=== PATIENT | male | born 1980 | race Caucasian/White ===

== ENCOUNTER 2018-03-07 21:07 | Inpatient (IN) ==
--- NOTE | 2018-03-07 23:13 | P.HPIM ---
History of Present Illness Service: [facility] Primary Care Physician: Reginald Mays History of Present Illness: 37 y/o male with a history of asthma, and seizures( as a child, not on medication) was a transfer from [facility] due to abdominal pain resulting in hydronephrosis of the left side. Patient states he has had abdominal pain on his left side that started this morning. He states the pain is an 8/10, constant, throbbing, with radiation to his back, with associated nausea and hematuria, worse with movement, better with pain medication. Denies any chest pain, sob, fever or chills. no history of kidney stones. Inpatient Certification Inpatient Certification: I certify that the inpatient services were ordered in accordance with Medicare regulations governing the order. This includes certification that hospital inpatient services are reasonable and necessary and in the case of services not specified as inpatient-only under 42 CFR 419.22(n), that they are appropriately provided as inpatient services in accordance to with the 2-midnight benchmark under 43 CFR 412.3(e) Estimated Total Length of Stay (Days): 2 Plans for Post Hospital Care: Home Review of Systems Review of Systems: all other systems reviewed are negative PMFSH History History Provided By: Patient Medical History Medical History Asthma (Acute) Seizures (Acute) Surgical History Surgical History Hx of tympanostomy tubes (Acute) Pneumothorax (Acute) Family History Family History Other Family history non-contributory Social History Social History Substance History: No History of Abuse Second Hand Smoke Exposure: No Smoking Status: Former smoker Tobacco Type: Cigarettes How Often Do You Have a Drink Containing Alcohol: Never Recent Travel in [place] within the Last 8 Weeks: No Recent Out of Country Travel within the Last 8 Weeks: No Medications and Allergies Allergies Allergy/AdvReac Type Severity Reaction Status Date / Time meperidine [From Demerol] Allergy Hives Verified 03/09/18 04:22 Active Medications: Active Medications Acetaminophen (Tylenol) 650 mg PO Q4H PRN PRN Reason: Temp > 100.4 Ondansetron HCl (Zofran Inj) 4 mg IV.PUSH Q6H PRN PRN Reason: NAUSEA OR VOMITING Sodium Chloride (Ns Flush) 2 ml IV.FLUSH BID CHLOE Sodium Chloride (Ns Flush) 2 ml IV.FLUSH PRN PRN PRN Reason: FLUSH AFTER USING IV ACCESS Physical Exam Narrative: GENERAL: Thin patient in no distress SKIN: Warm and dry. EYES: No scleral icterus. No injection or drainage. NECK: Supple, trachea midline. No JVD or lymphadenopathy. CARDIOVASCULAR: Regular rate and rhythm without murmurs, gallops, or rubs. RESPIRATORY: Breath sounds equal bilaterally. No accessory muscle use. GASTROINTESTINAL: Abdomen soft, non-tender, nondistended. MUSCULOSKELETAL: No cyanosis, or edema. BACK: Nontender without obvious deformity. No CVA tenderness. Results Labs CBC & Chem 7: 03/10/18 04:23 03/10/18 04:23 Caprini VTE Risk Assessment Caprini VTE Risk Assessment: No/Low Risk (score <= 1) Caprini Risk Assessment Model: Point Value = 1 Point Value = 2 Point Value = 3 Point Value = 5 Age 41-60 Minor surgery BMI > 25 kg/m2 Swollen legs Varicose veins or History of unexplained or recurrent spontaneous Oral contraceptives or hormone replacement Sepsis (< 1 month) Serious lung disease, including pneumonia (< 1 month) Abnormal pulmonary function Acute myocardial infarction Congestive heart failure (< 1 month) History of inflammatory bowel disease Medical patient at bed rest Age 61-74 Arthroscopic surgery Major open surgery (> 45 min) Laparoscopic surgery (> 45 min) Malignancy Confined to bed (> 72 hours) Immobilizing plaster cast Central venous access Age >= 75 History of VTE Family history of VTE Factor V Leiden Prothrombin [id number] Lupus anticoagulant Anticardiolipin antibodies Elevated serum homocysteine Heparin-induced thrombocytopenia Other congenital or acquired thrombophilia Stroke (< 1 month) Elective arthroplasty Hip, pelvis, or leg fracture Acute spinal cord injury (< 1 month) Prophylaxis Regimen: Total Risk Factor Score Risk Level Prophylaxis Regimen 0-1 Low Early ambulation 2 Moderate Order ONE of the following: *Sequential Compression Device (SCD) *Heparin 5000 units SQ BID 3-4 Higher Order ONE of the following medications: *Heparin 5000 units SQ TID *Enoxaparin/Lovenox 40 mg SQ daily (WT < 150 kg, CrCl > 30 mL/min) *Enoxaparin/Lovenox 30 mg SQ daily (WT < 150 kg, CrCl > 10-29 mL/min) *Enoxaparin/Lovenox 30 mg SQ BID (WT < 150 kg, CrCl > 30 mL/min) AND/OR *Sequential Compression Device (SCD) 5 or more Highest Order ONE of the following medications: *Heparin 5000 units SQ TID (Preferred with Epidurals) *Enoxaparin/Lovenox 40 mg SQ daily (WT < 150 kg, CrCl > 30 mL/min) *Enoxaparin/Lovenox 30 mg SQ daily (WT < 150 kg, CrCl > 10-29 mL/min) *Enoxaparin/Lovenox 30 mg SQ BID (WT < 150 kg, CrCl > 30 mL/min) AND *Sequential Compression Device (SCD) Assessment and Plan Plan 37 y/o male with a history of asthma, and seizures(not on any medication) was a transfer from [facility] due to abdominal pain resulting in hydronephrosis of the left side. 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 -Consult to Urology for evaluation -Pain management with IV morphine -NPO -IVF DVT prophylaxis: SCDs Attending Attestation I saw and evaluated patient.I have reviewed labs,rads and BLINTZE ROLLER's assessment/ plan I agree with assessment and plan as documented in BLINTZE ROLLER's note. See additional attending comments below: Patient presenting with abdominal pain, found to have lt horse shoe kidney stone with attendant hydronephrosis, and acute kidney injury due to obstructive uropathy. He has clinical features in keeping with sepsis as well. urology consulted, patient started on IV antibiotics,pain control, fluid resuscitation. monitor progress.
[2018-03-08] MEDS: Sod Chloride 0.9% Inj 1,000 ML IV.CONT SCH ×3 (01:01→20:54)
[2018-03-08] MEDS: Morphine Inj 4 MG/ML Vial IV.PUSH PRN ×3 (01:02→20:55)
[2018-03-08 07:14] LABS: Hematocrit 32.3 % (39.0-51.0); Hemoglobin 10.4 gm/dL (13.0-17.0); Mean Corpuscular HGB Conc 32.3 % (32.0-36.0); Mean Corpuscular Hemoglobin 29.2 pg (27.0-34.0); Mean Corpuscular Volume 90.5 fL (80.0-100.0); Mean Platelet Volume 10.4 fL (7.0-11.0); Platelet Count 209 th/mm3 (150-450); Red Blood Count 3.57 mil/mm3 (4.50-5.90); Red Cell Distribution Width 14.5 % (11.6-17.2); White Blood Count 28.7 th/mm3 (4.0-11.0)
[2018-03-08 07:31] LABS: Alanine Aminotransferase 13 U/L (12-78); Albumin 3.7 g/dL (3.4-5.0); Anion Gap 14 meq/L (5-15); Aspartate Aminotransferase 10 U/L (15-37); Blood Urea Nitrogen 10 mg/dL (7-18); Carbon Dioxide 21.4 meq/L (21.0-32.0); Chloride 109 meq/L (98-107); Glomerular Filtration Rate 35 mL/min (>89); Glucose,Random 220 mg/dL (74-106); Potassium 3.4 meq/L (3.5-5.1); Sodium 144 meq/L (136-145)
[2018-03-08 07:33] LABS: Alkaline Phosphatase 62 U/L (45-117); Total Protein 6.6 g/dL (6.4-8.2)
--- NOTE | 2018-03-08 09:36 | P.PNIM ---
Subjective Interval history: Follow-up visit hydronephrosis, hematuria, possible sepsis. Patient seen and examined today. Reported by nurse to be tachycardic, hypotensive. Patient states he is having pain 6/10 back side, denies any dysuria. States that it is also painful when he takes deep breath. States he does not feel any chest pain nor the palpitations. Denies SOB/ dyspnea. Denies headaches, dizziness. Reports chills overnight. Physical Exam Vital signs: Vital Signs 03/07/18 23:39 03/08/18 04:25 Temperature 98.1 F 98.0 F Pulse Rate 77 68 Respiratory Rate 20 20 Blood Pressure 157/77 H 149/84 H Pulse Oximetry 97 96 Intake & Output 03/07/18 03/08/18 03/08/18 18:59 06:59 18:59 Intake Total 0 / 0 Output Total 325 / 325 Balance -325 / -325 Weight 52.8 kg Intake: Oral 0 / 0 Output: Urine 325 / 325 Other: Date of Last Bowel Movement 03/07/18 # Bowel Movements 0 Weight On Admission 52.8 kg Narrative: GENERAL: Thin patient in no distress SKIN: Warm and dry. EYES: No scleral icterus. No injection or drainage. NECK: Supple, trachea midline. No JVD or lymphadenopathy. CARDIOVASCULAR: Tachycardia. RESPIRATORY: Breath sounds equal bilaterally. No accessory muscle use. GASTROINTESTINAL: Abdomen soft, non-tender, nondistended. MUSCULOSKELETAL: No cyanosis, or edema. BACK: Nontender without obvious deformity. No CVA tenderness. Results Labs CBC & Chem 7: 03/08/18 06:11 03/08/18 15:00 Assessment and Plan Plan 37 y/o male with a history of asthma, and seizures(not on any medication) was a transfer from [facility] due to abdominal pain resulting in hydronephrosis of the left side. 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 -Consult to Urology for evaluation -Pain management with IV morphine -NPO -IVF DVT prophylaxis: SCDs, if no procedures today, will start heparin ATTENDING ADDENDUM: I have seen and examined patient. I have reviewed H&P, reviewed labs, rads. I have discussed the plan of care with ENRIQUE Moore and her documentation above reflects my assessment and plan as discussed with her. Patient presented with abdominal pain, found to have a horse shoe kidney stone with attendant hydronephrosis. He has also been having chills. He was tachycardic and hypotensive and required fluid resuscitation this morning. He has significant leucocytosis in keeping with a sepsis. Also has PARISH which is likely due to obstructive uropathy. Started on IV antibiotics, fluid bolus, sent blood and urine cultures, lactic acid. Keep on IV fluids. plan to transfer to [facility] Code Status: Full Code Discussed Condition With: Patient, nursing, Dr. lFeming Discharge Planning: Plan to DC home when clinically improved. Pending urology consult Progress Note: Quality VTE Deep Vein Thrombosis/Pulmonary Embolism Present on Admission: No
[2018-03-08 09:42] LABS: Lymphocytes 3 % (9-44); Monocytes 6 % (0-8)
[2018-03-08 09:43] LABS: Platelet Estimate Normal (Normal); Platelet Morphology Normal (Normal)
[2018-03-08] MEDS: Sod Chloride 0.9% Inj 1,000 ML IV.SIG SCH ×5 (09:43→15:05)
[2018-03-08] MEDS ORDERED: Vancomycin Inj 1,000 MG in Sodium Chlor 0.9% Inj 250 ML IV.SIG ONE (11:30)
[2018-03-08] MEDS: Piperacil/Tazo 3.375 GM Premix 3.375 GM/50 ML PIGGYBACK IV.SIG SCH ×3 (11:35→21:00)
[2018-03-08 15:26] LABS: Activated Partial Thrombo Time 28.9 sec (23.4-31.7)
--- NOTE | 2018-03-08 15:26 | P.CONURO ---
History of Present Illness Service: [facility] Consult date: 03/08/18 Requesting Physician: Benedict Little Reason for Consult: Urosepsis, hydronephrosis of Left Horse shoe kidney Primary Care Provider: Reginald Mays Chief Complaint: Blood in urine History of Present Illness: Patient transferred from [facility], last night with complaint of gross hematuria. Also, some mild left flank and LLQ discomfort. Non-contrast CT scan there shows a severely hydronephrotic left side of a HORSESHOE KIDNEY discovered for the first time; previously unknown to the patient. Last night the CBC, BMP, GFR were all normal. But UA showed infection. Now pt. is septic, WBC 57997 with bands, GFR 35. Lactate 6.9. Patient agrees to having the left kidney drained; either by cystoscopic placement of urinary stent in the OR, or by Interventional Radiologist placing a percutaneous nephrostomy. Patient's mother is present in the room. She says that pt. had a UTI in September, was given antibiotics in [place]. Patient did not follow up with a doctor after returning to [facility]. No other Urological history. No dysuria, colic, stones. [facility] - History History Provided By: Patient, Family Member (Mother), Medical Record ([facility] ED records, CT scan.) - Medical History Medical History: Medical History (Last Reviewed 03/07/18 @ 23:40 by MIKAYLA Mitchell) Asthma Seizures - Surgical History Surgical History: Surgical History (Last Reviewed 03/07/18 @ 23:41 by MIKAYLA Mitchell) Hx of tympanostomy tubes Pneumothorax - Family History Family History: Family History (Last Reviewed 03/08/18 @ 00:42 by MIKAYLA Mitchell) Other Family history non-contributory - Social History I have reviewed the patient's Social History: Yes - Tobacco History Second Hand Smoke Exposure: No Tobacco Use In Past 30 Days: No Smoking Status: Former smoker Tobacco Type: Cigarettes - Alcohol History How Often Do You Have a Drink Containing Alcohol: Never - Substance Use History Substance History: No History of Abuse - Immunization History Hx Influenza Vaccine This Season: No Medications and Allergies Active Medications: Active Medications Acetaminophen (Tylenol) 650 mg PO Q4H PRN PRN Reason: Temp > 100.4 Sodium Chloride (Ns Inj) 1,000 mls @ 100 mls/hr IV.CONT .Q10H [facility] Last Admin: 03/08/18 11:35 Dose: 100 mls/hr Piperacillin/Tazobactam/Dextrose (Zosyn 3.375 Gm Premix) 3.375 gm in 50 mls @ 100 mls/hr IV.SIG Q6H [facility] Last Infusion: 03/08/18 12:22 Dose: Infused Morphine Sulfate (Morphine Inj) 2 mg IV.PUSH Q4H PRN PRN Reason: pain 1 to 10 Last Admin: 03/08/18 04:42 Dose: 2 mg Ondansetron HCl (Zofran Inj) 4 mg IV.PUSH Q6H PRN PRN Reason: NAUSEA OR VOMITING Last Admin: 03/08/18 01:03 Dose: 4 mg Sodium Chloride (Ns Flush) 2 ml IV.FLUSH BID [facility] Last Admin: 03/08/18 09:43 Dose: Not Given Sodium Chloride (Ns Flush) 2 ml IV.FLUSH PRN PRN PRN Reason: FLUSH AFTER USING IV ACCESS Allergies Allergy/AdvReac Type Severity Reaction Status Date / Time No Known Allergies Allergy Unverified 03/07/18 23:05 Physical Exam Vital Signs - 24 hr 03/07/18 23:39 03/08/18 04:25 03/08/18 09:15 Temperature 98.1 F 98.0 F 97.3 F L Pulse Rate 77 68 142 H Respiratory Rate 20 20 16 Blood Pressure 157/77 H 149/84 H 84/53 L Pulse Oximetry 97 96 96 03/08/18 11:25 03/08/18 12:00 03/08/18 12:12 Temperature 97.5 F L Pulse Rate 124 H 123 H Respiratory Rate 18 24 Blood Pressure 98/56 L 99/59 L Pulse Oximetry 99 03/08/18 12:13 03/08/18 12:15 03/08/18 12:30 Temperature 99.1 F Pulse Rate 141 H 123 H 128 H Respiratory Rate 24 25 H 21 Blood Pressure 98/63 L 105/68 99/67 L Pulse Oximetry 93 L 99 97 03/08/18 12:45 03/08/18 13:00 Temperature Pulse Rate 128 H 104 H Respiratory Rate 23 19 Blood Pressure 100/63 107/70 Pulse Oximetry 97 98 Physical Exam: GENERAL: This is a well-nourished, well-developed, thin patient, in no apparent distress, lying in bed quietly, a good historian. SKIN: No rashes, ecchymoses or lesions. Cool and dry. HEAD: Atraumatic. Normocephalic. No temporal or scalp tenderness. EYES: Pupils equal round and reactive. Extraocular motions intact. No scleral icterus. No injection or drainage. ENT: Nose without bleeding, purulent drainage or septal hematoma. Throat without erythema, tonsillar hypertrophy or exudate. Uvula midline. Airway patent. NECK: Trachea midline. No JVD or lymphadenopathy. Supple, nontender, no meningeal signs. CARDIOVASCULAR: Pulse Regular rate and rhythm . RESPIRATORY: Not examined GASTROINTESTINAL: Abdomen RT side:soft, non-tender, nondistended. No hepato- splenomegaly, or palpable masses. No guarding. LFT side: mild direct tenderness with guarding. No rebound. GENITOURINARY: EXT GENITALIA: WNL: Penis circumcised, testes WNL. FLANKS: Tender LFT to percussion. RECTUM/PROSTATE: Not examined. MUSCULOSKELETAL: Extremities without clubbing, cyanosis, or edema. No joint tenderness, effusion, or edema noted. No calf tenderness. NEUROLOGICAL: Awake and alert. Cranial nerves II through XII intact. Motor and sensory grossly within normal limits. Five out of 5 muscle strength in all muscle groups. Normal speech. Lab results reviewed: Yes Laboratory Results - last 24 hr 03/08/18 03/08/18 03/08/18 06:11 06:11 11:00 WBC 28.7 H RBC 3.57 L Hgb 10.4 L Hct 32.3 L MCV 90.5 MCH 29.2 MCHC 32.3 RDW 14.5 Plt Count 209 MPV 10.4 Prelim Diff (Auto) Manual diff required WBC Differential Manual diff final Seg Neuts % (Manual) 84 H Band Neuts % (Manual) 7 H Lymphocytes % (Manual) 3 L Monocytes % (Manual) 6 Abs Neuts (Manual) 26.1 H Differential Comment . Platelet Estimate Normal Platelet Morphology Normal Sodium 144 Potassium 3.4 L Chloride 109 H Carbon Dioxide 21.4 Anion Gap 14 BUN 10 Creatinine 2.14 H Estimated GFR 35 L Random Glucose 220 H Lactic Acid 6.9 H* Calcium 8.0 L Total Bilirubin 1.1 H AST 10 L ALT 13 Alkaline Phosphatase 62 Total Protein 6.6 Albumin 3.7 Result Diagrams: 03/08/18 06:11 03/08/18 15:00 Personally reviewed images: Yes Assessment and Plan - Assessment (1) Sepsis due to urinary tract infection Code(s): A41.9 - Sepsis, unspecified organism; N39.0 - Urinary tract infection, site not specified Status: Acute Onset Date: ~03/07/18 (2) Hydronephrosis of left kidney Code(s): N13.30 - Unspecified hydronephrosis Status: Chronic (3) Horseshoe kidney Code(s): Q63.1 - Lobulated, fused and horseshoe kidney Status: Chronic Onset Date: Unknown - Plan Interventional Radiology has agreed to place a Percutaneous Nephrostomy into the LEFT kidney today. Back up plan is to try to place a urinary stent cystoscopically in the OR. However, there is a great possibility that the presumed UPJ stenosis will prevent passage of guide wires and stent. Discussed Condition With: Patient, mother, nurse Mckenzie, Dr. Burak Turpin, Interventional Radiologist Dr. Coates.
[2018-03-08 15:56] LABS: Albumin 2.7 g/dL (3.4-5.0); Calcium 6.7 mg/dL (8.5-10.1); Carbon Dioxide 23.3 meq/L (21.0-32.0); Potassium 4.5 meq/L (3.5-5.1); Total Protein 4.9 g/dL (6.4-8.2)
[2018-03-08] MEDS ORDERED: fentaNYL Citrate Inj 250 MCG/5 ML Ampul ONE (15:56)
[2018-03-08] MEDS ORDERED: Lidocaine PF 1% Inj 30 ML Vial ONE (15:57)
--- NOTE | 2018-03-08 16:48 | P.RAD ---
Post Procedure Progress Note - Pre Procedure Diagnosis (1) Hydronephrosis of left kidney - Post Procedure Diagnosis (1) Hydronephrosis of left kidney - Procedure Information Procedure Date: 03/08/18 Supervising Radiologist: Sarabjit Coates MD Anesthesia: Conscious Sedation - Plan of Activity Patient to Unit: Nursing Unit Patient Condition: Good See PACS Report for procedural detail/treatment.
[2018-03-08] MEDS ORDERED: Iohexol 350 MG/ML 50 ML Vial (for Rad Diag) IVCONTRAST ONE (16:54)
[2018-03-08 17:49] LABS: Amorphous Sediment,Urine Rare /hpf; Bacteria,Urine Occasional /hpf; Bilirubin,Urine Negative (Negative); Clarity,Urine Cloudy (Clear); Color,Urine Amber (Yellw/Straw); Glucose,Urine (UA) 50 mg/dL (Negative); Leukocyte Esterase,Urine Negative (Negative); Nitrite,Urine Negative (Negative); Specific Gravity,Urine 1.019 (1.002-1.035); Squamous Epithelial Cell,Urine <1 /hpf (0-5)
[2018-03-08] MEDS: Acetaminophen 325 MG Tablet PO PRN (18:24)
--- NOTE | 2018-03-08 19:35 | ECG ---
Date Performed: 03/08/2018 Time Performed: 09:37:58 PTAGE: 37 years EKG: SINUS TACHYCARDIA ABNORMAL RHYTHM ECG NO PREVIOUS TRACING DOCTOR: Kartik Fang Interpretating Date/Time 03/08/2018 19:34:12
[2018-03-08 22:31] LABS: Hematocrit 17.6 % (39.0-51.0); Hemoglobin 5.8 gm/dL (13.0-17.0)
[2018-03-08 23:34] LABS: Hematocrit 17.3 % (39.0-51.0); Hemoglobin 5.8 gm/dL (13.0-17.0)
[2018-03-08] MEDS ORDERED: Sodium Chlor 0.9% Inj 250 ML IV.SIG SCH (23:45)
[2018-03-09] MEDS: Sod Chloride 0.9% Inj 1,000 ML IV.CONT SCH ×4 (02:41→23:30)
[2018-03-09 03:56] LABS: Baso % (Auto) 0.2 % (0.0-2.0); Eos % (Auto) 0.1 % (0.0-4.0); Hematocrit 24.4 % (39.0-51.0); Hemoglobin 8.4 gm/dL (13.0-17.0); Lymph # (Auto) 1.6 th/mm3 (1.0-4.8); Lymph % (Auto) 9.2 % (9.0-44.0); Mean Corpuscular HGB Conc 34.4 % (32.0-36.0); Mean Corpuscular Hemoglobin 29.8 pg (27.0-34.0); Mean Corpuscular Volume 86.9 fL (80.0-100.0); Mono # (Auto) 1.5 th/mm3 (0.0-0.9); Mono % (Auto) 8.4 % (0.0-8.0); Neut # (Auto) 14.5 th/mm3 (1.8-7.7); Neut % (Auto) 82.1 % (16.0-70.0); Platelet Count 112 th/mm3 (150-450); Red Blood Count 2.81 mil/mm3 (4.50-5.90); Red Cell Distribution Width 14.3 % (11.6-17.2); White Blood Count 17.7 th/mm3 (4.0-11.0)
[2018-03-09] MEDS: Piperacil/Tazo 3.375 GM Premix 3.375 GM/50 ML PIGGYBACK IV.SIG SCH ×4 (04:23→21:12)
[2018-03-09 04:31] LABS: Albumin 2.7 g/dL (3.4-5.0); Calcium 7.2 mg/dL (8.5-10.1); Carbon Dioxide 22.8 meq/L (21.0-32.0); Potassium 3.9 meq/L (3.5-5.1); Total Protein 5.2 g/dL (6.4-8.2)
--- NOTE | 2018-03-09 07:39 | P.PNURO ---
Subjective Patient symptoms today: Pt seen and examined. Urine from price is dark and appears to be old blood. Left PNCT blood tinged. PT s/p 2 Units PRBC's for Hgb 5.8. Now 8.4. Objective Vital Signs: Vital Signs 03/08/18 09:15 03/08/18 11:25 03/08/18 12:00 Temperature 97.3 F L 97.5 F L Pulse Rate 142 H 124 H 123 H Respiratory Rate 16 18 Blood Pressure 84/53 L 98/56 L Pulse Oximetry 96 99 03/08/18 12:12 03/08/18 12:13 03/08/18 12:15 Temperature 99.1 F Pulse Rate 141 H 123 H Respiratory Rate 24 24 25 H Blood Pressure 99/59 L 98/63 L 105/68 Pulse Oximetry 93 L 99 03/08/18 12:30 03/08/18 12:45 03/08/18 13:00 Temperature Pulse Rate 128 H 128 H 104 H Respiratory Rate 21 23 19 Blood Pressure 99/67 L 100/63 107/70 Pulse Oximetry 97 97 98 03/08/18 13:15 03/08/18 13:30 03/08/18 13:45 Temperature Pulse Rate 97 H 118 H 111 H Respiratory Rate 16 24 20 Blood Pressure 110/69 110/70 113/72 Pulse Oximetry 99 99 100 03/08/18 14:00 03/08/18 14:15 03/08/18 14:30 Temperature Pulse Rate 101 H 101 H 101 H Respiratory Rate 15 15 15 Blood Pressure 113/72 113/71 111/74 Pulse Oximetry 99 99 99 03/08/18 14:45 03/08/18 15:00 03/08/18 15:20 Temperature Pulse Rate 104 H 107 H 119 H Respiratory Rate 18 19 28 H Blood Pressure 115/76 122/75 116/73 Pulse Oximetry 99 100 100 03/08/18 15:30 03/08/18 16:58 03/08/18 17:00 Temperature Pulse Rate 113 H 106 H 104 H Respiratory Rate 21 17 15 Blood Pressure 115/72 Pulse Oximetry 98 100 03/08/18 17:14 03/08/18 17:30 03/08/18 17:32 Temperature Pulse Rate 111 H 106 H 106 H Respiratory Rate 19 Blood Pressure 114/69 Pulse Oximetry 99 03/08/18 18:00 03/08/18 18:02 03/08/18 18:53 Temperature Pulse Rate 94 H 106 H Respiratory Rate 16 18 Blood Pressure 115/69 Pulse Oximetry 99 03/08/18 21:41 03/08/18 22:00 03/09/18 01:02 Temperature 99.1 F Pulse Rate 107 H 115 H 109 H Respiratory Rate 18 Blood Pressure 129/60 Pulse Oximetry 99 03/09/18 01:13 03/09/18 01:18 03/09/18 01:56 Temperature 98.3 F 98.3 F Pulse Rate 97 H 107 H 86 Respiratory Rate 18 16 20 Blood Pressure 107/61 107/61 Pulse Oximetry 99 100 03/09/18 01:58 03/09/18 02:02 03/09/18 02:05 Temperature 98.3 F 98.6 F Pulse Rate 100 H 89 100 H Respiratory Rate 19 21 Blood Pressure 101/61 94/61 L Pulse Oximetry 100 100 03/09/18 02:38 03/09/18 04:39 03/09/18 04:40 Temperature 99.0 F Pulse Rate 96 H 98 H Respiratory Rate 16 23 Blood Pressure 104/63 Pulse Oximetry 100 03/09/18 06:18 Temperature Pulse Rate 107 H Respiratory Rate Blood Pressure Pulse Oximetry Intake & Output 03/08/18 03/09/18 03/09/18 18:59 06:59 18:59 Intake Total 7470 / 7470 1900 / 1900 Output Total 390 / 390 455 / 455 Balance 7080 / 7080 1445 / 1445 Weight 52.8 kg 53.9 kg Intake: IV 7350 / 7350 1100 / 1100 NS Inj 1,000 ML @ 100 mls/hr IV 1000 / 1000 1000 / 1000 .CONT .Q10H [facility] Rx#:[id number] Zosyn 3.375 GM Premix 3.375 gm 100 / 100 100 / 100 In 50 ml @ 100 mls/hr IV.SIG Q6H [facility] Rx#:[id number] NS Inj 1,000 ML @ 2000 mls/hr 6000 / 6000 IV.SIG Q30M [facility] Rx#:[id number] Vancomycin Inj 1,000 MG In NS 250 / 250 Inj 250 ML @ 250 mls/hr IV.SIG ONCE ONE Rx#:[id number] Oral 120 / 120 Intake (Blood Product) Amt 800 / 800 Rbc As-3 Leukoreduced Unit 400 / 400 [id number] Rbc As-3 Leukoreduced Unit 400 / 400 [id number] Output: Urine 350 / 350 Urine Amount (Catheter) 400 / 400 Indwelling Urethral Catheter 400 / 400 Urine Amount (Stoma) 55 / Nephrostomy Tube Left Other: Date of Last Bowel Movement 03/07/18 03/07/18 Result Diagrams: 03/09/18 03:44 03/09/18 03:44 Medications and IVs: Active Medications Generic Name Dose Route Start Last Admin Trade Name Freq PRN Reason Stop Dose Admin Acetaminophen 650 mg 03/07/18 23:05 03/08/18 18:24 Tylenol PO 650 mg Q4H PRN Administration Temp > 100.4 Sodium Chloride 1,000 mls @ 100 mls/hr 03/08/18 00:40 03/09/18 02:41 Ns Inj IV.CONT 100 mls/hr .Q10H [facility] Administration Piperacillin/Tazobactam/Dextrose 3.375 gm in 50 mls @ 100 mls/hr 03/08/18 10: 00 03/09/18 05:15 Zosyn 3.375 Gm Premix IV.SIG Infused Q6H [facility] Infusion Sodium Chloride 250 mls @ 15 mls/hr 03/08/18 23:45 03/09/18 01:09 Ns Inj IV.SIG 03/09/18 16:24 15 mls/hr ONCE [facility] Administration Morphine Sulfate 2 mg 03/08/18 00:38 03/08/18 20:55 Morphine Inj IV.PUSH 2 mg Q4H PRN Administration pain 1 to 10 Ondansetron HCl 4 mg 03/07/18 23:05 03/08/18 01:03 Zofran Inj IV.PUSH 4 mg Q6H PRN Administration NAUSEA OR VOMITING Sodium Chloride 2 ml 03/08/18 09:00 03/08/18 20:55 Ns Flush IV.FLUSH 2 ml BID [facility] Administration Sodium Chloride 2 ml 03/07/18 23:05 Ns Flush IV.FLUSH PRN PRN FLUSH AFTER USING IV ACCESS Objective Remarks: CV: sinus tach Abd:soft, mild distension; no rebound Price: old dark blood Ext: neg C/C/E Assessment and Plan - Assessment (1) Sepsis due to urinary tract infection Code(s): A41.9 - Sepsis, unspecified organism; N39.0 - Urinary tract infection, site not specified Status: Acute Onset Date: ~03/07/18 (2) Hydronephrosis of left kidney Code(s): N13.30 - Unspecified hydronephrosis Status: Chronic (3) Horseshoe kidney Code(s): Q63.1 - Lobulated, fused and horseshoe kidney Status: Chronic Onset Date: Unknown - Plan Interventional Radiology has agreed to place a Percutaneous Nephrostomy into the LEFT kidney today. Back up plan is to try to place a urinary stent cystoscopically in the OR. However, there is a great possibility that the presumed UPJ stenosis will prevent passage of guide wires and stent. 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
--- NOTE | 2018-03-09 09:46 | IR ---
EXAM DATE: 03/08/2018 5:13 PM EST AGE/SEX: 37 years / Male INDICATIONS: Patient presents with left side hydronephrosis in need of nephrostomy tube placement. CLINICAL DATA: This is the patient's initial encounter. Patient reports that signs and symptoms have been present for 1 day and indicates a pain score of 6/10. MEDICAL/SURGICAL HISTORY: . Asthma, Seizures, Hydronephrosis, Hematuria, . Tympanostomy tubes . COMPARISON: [facility] – [place], CT ABDOMEN & PELVIS W/O CONTRAST, 03/09/2018. . FLUORO TIME (min): 4.4 IMAGE SERIES: 3 RADIATION DOSE: 330.5 mGy CAK SEDATION TIME (min): 30 CONTRAST (cc): 40 Omnipaque (iohexol) 350 MEDICATION(S): 2 mg midazolam (Versed) IV 100 mcg fentanyl (Sublimaze) IV Prophylactic antibiotics were administered with appropriate pre-procedure timing. DEVICE(S): 10 Hungarian nephrostomy catheter Expel Drainage catheter with Twist-Loc Hub. . . PROCEDURE : 1. Ultrasound-guided puncture of the kidney. 2. Antegrade percutaneous pyelogram. 3. Percutaneous nephrostomy placement. 4. Conscious sedation with continuous EKG and oximetry monitoring. The risks, benefits and alternatives to the procedure were explained and verbal and written consent w as obtained. The site was prepped in sterile fashion. Full sterile technique was used, including ca p, mask, sterile gloves and gown and a large sterile sheet. Hand hygiene and 2% chlorhexidine and/or betadine/alcohol prep was utilized per protocol for cutaneous antisepsis. Sterile gel and sterile probe cover were utilized for ultrasound guidance. The skin and subcutaneous tissues were infiltrate d with local anesthetic solution. With ultrasound and fluoroscopic guidance the selected kidney was punctured and a percutaneous antegr jl pyelogram was performed demonstrating a dilated collecting system. Serial dilatation was perform ed and a prescribed nephrostomy tube was placed within the renal pelvis and sutured in place. Ultrasound of the left kidney demonstrates prominent echogenic material throughout the renal pelvis w hich may reflect hemorrhage or infection. 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 The collecting system is extremely abnormal with no normal calyces iden tified. Extensive clotted material was removed from the collecting system. Conscious sedation was performed with the prescribed dosages and duration as above in the presence of an independent trained radiology nurse to assist in the monitoring of the patient. EKG and oximetry remained stable throughout the procedure. The patient tolerated the procedure well and there were n o complications. The patient was sent to post anesthesia recovery in stable condition. CONCLUSION: 1. Uncomplicated nephrostomy tube placement as above. CT scan will be repeated to evaluate the kidne y following percutaneous drainage Electronically signed by: Sarabjit Coates MD Board Certified Radiologist 03/09/2018 9:44 AM EST
[2018-03-09] MEDS: Morphine Inj 4 MG/ML Vial IV.PUSH PRN ×2 (10:02→18:20)
--- NOTE | 2018-03-09 11:20 | CT ---
EXAM DATE: 03/09/2018 10:30 AM EST AGE/SEX: 37 years / Male INDICATIONS: Adnominal pain and distention post nephrostomy placement. CLINICAL DATA: This is the patient's initial encounter. Patient reports that signs and symptoms have been present for 1 day and indicates a pain score of 6/10. MEDICAL/SURGICAL HISTORY: Asthma. Seizures. Horseshoe kidney. Nephrostomy tube, left. RADIATION DOSE: 6.71 CTDI (mGy) COMPARISON: No prior exams available for comparison. TECHNIQUE: Multiple contiguous axial images were obtained through the abdomen. Images were obtained using multiple row detector helical technique. Using automated exposure control and adjustment of the mA and/or kV according to patient size, radiation dose was kept as low as reasonably achievable to o btain optimal diagnostic quality images. DICOM format image data is available electronically for rev iew and comparison. FINDINGS: A small left effusion is present with atelectasis at the left base. Small right-sided effusion is als o present. There is hypodensity within the liver compatible with cyst measuring 1.4 cm in segment 8 T he spleen is normal in size and free of focal defects. There is nephrostomy in place in a markedly en larged abnormal left kidney which has a horseshoe configuration and findings of parenchyma extending across the midline to a smaller right kidney. The tube is in the abnormal collection system and there is little recognizable kidney present. Perinephric stranding is present and there is a small amount of free fluid within the pelvis as well. Examination the pelvis demonstrates a decompressed urinary bladder with a Caldwell in place. No abnormal ly enlarged lymph nodes are identified. CONCLUSION: Small bilateral effusions and bibasilar atelectasis. Small amount of free fluid in the lower abdomen and in the pelvis. Left nephrostomy is present in a markedly abnormal enlarged left horseshoe kidney. The findings were discussed with Dr. Turpin at time of dictation. Electronically signed by: Sarabjit Coates MD Board Certified Radiologist 03/09/2018 11:19 AM EST
--- NOTE | 2018-03-09 14:12 | P.PNIM ---
Subjective Interval history: feels better today, pain has improved. No fevers or chills. Interval events: has hematuria and bloody drainage from nephrostomy, Hb dropped to 5's range overnight, was transfused with 2prbc, Hb 8.2 this morning. Physical Exam Vital signs: Vital Signs 03/08/18 14:15 03/08/18 14:30 03/08/18 14:45 Temperature Pulse Rate 101 H 101 H 104 H Respiratory Rate 15 15 18 Blood Pressure 113/71 111/74 115/76 Pulse Oximetry 99 99 99 03/08/18 15:00 03/08/18 15:20 03/08/18 15:30 Temperature Pulse Rate 107 H 119 H 113 H Respiratory Rate 19 28 H 21 Blood Pressure 122/75 116/73 115/72 Pulse Oximetry 100 100 98 03/08/18 16:58 03/08/18 17:00 03/08/18 17:14 Temperature Pulse Rate 106 H 104 H 111 H Respiratory Rate 17 15 19 Blood Pressure 114/69 Pulse Oximetry 100 99 03/08/18 17:30 03/08/18 17:32 03/08/18 18:00 Temperature Pulse Rate 106 H 106 H 94 H Respiratory Rate 16 Blood Pressure 115/69 Pulse Oximetry 99 03/08/18 18:02 03/08/18 18:53 03/08/18 21:41 Temperature Pulse Rate 106 H 107 H Respiratory Rate 18 Blood Pressure Pulse Oximetry 03/08/18 22:00 03/09/18 01:02 03/09/18 01:13 Temperature 99.1 F Pulse Rate 115 H 109 H 97 H Respiratory Rate 18 18 Blood Pressure 129/60 Pulse Oximetry 99 03/09/18 01:18 03/09/18 01:56 03/09/18 01:58 Temperature 98.3 F 98.3 F 98.3 F Pulse Rate 107 H 86 100 H Respiratory Rate 16 20 19 Blood Pressure 107/61 107/61 101/61 Pulse Oximetry 99 100 100 03/09/18 02:02 03/09/18 02:05 03/09/18 02:38 Temperature 98.6 F 99.0 F Pulse Rate 89 100 H 96 H Respiratory Rate 21 16 Blood Pressure 94/61 L 104/63 Pulse Oximetry 100 100 03/09/18 04:39 03/09/18 04:40 03/09/18 06:18 Temperature Pulse Rate 98 H 107 H Respiratory Rate 23 Blood Pressure Pulse Oximetry 03/09/18 09:15 03/09/18 10:05 Temperature Pulse Rate 121 H Respiratory Rate 15 Blood Pressure Pulse Oximetry Intake & Output 03/08/18 03/09/18 03/09/18 18:59 06:59 18:59 Intake Total 7470 / 7470 1900 / 1900 50 / 50 Output Total 390 / 390 455 / 455 Balance 7080 / 7080 1445 / 1445 50 / 50 Weight 52.8 kg 53.9 kg Intake: IV 7350 / 7350 1100 / 1100 50 / 50 NS Inj 1,000 ML @ 100 mls/hr IV 1000 / 1000 1000 / 1000 .CONT .Q10H CHLOE Rx#:[id number] Zosyn 3.375 GM Premix 3.375 gm 100 / 100 100 / 100 50 / 50 In 50 ml @ 100 mls/hr IV.SIG Q6H [facility]LOE Rx#:[id number] NS Inj 1,000 ML @ 2000 mls/hr 6000 / 6000 IV.SIG Q30M [facility]LOE Rx#:[id number] Vancomycin Inj 1,000 MG In NS 250 / 250 Inj 250 ML @ 250 mls/hr IV.SIG ONCE ONE Rx#:[id number] Oral 120 / 120 Intake (Blood Product) Amt 800 / 800 Rbc As-3 Leukoreduced Unit 400 / 400 [id number] Rbc As-3 Leukoreduced Unit 400 / 400 [id number] Output: Urine 350 / 350 Urine Amount (Catheter) 400 / 400 Indwelling Urethral Catheter 400 / 400 Urine Amount (Stoma) 40 / 40 55 / 55 Nephrostomy Tube Left 40 / 40 55 / 55 Other: Date of Last Bowel Movement 03/07/18 03/07/18 03/07/18 Narrative: GENERAL: Thin patient in no distress SKIN: Warm and dry. EYES: No scleral icterus. No injection or drainage. NECK: Supple, trachea midline. No JVD or lymphadenopathy. CARDIOVASCULAR: Tachycardia. RESPIRATORY: Breath sounds equal bilaterally. No accessory muscle use. GASTROINTESTINAL: Abdomen soft, non-tender, nondistended. Lt nephrostomy tube with blood drainage. GUN:price cath in situ, hematuria noted. MUSCULOSKELETAL: No cyanosis, or edema. BACK: Nontender without obvious deformity. No CVA tenderness. Urinary Catheter Management Indwelling Urethral Catheter: Cath placed during this visit: no Results Labs CBC & Chem 7: 03/09/18 03:44 03/09/18 03:44 Labs: Microbiology 03/08/18 11:00 Blood - Peripheral Aerobic Blood Culture - Preliminary No growth in 1 day 03/08/18 11:00 Blood - Peripheral Anaerobic Blood Culture - Preliminary No growth in 1 day 03/08/18 10:54 Blood - Peripheral Aerobic Blood Culture - Preliminary No growth in 1 day 03/08/18 10:54 Blood - Peripheral Anaerobic Blood Culture - Preliminary No growth in 1 day Imaging Imaging: Impressions Nephrostomy 03/08/18 00:00 CONCLUSION: 1. Uncomplicated nephrostomy tube placement as above. CT scan will be repeated to evaluate the kidney following percutaneous drainage Abdomen/Pelvis CT 03/09/18 00:00 CONCLUSION: Small bilateral effusions and bibasilar atelectasis. Small amount of free fluid in the lower abdomen and in the pelvis. Left nephrostomy is present in a markedly abnormal enlarged left horseshoe kidney. The findings were discussed with Dr. Turpin at time of dictation. Assessment and Plan (1) Sepsis due to urinary tract infection: Code(s): A41.9 - Sepsis, unspecified organism; N39.0 - Urinary tract infection, site not specified Status: Acute Onset Date: ~03/07/18 (2) Hydronephrosis of left kidney: Code(s): N13.30 - Unspecified hydronephrosis Status: Chronic Onset Date: Unknown (3) Horseshoe kidney: Code(s): Q63.1 - Lobulated, fused and horseshoe kidney Status: Chronic Onset Date: Unknown Plan 37 y/o male with a history of asthma, and seizures(not on any medication) was a transfer from [facility] due, CT abdo/pelvis revealed a horse shoe kidney stone and hydronephrosis. 1.Sepsis likely due to infected renal stone -Leucocytosis trending down,28-->17, lactate trending down 6.9-->3.3. -blood cultures negative. -BP responded appropriately to fluids, he remains tachycardic. -continue IV fluids. -Continue IV Zosyn, adjust dose to renal function. repeat lactic acid. 2.Acute kidney injury-due to obstructive uropathy- Cr 2.14-->1.51, trending down after nephrostomy. avoid nephrotoxins, maintain strict i/o. continue to hydrate 3.Lt Hydronephrosis with possible hemorrhage due to Horse shoe kidney- appreciate urology recs, patient s/p nephrostomy 4. Acute anemia due to blood loss-secondary to hematuria. Hb 8.4 this morning. Monitor H/h q6h, transfuse if Hb<7. DVT prophylaxis: SCDs, no heparin given hematuria. Progress Note: Quality VTE Deep Vein Thrombosis/Pulmonary Embolism Present on Admission: No
[2018-03-09] MEDS ORDERED: Polyethylene Glycol 3350 17 GM Packet PO PRN (14:24)
[2018-03-09 17:39] LABS: Hemoglobin 8.3 gm/dL (13.0-17.0)
[2018-03-09] MEDS: Senna/Docusate Sodium 8.6/50 MG Tablet PO SCH (21:12)
[2018-03-09 22:13] LABS: Hemoglobin 8.5 gm/dL (13.0-17.0)
[2018-03-10] MEDS: Piperacil/Tazo 3.375 GM Premix 3.375 GM/50 ML PIGGYBACK IV.SIG SCH ×4 (03:52→21:02)
[2018-03-10] MEDS: Sod Chloride 0.9% Inj 1,000 ML IV.CONT SCH ×3 (03:53→12:49)
[2018-03-10 05:03] LABS: Baso % (Auto) 0.1 % (0.0-2.0); Hematocrit 26.1 % (39.0-51.0); Hemoglobin 8.8 gm/dL (13.0-17.0); Lymph # (Auto) 1.1 th/mm3 (1.0-4.8); Mean Corpuscular HGB Conc 33.7 % (32.0-36.0); Mean Corpuscular Hemoglobin 29.8 pg (27.0-34.0); Mean Corpuscular Volume 88.3 fL (80.0-100.0); Mean Platelet Volume 9.9 fL (7.0-11.0); Mono # (Auto) 1.3 th/mm3 (0.0-0.9); Mono % (Auto) 7.4 % (0.0-8.0); Neut # (Auto) 15.7 th/mm3 (1.8-7.7); Neut % (Auto) 86.5 % (16.0-70.0); Platelet Count 125 th/mm3 (150-450); Red Blood Count 2.96 mil/mm3 (4.50-5.90); Red Cell Distribution Width 14.5 % (11.6-17.2); White Blood Count 18.2 th/mm3 (4.0-11.0)
[2018-03-10 05:34] LABS: Alanine Aminotransferase 12 U/L (12-78); Albumin 2.6 g/dL (3.4-5.0); Alkaline Phosphatase 45 U/L (45-117); Anion Gap 11 meq/L (5-15); Aspartate Aminotransferase 16 U/L (15-37); Blood Urea Nitrogen 13 mg/dL (7-18); Calcium 8.2 mg/dL (8.5-10.1); Carbon Dioxide 20.9 meq/L (21.0-32.0); Chloride 111 meq/L (98-107); Glomerular Filtration Rate 78 mL/min (>89); Glucose,Random 63 mg/dL (74-106); Potassium 3.9 meq/L (3.5-5.1); Sodium 143 meq/L (136-145); Total Protein 6.2 g/dL (6.4-8.2)
--- NOTE | 2018-03-10 08:34 | P.PNURO ---
Subjective Patient symptoms today: Pt seen and examined. Feeling better today c/w yesterday. Objective Vital Signs: Vital Signs 03/09/18 09:15 03/09/18 10:05 03/09/18 10:15 Temperature Pulse Rate 121 H 130 H Respiratory Rate 15 Blood Pressure Pulse Oximetry 03/09/18 12:03 03/09/18 14:10 03/09/18 16:35 Temperature Pulse Rate 120 H 126 H 115 H Respiratory Rate Blood Pressure Pulse Oximetry 03/09/18 16:42 03/09/18 18:50 03/09/18 20:00 Temperature 99.2 F Pulse Rate 117 H 124 H Respiratory Rate 22 20 Blood Pressure 131/90 Pulse Oximetry 95 03/09/18 20:25 03/09/18 21:00 03/09/18 21:25 Temperature Pulse Rate 120 H 117 H Respiratory Rate 22 24 Blood Pressure 146/89 H Pulse Oximetry 98 03/09/18 22:00 03/09/18 22:17 03/09/18 23:00 Temperature Pulse Rate 130 H 127 H 118 H Respiratory Rate 26 H 18 Blood Pressure 147/96 H 141/83 H Pulse Oximetry 98 98 03/10/18 00:00 03/10/18 00:35 03/10/18 01:00 Temperature 99.1 F Pulse Rate 120 H 114 H 111 H Respiratory Rate 22 27 H Blood Pressure 157/82 H 137/87 Pulse Oximetry 98 98 03/10/18 02:00 03/10/18 02:12 03/10/18 03:00 Temperature Pulse Rate 110 H 105 H 119 H Respiratory Rate 21 26 H Blood Pressure 147/88 H 155/93 H Pulse Oximetry 99 99 03/10/18 04:00 03/10/18 04:06 03/10/18 06:08 Temperature 100.2 F H Pulse Rate 110 H 110 H 124 H Respiratory Rate 19 Blood Pressure 136/85 Pulse Oximetry 98 Intake & Output 03/09/18 03/10/18 03/10/18 18:59 06:59 18:59 Intake Total 990 / 990 1100 / 1100 Output Total 1950 / 1950 1520 / 1520 Balance -960 / -960 -420 / -420 Weight 59.7 kg Intake: IV 350 / 350 1100 / 1100 NS Inj 1,000 ML @ 100 mls/hr IV 1000 / 1000 .CONT .Q10H [facility]LOE Rx#:[id number] Zosyn 3.375 GM Premix 3.375 gm 100 / 100 100 / 100 In 50 ml @ 100 mls/hr IV.SIG Q6H [facility]LOE Rx#:[id number] NS Inj 250 ML @ 15 mls/hr IV. 250 / 250 SIG ONCE CHLOE Rx#:[id number] Oral 640 / 640 Output: Urine 350 / 350 Urine Amount (Catheter) 1300 / 1300 1050 / 1050 Indwelling Urethral Catheter 1300 / 1300 1050 / 1050 Urine Amount (Stoma) 300 / 300 470 / 470 Nephrostomy Tube Left 300 / 300 470 / 470 Other: Date of Last Bowel Movement 03/07/18 03/10/18 Result Diagrams: 03/10/18 04:23 03/10/18 04:23 Imaging: Impressions Nephrostomy 03/08/18 00:00 CONCLUSION: 1. Uncomplicated nephrostomy tube placement as above. CT scan will be repeated to evaluate the kidney following percutaneous drainage Abdomen/Pelvis CT 03/09/18 00:00 CONCLUSION: Small bilateral effusions and bibasilar atelectasis. Small amount of free fluid in the lower abdomen and in the pelvis. Left nephrostomy is present in a markedly abnormal enlarged left horseshoe kidney. The findings were discussed with Dr. Turpin at time of dictation. Medications and IVs: Active Medications Generic Name Dose Route Start Last Admin Trade Name Freq PRN Reason Stop Dose Admin Acetaminophen 650 mg 03/07/18 23:05 03/08/18 18:24 Tylenol PO 650 mg Q4H PRN Administration Temp > 100.4 Al Hydroxide/Mg Hydroxide 30 ml 03/09/18 14:24 03/09/18 18:04 Milk Of Magnesia Liq PO 30 ml Q12H PRN Administration Moderate Constipation Sodium Chloride 1,000 mls @ 100 mls/hr 03/08/18 00:40 03/10/18 06:01 Ns Inj IV.CONT 150 mls/hr .Q10H CHLOE Administration Piperacillin/Tazobactam/Dextrose 3.375 gm in 50 mls @ 100 mls/hr 03/08/18 10: 00 03/10/18 04:33 Zosyn 3.375 Gm Premix IV.SIG Infused Q6H [facility]LOE Infusion Morphine Sulfate 2 mg 03/08/18 00:38 03/09/18 18:20 Morphine Inj IV.PUSH 2 mg Q4H PRN Administration pain 1 to 10 Ondansetron HCl 4 mg 03/07/18 23:05 03/08/18 01:03 Zofran Inj IV.PUSH 4 mg Q6H PRN Administration NAUSEA OR VOMITING Polyethylene Glycol 17 gm 03/09/18 14:24 03/09/18 21:14 Miralax PO 17 gm DAILY PRN Administration Moderate-severe constipation Senna/Docusate Sodium 1 tab 03/09/18 21:00 03/09/18 21:12 Allyssa-Colace PO 1 tab BID CHLOE Administration Sodium Chloride 2 ml 03/08/18 09:00 03/09/18 21:12 Ns Flush IV.FLUSH 2 ml BID CHLOE Administration Sodium Chloride 2 ml 03/07/18 23:05 Ns Flush IV.FLUSH PRN PRN FLUSH AFTER USING IV ACCESS Objective Remarks: CV: sinus tach Abd:soft, mild distension; no rebound Price: old dark blood Ext: neg C/C/E 03/10 CV: sinus tach Abd:soft,less tenderness and distension Price: blood tinged PCNT: bloody Assessment and Plan - Assessment (1) Sepsis due to urinary tract infection Code(s): A41.9 - Sepsis, unspecified organism; N39.0 - Urinary tract infection, site not specified Status: Acute Onset Date: ~03/07/18 (2) Hydronephrosis of left kidney Code(s): N13.30 - Unspecified hydronephrosis Status: Chronic (3) Horseshoe kidney Code(s): Q63.1 - Lobulated, fused and horseshoe kidney Status: Chronic Onset Date: Unknown - Plan Interventional Radiology has agreed to place a Percutaneous Nephrostomy into the LEFT kidney today. Back up plan is to try to place a urinary stent cystoscopically in the OR. However, there is a great possibility that the presumed UPJ stenosis will prevent passage of guide wires and stent. 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
--- NOTE | 2018-03-10 09:05 | P.PNIM ---
Subjective Interval history: overall feels better, having some dry heaves. some soreness at site of nephrostomy insertion. still having intermittent chills. Physical Exam Vital signs: Vital Signs 03/09/18 09:15 03/09/18 10:05 03/09/18 10:15 Temperature Pulse Rate 121 H 130 H Respiratory Rate 15 Blood Pressure Pulse Oximetry 03/09/18 12:03 03/09/18 14:10 03/09/18 16:35 Temperature Pulse Rate 120 H 126 H 115 H Respiratory Rate Blood Pressure Pulse Oximetry 03/09/18 16:42 03/09/18 18:50 03/09/18 20:00 Temperature 99.2 F Pulse Rate 117 H 124 H Respiratory Rate 22 20 Blood Pressure 131/90 Pulse Oximetry 95 03/09/18 20:25 03/09/18 21:00 03/09/18 21:25 Temperature Pulse Rate 120 H 117 H Respiratory Rate 22 24 Blood Pressure 146/89 H Pulse Oximetry 98 03/09/18 22:00 03/09/18 22:17 03/09/18 23:00 Temperature Pulse Rate 130 H 127 H 118 H Respiratory Rate 26 H 18 Blood Pressure 147/96 H 141/83 H Pulse Oximetry 98 98 03/10/18 00:00 03/10/18 00:35 03/10/18 01:00 Temperature 99.1 F Pulse Rate 120 H 114 H 111 H Respiratory Rate 22 27 H Blood Pressure 157/82 H 137/87 Pulse Oximetry 98 98 03/10/18 02:00 03/10/18 02:12 03/10/18 03:00 Temperature Pulse Rate 110 H 105 H 119 H Respiratory Rate 21 26 H Blood Pressure 147/88 H 155/93 H Pulse Oximetry 99 99 03/10/18 04:00 03/10/18 04:06 03/10/18 06:08 Temperature 100.2 F H Pulse Rate 110 H 110 H 124 H Respiratory Rate 19 Blood Pressure 136/85 Pulse Oximetry 98 Intake & Output 03/09/18 03/10/18 03/10/18 18:59 06:59 18:59 Intake Total 990 / 990 1100 / 1100 Output Total 1950 / 1950 1520 / 1520 Balance -960 / -960 -420 / -420 Weight 59.7 kg Intake: IV 350 / 350 1100 / 1100 NS Inj 1,000 ML @ 100 mls/hr IV 1000 / 1000 .CONT .Q10H HCLOE Rx#:[id number] Zosyn 3.375 GM Premix 3.375 gm 100 / 100 100 / 100 In 50 ml @ 100 mls/hr IV.SIG Q6H [facility]LOE Rx#:[id number] NS Inj 250 ML @ 15 mls/hr IV. 250 / 250 SIG ONCE CHLOE Rx#:[id number] Oral 640 / 640 Output: Urine 350 / 350 Urine Amount (Catheter) 1300 / 1300 1050 / 1050 Indwelling Urethral Catheter 1300 / 1300 1050 / 1050 Urine Amount (Stoma) 300 / 300 470 / 470 Nephrostomy Tube Left 300 / 300 470 / 470 Other: Date of Last Bowel Movement 03/07/18 03/10/18 Narrative: GENERAL: Thin patient in no distress SKIN: Warm and dry. EYES: No scleral icterus. No injection or drainage. NECK: Supple, trachea midline. No JVD or lymphadenopathy. CARDIOVASCULAR: Tachycardia. RESPIRATORY: Breath sounds equal bilaterally. No accessory muscle use. GASTROINTESTINAL: Abdomen soft, non-tender, nondistended. Lt nephrostomy tube with blood drainage. GUN:price cath in situ, hematuria noted. MUSCULOSKELETAL: No cyanosis, or edema. BACK: Nontender without obvious deformity. No CVA tenderness. Urinary Catheter Management Indwelling Urethral Catheter: Cath placed during this visit: no Results Labs CBC & Chem 7: 03/10/18 04:23 03/10/18 04:23 Labs: Microbiology 03/08/18 11:00 Blood - Peripheral Aerobic Blood Culture - Preliminary No growth in 1 day 03/08/18 11:00 Blood - Peripheral Anaerobic Blood Culture - Preliminary No growth in 1 day 03/08/18 10:54 Blood - Peripheral Aerobic Blood Culture - Preliminary No growth in 1 day 03/08/18 10:54 Blood - Peripheral Anaerobic Blood Culture - Preliminary No growth in 1 day Imaging Imaging: Impressions Nephrostomy 03/08/18 00:00 CONCLUSION: 1. Uncomplicated nephrostomy tube placement as above. CT scan will be repeated to evaluate the kidney following percutaneous drainage Abdomen/Pelvis CT 03/09/18 00:00 CONCLUSION: Small bilateral effusions and bibasilar atelectasis. Small amount of free fluid in the lower abdomen and in the pelvis. Left nephrostomy is present in a markedly abnormal enlarged left horseshoe kidney. The findings were discussed with Dr. Turpin at time of dictation. Assessment and Plan (1) Sepsis due to urinary tract infection: Code(s): A41.9 - Sepsis, unspecified organism; N39.0 - Urinary tract infection, site not specified Status: Acute Onset Date: ~03/07/18 (2) Hydronephrosis of left kidney: Code(s): N13.30 - Unspecified hydronephrosis Status: Chronic Onset Date: Unknown (3) Horseshoe kidney: Code(s): Q63.1 - Lobulated, fused and horseshoe kidney Status: Chronic Onset Date: Unknown Plan 37 y/o male with a history of asthma, and seizures(not on any medication) was a transfer from [facility] due, CT abdo/pelvis revealed a horse shoe kidney stone and hydronephrosis. 1.Sepsis likely due to infected renal stone had a low grade fever this am. -Leucocytosis trending down,28-->18,but no change today. lactate trending down 6.9-->0.5. -blood cultures negative to date -BP responded appropriately to fluids, he remains tachycardic. -continue IV fluids. -Continue IV Zosyn, added Vanc. 2.Acute kidney injury-due to obstructive uropathy- Cr 2.14 on admission now normalized after nephrostomy. avoid nephrotoxins, maintain strict i/o. continue to hydrate 3.Lt Hydronephrosis with possible hemorrhage due to Horse shoe kidney- appreciate urology recs, patient s/p nephrostomy. 4. Acute anemia due to blood loss-secondary to hematuria. s/p 2 prbc transfusion Hb has stabilized in the 8's range. Monitor H/h q6h, transfuse if Hb<7. 5. HTN- patient reports h/o hypertension, he has not been on any medication. keep on cardiac diet. BP in 130-150's range in last 24 hrs, monitor for now given sepsis. DVT prophylaxis: SCDs, no heparin given hematuria. Progress Note: Quality VTE Deep Vein Thrombosis/Pulmonary Embolism Present on Admission: No
[2018-03-10] MEDS: Senna/Docusate Sodium 8.6/50 MG Tablet PO SCH ×2 (09:21→20:57)
[2018-03-10] MEDS: Vancomycin Inj 1,000 MG in Sodium Chlor 0.9% Inj 250 ML IV.SIG SCH ×2 (09:51→20:57)
[2018-03-10 11:04] LABS: Hemoglobin 8.9 gm/dL (13.0-17.0)
[2018-03-10] MEDS: Morphine Inj 4 MG/ML Vial IV.PUSH PRN ×2 (12:46→18:46)
[2018-03-10] MEDS ORDERED: Morphine Inj 4 MG/ML Vial IV.PUSH ONE (13:30)
--- NOTE | 2018-03-10 16:21 | P.PNURO ---
Subjective Patient symptoms today: SP pains assoc. with increase in both pulse and BP. Int. Rad. flushed the nephrostomy tube. It has been draining small volumes of bloody urine. Objective Vital Signs: Vital Signs 03/09/18 16:35 03/09/18 16:42 03/09/18 18:50 Temperature Pulse Rate 115 H 117 H Respiratory Rate 22 Blood Pressure Pulse Oximetry 03/09/18 20:00 03/09/18 20:25 03/09/18 21:00 Temperature 99.2 F Pulse Rate 124 H 120 H Respiratory Rate 20 22 24 Blood Pressure 131/90 146/89 H Pulse Oximetry 95 98 03/09/18 21:25 03/09/18 22:00 03/09/18 22:17 Temperature Pulse Rate 117 H 130 H 127 H Respiratory Rate 26 H Blood Pressure 147/96 H Pulse Oximetry 98 03/09/18 23:00 03/10/18 00:00 03/10/18 00:35 Temperature 99.1 F Pulse Rate 118 H 120 H 114 H Respiratory Rate 18 22 Blood Pressure 141/83 H 157/82 H Pulse Oximetry 98 98 03/10/18 01:00 03/10/18 02:00 03/10/18 02:12 Temperature Pulse Rate 111 H 110 H 105 H Respiratory Rate 27 H 21 Blood Pressure 137/87 147/88 H Pulse Oximetry 98 99 03/10/18 03:00 03/10/18 04:00 03/10/18 04:06 Temperature 100.2 F H Pulse Rate 119 H 110 H 110 H Respiratory Rate 26 H 19 Blood Pressure 155/93 H 136/85 Pulse Oximetry 99 98 03/10/18 06:08 Temperature Pulse Rate 124 H Respiratory Rate Blood Pressure Pulse Oximetry Intake & Output 03/09/18 03/10/18 03/10/18 18:59 06:59 18:59 Intake Total 990 / 990 1100 / 1100 Output Total 1950 / 1950 1520 / 1520 Balance -960 / -960 -420 / -420 Weight 59.7 kg Intake: IV 350 / 350 1100 / 1100 NS Inj 1,000 ML @ 100 mls/hr IV 1000 / 1000 .CONT .Q10H [facility] Rx#:[id number] Zosyn 3.375 GM Premix 3.375 gm 100 / 100 100 / 100 In 50 ml @ 100 mls/hr IV.SIG Q6H [facility] Rx#:[id number] NS Inj 250 ML @ 15 mls/hr IV. 250 / 250 SIG ONCE [facility] Rx#:[id number] Oral 640 / 640 Output: Urine 350 / 350 Urine Amount (Catheter) 1300 / 1300 1050 / 1050 Indwelling Urethral Catheter 1300 / 1300 1050 / 1050 Urine Amount (Stoma) 300 / 300 470 / 470 Nephrostomy Tube Left 300 / 300 470 / 470 Other: Date of Last Bowel Movement 03/07/18 03/10/18 Result Diagrams: 03/10/18 10:50 03/10/18 04:23 Medications and IVs: Active Medications Generic Name Dose Route Start Last Admin Trade Name Freq PRN Reason Stop Dose Admin Acetaminophen 650 mg 03/07/18 23:05 03/08/18 18:24 Tylenol PO 650 mg Q4H PRN Administration Temp > 100.4 Al Hydroxide/Mg Hydroxide 30 ml 03/09/18 14:24 03/09/18 18:04 Milk Of Magnesia Liq PO 30 ml Q12H PRN Administration Moderate Constipation Belladonna Alkaloids/Opium 60 mg 03/10/18 15:43 B & O Supp RECTAL Q6HR PRN BLADDER SPASM Sodium Chloride 1,000 mls @ 100 mls/hr 03/08/18 00:40 03/10/18 12:49 Ns Inj IV.CONT Not Given .Q10H [facility] Piperacillin/Tazobactam/Dextrose 3.375 gm in 50 mls @ 100 mls/hr 03/08/18 10: 00 03/10/18 09:51 Zosyn 3.375 Gm Premix IV.SIG 100 mls/hr Q6H [facility] Administration Vancomycin HCl 1,000 mg/ 250 mls @ 250 mls/hr 03/10/18 09:00 03/10/18 09:51 Sodium Chloride IV.SIG 250 mls/hr Q12H [facility] Administration Morphine Sulfate 4 mg 03/10/18 15:48 Morphine Inj IV.PUSH Q4H PRN pain 1 to 10 Ondansetron HCl 4 mg 03/07/18 23:05 03/08/18 01:03 Zofran Inj IV.PUSH 4 mg Q6H PRN Administration NAUSEA OR VOMITING Polyethylene Glycol 17 gm 03/09/18 14:24 03/09/18 21:14 Miralax PO 17 gm DAILY PRN Administration Moderate-severe constipation Senna/Docusate Sodium 1 tab 03/09/18 21:00 03/10/18 09:21 Allyssa-Colace PO Not Given BID [facility] Sodium Chloride 2 ml 03/08/18 09:00 03/10/18 09:50 Ns Flush IV.FLUSH 2 ml BID [facility] Administration Sodium Chloride 2 ml 03/07/18 23:05 Ns Flush IV.FLUSH PRN PRN FLUSH AFTER USING IV ACCESS Objective Remarks: CV: sinus tach Abd:soft, mild distension; no rebound Price: old dark blood Ext: neg C/C/E 03/10 CV: sinus tach Abd:soft,less tenderness and distension Price: blood tinged PCNT: bloody 03/10 16:00: SP pains. Bladder not palpable. No SP tenderness. Abd: now non tender LLQ. Bloody urine via nephrostomy, no clots. Bloody urine via price catheter, no clots. 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 Back up plan is to try to place a urinary stent cystoscopically in the OR. However, there is a great possibility that the presumed UPJ stenosis will prevent passage of guide wires and stent. 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 Discussed with Dr. Little. Discussed Condition With: Patient, mother, nurse Naomi, Dr. Little, Dr. Burak Turpin
[2018-03-10 17:49] LABS: Hematocrit 22.3 % (39.0-51.0); Hemoglobin 7.6 gm/dL (13.0-17.0)
[2018-03-10] MEDS ORDERED: hydrALAZINE 50 MG Tablet PO SCH (20:00)
[2018-03-10] MEDS: hydrALAZINE 50 MG Tablet PO SCH (20:56)
[2018-03-11 00:27] LABS: Hematocrit 19.5 % (39.0-51.0); Hemoglobin 6.8 gm/dL (13.0-17.0)
[2018-03-11] MEDS ORDERED: Sodium Chlor 0.9% Inj 250 ML IV.SIG SCH (01:00)
[2018-03-11] MEDS: Sod Chloride 0.9% Inj 1,000 ML IV.CONT SCH ×2 (01:35→13:29)
[2018-03-11] MEDS: Morphine Inj 4 MG/ML Vial IV.PUSH PRN ×3 (01:35→20:33)
[2018-03-11] MEDS: Piperacil/Tazo 3.375 GM Premix 3.375 GM/50 ML PIGGYBACK IV.SIG SCH ×4 (04:11→23:09)
[2018-03-11 05:18] LABS: Baso % (Auto) 0.3 % (0.0-2.0); Eos % (Auto) 0.1 % (0.0-4.0); Hematocrit 28.2 % (39.0-51.0); Lymph # (Auto) 1.4 th/mm3 (1.0-4.8); Lymph % (Auto) 10.3 % (9.0-44.0); Mean Corpuscular HGB Conc 35.4 % (32.0-36.0); Mean Corpuscular Hemoglobin 29.9 pg (27.0-34.0); Mean Corpuscular Volume 84.4 fL (80.0-100.0); Mean Platelet Volume 9.3 fL (7.0-11.0); Mono # (Auto) 1.5 th/mm3 (0.0-0.9); Mono % (Auto) 11.7 % (0.0-8.0); Neut # (Auto) 10.2 th/mm3 (1.8-7.7); Neut % (Auto) 77.6 % (16.0-70.0); Platelet Count 131 th/mm3 (150-450); Red Blood Count 3.34 mil/mm3 (4.50-5.90); Red Cell Distribution Width 15.1 % (11.6-17.2); White Blood Count 13.1 th/mm3 (4.0-11.0)
[2018-03-11 05:32] LABS: Anion Gap 7 meq/L (5-15); Blood Urea Nitrogen 9 mg/dL (7-18); Calcium 7.8 mg/dL (8.5-10.1); Carbon Dioxide 23.9 meq/L (21.0-32.0); Chloride 110 meq/L (98-107); Glomerular Filtration Rate Greater Than 89 mL/min (>89); Glucose,Random 107 mg/dL (74-106); Potassium 3.9 meq/L (3.5-5.1); Sodium 141 meq/L (136-145)
--- NOTE | 2018-03-11 08:53 | P.PNIM ---
Subjective Interval history: not in pain today. had some loose bowel motion yesterday. Overnight events-H/h dropped and he required 2prbc units transfusion. Physical Exam Vital signs: Vital Signs 03/10/18 19:20 03/10/18 20:00 03/10/18 22:00 Temperature Pulse Rate 118 H 114 H Respiratory Rate 27 H Blood Pressure Pulse Oximetry 03/11/18 00:00 03/11/18 01:29 03/11/18 01:37 Temperature 98.8 F Pulse Rate 125 H 117 H Respiratory Rate 12 21 20 Blood Pressure 135/90 Pulse Oximetry 100 03/11/18 01:45 03/11/18 02:00 03/11/18 02:10 Temperature 99.5 F 98.3 F Pulse Rate 126 H 113 H 112 H Respiratory Rate 24 20 Blood Pressure 139/90 148/90 H Pulse Oximetry 100 100 03/11/18 02:24 03/11/18 02:36 03/11/18 04:00 Temperature 98.8 F 99.3 F Pulse Rate 115 H 114 H 115 H Respiratory Rate 23 20 12 Blood Pressure 144/97 H 140/94 H Pulse Oximetry 100 100 03/11/18 06:00 03/11/18 07:00 03/11/18 07:52 Temperature Pulse Rate 110 H 107 H Respiratory Rate 19 Blood Pressure 150/90 H 149/93 H Pulse Oximetry 99 03/11/18 08:00 03/11/18 08:22 Temperature 99.4 F Pulse Rate 110 H 125 H Respiratory Rate 21 24 Blood Pressure 149/93 H 147/93 H Pulse Oximetry 98 96 Intake & Output 03/10/18 03/11/18 03/11/18 18:59 06:59 18:59 Intake Total 1830 / 1830 1495 / 1495 Output Total 1650 / 1650 900 / 900 Balance 180 / 180 595 / 595 Weight 61.1 kg Intake: IV 1350 / 1350 350 / 350 NS Inj 1,000 ML @ 100 mls/hr IV 1000 / 1000 .CONT .Q10H [facility] Rx#:[id number] Zosyn 3.375 GM Premix 3.375 gm 100 / 100 100 / 100 In 50 ml @ 100 mls/hr IV.SIG Q6H [facility] Rx#:[id number] Vancomycin Inj 1,000 MG In NS 250 / 250 250 / 250 Inj 250 ML @ 250 mls/hr IV.SIG Q12H [facility] Rx#:[id number] Oral 480 / 480 265 / 265 Other 80 / 80 Rbc As-3 Leukoreduced Unit 30 / 30 [id number] Rbc As-3 Leukoreduced Unit 50 / 50 [id number] Intake (Blood Product) Amt 800 / 800 Rbc As-3 Leukoreduced Unit 400 / 400 [id number] Rbc As-3 Leukoreduced Unit 400 / 400 [id number] Output: Urine Amount (Catheter) 1300 / 1300 850 / 850 Indwelling Urethral Catheter 1300 / 1300 850 / 850 Urine Amount (Stoma) 350 / 350 50 / 50 Nephrostomy Tube Left 350 / 350 50 / 50 Other: Other Intake Source Rbc As-3 Leukoreduced Unit Saline Solution [id number] Rbc As-3 Leukoreduced Unit Saline Solution [id number] Date of Last Bowel Movement 03/10/18 03/10/18 # Bowel Movements 7 Narrative: GENERAL: Thin patient in no distress SKIN: Warm and dry. EYES: No scleral icterus. No injection or drainage. NECK: Supple, trachea midline. No JVD or lymphadenopathy. CARDIOVASCULAR: Tachycardia. RESPIRATORY: Breath sounds equal bilaterally. No accessory muscle use. GASTROINTESTINAL: Abdomen soft, non-tender, nondistended. Lt nephrostomy tube with no drainage. GUN:price cath in situ, urine clearing. MUSCULOSKELETAL: No cyanosis, or edema. BACK: Nontender without obvious deformity. No CVA tenderness. Urinary Catheter Management Indwelling Urethral Catheter: Cath placed during this visit: no Results Labs CBC & Chem 7: 03/11/18 04:53 03/11/18 04:53 Labs: Microbiology 03/08/18 11:00 Blood - Peripheral Aerobic Blood Culture - Preliminary No growth in 2 days 03/08/18 11:00 Blood - Peripheral Anaerobic Blood Culture - Preliminary No growth in 2 days 03/08/18 10:54 Blood - Peripheral Aerobic Blood Culture - Preliminary No growth in 2 days 03/08/18 10:54 Blood - Peripheral Anaerobic Blood Culture - Preliminary No growth in 2 days Assessment and Plan (1) Sepsis due to urinary tract infection: Code(s): A41.9 - Sepsis, unspecified organism; N39.0 - Urinary tract infection, site not specified Status: Acute Onset Date: ~03/07/18 (2) Hydronephrosis of left kidney: Code(s): N13.30 - Unspecified hydronephrosis Status: Chronic Onset Date: Unknown (3) Horseshoe kidney: Code(s): Q63.1 - Lobulated, fused and horseshoe kidney Status: Chronic Onset Date: Unknown (4) Painful bladder spasm: Code(s): R30.1 - Vesical tenesmus Status: Acute Onset Date: ~03/10/18 Plan 37 y/o male with a history of asthma, and seizures(not on any medication) was a transfer from [facility] due, CT abdo/pelvis revealed a horse shoe kidney stone and hydronephrosis. 1.Sepsis likely due to infected renal stone. -Leucocytosis trending down,28-->13 lactate normalized. -blood cultures negative to date -BP responded appropriately to fluids, he remains tachycardic. -continue IV fluids. -Continue IV Zosyn/Vanc. 2.Acute kidney injury-due to obstructive uropathy-resolved. Cr 2.14 on admission now normalized after nephrostomy. avoid nephrotoxins, maintain strict i/o. continue to hydrate 3.Lt Hydronephrosis with possible hemorrhage due to Horse shoe kidney- appreciate urology recs, patient s/p nephrostomy- tube not draining today,was flashed overnight. instructed nurse to contact IR for further instruction 4. Acute anemia due to blood loss-secondary to hematuria. s/p prbc transfusion,total 4 units this admission so far including last night 03/10. Hb 10 today Monitor H/h q6h, transfuse if Hb<7. 5. HTN- patient reports h/o hypertension, he has not been on any medication. keep on cardiac diet. started on low dose Hydralazine, will add Metoprolol as well. DVT prophylaxis: SCDs, no heparin given hematuria. Discharge Planning: Plan to DC home when clinically improved. Pending urology consult Progress Note: Quality VTE Deep Vein Thrombosis/Pulmonary Embolism Present on Admission: No
[2018-03-11] MEDS: Vancomycin Inj 1,000 MG in Sodium Chlor 0.9% Inj 250 ML IV.SIG SCH ×2 (09:22→20:26)
[2018-03-11] MEDS: hydrALAZINE 50 MG Tablet PO SCH ×3 (09:27→18:12)
[2018-03-11] MEDS: Senna/Docusate Sodium 8.6/50 MG Tablet PO SCH ×2 (09:28→23:09)
[2018-03-11] MEDS: Metoprolol Tartrate 25 MG Tablet PO SCH ×2 (09:31→20:24)
[2018-03-11] MEDS: Acetaminophen 325 MG Tablet PO PRN (12:26)
--- NOTE | 2018-03-11 12:54 | P.PNURO ---
Subjective Patient symptoms today: Bladder pains continue. Receiving Morphine. Had BM. More blood transfusions ordered for today. Dr. Arciniega, Int. Radiology, irrigated the nephrostomy tube this AM. Objective Vital Signs: Vital Signs 03/10/18 19:20 03/10/18 20:00 03/10/18 22:00 Temperature Pulse Rate 118 H 114 H Respiratory Rate 27 H Blood Pressure Pulse Oximetry 03/11/18 00:00 03/11/18 01:29 03/11/18 01:37 Temperature 98.8 F Pulse Rate 125 H 117 H Respiratory Rate 12 21 20 Blood Pressure 135/90 Pulse Oximetry 100 03/11/18 01:45 03/11/18 02:00 03/11/18 02:10 Temperature 99.5 F 98.3 F Pulse Rate 126 H 113 H 112 H Respiratory Rate 24 20 Blood Pressure 139/90 148/90 H Pulse Oximetry 100 100 03/11/18 02:24 03/11/18 02:36 03/11/18 04:00 Temperature 98.8 F 99.3 F Pulse Rate 115 H 114 H 115 H Respiratory Rate 23 20 12 Blood Pressure 144/97 H 140/94 H Pulse Oximetry 100 100 03/11/18 06:00 03/11/18 07:00 03/11/18 07:52 Temperature Pulse Rate 110 H 107 H Respiratory Rate 19 Blood Pressure 150/90 H 149/93 H Pulse Oximetry 99 03/11/18 08:00 03/11/18 08:22 03/11/18 09:00 Temperature 99.4 F Pulse Rate 112 H 125 H 115 H Respiratory Rate 21 24 20 Blood Pressure 149/93 H 147/93 H 155/93 H Pulse Oximetry 98 96 100 03/11/18 09:22 03/11/18 09:52 03/11/18 10:00 Temperature Pulse Rate 114 H Respiratory Rate 23 Blood Pressure 149/89 H 141/95 H 141/95 H Pulse Oximetry 100 03/11/18 10:33 03/11/18 11:00 03/11/18 11:07 Temperature Pulse Rate 114 H Respiratory Rate 17 24 Blood Pressure 169/110 H 159/95 H Pulse Oximetry 98 03/11/18 11:22 03/11/18 12:00 Temperature 98.8 F Pulse Rate 112 H 115 H Respiratory Rate 23 20 Blood Pressure 150/96 H 164/107 H Pulse Oximetry 98 99 Intake & Output 03/10/18 03/11/18 03/11/18 18:59 06:59 18:59 Intake Total 1830 / 1830 1495 / 1495 420 / 420 Output Total 1650 / 1650 900 / 900 Balance 180 / 180 595 / 595 420 / 420 Weight 61.1 kg Intake: IV 1350 / 1350 350 / 350 300 / 300 NS Inj 1,000 ML @ 100 mls/hr IV 1000 / 1000 .CONT .Q10H [facility] Rx#:[id number] Zosyn 3.375 GM Premix 3.375 gm 100 / 100 100 / 100 50 / 50 In 50 ml @ 100 mls/hr IV.SIG Q6H [facility] Rx#:[id number] Vancomycin Inj 1,000 MG In NS 250 / 250 250 / 250 250 / 250 Inj 250 ML @ 250 mls/hr IV.SIG Q12H [facility] Rx#:[id number] Oral 480 / 480 265 / 265 120 / 120 Other 80 / 80 Rbc As-3 Leukoreduced Unit 30 / 30 [id number] Rbc As-3 Leukoreduced Unit 50 / 50 [id number] Intake (Blood Product) Amt 800 / 800 Rbc As-3 Leukoreduced Unit 400 / 400 [id number] Rbc As-3 Leukoreduced Unit 400 / 400 [id number] Output: Urine Amount (Catheter) 1300 / 1300 850 / 850 Indwelling Urethral Catheter 1300 / 1300 850 / 850 Urine Amount (Stoma) 350 / 350 50 / 50 Nephrostomy Tube Left 350 / 350 50 / 50 Other: Other Intake Source Rbc As-3 Leukoreduced Unit Saline Solution [id number] Rbc As-3 Leukoreduced Unit Saline Solution [id number] Date of Last Bowel Movement 03/10/18 03/10/18 03/10/18 # Bowel Movements 7 Result Diagrams: 03/11/18 04:53 03/11/18 04:53 Medications and IVs: Active Medications Generic Name Dose Route Start Last Admin Trade Name Freq PRN Reason Stop Dose Admin Acetaminophen 650 mg 03/07/18 23:05 03/11/18 12:26 Tylenol PO 650 mg Q4H PRN Administration Temp > 100.4 Al Hydroxide/Mg Hydroxide 30 ml 03/09/18 14:24 03/09/18 18:04 Milk Of Magnesia Liq PO 30 ml Q12H PRN Administration Moderate Constipation Belladonna Alkaloids/Opium 60 mg 03/10/18 15:43 B & O Supp RECTAL Q6HR PRN BLADDER SPASM Hydralazine HCl 50 mg 03/11/18 12:20 03/11/18 12:26 Apresoline PO 50 mg TID [facility] Administration Sodium Chloride 1,000 mls @ 100 mls/hr 03/08/18 00:40 03/11/18 01:35 Ns Inj IV.CONT 150 mls/hr .Q10H [facility] Administration Piperacillin/Tazobactam/Dextrose 3.375 gm in 50 mls @ 100 mls/hr 03/08/18 10: 00 03/11/18 12:19 Zosyn 3.375 Gm Premix IV.SIG Infused Q6H [facility] Infusion Vancomycin HCl 1,000 mg/ 250 mls @ 250 mls/hr 03/10/18 09:00 03/11/18 10:32 Sodium Chloride IV.SIG Infused Q12H [facility] Infusion Sodium Chloride 250 mls @ 15 mls/hr 03/11/18 01:00 03/11/18 01:36 Ns Inj IV.SIG 03/11/18 17:39 15 mls/hr ONCE [facility] Administration Metoprolol Tartrate 12.5 mg 03/11/18 09:00 03/11/18 09:31 Lopressor PO 12.5 mg BID [facility] Administration Miscellaneous 1 each 03/11/18 10:00 Pill Splitter OTHER UNSCH [facility] Morphine Sulfate 4 mg 03/10/18 15:48 03/11/18 09:58 Morphine Inj IV.PUSH 4 mg Q4H PRN Administration pain 1 to 10 Ondansetron HCl 4 mg 03/07/18 23:05 03/08/18 01:03 Zofran Inj IV.PUSH 4 mg Q6H PRN Administration NAUSEA OR VOMITING Polyethylene Glycol 17 gm 03/09/18 14:24 03/09/18 21:14 Miralax PO 17 gm DAILY PRN Administration Moderate-severe constipation Senna/Docusate Sodium 1 tab 03/09/18 21:00 03/11/18 09:28 Allyssa-Colace PO Not Given BID [facility] Sodium Chloride 2 ml 03/08/18 09:00 03/11/18 09:28 Ns Flush IV.FLUSH 2 ml BID [facility] Administration Sodium Chloride 2 ml 03/07/18 23:05 Ns Flush IV.FLUSH PRN PRN FLUSH AFTER USING IV ACCESS Objective Remarks: CV: sinus tach Abd:soft, mild distension; no rebound Price: old dark blood Ext: neg C/C/E 03/10 CV: sinus tach Abd:soft,less tenderness and distension Price: blood tinged PCNT: bloody 03/10 16:00: SP pains. Bladder not palpable. No SP tenderness. Abd: now non tender LLQ. Bloody urine via nephrostomy, no clots. Bloody urine via price catheter, no clots. 03/11: Scant urine output via Nephrostomy tube. It may not be draining, will wait and see. Fairly good urine output via price catheter. Urine dark blood tinged, no clots. BP varies high to normal, Pulse varies, temp 99. 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 Back up plan is to try to place a urinary stent cystoscopically in the OR. However, there is a great possibility that the presumed UPJ stenosis will prevent passage of guide wires and stent. 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 Discussed with Dr. Little. 03/11: N tube may or may not be draining. Sepsis improving. Still having bladder spasms, receiving Morphine. PLAN: Continue same. Discussed Condition With: Patient, nurse Beverly.
[2018-03-12] MEDS: Sod Chloride 0.9% Inj 1,000 ML IV.CONT SCH (01:36)
[2018-03-12] MEDS: Piperacil/Tazo 3.375 GM Premix 3.375 GM/50 ML PIGGYBACK IV.SIG SCH ×3 (04:49→16:14)
[2018-03-12 05:28] LABS: Baso % (Auto) 0.2 % (0.0-2.0); Eos % (Auto) 0.2 % (0.0-4.0); Hematocrit 26.2 % (39.0-51.0); Lymph # (Auto) 0.8 th/mm3 (1.0-4.8); Lymph % (Auto) 6.8 % (9.0-44.0); Mean Corpuscular HGB Conc 34.6 % (32.0-36.0); Mean Corpuscular Hemoglobin 29.1 pg (27.0-34.0); Mean Corpuscular Volume 84.2 fL (80.0-100.0); Mean Platelet Volume 8.7 fL (7.0-11.0); Mono # (Auto) 1.4 th/mm3 (0.0-0.9); Mono % (Auto) 11.4 % (0.0-8.0); Neut # (Auto) 9.8 th/mm3 (1.8-7.7); Neut % (Auto) 81.4 % (16.0-70.0); Platelet Count 194 th/mm3 (150-450); Red Blood Count 3.11 mil/mm3 (4.50-5.90); Red Cell Distribution Width 15.9 % (11.6-17.2); White Blood Count 12.1 th/mm3 (4.0-11.0)
[2018-03-12 05:52] LABS: Calcium 7.9 mg/dL (8.5-10.1); Carbon Dioxide 22.9 meq/L (21.0-32.0); Potassium 3.2 meq/L (3.5-5.1)
[2018-03-12] MEDS: KCL 20 mEq/D5W/LR Inj 1,000 ML IV.SIG SCH ×2 (09:00→17:41)
[2018-03-12] MEDS: hydrALAZINE 50 MG Tablet PO SCH ×3 (09:07→17:41)
[2018-03-12] MEDS: Metoprolol Tartrate 25 MG Tablet PO SCH ×2 (09:07→21:46)
[2018-03-12] MEDS: Senna/Docusate Sodium 8.6/50 MG Tablet PO SCH ×2 (10:15→21:46)
--- NOTE | 2018-03-12 10:20 | P.PNIM ---
Subjective Interval history: feels weak. having difficulty swallowing solids, also had some vomiting yesterday. Not in pain presently. no other complaints. Physical Exam Vital signs: Vital Signs 03/11/18 10:33 03/11/18 11:00 03/11/18 11:07 Temperature Pulse Rate 114 H Respiratory Rate 17 24 Blood Pressure 169/110 H 159/95 H Pulse Oximetry 98 03/11/18 11:22 03/11/18 12:00 03/11/18 12:07 Temperature 98.8 F Pulse Rate 112 H 115 H 111 H Respiratory Rate 23 20 19 Blood Pressure 150/96 H 164/107 H Pulse Oximetry 98 99 99 03/11/18 13:00 03/11/18 14:00 03/11/18 15:00 Temperature Pulse Rate 128 H 129 H 127 H Respiratory Rate 22 20 23 Blood Pressure 147/95 H 133/90 128/78 Pulse Oximetry 100 97 97 03/11/18 15:31 03/11/18 16:00 03/11/18 16:31 Temperature 99.3 F Pulse Rate 124 H Respiratory Rate 19 Blood Pressure 118/78 123/76 122/79 Pulse Oximetry 97 03/11/18 17:00 03/11/18 17:31 03/11/18 18:00 Temperature Pulse Rate 117 H 118 H 120 H Respiratory Rate 21 19 20 Blood Pressure 123/72 121/73 119/72 Pulse Oximetry 98 98 98 03/11/18 19:00 03/11/18 19:31 03/11/18 20:00 Temperature 98.7 F Pulse Rate 126 H 134 H 139 H Respiratory Rate 18 17 18 Blood Pressure 113/57 L 107/55 L Pulse Oximetry 97 97 97 03/11/18 21:00 03/11/18 21:08 03/11/18 21:31 Temperature Pulse Rate 132 H 124 H Respiratory Rate 19 17 22 Blood Pressure 111/67 110/66 Pulse Oximetry 97 97 03/11/18 22:00 03/11/18 23:00 03/12/18 00:00 Temperature 98.8 F Pulse Rate 120 H 116 H 121 H Respiratory Rate 19 20 23 Blood Pressure 114/70 106/72 113/63 Pulse Oximetry 97 98 97 03/12/18 01:00 03/12/18 01:31 03/12/18 02:00 Temperature Pulse Rate 121 H 120 H Respiratory Rate 18 19 Blood Pressure 110/67 109/64 114/69 Pulse Oximetry 98 97 03/12/18 02:01 03/12/18 03:00 03/12/18 04:00 Temperature 98.9 F Pulse Rate 121 H 120 H 117 H Respiratory Rate 18 19 20 Blood Pressure 125/72 113/71 Pulse Oximetry 98 98 98 03/12/18 05:00 03/12/18 05:06 03/12/18 06:00 Temperature Pulse Rate 127 H 131 H 113 H Respiratory Rate 24 21 20 Blood Pressure 127/74 110/69 Pulse Oximetry 98 Intake & Output 03/11/18 03/12/18 03/12/18 18:59 06:59 18:59 Intake Total 1530 / 1530 1410 / 1410 Output Total 865 / 865 320 / 320 Balance 665 / 665 1090 / 1090 Weight 63.3 kg Intake: IV 1350 / 1350 1350 / 1350 NS Inj 1,000 ML @ 100 mls/hr IV 1000 / 1000 1000 / 1000 .CONT .Q10H [facility] Rx#:[id number] Zosyn 3.375 GM Premix 3.375 gm 100 / 100 100 / 100 In 50 ml @ 100 mls/hr IV.SIG Q6H [facility] Rx#:[id number] Vancomycin Inj 1,000 MG In NS 250 / 250 250 / 250 Inj 250 ML @ 250 mls/hr IV.SIG Q12H [facility] Rx#:[id number] Oral 180 / 180 60 / 60 Output: Stool 75 / 75 Emesis 50 / 50 Urine Amount (Catheter) 740 / 740 250 / 250 Indwelling Urethral Catheter 740 / 740 250 / 250 Urine Amount (Stoma) 0 / 0 70 / 70 Nephrostomy Tube Left 0 / 0 70 / 70 Other: Date of Last Bowel Movement 03/11/18 03/11/18 # Bowel Movements 1 2 Narrative: GENERAL: Thin patient in no distress SKIN: Warm and dry. EYES: No scleral icterus. No injection or drainage. NECK: Supple, trachea midline. No JVD or lymphadenopathy. CARDIOVASCULAR: Tachycardia. RESPIRATORY: Breath sounds equal bilaterally. No accessory muscle use. GASTROINTESTINAL: Abdomen soft, non-tender, nondistended. Lt nephrostomy tube with bloody drainage. GUN:price cath in situ, blood stained urine MUSCULOSKELETAL: No cyanosis, or edema. BACK: Nontender without obvious deformity. No CVA tenderness. Urinary Catheter Management Indwelling Urethral Catheter: Cath placed during this visit: yes Reason for continuing: Other continuation reason Insertion date: 03/09/18 Results Labs CBC & Chem 7: 03/12/18 17:08 03/12/18 17:03 Labs: Microbiology 03/08/18 11:00 Blood - Peripheral Aerobic Blood Culture - Preliminary No growth in 3 days 03/08/18 11:00 Blood - Peripheral Anaerobic Blood Culture - Preliminary No growth in 3 days 03/08/18 10:54 Blood - Peripheral Aerobic Blood Culture - Preliminary No growth in 3 days 03/08/18 10:54 Blood - Peripheral Anaerobic Blood Culture - Preliminary No growth in 3 days Assessment and Plan (1) Sepsis due to urinary tract infection: Code(s): A41.9 - Sepsis, unspecified organism; N39.0 - Urinary tract infection, site not specified Status: Acute Onset Date: ~03/07/18 (2) Hydronephrosis of left kidney: Code(s): N13.30 - Unspecified hydronephrosis Status: Chronic Onset Date: Unknown (3) 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 1.Sepsis likely due to infected renal stone. -Leucocytosis trending down,28-->12 lactate normalized. -blood cultures negative to date -BP responded appropriately to fluids, he remains tachycardic. -continue IV fluids. -Continue IV Zosyn, adjust dose to gfr hold Vanc for now in light of [place] 2.Acute kidney injury-due to obstructive uropathy- Cr 2.14 on admission normalized after nephrostomy. Now recurred, Cr 1.75 today( 2/3)-multifactorial likely, pre renal(patient had loose bowel motions) and vanc toxicity, check vanc level. keep on IV fluids.repeat labs pm. avoid nephrotoxins, dose meds to gfr. maintain strict i/o. continue to hydrate repeat labs this pm with worsening cr obtain renal u/s nephrology consult to assist with mx. 3.Lt Hydronephrosis with possible hemorrhage due to Horse shoe kidney- appreciate urology recs, patient s/p nephrostomy- tube not draining today,was flashed overnight. instructed nurse to contact IR for further instruction 4. Acute anemia due to blood loss-secondary to hematuria. s/p prbc transfusion,total 4 units this admission so far including last night 03/10. Hb 9 today Monitor H/h q6h, transfuse if Hb<7. 5. HTN- patient reports h/o hypertension, he has not been on any medication. keep on cardiac diet. started on low dose Hydralazine, Metoprolol as well. BP trends much improved. 6.Dysphagia-consulted speech 7. Protein calorie malnutrion, moderate, albumin 2.6-2.7 range. nutrition consult. Hypokalemia-replete. DVT prophylaxis: SCDs, no heparin given hematuria. Discharge Planning: Plan to DC home when clinically improved. Progress Note: Quality VTE Deep Vein Thrombosis/Pulmonary Embolism Present on Admission: No
--- NOTE | 2018-03-12 15:13 | P.DIET ---
Nutritional Evaluation Type of nutrition evaluation: initial (Patient transferred from [facility]) Nutrition consult regarding: Diet Evaluation Nutrition screening: [facility] Screening comments: 2/3 [facility] Malnutrition/diet evaluation Subjective Barriers to Nutrition: Swallowing problem Oral Diet Tolerance Assessment Indicates: Poor intake due to pain Objective - Diagnosis Abdominal pain, hydronephrosis - Objective % IBW: 81 (IBW:166lbs) Body Weight Used for Calculations: Actual (59.3kg) Energy Needs - Lower Range (kCal/kg): 30 Energy Needs - Upper Range (kCal/kg): 35 Lower Limit kCal/kg (kCals): 1,779 Upper Limit kCal/kg (kCals): 2,076 Lower Limit Protein Factor (Grams per Kg): 1.2 Upper Limit Protein Factor (Grams per Kg): 1.5 Lower Protein Needs (Protein): 71 Upper Protein Needs (Protein): 90 Dietitian Reviewed in Medical Record: Current diet, Curent medications, Intake & Output, Labs, Medical history Diet Order: Cardiac Objective Comments: PMH: asthma, seizures Labs include: Cr 1.75, Albumin 2.6, K+ 3.2 Assessment Assessment: Pt at nutritional risk r/t current clinical status. Pt admitted with abdominal pain, hydronephrosis of L kidney. Pt c/o problems swallowing, noted speech consult pending. Pt's nutritional needs as assessed above. Pt is underweight at 81% of his ideal body weight. Noted concern for low alb, however, albumin is no longer an indicator of nutritional status and is a negative-acute phase reactant relative to the presence of inflammation in the body. Pt's current PO intake is poor per nursing. Pt is receiving Mighty Shakes TID, each contains 300kcals and 9gms protein. Will await speech evaluation and monitor po intake. Will make additional recommendations relative to clinical course Recommendations: Cardiac diet with mighty shakes tid Swallow evaluation pending Will monitor clinical course. Dietitian to Monitor: Lab values, Supplement acceptance, Diet tolerance, Weight change, PO Intake, Swallow recommendations
--- NOTE | 2018-03-12 16:31 | P.PNURO ---
Subjective Patient symptoms today: 03/12: Difficulty swallowing. On soft diet with no teeth, but nurse reports not eating much food. Nephrostomy tube draining dark, burgundy bloody urine. Price catheter draining light pink tinged urine, but very little volume out. Nurse irrigated the price and the all of the irrigation fluid was returned. No clots. Minimal bladder discomfort. Not requesting B&O suppositories. Hgb: 9. Renal function was normal yesterday but has deteriorated overnight: 14, 1.5, 44. Suspect Vancomycin effect: Trough 29, Normal 5-10. Vancomycin on hold per Dr. Little. Hgb, BMP scheduled for this evening. Objective Vital Signs: Vital Signs 03/11/18 16:31 03/11/18 17:00 03/11/18 17:31 Temperature Pulse Rate 117 H 118 H Respiratory Rate 21 19 Blood Pressure 122/79 123/72 121/73 Pulse Oximetry 98 98 03/11/18 18:00 03/11/18 19:00 03/11/18 19:31 Temperature Pulse Rate 120 H 126 H 134 H Respiratory Rate 20 18 17 Blood Pressure 119/72 113/57 L Pulse Oximetry 98 97 97 03/11/18 20:00 03/11/18 21:00 03/11/18 21:08 Temperature 98.7 F Pulse Rate 139 H 132 H Respiratory Rate 18 19 17 Blood Pressure 107/55 L 111/67 Pulse Oximetry 97 97 03/11/18 21:31 03/11/18 22:00 03/11/18 23:00 Temperature Pulse Rate 124 H 120 H 116 H Respiratory Rate 22 19 20 Blood Pressure 110/66 114/70 106/72 Pulse Oximetry 97 97 98 03/12/18 00:00 03/12/18 01:00 03/12/18 01:31 Temperature 98.8 F Pulse Rate 121 H 121 H Respiratory Rate 23 18 Blood Pressure 113/63 110/67 109/64 Pulse Oximetry 97 98 03/12/18 02:00 03/12/18 02:01 03/12/18 03:00 Temperature Pulse Rate 120 H 121 H 120 H Respiratory Rate 19 18 19 Blood Pressure 114/69 125/72 Pulse Oximetry 97 98 98 03/12/18 04:00 03/12/18 05:00 03/12/18 05:06 Temperature 98.9 F Pulse Rate 117 H 127 H 131 H Respiratory Rate 20 24 21 Blood Pressure 113/71 127/74 Pulse Oximetry 98 03/12/18 06:00 03/12/18 06:31 03/12/18 07:00 Temperature Pulse Rate 113 H 110 H 107 H Respiratory Rate 20 19 18 Blood Pressure 110/69 113/73 Pulse Oximetry 98 98 98 03/12/18 07:01 03/12/18 07:31 03/12/18 08:00 Temperature 98.9 F Pulse Rate 107 H 108 H 103 H Respiratory Rate 17 21 20 Blood Pressure 107/74 121/70 Pulse Oximetry 98 98 99 03/12/18 08:01 03/12/18 08:31 03/12/18 09:00 Temperature Pulse Rate 107 H 125 H 121 H Respiratory Rate 18 21 22 Blood Pressure 140/78 134/83 Pulse Oximetry 98 99 99 03/12/18 09:01 03/12/18 09:31 03/12/18 10:00 Temperature Pulse Rate 118 H 119 H 110 H Respiratory Rate 20 23 20 Blood Pressure 117/80 131/84 Pulse Oximetry 99 99 99 03/12/18 10:01 03/12/18 10:31 03/12/18 11:00 Temperature Pulse Rate 118 H 101 H 106 H Respiratory Rate 24 25 H 24 Blood Pressure 118/77 114/77 Pulse Oximetry 98 99 03/12/18 11:21 03/12/18 11:31 03/12/18 12:00 Temperature 98.3 F Pulse Rate 122 H 117 H 120 H Respiratory Rate 26 H 22 22 Blood Pressure 117/77 113/72 Pulse Oximetry 98 98 98 03/12/18 12:01 03/12/18 12:31 Temperature Pulse Rate 119 H 114 H Respiratory Rate 20 22 Blood Pressure 119/73 113/65 Pulse Oximetry 98 97 Intake & Output 03/11/18 03/12/18 03/12/18 18:59 06:59 18:59 Intake Total 1530 / 1530 1410 / 1410 50 / 50 Output Total 865 / 865 320 / 320 Balance 665 / 665 1090 / 1090 50 / 50 Weight 63.3 kg Intake: IV 1350 / 1350 1350 / 1350 50 / 50 NS Inj 1,000 ML @ 100 mls/hr IV 1000 / 1000 1000 / 1000 .CONT .Q10H [facility] Rx#:[id number] Zosyn 3.375 GM Premix 3.375 gm 100 / 100 100 / 100 50 / 50 In 50 ml @ 100 mls/hr IV.SIG Q6H [facility] Rx#:[id number] Vancomycin Inj 1,000 MG In NS 250 / 250 250 / 250 Inj 250 ML @ 250 mls/hr IV.SIG Q12H [facility] Rx#:[id number] Oral 180 / 180 60 / 60 Output: Stool 75 / 75 Emesis 50 / 50 Urine Amount (Catheter) 740 / 740 250 / 250 Indwelling Urethral Catheter 740 / 740 250 / 250 Urine Amount (Stoma) 0 / 0 70 / 70 Nephrostomy Tube Left 0 / 0 70 / 70 Other: Date of Last Bowel Movement 03/11/18 03/11/18 03/11/18 # Bowel Movements 1 2 Result Diagrams: 03/12/18 05:15 03/12/18 05:15 Medications and IVs: Active Medications Generic Name Dose Route Start Last Admin Trade Name Freq PRN Reason Stop Dose Admin Acetaminophen 650 mg 03/07/18 23:05 03/11/18 12:26 Tylenol PO 650 mg Q4H PRN Administration Temp > 100.4 Al Hydroxide/Mg Hydroxide 30 ml 03/09/18 14:24 03/09/18 18:04 Milk Of Magnesia Liq PO 30 ml Q12H PRN Administration Moderate Constipation Belladonna Alkaloids/Opium 60 mg 03/10/18 15:43 B & O Supp RECTAL Q6HR PRN BLADDER SPASM Hydralazine HCl 50 mg 03/11/18 12:20 03/12/18 09:07 Apresoline PO 50 mg TID [facility] Administration Sodium Chloride 1,000 mls @ 100 mls/hr 03/08/18 00:40 03/12/18 01:36 Ns Inj IV.CONT 100 mls/hr .Q10H [facility] Administration Piperacillin/Tazobactam/Dextrose 3.375 gm in 50 mls @ 100 mls/hr 03/08/18 10: 00 03/12/18 09:06 Zosyn 3.375 Gm Premix IV.SIG Infused Q6H [facility] Infusion Vancomycin HCl 1,000 mg/ 250 mls @ 250 mls/hr 03/10/18 09:00 03/11/18 21:26 Sodium Chloride IV.SIG Infused Q12H [facility] Infusion Dextrose/Lactated Ringer's 1,000 mls @ 100 mls/hr 03/12/18 07:37 D5w/Lr Inj IV.CONT .Q10H [facility] Potassium Cl/Dextrose/Lact Ringer's 1,000 mls @ 150 mls/hr 03/12/18 09:00 04/25 09:00 D5w/Lr + Kcl 20 Meq Inj IV.SIG 150 mls/hr .Q6H40M [facility] Administration Metoprolol Tartrate 12.5 mg 03/11/18 09:00 03/12/18 09:07 Lopressor PO 12.5 mg BID [facility] Administration Miscellaneous 1 each 03/11/18 10:00 Pill Splitter [facility] Morphine Sulfate 4 mg 03/10/18 15:48 03/11/18 20:33 Morphine Inj IV.PUSH 4 mg Q4H PRN Administration pain 1 to 10 Ondansetron HCl 4 mg 03/07/18 23:05 03/11/18 13:35 Zofran Inj IV.PUSH 4 mg Q6H PRN Administration NAUSEA OR VOMITING Polyethylene Glycol 17 gm 03/09/18 14:24 03/09/18 21:14 Miralax PO 17 gm DAILY PRN Administration Moderate-severe constipation Senna/Docusate Sodium 1 tab 03/09/18 21:00 03/12/18 10:15 Allyssa-Colace PO Not Given BID [facility] Sodium Chloride 2 ml 03/08/18 09:00 03/12/18 09:09 Ns Flush IV.FLUSH 2 ml BID [facility] Administration Sodium Chloride 2 ml 03/07/18 23:05 Ns Flush IV.FLUSH PRN PRN FLUSH AFTER USING IV ACCESS Objective Remarks: CV: sinus tach Abd:soft, mild distension; no rebound Price: old dark blood Ext: neg C/C/E 03/10 CV: sinus tach Abd:soft,less tenderness and distension Pirce: blood tinged PCNT: bloody 03/10 16:00: SP pains. Bladder not palpable. No SP tenderness. Abd: now non tender LLQ. Bloody urine via nephrostomy, no clots. Bloody urine via price catheter, no clots. 03/11: Scant urine output via Nephrostomy tube. It may not be draining, will wait and see. Fairly good urine output via price catheter. Urine dark blood tinged, no clots. BP varies high to normal, Pulse varies, temp 99. 03/12: See "Subjective" for the Objective. Suspect Vancomycin toxicity causing deterioration in kidney function and decreased urine output. N tube draining dark burgundy urine. PLAN: Dr. Little following the labs. N tube irrigation by IR if needed. 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 Back up plan is to try to place a urinary stent cystoscopically in the OR. However, there is a great possibility that the presumed UPJ stenosis will prevent passage of guide wires and stent. 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 Discussed with Dr. Little. 03/11: N tube may or may not be draining. Sepsis improving. Still having bladder spasms, receiving Morphine. PLAN: Continue same. 03/12 See "Subjective", "Objective". Discussed Condition With: Patient, mother, nurse.
[2018-03-12 17:53] LABS: Hematocrit 22.5 % (39.0-51.0)
[2018-03-12 18:42] LABS: Carbon Dioxide 23.4 meq/L (21.0-32.0); Potassium 3.2 meq/L (3.5-5.1)
[2018-03-12] MEDS ORDERED: Morphine Inj 4 MG/ML Vial IV.PUSH PRN (19:20)
[2018-03-12] MEDS ORDERED: Piperacil/Tazo 2.25 GM Premix 2.25 GM/50 ML PIGGYBACK IV.SIG SCH (19:21)
[2018-03-12] MEDS ORDERED: hydrALAZINE 50 MG Tablet PO SCH (19:23)
[2018-03-13] MEDS: Piperacil/Tazo 2.25 GM Premix 2.25 GM/50 ML PIGGYBACK IV.SIG SCH ×4 (00:15→23:29)
[2018-03-13] MEDS: KCL 20 mEq/D5W/LR Inj 1,000 ML IV.SIG SCH ×3 (02:09→20:38)
[2018-03-13 06:56] LABS: Baso # (Auto) 0.1 th/mm3 (0.0-0.2); Baso % (Auto) 0.9 % (0.0-2.0); Eos # (Auto) 0.1 th/mm3 (0.0-0.4); Eos % (Auto) 1.4 % (0.0-4.0); Hematocrit 22.3 % (39.0-51.0); Hemoglobin 7.6 gm/dL (13.0-17.0); Lymph # (Auto) 0.8 th/mm3 (1.0-4.8); Lymph % (Auto) 9.2 % (9.0-44.0); Mean Corpuscular HGB Conc 34.3 % (32.0-36.0); Mean Corpuscular Hemoglobin 29.5 pg (27.0-34.0); Mean Platelet Volume 8.2 fL (7.0-11.0); Mono # (Auto) 1.2 th/mm3 (0.0-0.9); Mono % (Auto) 13.4 % (0.0-8.0); Neut # (Auto) 6.9 th/mm3 (1.8-7.7); Neut % (Auto) 75.1 % (16.0-70.0); Platelet Count 220 th/mm3 (150-450); Red Blood Count 2.59 mil/mm3 (4.50-5.90); Red Cell Distribution Width 15.7 % (11.6-17.2); White Blood Count 9.1 th/mm3 (4.0-11.0)
[2018-03-13 07:22] LABS: Alanine Aminotransferase 13 U/L (12-78); Alkaline Phosphatase 33 U/L (45-117); Anion Gap 9 meq/L (5-15); Aspartate Aminotransferase 14 U/L (15-37); Blood Urea Nitrogen 22 mg/dL (7-18); Calcium 8.1 mg/dL (8.5-10.1); Carbon Dioxide 22.9 meq/L (21.0-32.0); Chloride 112 meq/L (98-107); Glomerular Filtration Rate 16 mL/min (>89); Glucose,Random 115 mg/dL (74-106); Potassium 3.4 meq/L (3.5-5.1); Sodium 144 meq/L (136-145); Total Protein 5.5 g/dL (6.4-8.2)
--- NOTE | 2018-03-13 09:01 | US ---
EXAM DATE: 03/13/2018 8:49 AM EST AGE/SEX: 37 years / Male INDICATIONS: Worsening acute kidney injury. Horseshoe kidney with left nephrostomy placed 03/08/18. CLINICAL DATA: This is the patient's subsequent encounter. Patient reports that signs and symptoms h ave been present for 4 - 6 days and indicates a pain score of 3/10. MEDICAL/SURGICAL HISTORY: . Asthma. Seizure. Horseshoe kidney. . Tympanostomy tube. Pneumot horax. COMPARISON: [facility] [place], CT ABDOMEN & PELVIS W/O CONTRAST, 03/09/2018. . MEASUREMENTS: Horseshoe kidney. FINDINGS: Patient has a known horseshoe kidney. There is no hydronephrosis on the right. There is moderate dila tation of the collecting system on the left with very poor delineation of the renal cortex. There is a 4 cm complex fluid collection around the nephrostomy. There is moderate free fluid present in the p charisam. CONCLUSION: 1. Markedly abnormal left kidney with nephrostomy tube in place. 2. Repeat noncontrast CT scan may be of benefit. Electronically signed by: Finesse Arciniega MD Board Certified Radiologist 03/13/2018 9:00 AM EST
--- NOTE | 2018-03-13 09:11 | P.PNIM ---
Subjective Interval history: slept well. feeling tired,has been seated on chair. had some loose bowel motions overnight. Physical Exam Vital signs: Vital Signs 03/12/18 09:31 03/12/18 10:00 03/12/18 10:01 Temperature Pulse Rate 119 H 110 H 118 H Respiratory Rate 23 20 24 Blood Pressure 131/84 118/77 Pulse Oximetry 99 99 03/12/18 10:31 03/12/18 11:00 03/12/18 11:21 Temperature Pulse Rate 101 H 106 H 122 H Respiratory Rate 25 H 24 26 H Blood Pressure 114/77 117/77 Pulse Oximetry 98 99 98 03/12/18 11:31 03/12/18 12:00 03/12/18 12:01 Temperature 98.3 F Pulse Rate 117 H 120 H 119 H Respiratory Rate 22 22 20 Blood Pressure 113/72 119/73 Pulse Oximetry 98 98 98 03/12/18 12:31 03/12/18 13:00 03/12/18 13:01 Temperature Pulse Rate 114 H 117 H 117 H Respiratory Rate 22 21 22 Blood Pressure 113/65 120/68 Pulse Oximetry 97 97 97 03/12/18 13:31 03/12/18 14:00 03/12/18 14:01 Temperature Pulse Rate 120 H 124 H 123 H Respiratory Rate 21 23 19 Blood Pressure 114/65 118/69 Pulse Oximetry 97 98 98 03/12/18 14:41 03/12/18 15:00 03/12/18 16:00 Temperature 99.1 F Pulse Rate 119 H 118 H 119 H Respiratory Rate 19 24 20 Blood Pressure 112/71 114/68 123/76 Pulse Oximetry 98 97 98 03/12/18 17:00 03/12/18 18:00 03/12/18 19:00 Temperature Pulse Rate 119 H 119 H Respiratory Rate 20 19 Blood Pressure 112/64 123/76 114/65 Pulse Oximetry 98 97 03/12/18 20:00 03/12/18 21:00 03/12/18 22:00 Temperature 98 F Pulse Rate 120 H 112 H 127 H Respiratory Rate 22 20 18 Blood Pressure 118/66 116/66 109/59 L Pulse Oximetry 97 97 97 03/12/18 23:00 03/13/18 00:00 03/13/18 01:00 Temperature 98.1 F Pulse Rate 107 H 107 H 107 H Respiratory Rate 17 18 18 Blood Pressure 107/66 100/65 104/62 Pulse Oximetry 97 97 97 03/13/18 02:00 03/13/18 03:00 03/13/18 04:00 Temperature 98.2 F Pulse Rate 107 H 108 H 103 H Respiratory Rate 19 17 13 Blood Pressure 109/67 104/66 111/70 Pulse Oximetry 96 95 97 03/13/18 05:00 03/13/18 06:00 Temperature Pulse Rate 105 H 101 H Respiratory Rate 15 13 Blood Pressure 105/70 104/69 Pulse Oximetry 95 96 Intake & Output 03/12/18 03/13/18 03/13/18 18:59 06:59 18:59 Intake Total 1760 / 1760 1380 / 1380 Output Total 270 / 270 225 / 225 Balance 1490 / 1490 1155 / 1155 Weight 66.3 kg Intake: IV 1100 / 1100 1000 / 1000 D5W/LR + KCL 20 mEq Inj 1,000 1000 / 1000 1000 / 1000 ML @ 75 mls/hr IV.SIG .[id number] [facility] Rx#:[id number] Zosyn 3.375 GM Premix 3.375 gm 100 / 100 In 50 ml @ 100 mls/hr IV.SIG Q6H [facility] Rx#:[id number] Oral 660 / 660 380 / 380 Output: Urine Amount (Catheter) 70 / 70 125 / 125 Indwelling Urethral Catheter 70 / 70 125 / 125 Urine Amount (Stoma) 100 / 100 Nephrostomy Tube Left 100 / 100 Wound Drainage 200 / 200 Left Posterior Chest 200 / 200 Other: Date of Last Bowel Movement 03/11/18 03/11/18 # Bowel Movements 0 Narrative: GENERAL: Thin patient seated in chair, in no distress SKIN: Warm and dry. HEENT: pale,anicteric NECK: Supple, trachea midline. No JVD or lymphadenopathy. CARDIOVASCULAR: Tachycardia,S1S2 normal,no murmurs. RESPIRATORY: CTAB,no rales GASTROINTESTINAL: Abdomen soft, non-tender, nondistended. Lt nephrostomy tube with bloody drainage. GUN:price cath in situ, blood stained urine MUSCULOSKELETAL: No cyanosis,1+ pedal edema. BACK: Nontender without obvious deformity. No CVA tenderness. Urinary Catheter Management Indwelling Urethral Catheter: Cath placed during this visit: yes Reason for continuing: Other continuation reason Insertion date: 03/09/18 Results Labs CBC & Chem 7: 03/25/18 04:19 03/26/18 05:23 Labs: Microbiology 03/08/18 11:00 Blood - Peripheral Aerobic Blood Culture - Preliminary No growth in 4 days 03/08/18 11:00 Blood - Peripheral Anaerobic Blood Culture - Preliminary No growth in 4 days 03/08/18 10:54 Blood - Peripheral Aerobic Blood Culture - Preliminary No growth in 4 days 03/08/18 10:54 Blood - Peripheral Anaerobic Blood Culture - Preliminary No growth in 4 days Imaging Imaging: Impressions Abdomen/Bladder Ultrasound 03/13/18 00:00 CONCLUSION: 1. Markedly abnormal left kidney with nephrostomy tube in place. 2. Repeat noncontrast CT scan may be of benefit. 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 1.Sepsis likely due to infected lt kidney. -Leucocytosis trending down,28-->12 lactate normalized. -blood cultures negative to date -BP responded appropriately to fluids, he remains tachycardic. -continue IV fluids. -Continue IV Zosyn, adjust dose to gfr hold Vanc for now in light of [place] 2.Acute kidney injury-due to obstructive uropathy- Cr 2.14 on admission normalized after nephrostomy. Now recurred, since 2,Cr 1.75 -->4.1-multifactorial likely, pre renal(patient had loose bowel motions) and vanc toxicity. keep on IV fluids.repeat vanc level. avoid nephrotoxins, dose meds to gfr. maintain strict i/o. renal u/s on 03/13--marked abnormal lt kidney with complex fluid collection around nephrostomy tube,moderate free fluid in pelvis. non contrast ct abd/ pelvis has been ordered. nephrology consult to assist with mx. urology following. 3.Lt Hydronephrosis with possible hemorrhage due to Horse shoe kidney- appreciate urology recs, patient s/p nephrostomy- still with bloody drainage. IR and urology following. 4. Acute anemia due to blood loss-secondary to hematuria. s/p prbc transfusion,total 4 units this admission so far including last night 03/10. Hb still trending down, 7.6 this morning. Monitor H/h q6h, transfuse if Hb<7. 5. HTN- patient reports h/o hypertension, he has not been on any medication. keep on cardiac diet. BP trends much improved. 6.Dysphagia-consulted speech-recs noted. GI consult recommended. 7. Protein calorie malnutrion, moderate, albumin 2.6-2.7 range. nutrition consult. Hypokalemia-replete. DVT prophylaxis: SCDs, no heparin given hematuria. Discharge Planning: Plan to DC home when clinically improved. Progress Note: Quality VTE Deep Vein Thrombosis/Pulmonary Embolism Present on Admission: No
[2018-03-13] MEDS: Metoprolol Tartrate 25 MG Tablet PO SCH ×2 (09:54→20:40)
--- NOTE | 2018-03-13 10:32 | P.PNURO ---
Subjective Patient symptoms today: Pt seen and examined. Urine blood from left PCNT and in price catheter. Creatinine up to 4.7. CT showed fluid collection around kidney; probably blood. Some trouble with swallowing. GI w/u pending. Objective Vital Signs: Vital Signs 03/12/18 10:31 03/12/18 11:00 03/12/18 11:21 Temperature Pulse Rate 101 H 106 H 122 H Respiratory Rate 25 H 24 26 H Blood Pressure 114/77 117/77 Pulse Oximetry 98 99 98 03/12/18 11:31 03/12/18 12:00 03/12/18 12:01 Temperature 98.3 F Pulse Rate 117 H 120 H 119 H Respiratory Rate 22 22 20 Blood Pressure 113/72 119/73 Pulse Oximetry 98 98 98 03/12/18 12:31 03/12/18 13:00 03/12/18 13:01 Temperature Pulse Rate 114 H 117 H 117 H Respiratory Rate 22 21 22 Blood Pressure 113/65 120/68 Pulse Oximetry 97 97 97 03/12/18 13:31 03/12/18 14:00 03/12/18 14:01 Temperature Pulse Rate 120 H 124 H 123 H Respiratory Rate 21 23 19 Blood Pressure 114/65 118/69 Pulse Oximetry 97 98 98 03/12/18 14:41 03/12/18 15:00 03/12/18 16:00 Temperature 99.1 F Pulse Rate 119 H 118 H 119 H Respiratory Rate 19 24 20 Blood Pressure 112/71 114/68 123/76 Pulse Oximetry 98 97 98 03/12/18 17:00 03/12/18 18:00 03/12/18 19:00 Temperature Pulse Rate 119 H 119 H Respiratory Rate 20 19 Blood Pressure 112/64 123/76 114/65 Pulse Oximetry 98 97 03/12/18 20:00 03/12/18 21:00 03/12/18 22:00 Temperature 98 F Pulse Rate 120 H 112 H 127 H Respiratory Rate 22 20 18 Blood Pressure 118/66 116/66 109/59 L Pulse Oximetry 97 97 97 03/12/18 23:00 03/13/18 00:00 03/13/18 01:00 Temperature 98.1 F Pulse Rate 107 H 107 H 107 H Respiratory Rate 17 18 18 Blood Pressure 107/66 100/65 104/62 Pulse Oximetry 97 97 97 03/13/18 02:00 03/13/18 03:00 03/13/18 04:00 Temperature 98.2 F Pulse Rate 107 H 108 H 103 H Respiratory Rate 19 17 13 Blood Pressure 109/67 104/66 111/70 Pulse Oximetry 96 95 97 03/13/18 05:00 03/13/18 06:00 Temperature Pulse Rate 105 H 101 H Respiratory Rate 15 13 Blood Pressure 105/70 104/69 Pulse Oximetry 95 96 Intake & Output 03/12/18 03/13/18 03/13/18 18:59 06:59 18:59 Intake Total 1760 / 1760 1430 / 1430 Output Total 270 / 270 225 / 225 Balance 1490 / 1490 1205 / 1205 Weight 66.3 kg Intake: IV 1100 / 1100 1050 / 1050 D5W/LR + KCL 20 mEq Inj 1,000 1000 / 1000 1000 / 1000 ML @ 75 mls/hr IV.SIG .[id number] [facility] Rx#:[id number] Zosyn 2.25 GM Premix 2.25 gm In 50 / 50 50 ml @ 100 mls/hr IV.SIG Q8H [facility] Rx#:[id number] Zosyn 3.375 GM Premix 3.375 gm 100 / 100 In 50 ml @ 100 mls/hr IV.SIG Q6H [facility] Rx#:[id number] Oral 660 / 660 380 / 380 Output: Urine Amount (Catheter) 70 / 70 125 / 125 Indwelling Urethral Catheter 70 / 70 125 / 125 Urine Amount (Stoma) 100 / 100 Nephrostomy Tube Left 100 / 100 Wound Drainage 200 / 200 Left Posterior Chest 200 / 200 Other: Date of Last Bowel Movement 03/11/18 03/11/18 # Bowel Movements 0 Result Diagrams: 03/13/18 06:45 03/13/18 06:40 Imaging: Impressions Abdomen/Bladder Ultrasound 03/13/18 00:00 CONCLUSION: 1. Markedly abnormal left kidney with nephrostomy tube in place. 2. Repeat noncontrast CT scan may be of benefit. Medications and IVs: Active Medications Generic Name Dose Route Start Last Admin Trade Name Freq PRN Reason Stop Dose Admin Acetaminophen 650 mg 03/07/18 23:05 03/11/18 12:26 Tylenol PO 650 mg Q4H PRN Administration Temp > 100.4 Belladonna Alkaloids/Opium 60 mg 03/10/18 15:43 B & O Supp RECTAL Q6HR PRN BLADDER SPASM Hydralazine HCl 25 mg 03/12/18 19:23 Apresoline PO TID [facility] Sodium Chloride 1,000 mls @ 100 mls/hr 03/08/18 00:40 03/12/18 01:36 Ns Inj IV.CONT 100 mls/hr .Q10H [facility] Administration Vancomycin HCl 1,000 mg/ 250 mls @ 250 mls/hr 03/10/18 09:00 03/11/18 21:26 Sodium Chloride IV.SIG Infused Q12H [facility] Infusion Dextrose/Lactated Ringer's 1,000 mls @ 100 mls/hr 03/12/18 07:37 D5w/Lr Inj IV.CONT .Q10H [facility] Potassium Cl/Dextrose/Lact Ringer's 1,000 mls @ 75 mls/hr 03/12/18 09:00 05/26 02:10 D5w/Lr + Kcl 20 Meq Inj IV.SIG Not Given .[id number] [facility] Piperacillin/Tazobactam/Dextrose 2.25 gm in 50 mls @ 100 mls/hr 03/13/18 00: 00 03/13/18 09:55 Zosyn 2.25 Gm Premix IV.SIG 100 mls/hr Q8H [facility] Administration Metoprolol Tartrate 12.5 mg 03/11/18 09:00 03/13/18 09:54 Lopressor PO 12.5 mg BID [facility] Administration Miscellaneous 1 each 03/11/18 10:00 Pill Splitter OTHER UNSCH [facility] Morphine Sulfate 1 mg 03/13/18 08:58 Morphine Inj IV.PUSH Q4H PRN pain 1 to 10 Ondansetron HCl 4 mg 03/07/18 23:05 03/11/18 13:35 Zofran Inj IV.PUSH 4 mg Q6H PRN Administration NAUSEA OR VOMITING Polyethylene Glycol 17 gm 03/09/18 14:24 03/09/18 21:14 Miralax PO 17 gm DAILY PRN Administration Moderate-severe constipation Senna/Docusate Sodium 1 tab 03/09/18 21:00 03/12/18 21:46 Allyssa-Colace PO 1 tab BID [facility] Administration Sodium Chloride 2 ml 03/08/18 09:00 03/12/18 21:47 Ns Flush IV.FLUSH 2 ml BID [facility] Administration Sodium Chloride 2 ml 03/07/18 23:05 Ns Flush IV.FLUSH PRN PRN FLUSH AFTER USING IV ACCESS Objective Remarks: CV: sinus tach Abd:soft, mild distension; no rebound Price: old dark blood Ext: neg C/C/E 03/10 CV: sinus tach Abd:soft,less tenderness and distension Price: blood tinged PCNT: bloody 03/10 16:00: SP pains. Bladder not palpable. No SP tenderness. Abd: now non tender LLQ. Bloody urine via nephrostomy, no clots. Bloody urine via price catheter, no clots. 03/11: Scant urine output via Nephrostomy tube. It may not be draining, will wait and see. Fairly good urine output via price catheter. Urine dark blood tinged, no clots. BP varies high to normal, Pulse varies, temp 99. 03/12: See "Subjective" for the Objective. Suspect Vancomycin toxicity causing deterioration in kidney function and decreased urine output. N tube draining dark burgundy urine. PLAN: Dr. Little following the labs. N tube irrigation by IR if needed. 03/13 Abd:soft,nt,nd Left PNCT with blood Price: hematuria Assessment and Plan - Assessment (1) Sepsis due to urinary tract infection Code(s): A41.9 - Sepsis, unspecified organism; N39.0 - Urinary tract infection, site not specified Status: Acute Onset Date: ~03/07/18 (2) Hydronephrosis of left kidney Code(s): N13.30 - Unspecified hydronephrosis Status: Chronic (3) 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 Back up plan is to try to place a urinary stent cystoscopically in the OR. However, there is a great possibility that the presumed UPJ stenosis will prevent passage of guide wires and stent. 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 Discussed with Dr. Little. 03/11: N tube may or may not be draining. Sepsis improving. Still having bladder spasms, receiving Morphine. PLAN: Continue same. 03/12 See "Subjective", "Objective". 03/13 37 y.o male with sepsis and h/o horseshoe kidney s/p PCNT placement with hematuria Continue supportive measures for now Transfuse PRBC's today if repeat Hgb is below 8 Monitor u/o; avoid nephrotoxins Will follow.
--- NOTE | 2018-03-13 11:14 | P.CONNP ---
<Wandy Pathak - Last Filed: 03/13/18 10:58> History of Present Illness Service: Nephrology Consult date: 03/13/18 Requesting Physician: Benedict Little Reason for Consult: Acute kidney injury Primary Care Provider: Reginald Mays Chief Complaint: Blood in urine History of Present Illness: Patient is 37 y/o male with a history of asthma, pneumothorax X 2, and seizures (as a child, not on medication) was a transfer from [facility] due to abdominal pain resulting in hydronephrosis of the left side. Creatinine was initially elevated at 2.14 which improved after nephrostomy tube placement, and now has worsened again with creatinine of 4.1. Nephrology is consulted for worsening renal indices. Repeat Renal ultrasound with known horseshoe kidney. There is no hydronephrosis on the right. There is moderate dilatation of the collecting system on the left with very poor delineation of the renal cortex. There is a 4 cm complex fluid collection around the nephrostomy. There is moderate free fluid present in the pelvis. Has IVF infusing. No shortness of breath, nausea, vomiting, or fevers. Has had loose stools and dysphagia and GI has been consulted. Review of Systems All other systems reviewed negative except as stated in HPI PMFSH - History History Provided By: Patient - Medical History Medical History: Medical History (Last Reviewed 03/13/18 @ 07:55 by Maeve Garcia) Asthma Seizures - Surgical History Surgical History: Surgical History (Last Reviewed 03/13/18 @ 07:55 by Maeve Garcia) Hx of tympanostomy tubes Pneumothorax - Family History Family History: Family History (Last Reviewed 03/12/18 @ 14:11 by Letitia Mulligan) Other Family history non-contributory - Tobacco History Second Hand Smoke Exposure: No Tobacco Use In Past 30 Days: No Smoking Status: Former smoker Tobacco Type: Cigarettes - Alcohol History How Often Do You Have a Drink Containing Alcohol: Never - Substance Use History Substance History: No History of Abuse - Travel History Recent Travel in the [place] Within the Last 8 Weeks: No Recent Travel Out of the Country Within the Last 8 Weeks: No - Immunization History Tetanus Immunization: Unsure Hx Influenza Vaccine This Season: No Medications and Allergies Allergies Allergy/AdvReac Type Severity Reaction Status Date / Time meperidine [From Demerol] Allergy Hives Verified 03/09/18 04:22 Active Medications: Active Medications Acetaminophen (Tylenol) 650 mg PO Q4H PRN PRN Reason: Temp > 100.4 Last Admin: 03/11/18 12:26 Dose: 650 mg Belladonna Alkaloids/Opium (B & O Supp) 60 mg RECTAL Q6HR PRN PRN Reason: BLADDER SPASM Hydralazine HCl (Apresoline) 25 mg PO TID [facility] Sodium Chloride (Ns Inj) 1,000 mls @ 100 mls/hr IV.CONT .Q10H [facility] Last Admin: 03/12/18 01:36 Dose: 100 mls/hr Vancomycin HCl 1,000 mg/ (Sodium Chloride) 250 mls @ 250 mls/hr IV.SIG Q12H [facility] Last Infusion: 03/11/18 21:26 Dose: Infused Dextrose/Lactated Ringer's (D5w/Lr Inj) 1,000 mls @ 100 mls/hr IV.CONT .Q10H [facility] Potassium Cl/Dextrose/Lact Ringer's (D5w/Lr + Kcl 20 Meq Inj) 1,000 mls @ 75 mls/hr IV.SIG .[id number] [facility] Last Admin: 03/13/18 02:10 Dose: Not Given Piperacillin/Tazobactam/Dextrose (Zosyn 2.25 Gm Premix) 2.25 gm in 50 mls @ 100 mls/hr IV.SIG Q8H [facility] Last Admin: 03/13/18 09:55 Dose: 100 mls/hr Metoprolol Tartrate (Lopressor) 12.5 mg PO BID [facility] Last Admin: 03/13/18 09:54 Dose: 12.5 mg Miscellaneous (Pill Splitter) 1 each OTHER [facility] Morphine Sulfate (Morphine Inj) 1 mg IV.PUSH Q4H PRN PRN Reason: pain 1 to 10 Ondansetron HCl (Zofran Inj) 4 mg IV.PUSH Q6H PRN PRN Reason: NAUSEA OR VOMITING Last Admin: 03/11/18 13:35 Dose: 4 mg Polyethylene Glycol (Miralax) 17 gm PO DAILY PRN PRN Reason: Moderate-severe constipation Last Admin: 03/09/18 21:14 Dose: 17 gm Senna/Docusate Sodium (Allyssa-Colace) 1 tab PO BID [facility] Last Admin: 03/12/18 21:46 Dose: 1 tab Sodium Chloride (Ns Flush) 2 ml IV.FLUSH BID [facility] Last Admin: 03/12/18 21:47 Dose: 2 ml Sodium Chloride (Ns Flush) 2 ml IV.FLUSH PRN PRN PRN Reason: FLUSH AFTER USING IV ACCESS Exam Vital signs: Vital Signs 03/12/18 11:00 03/12/18 11:21 03/12/18 11:31 Temperature Pulse Rate 106 H 122 H 117 H Respiratory Rate 24 26 H 22 Blood Pressure 117/77 113/72 Pulse Oximetry 99 98 98 03/12/18 12:00 03/12/18 12:01 03/12/18 12:31 Temperature 98.3 F Pulse Rate 120 H 119 H 114 H Respiratory Rate 22 20 22 Blood Pressure 119/73 113/65 Pulse Oximetry 98 98 97 03/12/18 13:00 03/12/18 13:01 03/12/18 13:31 Temperature Pulse Rate 117 H 117 H 120 H Respiratory Rate 21 22 21 Blood Pressure 120/68 114/65 Pulse Oximetry 97 97 97 03/12/18 14:00 03/12/18 14:01 03/12/18 14:41 Temperature Pulse Rate 124 H 123 H 119 H Respiratory Rate 23 19 19 Blood Pressure 118/69 112/71 Pulse Oximetry 98 98 98 03/12/18 15:00 03/12/18 16:00 03/12/18 17:00 Temperature 99.1 F Pulse Rate 118 H 119 H 119 H Respiratory Rate 24 20 20 Blood Pressure 114/68 123/76 112/64 Pulse Oximetry 97 98 98 03/12/18 18:00 03/12/18 19:00 03/12/18 20:00 Temperature 98 F Pulse Rate 119 H 120 H Respiratory Rate 19 22 Blood Pressure 123/76 114/65 118/66 Pulse Oximetry 97 97 03/12/18 21:00 03/12/18 22:00 03/12/18 23:00 Temperature Pulse Rate 112 H 127 H 107 H Respiratory Rate 20 18 17 Blood Pressure 116/66 109/59 L 107/66 Pulse Oximetry 97 97 97 03/13/18 00:00 03/13/18 01:00 03/13/18 02:00 Temperature 98.1 F Pulse Rate 107 H 107 H 107 H Respiratory Rate 18 18 19 Blood Pressure 100/65 104/62 109/67 Pulse Oximetry 97 97 96 03/13/18 03:00 03/13/18 04:00 03/13/18 05:00 Temperature 98.2 F Pulse Rate 108 H 103 H 105 H Respiratory Rate 17 13 15 Blood Pressure 104/66 111/70 105/70 Pulse Oximetry 95 97 95 03/13/18 06:00 Temperature Pulse Rate 101 H Respiratory Rate 13 Blood Pressure 104/69 Pulse Oximetry 96 Intake & Output 03/12/18 03/13/18 03/13/18 18:59 06:59 18:59 Intake Total 1760 / 1760 1430 / 1430 Output Total 270 / 270 225 / 225 Balance 1490 / 1490 1205 / 1205 Weight 66.3 kg Intake: IV 1100 / 1100 1050 / 1050 D5W/LR + KCL 20 mEq Inj 1,000 1000 / 1000 1000 / 1000 ML @ 75 mls/hr IV.SIG .[id number] [facility] Rx#:[id number] Zosyn 2.25 GM Premix 2.25 gm In 50 / 50 50 ml @ 100 mls/hr IV.SIG Q8H [facility] Rx#:[id number] Zosyn 3.375 GM Premix 3.375 gm 100 / 100 In 50 ml @ 100 mls/hr IV.SIG Q6H [facility] Rx#:[id number] Oral 660 / 660 380 / 380 Output: Urine Amount (Catheter) 70 / 70 125 / 125 Indwelling Urethral Catheter 70 / 70 125 / 125 Urine Amount (Stoma) 100 / 100 Nephrostomy Tube Left 100 / 100 Wound Drainage 200 / 200 Left Posterior Chest 200 / 200 Other: Date of Last Bowel Movement 03/11/18 03/11/18 # Bowel Movements 0 Narrative: GENERAL: Alert and oriented. SKIN: Warm and dry. NECK: Supple, trachea midline. No JVD CARDIOVASCULAR: Regular rate and rhythm without murmurs, gallops, or rubs. RESPIRATORY: Breath sounds equal bilaterally. No accessory muscle use. GASTROINTESTINAL: Abdomen soft, non-tender, nondistended. +BS GI: Left nephrostomy tube and indwelling Caldwell catheter with bloody drainage. MUSCULOSKELETAL: No cyanosis, or edema. BACK: Nontender without obvious deformity. No CVA tenderness. Results - Lab Results 03/13/18 06:45 03/13/18 06:40 Most recent lab results Calcium 8.1 mg/dL (8.5-10.1) L 03/13/18 06:40 - Image Kidney/bladder ultrasound: report reviewed Assessment and Plan - Assessment (1) Acute kidney injury Code(s): N17.9 - Acute kidney failure, unspecified Status: Acute Plan: PARISH possible prerenal vs ATN from vancomycin toxicity and GI losses. Repeat Renal ultrasound with known horseshoe kidney. There is no hydronephrosis on the right. There is moderate dilatation of the collecting system on the left with very poor delineation of the renal cortex. There is a 4 cm complex fluid collection around the nephrostomy. There is moderate free fluid present in the pelvis. Urine EOS, sodium, and osmolarity ordered as well as repeat UA Recommend to continue IVF as patient PO intake is poor with dysphagia Avoid nephrotoxins including IV contrast and NSAIDS Creatinine has increased at 4.1 today, with some decreased urinary output Fluid and electrolytes stable will follow urinary output and BMP Serology ordered. Labs in AM (2) Hypertension Code(s): I10 - Essential (primary) hypertension Status: Acute Plan: Blood pressure well controlled. On hydralazine and metoprolol (3) Sepsis Code(s): A41.9 - Sepsis, unspecified organism Status: Acute Plan: On antibiotics, renal dose as indicated. (4) Hydronephrosis of left kidney Code(s): N13.30 - Unspecified hydronephrosis Status: Chronic Onset Date: Unknown Plan: S/p nephrostomy tube Urology managing. (5) Anemia Code(s): D64.9 - Anemia, unspecified Status: Acute Plan: HGB at 7.6, has received PRBC Transfuse for HGB less than 7.0 <Jorge Scott Q - Last Filed: 03/13/18 21:07> History of Present Illness Primary Care Provider: Reginald Mays [facility] - Medical History Medical History: Medical History (Last Reviewed 03/13/18 @ 07:55 by Maeve Garcia) Asthma Seizures - Surgical History Surgical History: Surgical History (Last Reviewed 03/13/18 @ 07:55 by Maeve Garcia) Hx of tympanostomy tubes Pneumothorax - Family History Family History: Family History (Last Reviewed 03/12/18 @ 14:11 by Letitia Mulligan) Other Family history non-contributory Medications and Allergies Active Medications: Active Medications Acetaminophen (Tylenol) 650 mg PO Q4H PRN PRN Reason: Temp > 100.4 Last Admin: 03/11/18 12:26 Dose: 650 mg Belladonna Alkaloids/Opium (B & O Supp) 60 mg RECTAL Q6HR PRN PRN Reason: BLADDER SPASM Hydralazine HCl (Apresoline) 25 mg PO TID [facility] Sodium Chloride (Ns Inj) 1,000 mls @ 100 mls/hr IV.CONT .Q10H [facility] Last Infusion: 03/13/18 15:27 Dose: Infused Vancomycin HCl 1,000 mg/ (Sodium Chloride) 250 mls @ 250 mls/hr IV.SIG Q12H [facility] Last Infusion: 03/11/18 21:26 Dose: Infused Dextrose/Lactated Ringer's (D5w/Lr Inj) 1,000 mls @ 100 mls/hr IV.CONT .Q10H [facility] Potassium Cl/Dextrose/Lact Ringer's (D5w/Lr + Kcl 20 Meq Inj) 1,000 mls @ 75 mls/hr IV.SIG .[id number] [facility] Last Admin: 03/13/18 20:38 Dose: 75 mls/hr Piperacillin/Tazobactam/Dextrose (Zosyn 2.25 Gm Premix) 2.25 gm in 50 mls @ 100 mls/hr IV.SIG Q8H [facility] Last Infusion: 03/13/18 18:05 Dose: Infused Metoprolol Tartrate (Lopressor) 12.5 mg PO BID [facility] Last Admin: 03/13/18 20:40 Dose: 12.5 mg Miscellaneous (Pill Splitter) 1 each OTHER [facility] Morphine Sulfate (Morphine Inj) 1 mg IV.PUSH Q4H PRN PRN Reason: pain 1 to 10 Last Admin: 03/13/18 20:37 Dose: 1 mg Ondansetron HCl (Zofran Inj) 4 mg IV.PUSH Q6H PRN PRN Reason: NAUSEA OR VOMITING Last Admin: 03/13/18 17:21 Dose: 4 mg Pantoprazole Sodium (Protonix) 40 mg PO DAILY [facility] Last Admin: 03/13/18 17:06 Dose: 40 mg Polyethylene Glycol (Miralax) 17 gm PO DAILY PRN PRN Reason: Moderate-severe constipation Last Admin: 03/09/18 21:14 Dose: 17 gm Senna/Docusate Sodium (Allyssa-Colace) 1 tab PO BID [facility] Last Admin: 03/13/18 13:29 Dose: Not Given Sodium Chloride (Ns Flush) 2 ml IV.FLUSH BID [facility] Last Admin: 03/13/18 13:28 Dose: 2 ml Sodium Chloride (Ns Flush) 2 ml IV.FLUSH PRN PRN PRN Reason: FLUSH AFTER USING IV ACCESS Exam Vital signs: Vital Signs 03/12/18 22:00 03/12/18 23:00 03/13/18 00:00 Temperature 98.1 F Pulse Rate 127 H 107 H 107 H Respiratory Rate 18 17 18 Blood Pressure 109/59 L 107/66 100/65 Pulse Oximetry 97 97 97 03/13/18 01:00 03/13/18 02:00 03/13/18 03:00 Temperature Pulse Rate 107 H 107 H 108 H Respiratory Rate 18 19 17 Blood Pressure 104/62 109/67 104/66 Pulse Oximetry 97 96 95 03/13/18 04:00 03/13/18 05:00 03/13/18 06:00 Temperature 98.2 F Pulse Rate 103 H 105 H 101 H Respiratory Rate 13 15 13 Blood Pressure 111/70 105/70 104/69 Pulse Oximetry 97 95 96 03/13/18 07:00 03/13/18 08:00 03/13/18 09:00 Temperature 99.4 F Pulse Rate 101 H 111 H 114 H Respiratory Rate 19 21 20 Blood Pressure 108/70 112/75 Pulse Oximetry 97 98 03/13/18 10:00 03/13/18 11:00 03/13/18 12:00 Temperature Pulse Rate 128 H 114 H 115 H Respiratory Rate 20 21 20 Blood Pressure 135/83 138/78 131/76 Pulse Oximetry 99 98 98 03/13/18 13:00 03/13/18 13:32 03/13/18 14:00 Temperature Pulse Rate 114 H 112 H 112 H Respiratory Rate 16 18 23 Blood Pressure 116/79 122/84 Pulse Oximetry 99 99 99 03/13/18 15:00 03/13/18 16:00 03/13/18 17:00 Temperature 98.9 F Pulse Rate 103 H 102 H 116 H Respiratory Rate 15 22 21 Blood Pressure 126/87 120/82 132/79 Pulse Oximetry 99 99 98 03/13/18 17:53 03/13/18 18:00 Temperature Pulse Rate 107 H 106 H Respiratory Rate 22 Blood Pressure 128/82 Pulse Oximetry 98 Intake & Output 03/13/18 03/13/18 03/14/18 06:59 18:59 06:59 Intake Total 1430 / 1430 2800 / 2800 100 / 100 Output Total 225 / 225 200 / 200 Balance 1205 / 1205 2600 / 2600 100 / 100 Weight 66.3 kg Intake: IV 1050 / 1050 2000 / 2000 100 / 100 NS Inj 1,000 ML @ 100 mls/hr IV 1000 / 1000 .CONT .Q10H [facility] Rx#:[id number] D5W/LR + KCL 20 mEq Inj 1,000 1000 / 1000 900 / 900 100 / 100 ML @ 75 mls/hr IV.SIG .[id number] [facility] Rx#:[id number] Zosyn 2.25 GM Premix 2.25 gm In 50 / 50 100 / 100 50 ml @ 100 mls/hr IV.SIG Q8H [facility] Rx#:[id number] Oral 380 / 380 800 / 800 Output: Urine Amount (Catheter) 125 / 125 75 / 75 Indwelling Urethral Catheter 125 / 125 75 / 75 Urine Amount (Stoma) 100 / 100 125 / 125 Nephrostomy Tube Left 100 / 100 125 / 125 Other: Date of Last Bowel Movement 03/11/18 03/13/18 # Bowel Movements 0 Results - Lab Results 03/13/18 16:35 03/13/18 06:40 Most recent lab results Calcium 8.1 mg/dL (8.5-10.1) L 03/13/18 06:40 Assessment and Plan - Assessment (1) Acute kidney injury Code(s): N17.9 - Acute kidney failure, unspecified Status: Acute Plan: Patient seen and examined, agree with above. Patient with post left Nephrostomy, and has hematuria. Creatinine is increasing. Repeat CT abd. noted. D/W the patient for possible Dialysis if continue to get worse. Continue IVF. (2) Hypertension Code(s): I10 - Essential (primary) hypertension Status: Acute (3) Sepsis Code(s): A41.9 - Sepsis, unspecified organism Status: Acute (4) Hydronephrosis of left kidney Code(s): N13.30 - Unspecified hydronephrosis Status: Chronic Onset Date: Unknown (5) Anemia Code(s): D64.9 - Anemia, unspecified Status: Acute
--- NOTE | 2018-03-13 13:20 | CT ---
EXAM DATE: 03/13/2018 1:04 PM EST AGE/SEX: 37 years / Male INDICATIONS: Abnormal left kidney, hydronephrosis. CLINICAL DATA: This is the patient's initial encounter. Patient reports that signs and symptoms have been present for 1 day and indicates a pain score of 6/10. MEDICAL/SURGICAL HISTORY: Asthma. Seizures. Horseshoe kidney, pneumothorax. . Left nephrostom y tube. RADIATION DOSE: 6.64 CTDI (mGy) [place] [facility] [place]AST[place] 03/09/2018. . TECHNIQUE: Multiple contiguous axial images were obtained through the abdomen. Images were obtained using multiple row detector helical technique. Using automated exposure control and adjustment of the mA and/or kV according to patient size, radiation dose was kept as low as reasonably achievable to o btain optimal diagnostic quality images. DICOM format image data is available electronically for rev iew and comparison. FINDINGS: Imaging through the lung bases demonstrates small bilateral pleural effusions. These have slightly in creased in size when compared to previous examination. Evaluation of the liver demonstrates a 1.6 cm simple cyst within the right lobe. This is stable ronda red to previous examination. The spleen spleen, pancreas and adrenal glands are intact. Evaluation of the kidneys demonstrates the patient to have a horseshoe kidney. There is a nephrostomy tube in place within the left moiety. There is high density material filling the collecting system o f the left kidney. This would suggest there is hemorrhage within the collecting system. There are inf lammatory changes surrounding the left kidney and a small amount of free fluid within the abdomen. Th juan alberto are similar in appearance to the patient's examination of 03/09/2018. The abdominal aorta is normal in caliber. There is no retroperitoneal adenopathy. The loops of small large bowel are unremarkable. There is a Caldwell catheter present within the bladder. The visualized bony structures are grossly intact. CONCLUSION: 1. The examination demonstrates a horseshoe kidney. There is a nephrostomy tube in place on the left moiety. There is high density material filling a significantly dilated collecting system probably re presenting hemorrhage within the collecting system. The overall size of the kidney and size of the co llecting system is similar to a previous of 03/09/2018. There are inflammatory-appearing changes and f ree fluid in the peritoneal cavity. This appears similar to the patient's previous examination as george tejeda Electronically signed by: Sergey Arciniega MD Board Certified Radiologist 03/13/2018 1:19 PM EST
[2018-03-13] MEDS: Morphine Inj 4 MG/ML Vial IV.PUSH PRN ×3 (13:27→23:30)
[2018-03-13] MEDS: Senna/Docusate Sodium 8.6/50 MG Tablet PO SCH (13:29)
[2018-03-13 14:23] LABS: Bacteria,Urine Rare /hpf; Bilirubin,Urine Negative (Negative); Glucose,Urine (UA) 50 mg/dL (Negative); Leukocyte Esterase,Urine Negative (Negative); Nitrite,Urine Negative (Negative); Specific Gravity,Urine 1.011 (1.002-1.035)
[2018-03-13 14:25] LABS: Clarity,Urine Marked (Clear); Color,Urine Red (Yellw/Straw)
--- NOTE | 2018-03-13 16:02 | P.CONGI ---
History of Present Illness Consult date: 03/13/18 Consult reason: Dysphagia Chief complaint: Horseshoe Kidney with Hemorrhage History of Present Illness: 37 year old male hospitalized for hematuria with subsequent finding of a horseshoe kidney complains of dysphagia for 5 days duration. He describes his difficulty swallowing as "food getting stuck near the bottom and having to retch until it can be swallow," with dryer foods. He denies any dysphagia previously and has no difficulty with saliva or fluids. He complains of acid reflux with burning in his throat for 5-6 months that he has not taken any medications for but has tried staying away from irritating foods such as citrus. He reports loose bowel movements since being hospitalized 7 days previous. He denies nausea/vomiting, constipation, blood per rectum, abdominal pain. Social history is positive for 20 pack year smoking history with quitting in 2014. <Kaelyn Mcconnell - Last Filed: 03/13/18 15:53> Review of Systems All other systems reviewed negative except as stated in HPI <Kaelyn Mcconnell - Last Filed: 03/13/18 15:53> PMFSH - History History Provided By: Patient - Medical History Medical History: Medical History (Last Reviewed 03/13/18 @ 07:55 by Maeve Garcia) Asthma Seizures - Surgical History Surgical History: Surgical History (Last Reviewed 03/13/18 @ 07:55 by Maeve Garcia) Hx of tympanostomy tubes Pneumothorax - Family History Family History: Family History (Last Reviewed 03/12/18 @ 14:11 by Letitia Mulligan) Other Family history non-contributory - Tobacco History Second Hand Smoke Exposure: No Tobacco Use In Past 30 Days: No Smoking Status: Former smoker Tobacco Type: Cigarettes - Alcohol History How Often Do You Have a Drink Containing Alcohol: Never - Substance Use History Substance History: No History of Abuse - Travel History Recent Travel in the [place] Within the Last 8 Weeks: No Recent Travel Out of the Country Within the Last 8 Weeks: No - Immunization History Tetanus Immunization: Unsure Hx Influenza Vaccine This Season: No <Kaelyn Mcconnell - Last Filed: 03/13/18 15:53> - Medical History Medical History: Medical History (Last Reviewed 03/13/18 @ 07:55 by Maeve Garcia) Asthma Seizures - Surgical History Surgical History: Surgical History (Last Reviewed 03/13/18 @ 07:55 by Maeve Garcia) Hx of tympanostomy tubes Pneumothorax - Family History Family History: Family History (Last Reviewed 03/12/18 @ 14:11 by Letitia Mulligan) Other Family history non-contributory <Carol Ann Khan - Last Filed: 03/13/18 17:16> - Medical History Medical History: Medical History (Last Reviewed 03/13/18 @ 07:55 by Maeve Garcia) Asthma Seizures - Surgical History Surgical History: Surgical History (Last Reviewed 03/13/18 @ 07:55 by Maeve Garcia) Hx of tympanostomy tubes Pneumothorax - Family History Family History: Family History (Last Reviewed 03/12/18 @ 14:11 by Letitia Mulligan) Other Family history non-contributory <Wilfred Ortiz - Last Filed: 03/14/18 11:09> Medications and Allergies Active Medications: Active Medications Acetaminophen (Tylenol) 650 mg PO Q4H PRN PRN Reason: Temp > 100.4 Last Admin: 03/11/18 12:26 Dose: 650 mg Belladonna Alkaloids/Opium (B & O Supp) 60 mg RECTAL Q6HR PRN PRN Reason: BLADDER SPASM Hydralazine HCl (Apresoline) 25 mg PO TID [facility] Sodium Chloride (Ns Inj) 1,000 mls @ 100 mls/hr IV.CONT .Q10H [facility] Last Infusion: 03/13/18 15:27 Dose: Infused Vancomycin HCl 1,000 mg/ (Sodium Chloride) 250 mls @ 250 mls/hr IV.SIG Q12H [facility] Last Infusion: 03/11/18 21:26 Dose: Infused Dextrose/Lactated Ringer's (D5w/Lr Inj) 1,000 mls @ 100 mls/hr IV.CONT .Q10H [facility] Potassium Cl/Dextrose/Lact Ringer's (D5w/Lr + Kcl 20 Meq Inj) 1,000 mls @ 75 mls/hr IV.SIG .[id number] [facility] Last Admin: 03/13/18 02:10 Dose: Not Given Piperacillin/Tazobactam/Dextrose (Zosyn 2.25 Gm Premix) 2.25 gm in 50 mls @ 100 mls/hr IV.SIG Q8H [facility] Last Admin: 03/13/18 09:55 Dose: 100 mls/hr Metoprolol Tartrate (Lopressor) 12.5 mg PO BID [facility] Last Admin: 03/13/18 09:54 Dose: 12.5 mg Miscellaneous (Pill Splitter) 1 each OTHER UNSCH [facility] Morphine Sulfate (Morphine Inj) 1 mg IV.PUSH Q4H PRN PRN Reason: pain 1 to 10 Last Admin: 03/13/18 13:27 Dose: 1 mg Ondansetron HCl (Zofran Inj) 4 mg IV.PUSH Q6H PRN PRN Reason: NAUSEA OR VOMITING Last Admin: 03/11/18 13:35 Dose: 4 mg Pantoprazole Sodium (Protonix) 40 mg PO DAILY [facility] Polyethylene Glycol (Miralax) 17 gm PO DAILY PRN PRN Reason: Moderate-severe constipation Last Admin: 03/09/18 21:14 Dose: 17 gm Senna/Docusate Sodium (Allyssa-Colace) 1 tab PO BID [facility] Last Admin: 03/13/18 13:29 Dose: Not Given Sodium Chloride (Ns Flush) 2 ml IV.FLUSH BID [facility] Last Admin: 03/13/18 13:28 Dose: 2 ml Sodium Chloride (Ns Flush) 2 ml IV.FLUSH PRN PRN PRN Reason: FLUSH AFTER USING IV ACCESS <Kaelyn Mcconnell - Last Filed: 03/13/18 15:53> Active Medications: Active Medications Acetaminophen (Tylenol) 650 mg PO Q4H PRN PRN Reason: Temp > 100.4 Last Admin: 03/11/18 12:26 Dose: 650 mg Belladonna Alkaloids/Opium (B & O Supp) 60 mg RECTAL Q6HR PRN PRN Reason: BLADDER SPASM Hydralazine HCl (Apresoline) 25 mg PO TID [facility] Sodium Chloride (Ns Inj) 1,000 mls @ 100 mls/hr IV.CONT .Q10H [facility] Last Infusion: 03/13/18 15:27 Dose: Infused Vancomycin HCl 1,000 mg/ (Sodium Chloride) 250 mls @ 250 mls/hr IV.SIG Q12H [facility] Last Infusion: 03/11/18 21:26 Dose: Infused Dextrose/Lactated Ringer's (D5w/Lr Inj) 1,000 mls @ 100 mls/hr IV.CONT .Q10H [facility] Potassium Cl/Dextrose/Lact Ringer's (D5w/Lr + Kcl 20 Meq Inj) 1,000 mls @ 75 mls/hr IV.SIG .[id number] [facility] Last Admin: 03/13/18 02:10 Dose: Not Given Piperacillin/Tazobactam/Dextrose (Zosyn 2.25 Gm Premix) 2.25 gm in 50 mls @ 100 mls/hr IV.SIG Q8H [facility] Last Admin: 03/13/18 17:04 Dose: 100 mls/hr Metoprolol Tartrate (Lopressor) 12.5 mg PO BID [facility] Last Admin: 03/13/18 09:54 Dose: 12.5 mg Miscellaneous (Pill Splitter) 1 each OTHER UNSCH [facility] Morphine Sulfate (Morphine Inj) 1 mg IV.PUSH Q4H PRN PRN Reason: pain 1 to 10 Last Admin: 03/13/18 13:27 Dose: 1 mg Ondansetron HCl (Zofran Inj) 4 mg IV.PUSH Q6H PRN PRN Reason: NAUSEA OR VOMITING Last Admin: 03/11/18 13:35 Dose: 4 mg Pantoprazole Sodium (Protonix) 40 mg PO DAILY [facility] Last Admin: 03/13/18 17:06 Dose: 40 mg Polyethylene Glycol (Miralax) 17 gm PO DAILY PRN PRN Reason: Moderate-severe constipation Last Admin: 03/09/18 21:14 Dose: 17 gm Senna/Docusate Sodium (Allyssa-Colace) 1 tab PO BID [facility] Last Admin: 03/13/18 13:29 Dose: Not Given Sodium Chloride (Ns Flush) 2 ml IV.FLUSH BID [facility] Last Admin: 03/13/18 13:28 Dose: 2 ml Sodium Chloride (Ns Flush) 2 ml IV.FLUSH PRN PRN PRN Reason: FLUSH AFTER USING IV ACCESS <Carol Ann Khan - Last Filed: 03/13/18 17:16> Active Medications: Active Medications Acetaminophen (Tylenol) 650 mg PO Q4H PRN PRN Reason: Temp > 100.4 Last Admin: 03/11/18 12:26 Dose: 650 mg Belladonna Alkaloids/Opium (B & O Supp) 60 mg RECTAL Q6HR PRN PRN Reason: BLADDER SPASM Hydralazine HCl (Apresoline) 25 mg PO TID [facility] Sodium Chloride (Ns Inj) 1,000 mls @ 100 mls/hr IV.CONT .Q10H [facility] Last Infusion: 03/13/18 15:27 Dose: Infused Vancomycin HCl 1,000 mg/ (Sodium Chloride) 250 mls @ 250 mls/hr IV.SIG Q12H [facility] Last Infusion: 03/11/18 21:26 Dose: Infused Dextrose/Lactated Ringer's (D5w/Lr Inj) 1,000 mls @ 100 mls/hr IV.CONT .Q10H [facility] Potassium Cl/Dextrose/Lact Ringer's (D5w/Lr + Kcl 20 Meq Inj) 1,000 mls @ 75 mls/hr IV.SIG .[id number] [facility] Last Admin: 03/13/18 20:38 Dose: 75 mls/hr Piperacillin/Tazobactam/Dextrose (Zosyn 2.25 Gm Premix) 2.25 gm in 50 mls @ 100 mls/hr IV.SIG Q8H [facility] Last Admin: 03/14/18 08:51 Dose: 100 mls/hr Metoprolol Tartrate (Lopressor) 12.5 mg PO BID [facility] Last Admin: 03/14/18 08:51 Dose: 12.5 mg Miscellaneous (Pill Splitter) [address] [facility] Morphine Sulfate (Morphine Inj) 1 mg IV.PUSH Q4H PRN PRN Reason: pain 1 to 10 Last Admin: 03/14/18 09:11 Dose: 1 mg Ondansetron HCl (Zofran Inj) 4 mg IV.PUSH Q6H PRN PRN Reason: NAUSEA OR VOMITING Last Admin: 03/13/18 23:30 Dose: 4 mg Pantoprazole Sodium (Protonix) 40 mg PO DAILY [facility] Last Admin: 03/14/18 08:51 Dose: 40 mg Polyethylene Glycol (Miralax) 17 gm PO DAILY PRN PRN Reason: Moderate-severe constipation Last Admin: 03/09/18 21:14 Dose: 17 gm Senna/Docusate Sodium (Allyssa-Colace) 1 tab PO BID [facility] Last Admin: 03/13/18 13:29 Dose: Not Given Sodium Chloride (Ns Flush) 2 ml IV.FLUSH BID [facility] Last Admin: 03/13/18 13:28 Dose: 2 ml Sodium Chloride (Ns Flush) 2 ml IV.FLUSH PRN PRN PRN Reason: FLUSH AFTER USING IV ACCESS <Wilfred Ortiz - Last Filed: 03/14/18 11:09> Allergies Allergy/AdvReac Type Severity Reaction Status Date / Time meperidine [From Demerol] Allergy Hives Verified 03/09/18 04:22 Exam Vital signs: Vital Signs 03/12/18 16:00 03/12/18 17:00 03/12/18 18:00 Temperature 99.1 F Pulse Rate 119 H 119 H Respiratory Rate 20 20 Blood Pressure 123/76 112/64 123/76 Pulse Oximetry 98 98 03/12/18 19:00 03/12/18 20:00 03/12/18 21:00 Temperature 98 F Pulse Rate 119 H 120 H 112 H Respiratory Rate 19 22 20 Blood Pressure 114/65 118/66 116/66 Pulse Oximetry 97 97 97 03/12/18 22:00 03/12/18 23:00 03/13/18 00:00 Temperature 98.1 F Pulse Rate 127 H 107 H 107 H Respiratory Rate 18 17 18 Blood Pressure 109/59 L 107/66 100/65 Pulse Oximetry 97 97 97 03/13/18 01:00 03/13/18 02:00 03/13/18 03:00 Temperature Pulse Rate 107 H 107 H 108 H Respiratory Rate 18 19 17 Blood Pressure 104/62 109/67 104/66 Pulse Oximetry 97 96 95 03/13/18 04:00 03/13/18 05:00 03/13/18 06:00 Temperature 98.2 F Pulse Rate 103 H 105 H 101 H Respiratory Rate 13 15 13 Blood Pressure 111/70 105/70 104/69 Pulse Oximetry 97 95 96 03/13/18 07:00 03/13/18 08:00 03/13/18 09:00 Temperature 99.4 F Pulse Rate 101 H 111 H 114 H Respiratory Rate 19 21 20 Blood Pressure 108/70 112/75 Pulse Oximetry 97 98 03/13/18 10:00 03/13/18 11:00 03/13/18 12:00 Temperature Pulse Rate 128 H 114 H 115 H Respiratory Rate 20 21 20 Blood Pressure 135/83 138/78 131/76 Pulse Oximetry 99 98 98 03/13/18 13:00 03/13/18 13:32 03/13/18 14:00 Temperature Pulse Rate 114 H 112 H 112 H Respiratory Rate 16 18 23 Blood Pressure 116/79 122/84 Pulse Oximetry 99 99 99 03/13/18 15:00 Temperature Pulse Rate 103 H Respiratory Rate 15 Blood Pressure 126/87 Pulse Oximetry 99 Intake & Output 03/12/18 03/13/18 03/13/18 18:59 06:59 18:59 Intake Total 1760 / 1760 1430 / 1430 1000 / 1000 Output Total 270 / 270 225 / 225 Balance 1490 / 1490 1205 / 1205 1000 / 1000 Weight 66.3 kg Intake: IV 1100 / 1100 1050 / 1050 1000 / 1000 NS Inj 1,000 ML @ 100 mls/hr IV 1000 / 1000 .CONT .Q10H [facility] Rx#:[id number] D5W/LR + KCL 20 mEq Inj 1,000 1000 / 1000 1000 / 1000 ML @ 75 mls/hr IV.SIG .[id number] [facility] Rx#:[id number] Zosyn 2.25 GM Premix 2.25 gm In 50 / 50 50 ml @ 100 mls/hr IV.SIG Q8H [facility] Rx#:[id number] Zosyn 3.375 GM Premix 3.375 gm 100 / 100 In 50 ml @ 100 mls/hr IV.SIG Q6H [facility] Rx#:[id number] Oral 660 / 660 380 / 380 Output: Urine Amount (Catheter) 70 / 70 125 / 125 Indwelling Urethral Catheter 70 / 70 125 / 125 Urine Amount (Stoma) 100 / 100 Nephrostomy Tube Left 100 / 100 Wound Drainage 200 / 200 Left Posterior Chest 200 / 200 Other: Date of Last Bowel Movement 03/11/18 03/11/18 03/13/18 # Bowel Movements 0 Narrative: Patient lying comfortably in bed. - Constitutional mild distress - Routine HEENT Exam Head: Present: normocephalic, atraumatic Eye: Absent: conjunctival icterus, scleral injection ENT: Present: mucous membranes moist. Absent: dentition normal - Routine Neck Exam Present: supple - Routine Respiratory Exam Absent: accessory muscle use, decreased breath sounds, rales, respiratory distress, rhonchi, stridor, wheezes - Routine Cardiovascular Exam Present: RRR, S1, S2. Absent: murmur, gallop, rubs - Routine Abdominal Exam Present: soft, normoactive bowel sounds. Absent: tenderness, distended, rebound , guarding, organomegaly - Routine Extremities Exam Absent: cyanosis, edema - Routine Skin Exam Absent: cyanosis, erythema - Routine Neurological Exam Present: alert, oriented X3 <Kaelyn Mcconnell - Last Filed: 03/13/18 15:53> Vital signs: Vital Signs 03/12/18 18:00 03/12/18 19:00 03/12/18 20:00 Temperature 98 F Pulse Rate 119 H 120 H Respiratory Rate 19 22 Blood Pressure 123/76 114/65 118/66 Pulse Oximetry 97 97 03/12/18 21:00 03/12/18 22:00 03/12/18 23:00 Temperature Pulse Rate 112 H 127 H 107 H Respiratory Rate 20 18 17 Blood Pressure 116/66 109/59 L 107/66 Pulse Oximetry 97 97 97 03/13/18 00:00 03/13/18 01:00 03/13/18 02:00 Temperature 98.1 F Pulse Rate 107 H 107 H 107 H Respiratory Rate 18 18 19 Blood Pressure 100/65 104/62 109/67 Pulse Oximetry 97 97 96 03/13/18 03:00 03/13/18 04:00 03/13/18 05:00 Temperature 98.2 F Pulse Rate 108 H 103 H 105 H Respiratory Rate 17 13 15 Blood Pressure 104/66 111/70 105/70 Pulse Oximetry 95 97 95 03/13/18 06:00 03/13/18 07:00 03/13/18 08:00 Temperature 99.4 F Pulse Rate 101 H 101 H 111 H Respiratory Rate 13 19 21 Blood Pressure 104/69 108/70 112/75 Pulse Oximetry 96 97 98 03/13/18 09:00 03/13/18 10:00 03/13/18 11:00 Temperature Pulse Rate 114 H 128 H 114 H Respiratory Rate 20 20 21 Blood Pressure 135/83 138/78 Pulse Oximetry 99 98 03/13/18 12:00 03/13/18 13:00 03/13/18 13:32 Temperature Pulse Rate 115 H 114 H 112 H Respiratory Rate 20 16 18 Blood Pressure 131/76 116/79 Pulse Oximetry 98 99 99 03/13/18 14:00 03/13/18 15:00 03/13/18 16:00 Temperature 98.9 F Pulse Rate 112 H 103 H 102 H Respiratory Rate 23 15 22 Blood Pressure 122/84 126/87 120/82 Pulse Oximetry 99 99 99 03/13/18 17:00 Temperature Pulse Rate 116 H Respiratory Rate 21 Blood Pressure 132/79 Pulse Oximetry 98 Intake & Output 03/12/18 03/13/18 03/13/18 18:59 06:59 18:59 Intake Total 1760 / 1760 1430 / 1430 1050 / 1050 Output Total 270 / 270 225 / 225 Balance 1490 / 1490 1205 / 1205 1050 / 1050 Weight 66.3 kg Intake: IV 1100 / 1100 1050 / 1050 1050 / 1050 NS Inj 1,000 ML @ 100 mls/hr IV 1000 / 1000 .CONT .Q10H [facility] Rx#:[id number] D5W/LR + KCL 20 mEq Inj 1,000 1000 / 1000 1000 / 1000 ML @ 75 mls/hr IV.SIG .[id number] [facility] Rx#:[id number] Zosyn 2.25 GM Premix 2.25 gm In 50 / 50 50 / 50 50 ml @ 100 mls/hr IV.SIG Q8H [facility] Rx#:[id number] Zosyn 3.375 GM Premix 3.375 gm 100 / 100 In 50 ml @ 100 mls/hr IV.SIG Q6H [facility] Rx#:[id number] Oral 660 / 660 380 / 380 Output: Urine Amount (Catheter) 70 / 70 125 / 125 Indwelling Urethral Catheter 70 / 70 125 / 125 Urine Amount (Stoma) 100 / 100 Nephrostomy Tube Left 100 / 100 Wound Drainage 200 / 200 Left Posterior Chest 200 / 200 Other: Date of Last Bowel Movement 03/11/18 03/11/18 03/13/18 # Bowel Movements 0 <Carol Ann Khan - Last Filed: 03/13/18 17:16> Vital signs: Vital Signs 03/13/18 12:00 03/13/18 13:00 03/13/18 13:32 Temperature Pulse Rate 115 H 114 H 112 H Respiratory Rate 20 16 18 Blood Pressure 131/76 116/79 Pulse Oximetry 98 99 99 03/13/18 14:00 03/13/18 15:00 03/13/18 16:00 Temperature 98.9 F Pulse Rate 112 H 103 H 102 H Respiratory Rate 23 15 22 Blood Pressure 122/84 126/87 120/82 Pulse Oximetry 99 99 99 03/13/18 17:00 03/13/18 17:53 03/13/18 18:00 Temperature Pulse Rate 116 H 107 H 106 H Respiratory Rate 21 22 Blood Pressure 132/79 128/82 Pulse Oximetry 98 98 03/13/18 19:00 03/13/18 20:00 03/13/18 21:00 Temperature 98.0 F Pulse Rate 99 H 102 H 103 H Respiratory Rate 25 H 19 18 Blood Pressure 139/80 126/69 123/78 Pulse Oximetry 97 98 97 03/13/18 22:00 03/13/18 23:00 03/13/18 23:57 Temperature Pulse Rate 93 H 92 H 92 H Respiratory Rate 16 18 Blood Pressure 112/79 109/78 Pulse Oximetry 98 98 03/14/18 00:00 03/14/18 01:00 03/14/18 02:00 Temperature 97.9 F Pulse Rate 100 H 102 H 100 H Respiratory Rate 23 18 18 Blood Pressure 127/81 116/72 110/73 Pulse Oximetry 97 97 96 03/14/18 03:00 03/14/18 04:00 03/14/18 05:00 Temperature 98.0 F Pulse Rate 101 H 100 H 102 H Respiratory Rate 16 18 20 Blood Pressure 122/69 114/76 127/72 Pulse Oximetry 92 L 97 96 03/14/18 05:49 03/14/18 06:00 03/14/18 07:00 Temperature Pulse Rate 102 H 101 H 93 H Respiratory Rate 19 16 Blood Pressure 119/79 129/78 Pulse Oximetry 97 98 03/14/18 08:00 03/14/18 09:00 03/14/18 10:00 Temperature 99.1 F Pulse Rate 99 H 107 H 103 H Respiratory Rate 19 24 16 Blood Pressure 138/82 Pulse Oximetry 99 99 98 03/14/18 10:02 Temperature Pulse Rate 106 H Respiratory Rate 16 Blood Pressure 147/100 H Pulse Oximetry 98 Intake & Output 03/13/18 03/14/18 03/14/18 18:59 06:59 18:59 Intake Total 2800 / 2800 400 / 400 Output Total 200 / 200 1100 / 1100 Balance 2600 / 2600 -700 / -700 Weight 69.6 kg Intake: IV 1999 / 1999 150 / 150 NS Inj 1,000 ML @ 100 mls/hr IV 1000 / 1000 .CONT .Q10H [facility] Rx#:[id number] D5W/LR + KCL 20 mEq Inj 1,000 900 / 900 100 / 100 ML @ 75 mls/hr IV.SIG .[id number] [facility] Rx#:[id number] Zosyn 2.25 GM Premix 2.25 gm In 100 / 100 50 / 50 50 ml @ 100 mls/hr IV.SIG Q8H [facility] Rx#:[id number] Oral 800 / 800 250 / 250 Output: Urine 800 / 800 Urine Amount (Catheter) 75 / 75 50 / 50 Indwelling Urethral Catheter 75 / 75 50 / 50 Urine Amount (Stoma) 125 / 125 250 / 250 Nephrostomy Tube Left 125 / 125 250 / 250 Other: # Voids 1 Date of Last Bowel Movement 03/13/18 03/13/18 03/14/18 <Wilfred Ortiz - Last Filed: 03/14/18 11:09> Results - Labs CBC & Chem 7: 03/13/18 06:45 03/13/18 06:40 Labs: Laboratory Results - last 24 hr 03/12/18 03/12/18 03/13/18 17:03 17:08 06:40 WBC RBC Hgb 8.0 L Hct 22.5 L MCV MCH MCHC RDW Plt Count MPV Neut % (Auto) Lymph % (Auto) Marshall % (Auto) Eos % (Auto) Baso % (Auto) Neut # (Auto) Lymph # (Auto) Marshall # (Auto) Eos # (Auto) Baso # (Auto) WBC Differential Differential Comment Sodium 143 144 Potassium 3.2 L 3.4 L Chloride 111 H 112 H Carbon Dioxide 23.4 22.9 Anion Gap 9 9 BUN 19 H 22 H Creatinine 2.90 H 4.17 H Estimated GFR 25 L 16 L Random Glucose 119 H 115 H Calcium 8.0 L 8.1 L Total Bilirubin 0.7 AST 14 L ALT 13 Alkaline Phosphatase 33 L Total Protein 5.5 L D Albumin 2.0 L Urine Color Urine Clarity Urine pH Ur Specific [place] Urine Protein Urine Glucose (UA) Urine Ketones Urine Occult Blood Urine Nitrate Urine Bilirubin Urine Urobilinogen Ur Leukocyte Esterase Urine RBC Urine WBC Urine Bacteria Micro UA Comment Ur Microscopic Review Urine Culture Comments Urine Eosinophils Urine Osmolality Ur Random Sodium Random Vancomycin 03/13/18 03/13/18 03/13/18 06:40 06:45 13:15 WBC 9.1 RBC 2.59 L Hgb 7.6 L Hct 22.3 L MCV 86.0 MCH 29.5 MCHC 34.3 RDW 15.7 Plt Count 220 MPV 8.2 Neut % (Auto) 75.1 H Lymph % (Auto) 9.2 Marshall % (Auto) 13.4 H Eos % (Auto) 1.4 Baso % (Auto) 0.9 Neut # (Auto) 6.9 Lymph # (Auto) 0.8 L Marshall # (Auto) 1.2 H Eos # (Auto) 0.1 Baso # (Auto) 0.1 WBC Differential . Differential Comment Auto diff final Sodium Potassium Chloride Carbon Dioxide Anion Gap BUN Creatinine Estimated GFR Random Glucose Calcium Total Bilirubin AST ALT Alkaline Phosphatase Total Protein Albumin Urine Color Urine Clarity Urine pH Ur Specific [place] Urine Protein Urine Glucose (UA) Urine Ketones Urine Occult Blood Urine Nitrate Urine Bilirubin Urine Urobilinogen Ur Leukocyte Esterase Urine RBC Urine WBC Urine Bacteria Micro UA Comment Ur Microscopic Review Urine Culture Comments Urine Eosinophils None seen Urine Osmolality Ur Random Sodium Random Vancomycin 24.0 03/13/18 03/13/18 03/13/18 13:15 13:15 13:15 WBC RBC Hgb Hct MCV MCH MCHC RDW Plt Count MPV Neut % (Auto) Lymph % (Auto) Marshall % (Auto) Eos % (Auto) Baso % (Auto) Neut # (Auto) Lymph # (Auto) Marshall # (Auto) Eos # (Auto) Baso # (Auto) WBC Differential Differential Comment Sodium Potassium Chloride Carbon Dioxide Anion Gap BUN Creatinine Estimated GFR Random Glucose Calcium Total Bilirubin AST ALT Alkaline Phosphatase Total Protein Albumin Urine Color Red Urine Clarity Marked H Urine pH 8.0 Ur Specific [place] 1.011 Urine Protein 100 H Urine Glucose (UA) 50 Urine Ketones Negative Urine Occult Blood Large H Urine Nitrate Negative Urine Bilirubin Negative Urine Urobilinogen Less than 2 Ur Leukocyte Esterase Negative Urine RBC Urine WBC 34 H Urine Bacteria Rare H Micro UA Comment Culture indicated Ur Microscopic Review Not Reportable Urine Culture Comments Culture indicated Urine Eosinophils Urine Osmolality 265 L Ur Random Sodium 101 Random Vancomycin - Imaging Impressions Abdomen/Bladder Ultrasound 03/13/18 00:00 CONCLUSION: 1. Markedly abnormal left kidney with nephrostomy tube in place. 2. Repeat noncontrast CT scan may be of benefit. Abdomen/Pelvis CT 03/13/18 00:00 CONCLUSION: 1. The examination demonstrates a horseshoe kidney. There is a nephrostomy tube in place on the left moiety. There is high density material filling a significantly dilated collecting system probably representing hemorrhage within the collecting system. The overall size of the kidney and size of the collecting system is similar to a previous of 03/09/2018. There are inflammatory- appearing changes and free fluid in the peritoneal cavity. This appears similar to the patient's previous examination as well. <Kaelyn Mcconnell - Last Filed: 03/13/18 15:53> - Labs CBC & Chem 7: 03/13/18 06:45 03/13/18 06:40 Labs: Laboratory Results - last 24 hr 03/12/18 03/12/18 03/13/18 17:03 17:08 06:40 WBC RBC Hgb 8.0 L Hct 22.5 L MCV MCH MCHC RDW Plt Count MPV Neut % (Auto) Lymph % (Auto) Marshall % (Auto) Eos % (Auto) Baso % (Auto) Neut # (Auto) Lymph # (Auto) Marshall # (Auto) Eos # (Auto) Baso # (Auto) WBC Differential Differential Comment Sodium 143 144 Potassium 3.2 L 3.4 L Chloride 111 H 112 H Carbon Dioxide 23.4 22.9 Anion Gap 9 9 BUN 19 H 22 H Creatinine 2.90 H 4.17 H Estimated GFR 25 L 16 L Random Glucose 119 H 115 H Calcium 8.0 L 8.1 L Total Bilirubin 0.7 AST 14 L ALT 13 Alkaline Phosphatase 33 L Total Protein 5.5 L D Albumin 2.0 L Urine Color Urine Clarity Urine pH Ur Specific [place] Urine Protein Urine Glucose (UA) Urine Ketones Urine Occult Blood Urine Nitrate Urine Bilirubin Urine Urobilinogen Ur Leukocyte Esterase Urine RBC Urine WBC Urine Bacteria Micro UA Comment Ur Microscopic Review Urine Culture Comments Urine Eosinophils Urine Osmolality Ur Random Sodium Random Vancomycin 03/13/18 03/13/18 03/13/18 06:40 06:45 13:15 WBC 9.1 RBC 2.59 L Hgb 7.6 L Hct 22.3 L MCV 86.0 MCH 29.5 MCHC 34.3 RDW 15.7 Plt Count 220 MPV 8.2 Neut % (Auto) 75.1 H Lymph % (Auto) 9.2 Marshall % (Auto) 13.4 H Eos % (Auto) 1.4 Baso % (Auto) 0.9 Neut # (Auto) 6.9 Lymph # (Auto) 0.8 L Marshall # (Auto) 1.2 H Eos # (Auto) 0.1 Baso # (Auto) 0.1 WBC Differential . Differential Comment Auto diff final Sodium Potassium Chloride Carbon Dioxide Anion Gap BUN Creatinine Estimated GFR Random Glucose Calcium Total Bilirubin AST ALT Alkaline Phosphatase Total Protein Albumin Urine Color Urine Clarity Urine pH Ur Specific [place] Urine Protein Urine Glucose (UA) Urine Ketones Urine Occult Blood Urine Nitrate Urine Bilirubin Urine Urobilinogen Ur Leukocyte Esterase Urine RBC Urine WBC Urine Bacteria Micro UA Comment Ur Microscopic Review Urine Culture Comments Urine Eosinophils None seen Urine Osmolality Ur Random Sodium Random Vancomycin 24.0 03/13/18 03/13/18 03/13/18 13:15 13:15 13:15 WBC RBC Hgb Hct MCV MCH MCHC RDW Plt Count MPV Neut % (Auto) Lymph % (Auto) Marshall % (Auto) Eos % (Auto) Baso % (Auto) Neut # (Auto) Lymph # (Auto) Marshall # (Auto) Eos # (Auto) Baso # (Auto) WBC Differential Differential Comment Sodium Potassium Chloride Carbon Dioxide Anion Gap BUN Creatinine Estimated GFR Random Glucose Calcium Total Bilirubin AST ALT Alkaline Phosphatase Total Protein Albumin Urine Color Red Urine Clarity Marked H Urine pH 8.0 Ur Specific [place] 1.011 Urine Protein 100 H Urine Glucose (UA) 50 Urine Ketones Negative Urine Occult Blood Large H Urine Nitrate Negative Urine Bilirubin Negative Urine Urobilinogen Less than 2 Ur Leukocyte Esterase Negative Urine RBC Urine WBC 34 H Urine Bacteria Rare H Micro UA Comment Culture indicated Ur Microscopic Review Not Reportable Urine Culture Comments Culture indicated Urine Eosinophils Urine Osmolality 265 L Ur Random Sodium 101 Random Vancomycin - Imaging Impressions Abdomen/Bladder Ultrasound 03/13/18 00:00 CONCLUSION: 1. Markedly abnormal left kidney with nephrostomy tube in place. 2. Repeat noncontrast CT scan may be of benefit. Abdomen/Pelvis CT 03/13/18 00:00 CONCLUSION: 1. The examination demonstrates a horseshoe kidney. There is a nephrostomy tube in place on the left moiety. There is high density material filling a significantly dilated collecting system probably representing hemorrhage within the collecting system. The overall size of the kidney and size of the collecting system is similar to a previous of 03/09/2018. There are inflammatory- appearing changes and free fluid in the peritoneal cavity. This appears similar to the patient's previous examination as well. <Carol Ann Khan - Last Filed: 03/13/18 17:16> - Labs CBC & Chem 7: 03/13/18 16:35 03/14/18 05:57 Labs: Laboratory Results - last 24 hr 03/13/18 03/13/18 03/13/18 06:40 13:15 13:15 Hgb Hct Sodium Potassium Chloride Carbon Dioxide Anion Gap BUN Creatinine Estimated GFR Random Glucose Calcium Phosphorus Magnesium Urine Color Urine Clarity Urine pH Ur Specific [place] Urine Protein Urine Glucose (UA) Urine Ketones Urine Occult Blood Urine Nitrate Urine Bilirubin Urine Urobilinogen Ur Leukocyte Esterase Urine RBC Urine WBC Urine Bacteria Micro UA Comment Ur Microscopic Review Urine Culture Comments Urine Eosinophils None seen Urine Osmolality 265 L Ur Random Sodium Random Vancomycin 24.0 03/13/18 03/13/18 03/13/18 13:15 13:15 16:35 Hgb 8.3 L Hct 23.9 L Sodium Potassium Chloride Carbon Dioxide Anion Gap BUN Creatinine Estimated GFR Random Glucose Calcium Phosphorus Magnesium Urine Color Red Urine Clarity Marked H Urine pH 8.0 Ur Specific [place] 1.011 Urine Protein 100 H Urine Glucose (UA) 50 Urine Ketones Negative Urine Occult Blood Large H Urine Nitrate Negative Urine Bilirubin Negative Urine Urobilinogen Less than 2 Ur Leukocyte Esterase Negative Urine RBC Urine WBC 34 H Urine Bacteria Rare H Micro UA Comment Culture indicated Ur Microscopic Review Not Reportable Urine Culture Comments Culture indicated Urine Eosinophils Urine Osmolality Ur Random Sodium 101 Random Vancomycin 03/14/18 05:57 Hgb Hct Sodium 144 Potassium 3.4 L Chloride 112 H Carbon Dioxide 23.2 Anion Gap 9 BUN 30 H Creatinine 5.71 H Estimated GFR 11 L Random Glucose 103 Calcium 8.1 L Phosphorus 2.7 Magnesium 1.9 Urine Color Urine Clarity Urine pH Ur Specific [place] Urine Protein Urine Glucose (UA) Urine Ketones Urine Occult Blood Urine Nitrate Urine Bilirubin Urine Urobilinogen Ur Leukocyte Esterase Urine RBC Urine WBC Urine Bacteria Micro UA Comment Ur Microscopic Review Urine Culture Comments Urine Eosinophils Urine Osmolality Ur Random Sodium Random Vancomycin - Imaging Impressions Abdomen/Pelvis CT 03/13/18 00:00 CONCLUSION: 1. The examination demonstrates a horseshoe kidney. There is a nephrostomy tube in place on the left moiety. There is high density material filling a significantly dilated collecting system probably representing hemorrhage within the collecting system. The overall size of the kidney and size of the collecting system is similar to a previous of 03/09/2018. There are inflammatory- appearing changes and free fluid in the peritoneal cavity. This appears similar to the patient's previous examination as well. <Wilfred Ortiz - Last Filed: 03/14/18 11:09> Assessment and Plan - Plan 37 year old male with 20 pack-year history of smoking and acid reflux complains of new onset dysphagia for 5 days duration. Due to history, esophageal dysphagia caused by esophagitis (eosinophilic vs hanna's vs other) or stricture likely. - Barium pill swallow study - PPIs and liquid sulfacrate ordered - consider EGD to follow Patient seen and discussed with Dr Ortiz, GI Kaelyn Mcconnell MS4 <Kaelyn Mcconnell - Last Filed: 03/13/18 15:53> - Plan Addendum to plan -Diet as tolerated -Barium swallow -Pantoprazole 40 mg p.o. daily -May consider EGD pending results of barium swallow -Supportive care -Further recommendations to follow This patient has been seen by myself and Dr. Ortiz and this note is written on his behalf - Attending Attestation Dr. Ortiz <Carol Ann Khan - Last Filed: 03/13/18 17:16> - Attending Attestation I have seen and examined the patient and reviewed the patients care with the HEALTH EDUCATION SPECIALIST and medical student. I agree with the above assessment and recommendations as documented above. <Wilfred Ortiz - Last Filed: 03/14/18 11:09>
[2018-03-13 17:31] LABS: Hematocrit 23.9 % (39.0-51.0); Hemoglobin 8.3 gm/dL (13.0-17.0)
[2018-03-14 06:46] LABS: Calcium 8.1 mg/dL (8.5-10.1); Carbon Dioxide 23.2 meq/L (21.0-32.0); Magnesium 1.9 mg/dL (1.5-2.5); Phosphorus 2.7 mg/dL (2.5-4.9); Potassium 3.4 meq/L (3.5-5.1)
[2018-03-14] MEDS: Metoprolol Tartrate 25 MG Tablet PO SCH ×2 (08:51→21:19)
[2018-03-14] MEDS: Piperacil/Tazo 2.25 GM Premix 2.25 GM/50 ML PIGGYBACK IV.SIG SCH ×3 (08:51→23:41)
--- NOTE | 2018-03-14 08:57 | P.PNURO ---
Subjective Patient symptoms today: Pt seen and examined. Feels ok. No complaints. Objective Vital Signs: Vital Signs 03/13/18 09:00 03/13/18 10:00 03/13/18 11:00 Temperature Pulse Rate 114 H 128 H 114 H Respiratory Rate 20 20 21 Blood Pressure 135/83 138/78 Pulse Oximetry 99 98 03/13/18 12:00 03/13/18 13:00 03/13/18 13:32 Temperature Pulse Rate 115 H 114 H 112 H Respiratory Rate 20 16 18 Blood Pressure 131/76 116/79 Pulse Oximetry 98 99 99 03/13/18 14:00 03/13/18 15:00 03/13/18 16:00 Temperature 98.9 F Pulse Rate 112 H 103 H 102 H Respiratory Rate 23 15 22 Blood Pressure 122/84 126/87 120/82 Pulse Oximetry 99 99 99 03/13/18 17:00 03/13/18 17:53 03/13/18 18:00 Temperature Pulse Rate 116 H 107 H 106 H Respiratory Rate 21 22 Blood Pressure 132/79 128/82 Pulse Oximetry 98 98 03/13/18 19:00 03/13/18 20:00 03/13/18 21:00 Temperature 98.0 F Pulse Rate 99 H 102 H 103 H Respiratory Rate 25 H 19 18 Blood Pressure 139/80 126/69 123/78 Pulse Oximetry 97 98 97 03/13/18 22:00 03/13/18 23:00 03/13/18 23:57 Temperature Pulse Rate 93 H 92 H 92 H Respiratory Rate 16 18 Blood Pressure 112/79 109/78 Pulse Oximetry 98 98 03/14/18 00:00 03/14/18 01:00 03/14/18 02:00 Temperature 97.9 F Pulse Rate 100 H 102 H 100 H Respiratory Rate 23 18 18 Blood Pressure 127/81 116/72 110/73 Pulse Oximetry 97 97 96 03/14/18 03:00 03/14/18 04:00 03/14/18 05:00 Temperature 98.0 F Pulse Rate 101 H 100 H 102 H Respiratory Rate 16 18 20 Blood Pressure 122/69 114/76 127/72 Pulse Oximetry 92 L 97 96 03/14/18 05:49 03/14/18 06:00 Temperature Pulse Rate 102 H 101 H Respiratory Rate 19 Blood Pressure 119/79 Pulse Oximetry 97 Intake & Output 03/13/18 03/14/18 03/14/18 18:59 06:59 18:59 Intake Total 2800 / 2800 400 / 400 Output Total 200 / 200 1100 / 1100 Balance 2600 / 2600 -700 / -700 Weight 69.6 kg Intake: IV 2000 / 2000 150 / 150 NS Inj 1,000 ML @ 100 mls/hr IV 1000 / 1000 .CONT .Q10H [facility] Rx#:[id number] D5W/LR + KCL 20 mEq Inj 1,000 900 / 900 100 / 100 ML @ 75 mls/hr IV.SIG .[id number] [facility] Rx#:[id number] Zosyn 2.25 GM Premix 2.25 gm In 100 / 100 50 / 50 50 ml @ 100 mls/hr IV.SIG Q8H [facility] Rx#:[id number] Oral 800 / 800 250 / 250 Output: Urine 800 / 800 Urine Amount (Catheter) 75 / 75 50 / 50 Indwelling Urethral Catheter 75 / 75 50 / 50 Urine Amount (Stoma) 125 / 125 250 / 250 Nephrostomy Tube Left 125 / 125 250 / 250 Other: # Voids 1 Date of Last Bowel Movement 03/13/18 03/13/18 Result Diagrams: 03/13/18 16:35 03/14/18 05:57 Imaging: Impressions Abdomen/Bladder Ultrasound 03/13/18 00:00 CONCLUSION: 1. Markedly abnormal left kidney with nephrostomy tube in place. 2. Repeat noncontrast CT scan may be of benefit. Abdomen/Pelvis CT 03/13/18 00:00 CONCLUSION: 1. The examination demonstrates a horseshoe kidney. There is a nephrostomy tube in place on the left moiety. There is high density material filling a significantly dilated collecting system probably representing hemorrhage within the collecting system. The overall size of the kidney and size of the collecting system is similar to a previous of 03/09/2018. There are inflammatory- appearing changes and free fluid in the peritoneal cavity. This appears similar to the patient's previous examination as well. Medications and IVs: Active Medications Generic Name Dose Route Start Last Admin Trade Name Freq PRN Reason Stop Dose Admin Acetaminophen 650 mg 03/07/18 23:05 03/11/18 12:26 Tylenol PO 650 mg Q4H PRN Administration Temp > 100.4 Belladonna Alkaloids/Opium 60 mg 03/10/18 15:43 B & O Supp RECTAL Q6HR PRN BLADDER SPASM Hydralazine HCl 25 mg 03/12/18 19:23 Apresoline PO TID [facility] Sodium Chloride 1,000 mls @ 100 mls/hr 03/08/18 00:40 03/13/18 15:27 Ns Inj IV.CONT Infused .Q10H [facility] Infusion Vancomycin HCl 1,000 mg/ 250 mls @ 250 mls/hr 03/10/18 09:00 03/11/18 21:26 Sodium Chloride IV.SIG Infused Q12H [facility] Infusion Dextrose/Lactated Ringer's 1,000 mls @ 100 mls/hr 03/12/18 07:37 D5w/Lr Inj IV.CONT .Q10H [facility] Potassium Cl/Dextrose/Lact Ringer's 1,000 mls @ 75 mls/hr 03/12/18 09:00 05/26 20:38 D5w/Lr + Kcl 20 Meq Inj IV.SIG 75 mls/hr .[id number] [facility] Administration Piperacillin/Tazobactam/Dextrose 2.25 gm in 50 mls @ 100 mls/hr 03/13/18 00: 00 03/14/18 08:51 Zosyn 2.25 Gm Premix IV.SIG 100 mls/hr Q8H [facility] Administration Metoprolol Tartrate 12.5 mg 03/11/18 09:00 03/14/18 08:51 Lopressor PO 12.5 mg BID [facility] Administration Miscellaneous 1 each 03/11/18 10:00 Pill Splitter OTHER UNSCH [facility] Morphine Sulfate 1 mg 03/13/18 08:58 03/13/18 23:30 Morphine Inj IV.PUSH 1 mg Q4H PRN Administration pain 1 to 10 Ondansetron HCl 4 mg 03/07/18 23:05 03/13/18 23:30 Zofran Inj IV.PUSH 4 mg Q6H PRN Administration NAUSEA OR VOMITING Pantoprazole Sodium 40 mg 03/13/18 15:45 03/14/18 08:51 Protonix PO 40 mg DAILY [facility] Administration Polyethylene Glycol 17 gm 03/09/18 14:24 03/09/18 21:14 Miralax PO 17 gm DAILY PRN Administration Moderate-severe constipation Senna/Docusate Sodium 1 tab 03/09/18 21:00 03/13/18 13:29 Allyssa-Colace PO Not Given BID [facility] Sodium Chloride 2 ml 03/08/18 09:00 03/13/18 13:28 Ns Flush IV.FLUSH 2 ml BID [facility] Administration Sodium Chloride 2 ml 03/07/18 23:05 Ns Flush IV.FLUSH PRN PRN FLUSH AFTER USING IV ACCESS Objective Remarks: CV: sinus tach Abd:soft, mild distension; no rebound Price: old dark blood Ext: neg C/C/E 03/10 CV: sinus tach Abd:soft,less tenderness and distension Price: blood tinged PCNT: bloody 03/10 16:00: SP pains. Bladder not palpable. No SP tenderness. Abd: now non tender LLQ. Bloody urine via nephrostomy, no clots. Bloody urine via price catheter, no clots. 03/11: Scant urine output via Nephrostomy tube. It may not be draining, will wait and see. Fairly good urine output via price catheter. Urine dark blood tinged, no clots. BP varies high to normal, Pulse varies, temp 99. 03/12: See "Subjective" for the Objective. Suspect Vancomycin toxicity causing deterioration in kidney function and decreased urine output. N tube draining dark burgundy urine. PLAN: Dr. Little following the labs. N tube irrigation by IR if needed. 03/13 Abd:soft,nt,nd Left PNCT with blood Price: hematuria 03/14 Abd:soft,nt,nd Left PCNT: bloody Price: blood tinged Assessment and Plan - Assessment (1) Sepsis due to urinary tract infection Code(s): A41.9 - Sepsis, unspecified organism; N39.0 - Urinary tract infection, site not specified Status: Acute Onset Date: ~03/07/18 (2) Hydronephrosis of left kidney Code(s): N13.30 - Unspecified hydronephrosis Status: Chronic (3) 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 Back up plan is to try to place a urinary stent cystoscopically in the OR. However, there is a great possibility that the presumed UPJ stenosis will prevent passage of guide wires and stent. 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 Discussed with Dr. Little. 03/11: N tube may or may not be draining. Sepsis improving. Still having bladder spasms, receiving Morphine. PLAN: Continue same. 03/12 See "Subjective", "Objective". 03/13 37 y.o male with sepsis and h/o horseshoe kidney s/p PCNT placement with hematuria Continue supportive measures for now Transfuse PRBC's today if repeat Hgb is below 8 Monitor u/o; avoid nephrotoxins Will follow. 03/14 37 y.o male with sepsis and horseshoe kidney s/p PCNT with hematuria and ARF Hgb stablized at 8.3 this AM. Creatinine rising to 5.7; u/o dropping Await Nephrology input Monitor u/o Continue conservative measures for now.
[2018-03-14] MEDS: Senna/Docusate Sodium 8.6/50 MG Tablet PO SCH ×2 (09:00→21:20)
[2018-03-14] MEDS: Morphine Inj 4 MG/ML Vial IV.PUSH PRN ×2 (09:11→21:21)
--- NOTE | 2018-03-14 11:19 | FL ---
EXAM DATE: 03/14/2018 10:48 AM EST AGE/SEX: 37 years / Male INDICATIONS: Evaluate for dysphagia. CLINICAL DATA: This is the patient's subsequent encounter. Patient reports that signs and symptoms h ave been present for 4 - 6 days and indicates a pain score of 0/10. MEDICAL/SURGICAL HISTORY: . Asthma. Seizure. Horseshoe kidney. . Pneumothorax. . Tympanostomy tube. COMPARISON: No prior exams available for comparison. FLUORO TIME: .9 IMAGE COUNT: 0 RADIATION DOSE: 153.5 DAP FINDINGS: A modified barium swallow was performed with speech pathology. Patient was given a variety of liquids to swallow. For a full detailed report, see report by the speech pathologist. CONCLUSION: Unremarkable modified swallow. See speech pathology report. Electronically signed by: Kain Dixon MD Board Certified Radiologist 03/14/2018 11:17 AM EST
--- NOTE | 2018-03-14 12:18 | P.PNGI ---
Subjective Interval history: Patient awake and alert Post barium swallow <Carol Ann Khan - Last Filed: 03/14/18 12:10> Physical Exam Vital signs: Vital Signs 03/13/18 13:00 03/13/18 13:32 03/13/18 14:00 Temperature Pulse Rate 114 H 112 H 112 H Respiratory Rate 16 18 23 Blood Pressure 116/79 122/84 Pulse Oximetry 99 99 99 03/13/18 15:00 03/13/18 16:00 03/13/18 17:00 Temperature 98.9 F Pulse Rate 103 H 102 H 116 H Respiratory Rate 15 22 21 Blood Pressure 126/87 120/82 132/79 Pulse Oximetry 99 99 98 03/13/18 17:53 03/13/18 18:00 03/13/18 19:00 Temperature Pulse Rate 107 H 106 H 99 H Respiratory Rate 22 25 H Blood Pressure 128/82 139/80 Pulse Oximetry 98 97 03/13/18 20:00 03/13/18 21:00 03/13/18 22:00 Temperature 98.0 F Pulse Rate 102 H 103 H 93 H Respiratory Rate 19 18 16 Blood Pressure 126/69 123/78 112/79 Pulse Oximetry 98 97 98 03/13/18 23:00 03/13/18 23:57 03/14/18 00:00 Temperature 97.9 F Pulse Rate 92 H 92 H 100 H Respiratory Rate 18 23 Blood Pressure 109/78 127/81 Pulse Oximetry 98 97 03/14/18 01:00 03/14/18 02:00 03/14/18 03:00 Temperature Pulse Rate 102 H 100 H 101 H Respiratory Rate 18 18 16 Blood Pressure 116/72 110/73 122/69 Pulse Oximetry 97 96 92 L 03/14/18 04:00 03/14/18 05:00 03/14/18 05:49 Temperature 98.0 F Pulse Rate 100 H 102 H 102 H Respiratory Rate 18 20 Blood Pressure 114/76 127/72 Pulse Oximetry 97 96 03/14/18 06:00 03/14/18 07:00 03/14/18 08:00 Temperature 99.1 F Pulse Rate 101 H 93 H 99 H Respiratory Rate 19 16 19 Blood Pressure 119/79 129/78 138/82 Pulse Oximetry 97 98 99 03/14/18 09:00 03/14/18 10:00 03/14/18 10:02 Temperature Pulse Rate 107 H 103 H 106 H Respiratory Rate 24 16 16 Blood Pressure 147/100 H Pulse Oximetry 99 98 98 Intake & Output 03/13/18 03/14/18 03/14/18 18:59 06:59 18:59 Intake Total 2800 / 2800 400 / 400 Output Total 200 / 200 1100 / 1100 Balance 2600 / 2600 -700 / -700 Weight 69.6 kg Intake: IV 2000 / 1999 150 / 150 NS Inj 1,000 ML @ 100 mls/hr IV 1000 / 1000 .CONT .Q10H [facility] Rx#:[id number] D5W/LR + KCL 20 mEq Inj 1,000 900 / 900 100 / 100 ML @ 75 mls/hr IV.SIG .[id number] [facility] Rx#:[id number] Zosyn 2.25 GM Premix 2.25 gm In 100 / 100 50 / 50 50 ml @ 100 mls/hr IV.SIG Q8H [facility] Rx#:[id number] Oral 800 / 800 250 / 250 Output: Urine 800 / 800 Urine Amount (Catheter) 75 / 75 50 / 50 Indwelling Urethral Catheter 75 / 75 50 / 50 Urine Amount (Stoma) 125 / 125 250 / 250 Nephrostomy Tube Left 125 / 125 250 / 250 Other: # Voids 1 Date of Last Bowel Movement 03/13/18 03/13/18 03/14/18 - Constitutional no acute distress, thin, chronically ill appearing, cooperative - Routine HEENT Exam Head: Present: normocephalic ENT: Present: mucous membranes moist - Routine Respiratory Exam Present: CTA bilaterally. Absent: accessory muscle use - Routine Abdominal Exam Present: soft, normoactive bowel sounds - Routine Exam Comments: Nephrostomy tube Caldwell catheter indwelling - Routine Skin Exam Present: dry, warm - Routine Neurological Exam Present: alert, oriented X3 - Routine Psychiatric Exam Present: normal affect, cooperative - Urinary Catheter Management Indwelling Urethral Catheter Cath placed during this visit: yes Reason for continuing: Other continuation reason Insertion date: 03/09/18 <Carol Ann Khan - Last Filed: 03/14/18 12:10> Vital signs: Vital Signs 03/14/18 09:00 03/14/18 10:00 03/14/18 10:02 Temperature Pulse Rate 107 H 102 H 106 H Respiratory Rate 24 16 16 Blood Pressure 147/100 H Pulse Oximetry 99 98 98 03/14/18 10:06 03/14/18 12:00 03/14/18 12:19 Temperature Pulse Rate 112 H 110 H Respiratory Rate 20 Blood Pressure 160/100 H Pulse Oximetry 03/14/18 12:21 03/14/18 13:00 03/14/18 13:18 Temperature 98.5 F Pulse Rate 100 H 94 H Respiratory Rate 16 16 Blood Pressure 131/90 Pulse Oximetry 99 98 98 03/14/18 14:00 03/14/18 14:18 03/14/18 15:00 Temperature Pulse Rate 94 H 97 H 101 H Respiratory Rate 17 18 21 Blood Pressure 151/91 H Pulse Oximetry 97 98 99 03/14/18 15:18 03/14/18 16:00 03/14/18 16:18 Temperature 99.0 F Pulse Rate 98 H 98 H 94 H Respiratory Rate 21 19 18 Blood Pressure 140/91 H 136/85 Pulse Oximetry 98 97 98 03/14/18 17:00 03/14/18 17:18 03/14/18 18:00 Temperature Pulse Rate 96 H 101 H 90 Respiratory Rate 18 16 17 Blood Pressure 123/81 Pulse Oximetry 98 98 98 03/14/18 18:18 03/14/18 19:00 03/14/18 19:18 Temperature Pulse Rate 91 H 88 91 H Respiratory Rate 17 22 20 Blood Pressure 136/75 125/82 Pulse Oximetry 98 98 97 03/14/18 20:00 03/14/18 20:18 03/14/18 21:00 Temperature 99.5 F Pulse Rate 88 88 91 H Respiratory Rate 20 20 20 Blood Pressure 140/84 Pulse Oximetry 97 95 95 03/14/18 21:18 03/14/18 22:00 03/14/18 22:18 Temperature Pulse Rate 91 H 88 94 H Respiratory Rate 14 18 18 Blood Pressure 118/75 142/74 H Pulse Oximetry 96 96 97 03/14/18 23:00 03/14/18 23:18 03/15/18 00:00 Temperature 99.4 F Pulse Rate 89 82 83 Respiratory Rate 17 18 14 Blood Pressure 118/77 Pulse Oximetry 97 96 96 03/15/18 00:18 03/15/18 01:00 03/15/18 01:18 Temperature Pulse Rate 82 83 84 Respiratory Rate 15 16 14 Blood Pressure 126/79 125/76 Pulse Oximetry 97 97 97 03/15/18 02:00 03/15/18 02:18 03/15/18 03:00 Temperature Pulse Rate 98 H 110 H 87 Respiratory Rate 19 39 H 13 Blood Pressure 157/88 H Pulse Oximetry 97 97 03/15/18 03:18 03/15/18 04:00 03/15/18 04:18 Temperature 98.9 F Pulse Rate 85 97 H 105 H Respiratory Rate 16 19 29 H Blood Pressure 132/86 140/61 Pulse Oximetry 97 98 03/15/18 05:00 03/15/18 05:18 03/15/18 06:00 Temperature Pulse Rate 89 84 84 Respiratory Rate 16 15 20 Blood Pressure 146/83 H Pulse Oximetry 97 97 97 03/15/18 06:18 Temperature Pulse Rate 82 Respiratory Rate 16 Blood Pressure 128/84 Pulse Oximetry 97 Intake & Output 03/14/18 03/15/18 03/15/18 18:59 06:59 18:59 Intake Total 700 / 700 1530 / 1530 Output Total 520 / 520 1120 / 1120 Balance 180 / 180 410 / 410 Weight 68.7 kg Intake: IV 100 / 100 1050 / 1050 D5W/LR + KCL 20 mEq Inj 1,000 1000 / 1000 ML @ 75 mls/hr IV.SIG .[id number] [facility] Rx#:[id number] Zosyn 2.25 GM Premix 2.25 gm In 100 / 100 50 / 50 50 ml @ 100 mls/hr IV.SIG Q8H [facility] Rx#:[id number] Oral 600 / 600 480 / 480 Output: Urine Amount (Catheter) 220 / 220 250 / 250 Indwelling Urethral Catheter 220 / 220 250 / 250 Urine Amount (Stoma) 300 / 300 870 / 870 Nephrostomy Tube Left 300 / 300 870 / 870 Other: Bladder Irrigation Fluid - Amount Instilled Indwelling Urethral Catheter 50 50 Date of Last Bowel Movement 03/14/18 03/15/18 # Bowel Movements 0 1 - Urinary Catheter Management Indwelling Urethral Catheter Cath placed during this visit: no <Wilfred Ortiz - Last Filed: 03/15/18 09:02> Results - Labs CBC & Chem 7: 03/13/18 16:35 03/14/18 05:57 Laboratory Results - last 24 hr 0203/13/18 03/13/18 06:40 13:15 13:15 Hgb Hct Sodium Potassium Chloride Carbon Dioxide Anion Gap BUN Creatinine Estimated GFR Random Glucose Calcium Phosphorus Magnesium Urine Color Urine Clarity Urine pH Ur Specific [place] Urine Protein Urine Glucose (UA) Urine Ketones Urine Occult Blood Urine Nitrate Urine Bilirubin Urine Urobilinogen Ur Leukocyte Esterase Urine RBC Urine WBC Urine Bacteria Micro UA Comment Ur Microscopic Review Urine Culture Comments Urine Eosinophils None seen Urine Osmolality 265 L Ur Random Sodium Random Vancomycin 24.0 03/13/18 03/13/18 03/13/18 13:15 13:15 16:35 Hgb 8.3 L Hct 23.9 L Sodium Potassium Chloride Carbon Dioxide Anion Gap BUN Creatinine Estimated GFR Random Glucose Calcium Phosphorus Magnesium Urine Color Red Urine Clarity Marked H Urine pH 8.0 Ur Specific [place] 1.011 Urine Protein 100 H Urine Glucose (UA) 50 Urine Ketones Negative Urine Occult Blood Large H Urine Nitrate Negative Urine Bilirubin Negative Urine Urobilinogen Less than 2 Ur Leukocyte Esterase Negative Urine RBC Urine WBC 34 H Urine Bacteria Rare H Micro UA Comment Culture indicated Ur Microscopic Review Not Reportable Urine Culture Comments Culture indicated Urine Eosinophils Urine Osmolality Ur Random Sodium 101 Random Vancomycin 03/14/18 05:57 Hgb Hct Sodium 144 Potassium 3.4 L Chloride 112 H Carbon Dioxide 23.2 Anion Gap 9 BUN 30 H Creatinine 5.71 H Estimated GFR 11 L Random Glucose 103 Calcium 8.1 L Phosphorus 2.7 Magnesium 1.9 Urine Color Urine Clarity Urine pH Ur Specific [place] Urine Protein Urine Glucose (UA) Urine Ketones Urine Occult Blood Urine Nitrate Urine Bilirubin Urine Urobilinogen Ur Leukocyte Esterase Urine RBC Urine WBC Urine Bacteria Micro UA Comment Ur Microscopic Review Urine Culture Comments Urine Eosinophils Urine Osmolality Ur Random Sodium Random Vancomycin Microbiology 03/13/18 13:15 Clean Catch Urine Urine Culture - Preliminary No growth in 24 hours 03/08/18 11:00 Blood - Peripheral Aerobic Blood Culture - Final No growth in 5 days 03/08/18 11:00 Blood - Peripheral Anaerobic Blood Culture - Final No growth in 5 days 03/08/18 10:54 Blood - Peripheral Aerobic Blood Culture - Final No growth in 5 days 03/08/18 10:54 Blood - Peripheral Anaerobic Blood Culture - Final No growth in 5 days - Imaging Impressions Abdomen/Pelvis CT 03/13/18 00:00 CONCLUSION: 1. The examination demonstrates a horseshoe kidney. There is a nephrostomy tube in place on the left moiety. There is high density material filling a significantly dilated collecting system probably representing hemorrhage within the collecting system. The overall size of the kidney and size of the collecting system is similar to a previous of 03/09/2018. There are inflammatory- appearing changes and free fluid in the peritoneal cavity. This appears similar to the patient's previous examination as well. Videofluoroscopic Swallow 03/14/18 15:40 CONCLUSION: Unremarkable modified swallow. See speech pathology report. <Carol Ann Khan - Last Filed: 03/14/18 12:10> - Labs CBC & Chem 7: 03/15/18 06:31 03/15/18 06:31 Laboratory Results - last 24 hr 03/15/18 03/15/18 06:31 06:31 WBC 11.4 H RBC 2.72 L Hgb 7.8 L Hct 23.1 L MCV 85.1 MCH 28.6 MCHC 33.7 RDW 15.4 Plt Count 330 D MPV 7.9 Neut % (Auto) 81.0 H Lymph % (Auto) 6.5 L [place] % (Auto) 10.0 H Eos % (Auto) 2.1 Baso % (Auto) 0.4 Neut # (Auto) 9.3 H Lymph # (Auto) 0.7 L [place] # (Auto) 1.1 H Eos # (Auto) 0.2 Baso # (Auto) 0.0 WBC Differential . Differential Comment Auto diff final Sodium 142 Potassium 3.5 Chloride 110 H Carbon Dioxide 22.1 Anion Gap 10 BUN 37 H Creatinine 7.28 H Estimated GFR 9 L Random Glucose 106 Calcium 8.1 L Phosphorus 3.4 Albumin 2.1 L Microbiology 03/13/18 13:15 Clean Catch Urine Urine Culture - Preliminary No growth in 24 hours - Imaging Impressions Videofluoroscopic Swallow 03/14/18 15:40 CONCLUSION: Unremarkable modified swallow. See speech pathology report. <Wilfred Ortiz - Last Filed: 03/15/18 09:02> Assessment and Plan (1) Dysphagia Status: Acute Code(s): R13.10 - Dysphagia, unspecified - Plan 37 year old male with 20 pack-year history of smoking and acid reflux complains of new onset dysphagia for 5 days duration. Due to history, esophageal dysphagia caused by esophagitis (eosinophilic vs hanna's vs other) or stricture likely. - Barium pill swallow study - PPIs and liquid sulfacrate ordered - consider EGD to follow 03/14/2018 Dysphasia- Awake and alert 03/14/2018 videofluoroscopic swallow--> Unremarkable modified swallow Patient endorses most difficulty with swallowing dry solid foods. Feels food stuck in throat then passes after clearing throat Plan Diet as tolerated Continue PPI Obtain consent for EGD- further evaluation of dysphagia Supportive care Further recommendations to follow This patient has been seen by myself and Dr. Ortiz and this note is written on his behalf - Attending Attestation Dr. Ortiz <Carol Ann Khan - Last Filed: 03/14/18 12:10> (1) Dysphagia Status: Acute Code(s): R13.10 - Dysphagia, unspecified - Attending Attestation I have seen and examined the patient and reviewed the patients care with the [facility]. I agree with the above assessment and recommendations as documented above. <Wilfred Ortiz - Last Filed: 03/15/18 09:02>
--- NOTE | 2018-03-14 15:07 | P.PNNP ---
Subjective Interval history: Seen in AM. No shortness of breath, nausea, or vomiting. Dysphagia, swallow eval today. Creatinine increasing at 5.7, potassium at 3.4, urinary output decreasing. <Wandy Pathak - Last Filed: 03/14/18 15:01> Physical Exam Vital signs: Vital Signs 03/13/18 16:00 03/13/18 17:00 03/13/18 17:53 Temperature 98.9 F Pulse Rate 102 H 116 H 107 H Respiratory Rate 22 21 Blood Pressure 120/82 132/79 Pulse Oximetry 99 98 03/13/18 18:00 03/13/18 19:00 03/13/18 20:00 Temperature 98.0 F Pulse Rate 106 H 99 H 102 H Respiratory Rate 22 25 H 19 Blood Pressure 128/82 139/80 126/69 Pulse Oximetry 98 97 98 03/13/18 21:00 03/13/18 22:00 03/13/18 23:00 Temperature Pulse Rate 103 H 93 H 92 H Respiratory Rate 18 16 18 Blood Pressure 123/78 112/79 109/78 Pulse Oximetry 97 98 98 03/13/18 23:57 03/14/18 00:00 03/14/18 01:00 Temperature 97.9 F Pulse Rate 92 H 100 H 102 H Respiratory Rate 23 18 Blood Pressure 127/81 116/72 Pulse Oximetry 97 97 03/14/18 02:00 03/14/18 03:00 03/14/18 04:00 Temperature 98.0 F Pulse Rate 100 H 101 H 100 H Respiratory Rate 18 16 18 Blood Pressure 110/73 122/69 114/76 Pulse Oximetry 96 92 L 97 03/14/18 05:00 03/14/18 05:49 03/14/18 06:00 Temperature Pulse Rate 102 H 102 H 101 H Respiratory Rate 20 19 Blood Pressure 127/72 119/79 Pulse Oximetry 96 97 03/14/18 07:00 03/14/18 08:00 03/14/18 09:00 Temperature 99.1 F Pulse Rate 93 H 99 H 107 H Respiratory Rate 16 19 24 Blood Pressure 129/78 138/82 Pulse Oximetry 98 99 99 03/14/18 10:00 03/14/18 10:02 03/14/18 10:06 Temperature Pulse Rate 103 H 106 H 112 H Respiratory Rate 16 16 20 Blood Pressure 147/100 H Pulse Oximetry 98 98 02/05/19 12:19 03/14/18 12:21 Temperature 98.5 F Pulse Rate Respiratory Rate Blood Pressure 160/100 H Pulse Oximetry 99 Intake & Output 03/13/18 03/14/18 03/14/18 18:59 06:59 18:59 Intake Total 2800 / 2800 400 / 400 Output Total 200 / 200 1100 / 1100 Balance 2600 / 2600 -700 / -700 Weight 69.6 kg Intake: IV 2000 / 2000 150 / 150 NS Inj 1,000 ML @ 100 mls/hr IV 1000 / 1000 .CONT .Q10H [facility] Rx#:[id number] D5W/LR + KCL 20 mEq Inj 1,000 900 / 900 100 / 100 ML @ 75 mls/hr IV.SIG .[id number] [facility] Rx#:[id number] Zosyn 2.25 GM Premix 2.25 gm In 100 / 100 50 / 50 50 ml @ 100 mls/hr IV.SIG Q8H [facility] Rx#:[id number] Oral 800 / 800 250 / 250 Output: Urine 800 / 800 Urine Amount (Catheter) 75 / 75 50 / 50 Indwelling Urethral Catheter 75 / 75 50 / 50 Urine Amount (Stoma) 125 / 125 250 / 250 Nephrostomy Tube Left 125 / 125 250 / 250 Other: # Voids 1 Date of Last Bowel Movement 03/13/18 03/13/18 03/14/18 Narrative: GENERAL: Alert and oriented. Thin SKIN: Warm and dry. NECK: Supple, trachea midline. No JVD CARDIOVASCULAR: Tachycardia. Regular rate and rhythm without murmurs, gallops, or rubs. RESPIRATORY: Breath sounds equal bilaterally. No accessory muscle use. GASTROINTESTINAL: Abdomen soft, non-tender, nondistended. +BS GI: Left nephrostomy tube and indwelling Caldwell catheter with bloody drainage. MUSCULOSKELETAL: No cyanosis, or edema. . - Urinary Catheter Management Indwelling Urethral Catheter Cath placed during this visit: yes Reason for continuing: Other continuation reason Insertion date: 03/09/18 <Wandy Pathak - Last Filed: 03/14/18 15:01> Vital signs: Vital Signs 03/13/18 22:00 03/13/18 23:00 03/13/18 23:57 Temperature Pulse Rate 93 H 92 H 92 H Respiratory Rate 16 18 Blood Pressure 112/79 109/78 Pulse Oximetry 98 98 03/14/18 00:00 03/14/18 01:00 03/14/18 02:00 Temperature 97.9 F Pulse Rate 100 H 102 H 100 H Respiratory Rate 23 18 18 Blood Pressure 127/81 116/72 110/73 Pulse Oximetry 97 97 96 03/14/18 03:00 03/14/18 04:00 03/14/18 05:00 Temperature 98.0 F Pulse Rate 101 H 100 H 102 H Respiratory Rate 16 18 20 Blood Pressure 122/69 114/76 127/72 Pulse Oximetry 92 L 97 96 03/14/18 05:49 03/14/18 06:00 03/14/18 07:00 Temperature Pulse Rate 102 H 101 H 93 H Respiratory Rate 19 16 Blood Pressure 119/79 129/78 Pulse Oximetry 97 98 03/14/18 08:00 03/14/18 09:00 03/14/18 10:00 Temperature 99.1 F Pulse Rate 98 H 107 H 102 H Respiratory Rate 19 24 16 Blood Pressure 138/82 Pulse Oximetry 99 99 98 03/14/18 10:02 03/14/18 10:06 03/14/18 12:00 Temperature Pulse Rate 106 H 112 H 110 H Respiratory Rate 16 20 Blood Pressure 147/100 H Pulse Oximetry 98 03/14/18 12:19 03/14/18 12:21 03/14/18 13:00 Temperature 98.5 F Pulse Rate 100 H Respiratory Rate 16 Blood Pressure 160/100 H Pulse Oximetry 99 98 03/14/18 13:18 03/14/18 14:00 03/14/18 14:18 Temperature Pulse Rate 94 H 94 H 97 H Respiratory Rate 16 17 18 Blood Pressure 131/90 151/91 H Pulse Oximetry 98 97 98 03/14/18 15:00 03/14/18 15:18 03/14/18 16:00 Temperature 99.0 F Pulse Rate 101 H 98 H 98 H Respiratory Rate 21 21 19 Blood Pressure 140/91 H Pulse Oximetry 99 98 97 03/14/18 16:18 03/14/18 17:00 03/14/18 17:18 Temperature Pulse Rate 94 H 96 H 101 H Respiratory Rate 18 18 16 Blood Pressure 136/85 123/81 Pulse Oximetry 98 98 98 03/14/18 18:00 03/14/18 18:18 02/05/19 19:00 Temperature Pulse Rate 90 91 H 88 Respiratory Rate 17 17 22 Blood Pressure 136/75 Pulse Oximetry 98 98 98 03/14/18 19:18 03/14/18 20:00 03/14/18 20:18 Temperature 99.5 F Pulse Rate 91 H 88 88 Respiratory Rate 20 20 20 Blood Pressure 125/82 140/84 Pulse Oximetry 97 97 95 Intake & Output 03/14/18 03/14/18 03/15/18 06:59 18:59 06:59 Intake Total 400 / 400 700 / 700 Output Total 1100 / 1100 520 / 520 Balance -700 / -700 180 / 180 Weight 69.6 kg Intake: IV 150 / 150 100 / 100 D5W/LR + KCL 20 mEq Inj 1,000 100 / 100 ML @ 75 mls/hr IV.SIG .[id number] [facility] Rx#:[id number] Zosyn 2.25 GM Premix 2.25 gm In 50 / 50 100 / 100 50 ml @ 100 mls/hr IV.SIG Q8H [facility] Rx#:[id number] Oral 250 / 250 600 / 600 Output: Urine 800 / 800 Urine Amount (Catheter) 50 / 50 220 / 220 Indwelling Urethral Catheter 50 / 50 220 / 220 Urine Amount (Stoma) 250 / 250 300 / 300 Nephrostomy Tube Left 250 / 250 300 / 300 Other: Bladder Irrigation Fluid - Amount Instilled Indwelling Urethral Catheter 50 # Voids 1 Date of Last Bowel Movement 03/13/18 03/14/18 # Bowel Movements 0 - Urinary Catheter Management Indwelling Urethral Catheter Cath placed during this visit: no <Jorge Luis Scott - Last Filed: 03/14/18 21:36> Assessment and Plan - Assessment (1) Acute kidney injury Code(s): N17.9 - Acute kidney failure, unspecified Status: Acute Plan: [place] possible prerenal vs ATN from vancomycin toxicity and GI losses. Urine EOS negative Repeat Renal ultrasound with known horseshoe kidney. There is no hydronephrosis on the right. There is moderate dilatation of the collecting system on the left with very poor delineation of the renal cortex. There is a 4 cm complex fluid collection around the nephrostomy. There is moderate free fluid present in the pelvis. Recommend to continue IVF as patient PO intake and worsening renal indices. Avoid nephrotoxins including IV contrast and NSAIDS Creatinine has increased at 5.7 today, with some decreased urinary output Fluid and electrolytes stable will follow urinary output and BMP D/W the patient for possible Dialysis if continue to get worse. Labs in AM (2) Hypertension Code(s): I10 - Essential (primary) hypertension Status: Acute Plan: Blood pressure well controlled. On hydralazine and metoprolol (3) Sepsis Code(s): A41.9 - Sepsis, unspecified organism Status: Acute Plan: On antibiotics, renal dose as indicated. (4) Hydronephrosis of left kidney Code(s): N13.30 - Unspecified hydronephrosis Status: Chronic Onset Date: Unknown Plan: S/p nephrostomy tube Urology managing. (5) Anemia Code(s): D64.9 - Anemia, unspecified Status: Acute Plan: HGB at 8.3 has received PRBC Transfuse for HGB less than 7.0 <Wandy Pathak - Last Filed: 03/14/18 15:01> - Assessment (1) Acute kidney injury Code(s): N17.9 - Acute kidney failure, unspecified Status: Acute Plan: Patient seen and examined, agree with above. Creatinine is increasing,urine out put is low. Possibly will need HD, D/W the patient. Continue IVF, urology follow up needed. (2) Hypertension Code(s): I10 - Essential (primary) hypertension Status: Acute (3) Sepsis Code(s): A41.9 - Sepsis, unspecified organism Status: Acute (4) Hydronephrosis of left kidney Code(s): N13.30 - Unspecified hydronephrosis Status: Chronic Onset Date: Unknown (5) Anemia Code(s): D64.9 - Anemia, unspecified Status: Acute <Jorge Luis Scott - Last Filed: 03/14/18 21:36>
--- NOTE | 2018-03-14 18:02 | P.PNIM ---
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 He was admitted and seen by urology who arranged for percutaneous nephrostomy tube placement by IR on 03/08/18. Subsequently patient had continued gross hematuria and required transfusion 2 units and again 2 units on 03/11. Patient has ongoing hematuria. Also patient has been having dysphagia and swollow eval, mbs has been unremarkable, gi was consulted and patient is scheduled for egd in am, also patients renal function has worsened from 2.14 -->0.9 -->5.71 today and nephrology is following. pt seen and examined doing fair, no nv, no abd pain, he is complaining of back pain at site of nephrostomy tube. dark blood in price Physical Exam Vital signs: Vital Signs 03/13/18 18:00 03/13/18 19:00 03/13/18 20:00 Temperature 98.0 F Pulse Rate 106 H 99 H 102 H Respiratory Rate 22 25 H 19 Blood Pressure 128/82 139/80 126/69 Pulse Oximetry 98 97 98 03/13/18 21:00 03/13/18 22:00 03/13/18 23:00 Temperature Pulse Rate 103 H 93 H 92 H Respiratory Rate 18 16 18 Blood Pressure 123/78 112/79 109/78 Pulse Oximetry 97 98 98 03/13/18 23:57 03/14/18 00:00 03/14/18 01:00 Temperature 97.9 F Pulse Rate 92 H 100 H 102 H Respiratory Rate 23 18 Blood Pressure 127/81 116/72 Pulse Oximetry 97 97 03/14/18 02:00 03/14/18 03:00 03/14/18 04:00 Temperature 98.0 F Pulse Rate 100 H 101 H 100 H Respiratory Rate 18 16 18 Blood Pressure 110/73 122/69 114/76 Pulse Oximetry 96 92 L 97 03/14/18 05:00 03/14/18 05:49 03/14/18 06:00 Temperature Pulse Rate 102 H 102 H 101 H Respiratory Rate 20 19 Blood Pressure 127/72 119/79 Pulse Oximetry 96 97 03/14/18 07:00 03/14/18 08:00 03/14/18 09:00 Temperature 99.1 F Pulse Rate 93 H 99 H 107 H Respiratory Rate 16 19 24 Blood Pressure 129/78 138/82 Pulse Oximetry 98 99 99 03/14/18 10:00 03/14/18 10:02 03/14/18 10:06 Temperature Pulse Rate 103 H 106 H 112 H Respiratory Rate 16 16 20 Blood Pressure 147/100 H Pulse Oximetry 98 98 03/14/18 12:19 03/14/18 12:21 03/14/18 13:00 Temperature 98.5 F Pulse Rate 100 H Respiratory Rate 16 Blood Pressure 160/100 H Pulse Oximetry 99 98 03/14/18 13:18 03/14/18 14:00 03/14/18 14:18 Temperature Pulse Rate 94 H 95 H 97 H Respiratory Rate 16 17 18 Blood Pressure 131/90 151/91 H Pulse Oximetry 98 97 98 03/14/18 15:00 03/14/18 15:18 03/14/18 16:00 Temperature 99.0 F Pulse Rate 101 H 98 H 98 H Respiratory Rate 21 21 19 Blood Pressure 140/91 H Pulse Oximetry 99 98 97 Intake & Output 03/13/18 03/14/18 03/14/18 18:59 06:59 18:59 Intake Total 2800 / 2800 400 / 400 100 / 100 Output Total 200 / 200 1100 / 1100 Balance 2600 / 2600 -700 / -700 100 / 100 Weight 69.6 kg Intake: IV 2000 / 2000 150 / 150 100 / 100 NS Inj 1,000 ML @ 100 mls/hr IV 1000 / 1000 .CONT .Q10H [facility] Rx#:[id number] D5W/LR + KCL 20 mEq Inj 1,000 900 / 900 100 / 100 ML @ 75 mls/hr IV.SIG .[id number] [facility] Rx#:[id number] Zosyn 2.25 GM Premix 2.25 gm In 100 / 100 50 / 50 100 / 100 50 ml @ 100 mls/hr IV.SIG Q8H [facility] Rx#:[id number] Oral 800 / 800 250 / 250 Output: Urine 800 / 800 Urine Amount (Catheter) 75 / 75 50 / 50 Indwelling Urethral Catheter 75 / 75 50 / 50 Urine Amount (Stoma) 125 / 125 250 / 250 Nephrostomy Tube Left 125 / 125 250 / 250 Other: # Voids 1 Date of Last Bowel Movement 03/13/18 03/13/18 03/14/18 Narrative: thin wdwn 37yo wm aaox3 nad heart s1s2 reg lungs clear no wrr abd soft nondt pos bs ext no edema no calf tenderenss price bag at bedside gross blood Urinary Catheter Management Indwelling Urethral Catheter: Cath placed during this visit: yes Reason for continuing: Other continuation reason Insertion date: 03/09/18 Results Labs CBC & Chem 7: 03/13/18 16:35 03/14/18 05:57 Labs: Microbiology 03/13/18 13:15 Clean Catch Urine Urine Culture - Preliminary No growth in 24 hours Imaging Imaging: Impressions Videofluoroscopic Swallow 03/14/18 15:40 CONCLUSION: Unremarkable modified swallow. See speech pathology report. Assessment and Plan (1) Dysphagia: Code(s): R13.10 - Dysphagia, unspecified Status: Acute Plan SEPSIS - due to pyelonephritis , bc neg x 2 from admit, urine cx prelim no growth PYELONEPHRITIS - vanco on hold due to renal failure, on zosyn SEVERE HYDRONEPHROSIS w UPJ obstruction HORSESHOE KIDNEY Left - s/p PNT placement - followed by urology, cont cbi, ACUTE RENAL FAILURE w hypokalemia - at first due to infection and prerenal due to hydro, now likely due to ATN 2nd to vanco toxicity. - cont as per nephrology , ANEMIA due to acute blood loss - post transfusions, transfuse as needed to keep hgb above 8, SEVERE PROT BRYSON MALNUTRITION - alb 2.0 - nutrition, estiven DYSPHAGIA- mbs nml, for EGD in am, cont protonix HTN - no hx of it but starting to increase monitor and start meds if needed. B/L PLEURAL EFFUSIONS - noted on cts abd pelvis - w bibasilar atelectasis - is, oob ASTHMA hx stable nebs prn SEIZURE do as child not on medications, stable dvt prophylaxis - no ac due to hematuria, scd and ambulation dispo - home when stable Progress Note: Quality VTE Deep Vein Thrombosis/Pulmonary Embolism Present on Admission: No _ (1) Dysphagia Qualifiers: Dysphagia type:
[2018-03-15] MEDS: KCL 20 mEq/D5W/LR Inj 1,000 ML IV.SIG SCH ×3 (05:36→07:49)
[2018-03-15 07:00] LABS: Baso % (Auto) 0.4 % (0.0-2.0); Eos # (Auto) 0.2 th/mm3 (0.0-0.4); Eos % (Auto) 2.1 % (0.0-4.0); Hematocrit 23.1 % (39.0-51.0); Hemoglobin 7.8 gm/dL (13.0-17.0); Lymph # (Auto) 0.7 th/mm3 (1.0-4.8); Lymph % (Auto) 6.5 % (9.0-44.0); Mean Corpuscular HGB Conc 33.7 % (32.0-36.0); Mean Corpuscular Hemoglobin 28.6 pg (27.0-34.0); Mean Corpuscular Volume 85.1 fL (80.0-100.0); Mean Platelet Volume 7.9 fL (7.0-11.0); Mono # (Auto) 1.1 th/mm3 (0.0-0.9); Neut # (Auto) 9.3 th/mm3 (1.8-7.7); Platelet Count 330 th/mm3 (150-450); Red Blood Count 2.72 mil/mm3 (4.50-5.90); Red Cell Distribution Width 15.4 % (11.6-17.2); White Blood Count 11.4 th/mm3 (4.0-11.0)
[2018-03-15 07:25] LABS: Albumin 2.1 g/dL (3.4-5.0); Calcium 8.1 mg/dL (8.5-10.1); Carbon Dioxide 22.1 meq/L (21.0-32.0); Phosphorus 3.4 mg/dL (2.5-4.9); Potassium 3.5 meq/L (3.5-5.1)
[2018-03-15] MEDS: Sod Chloride 0.9% Inj 1,000 ML IV.CONT SCH ×4 (07:46→07:49)
[2018-03-15] MEDS: Dextrose 5%/Lactated Ringer's 1,000 ML IV.CONT SCH ×3 (07:47→07:49)
[2018-03-15] MEDS: Senna/Docusate Sodium 8.6/50 MG Tablet PO SCH ×3 (07:48→20:14)
[2018-03-15] MEDS: Metoprolol Tartrate 25 MG Tablet PO SCH ×2 (08:50→20:12)
[2018-03-15] MEDS: Piperacil/Tazo 2.25 GM Premix 2.25 GM/50 ML PIGGYBACK IV.SIG SCH (08:50)
[2018-03-15] MEDS: Morphine Inj 4 MG/ML Vial IV.PUSH PRN (08:54)
--- NOTE | 2018-03-15 10:00 | P.PNGI ---
Subjective Interval history: Patient continues to complain of solid food dysphagia, however eating full meals. Denies nausea, vomiting, abdominal pain, constipation. Still reports loose stools. Modified barium swallow reveals no stricture or mass. <Kaelyn Mcconnell - Last Filed: 03/15/18 13:40> Physical Exam Vital signs: Vital Signs 03/14/18 10:00 03/14/18 10:02 03/14/18 10:06 Temperature Pulse Rate 102 H 106 H 112 H Respiratory Rate 16 16 20 Blood Pressure 147/100 H Pulse Oximetry 98 98 03/14/18 12:00 03/14/18 12:19 03/14/18 12:21 Temperature 98.5 F Pulse Rate 110 H Respiratory Rate Blood Pressure 160/100 H Pulse Oximetry 99 03/14/18 13:00 03/14/18 13:18 03/14/18 14:00 Temperature Pulse Rate 100 H 94 H 94 H Respiratory Rate 16 16 17 Blood Pressure 131/90 Pulse Oximetry 98 98 97 03/14/18 14:18 03/14/18 15:00 03/14/18 15:18 Temperature Pulse Rate 97 H 101 H 98 H Respiratory Rate 18 21 21 Blood Pressure 151/91 H 140/91 H Pulse Oximetry 98 99 98 03/14/18 16:00 03/14/18 16:18 03/14/18 17:00 Temperature 99.0 F Pulse Rate 98 H 94 H 96 H Respiratory Rate 19 18 18 Blood Pressure 136/85 Pulse Oximetry 97 98 98 03/14/18 17:18 03/14/18 18:00 03/14/18 18:18 Temperature Pulse Rate 101 H 90 91 H Respiratory Rate 16 17 17 Blood Pressure 123/81 136/75 Pulse Oximetry 98 98 98 03/14/18 19:00 03/14/18 19:18 03/14/18 20:00 Temperature 99.5 F Pulse Rate 88 91 H 88 Respiratory Rate 22 20 20 Blood Pressure 125/82 Pulse Oximetry 98 97 97 03/14/18 20:18 03/14/18 21:00 03/14/18 21:18 Temperature Pulse Rate 88 91 H 91 H Respiratory Rate 20 20 14 Blood Pressure 140/84 118/75 Pulse Oximetry 95 95 96 03/14/18 22:00 03/14/18 22:18 03/14/18 23:00 Temperature Pulse Rate 88 94 H 89 Respiratory Rate 18 18 17 Blood Pressure 142/74 H Pulse Oximetry 96 97 97 03/14/18 23:18 03/15/18 00:00 03/15/18 00:18 Temperature 99.4 F Pulse Rate 82 83 82 Respiratory Rate 18 14 15 Blood Pressure 118/77 126/79 Pulse Oximetry 96 96 97 03/15/18 01:00 03/15/18 01:18 03/15/18 02:00 Temperature Pulse Rate 83 84 98 H Respiratory Rate 16 14 19 Blood Pressure 125/76 Pulse Oximetry 97 97 97 03/15/18 02:18 03/15/18 03:00 03/15/18 03:18 Temperature Pulse Rate 110 H 87 85 Respiratory Rate 39 H 13 16 Blood Pressure 157/88 H 132/86 Pulse Oximetry 97 97 03/15/18 04:00 03/15/18 04:18 03/15/18 05:00 Temperature 98.9 F Pulse Rate 97 H 105 H 89 Respiratory Rate 19 29 H 16 Blood Pressure 140/61 Pulse Oximetry 98 97 03/15/18 05:18 03/15/18 06:00 03/15/18 06:18 Temperature Pulse Rate 84 84 82 Respiratory Rate 15 20 16 Blood Pressure 146/83 H 128/84 Pulse Oximetry 97 97 97 Intake & Output 03/14/18 03/15/18 03/15/18 18:59 06:59 18:59 Intake Total 700 / 700 1530 / 1530 Output Total 520 / 520 1120 / 1120 Balance 180 / 180 410 / 410 Weight 68.7 kg Intake: IV 100 / 100 1050 / 1050 D5W/LR + KCL 20 mEq Inj 1,000 1000 / 1000 ML @ 75 mls/hr IV.SIG .[id number] [facility] Rx#:[id number] Zosyn 2.25 GM Premix 2.25 gm In 100 / 100 50 / 50 50 ml @ 100 mls/hr IV.SIG Q8H [facility] Rx#:[id number] Oral 600 / 600 480 / 480 Output: Urine Amount (Catheter) 220 / 220 250 / 250 Indwelling Urethral Catheter 220 / 220 250 / 250 Urine Amount (Stoma) 300 / 300 870 / 870 Nephrostomy Tube Left 300 / 300 870 / 870 Other: Bladder Irrigation Fluid - Amount Instilled Indwelling Urethral Catheter 50 50 Date of Last Bowel Movement 03/14/18 03/15/18 # Bowel Movements 0 1 Narrative: . - Constitutional no acute distress - Routine Abdominal Exam Present: soft, normoactive bowel sounds. Absent: tenderness, distended, rebound , guarding, organomegaly - Urinary Catheter Management Indwelling Urethral Catheter Cath placed during this visit: yes Reason for continuing: Other continuation reason Insertion date: 03/09/18 <DominiqueKaelyn del cid - Last Filed: 03/15/18 13:40> Vital signs: Vital Signs 03/14/18 15:18 03/14/18 16:00 03/14/18 16:18 Temperature 99.0 F Pulse Rate 98 H 98 H 94 H Respiratory Rate 21 19 18 Blood Pressure 140/91 H 136/85 Pulse Oximetry 98 97 98 03/14/18 17:00 03/14/18 17:18 03/14/18 18:00 Temperature Pulse Rate 96 H 101 H 90 Respiratory Rate 18 16 17 Blood Pressure 123/81 Pulse Oximetry 98 98 98 03/14/18 18:18 03/14/18 19:00 03/14/18 19:18 Temperature Pulse Rate 91 H 88 91 H Respiratory Rate 17 22 20 Blood Pressure 136/75 125/82 Pulse Oximetry 98 98 97 03/14/18 20:00 03/14/18 20:18 03/14/18 21:00 Temperature 99.5 F Pulse Rate 88 88 91 H Respiratory Rate 20 20 20 Blood Pressure 140/84 Pulse Oximetry 97 95 95 03/14/18 21:18 03/14/18 22:00 03/14/18 22:18 Temperature Pulse Rate 91 H 88 94 H Respiratory Rate 14 18 18 Blood Pressure 118/75 142/74 H Pulse Oximetry 96 96 97 03/14/18 23:00 03/14/18 23:18 03/15/18 00:00 Temperature 99.4 F Pulse Rate 89 82 83 Respiratory Rate 17 18 14 Blood Pressure 118/77 Pulse Oximetry 97 96 96 03/15/18 00:18 03/15/18 01:00 03/15/18 01:18 Temperature Pulse Rate 82 83 84 Respiratory Rate 15 16 14 Blood Pressure 126/79 125/76 Pulse Oximetry 97 97 97 03/15/18 02:00 03/15/18 02:18 03/15/18 03:00 Temperature Pulse Rate 98 H 110 H 87 Respiratory Rate 19 39 H 13 Blood Pressure 157/88 H Pulse Oximetry 97 97 03/15/18 03:18 03/15/18 04:00 03/15/18 04:18 Temperature 98.9 F Pulse Rate 85 97 H 105 H Respiratory Rate 16 19 29 H Blood Pressure 132/86 140/61 Pulse Oximetry 97 98 03/15/18 05:00 03/15/18 05:18 03/15/18 06:00 Temperature Pulse Rate 89 84 84 Respiratory Rate 16 15 20 Blood Pressure 146/83 H Pulse Oximetry 97 97 97 03/15/18 06:18 03/15/18 07:00 03/15/18 07:18 Temperature Pulse Rate 82 82 78 Respiratory Rate 16 16 12 Blood Pressure 128/84 136/84 Pulse Oximetry 97 98 98 03/15/18 08:00 03/15/18 08:18 03/15/18 09:00 Temperature 98.8 F Pulse Rate 79 74 85 Respiratory Rate 18 19 18 Blood Pressure 113/81 Pulse Oximetry 98 98 98 03/15/18 09:18 03/15/18 10:00 03/15/18 10:59 Temperature Pulse Rate 89 95 H 93 H Respiratory Rate 21 Blood Pressure 145/84 H Pulse Oximetry 97 03/15/18 11:00 03/15/18 11:17 03/15/18 11:18 Temperature Pulse Rate 92 H 88 Respiratory Rate 21 15 Blood Pressure 153/96 H Pulse Oximetry 99 97 98 03/15/18 12:00 03/15/18 12:18 03/15/18 13:00 Temperature Pulse Rate 87 86 86 Respiratory Rate 17 17 17 Blood Pressure 143/86 H Pulse Oximetry 98 98 98 03/15/18 13:18 03/15/18 14:00 03/15/18 14:13 Temperature 98.7 F Pulse Rate 93 H 91 H 90 Respiratory Rate 21 22 17 Blood Pressure 152/96 H 152/96 H Pulse Oximetry 99 99 98 03/15/18 14:18 Temperature Pulse Rate 88 Respiratory Rate 16 Blood Pressure 158/96 H Pulse Oximetry 99 Intake & Output 03/14/18 03/15/18 03/15/18 18:59 06:59 18:59 Intake Total 700 / 700 1530 / 1530 50 / 50 Output Total 520 / 520 1120 / 1120 Balance 180 / 180 410 / 410 50 / 50 Weight 68.7 kg Intake: IV 100 / 100 1050 / 1050 50 / 50 D5W/LR + KCL 20 mEq Inj 1,000 1000 / 1000 ML @ 75 mls/hr IV.SIG .[id number] [facility] Rx#:[id number] Zosyn 2.25 GM Premix 2.25 gm In 100 / 100 50 / 50 50 / 50 50 ml @ 100 mls/hr IV.SIG Q8H [facility] Rx#:[id number] Oral 600 / 600 480 / 480 Intake (Blood Product) Amt 0 / 0 Rbc As-3 Leukoreduced Unit 0 / 0 [id number] Output: Urine Amount (Catheter) 220 / 220 250 / 250 Indwelling Urethral Catheter 220 / 220 250 / 250 Urine Amount (Stoma) 300 / 300 870 / 870 Nephrostomy Tube Left 300 / 300 870 / 870 Other: Bladder Irrigation Fluid - Amount Instilled Indwelling Urethral Catheter 50 50 Date of Last Bowel Movement 03/14/18 03/15/18 03/15/18 # Bowel Movements 0 1 - Urinary Catheter Management Indwelling Urethral Catheter Cath placed during this visit: no <Wilfred Ortiz - Last Filed: 03/15/18 15:03> Results - Labs CBC & Chem 7: 03/15/18 06:31 03/15/18 06:31 Laboratory Results - last 24 hr 03/15/18 03/15/18 06:31 06:31 WBC 11.4 H RBC 2.72 L Hgb 7.8 L Hct 23.1 L MCV 85.1 MCH 28.6 MCHC 33.7 RDW 15.4 Plt Count 330 D MPV 7.9 Neut % (Auto) 81.0 H Lymph % (Auto) 6.5 L Perry % (Auto) 10.0 H Eos % (Auto) 2.1 Baso % (Auto) 0.4 Neut # (Auto) 9.3 H Lymph # (Auto) 0.7 L Perry # (Auto) 1.1 H Eos # (Auto) 0.2 Baso # (Auto) 0.0 WBC Differential . Differential Comment Auto diff final Sodium 142 Potassium 3.5 Chloride 110 H Carbon Dioxide 22.1 Anion Gap 10 BUN 37 H Creatinine 7.28 H Estimated GFR 9 L Random Glucose 106 Calcium 8.1 L Phosphorus 3.4 Albumin 2.1 L Microbiology 03/13/18 13:15 Clean Catch Urine Urine Culture - Preliminary No growth in 24 hours - Imaging Impressions Videofluoroscopic Swallow 03/14/18 15:40 CONCLUSION: Unremarkable modified swallow. See speech pathology report. <Kaelyn Mcconnell - Last Filed: 03/15/18 13:40> - Labs CBC & Chem 7: 03/15/18 06:31 03/15/18 06:31 Laboratory Results - last 24 hr 03/14/18 03/15/18 03/15/18 05:57 06:31 06:31 WBC 11.4 H RBC 2.72 L Hgb 7.8 L Hct 23.1 L MCV 85.1 MCH 28.6 MCHC 33.7 RDW 15.4 Plt Count 330 D MPV 7.9 Neut % (Auto) 81.0 H Lymph % (Auto) 6.5 L Perry % (Auto) 10.0 H Eos % (Auto) 2.1 Baso % (Auto) 0.4 Neut # (Auto) 9.3 H Lymph # (Auto) 0.7 L Perry # (Auto) 1.1 H Eos # (Auto) 0.2 Baso # (Auto) 0.0 WBC Differential . Differential Comment Auto diff final Sodium 142 Potassium 3.5 Chloride 110 H Carbon Dioxide 22.1 Anion Gap 10 BUN 37 H Creatinine 7.28 H Estimated GFR 9 L Random Glucose 106 Calcium 8.1 L Phosphorus 3.4 Albumin 2.1 L MIKI Screen Neg Blood Type Antibody Screen MTS Gel Crossmatch 03/15/18 12:11 WBC RBC Hgb Hct MCV MCH MCHC RDW Plt Count MPV Neut % (Auto) Lymph % (Auto) Perry % (Auto) Eos % (Auto) Baso % (Auto) Neut # (Auto) Lymph # (Auto) Perry # (Auto) Eos # (Auto) Baso # (Auto) WBC Differential Differential Comment Sodium Potassium Chloride Carbon Dioxide Anion Gap BUN Creatinine Estimated GFR Random Glucose Calcium Phosphorus Albumin MIKI Screen Blood Type O Positive Antibody Screen Negative MTS Gel Crossmatch See Detail Microbiology 03/13/18 13:15 Clean Catch Urine Urine Culture - Final No growth in 48 hours - Imaging Impressions Barium Swallow X-Ray 03/15/18 00:00 CONCLUSION: 1. Limited examination with no stricture or ulceration. 2. Small reducible hiatal hernia. <Wilfred Ortiz - Last Filed: 03/15/18 15:03> Assessment and Plan - Plan 37 year old male with 20 pack-year history of smoking and acid reflux complains of new onset dysphagia for 5 days duration. Due to history, esophageal dysphagia caused by esophagitis (eosinophilic vs hanna's vs other) or stricture likely. - Barium pill swallow study - PPIs and liquid sulfacrate ordered - consider EGD to follow 03/14/2018 Dysphasia- Awake and alert 03/14/2018 videofluoroscopic swallow--> Unremarkable modified swallow Patient endorses most difficulty with swallowing dry solid foods. Feels food stuck in throat then passes after clearing throat - Dysphasia Awake and alert Barium swallow reveals no stricture or mass, will schedule EGD for tomorrow. Plan NPO after midnight Continue PPI Obtain consent for EGD- further evaluation of dysphagia Supportive care Further recommendations to follow Patient seen and discussed with NICHOLE Ruiz MS4 <Kaelyn Mcconnell - Last Filed: 03/15/18 13:40> (1) Dysphagia Status: Acute Code(s): R13.10 - Dysphagia, unspecified - Attending Attestation I have seen and examined the patient and reviewed the patients care with the TOP INSTALLER and medical student. I agree with the above assessment and recommendations as documented above. <Wilfred Ortiz - Last Filed: 03/15/18 15:03>
[2018-03-15] MEDS ORDERED: Custom Consult Pharmacy OTHER PRN (10:10)
--- NOTE | 2018-03-15 10:26 | P.PNURO ---
Subjective Patient symptoms today: Pt seen and examined. Feels about the same. Moving bowels. U/o is marginal. Creatinine rising to 7.2. Hgb down to 7.8. Objective Vital Signs: Vital Signs 03/14/18 12:00 03/14/18 12:19 03/14/18 12:21 Temperature 98.5 F Pulse Rate 110 H Respiratory Rate Blood Pressure 160/100 H Pulse Oximetry 99 03/14/18 13:00 03/14/18 13:18 03/14/18 14:00 Temperature Pulse Rate 100 H 94 H 94 H Respiratory Rate 16 16 17 Blood Pressure 131/90 Pulse Oximetry 98 98 97 03/14/18 14:18 03/14/18 15:00 03/14/18 15:18 Temperature Pulse Rate 97 H 101 H 98 H Respiratory Rate 18 21 21 Blood Pressure 151/91 H 140/91 H Pulse Oximetry 98 99 98 03/14/18 16:00 03/14/18 16:18 03/14/18 17:00 Temperature 99.0 F Pulse Rate 98 H 94 H 96 H Respiratory Rate 19 18 18 Blood Pressure 136/85 Pulse Oximetry 97 98 98 03/14/18 17:18 03/14/18 18:00 03/14/18 18:18 Temperature Pulse Rate 101 H 90 91 H Respiratory Rate 16 17 17 Blood Pressure 123/81 136/75 Pulse Oximetry 98 98 98 03/14/18 19:00 03/14/18 19:18 03/14/18 20:00 Temperature 99.5 F Pulse Rate 88 91 H 88 Respiratory Rate 22 20 20 Blood Pressure 125/82 Pulse Oximetry 98 97 97 03/14/18 20:18 03/14/18 21:00 03/14/18 21:18 Temperature Pulse Rate 88 91 H 91 H Respiratory Rate 20 20 14 Blood Pressure 140/84 118/75 Pulse Oximetry 95 95 96 03/14/18 22:00 03/14/18 22:18 03/14/18 23:00 Temperature Pulse Rate 88 94 H 89 Respiratory Rate 18 18 17 Blood Pressure 142/74 H Pulse Oximetry 96 97 97 03/14/18 23:18 03/15/18 00:00 03/15/18 00:18 Temperature 99.4 F Pulse Rate 82 83 82 Respiratory Rate 18 14 15 Blood Pressure 118/77 126/79 Pulse Oximetry 96 96 97 03/15/18 01:00 03/15/18 01:18 03/15/18 02:00 Temperature Pulse Rate 83 84 98 H Respiratory Rate 16 14 19 Blood Pressure 125/76 Pulse Oximetry 97 97 97 03/15/18 02:18 03/15/18 03:00 03/15/18 03:18 Temperature Pulse Rate 110 H 87 85 Respiratory Rate 39 H 13 16 Blood Pressure 157/88 H 132/86 Pulse Oximetry 97 97 03/15/18 04:00 03/15/18 04:18 03/15/18 05:00 Temperature 98.9 F Pulse Rate 97 H 105 H 89 Respiratory Rate 19 29 H 16 Blood Pressure 140/61 Pulse Oximetry 98 97 03/15/18 05:18 03/15/18 06:00 03/15/18 06:18 Temperature Pulse Rate 84 84 82 Respiratory Rate 15 20 16 Blood Pressure 146/83 H 128/84 Pulse Oximetry 97 97 97 03/15/18 07:00 03/15/18 07:18 03/15/18 08:00 Temperature 98.8 F Pulse Rate 82 78 79 Respiratory Rate 16 12 18 Blood Pressure 136/84 Pulse Oximetry 98 98 98 03/15/18 08:18 03/15/18 09:00 03/15/18 09:18 Temperature Pulse Rate 74 85 89 Respiratory Rate 19 18 21 Blood Pressure 113/81 145/84 H Pulse Oximetry 98 98 97 03/15/18 10:00 Temperature Pulse Rate 95 H Respiratory Rate Blood Pressure Pulse Oximetry Intake & Output 03/14/18 03/15/18 03/15/18 18:59 06:59 18:59 Intake Total 700 / 700 1530 / 1530 50 / 50 Output Total 520 / 520 1120 / 1120 Balance 180 / 180 410 / 410 50 / 50 Weight 68.7 kg Intake: IV 100 / 100 1050 / 1050 50 / 50 D5W/LR + KCL 20 mEq Inj 1,000 1000 / 1000 ML @ 75 mls/hr IV.SIG .[id number] [facility]E Rx#:[id number] Zosyn 2.25 GM Premix 2.25 gm In 100 / 100 50 / 50 50 / 50 50 ml @ 100 mls/hr IV.SIG Q8H [facility]E Rx#:[id number] Oral 600 / 600 480 / 480 Output: Urine Amount (Catheter) 220 / 220 250 / 250 Indwelling Urethral Catheter 220 / 220 250 / 250 Urine Amount (Stoma) 300 / 300 870 / 870 Nephrostomy Tube Left 300 / 300 870 / 870 Other: Bladder Irrigation Fluid - Amount Instilled Indwelling Urethral Catheter 50 50 Date of Last Bowel Movement 03/14/18 03/15/18 03/15/18 # Bowel Movements 0 1 Result Diagrams: 03/15/18 06:31 03/15/18 06:31 Imaging: Impressions Videofluoroscopic Swallow 03/14/18 15:40 CONCLUSION: Unremarkable modified swallow. See speech pathology report. Medications and IVs: Active Medications Generic Name Dose Route Start Last Admin Trade Name Freq PRN Reason Stop Dose Admin Acetaminophen 650 mg 03/07/18 23:05 03/11/18 12:26 Tylenol PO 650 mg Q4H PRN Administration Temp > 100.4 Belladonna Alkaloids/Opium 60 mg 03/10/18 15:43 B & O Supp RECTAL Q6HR PRN BLADDER SPASM Furosemide 40 mg 03/15/18 09:00 03/15/18 08:50 Lasix Inj IV.PUSH 40 mg BID@0900,1800 [facility]LOE Administration Hydralazine HCl 25 mg 03/12/18 19:23 Apresoline PO TID [facility]LOE Potassium Cl/Dextrose/Lact Ringer's 1,000 mls @ 75 mls/hr 03/12/18 09:00 07/26 07:49 D5w/Lr + Kcl 20 Meq Inj IV.SIG Not Given .[id number] [facility]E Piperacillin/Tazobactam/Dextrose 2.25 gm in 50 mls @ 100 mls/hr 03/13/18 00: 00 03/15/18 09:56 Zosyn 2.25 Gm Premix IV.SIG Infused Q8H [facility]LOE Infusion Metoprolol Tartrate 12.5 mg 03/11/18 09:00 03/15/18 08:50 Lopressor PO 12.5 mg BID CHLOE Administration Miscellaneous 1 each 03/11/18 10:00 03/15/18 08:51 Pill Splitter OTHER 1 each UNSCH [facility]LOE Administration Morphine Sulfate 1 mg 03/13/18 08:58 03/15/18 08:54 Morphine Inj IV.PUSH 1 mg Q4H PRN Administration pain 1 to 10 Ondansetron HCl 4 mg 03/07/18 23:05 03/13/18 23:30 Zofran Inj IV.PUSH 4 mg Q6H PRN Administration NAUSEA OR VOMITING Pantoprazole Sodium 40 mg 03/13/18 15:45 03/15/18 08:50 Protonix PO 40 mg DAILY CHLOE Administration Pharmacy Profile Note 1 each 03/15/18 10:10 Custom Consult Pharmacy OTHER UNSCH PRN PHARMACY DOCUMENTATION Polyethylene Glycol 17 gm 03/09/18 14:24 03/09/18 21:14 Miralax PO 17 gm DAILY PRN Administration Moderate-severe constipation Senna/Docusate Sodium 1 tab 03/09/18 21:00 03/15/18 08:54 Allyssa-Colace PO Not Given BID [facility]LOE Sodium Chloride 2 ml 03/08/18 09:00 03/15/18 08:51 Ns Flush IV.FLUSH 2 ml BID [facility]LOE Administration Sodium Chloride 2 ml 03/07/18 23:05 Ns Flush IV.FLUSH PRN PRN FLUSH AFTER USING IV ACCESS Objective Remarks: CV: sinus tach Abd:soft, mild distension; no rebound Price: old dark blood Ext: neg C/C/E 03/10 CV: sinus tach Abd:soft,less tenderness and distension Price: blood tinged PCNT: bloody 03/10 16:00: SP pains. Bladder not palpable. No SP tenderness. Abd: now non tender LLQ. Bloody urine via nephrostomy, no clots. Bloody urine via price catheter, no clots. 03/11: Scant urine output via Nephrostomy tube. It may not be draining, will wait and see. Fairly good urine output via price catheter. Urine dark blood tinged, no clots. BP varies high to normal, Pulse varies, temp 99. 03/12: See "Subjective" for the Objective. Suspect Vancomycin toxicity causing deterioration in kidney function and decreased urine output. N tube draining dark burgundy urine. PLAN: Dr. Little following the labs. N tube irrigation by IR if needed. 03/13 Abd:soft,nt,nd Left PNCT with blood Price: hematuria 03/14 Abd:soft,nt,nd Left PCNT: bloody Price: blood tinged 03/15 Abd:soft,nt,nd Left PCNT: bloody Price: blood tinged Assessment and Plan - Assessment (1) Sepsis due to urinary tract infection Code(s): A41.9 - Sepsis, unspecified organism; N39.0 - Urinary tract infection, site not specified Status: Acute Onset Date: ~03/07/18 (2) Hydronephrosis of left kidney Code(s): N13.30 - Unspecified hydronephrosis Status: Chronic (3) 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 Back up plan is to try to place a urinary stent cystoscopically in the OR. However, there is a great possibility that the presumed UPJ stenosis will prevent passage of guide wires and stent. 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 Discussed with Dr. Little. 03/11: N tube may or may not be draining. Sepsis improving. Still having bladder spasms, receiving Morphine. PLAN: Continue same. 03/12 See "Subjective", "Objective". 03/13 37 y.o male with sepsis and h/o horseshoe kidney s/p PCNT placement with hematuria Continue supportive measures for now Transfuse PRBC's today if repeat Hgb is below 8 Monitor u/o; avoid nephrotoxins Will follow. 03/14 37 y.o male with sepsis and horseshoe kidney s/p PCNT with hematuria and ARF Hgb stablized at 8.3 this AM. Creatinine rising to 5.7; u/o dropping Await Nephrology input Monitor u/o Continue conservative measures for now. 03/15 37 y.o male with sepsis and horseshoe kidney s/p PCNT with hematuria and worsening ARF. Creatinine up to 7.2 up from 5.7. Hgb down to 7.8. Will transfuse 1 unit PRBC's. Await Nephrology input Monitor u/o.
--- NOTE | 2018-03-15 11:08 | FL ---
EXAM DATE: 03/15/2018 11:01 AM EST AGE/SEX: 37 years / Male INDICATIONS: Dysphagia. CLINICAL DATA: This is the patient's initial encounter. Patient reports that signs and symptoms have been present for 4 - 6 days and indicates a pain score of 0/10. MEDICAL/SURGICAL HISTORY: . asthma, seizures, horseshoe kidney, pneumothorax . left nephrostom y COMPARISON: No prior exams available for comparison. FLUORO TIME: 1.1 IMAGE COUNT: 7 RADIATION DOSE: 672.6 DAP FINDINGS: A limited barium swallow was performed using thin barium. The patient was unable to stand or walk and had limited mobility. Deglutition is grossly normal resulting in unobstructed passage of barium into the proximal esophagus. There was normal esophageal mucosa and motility. There was no stricture or e vidence of ulceration. There is a small reducible hiatal hernia. The patient swallowed barium tablet without difficulty. This rapidly passed into the stomach. CONCLUSION: 1. Limited examination with no stricture or ulceration. 2. Small reducible hiatal hernia. Electronically signed by: Titi Coleman MD Board Certified Radiologist 03/15/2018 11:06 AM EST
--- NOTE | 2018-03-15 12:26 | P.PNNP ---
Subjective Interval history: Sitting up in bed. Generalized weakness. No shortness of breath, nausea, or vomiting. Barium swallow today. creatinine has increased at 7.2, urinary output however has improved with lasix. <Wandy Pathak - Last Filed: 03/15/18 12:18> Physical Exam Vital signs: Vital Signs 03/14/18 12:19 03/14/18 12:21 03/14/18 13:00 Temperature 98.5 F Pulse Rate 100 H Respiratory Rate 16 Blood Pressure 160/100 H Pulse Oximetry 99 98 03/14/18 13:18 03/14/18 14:00 03/14/18 14:18 Temperature Pulse Rate 94 H 94 H 97 H Respiratory Rate 16 17 18 Blood Pressure 131/90 151/91 H Pulse Oximetry 98 97 98 03/14/18 15:00 03/14/18 15:18 03/14/18 16:00 Temperature 99.0 F Pulse Rate 101 H 98 H 98 H Respiratory Rate 21 21 19 Blood Pressure 140/91 H Pulse Oximetry 99 98 97 03/14/18 16:18 03/14/18 17:00 03/14/18 17:18 Temperature Pulse Rate 94 H 96 H 101 H Respiratory Rate 18 18 16 Blood Pressure 136/85 123/81 Pulse Oximetry 98 98 98 03/14/18 18:00 03/14/18 18:18 03/14/18 19:00 Temperature Pulse Rate 90 91 H 88 Respiratory Rate 17 17 22 Blood Pressure 136/75 Pulse Oximetry 98 98 98 03/14/18 19:18 03/14/18 20:00 03/14/18 20:18 Temperature 99.5 F Pulse Rate 91 H 88 88 Respiratory Rate 20 20 20 Blood Pressure 125/82 140/84 Pulse Oximetry 97 97 95 03/14/18 21:00 03/14/18 21:18 03/14/18 22:00 Temperature Pulse Rate 91 H 91 H 88 Respiratory Rate 20 14 18 Blood Pressure 118/75 Pulse Oximetry 95 96 96 03/14/18 22:18 03/14/18 23:00 03/14/18 23:18 Temperature Pulse Rate 94 H 89 82 Respiratory Rate 18 17 18 Blood Pressure 142/74 H 118/77 Pulse Oximetry 97 97 96 03/15/18 00:00 03/15/18 00:18 03/15/18 01:00 Temperature 99.4 F Pulse Rate 83 82 83 Respiratory Rate 14 15 16 Blood Pressure 126/79 Pulse Oximetry 96 97 97 03/15/18 01:18 03/15/18 02:00 03/15/18 02:18 Temperature Pulse Rate 84 98 H 110 H Respiratory Rate 14 19 39 H Blood Pressure 125/76 157/88 H Pulse Oximetry 97 97 03/15/18 03:00 03/15/18 03:18 03/15/18 04:00 Temperature 98.9 F Pulse Rate 87 85 97 H Respiratory Rate 13 16 19 Blood Pressure 132/86 Pulse Oximetry 97 97 98 03/15/18 04:18 03/15/18 05:00 03/15/18 05:18 Temperature Pulse Rate 105 H 89 84 Respiratory Rate 29 H 16 15 Blood Pressure 140/61 146/83 H Pulse Oximetry 97 97 03/15/18 06:00 03/15/18 06:18 03/15/18 07:00 Temperature Pulse Rate 84 82 82 Respiratory Rate 20 16 16 Blood Pressure 128/84 Pulse Oximetry 97 97 98 03/15/18 07:18 03/15/18 08:00 03/15/18 08:18 Temperature 98.8 F Pulse Rate 78 79 74 Respiratory Rate 12 18 19 Blood Pressure 136/84 113/81 Pulse Oximetry 98 98 98 03/15/18 09:00 03/15/18 09:18 03/15/18 10:00 Temperature Pulse Rate 85 89 95 H Respiratory Rate 18 21 Blood Pressure 145/84 H Pulse Oximetry 98 97 03/15/18 11:17 Temperature Pulse Rate Respiratory Rate Blood Pressure Pulse Oximetry 97 Intake & Output 03/14/18 03/15/18 03/15/18 18:59 06:59 18:59 Intake Total 700 / 700 1530 / 1530 50 / 50 Output Total 520 / 520 1120 / 1120 Balance 180 / 180 410 / 410 50 / 50 Weight 68.7 kg Intake: IV 100 / 100 1050 / 1050 50 / 50 D5W/LR + KCL 20 mEq Inj 1,000 1000 / 1000 ML @ 75 mls/hr IV.SIG .[id number] [facility] Rx#:[id number] Zosyn 2.25 GM Premix 2.25 gm In 100 / 100 50 / 50 50 / 50 50 ml @ 100 mls/hr IV.SIG Q8H [facility] Rx#:[id number] Oral 600 / 600 480 / 480 Output: Urine Amount (Catheter) 220 / 220 250 / 250 Indwelling Urethral Catheter 220 / 220 250 / 250 Urine Amount (Stoma) 300 / 300 870 / 870 Nephrostomy Tube Left 300 / 300 870 / 870 Other: Bladder Irrigation Fluid - Amount Instilled Indwelling Urethral Catheter 50 50 Date of Last Bowel Movement 03/14/18 03/15/18 03/15/18 # Bowel Movements 0 1 Narrative: GENERAL: Alert and oriented. Thin SKIN: Warm and dry. NECK: Supple, trachea midline. No JVD CARDIOVASCULAR: Tachycardia. Regular rate and rhythm without murmurs, gallops, or rubs. RESPIRATORY: Breath sounds equal bilaterally. No accessory muscle use. GASTROINTESTINAL: Abdomen soft, non-tender, nondistended. +BS GI: Left nephrostomy tube and indwelling Caldwell catheter with bloody drainage. MUSCULOSKELETAL: No cyanosis, or edema. . . - Urinary Catheter Management Indwelling Urethral Catheter Cath placed during this visit: yes Reason for continuing: Other continuation reason Insertion date: 03/09/18 <Wandy Pathak - Last Filed: 03/15/18 12:18> Vital signs: Vital Signs 03/14/18 21:00 03/14/18 21:18 03/14/18 22:00 Temperature Pulse Rate 91 H 91 H 88 Respiratory Rate 20 14 18 Blood Pressure 118/75 Pulse Oximetry 95 96 96 03/14/18 22:18 03/14/18 23:00 03/14/18 23:18 Temperature Pulse Rate 94 H 89 82 Respiratory Rate 18 17 18 Blood Pressure 142/74 H 118/77 Pulse Oximetry 97 97 96 03/15/18 00:00 03/15/18 00:18 03/15/18 01:00 Temperature 99.4 F Pulse Rate 83 82 83 Respiratory Rate 14 15 16 Blood Pressure 126/79 Pulse Oximetry 96 97 97 03/15/18 01:18 03/15/18 02:00 03/15/18 02:18 Temperature Pulse Rate 84 98 H 110 H Respiratory Rate 14 19 39 H Blood Pressure 125/76 157/88 H Pulse Oximetry 97 97 03/15/18 03:00 03/15/18 03:18 03/15/18 04:00 Temperature 98.9 F Pulse Rate 87 85 97 H Respiratory Rate 13 16 19 Blood Pressure 132/86 Pulse Oximetry 97 97 98 03/15/18 04:18 03/15/18 05:00 03/15/18 05:18 Temperature Pulse Rate 105 H 89 84 Respiratory Rate 29 H 16 15 Blood Pressure 140/61 146/83 H Pulse Oximetry 97 97 03/15/18 06:00 03/15/18 06:18 03/15/18 07:00 Temperature Pulse Rate 84 82 82 Respiratory Rate 20 16 16 Blood Pressure 128/84 Pulse Oximetry 97 97 98 03/15/18 07:18 03/15/18 08:00 03/15/18 08:18 Temperature 98.8 F Pulse Rate 78 79 74 Respiratory Rate 12 18 19 Blood Pressure 136/84 113/81 Pulse Oximetry 98 98 98 03/15/18 09:00 03/15/18 09:18 03/15/18 10:00 Temperature Pulse Rate 85 89 95 H Respiratory Rate 18 21 Blood Pressure 145/84 H Pulse Oximetry 98 97 03/15/18 10:59 03/15/18 11:00 03/15/18 11:17 Temperature Pulse Rate 93 H 92 H Respiratory Rate 21 Blood Pressure Pulse Oximetry 99 97 03/15/18 11:18 03/15/18 12:00 03/15/18 12:18 Temperature Pulse Rate 88 87 86 Respiratory Rate 15 17 17 Blood Pressure 153/96 H 143/86 H Pulse Oximetry 98 98 98 03/15/18 13:00 03/15/18 13:18 03/15/18 14:00 Temperature Pulse Rate 86 93 H 91 H Respiratory Rate 17 21 22 Blood Pressure 152/96 H Pulse Oximetry 98 99 99 03/15/18 14:13 03/15/18 14:18 03/15/18 15:00 Temperature 98.7 F Pulse Rate 90 88 84 Respiratory Rate 17 16 19 Blood Pressure 152/96 H 158/96 H Pulse Oximetry 98 99 98 03/15/18 15:18 03/15/18 16:00 03/15/18 16:18 Temperature Pulse Rate 92 H 88 97 H Respiratory Rate 17 17 17 Blood Pressure 145/92 H 135/82 Pulse Oximetry 98 97 97 03/15/18 17:00 03/15/18 17:18 03/15/18 17:50 Temperature Pulse Rate 95 H 94 H 110 H Respiratory Rate 18 18 Blood Pressure 138/87 Pulse Oximetry 98 98 Intake & Output 03/15/18 03/15/18 03/16/18 06:59 18:59 06:59 Intake Total 1530 / 1530 940 / 940 Output Total 1120 / 1120 925 / 925 Balance 410 / 410 15 / 15 Weight 68.7 kg Intake: IV 1050 / 1050 50 / 50 D5W/LR + KCL 20 mEq Inj 1,000 1000 / 1000 ML @ 75 mls/hr IV.SIG .[id number] [facility] Rx#:[id number] Zosyn 2.25 GM Premix 2.25 gm In 50 / 50 50 / 50 50 ml @ 100 mls/hr IV.SIG Q8H [facility] Rx#:[id number] Oral 480 / 480 240 / 240 Other 250 / 250 Rbc As-3 Leukoreduced Unit 250 / 250 [id number] Intake (Blood Product) Amt 400 / 400 Rbc As-3 Leukoreduced Unit 400 / 400 [id number] Output: Urine Amount (Catheter) 250 / 250 200 / 200 Indwelling Urethral Catheter 250 / 250 200 / 200 Urine Amount (Stoma) 870 / 870 725 / 725 Nephrostomy Tube Left 870 / 870 725 / 725 Other: Bladder Irrigation Fluid - Amount Instilled Indwelling Urethral Catheter 50 Date of Last Bowel Movement 03/15/18 03/15/18 # Bowel Movements 1 0 - Urinary Catheter Management Indwelling Urethral Catheter Cath placed during this visit: no <Jorge Scott Q - Last Filed: 03/15/18 20:54> Assessment and Plan - Assessment (1) Acute kidney injury Code(s): N17.9 - Acute kidney failure, unspecified Status: Acute Plan: [place] possible prerenal vs ATN from vancomycin toxicity and GI losses. Urine EOS negative Repeat Renal ultrasound with known horseshoe kidney. There is no hydronephrosis on the right. There is moderate dilatation of the collecting system on the left with very poor delineation of the renal cortex. There is a 4 cm complex fluid collection around the nephrostomy. There is moderate free fluid present in the pelvis. Avoid nephrotoxins including IV contrast and NSAIDS Creatinine has increased at 7.2 today, urinary output however has improved. Continue lasix BID. Fluid and electrolytes remain stable and urinary output has improved. Will continue to monitor for now. D/W the patient for possible Dialysis Labs in AM (2) Hypertension Code(s): I10 - Essential (primary) hypertension Status: Acute Plan: Blood pressure well controlled. On hydralazine and metoprolol (3) Sepsis Code(s): A41.9 - Sepsis, unspecified organism Status: Acute Plan: On antibiotics, renal dose as indicated. (4) Hydronephrosis of left kidney Code(s): N13.30 - Unspecified hydronephrosis Status: Chronic Onset Date: Unknown Plan: S/p nephrostomy tube Urology managing. (5) Anemia Code(s): D64.9 - Anemia, unspecified Status: Acute Plan: HGB at 7.8, plan for transfusion today. Transfuse for HGB less than 7.0 <Wandy Pathak - Last Filed: 03/15/18 12:18> - Assessment (1) Acute kidney injury Code(s): N17.9 - Acute kidney failure, unspecified Status: Acute Plan: Patient seen and examined, agree with above. Urine out put is better, Creatinine continue to increase. No urgent need for Dialysis. If continue to get worse, may need Dialysis. (2) Hypertension Code(s): I10 - Essential (primary) hypertension Status: Acute (3) Sepsis Code(s): A41.9 - Sepsis, unspecified organism Status: Acute (4) Hydronephrosis of left kidney Code(s): N13.30 - Unspecified hydronephrosis Status: Chronic Onset Date: Unknown (5) Anemia Code(s): D64.9 - Anemia, unspecified Status: Acute <Jorge Luis Scott - Last Filed: 03/15/18 20:54>
--- NOTE | 2018-03-15 14:18 | P.DIET ---
Nutritional Evaluation Type of nutrition evaluation: initial (Patient transferred from [facility]) Nutrition consult regarding: Diet Evaluation Nutrition screening: [facility] Screening comments: 03/12 [facility] Malnutrition/diet evaluation 03/14 [facility] malnutrition Subjective Barriers to Nutrition: Swallowing problem Oral Diet Tolerance Assessment Indicates: Poor intake due to pain Subjective Comments: Refused breakfast today. Objective - Diagnosis Abdominal pain, hydronephrosis - Objective % IBW: 81 (IBW:166lbs) Body Weight Used for Calculations: Actual (59.3kg) Energy Needs - Lower Range (kCal/kg): 30 Energy Needs - Upper Range (kCal/kg): 35 Lower Limit kCal/kg (kCals): 1,779 Upper Limit kCal/kg (kCals): 2,076 Lower Limit Protein Factor (Grams per Kg): 1.2 Upper Limit Protein Factor (Grams per Kg): 1.5 Lower Protein Needs (Protein): 71 Upper Protein Needs (Protein): 90 Dietitian Reviewed in Medical Record: Current diet, Curent medications, Intake & Output, Labs, Medical history Diet Order: Cardiac, Mighty Shakes tid Objective Comments: PMH: asthma, seizures Assessment Assessment: Pt at nutritional risk r/t current clinical status. Pt admitted with abdominal pain, hydronephrosis of L kidney. Pt c/o problems swallowing, noted speech consult evaluation indicates pt can have a regular diet and MBS indicates swallow function is wnl. Pt's nutritional needs as assessed above. Pt is underweight at 81% of his ideal body weight. Noted concern for low alb, however , albumin is no longer an indicator of nutritional status and is a negative- acute phase reactant relative to the presence of inflammation in the body. Pt's current PO intake is poor per nursing. Pt is receiving Mighty Shakes TID, each contains 300kcals and 9gms protein. GI work-up in progress. RD following. Recommendations: Cardiac diet with mighty shakes tid RD will follow. Dietitian to Monitor: Lab values, Supplement acceptance, Diet tolerance, Weight change, PO Intake, Swallow recommendations, Medical course
[2018-03-15 17:01] LABS: INR 1.1 Ratio; Prothrombin Time 11.3 sec (9.8-11.6)
--- NOTE | 2018-03-15 17:05 | P.PNIM ---
Subjective Interval history: Patient reports that he has no pain. No shortness of breath. Doing okay at this time. Physical Exam Vital signs: Vital Signs 03/14/18 17:00 03/14/18 17:18 03/14/18 18:00 Temperature Pulse Rate 96 H 101 H 90 Respiratory Rate 18 16 17 Blood Pressure 123/81 Pulse Oximetry 98 98 98 03/14/18 18:18 03/14/18 19:00 03/14/18 19:18 Temperature Pulse Rate 91 H 88 91 H Respiratory Rate 17 22 20 Blood Pressure 136/75 125/82 Pulse Oximetry 98 98 97 03/14/18 20:00 03/14/18 20:18 03/14/18 21:00 Temperature 99.5 F Pulse Rate 88 88 91 H Respiratory Rate 20 20 20 Blood Pressure 140/84 Pulse Oximetry 97 95 95 03/14/18 21:18 03/14/18 22:00 03/14/18 22:18 Temperature Pulse Rate 91 H 88 94 H Respiratory Rate 14 18 18 Blood Pressure 118/75 142/74 H Pulse Oximetry 96 96 97 03/14/18 23:00 03/14/18 23:18 03/15/18 00:00 Temperature 99.4 F Pulse Rate 89 82 83 Respiratory Rate 17 18 14 Blood Pressure 118/77 Pulse Oximetry 97 96 96 03/15/18 00:18 03/15/18 01:00 03/15/18 01:18 Temperature Pulse Rate 82 83 84 Respiratory Rate 15 16 14 Blood Pressure 126/79 125/76 Pulse Oximetry 97 97 97 03/15/18 02:00 03/15/18 02:18 03/15/18 03:00 Temperature Pulse Rate 98 H 110 H 87 Respiratory Rate 19 39 H 13 Blood Pressure 157/88 H Pulse Oximetry 97 97 03/15/18 03:18 03/15/18 04:00 03/15/18 04:18 Temperature 98.9 F Pulse Rate 85 97 H 105 H Respiratory Rate 16 19 29 H Blood Pressure 132/86 140/61 Pulse Oximetry 97 98 03/15/18 05:00 03/15/18 05:18 03/15/18 06:00 Temperature Pulse Rate 89 84 84 Respiratory Rate 16 15 20 Blood Pressure 146/83 H Pulse Oximetry 97 97 97 03/15/18 06:18 03/15/18 07:00 03/15/18 07:18 Temperature Pulse Rate 82 82 78 Respiratory Rate 16 16 12 Blood Pressure 128/84 136/84 Pulse Oximetry 97 98 98 03/15/18 08:00 03/15/18 08:18 03/15/18 09:00 Temperature 98.8 F Pulse Rate 79 74 85 Respiratory Rate 18 19 18 Blood Pressure 113/81 Pulse Oximetry 98 98 98 03/15/18 09:18 03/15/18 10:00 03/15/18 10:59 Temperature Pulse Rate 89 95 H 93 H Respiratory Rate 21 Blood Pressure 145/84 H Pulse Oximetry 97 03/15/18 11:00 03/15/18 11:17 03/15/18 11:18 Temperature Pulse Rate 92 H 88 Respiratory Rate 21 15 Blood Pressure 153/96 H Pulse Oximetry 99 97 98 03/15/18 12:00 03/15/18 12:18 03/15/18 13:00 Temperature Pulse Rate 87 86 86 Respiratory Rate 17 17 17 Blood Pressure 143/86 H Pulse Oximetry 98 98 98 03/15/18 13:18 03/15/18 14:00 03/15/18 14:13 Temperature 98.7 F Pulse Rate 93 H 91 H 90 Respiratory Rate 21 22 17 Blood Pressure 152/96 H 152/96 H Pulse Oximetry 99 99 98 03/15/18 14:18 03/15/18 15:00 03/15/18 15:18 Temperature Pulse Rate 88 84 92 H Respiratory Rate 16 19 17 Blood Pressure 158/96 H 145/92 H Pulse Oximetry 99 98 98 03/15/18 16:00 Temperature Pulse Rate 83 Respiratory Rate Blood Pressure Pulse Oximetry Intake & Output 03/14/18 03/15/18 03/15/18 18:59 06:59 18:59 Intake Total 700 / 700 1530 / 1530 700 / 700 Output Total 520 / 520 1120 / 1120 Balance 180 / 180 410 / 410 700 / 700 Weight 68.7 kg Intake: IV 100 / 100 1050 / 1050 50 / 50 D5W/LR + KCL 20 mEq Inj 1,000 1000 / 1000 ML @ 75 mls/hr IV.SIG .[id number] [facility] Rx#:[id number] Zosyn 2.25 GM Premix 2.25 gm In 100 / 100 50 / 50 50 / 50 50 ml @ 100 mls/hr IV.SIG Q8H [facility] Rx#:[id number] Oral 600 / 600 480 / 480 Other 250 / 250 Rbc As-3 Leukoreduced Unit 250 / 250 [id number] Intake (Blood Product) Amt 400 / 400 Rbc As-3 Leukoreduced Unit 400 / 400 [id number] Output: Urine Amount (Catheter) 220 / 220 250 / 250 Indwelling Urethral Catheter 220 / 220 250 / 250 Urine Amount (Stoma) 300 / 300 870 / 870 Nephrostomy Tube Left 300 / 300 870 / 870 Other: Bladder Irrigation Fluid - Amount Instilled Indwelling Urethral Catheter 50 50 Date of Last Bowel Movement 03/14/18 03/15/18 03/15/18 # Bowel Movements 0 1 Narrative: Well-nourished well-developed white male laying in bed in the intensive care unit in no acute distress Cardiovascular regular rate and rhythm Lungs relatively clear to auscultation bilaterally Abdomen soft nontender nondistended positive bowel sounds nephrostomy tubes in place with hematuria Neurological exam alert and oriented x 3moves all 4 extremities Urinary Catheter Management Indwelling Urethral Catheter: Cath placed during this visit: yes Reason for continuing: Other continuation reason Insertion date: 03/09/18 Results Labs CBC & Chem 7: 03/15/18 06:31 03/15/18 06:31 Labs: Microbiology 03/13/18 13:15 Clean Catch Urine Urine Culture - Final No growth in 48 hours Imaging Imaging: Impressions Barium Swallow X-Ray 03/15/18 00:00 CONCLUSION: 1. Limited examination with no stricture or ulceration. 2. Small reducible hiatal hernia. 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 He was admitted and seen by urology who arranged for percutaneous nephrostomy tube by IR on 03/08. Subsequently, patient continued to have gross hematuria require transfusion 2 units on 03/08 first and then again 2 units on March 11. Patient also developed acute renal failure and symptoms of dysphagia Septic shock by [facility] definition white hypotension responsive to fluids with presenting lactic acid of 6.9 /severe sepsis due to pyelonephritison Zosyn day #8, Last vancomycin dose was 2/2 and stopped due to acute renal failure, blood cultures negative, urine culture negative; discontinue Zosyn and monitor patient clinically off antibiotics. Severe hydronephrosis with UPJ obstruction with left horseshoe kidney status post percutaneous nephrostomy tube placement by IR on 03/08. Continue management per urology. Acute renal failure likely due to acute tubular necrosis vancomycin and sepsis and previous obstruction with worsening creatinine to 7patient continues to have urine output. Nephrology monitoring, on IV Lasixmay need hemodialysis if creatinine worsens. IV fluids changed to D5 half-normal saline at 50 cc monitor I and O closely Anemia due to acute blood loss for mandatory is status post 4 units of total transfusionwill monitor hemoglobin Severe protein calorie malnutrition with albumin 2.0, generalized weakness continue mighty shakes supplements, dietitian consultation Dysphagianormals barium swallow, for EGD in the morning with GI. Continue Protonix Hypertension history Bilateral pleural effusion with bibasilar atelectasisencourage incentive spirometry usecurrently on Lasix, decrease IVF Asthma history no acute exacerbation nebs as needed DVT prophylaxisno anticoagulation due to hematuria, SCD Physical therapy evaluation Progress Note: Quality VTE Deep Vein Thrombosis/Pulmonary Embolism Present on Admission: No _ (1) Dysphagia Qualifiers: Dysphagia type:
[2018-03-15] MEDS: Dextrose 5%/NaCl 0.45% Inj 1,000 ML IV.CONT SCH (17:34)
[2018-03-16 06:49] LABS: Baso # (Auto) 0.1 th/mm3 (0.0-0.2); Baso % (Auto) 0.5 % (0.0-2.0); Eos # (Auto) 0.4 th/mm3 (0.0-0.4); Eos % (Auto) 2.8 % (0.0-4.0); Hematocrit 27.3 % (39.0-51.0); Hemoglobin 9.3 gm/dL (13.0-17.0); Lymph # (Auto) 0.9 th/mm3 (1.0-4.8); Lymph % (Auto) 7.5 % (9.0-44.0); Mean Corpuscular HGB Conc 33.9 % (32.0-36.0); Mean Corpuscular Hemoglobin 29.4 pg (27.0-34.0); Mean Corpuscular Volume 86.7 fL (80.0-100.0); Mean Platelet Volume 7.9 fL (7.0-11.0); Mono # (Auto) 1.4 th/mm3 (0.0-0.9); Mono % (Auto) 11.4 % (0.0-8.0); Neut # (Auto) 9.7 th/mm3 (1.8-7.7); Neut % (Auto) 77.8 % (16.0-70.0); Platelet Count 376 th/mm3 (150-450); Red Blood Count 3.15 mil/mm3 (4.50-5.90); Red Cell Distribution Width 15.5 % (11.6-17.2); White Blood Count 12.5 th/mm3 (4.0-11.0)
[2018-03-16 07:06] LABS: Potassium 3.4 meq/L (3.5-5.1)
[2018-03-16] MEDS ORDERED: Lidocaine PF 1% Inj 5 ML Syringe OTHER ONE (09:05)
--- NOTE | 2018-03-16 09:55 | P.PCN ---
Date of procedure: 03/16/18 Pre-op diagnosis: Dysphagia Post-op diagnosis: other (Esophageal stricture, chronic gastritis) Procedure: INDICATION: Dysphagia PROCEDURE PERFORMED: upper endoscopy with biopsy and esophageal dilation, Savary 18 mm The nature and risks of the procedure were explained to the patient. The risk of aspiration, perforation, bleeding, phlebitis and were explained to the patient. After informing the patient about procedure and possible complications consent was signed. history and physical were updated. ANESTHESIA: Adequate sedation was performed by anesthesia provider. PROCEDURE: Upper Endoscopy, the scope was placed in the mouth advanced under video guide to the second portion of the duodenum. The scope was then slowly withdrawn through the stomach and retro-flexion was performed to examine the cardia, the scope was then withdrawn through the esophagus with good views obtained throughout. The scope was then withdrawn out of the mouth without any immediate complications. FINDIINGS: Esophagus: Z line identified at 39 cm normal esophageal mucosa. There was a hint of tracheal isolation of the esophagus so biopsies were obtained from the esophagus. Due to his dysphagia and appearance of the esophagus savary dilation was done. A savary guidewire was advanced through the scope and positioned in the antrum scope was then exchanged out. A single pass with an 18 mm savary dilator was then made. Minimal resistance was felt. Stomach: Direct and retroflexed views were obtained throughout the stomach. There is normal gastric mucosa with some atrophy and scattered mild erythema. Biopsies obtained from the gastric antrum for histopathology. No ulcerations or erosions were seen. No new or old blood seen. Retroflex revealed a normal cardia no hiatal hernia. Duodenum: Bulb and second portion normal. IMPRESSION: Esophageal stricture status post dilation. Mild chronic gastritis biopsy COMPLICATIONS: None BLOOD LOSS: None RECOMMENDATIONS: 1- Supportive care 2- ok to transfer to recovery area then discharge per protocol 3-clear liquids for 24 hours and then advance diet as tolerated. 4-avoid anticoagulants for the next 72 hours per 5- EGD can be repeated if patient does not eat he will be a candidate for PEG tube placement 6-we will follow with you while patient is in the hospital to assess response to intervention. Anesthesia: MAC Surgeon: Wilfred Ortiz Pathology: other (Gastric antrum, esophagus- distal and proximal) Condition: stable Disposition: floor
--- NOTE | 2018-03-16 11:02 | P.PNURO ---
Subjective Patient symptoms today: Pt seen and examined. S/P EGD this AM. Creatinine up to 8.1. Hgb up to 9.3 s/p transfusion yesterday. Objective Vital Signs: Vital Signs 03/15/18 11:17 03/15/18 11:18 03/15/18 12:00 Temperature Pulse Rate 88 87 Respiratory Rate 15 17 Blood Pressure 153/96 H Pulse Oximetry 97 98 98 03/15/18 12:18 03/15/18 13:00 03/15/18 13:18 Temperature Pulse Rate 86 86 93 H Respiratory Rate 17 17 21 Blood Pressure 143/86 H 152/96 H Pulse Oximetry 98 98 99 03/15/18 14:00 03/15/18 14:13 03/15/18 14:18 Temperature 98.7 F Pulse Rate 91 H 90 88 Respiratory Rate 22 17 16 Blood Pressure 152/96 H 158/96 H Pulse Oximetry 99 98 99 03/15/18 15:00 03/15/18 15:18 03/15/18 16:00 Temperature Pulse Rate 84 92 H 88 Respiratory Rate 19 17 17 Blood Pressure 145/92 H Pulse Oximetry 98 98 97 03/15/18 16:18 03/15/18 17:00 03/15/18 17:18 Temperature Pulse Rate 97 H 95 H 94 H Respiratory Rate 17 18 18 Blood Pressure 135/82 138/87 Pulse Oximetry 97 98 98 03/15/18 17:50 03/15/18 18:00 03/15/18 18:18 Temperature Pulse Rate 110 H 89 88 Respiratory Rate 18 13 Blood Pressure 139/87 Pulse Oximetry 98 98 03/15/18 19:00 03/15/18 19:18 03/15/18 20:00 Temperature 99.0 F Pulse Rate 86 90 96 H Respiratory Rate 17 21 22 Blood Pressure 129/89 Pulse Oximetry 98 98 99 03/15/18 20:18 03/15/18 21:00 03/15/18 21:18 Temperature Pulse Rate 86 93 H 91 H Respiratory Rate 14 16 20 Blood Pressure 162/93 H 140/92 H Pulse Oximetry 98 97 97 03/15/18 22:00 03/15/18 22:18 03/15/18 23:00 Temperature Pulse Rate 91 H 93 H 86 Respiratory Rate 17 21 13 Blood Pressure 143/90 H Pulse Oximetry 97 96 97 03/15/18 23:18 03/16/18 00:00 03/16/18 00:18 Temperature 98.8 F Pulse Rate 88 90 86 Respiratory Rate 16 15 15 Blood Pressure 128/90 142/92 H Pulse Oximetry 97 97 93 L 03/16/18 01:00 03/16/18 01:18 03/16/18 02:00 Temperature Pulse Rate 83 83 85 Respiratory Rate 11 L 16 16 Blood Pressure 151/93 H Pulse Oximetry 97 97 97 03/16/18 02:18 03/16/18 03:00 03/16/18 03:18 Temperature Pulse Rate 84 85 85 Respiratory Rate 13 15 16 Blood Pressure 140/93 H 167/92 H Pulse Oximetry 97 96 97 03/16/18 04:00 03/16/18 04:18 03/16/18 05:00 Temperature Pulse Rate 87 88 88 Respiratory Rate 15 15 16 Blood Pressure 143/99 H Pulse Oximetry 97 98 98 03/16/18 05:18 03/16/18 06:00 03/16/18 06:18 Temperature Pulse Rate 85 91 H 86 Respiratory Rate 15 21 16 Blood Pressure 146/93 H 155/96 H Pulse Oximetry 98 98 97 03/16/18 08:33 03/16/18 09:55 03/16/18 10:00 Temperature 98.7 F 98.3 F Pulse Rate 92 H 100 H 96 H Respiratory Rate 18 16 15 Blood Pressure 167/99 H 119/80 136/83 Pulse Oximetry 95 97 97 Intake & Output 03/15/18 03/16/18 03/16/18 18:59 06:59 18:59 Intake Total 940 / 940 240 / 240 700 / 700 Output Total 925 / 925 1295 / 1295 Balance 15 -1055 / -1055 700 / 700 Weight 67.9 kg Intake: IV 50 / 50 Zosyn 2.25 GM Premix 2.25 gm In 50 / 50 50 ml @ 100 mls/hr IV.SIG Q8H [facility] Rx#:[id number] Oral 240 / 240 240 / 240 Anesthesia Amount 700 / 700 Other 250 / 250 Rbc As-3 Leukoreduced Unit 250 / 250 [id number] Intake (Blood Product) Amt 400 / 400 Rbc As-3 Leukoreduced Unit 400 / 400 [id number] Output: Urine Amount (Catheter) 200 / 200 325 / 325 Indwelling Urethral Catheter 200 / 200 325 / 325 Urine Amount (Stoma) 725 / 725 970 / 970 Nephrostomy Tube Left 725 / 725 970 / 970 Other: Bladder Irrigation Fluid - Amount Instilled Indwelling Urethral Catheter 20 Date of Last Bowel Movement 03/15/18 03/15/18 # Bowel Movements 0 Result Diagrams: 03/16/18 06:02 03/16/18 06:02 Imaging: Impressions Barium Swallow X-Ray 03/15/18 00:00 CONCLUSION: 1. Limited examination with no stricture or ulceration. 2. Small reducible hiatal hernia. Medications and IVs: Active Medications Generic Name Dose Route Start Last Admin Trade Name Freq PRN Reason Stop Dose Admin Acetaminophen 650 mg 03/07/18 23:05 03/11/18 12:26 Tylenol PO 650 mg Q4H PRN Administration Temp > 100.4 Belladonna Alkaloids/Opium 60 mg 03/10/18 15:43 B & O Supp RECTAL Q6HR PRN BLADDER SPASM Furosemide 40 mg 03/15/18 09:00 03/16/18 10:23 Lasix Inj IV.PUSH 40 mg BID@0900,1800 [facility] Administration Hydralazine HCl 25 mg 03/12/18 19:23 Apresoline PO TID [facility] Dextrose/Sodium Chloride 1,000 mls @ 50 mls/hr 03/15/18 17:06 03/15/18 17:34 D5w/1/2 Ns Inj IV.CONT 50 mls/hr .Q20H [facility] Administration Metoprolol Tartrate 12.5 mg 03/11/18 09:00 03/15/18 20:12 Lopressor PO 12.5 mg BID [facility] Administration Miscellaneous 1 each 03/11/18 10:00 03/15/18 08:51 Pill Splitter OTHER 1 each UNSCH [facility] Administration Miscellaneous Information 1 each 03/16/18 09:50 Misc Nursing Information OTHER 03/17/18 09:49 UNSCH PRN SEE LABEL COMMENTS Morphine Sulfate 1 mg 03/13/18 08:58 03/15/18 08:54 Morphine Inj IV.PUSH 1 mg Q4H PRN Administration pain 1 to 10 Ondansetron HCl 4 mg 03/07/18 23:05 03/13/18 23:30 Zofran Inj IV.PUSH 4 mg Q6H PRN Administration NAUSEA OR VOMITING Pantoprazole Sodium 40 mg 03/13/18 15:45 03/15/18 08:50 Protonix PO 40 mg DAILY [facility] Administration Polyethylene Glycol 17 gm 03/09/18 14:24 03/09/18 21:14 Miralax PO 17 gm DAILY PRN Administration Moderate-severe constipation Senna/Docusate Sodium 1 tab 03/09/18 21:00 03/15/18 20:14 Allyssa-Colace PO Not Given BID [facility] Sodium Chloride 2 ml 03/08/18 09:00 03/16/18 10:23 Ns Flush IV.FLUSH Not Given BID [facility] Sodium Chloride 2 ml 03/07/18 23:05 Ns Flush IV.FLUSH PRN PRN FLUSH AFTER USING IV ACCESS Objective Remarks: CV: sinus tach Abd:soft, mild distension; no rebound Price: old dark blood Ext: neg C/C/E 03/10 CV: sinus tach Abd:soft,less tenderness and distension Price: blood tinged PCNT: bloody 03/10 16:00: SP pains. Bladder not palpable. No SP tenderness. Abd: now non tender LLQ. Bloody urine via nephrostomy, no clots. Bloody urine via price catheter, no clots. 03/11: Scant urine output via Nephrostomy tube. It may not be draining, will wait and see. Fairly good urine output via price catheter. Urine dark blood tinged, no clots. BP varies high to normal, Pulse varies, temp 99. 03/12: See "Subjective" for the Objective. Suspect Vancomycin toxicity causing deterioration in kidney function and decreased urine output. N tube draining dark burgundy urine. PLAN: Dr. Little following the labs. N tube irrigation by IR if needed. 03/13 Abd:soft,nt,nd Left PNCT with blood Price: hematuria 03/14 Abd:soft,nt,nd Left PCNT: bloody Price: blood tinged 03/15 Abd:soft,nt,nd Left PCNT: bloody Price: blood tinged 03/16 Abd:soft,nt,nd Left PCNT: bloody Price: blood tinged Assessment and Plan - Assessment (1) Sepsis due to urinary tract infection Code(s): A41.9 - Sepsis, unspecified organism; N39.0 - Urinary tract infection, site not specified Status: Acute Onset Date: ~03/07/18 (2) Hydronephrosis of left kidney Code(s): N13.30 - Unspecified hydronephrosis Status: Chronic (3) 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 Back up plan is to try to place a urinary stent cystoscopically in the OR. However, there is a great possibility that the presumed UPJ stenosis will prevent passage of guide wires and stent. 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 Discussed with Dr. Little. 03/11: N tube may or may not be draining. Sepsis improving. Still having bladder spasms, receiving Morphine. PLAN: Continue same. 03/12 See "Subjective", "Objective". 03/13 37 y.o male with sepsis and h/o horseshoe kidney s/p PCNT placement with hematuria Continue supportive measures for now Transfuse PRBC's today if repeat Hgb is below 8 Monitor u/o; avoid nephrotoxins Will follow. 03/14 37 y.o male with sepsis and horseshoe kidney s/p PCNT with hematuria and ARF Hgb stablized at 8.3 this AM. Creatinine rising to 5.7; u/o dropping Await Nephrology input Monitor u/o Continue conservative measures for now. 03/15 37 y.o male with sepsis and horseshoe kidney s/p PCNT with hematuria and worsening ARF. Creatinine up to 7.2 up from 5.7. Hgb down to 7.8. Will transfuse 1 unit PRBC's. Await Nephrology input Monitor u/o. 03/16 37 y.o male with sepsis and horseshoe kidney s/p PCNT with hematuria and worsening ARF probably due to ATN Continue conservative management from standpoint. No evidence of active bleeding. Will follow.
[2018-03-16] MEDS: Metoprolol Tartrate 25 MG Tablet PO SCH ×2 (11:11→20:46)
[2018-03-16] MEDS: Senna/Docusate Sodium 8.6/50 MG Tablet PO SCH ×2 (11:11→20:47)
--- NOTE | 2018-03-16 12:45 | P.PNIM ---
Subjective Interval history: No overnight events, no fever or chills. No significant pain in the back, just generally weak. Making some urine, bloody. Physical Exam Vital signs: Vital Signs 03/15/18 13:00 03/15/18 13:18 03/15/18 14:00 Temperature Pulse Rate 86 93 H 91 H Respiratory Rate 17 21 22 Blood Pressure 152/96 H Pulse Oximetry 98 99 99 03/15/18 14:13 03/15/18 14:18 03/15/18 15:00 Temperature 98.7 F Pulse Rate 90 88 84 Respiratory Rate 17 16 19 Blood Pressure 152/96 H 158/96 H Pulse Oximetry 98 99 98 03/15/18 15:18 03/15/18 16:00 03/15/18 16:18 Temperature Pulse Rate 92 H 88 97 H Respiratory Rate 17 17 17 Blood Pressure 145/92 H 135/82 Pulse Oximetry 98 97 97 03/15/18 17:00 03/15/18 17:18 03/15/18 17:50 Temperature Pulse Rate 95 H 94 H 110 H Respiratory Rate 18 18 Blood Pressure 138/87 Pulse Oximetry 98 98 03/15/18 18:00 03/15/18 18:18 03/15/18 19:00 Temperature Pulse Rate 89 88 86 Respiratory Rate 18 13 17 Blood Pressure 139/87 Pulse Oximetry 98 98 98 03/15/18 19:18 03/15/18 20:00 03/15/18 20:18 Temperature 99.0 F Pulse Rate 90 96 H 86 Respiratory Rate 21 22 14 Blood Pressure 129/89 162/93 H Pulse Oximetry 98 99 98 03/15/18 21:00 03/15/18 21:18 03/15/18 22:00 Temperature Pulse Rate 93 H 91 H 91 H Respiratory Rate 16 20 17 Blood Pressure 140/92 H Pulse Oximetry 97 97 97 03/15/18 22:18 03/15/18 23:00 03/15/18 23:18 Temperature Pulse Rate 93 H 86 88 Respiratory Rate 21 13 16 Blood Pressure 143/90 H 128/90 Pulse Oximetry 96 97 97 03/16/18 00:00 03/16/18 00:18 03/16/18 01:00 Temperature 98.8 F Pulse Rate 90 86 83 Respiratory Rate 15 15 11 L Blood Pressure 142/92 H Pulse Oximetry 97 93 L 97 03/16/18 01:18 03/16/18 02:00 03/16/18 02:18 Temperature Pulse Rate 83 85 84 Respiratory Rate 16 16 13 Blood Pressure 151/93 H 140/93 H Pulse Oximetry 97 97 97 03/16/18 03:00 03/16/18 03:18 03/16/18 04:00 Temperature Pulse Rate 85 85 87 Respiratory Rate 15 16 15 Blood Pressure 167/92 H Pulse Oximetry 96 97 97 03/16/18 04:18 03/16/18 05:00 03/16/18 05:18 Temperature Pulse Rate 88 88 85 Respiratory Rate 15 16 15 Blood Pressure 143/99 H 146/93 H Pulse Oximetry 98 98 98 03/16/18 06:00 03/16/18 06:18 03/16/18 07:00 Temperature Pulse Rate 91 H 86 88 Respiratory Rate 21 16 12 Blood Pressure 155/96 H Pulse Oximetry 98 97 98 03/16/18 07:18 03/16/18 08:00 03/16/18 08:18 Temperature 99.1 F Pulse Rate 90 91 H 107 H Respiratory Rate 18 14 30 H Blood Pressure 156/97 H Pulse Oximetry 97 97 99 03/16/18 08:33 03/16/18 09:55 03/16/18 10:00 Temperature 98.7 F 98.3 F Pulse Rate 92 H 100 H 96 H Respiratory Rate 18 16 15 Blood Pressure 167/99 H 119/80 136/83 Pulse Oximetry 95 97 97 03/16/18 10:45 03/16/18 10:46 03/16/18 11:00 Temperature Pulse Rate 108 H 87 Respiratory Rate 23 Blood Pressure 171/104 H 165/103 H Pulse Oximetry 96 96 03/16/18 11:14 03/16/18 11:44 03/16/18 12:00 Temperature 99.2 F Pulse Rate 91 H 97 H 94 H Respiratory Rate 18 18 18 Blood Pressure 164/96 H 154/97 H Pulse Oximetry 96 96 97 03/16/18 12:14 Temperature Pulse Rate 95 H Respiratory Rate 24 Blood Pressure 151/91 H Pulse Oximetry 97 Intake & Output 03/15/18 03/16/18 03/16/18 18:59 06:59 18:59 Intake Total 940 / 940 240 / 240 700 / 700 Output Total 925 / 925 1295 / 1295 Balance -1055 / -1055 700 / 700 Weight 67.9 kg Intake: IV 50 / 50 Zosyn 2.25 GM Premix 2.25 gm In 50 / 50 50 ml @ 100 mls/hr IV.SIG Q8H [facility] Rx#:[id number] Oral 240 / 240 240 / 240 Anesthesia Amount 700 / 700 Other 250 / 250 Rbc As-3 Leukoreduced Unit 250 / 250 [id number] Intake (Blood Product) Amt 400 / 400 Rbc As-3 Leukoreduced Unit 400 / 400 [id number] Output: Urine Amount (Catheter) 200 / 200 325 / 325 Indwelling Urethral Catheter 200 / 200 325 / 325 Urine Amount (Stoma) 725 / 725 970 / 970 Nephrostomy Tube Left 725 / 725 970 / 970 Other: Bladder Irrigation Fluid - Amount Instilled Indwelling Urethral Catheter 20 Date of Last Bowel Movement 03/15/18 03/15/18 03/15/18 # Bowel Movements 0 Narrative: Not in distress, appears sick, very weak. Pale conjunctivae, anicteric, pupils equal round reactive Jugular pulsations visible, no JVD Regular rate and rhythm, no murmurs Clear breath sounds Abdomen soft nontender, nephrostomy tube draining sanguinous urine. No edema Alert awake and oriented x3, no cranial nerve deficits, no focal deficits. 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 He was admitted and seen by urology who arranged for percutaneous nephrostomy tube by IR on 03/08. Subsequently, patient continued to have gross hematuria require transfusion 2 units on 03/08 first and then again 2 units on March 11. Patient also developed acute renal failure and symptoms of dysphagia Septic shock due to pyelonephritisstatus post 8 days of Zosyn, last vancomycin dose was 2/2 and stopped due to acute renal failure, blood cultures negative, urine culture negative; discontinue Zosyn and monitor patient clinically off antibiotics. Afebrile, check CBC tomorrow. Severe hydronephrosis with UPJ obstruction with left horseshoe kidney- status post percutaneous nephrostomy tube placement by IR on 03/08. Continue management per urology. Acute renal failure likely due to acute tubular necrosis vancomycin and sepsis and previous obstruction with worsening creatinine with history of normal creatinine/kidney function.patient continues to have urine output. Nephrology monitoring, may need hemodialysis if creatinine worsens. Repeat renal ultrasound did not show any hydronephrosis on the right. Avoid NSAIDs, avoid contrast. Continue Lasix, recheck BMP tomorrow. IVF per nephrology. Anemia due to acute blood loss for mandatory is status post 4 units of total transfusioncontinue to monitor CBC and transfuse as needed. Severe protein calorie malnutrition with albumin 2.0, generalized weakness continue mighty shakes supplements, dietitian consultation Dysphagianormals barium swallow, status post EGD, gastroenterology on board, showed esophageal stricture status post dilation, follow-up biopsy, probably with chronic gastritis, continue Protonix. Hypertension-controlled, continue hydralazine, metoprolol Bilateral pleural effusion with bibasilar atelectasisencourage incentive spirometry usecurrently on Lasix Asthma history no acute exacerbation nebs as needed DVT prophylaxisno anticoagulation due to hematuria, SCD Physical therapy evaluation Keep in the ICU, transfer tomorrow if still stable. Progress Note: Quality VTE Deep Vein Thrombosis/Pulmonary Embolism Present on Admission: No _ (1) Dysphagia Qualifiers: Dysphagia type:
--- NOTE | 2018-03-16 12:51 | P.PNNP ---
Subjective Interval history: S/P EGD and esophageal dilatation. Reports some generalized discomfort. No shortness of breath, edema, nausea, or vomiting. Creatinine has increased at 8.1 , urinary output is adequate. <GloryrobbMemeWandy - Last Filed: 03/16/18 12:46> Physical Exam Vital signs: Vital Signs 03/15/18 13:00 03/15/18 13:18 03/15/18 14:00 Temperature Pulse Rate 86 93 H 91 H Respiratory Rate 17 21 22 Blood Pressure 152/96 H Pulse Oximetry 98 99 99 03/15/18 14:13 03/15/18 14:18 03/15/18 15:00 Temperature 98.7 F Pulse Rate 90 88 84 Respiratory Rate 17 16 19 Blood Pressure 152/96 H 158/96 H Pulse Oximetry 98 99 98 03/15/18 15:18 03/15/18 16:00 03/15/18 16:18 Temperature Pulse Rate 92 H 88 97 H Respiratory Rate 17 17 17 Blood Pressure 145/92 H 135/82 Pulse Oximetry 98 97 97 03/15/18 17:00 03/15/18 17:18 03/15/18 17:50 Temperature Pulse Rate 95 H 94 H 110 H Respiratory Rate 18 18 Blood Pressure 138/87 Pulse Oximetry 98 98 03/15/18 18:00 03/15/18 18:18 03/15/18 19:00 Temperature Pulse Rate 89 88 86 Respiratory Rate 18 13 17 Blood Pressure 139/87 Pulse Oximetry 98 98 98 03/15/18 19:18 03/15/18 20:00 03/15/18 20:18 Temperature 99.0 F Pulse Rate 90 96 H 86 Respiratory Rate 21 22 14 Blood Pressure 129/89 162/93 H Pulse Oximetry 98 99 98 03/15/18 21:00 03/15/18 21:18 03/15/18 22:00 Temperature Pulse Rate 93 H 91 H 91 H Respiratory Rate 16 20 17 Blood Pressure 140/92 H Pulse Oximetry 97 97 97 03/15/18 22:18 03/15/18 23:00 03/15/18 23:18 Temperature Pulse Rate 93 H 86 88 Respiratory Rate 21 13 16 Blood Pressure 143/90 H 128/90 Pulse Oximetry 96 97 97 03/16/18 00:00 03/16/18 00:18 03/16/18 01:00 Temperature 98.8 F Pulse Rate 90 86 83 Respiratory Rate 15 15 11 L Blood Pressure 142/92 H Pulse Oximetry 97 93 L 97 03/16/18 01:18 03/16/18 02:00 03/16/18 02:18 Temperature Pulse Rate 83 85 84 Respiratory Rate 16 16 13 Blood Pressure 151/93 H 140/93 H Pulse Oximetry 97 97 97 03/16/18 03:00 03/16/18 03:18 03/16/18 04:00 Temperature Pulse Rate 85 85 87 Respiratory Rate 15 16 15 Blood Pressure 167/92 H Pulse Oximetry 96 97 97 03/16/18 04:18 03/16/18 05:00 03/16/18 05:18 Temperature Pulse Rate 88 88 85 Respiratory Rate 15 16 15 Blood Pressure 143/99 H 146/93 H Pulse Oximetry 98 98 98 03/16/18 06:00 03/16/18 06:18 03/16/18 07:00 Temperature Pulse Rate 91 H 86 88 Respiratory Rate 21 16 12 Blood Pressure 155/96 H Pulse Oximetry 98 97 98 03/16/18 07:18 03/16/18 08:00 03/16/18 08:18 Temperature 99.1 F Pulse Rate 90 91 H 107 H Respiratory Rate 18 14 30 H Blood Pressure 156/97 H Pulse Oximetry 97 97 99 03/16/18 08:33 03/16/18 09:55 03/16/18 10:00 Temperature 98.7 F 98.3 F Pulse Rate 92 H 100 H 96 H Respiratory Rate 18 16 15 Blood Pressure 167/99 H 119/80 136/83 Pulse Oximetry 95 97 97 03/16/18 10:45 03/16/18 10:46 03/16/18 11:00 Temperature Pulse Rate 108 H 87 Respiratory Rate 23 Blood Pressure 171/104 H 165/103 H Pulse Oximetry 96 96 03/16/18 11:14 03/16/18 11:44 03/16/18 12:00 Temperature 99.2 F Pulse Rate 91 H 97 H 94 H Respiratory Rate 18 18 18 Blood Pressure 164/96 H 154/97 H Pulse Oximetry 96 96 97 03/16/18 12:14 Temperature Pulse Rate 95 H Respiratory Rate 24 Blood Pressure 151/91 H Pulse Oximetry 97 Intake & Output 03/15/18 03/16/18 03/16/18 18:59 06:59 18:59 Intake Total 940 / 940 240 / 240 700 / 700 Output Total 925 / 925 1295 / 1295 Balance 15 / 15 -1055 / -1055 700 / 700 Weight 67.9 kg Intake: IV 50 / 50 Zosyn 2.25 GM Premix 2.25 gm In 50 / 50 50 ml @ 100 mls/hr IV.SIG Q8H [facility] Rx#:[id number] Oral 240 / 240 240 / 240 Anesthesia Amount 700 / 700 Other 250 / 250 Rbc As-3 Leukoreduced Unit 250 / 250 [id number] Intake (Blood Product) Amt 400 / 400 Rbc As-3 Leukoreduced Unit 400 / 400 [id number] Output: Urine Amount (Catheter) 200 / 200 325 / 325 Indwelling Urethral Catheter 200 / 200 325 / 325 Urine Amount (Stoma) 725 / 725 970 / 970 Nephrostomy Tube Left 725 / 725 970 / 970 Other: Bladder Irrigation Fluid - Amount Instilled Indwelling Urethral Catheter 20 Date of Last Bowel Movement 03/15/18 03/15/18 03/15/18 # Bowel Movements 0 Narrative: GENERAL: Alert and oriented. Thin SKIN: Warm and dry. NECK: Supple, trachea midline. No JVD CARDIOVASCULAR: Tachycardia. Regular rate and rhythm without murmurs, gallops, or rubs. RESPIRATORY: Breath sounds equal bilaterally. No accessory muscle use. GASTROINTESTINAL: Abdomen soft, non-tender, nondistended. +BS GI: Left nephrostomy tube and indwelling Caldwell catheter with bloody drainage. MUSCULOSKELETAL: No cyanosis, or edema. . . - Urinary Catheter Management Indwelling Urethral Catheter Cath placed during this visit: yes Reason for continuing: Gross Hematuria Insertion date: 03/09/18 <Wandy Pathak - Last Filed: 03/16/18 12:46> Vital signs: Vital Signs 03/15/18 21:00 03/15/18 21:18 03/15/18 22:00 Temperature Pulse Rate 93 H 91 H 91 H Respiratory Rate 16 20 17 Blood Pressure 140/92 H Pulse Oximetry 97 97 97 03/15/18 22:18 03/15/18 23:00 03/15/18 23:18 Temperature Pulse Rate 93 H 86 88 Respiratory Rate 21 13 16 Blood Pressure 143/90 H 128/90 Pulse Oximetry 96 97 97 03/16/18 00:00 03/16/18 00:18 03/16/18 01:00 Temperature 98.8 F Pulse Rate 90 86 83 Respiratory Rate 15 15 11 L Blood Pressure 142/92 H Pulse Oximetry 97 93 L 97 03/16/18 01:18 03/16/18 02:00 03/16/18 02:18 Temperature Pulse Rate 83 85 84 Respiratory Rate 16 16 13 Blood Pressure 151/93 H 140/93 H Pulse Oximetry 97 97 97 03/16/18 03:00 03/16/18 03:18 03/16/18 04:00 Temperature Pulse Rate 85 85 87 Respiratory Rate 15 16 15 Blood Pressure 167/92 H Pulse Oximetry 96 97 97 03/16/18 04:18 03/16/18 05:00 03/16/18 05:18 Temperature Pulse Rate 88 88 85 Respiratory Rate 15 16 15 Blood Pressure 143/99 H 146/93 H Pulse Oximetry 98 98 98 03/16/18 06:00 03/16/18 06:18 03/16/18 07:00 Temperature Pulse Rate 91 H 86 88 Respiratory Rate 21 16 12 Blood Pressure 155/96 H Pulse Oximetry 98 97 98 03/16/18 07:18 03/16/18 08:00 03/16/18 08:18 Temperature 99.1 F Pulse Rate 90 91 H 107 H Respiratory Rate 18 14 30 H Blood Pressure 156/97 H Pulse Oximetry 97 97 99 03/16/18 08:33 03/16/18 09:55 03/16/18 10:00 Temperature 98.7 F 98.3 F Pulse Rate 92 H 100 H 96 H Respiratory Rate 18 16 15 Blood Pressure 167/99 H 119/80 136/83 Pulse Oximetry 95 97 97 03/16/18 10:45 03/16/18 10:46 03/16/18 11:00 Temperature Pulse Rate 108 H 87 Respiratory Rate 23 Blood Pressure 171/104 H 165/103 H Pulse Oximetry 96 96 03/16/18 11:14 03/16/18 11:44 03/16/18 12:00 Temperature 99.2 F Pulse Rate 91 H 97 H 94 H Respiratory Rate 18 18 18 Blood Pressure 164/96 H 154/97 H Pulse Oximetry 96 96 97 03/16/18 12:14 03/16/18 12:35 03/16/18 13:00 Temperature Pulse Rate 95 H 97 H 96 H Respiratory Rate 24 23 25 H Blood Pressure 151/91 H 157/92 H Pulse Oximetry 97 97 03/16/18 13:03 03/16/18 13:14 03/16/18 13:44 Temperature Pulse Rate 100 H 105 H 103 H Respiratory Rate 25 H 25 H 29 H Blood Pressure 162/101 H 162/105 H 191/94 H Pulse Oximetry 98 97 03/16/18 13:53 03/16/18 14:00 03/16/18 14:14 Temperature Pulse Rate 97 H 97 H 93 H Respiratory Rate 19 20 20 Blood Pressure 162/98 H 163/100 H Pulse Oximetry 97 97 97 03/16/18 14:44 03/16/18 15:00 03/16/18 15:14 Temperature Pulse Rate 90 90 87 Respiratory Rate 20 18 20 Blood Pressure 156/102 H 151/99 H Pulse Oximetry 97 97 97 03/16/18 15:44 03/16/18 16:00 03/16/18 16:14 Temperature 99.8 F H Pulse Rate 87 87 90 Respiratory Rate 19 22 22 Blood Pressure 154/102 H 155/101 H Pulse Oximetry 97 97 97 03/16/18 16:44 03/16/18 17:00 03/16/18 17:14 Temperature Pulse Rate 91 H 88 89 Respiratory Rate 21 20 23 Blood Pressure 162/99 H 154/101 H Pulse Oximetry 98 98 98 03/16/18 17:44 03/16/18 18:00 03/16/18 18:14 Temperature Pulse Rate 95 H 90 99 H Respiratory Rate 23 24 21 Blood Pressure 171/102 H 163/99 H Pulse Oximetry 98 97 98 03/16/18 19:00 03/16/18 19:14 Temperature Pulse Rate 98 H 98 H Respiratory Rate 21 25 H Blood Pressure 170/96 H Pulse Oximetry 98 98 Intake & Output 03/16/18 03/16/18 03/17/18 06:59 18:59 06:59 Intake Total 240 / 240 1940 / 1940 Output Total 1295 / 1295 1100 / 1100 Balance -1055 / -1055 840 / 840 Weight 67.9 kg Intake: IV 1000 / 1000 D5W/1/2 NS Inj 1,000 ML @ 50 1000 / 1000 mls/hr IV.CONT .Q20H [facility] Rx#: [id number] Oral 240 / 240 240 / 240 Anesthesia Amount 700 / 700 Output: Urine Amount (Catheter) 325 / 325 325 / 325 Indwelling Urethral Catheter 325 / 325 325 / 325 Urine Amount (Stoma) 970 / 970 775 / 775 Nephrostomy Tube Left 970 / 970 775 / 775 Other: Bladder Irrigation Fluid - Amount Instilled Indwelling Urethral Catheter 20 Date of Last Bowel Movement 03/15/18 03/16/18 # Bowel Movements 2 - Urinary Catheter Management Indwelling Urethral Catheter Cath placed during this visit: no <Jorge Luis Scott - Last Filed: 03/16/18 20:52> Assessment and Plan - Assessment (1) Acute kidney injury Code(s): N17.9 - Acute kidney failure, unspecified Status: Acute Plan: [place] possible ATN Urine EOS negative Repeat Renal ultrasound with known horseshoe kidney. There is no hydronephrosis on the right. There is moderate dilatation of the collecting system on the left with very poor delineation of the renal cortex. There is a 4 cm complex fluid collection around the nephrostomy. There is moderate free fluid present in the pelvis. Avoid nephrotoxins including IV contrast and NSAIDS Creatinine has increased at 8.1 today, urinary output adequate. Continue lasix BID. D/W the patient for possible Dialysis Will continue to monitor for now labs in AM Fluid and electrolytes remain stable and urinary output has improved. (2) Hypertension Code(s): I10 - Essential (primary) hypertension Status: Acute Plan: Blood pressure well controlled. On hydralazine and metoprolol (3) Sepsis Code(s): A41.9 - Sepsis, unspecified organism Status: Acute Plan: On antibiotics, renal dose as indicated. (4) Hydronephrosis of left kidney Code(s): N13.30 - Unspecified hydronephrosis Status: Chronic Onset Date: Unknown Plan: S/p nephrostomy tube Urology managing. (5) Anemia Code(s): D64.9 - Anemia, unspecified Status: Acute Plan: HGB at 9.3 Transfuse for HGB less than 7.0 <Wandy Pathak - Last Filed: 03/16/18 12:46> - Assessment (1) Acute kidney injury Code(s): N17.9 - Acute kidney failure, unspecified Status: Acute Plan: Patient seen and examined, agree with above. Creatinine continue to increase. Has no symptoms of uremia. No urgent need for Dialysis. D/W the patient and mother in detail. (2) Hypertension Code(s): I10 - Essential (primary) hypertension Status: Acute (3) Sepsis Code(s): A41.9 - Sepsis, unspecified organism Status: Acute (4) Hydronephrosis of left kidney Code(s): N13.30 - Unspecified hydronephrosis Status: Chronic Onset Date: Unknown (5) Anemia Code(s): D64.9 - Anemia, unspecified Status: Acute <Jorge Luis Scott - Last Filed: 03/16/18 20:52>
[2018-03-16] MEDS: Dextrose 5%/NaCl 0.45% Inj 1,000 ML IV.CONT SCH (13:37)
[2018-03-16] MEDS: Morphine Inj 4 MG/ML Vial IV.PUSH PRN ×2 (13:38→20:47)
[2018-03-17 05:59] LABS: Carbon Dioxide 21.8 meq/L (21.0-32.0); Potassium 3.1 meq/L (3.5-5.1)
[2018-03-17 06:12] LABS: Baso # (Auto) 0.1 th/mm3 (0.0-0.2); Baso % (Auto) 0.7 % (0.0-2.0); Eos # (Auto) 0.3 th/mm3 (0.0-0.4); Eos % (Auto) 2.5 % (0.0-4.0); Hematocrit 28.3 % (39.0-51.0); Hemoglobin 9.6 gm/dL (13.0-17.0); Lymph # (Auto) 1.3 th/mm3 (1.0-4.8); Lymph % (Auto) 10.3 % (9.0-44.0); Mean Corpuscular HGB Conc 34.1 % (32.0-36.0); Mean Corpuscular Hemoglobin 29.2 pg (27.0-34.0); Mean Corpuscular Volume 85.7 fL (80.0-100.0); Mean Platelet Volume 8.1 fL (7.0-11.0); Mono # (Auto) 1.5 th/mm3 (0.0-0.9); Mono % (Auto) 11.7 % (0.0-8.0); Neut # (Auto) 9.6 th/mm3 (1.8-7.7); Neut % (Auto) 74.8 % (16.0-70.0); Platelet Count 443 th/mm3 (150-450); Red Cell Distribution Width 15.3 % (11.6-17.2); White Blood Count 12.9 th/mm3 (4.0-11.0)
[2018-03-17] MEDS: Morphine Inj 4 MG/ML Vial IV.PUSH PRN ×2 (06:19→16:22)
[2018-03-17] MEDS: Metoprolol Tartrate 25 MG Tablet PO SCH ×2 (09:52→20:37)
[2018-03-17] MEDS: Senna/Docusate Sodium 8.6/50 MG Tablet PO SCH ×2 (09:53→20:37)
[2018-03-17] MEDS: Dextrose 5%/NaCl 0.45% Inj 1,000 ML IV.CONT SCH (09:53)
--- NOTE | 2018-03-17 10:31 | P.PNGI ---
Subjective Interval history: Patient lying comfortably in bed, tolerating full liquids well without nausea/ vomiting or dysphagia. Discussed procedure findings. No new complaints <Melinda Mcconnellah - Last Filed: 03/17/18 10:27> Physical Exam Vital signs: Vital Signs 03/16/18 10:45 03/16/18 10:46 03/16/18 11:00 Temperature Pulse Rate 108 H 87 Respiratory Rate 23 Blood Pressure 171/104 H 165/103 H Pulse Oximetry 96 96 03/16/18 11:14 03/16/18 11:44 03/16/18 12:00 Temperature 99.2 F Pulse Rate 91 H 97 H 94 H Respiratory Rate 18 18 18 Blood Pressure 164/96 H 154/97 H Pulse Oximetry 96 96 97 03/16/18 12:14 03/16/18 12:35 03/16/18 13:00 Temperature Pulse Rate 95 H 97 H 96 H Respiratory Rate 24 23 25 H Blood Pressure 151/91 H 157/92 H Pulse Oximetry 97 97 03/16/18 13:03 03/16/18 13:14 03/16/18 13:44 Temperature Pulse Rate 100 H 105 H 103 H Respiratory Rate 25 H 25 H 29 H Blood Pressure 162/101 H 162/105 H 191/94 H Pulse Oximetry 98 97 03/16/18 13:53 03/16/18 14:00 03/16/18 14:14 Temperature Pulse Rate 97 H 97 H 93 H Respiratory Rate 19 20 20 Blood Pressure 162/98 H 163/100 H Pulse Oximetry 97 97 97 03/16/18 14:44 03/16/18 15:00 03/16/18 15:14 Temperature Pulse Rate 90 90 87 Respiratory Rate 20 18 20 Blood Pressure 156/102 H 151/99 H Pulse Oximetry 97 97 97 03/16/18 15:44 03/16/18 16:00 03/16/18 16:14 Temperature 99.8 F H Pulse Rate 87 87 90 Respiratory Rate 19 22 22 Blood Pressure 154/102 H 155/101 H Pulse Oximetry 97 97 97 03/16/18 16:44 03/16/18 17:00 03/16/18 17:14 Temperature Pulse Rate 91 H 88 89 Respiratory Rate 21 20 23 Blood Pressure 162/99 H 154/101 H Pulse Oximetry 98 98 98 03/16/18 17:44 03/16/18 18:00 03/16/18 18:14 Temperature Pulse Rate 95 H 90 99 H Respiratory Rate 23 24 21 Blood Pressure 171/102 H 163/99 H Pulse Oximetry 98 97 98 03/16/18 19:00 03/16/18 19:14 03/16/18 20:00 Temperature 99.4 F Pulse Rate 105 H 98 H 94 H Respiratory Rate 21 25 H 20 Blood Pressure 170/96 H 170/96 H Pulse Oximetry 98 98 98 03/16/18 20:45 03/16/18 21:00 03/16/18 22:00 Temperature Pulse Rate 92 H 87 Respiratory Rate 20 20 20 Blood Pressure 158/99 H 157/92 H Pulse Oximetry 97 97 03/16/18 23:00 03/17/18 00:00 03/17/18 01:00 Temperature 99.2 F Pulse Rate 85 83 78 Respiratory Rate 20 18 18 Blood Pressure 149/94 H 149/89 H 150/86 H Pulse Oximetry 98 98 98 03/17/18 02:00 03/17/18 03:00 03/17/18 04:00 Temperature 99.5 F Pulse Rate 84 85 83 Respiratory Rate 18 20 18 Blood Pressure 141/83 H 157/88 H 139/86 Pulse Oximetry 97 97 97 03/17/18 05:00 03/17/18 06:00 03/17/18 06:20 Temperature Pulse Rate 82 96 H Respiratory Rate 18 18 20 Blood Pressure 148/86 H 150/89 H Pulse Oximetry 97 98 03/17/18 06:52 03/17/18 06:53 Temperature Pulse Rate 85 85 Respiratory Rate 18 Blood Pressure 149/88 H Pulse Oximetry 97 Intake & Output 03/16/18 03/17/18 03/17/18 18:59 06:59 18:59 Intake Total 1940 / 1940 650 / 650 1000 / 1000 Output Total 1100 / 1100 900 / 900 Balance 840 / 840 -250 / -250 1000 / 1000 Weight 66.8 kg Intake: IV 1000 / 1000 1000 / 1000 D5W/1/2 NS Inj 1,000 ML @ 50 1000 / 1000 1000 / 1000 mls/hr IV.CONT .Q20H [facility] Rx#: [id number] Oral 240 / 240 50 / 50 Anesthesia Amount 700 / 700 Other 600 / 600 Output: Urine Amount (Catheter) 325 / 325 250 / 250 Indwelling Urethral Catheter 325 / 325 250 / 250 Urine Amount (Stoma) 775 / 775 650 / 650 Nephrostomy Tube Left 775 / 775 650 / 650 Other: Date of Last Bowel Movement 03/16/18 # Bowel Movements 2 1 Narrative: . - Routine Abdominal Exam Present: soft, normoactive bowel sounds. Absent: tenderness, distended, rebound , organomegaly - Urinary Catheter Management Indwelling Urethral Catheter Cath placed during this visit: yes Reason for continuing: Gross Hematuria Insertion date: 03/09/18 <Kaelyn Mcconnell - Last Filed: 03/17/18 10:27> Vital signs: Vital Signs 03/16/18 14:14 03/16/18 14:44 03/16/18 15:00 Temperature Pulse Rate 93 H 90 90 Respiratory Rate 20 20 18 Blood Pressure 163/100 H 156/102 H Pulse Oximetry 97 97 97 03/16/18 15:14 03/16/18 15:44 03/16/18 16:00 Temperature 99.8 F H Pulse Rate 87 87 87 Respiratory Rate 20 19 22 Blood Pressure 151/99 H 154/102 H Pulse Oximetry 97 97 97 03/16/18 16:14 03/16/18 16:44 03/16/18 17:00 Temperature Pulse Rate 90 91 H 88 Respiratory Rate 22 21 20 Blood Pressure 155/101 H 162/99 H Pulse Oximetry 97 98 98 03/16/18 17:14 03/16/18 17:44 03/16/18 18:00 Temperature Pulse Rate 89 95 H 90 Respiratory Rate 23 23 24 Blood Pressure 154/101 H 171/102 H Pulse Oximetry 98 98 97 03/16/18 18:14 03/16/18 19:00 03/16/18 19:14 Temperature Pulse Rate 99 H 105 H 98 H Respiratory Rate 21 21 25 H Blood Pressure 163/99 H 170/96 H Pulse Oximetry 98 98 98 03/16/18 20:00 03/16/18 20:45 03/16/18 21:00 Temperature 99.4 F Pulse Rate 94 H 92 H Respiratory Rate 20 20 20 Blood Pressure 170/96 H 158/99 H Pulse Oximetry 98 97 03/16/18 22:00 03/16/18 23:00 03/17/18 00:00 Temperature 99.2 F Pulse Rate 87 85 83 Respiratory Rate 20 20 18 Blood Pressure 157/92 H 149/94 H 149/89 H Pulse Oximetry 97 98 98 03/17/18 01:00 03/17/18 02:00 03/17/18 03:00 Temperature 99.5 F Pulse Rate 78 84 85 Respiratory Rate 18 18 20 Blood Pressure 150/86 H 141/83 H 157/88 H Pulse Oximetry 98 97 97 03/17/18 04:00 03/17/18 05:00 03/17/18 06:00 Temperature Pulse Rate 83 82 96 H Respiratory Rate 18 18 18 Blood Pressure 139/86 148/86 H 150/89 H Pulse Oximetry 97 97 98 03/17/18 06:20 03/17/18 06:52 03/17/18 06:53 Temperature Pulse Rate 85 85 Respiratory Rate 20 18 Blood Pressure 149/88 H Pulse Oximetry 97 03/17/18 07:00 03/17/18 07:14 03/17/18 07:44 Temperature Pulse Rate 86 87 90 Respiratory Rate 16 16 18 Blood Pressure 149/86 H 145/99 H Pulse Oximetry 97 98 97 03/17/18 08:00 03/17/18 08:14 03/17/18 08:44 Temperature 99.5 F Pulse Rate 86 89 89 Respiratory Rate 15 15 16 Blood Pressure 164/93 H 142/91 H Pulse Oximetry 97 96 98 03/17/18 09:00 03/17/18 09:14 03/17/18 09:44 Temperature Pulse Rate 90 90 108 H Respiratory Rate 15 19 31 H Blood Pressure 149/95 H 164/103 H Pulse Oximetry 97 98 03/17/18 10:00 Temperature Pulse Rate 84 Respiratory Rate 23 Blood Pressure Pulse Oximetry 98 Intake & Output 03/16/18 03/17/18 03/17/18 18:59 06:59 18:59 Intake Total 1940 / 1940 650 / 650 1000 / 1000 Output Total 1100 / 1100 900 / 900 Balance 840 / 840 -250 / -250 1000 / 1000 Weight 66.8 kg Intake: IV 1000 / 1000 1000 / 1000 D5W/1/2 NS Inj 1,000 ML @ 50 1000 / 1000 1000 / 1000 mls/hr IV.CONT .Q20H [facility] Rx#: [id number] Oral 240 / 240 50 / 50 Anesthesia Amount 700 / 700 Other 600 / 600 Output: Urine Amount (Catheter) 325 / 325 250 / 250 Indwelling Urethral Catheter 325 / 325 250 / 250 Urine Amount (Stoma) 775 / 775 650 / 650 Nephrostomy Tube Left 775 / 775 650 / 650 Other: Date of Last Bowel Movement 03/16/18 03/17/18 # Bowel Movements 2 1 - Urinary Catheter Management Indwelling Urethral Catheter Cath placed during this visit: no <Wilfred Ortiz - Last Filed: 03/17/18 14:14> Results - Labs CBC & Chem 7: 03/17/18 04:49 03/17/18 04:49 Laboratory Results - last 24 hr 03/14/18 03/17/18 03/17/18 05:57 04:49 04:49 WBC 12.9 H RBC 3.30 L Hgb 9.6 L Hct 28.3 L MCV 85.7 MCH 29.2 MCHC 34.1 RDW 15.3 Plt Count 443 MPV 8.1 Neut % (Auto) 74.8 H Lymph % (Auto) 10.3 [place] % (Auto) 11.7 H Eos % (Auto) 2.5 Baso % (Auto) 0.7 Neut # (Auto) 9.6 H Lymph # (Auto) 1.3 [place] # (Auto) 1.5 H Eos # (Auto) 0.3 Baso # (Auto) 0.1 WBC Differential . Differential Comment Auto diff final Sodium 139 Potassium 3.1 L Chloride 107 Carbon Dioxide 21.8 Anion Gap 10 BUN 44 H Creatinine 8.76 H Estimated GFR 7 L Random Glucose 87 Calcium 8.0 L Anti-Proteinase 3 Less than 1.0 Anti-Myeloperoxidase Less than 1.0 <Kaelyn Mcconnell - Last Filed: 03/17/18 10:27> - Labs CBC & Chem 7: 03/17/18 04:49 03/17/18 04:49 Laboratory Results - last 24 hr 03/14/18 03/17/18 03/17/18 05:57 04:49 04:49 WBC 12.9 H RBC 3.30 L Hgb 9.6 L Hct 28.3 L MCV 85.7 MCH 29.2 MCHC 34.1 RDW 15.3 Plt Count 443 MPV 8.1 Neut % (Auto) 74.8 H Lymph % (Auto) 10.3 [place] % (Auto) 11.7 H Eos % (Auto) 2.5 Baso % (Auto) 0.7 Neut # (Auto) 9.6 H Lymph # (Auto) 1.3 [place] # (Auto) 1.5 H Eos # (Auto) 0.3 Baso # (Auto) 0.1 WBC Differential . Differential Comment Auto diff final Sodium 139 Potassium 3.1 L Chloride 107 Carbon Dioxide 21.8 Anion Gap 10 BUN 44 H Creatinine 8.76 H Estimated GFR 7 L Random Glucose 87 Calcium 8.0 L Stl C.difficile DNA Amp St C. diff Tox Epid 027 Anti-Proteinase 3 Less than 1.0 Anti-Myeloperoxidase Less than 1.0 03/17/18 11:13 WBC RBC Hgb Hct MCV MCH MCHC RDW Plt Count MPV Neut % (Auto) Lymph % (Auto) [place] % (Auto) Eos % (Auto) Baso % (Auto) Neut # (Auto) Lymph # (Auto) [place] # (Auto) Eos # (Auto) Baso # (Auto) WBC Differential Differential Comment Sodium Potassium Chloride Carbon Dioxide Anion Gap BUN Creatinine Estimated GFR Random Glucose Calcium Stl C.difficile DNA Amp Negative St C. diff Tox Epid 027 Negative Anti-Proteinase 3 Anti-Myeloperoxidase <Wilfred Ortiz - Last Filed: 03/17/18 14:14> Assessment and Plan - Plan 37 year old male with 20 pack-year history of smoking and acid reflux complains of new onset dysphagia for 5 days duration. Due to history, esophageal dysphagia caused by esophagitis (eosinophilic vs hanna's vs other) or stricture likely. 03/14/2018 Dysphasia- Awake and alert 03/14/2018 videofluoroscopic swallow--> Unremarkable modified swallow Patient endorses most difficulty with swallowing dry solid foods. Feels food stuck in throat then passes after clearing throat - Dysphasia Awake and alert Barium swallow reveals no stricture or mass, will schedule EGD for tomorrow. 03/17/18 Dysphasia EGD found mild gastritis. Dilation completed. Patient tolerating full liquids, will advance diet today. Plan - Advance diet to mechanical softs Patient seen and discussed with NICHOLE Ruiz MS4 <Kaelyn Mcconnell - Last Filed: 03/17/18 10:27> (1) Dysphagia Status: Acute Code(s): R13.10 - Dysphagia, unspecified - Plan Will advance diet as tolerated. - Attending Attestation I have seen and examined the patient and reviewed the relevant portions of the chart and discussed the patient's current complaints, results and findings with the ASSISTANT PROFESSOR OF CHEMISTRY and medical student. We have reviewed the therapeutic plan for the patient. I agree with the above assessment and recommendations as documented above. The patient's diet can be advanced as tolerated. If there is any further difficulty please reconsult us. We will sign off at this time. <Wilfred Ortiz - Last Filed: 03/17/18 14:14>
--- NOTE | 2018-03-17 10:41 | P.PNURO ---
Subjective Patient symptoms today: Pt seen and examined. Feels ok. Increased appetite. Creatinine at 8.7 and Hgb at 9.3. Objective Vital Signs: Vital Signs 03/16/18 10:45 03/16/18 10:46 03/16/18 11:00 Temperature Pulse Rate 108 H 87 Respiratory Rate 23 Blood Pressure 171/104 H 165/103 H Pulse Oximetry 96 96 03/16/18 11:14 03/16/18 11:44 03/16/18 12:00 Temperature 99.2 F Pulse Rate 91 H 97 H 94 H Respiratory Rate 18 18 18 Blood Pressure 164/96 H 154/97 H Pulse Oximetry 96 96 97 03/16/18 12:14 03/16/18 12:35 03/16/18 13:00 Temperature Pulse Rate 95 H 97 H 96 H Respiratory Rate 24 23 25 H Blood Pressure 151/91 H 157/92 H Pulse Oximetry 97 97 03/16/18 13:03 03/16/18 13:14 03/16/18 13:44 Temperature Pulse Rate 100 H 105 H 103 H Respiratory Rate 25 H 25 H 29 H Blood Pressure 162/101 H 162/105 H 191/94 H Pulse Oximetry 98 97 03/16/18 13:53 03/16/18 14:00 03/16/18 14:14 Temperature Pulse Rate 97 H 97 H 93 H Respiratory Rate 19 20 20 Blood Pressure 162/98 H 163/100 H Pulse Oximetry 97 97 97 03/16/18 14:44 03/16/18 15:00 03/16/18 15:14 Temperature Pulse Rate 90 90 87 Respiratory Rate 20 18 20 Blood Pressure 156/102 H 151/99 H Pulse Oximetry 97 97 97 03/16/18 15:44 03/16/18 16:00 03/16/18 16:14 Temperature 99.8 F H Pulse Rate 87 87 90 Respiratory Rate 19 22 22 Blood Pressure 154/102 H 155/101 H Pulse Oximetry 97 97 97 03/16/18 16:44 03/16/18 17:00 03/16/18 17:14 Temperature Pulse Rate 91 H 88 89 Respiratory Rate 21 20 23 Blood Pressure 162/99 H 154/101 H Pulse Oximetry 98 98 98 03/16/18 17:44 03/16/18 18:00 03/16/18 18:14 Temperature Pulse Rate 95 H 90 99 H Respiratory Rate 23 24 21 Blood Pressure 171/102 H 163/99 H Pulse Oximetry 98 97 98 03/16/18 19:00 03/16/18 19:14 03/16/18 20:00 Temperature 99.4 F Pulse Rate 105 H 98 H 94 H Respiratory Rate 21 25 H 20 Blood Pressure 170/96 H 170/96 H Pulse Oximetry 98 98 98 03/16/18 20:45 03/16/18 21:00 03/16/18 22:00 Temperature Pulse Rate 92 H 87 Respiratory Rate 20 20 20 Blood Pressure 158/99 H 157/92 H Pulse Oximetry 97 97 03/16/18 23:00 03/17/18 00:00 03/17/18 01:00 Temperature 99.2 F Pulse Rate 85 83 78 Respiratory Rate 20 18 18 Blood Pressure 149/94 H 149/89 H 150/86 H Pulse Oximetry 98 98 98 03/17/18 02:00 03/17/18 03:00 03/17/18 04:00 Temperature 99.5 F Pulse Rate 84 85 83 Respiratory Rate 18 20 18 Blood Pressure 141/83 H 157/88 H 139/86 Pulse Oximetry 97 97 97 03/17/18 05:00 03/17/18 06:00 03/17/18 06:20 Temperature Pulse Rate 82 96 H Respiratory Rate 18 18 20 Blood Pressure 148/86 H 150/89 H Pulse Oximetry 97 98 03/17/18 06:52 03/17/18 06:53 Temperature Pulse Rate 85 85 Respiratory Rate 18 Blood Pressure 149/88 H Pulse Oximetry 97 Intake & Output 03/16/18 03/17/18 03/17/18 18:59 06:59 18:59 Intake Total 1940 / 1940 650 / 650 1000 / 1000 Output Total 1100 / 1100 900 / 900 Balance 840 / 840 -250 / -250 1000 / 1000 Weight 66.8 kg Intake: IV 1000 / 1000 1000 / 1000 D5W/1/2 NS Inj 1,000 ML @ 50 1000 / 1000 1000 / 1000 mls/hr IV.CONT .Q20H [facility] Rx#: [id number] Oral 240 / 240 50 / 50 Anesthesia Amount 700 / 700 Other 600 / 600 Output: Urine Amount (Catheter) 325 / 325 250 / 250 Indwelling Urethral Catheter 325 / 325 250 / 250 Urine Amount (Stoma) 775 / 775 650 / 650 Nephrostomy Tube Left 775 / 775 650 / 650 Other: Date of Last Bowel Movement 03/16/18 # Bowel Movements 2 1 Result Diagrams: 03/17/18 04:49 03/17/18 04:49 Medications and IVs: Active Medications Generic Name Dose Route Start Last Admin Trade Name Freq PRN Reason Stop Dose Admin Acetaminophen 650 mg 03/07/18 23:05 03/11/18 12:26 Tylenol PO 650 mg Q4H PRN Administration Temp > 100.4 Belladonna Alkaloids/Opium 60 mg 03/10/18 15:43 B & O Supp RECTAL Q6HR PRN BLADDER SPASM Furosemide 40 mg 03/15/18 09:00 03/17/18 09:50 Lasix Inj IV.PUSH 40 mg BID@0900,1800 [facility]E Administration Hydralazine HCl 25 mg 03/12/18 19:23 Apresoline PO TID [facility]LOE Dextrose/Sodium Chloride 1,000 mls @ 50 mls/hr 03/15/18 17:06 03/17/18 09:53 D5w/1/2 Ns Inj IV.CONT 50 mls/hr .Q20H [facility] Administration Metoprolol Tartrate 12.5 mg 03/11/18 09:00 03/17/18 09:52 Lopressor PO 12.5 mg BID [facility]LOE Administration Miscellaneous 1 each 03/11/18 10:00 03/15/18 08:51 Pill Splitter OTHER 1 each UNSCH [facility]LOE Administration Morphine Sulfate 1 mg 03/13/18 08:58 03/17/18 06:19 Morphine Inj IV.PUSH 1 mg Q4H PRN Administration pain 1 to 10 Ondansetron HCl 4 mg 03/07/18 23:05 03/16/18 13:38 Zofran Inj IV.PUSH 4 mg Q6H PRN Administration NAUSEA OR VOMITING Pantoprazole Sodium 40 mg 03/13/18 15:45 03/17/18 09:52 Protonix PO 40 mg DAILY [facility]E Administration Polyethylene Glycol 17 gm 03/09/18 14:24 03/09/18 21:14 Miralax PO 17 gm DAILY PRN Administration Moderate-severe constipation Senna/Docusate Sodium 1 tab 03/09/18 21:00 03/17/18 09:53 Allyssa-Colace PO Not Given BID [facility] Sodium Chloride 2 ml 03/08/18 09:00 03/17/18 09:52 Ns Flush IV.FLUSH 2 ml BID [facility] Administration Sodium Chloride 2 ml 03/07/18 23:05 Ns Flush IV.FLUSH PRN PRN FLUSH AFTER USING IV ACCESS Objective Remarks: CV: sinus tach Abd:soft, mild distension; no rebound Price: old dark blood Ext: neg C/C/E 03/10 CV: sinus tach Abd:soft,less tenderness and distension Price: blood tinged PCNT: bloody 03/10 16:00: SP pains. Bladder not palpable. No SP tenderness. Abd: now non tender LLQ. Bloody urine via nephrostomy, no clots. Bloody urine via price catheter, no clots. 03/11: Scant urine output via Nephrostomy tube. It may not be draining, will wait and see. Fairly good urine output via price catheter. Urine dark blood tinged, no clots. BP varies high to normal, Pulse varies, temp 99. 03/12: See "Subjective" for the Objective. Suspect Vancomycin toxicity causing deterioration in kidney function and decreased urine output. N tube draining dark burgundy urine. PLAN: Dr. Little following the labs. N tube irrigation by IR if needed. 03/13 Abd:soft,nt,nd Left PNCT with blood Price: hematuria 03/14 Abd:soft,nt,nd Left PCNT: bloody Price: blood tinged 03/15 Abd:soft,nt,nd Left PCNT: bloody Price: blood tinged 03/16 Abd:soft,nt,nd Left PCNT: bloody Price: blood tinged 03/17 Abd:soft,nt,nd Left PCNT: bloody Price: blood tinged Assessment and Plan - Assessment (1) Sepsis due to urinary tract infection Code(s): A41.9 - Sepsis, unspecified organism; N39.0 - Urinary tract infection, site not specified Status: Acute Onset Date: ~03/07/18 (2) Hydronephrosis of left kidney Code(s): N13.30 - Unspecified hydronephrosis Status: Chronic (3) 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 Back up plan is to try to place a urinary stent cystoscopically in the OR. However, there is a great possibility that the presumed UPJ stenosis will prevent passage of guide wires and stent. 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 Discussed with Dr. Little. 03/11: N tube may or may not be draining. Sepsis improving. Still having bladder spasms, receiving Morphine. PLAN: Continue same. 03/12 See "Subjective", "Objective". 03/13 37 y.o male with sepsis and h/o horseshoe kidney s/p PCNT placement with hematuria Continue supportive measures for now Transfuse PRBC's today if repeat Hgb is below 8 Monitor u/o; avoid nephrotoxins Will follow. 03/14 37 y.o male with sepsis and horseshoe kidney s/p PCNT with hematuria and ARF Hgb stablized at 8.3 this AM. Creatinine rising to 5.7; u/o dropping Await Nephrology input Monitor u/o Continue conservative measures for now. 03/15 37 y.o male with sepsis and horseshoe kidney s/p PCNT with hematuria and worsening ARF. Creatinine up to 7.2 up from 5.7. Hgb down to 7.8. Will transfuse 1 unit PRBC's. Await Nephrology input Monitor u/o. 03/16 37 y.o male with sepsis and horseshoe kidney s/p PCNT with hematuria and worsening ARF probably due to ATN Continue conservative management from standpoint. No evidence of active bleeding. Will follow. 03/17 37 y.o male with sepsis s/p PCNT with hematuria and ARF Maintain price catheter- urine is clearing and less bloody Continue conservative measures.
[2018-03-17] MEDS ORDERED: Sod Chloride 0.9% Inj 1,000 ML IV.CONT PRN (11:03)
[2018-03-17] MEDS ORDERED: Acetaminophen 325 MG Tablet PO PRN (11:03)
[2018-03-17] MEDS ORDERED: Albumin Human 25% Inj 100 ML IV.SIG PRN (11:03)
[2018-03-17] MEDS ORDERED: Sod Chloride 0.9% Inj 1,000 ML OTHER PRN ×2 (11:03)
[2018-03-17] MEDS ORDERED: Gelatin 12 MM/7 MM Topical Foam TOPICAL PRN (11:03)
[2018-03-17] MEDS ORDERED: Heparin 10,000 UNITS/10 ML Vial (for IV use) OTHER PRN ×2 (11:03)
--- NOTE | 2018-03-17 11:33 | P.PNNP ---
Subjective Interval history: Sitting up in bed. Generalized weakness and poor appetite. Creatinine continues to increase at 8.7 today, non oliguric. <Wandy Pathak - Last Filed: 03/17/18 11:29> Physical Exam Vital signs: Vital Signs 03/16/18 11:44 03/16/18 12:00 03/16/18 12:14 Temperature 99.2 F Pulse Rate 97 H 94 H 95 H Respiratory Rate 18 18 24 Blood Pressure 154/97 H 151/91 H Pulse Oximetry 96 97 97 03/16/18 12:35 03/16/18 13:00 03/16/18 13:03 Temperature Pulse Rate 97 H 96 H 100 H Respiratory Rate 23 25 H 25 H Blood Pressure 157/92 H 162/101 H Pulse Oximetry 97 03/16/18 13:14 03/16/18 13:44 03/16/18 13:53 Temperature Pulse Rate 105 H 103 H 97 H Respiratory Rate 25 H 29 H 19 Blood Pressure 162/105 H 191/94 H 162/98 H Pulse Oximetry 98 97 97 03/16/18 14:00 03/16/18 14:14 03/16/18 14:44 Temperature Pulse Rate 97 H 93 H 90 Respiratory Rate 20 20 20 Blood Pressure 163/100 H 156/102 H Pulse Oximetry 97 97 97 03/16/18 15:00 03/16/18 15:14 03/16/18 15:44 Temperature Pulse Rate 90 87 87 Respiratory Rate 18 20 19 Blood Pressure 151/99 H 154/102 H Pulse Oximetry 97 97 97 03/16/18 16:00 03/16/18 16:14 03/16/18 16:44 Temperature 99.8 F H Pulse Rate 87 90 91 H Respiratory Rate 22 22 21 Blood Pressure 155/101 H 162/99 H Pulse Oximetry 97 97 98 03/16/18 17:00 03/16/18 17:14 03/16/18 17:44 Temperature Pulse Rate 88 89 95 H Respiratory Rate 20 23 23 Blood Pressure 154/101 H 171/102 H Pulse Oximetry 98 98 98 03/16/18 18:00 03/16/18 18:14 03/16/18 19:00 Temperature Pulse Rate 90 99 H 105 H Respiratory Rate 24 21 21 Blood Pressure 163/99 H Pulse Oximetry 97 98 98 03/16/18 19:14 03/16/18 20:00 03/16/18 20:45 Temperature 99.4 F Pulse Rate 98 H 94 H Respiratory Rate 25 H 20 20 Blood Pressure 170/96 H 170/96 H Pulse Oximetry 98 98 03/16/18 21:00 03/16/18 22:00 03/16/18 23:00 Temperature 99.2 F Pulse Rate 92 H 87 85 Respiratory Rate 20 20 20 Blood Pressure 158/99 H 157/92 H 149/94 H Pulse Oximetry 97 97 98 03/17/18 00:00 03/17/18 01:00 03/17/18 02:00 Temperature Pulse Rate 83 78 84 Respiratory Rate 18 18 18 Blood Pressure 149/89 H 150/86 H 141/83 H Pulse Oximetry 98 98 97 03/17/18 03:00 03/17/18 04:00 03/17/18 05:00 Temperature 99.5 F Pulse Rate 85 83 82 Respiratory Rate 20 18 18 Blood Pressure 157/88 H 139/86 148/86 H Pulse Oximetry 97 97 97 03/17/18 06:00 03/17/18 06:20 03/17/18 06:52 Temperature Pulse Rate 96 H 85 Respiratory Rate 18 20 18 Blood Pressure 150/89 H 149/88 H Pulse Oximetry 98 97 03/17/18 06:53 03/17/18 07:00 03/17/18 07:14 Temperature Pulse Rate 85 86 87 Respiratory Rate 16 16 Blood Pressure 149/86 H Pulse Oximetry 97 98 03/17/18 07:44 03/17/18 08:00 03/17/18 08:14 Temperature 99.5 F Pulse Rate 90 86 89 Respiratory Rate 18 15 15 Blood Pressure 145/99 H 164/93 H Pulse Oximetry 97 97 96 03/17/18 08:44 03/17/18 09:00 03/17/18 09:14 Temperature Pulse Rate 89 90 90 Respiratory Rate 16 15 19 Blood Pressure 142/91 H 149/95 H Pulse Oximetry 98 97 98 03/17/18 09:44 03/17/18 10:00 Temperature Pulse Rate 108 H 84 Respiratory Rate 31 H 23 Blood Pressure 164/103 H Pulse Oximetry 98 Intake & Output 03/16/18 03/17/18 03/17/18 18:59 06:59 18:59 Intake Total 1940 / 1940 650 / 650 1000 / 1000 Output Total 1100 / 1100 900 / 900 Balance 840 / 840 -250 / -250 1000 / 1000 Weight 66.8 kg Intake: IV 1000 / 1000 1000 / 1000 D5W/1/2 NS Inj 1,000 ML @ 50 1000 / 1000 1000 / 1000 mls/hr IV.CONT .Q20H [facility] Rx#: [id number] Oral 240 / 240 50 / 50 Anesthesia Amount 700 / 700 Other 600 / 600 Output: Urine Amount (Catheter) 325 / 325 250 / 250 Indwelling Urethral Catheter 325 / 325 250 / 250 Urine Amount (Stoma) 775 / 775 650 / 650 Nephrostomy Tube Left 775 / 775 650 / 650 Other: Date of Last Bowel Movement 03/16/18 # Bowel Movements 2 1 Narrative: . GENERAL: Alert and oriented. Thin SKIN: Warm and dry. NECK: Supple, trachea midline. No JVD CARDIOVASCULAR: Tachycardia. Regular rate and rhythm without murmurs, gallops, or rubs. RESPIRATORY: Breath sounds equal bilaterally. No accessory muscle use. GASTROINTESTINAL: Abdomen soft, non-tender, nondistended. +BS GI: Left nephrostomy tube and indwelling Caldwell catheter with bloody drainage. MUSCULOSKELETAL: No cyanosis, or edema. . - Urinary Catheter Management Indwelling Urethral Catheter Cath placed during this visit: yes Reason for continuing: Gross Hematuria Insertion date: 03/09/18 <Wandy Pathak - Last Filed: 03/17/18 11:29> Vital signs: Vital Signs 03/19/18 17:18 03/19/18 17:33 03/19/18 17:48 Temperature Pulse Rate 102 H 102 H 100 H Respiratory Rate 20 30 H 23 Blood Pressure 138/82 142/82 H 142/83 H Pulse Oximetry 98 97 97 03/19/18 18:00 03/19/18 18:03 03/19/18 18:18 Temperature Pulse Rate 97 H 98 H 104 H Respiratory Rate 20 24 21 Blood Pressure 138/82 134/79 Pulse Oximetry 97 97 98 03/19/18 18:33 03/19/18 18:48 03/19/18 19:00 Temperature 98.4 F Pulse Rate 108 H 114 H 108 H Respiratory Rate 19 17 21 Blood Pressure 136/78 132/79 Pulse Oximetry 97 97 98 03/19/18 19:03 03/19/18 19:18 03/19/18 19:33 Temperature Pulse Rate 106 H 102 H 96 H Respiratory Rate 17 19 30 H Blood Pressure 137/89 130/85 127/80 Pulse Oximetry 98 98 97 03/19/18 19:48 03/19/18 20:00 03/19/18 20:03 Temperature Pulse Rate 95 H 92 H 94 H Respiratory Rate 30 H 29 H 20 Blood Pressure 132/79 136/79 Pulse Oximetry 98 98 98 03/19/18 20:18 03/19/18 20:33 03/19/18 20:48 Temperature Pulse Rate 93 H 92 H 96 H Respiratory Rate 27 H 20 17 Blood Pressure 135/79 130/83 134/85 Pulse Oximetry 98 97 97 03/19/18 21:00 03/19/18 21:03 03/19/18 21:18 Temperature Pulse Rate 98 H 100 H 96 H Respiratory Rate 18 20 16 Blood Pressure 140/87 130/83 Pulse Oximetry 97 98 97 03/19/18 21:33 03/19/18 21:48 03/19/18 22:00 Temperature Pulse Rate 104 H 93 H 91 H Respiratory Rate 26 H 17 16 Blood Pressure 128/82 131/80 Pulse Oximetry 97 97 98 03/19/18 22:03 03/19/18 22:18 03/19/18 22:33 Temperature Pulse Rate 89 91 H 89 Respiratory Rate 19 16 18 Blood Pressure 131/82 130/82 133/80 Pulse Oximetry 97 96 97 03/19/18 22:48 03/19/18 23:00 03/19/18 23:03 Temperature Pulse Rate 91 H 89 91 H Respiratory Rate 18 19 18 Blood Pressure 131/82 121/79 Pulse Oximetry 97 97 97 03/19/18 23:18 03/19/18 23:33 03/19/18 23:48 Temperature Pulse Rate 89 87 87 Respiratory Rate 18 13 20 Blood Pressure 113/74 122/81 128/82 Pulse Oximetry 97 97 97 03/20/18 00:00 03/20/18 00:03 03/20/18 00:18 Temperature Pulse Rate 90 87 92 H Respiratory Rate 17 15 15 Blood Pressure 136/85 132/86 Pulse Oximetry 99 98 98 03/20/18 00:33 03/20/18 01:00 03/20/18 01:03 Temperature Pulse Rate 89 90 89 Respiratory Rate 18 19 15 Blood Pressure 136/86 130/84 Pulse Oximetry 97 96 98 03/20/18 01:18 03/20/18 01:33 03/20/18 01:48 Temperature Pulse Rate 88 92 H 88 Respiratory Rate 15 17 15 Blood Pressure 133/82 128/87 130/87 Pulse Oximetry 97 97 96 03/20/18 02:00 03/20/18 02:03 03/20/18 02:18 Temperature Pulse Rate 88 89 90 Respiratory Rate 16 18 21 Blood Pressure 142/86 H 139/86 Pulse Oximetry 97 97 95 03/20/18 02:33 03/20/18 02:48 03/20/18 03:00 Temperature Pulse Rate 88 87 90 Respiratory Rate 19 20 16 Blood Pressure 132/82 134/81 Pulse Oximetry 97 96 96 03/20/18 03:03 03/20/18 03:18 03/20/18 03:33 Temperature Pulse Rate 88 87 90 Respiratory Rate 16 16 15 Blood Pressure 140/82 140/83 145/80 H Pulse Oximetry 96 96 97 03/20/18 03:48 03/20/18 04:00 03/20/18 04:03 Temperature 98.9 F Pulse Rate 90 90 95 H Respiratory Rate 16 18 17 Blood Pressure 140/84 146/82 H 146/82 H Pulse Oximetry 97 97 98 03/20/18 04:18 03/20/18 04:33 03/20/18 04:48 Temperature Pulse Rate 89 92 H 95 H Respiratory Rate 15 15 19 Blood Pressure 144/82 H 137/82 141/84 H Pulse Oximetry 97 97 97 03/20/18 05:00 03/20/18 05:03 03/20/18 05:18 Temperature Pulse Rate 91 H 91 H 87 Respiratory Rate 17 17 14 Blood Pressure 143/85 H 138/85 Pulse Oximetry 97 97 96 03/20/18 05:33 03/20/18 05:48 03/20/18 06:00 Temperature Pulse Rate 87 86 95 H Respiratory Rate 15 16 17 Blood Pressure 155/83 H 151/87 H Pulse Oximetry 96 96 96 03/20/18 06:03 03/20/18 06:18 03/20/18 08:00 Temperature Pulse Rate 98 H 92 H Respiratory Rate 24 15 Blood Pressure 128/85 139/86 Pulse Oximetry 96 97 97 03/20/18 08:18 03/20/18 08:33 03/20/18 08:48 Temperature 98.6 F Pulse Rate 92 H 92 H 101 H Respiratory Rate 16 17 25 H Blood Pressure 138/86 139/84 135/90 Pulse Oximetry 97 96 96 03/20/18 09:00 03/20/18 09:03 03/20/18 09:33 Temperature Pulse Rate 90 95 H 104 H Respiratory Rate 17 19 27 H Blood Pressure 131/86 144/98 H Pulse Oximetry 97 97 03/20/18 09:48 03/20/18 10:00 03/20/18 10:03 Temperature Pulse Rate 105 H 105 H 98 H Respiratory Rate 30 H 22 15 Blood Pressure 139/87 130/93 H Pulse Oximetry 03/20/18 10:18 03/20/18 10:33 03/20/18 10:48 Temperature Pulse Rate 103 H 108 H 99 H Respiratory Rate 25 H 21 19 Blood Pressure 123/80 127/81 123/80 Pulse Oximetry 98 98 97 03/20/18 11:00 03/20/18 11:03 03/20/18 11:18 Temperature Pulse Rate 100 H 102 H 97 H Respiratory Rate 19 16 20 Blood Pressure 125/82 124/81 Pulse Oximetry 98 99 98 03/20/18 11:33 03/20/18 11:48 03/20/18 12:00 Temperature 98.8 F Pulse Rate 96 H 97 H 97 H Respiratory Rate 17 21 18 Blood Pressure 129/83 125/80 Pulse Oximetry 98 96 98 03/20/18 12:03 03/20/18 12:18 03/20/18 12:24 Temperature 98.8 F Pulse Rate 93 H 96 H 90 Respiratory Rate 17 19 21 Blood Pressure 122/79 118/80 118/80 Pulse Oximetry 98 97 98 03/20/18 12:33 03/20/18 12:48 03/20/18 13:00 Temperature Pulse Rate 86 89 86 Respiratory Rate 20 19 21 Blood Pressure 122/86 125/81 Pulse Oximetry 99 98 97 03/20/18 13:03 03/20/18 13:18 03/20/18 13:33 Temperature Pulse Rate 87 85 90 Respiratory Rate 19 19 20 Blood Pressure 124/82 125/82 140/91 H Pulse Oximetry 99 98 98 03/20/18 14:00 03/20/18 14:03 03/20/18 15:18 Temperature 99.3 F Pulse Rate 97 H 89 86 Respiratory Rate 18 20 14 Blood Pressure 150/91 H 135/89 Pulse Oximetry Intake & Output 03/19/18 03/20/18 03/20/18 18:59 06:59 18:59 Intake Total 1750 / 1750 240 / 240 400 / 400 Output Total 400 / 400 900 / 900 Balance 1350 / 1350 -660 / -660 400 / 400 Weight 67.6 kg Intake: IV 1000 / 1000 D5W/1/2 NS Inj 1,000 ML @ 50 1000 / 1000 mls/hr IV.CONT .Q20H [facility] Rx#: [id number] Oral 750 / 750 240 / 240 Intake (Blood Product) Amt 400 / 400 Rbc As-3 Leukoreduced Unit 0 / 0 [id number] Rbc As-3 Leukoreduced Unit 400 / 400 [id number] Output: Urine Amount (Catheter) 150 / 150 150 / 150 Indwelling Urethral Catheter 150 / 150 150 / 150 Urine Amount (Stoma) 750 / 750 Nephrostomy Tube Left 750 / 750 Wound Drainage 250 / 250 Left Posterior Chest 250 / 250 Other: Date of Last Bowel Movement 03/19/18 03/19/18 03/19/18 - Urinary Catheter Management Indwelling Urethral Catheter Cath placed during this visit: no <Jorge Luis Scott - Last Filed: 03/20/18 17:19> Assessment and Plan - Assessment (1) Acute kidney injury Code(s): N17.9 - Acute kidney failure, unspecified Status: Acute Plan: [place] possible ATN Urine EOS negative Repeat Renal ultrasound with known horseshoe kidney. There is no hydronephrosis on the right. There is moderate dilatation of the collecting system on the left with very poor delineation of the renal cortex. There is a 4 cm complex fluid collection around the nephrostomy. There is moderate free fluid present in the pelvis. Avoid nephrotoxins including IV contrast and NSAIDS Creatinine has increased at 8.7 from 8.1 today, urinary output adequate. Continue lasix BID. Fluid and electrolytes remain stable however creatinine continues to worsen Potassium level at 3.1, k bath will be adjusted with dialysis. Will place vas cath and proceed with hemodialysis today. Orders placed. (2) Hypertension Code(s): I10 - Essential (primary) hypertension Status: Acute Plan: On hydralazine and metoprolol. Will monitor. (3) Sepsis Code(s): A41.9 - Sepsis, unspecified organism Status: Acute Plan: On antibiotics, renal dose as indicated. (4) Hydronephrosis of left kidney Code(s): N13.30 - Unspecified hydronephrosis Status: Chronic Onset Date: Unknown Plan: S/p nephrostomy tube Urology managing. (5) Anemia Code(s): D64.9 - Anemia, unspecified Status: Acute Plan: HGB at 9.6 Transfuse for HGB less than 7.0 Epogen with dialysis <Wandy Pathak - Last Filed: 03/17/18 11:29> - Assessment (1) Acute kidney injury Code(s): N17.9 - Acute kidney failure, unspecified Status: Acute Plan: Patient seen and examined, agree with above. Creatinine continue to increase. Has been non oliguric. Will start HD, explained to the patient and the mother. Watch for renal recovery. (2) Hypertension Code(s): I10 - Essential (primary) hypertension Status: Acute (3) Sepsis Code(s): A41.9 - Sepsis, unspecified organism Status: Acute (4) Hydronephrosis of left kidney Code(s): N13.30 - Unspecified hydronephrosis Status: Chronic Onset Date: Unknown (5) Anemia Code(s): D64.9 - Anemia, unspecified Status: Acute <Jorge Luis Scott - Last Filed: 03/20/18 17:19>
[2018-03-17] MEDS ORDERED: *Heparin 10,000 UNITS/10 ML Vial Periprocedural ONLY ONE (14:00)
--- NOTE | 2018-03-17 14:41 | P.RAD ---
Post Procedure Progress Note - Pre Procedure Diagnosis (1) Sepsis due to urinary tract infection (2) Hydronephrosis of left kidney (3) Acute kidney injury - Post Procedure Diagnosis (1) Sepsis due to urinary tract infection (2) Hydronephrosis of left kidney (3) Acute kidney injury - Procedure Information Supervising Radiologist: Sergey Arciniega MD Estimated blood loss (mL): 2 - Plan of Activity Patient to Unit: Nursing Unit Patient Condition: Fair Additional Comments: Right IJ Vascath placed without difficulty. OK for use. Full report to follow See PACS Report for procedural detail/treatment.
[2018-03-17 14:50] LABS: Hepatitits B Surface Antigen Nonreactive (Nonreactive)
[2018-03-17 15:24] LABS: Hepatitis A IgM Antibody Nonreactive (Nonreactive)
--- NOTE | 2018-03-17 15:41 | IR ---
EXAM DATE: 03/17/2018 3:31 PM EST AGE/SEX: 37 years / Male INDICATIONS: Patient presents with hydronephrosis and acute kidney injury in need of dialysis cathet er placement for hemodialysis. CLINICAL DATA: This is the patient's initial encounter. Patient reports that signs and symptoms have been present for 1 week and indicates a pain score of 0/10. MEDICAL/SURGICAL HISTORY: . Asthma, Seizures. . History of tympanostomy tubes. COMPARISON: No prior exams available for comparison. FLUORO TIME (min): 0.46 IMAGE SERIES: 2 RADIATION DOSE: 2 mGy CAK ACCESS SITE: Right internal jugular vein DEVICE(S): 14 Romanian double lumen 15 cm Schon catheter PROCEDURE : 1. Ultrasound guided venipuncture. 2. Fluoroscopic guidance. 3. Central line placement. The risks, benefits and alternatives to the procedure were explained and verbal and written consent w as obtained. The site was prepped in sterile fashion. Full sterile technique was used, including ca p, mask, sterile gloves and gown and a large sterile sheet. Hand hygiene and 2% chlorhexidine prep w as utilized per protocol for cutaneous antisepsis with appropriate dry time for site. Sterile gel an d sterile probe cover were utilized for ultrasound guidance. The skin and subcutaneous tissues were infiltrated with local anesthetic solution. A suitable site a susi the right internal jugular vein was selected with ultrasound and fluoroscopic guidance. A small incision was made. The vein was accessed under direct ultrasound visualization using the micropunct ure technique. The micropuncture set was exchanged for a 0.035 wire. The tract was dilated. The ca theter was advanced into position under direct fluoroscopic visualization, and was advanced with the tip at the junction of the superior vena cava and right atrium. The catheter was fixed in place with suture and a sterile dressing was applied. The patient tolerated the procedure well and there were no complications. CONCLUSION: 1. Uncomplicated right IJ Vas-Cath placement as above. Electronically signed by: Sergey Arciniega MD Board Certified Radiologist 03/17/2018 3:40 PM EST
--- NOTE | 2018-03-17 15:44 | P.CONID ---
History of Present Illness Service: Infectious disease Consult date: 03/17/18 Requesting Physician: Salbador Haney Reason for Consult: Evaluate patient for infection Primary Care Provider: Reginald Mays Chief Complaint: Blood in urine History of Present Illness: Patient seen and examined. Records reviewed. Patient is a 37-year-old male, initially presented at [facility] for evaluation of abdominal pain on the left side. He also had some nausea, as well as some hematuria. Evaluation revealed hydronephrosis on the left side. Patient was transferred to [facility] for further management. Patient had an elevated WBC and creatinine. 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 Patient underwent placement of a nephrostomy tube on the left side. Patient has had problem with significant hematuria, and has required PRBC transfusion. He had one low-grade temperature since admission. He was put on antibiotics for UTI, and was on Zosyn from March 08 - March 15. Patient's creatinine continued to increase although he has good urine output from the nephrostomy, and lower output in his Caldwell catheter. His creatinine has gone up to 8. Vas-Cath was placed today and hemodialysis is planned. Patient currently is complaining of pain in the right neck where he has the Vas-Cath. He has mild pain over the left nephrostomy. He continues to have significant hematuria. He has been afebrile. He has had a few loose stools today. His last urinalysis was from March 13 with some mild pyuria and the culture is negative. Patient has been off antibiotics since March 15. Infectious disease consultation has been requested to evaluate the patient for possible persistent infection. Review of Systems Constitutional: Denies chills, Denies fever(s) Eyes: Denies discharge, Denies dry eyes Ears, Nose, Mouth, and Throat: Denies difficulty swallowing, Denies ear pain, Denies nasal congestion, Denies nasal discharge, Denies sore throat Cardiovascular: Reports foot swelling, Denies chest pain, Denies shortness of breath Gastrointestinal: Reports abdominal pain, Reports loose stools, Denies nausea, Denies vomiting Genitourinary: Reports blood in urine Musculoskeletal: Denies joint pain Skin/Breast: Denies rash, Denies sores, Denies wounds PMFSH - History History Provided By: Patient - Medical History Medical History: Medical History (Last Reviewed 03/17/18 @ 15:39 by Naomie Rucker MD) Asthma Seizures - Surgical History Surgical History: Surgical History (Last Reviewed 03/17/18 @ 15:39 by Naomie Rucker MD) Hx of tympanostomy tubes Pneumothorax - Family History Family History: Family History (Last Reviewed 03/17/18 @ 15:39 by Naomie Rucker MD) Other Family history non-contributory - Tobacco History Second Hand Smoke Exposure: No Tobacco Use In Past 30 Days: No Smoking Status: Former smoker Tobacco Type: Cigarettes - Alcohol History How Often Do You Have a Drink Containing Alcohol: Never - Substance Use History Substance History: No History of Abuse - Travel History Recent Travel in the [place] Within the Last 8 Weeks: No Recent Travel Out of the Country Within the Last 8 Weeks: No - Immunization History Tetanus Immunization: Unsure Hx Influenza Vaccine This Season: No Medications and Allergies Active Medications: Active Medications Acetaminophen (Tylenol) 650 mg PO Q4H PRN PRN Reason: Temp > 100.4 Last Admin: 03/11/18 12:26 Dose: 650 mg Acetaminophen (Tylenol) 650 mg PO UNSCH PRN PRN Reason: SEE LABEL COMMENTS Belladonna Alkaloids/Opium (B & O Supp) 60 mg RECTAL Q6HR PRN PRN Reason: BLADDER SPASM Clonidine HCl (Catapres) 0.1 mg PO UNSCH PRN PRN Reason: SEE LABEL COMMENTS Diphenhydramine HCl (Benadryl) 25 mg PO UNSCH PRN PRN Reason: SEE LABEL COMMENTS Epoetin Brandt (Epogen Inj) 6,000 unit IV.PUSH UNSCH PRN PRN Reason: SEE LABEL COMMENTS Furosemide (Lasix Inj) 40 mg IV.PUSH BID@0900,1800 CHLOE Last Admin: 03/17/18 09:50 Dose: 40 mg Gelatin (Gelfoam 12 Mm/7 Mm Topical) 1 foam TOPICAL PRN PRN PRN Reason: help stop bleeding from site Gentamicin Sulfate (Gentamicin Inj) 20 mg OTHER WITH DIALYSIS PRN PRN Reason: Dwell Gentamycin Lock Heparin Sodium (Porcine) (Heparin Inj) 8,000 units OTHER WITH DIALYSIS PRN PRN Reason: for machine prime Heparin Sodium (Porcine) (Heparin Inj) 1,000 units OTHER WITH DIALYSIS PRN PRN Reason: Dwell Heparin to Fill Catheter Hydralazine HCl (Apresoline) 25 mg PO TID [facility] Dextrose/Sodium Chloride (D5w/1/2 Ns Inj) 1,000 mls @ 50 mls/hr IV.CONT .Q20H [facility] Last Admin: 03/17/18 09:53 Dose: 50 mls/hr Albumin Human (Flexbumin 25% Inj) 100 mls @ 60 mls/hr IV.SIG WITH DIALYSIS PRN PRN Reason: hypotension / volume replace Sodium Chloride (Ns Inj) 1,000 mls @ 0 mls/hr OTHER .Q0M PRN PRN Reason: for prime and rinse back Sodium Chloride (Ns Inj) 1,000 mls @ 200 mls/hr OTHER .Q5H PRN PRN Reason: for dialyzer flush PRN Sodium Chloride (Ns Inj) 1,000 mls @ 0 mls/hr IV.CONT .Q0M PRN PRN Reason: hypotension / volume replace Mannitol (Mannitol Inj) 12.5 gm IV.PUSH UNSCH PRN PRN Reason: hypotension / volume replace Metoprolol Tartrate (Lopressor) 12.5 mg PO BID [facility] Last Admin: 03/17/18 09:52 Dose: 12.5 mg Miscellaneous (Pill Splitter) 1 each OTHER UNSCH [facility] Last Admin: 03/15/18 08:51 Dose: 1 each Morphine Sulfate (Morphine Inj) 1 mg IV.PUSH Q4H PRN PRN Reason: pain 1 to 10 Last Admin: 03/17/18 06:19 Dose: 1 mg Nitroglycerin (Nitrostat Sl) 0.4 mg SL Q5M PRN PRN Reason: CHEST PAIN Ondansetron HCl (Zofran Inj) 4 mg IV.PUSH Q6H PRN PRN Reason: NAUSEA OR VOMITING Last Admin: 03/16/18 13:38 Dose: 4 mg Ondansetron HCl (Zofran Inj) 4 mg IV.PUSH UNSCH PRN PRN Reason: NAUSEA OR VOMITING Pantoprazole Sodium (Protonix) 40 mg PO DAILY [facility] Last Admin: 03/17/18 09:52 Dose: 40 mg Polyethylene Glycol (Miralax) 17 gm PO DAILY PRN PRN Reason: Moderate-severe constipation Last Admin: 03/09/18 21:14 Dose: 17 gm Senna/Docusate Sodium (Allyssa-Colace) 1 tab PO BID [facility] Last Admin: 03/17/18 09:53 Dose: Not Given Sodium Chloride (Ns Flush) 2 ml IV.FLUSH BID [facility] Last Admin: 03/17/18 09:52 Dose: 2 ml Sodium Chloride (Ns Flush) 2 ml IV.FLUSH PRN PRN PRN Reason: FLUSH AFTER USING IV ACCESS Sodium Chloride (Ns Flush) 5 ml IV.FLUSH PRN PRN PRN Reason: flush each lumen during HD Allergies Allergy/AdvReac Type Severity Reaction Status Date / Time meperidine [From Demerol] Allergy Hives Verified 03/09/18 04:22 Home Medications Medication Instructions Recorded Confirmed Type No Known Home Medications 03/15/18 03/15/18 History Exam Vital signs: Vital Signs 03/16/18 15:44 03/16/18 16:00 03/16/18 16:14 Temperature 99.8 F H Pulse Rate 87 87 90 Respiratory Rate 19 22 22 Blood Pressure 154/102 H 155/101 H Pulse Oximetry 97 97 97 03/16/18 16:44 03/16/18 17:00 03/16/18 17:14 Temperature Pulse Rate 91 H 88 89 Respiratory Rate 21 20 23 Blood Pressure 162/99 H 154/101 H Pulse Oximetry 98 98 98 03/16/18 17:44 03/16/18 18:00 03/16/18 18:14 Temperature Pulse Rate 95 H 90 99 H Respiratory Rate 23 24 21 Blood Pressure 171/102 H 163/99 H Pulse Oximetry 98 97 98 03/16/18 19:00 03/16/18 19:14 03/16/18 20:00 Temperature 99.4 F Pulse Rate 105 H 98 H 94 H Respiratory Rate 21 25 H 20 Blood Pressure 170/96 H 170/96 H Pulse Oximetry 98 98 98 03/16/18 20:45 03/16/18 21:00 03/16/18 22:00 Temperature Pulse Rate 92 H 87 Respiratory Rate 20 20 20 Blood Pressure 158/99 H 157/92 H Pulse Oximetry 97 97 03/16/18 23:00 03/17/18 00:00 03/17/18 01:00 Temperature 99.2 F Pulse Rate 85 83 78 Respiratory Rate 20 18 18 Blood Pressure 149/94 H 149/89 H 150/86 H Pulse Oximetry 98 98 98 03/17/18 02:00 03/17/18 03:00 03/17/18 04:00 Temperature 99.5 F Pulse Rate 84 85 83 Respiratory Rate 18 20 18 Blood Pressure 141/83 H 157/88 H 139/86 Pulse Oximetry 97 97 97 03/17/18 05:00 03/17/18 06:00 03/17/18 06:20 Temperature Pulse Rate 82 96 H Respiratory Rate 18 18 20 Blood Pressure 148/86 H 150/89 H Pulse Oximetry 97 98 03/17/18 06:52 03/17/18 06:53 03/17/18 07:00 Temperature Pulse Rate 85 85 86 Respiratory Rate 18 16 Blood Pressure 149/88 H Pulse Oximetry 97 97 03/17/18 07:14 03/17/18 07:44 03/17/18 08:00 Temperature 99.5 F Pulse Rate 87 90 86 Respiratory Rate 16 18 15 Blood Pressure 149/86 H 145/99 H Pulse Oximetry 98 97 97 03/17/18 08:14 03/17/18 08:44 03/17/18 09:00 Temperature Pulse Rate 89 89 90 Respiratory Rate 15 16 15 Blood Pressure 164/93 H 142/91 H Pulse Oximetry 96 98 97 03/17/18 09:14 03/17/18 09:44 03/17/18 10:00 Temperature Pulse Rate 90 108 H 84 Respiratory Rate 19 31 H 23 Blood Pressure 149/95 H 164/103 H Pulse Oximetry 98 98 Intake & Output 03/16/18 03/17/18 03/17/18 18:59 06:59 18:59 Intake Total 1940 / 1940 650 / 650 1000 / 1000 Output Total 1100 / 1100 900 / 900 475 / 475 Balance 840 / 840 -250 / -250 525 / 525 Weight 66.8 kg Intake: IV 1000 / 1000 1000 / 1000 D5W/1/2 NS Inj 1,000 ML @ 50 1000 / 1000 1000 / 1000 mls/hr IV.CONT .Q20H [facility] Rx#: [id number] Oral 240 / 240 50 / 50 Anesthesia Amount 700 / 700 Other 600 / 600 Output: Urine Amount (Catheter) 325 / 325 250 / 250 Indwelling Urethral Catheter 325 / 325 250 / 250 Urine Amount (Stoma) 775 / 775 650 / 650 475 / 475 Nephrostomy Tube Left 775 / 775 650 / 650 475 / 475 Other: Date of Last Bowel Movement 03/16/18 03/17/18 # Bowel Movements 2 1 Narrative: Physical examination GENERAL: Patient is a well-nourished, well-developed male, awake and alert, not in respiratory distress. SKIN: Cool and dry. No generalized rash, no ecchymoses and no evidence of embolic lesions. HEAD: Atraumatic. Normocephalic. No temporal wasting, or tenderness. EYES: [place] conjunctiva. No petechia or hemorrhage. Pupils equal, round and reactive to light. Extraocular movements full and intact. No scleral icterus. No injection or drainage. EARS, NOSE AND THROAT: Nose without bleeding or purulent nasal discharge. No sinus tenderness. Mucous membranes pink and moist. No oral lesions noted. No exudate. No oral thrush. NECK: Trachea midline. Supple and not tender, no meningeal signs CARDIOVASCULAR: Regular rate and rhythm. No murmurs, rubs or gallops heard RESPIRATORY: Clear to auscultation. Breath sounds equal bilaterally. No rales , wheezing or rhonchi ABDOMEN: Soft, non-tender, nondistended. Bowel sounds present and normoactive. No guarding. No rebound. No organomegaly. L nephrostomy tube with bloody urine : Caldwell with bloody urine EXTREMITIES: No clubbing, cyanosis. has bilateral pedal edema. No calf tenderness. NEUROLOGICAL: Awake and alert. Cranial nerves grossly intact. Motor grossly within normal limits. PSYCHIATRIC: Normal affect, calm and cooperative. LINE: No evidence of infection Results - Labs CBC & Chem 7: 03/17/18 04:49 03/17/18 04:49 Labs: Laboratory Results - last 24 hr 03/14/18 03/17/18 03/17/18 05:57 04:49 04:49 WBC 12.9 H RBC 3.30 L Hgb 9.6 L Hct 28.3 L MCV 85.7 MCH 29.2 MCHC 34.1 RDW 15.3 Plt Count 443 MPV 8.1 Neut % (Auto) 74.8 H Lymph % (Auto) 10.3 [place] % (Auto) 11.7 H Eos % (Auto) 2.5 Baso % (Auto) 0.7 Neut # (Auto) 9.6 H Lymph # (Auto) 1.3 [place] # (Auto) 1.5 H Eos # (Auto) 0.3 Baso # (Auto) 0.1 WBC Differential . Differential Comment Auto diff final Sodium 139 Potassium 3.1 L Chloride 107 Carbon Dioxide 21.8 Anion Gap 10 BUN 44 H Creatinine 8.76 H Estimated GFR 7 L Random Glucose 87 Calcium 8.0 L Stl C.difficile DNA Amp St C. diff Tox Epid 027 Anti-Proteinase 3 Less than 1.0 Anti-Myeloperoxidase Less than 1.0 Hepatitis A IgM Ab Hep Bs Antigen Hep B Core IgM Ab Hep C IgG Ab 03/17/18 03/17/18 11:13 13:35 WBC RBC Hgb Hct MCV MCH MCHC RDW Plt Count MPV Neut % (Auto) Lymph % (Auto) [place] % (Auto) Eos % (Auto) Baso % (Auto) Neut # (Auto) Lymph # (Auto) [place] # (Auto) Eos # (Auto) Baso # (Auto) WBC Differential Differential Comment Sodium Potassium Chloride Carbon Dioxide Anion Gap BUN Creatinine Estimated GFR Random Glucose Calcium Stl C.difficile DNA Amp Negative St C. diff Tox Epid 027 Negative Anti-Proteinase 3 Anti-Myeloperoxidase Hepatitis A IgM Ab Nonreactive Hep Bs Antigen Nonreactive Hep B Core IgM Ab Nonreactive Hep C IgG Ab Nonreactive - Imaging Nephrostomy 03/08/18 00:00 CONCLUSION: 1. Uncomplicated nephrostomy tube placement as above. CT scan will be repeated to evaluate the kidney following percutaneous drainage Abdomen/Bladder Ultrasound 03/13/18 00:00 CONCLUSION: 1. Markedly abnormal left kidney with nephrostomy tube in place. 2. Repeat noncontrast CT scan may be of benefit. Abdomen/Pelvis CT 03/13/18 00:00 CONCLUSION: 1. The examination demonstrates a horseshoe kidney. There is a nephrostomy tube in place on the left moiety. There is high density material filling a significantly dilated collecting system probably representing hemorrhage within the collecting system. The overall size of the kidney and size of the collecting system is similar to a previous of 03/09/2018. There are inflammatory- appearing changes and free fluid in the peritoneal cavity. This appears similar to the patient's previous examination as well. Videofluoroscopic Swallow 03/14/18 15:40 CONCLUSION: Unremarkable modified swallow. See speech pathology report. Barium Swallow X-Ray 03/15/18 00:00 CONCLUSION: 1. Limited examination with no stricture or ulceration. 2. Small reducible hiatal hernia. Assessment and Plan - Plan Impression Hematuria - has obstruction L kidney, with horse shoe kidnea - has nephrostomy on the left side Progressive renal failure, still nonoliguric Status post treatment for UTI Recommendation Will observe for any new evidence of infection, new S./Sxs of infection He has received about 8 days of Abx for presumed UTI when he was admitted Will not start any new Abx at this time He will be started on HD today Thank you for this consultation I will be available prn Pls call if with any new ID issue or question
[2018-03-17] MEDS: Belladonna Alkaloid/Opium 60 MG Supp RECTAL PRN (16:38)
[2018-03-17] MEDS ORDERED: Naloxone Inj 0.4 MG/ML Vial IV.PUSH PRN (16:50)
--- NOTE | 2018-03-17 17:08 | P.PNIM ---
Subjective Interval history: Patient says he is feeling all right, with the exception of left flank pain. Would like pain medication increased. He denies any shortness of breath or chest pain. Physical Exam Vital signs: Vital Signs 03/16/18 17:00 03/16/18 17:14 03/16/18 17:44 Temperature Pulse Rate 88 89 95 H Respiratory Rate 20 23 23 Blood Pressure 154/101 H 171/102 H Pulse Oximetry 98 98 98 03/16/18 18:00 03/16/18 18:14 03/16/18 19:00 Temperature Pulse Rate 90 99 H 105 H Respiratory Rate 24 21 21 Blood Pressure 163/99 H Pulse Oximetry 97 98 98 03/16/18 19:14 03/16/18 20:00 03/16/18 20:45 Temperature 99.4 F Pulse Rate 98 H 94 H Respiratory Rate 25 H 20 20 Blood Pressure 170/96 H 170/96 H Pulse Oximetry 98 98 03/16/18 21:00 03/16/18 22:00 03/16/18 23:00 Temperature 99.2 F Pulse Rate 92 H 87 85 Respiratory Rate 20 20 20 Blood Pressure 158/99 H 157/92 H 149/94 H Pulse Oximetry 97 97 98 03/17/18 00:00 03/17/18 01:00 03/17/18 02:00 Temperature Pulse Rate 83 78 84 Respiratory Rate 18 18 18 Blood Pressure 149/89 H 150/86 H 141/83 H Pulse Oximetry 98 98 97 03/17/18 03:00 03/17/18 04:00 03/17/18 05:00 Temperature 99.5 F Pulse Rate 85 83 82 Respiratory Rate 20 18 18 Blood Pressure 157/88 H 139/86 148/86 H Pulse Oximetry 97 97 97 03/17/18 06:00 03/17/18 06:20 03/17/18 06:52 Temperature Pulse Rate 96 H 85 Respiratory Rate 18 20 18 Blood Pressure 150/89 H 149/88 H Pulse Oximetry 98 97 03/17/18 06:53 03/17/18 07:00 03/17/18 07:14 Temperature Pulse Rate 85 86 87 Respiratory Rate 16 16 Blood Pressure 149/86 H Pulse Oximetry 97 98 03/17/18 07:44 03/17/18 08:00 03/17/18 08:14 Temperature 99.5 F Pulse Rate 90 86 89 Respiratory Rate 18 15 15 Blood Pressure 145/99 H 164/93 H Pulse Oximetry 97 97 96 03/17/18 08:44 03/17/18 09:00 03/17/18 09:14 Temperature Pulse Rate 89 90 90 Respiratory Rate 16 15 19 Blood Pressure 142/91 H 149/95 H Pulse Oximetry 98 97 98 03/17/18 09:44 03/17/18 10:00 Temperature Pulse Rate 108 H 84 Respiratory Rate 31 H 23 Blood Pressure 164/103 H Pulse Oximetry 98 Intake & Output 03/16/18 03/17/18 03/17/18 18:59 06:59 18:59 Intake Total 1940 / 1940 650 / 650 1000 / 1000 Output Total 1100 / 1100 900 / 900 475 / 475 Balance 840 / 840 -250 / -250 525 / 525 Weight 66.8 kg Intake: IV 1000 / 1000 1000 / 1000 D5W/1/2 NS Inj 1,000 ML @ 50 1000 / 1000 1000 / 1000 mls/hr IV.CONT .Q20H [facility] Rx#: [id number] Oral 240 / 240 50 / 50 Anesthesia Amount 700 / 700 Other 600 / 600 Output: Urine Amount (Catheter) 325 / 325 250 / 250 Indwelling Urethral Catheter 325 / 325 250 / 250 Urine Amount (Stoma) 775 / 775 650 / 650 475 / 475 Nephrostomy Tube Left 775 / 775 650 / 650 475 / 475 Other: Date of Last Bowel Movement 03/16/18 03/17/18 # Bowel Movements 2 1 Narrative: GENERAL: Patient sitting up in bed. Appears uncomfortable. SKIN: Warm and dry. HEAD: Normocephalic. EYES: No scleral icterus. No injection or drainage. NECK: Supple, trachea midline. No JVD.. CARDIOVASCULAR: Regular rate and rhythm without murmurs, gallops, or rubs. RESPIRATORY: Breath sounds equal bilaterally. No accessory muscle use. GASTROINTESTINAL: Abdomen soft, non-tender, nondistended. Left flank with percutaneous nephrostomy tube in place. Slight surrounding ecchymosis nontender. Urine with hematuria, no clots. MUSCULOSKELETAL: No cyanosis, or edema. BACK: Nontender without obvious deformity. No CVA tenderness. - Urinary Catheter Management Indwelling Urethral Catheter Cath placed during this visit: yes Reason for continuing: Gross Hematuria Insertion date: 03/09/18 Results - Labs CBC & Chem 7: 03/17/18 04:49 03/17/18 04:49 Laboratory Results - last 24 hr 03/14/18 03/17/18 03/17/18 05:57 04:49 04:49 WBC 12.9 H RBC 3.30 L Hgb 9.6 L Hct 28.3 L MCV 85.7 MCH 29.2 MCHC 34.1 RDW 15.3 Plt Count 443 MPV 8.1 Neut % (Auto) 74.8 H Lymph % (Auto) 10.3 [place] % (Auto) 11.7 H Eos % (Auto) 2.5 Baso % (Auto) 0.7 Neut # (Auto) 9.6 H Lymph # (Auto) 1.3 [place] # (Auto) 1.5 H Eos # (Auto) 0.3 Baso # (Auto) 0.1 WBC Differential . Differential Comment Auto diff final Sodium 139 Potassium 3.1 L Chloride 107 Carbon Dioxide 21.8 Anion Gap 10 BUN 44 H Creatinine 8.76 H Estimated GFR 7 L Random Glucose 87 Calcium 8.0 L Stl C.difficile DNA Amp St C. diff Tox Epid 027 Anti-Proteinase 3 Less than 1.0 Anti-Myeloperoxidase Less than 1.0 Hepatitis A IgM Ab Hep Bs Antigen Hep B Core IgM Ab Hep C IgG Ab 03/17/18 03/17/18 11:13 13:35 WBC RBC Hgb Hct MCV MCH MCHC RDW Plt Count MPV Neut % (Auto) Lymph % (Auto) [place] % (Auto) Eos % (Auto) Baso % (Auto) Neut # (Auto) Lymph # (Auto) [place] # (Auto) Eos # (Auto) Baso # (Auto) WBC Differential Differential Comment Sodium Potassium Chloride Carbon Dioxide Anion Gap BUN Creatinine Estimated GFR Random Glucose Calcium Stl C.difficile DNA Amp Negative St C. diff Tox Epid 027 Negative Anti-Proteinase 3 Anti-Myeloperoxidase Hepatitis A IgM Ab Nonreactive Hep Bs Antigen Nonreactive Hep B Core IgM Ab Nonreactive Hep C IgG Ab Nonreactive - Imaging Impressions Catheter Placement 03/17/18 00:00 CONCLUSION: 1. Uncomplicated right IJ Vas-Cath placement as above. Assessment and Plan - Assessment (1) Dysphagia Code(s): R13.10 - Dysphagia, unspecified Status: Acute - Plan 37-year-old male presents with complaint of abdominal pain hematuria found to be septic due to pyelonephritis with 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 He was admitted and seen by urology who arranged for percutaneous nephrostomy tube by IR on 03/08. Subsequently, patient continued to have gross hematuria require transfusion 2 units on 03/08 first and then again 2 units on March 11. Patient also developed acute renal failure and symptoms of dysphagia //Septic shock due to pyelonephritisstatus post 8 days of Zosyn, last vancomycin dose was 2/2 and stopped due to acute renal failure, blood cultures negative, urine culture negative; discontinue Zosyn and monitor patient clinically off antibiotics. Afebrile, check CBC tomorrow. = Appreciate infectious disease consultation. No signs of infection currently. Continue to monitor. //Severe hydronephrosis with UPJ obstruction with left horseshoe kidney- status post percutaneous nephrostomy tube placement by IR on 03/08. Continue management per urology. = Patient reporting pain at the left nephrostomy tube. No signs of infection. Will adjust pain regimen to be by mouth. Careful with pain meds due to renal failure. //Acute renal failure likely due to acute tubular necrosis vancomycin and sepsis and previous obstruction with worsening creatinine with history of normal creatinine/kidney function.patient continues to have urine output. Nephrology monitoring, may need hemodialysis if creatinine worsens. Repeat renal ultrasound did not show any hydronephrosis on the right. Avoid NSAIDs, avoid contrast. Continue Lasix, recheck BMP tomorrow. IVF per nephrology. = Vas-Cath placed, and patient starting on transitional dialysis. //Anemia due to acute blood loss for mandatory is status post 4 units of total transfusioncontinue to monitor CBC and transfuse as needed. = Hemoglobin stable at 9.6 from 9.3 yesterday. Continue to monitor //Severe protein calorie malnutrition with albumin 2.0, generalized weakness continue mighty shakes supplements, dietitian consultation = Have advance diet. Will add Nepro. //Dysphagianormals barium swallow, status post EGD, gastroenterology on board, showed esophageal stricture status post dilation, follow-up biopsy, probably with chronic gastritis, continue Protonix. = GI has signed off. Switch diet to soft renal today. Will need to follow with GI as outpatient //Hypertension-controlled, continue hydralazine, metoprolol //Bilateral pleural effusion with bibasilar atelectasisencourage incentive spirometry usecurrently on Lasix //Asthma history no acute exacerbation nebs as needed //DVT prophylaxisno anticoagulation due to hematuria, SCD Discussed Condition With: Patient, nurse Discharge Planning: PT recommends rehab. Transfer to floor
[2018-03-17] MEDS ORDERED: HYDROmorphone PF Inj 1 MG/ML Ampul IV.PUSH ONE ×3 (18:15→19:30)
[2018-03-17] MEDS ORDERED: hydrALAZINE HCl Inj 20 MG/ML Vial IV.PUSH PRN (18:44)
[2018-03-17] MEDS ORDERED: Diatrizoate Meglum/Diatrizoate Sod Liq 9 ML UDC PO ONE (20:30)
[2018-03-17] MEDS: Piperacil/Tazo 3.375 GM Premix 3.375 GM/50 ML PIGGYBACK IV.SIG SCH (20:36)
--- NOTE | 2018-03-17 23:35 | CT ---
EXAM DATE: 03/17/2018 11:22 PM EST AGE/SEX: 37 years / Male INDICATIONS: Abdominal pain and hematuria. CLINICAL DATA: This is the patient's subsequent encounter. Patient reports that signs and symptoms h ave been present for 4 - 6 days and indicates a pain score of 6/10. MEDICAL/SURGICAL HISTORY: Asthma. Seizures. . Nephrostomy tube RADIATION DOSE: 6.64 CTDI (mGy) COMPARISON: [facility] [place] & [place]ELVIS W/O CONTRAST, 03/13/2018. . TECHNIQUE: Multiple contiguous axial images were obtained through the abdomen. Images were obtained using multiple row detector helical technique. Using automated exposure control and adjustment of the mA and/or kV according to patient size, radiation dose was kept as low as reasonably achievable to o btain optimal diagnostic quality images. DICOM format image data is available electronically for rev iew and comparison. FINDINGS: LOWER LUNGS: Small bilateral pleural effusions with associated airspace consolidation at the lung ba ses. LIVER: Stable 1.6 cm cyst in segment 4 of the liver. Liver otherwise appears unremarkable. SPLEEN: Homogeneous density without enlargement. PANCREAS: Grossly unremarkable. KIDNEYS: Horseshoe kidney is again noted. There is a left-sided percutaneous nephrostomy catheter in the left moiety. Redemonstration of large prominent high density material in the collecting system o bscuring the left moiety consistent with a large hematoma. There has been interval reduction in overa ll density of this collection consistent with evolving blood products. Overall size of the hematoma a ppears stable in comparison to previous exam. ADRENAL GLANDS: Unremarkable. AORTA: Janey-aneurysmal. BOWEL/MESENTERY: Contrast is noted throughout the colon. There are no dilated loops of bowel. No pne umatosis or free air. Slightly increased trace amount of ascites. ABDOMINAL WALL: Intact. BLADDER: There is a Caldwell catheter in the bladder. Bladder is mildly distended despite the Caldwell cat heter. Dense material surrounds the Caldwell balloon consistent with blood products. REPRODUCTIVE: Grossly unremarkable. BONY STRUCTURES: Osseous structures are stable in comparison to prior CT exams. CONCLUSION: 1. Horseshoe kidney with stable percutaneous nephrostomy catheter in the left moiety. Stable large a mount of evolving hemorrhage involving the left moiety which obscures the renal anatomy. 2. Subtle increased trace ascites and reactive inflammatory change. 3. Caldwell catheter in the bladder with mild distention of the bladder despite Caldwell presence. Small a mount of blood products noted in the bladder. 4. Small bilateral pleural effusions with associated bibasilar airspace consolidation. 5. Additional stable ancillary findings, as above. Electronically signed by: Mac Uribe MD Board Certified Radiologist 03/17/2018 11:34 PM EST
[2018-03-18] MEDS: Piperacil/Tazo 3.375 GM Premix 3.375 GM/50 ML PIGGYBACK IV.SIG SCH ×3 (02:56→14:43)
[2018-03-18] MEDS: Acetaminophen 325 MG Tablet PO PRN ×3 (03:09→20:28)
[2018-03-18] MEDS: Dextrose 5%/NaCl 0.45% Inj 1,000 ML IV.CONT SCH ×2 (08:13→14:44)
[2018-03-18] MEDS: Metoprolol Tartrate 25 MG Tablet PO SCH ×2 (09:52→20:29)
[2018-03-18] MEDS: Senna/Docusate Sodium 8.6/50 MG Tablet PO SCH ×2 (09:52→20:29)
--- NOTE | 2018-03-18 12:07 | P.PNIM ---
Subjective Interval history: Shunt was advanced to solid foods and is tolerating his food so far. He still complains of episodic pain without full relief from morphine. His pain is from a hemorrhage causing localized inflammation in his left ureter. He has ongoing dialysis due to renal impairment. Physical Exam Vital signs: Vital Signs 03/17/18 12:22 03/17/18 13:00 03/17/18 13:22 Temperature Pulse Rate 83 83 80 Respiratory Rate 15 19 24 Blood Pressure 136/91 H Pulse Oximetry 97 98 98 03/17/18 14:00 03/17/18 14:22 03/17/18 15:00 Temperature Pulse Rate 78 84 80 Respiratory Rate 14 20 21 Blood Pressure 164/100 H 162/101 H Pulse Oximetry 98 99 98 03/17/18 15:22 03/17/18 16:00 03/17/18 16:22 Temperature Pulse Rate 81 79 85 Respiratory Rate 22 25 H 18 Blood Pressure 186/100 H Pulse Oximetry 99 99 99 03/17/18 16:23 03/17/18 16:45 03/17/18 17:00 Temperature Pulse Rate 86 69 65 Respiratory Rate 20 29 H 24 Blood Pressure 171/95 H Pulse Oximetry 98 99 99 03/17/18 17:30 03/17/18 17:45 03/17/18 18:00 Temperature 98.8 F Pulse Rate 72 71 117 H Respiratory Rate 31 H 36 H 47 H Blood Pressure 183/98 H 174/96 H 162/86 H Pulse Oximetry 98 99 97 03/17/18 18:15 03/17/18 18:30 03/17/18 18:36 Temperature Pulse Rate 75 71 73 Respiratory Rate 29 H 25 H 27 H Blood Pressure 178/104 H 213/115 H 199/105 H Pulse Oximetry 100 99 99 03/17/18 18:39 03/17/18 19:00 03/17/18 19:33 Temperature 98.1 F Pulse Rate 70 67 64 Respiratory Rate 25 H 23 18 Blood Pressure 184/89 H 219/100 H Pulse Oximetry 98 100 100 03/17/18 19:34 03/17/18 19:36 03/17/18 19:46 Temperature Pulse Rate 60 69 69 Respiratory Rate 19 17 21 Blood Pressure 214/101 H 198/99 H 202/100 H Pulse Oximetry 100 98 100 03/17/18 20:00 03/17/18 20:01 03/17/18 20:16 Temperature Pulse Rate 60 64 75 Respiratory Rate 19 20 17 Blood Pressure 194/110 H 187/91 H Pulse Oximetry 99 100 99 03/17/18 20:31 03/17/18 20:46 03/17/18 21:00 Temperature Pulse Rate 73 89 96 H Respiratory Rate 16 25 H 15 Blood Pressure 178/88 H 172/89 H Pulse Oximetry 98 100 98 03/17/18 21:01 03/17/18 21:16 03/17/18 21:31 Temperature Pulse Rate 98 H 92 H 106 H Respiratory Rate 17 18 17 Blood Pressure 173/92 H 170/96 H 156/87 H Pulse Oximetry 98 99 98 03/17/18 21:46 03/17/18 22:00 03/17/18 22:01 Temperature Pulse Rate 106 H 108 H 111 H Respiratory Rate 16 12 20 Blood Pressure 165/96 H 182/101 H Pulse Oximetry 97 98 98 03/17/18 22:16 03/17/18 22:31 03/17/18 22:46 Temperature Pulse Rate 100 H 111 H 111 H Respiratory Rate 16 16 12 Blood Pressure 171/94 H 153/86 H 154/92 H Pulse Oximetry 98 97 98 03/17/18 23:00 03/17/18 23:01 03/17/18 23:16 Temperature Pulse Rate 116 H 111 H 97 H Respiratory Rate 19 10 L 13 Blood Pressure 159/96 H 160/100 H Pulse Oximetry 98 97 98 03/17/18 23:31 03/17/18 23:46 03/18/18 00:00 Temperature Pulse Rate 95 H 105 H 89 Respiratory Rate 13 15 17 Blood Pressure 159/97 H 162/86 H Pulse Oximetry 97 97 97 03/18/18 00:01 03/18/18 00:16 03/18/18 00:31 Temperature Pulse Rate 90 88 98 H Respiratory Rate 16 14 19 Blood Pressure 165/94 H 152/84 H 148/86 H Pulse Oximetry 97 98 98 03/18/18 01:00 03/18/18 01:08 03/18/18 02:00 Temperature Pulse Rate 111 H 121 H 107 H Respiratory Rate 14 25 H 17 Blood Pressure 135/91 H Pulse Oximetry 97 97 03/18/18 03:00 03/18/18 03:47 03/18/18 04:00 Temperature 98.5 F Pulse Rate 103 H 99 H 99 H Respiratory Rate 19 18 21 Blood Pressure 133/81 121/76 Pulse Oximetry 97 97 97 03/18/18 05:00 03/18/18 06:00 03/18/18 07:00 Temperature Pulse Rate 97 H 95 H 94 H Respiratory Rate 20 19 22 Blood Pressure 119/72 114/72 114/70 Pulse Oximetry 97 98 97 03/18/18 07:38 03/18/18 07:57 03/18/18 08:00 Temperature Pulse Rate 79 90 Respiratory Rate 22 16 Blood Pressure 119/71 126/77 Pulse Oximetry 97 97 97 03/18/18 08:03 03/18/18 08:18 03/18/18 08:33 Temperature 98.8 F Pulse Rate 80 81 80 Respiratory Rate 16 12 17 Blood Pressure 125/75 142/85 H 133/83 Pulse Oximetry 98 99 99 03/18/18 08:48 03/18/18 09:00 03/18/18 09:03 Temperature Pulse Rate 80 116 H 83 Respiratory Rate 17 30 H 24 Blood Pressure 141/86 H 141/89 H Pulse Oximetry 98 99 97 03/18/18 09:18 03/18/18 09:33 03/18/18 09:48 Temperature Pulse Rate 75 81 92 H Respiratory Rate 22 25 H 23 Blood Pressure 132/76 133/75 138/83 Pulse Oximetry 97 97 97 03/18/18 10:00 03/18/18 10:03 03/18/18 10:18 Temperature Pulse Rate 117 H 102 H 104 H Respiratory Rate 36 H 28 H 24 Blood Pressure 141/77 H 133/61 Pulse Oximetry 99 98 98 03/18/18 10:33 Temperature Pulse Rate 97 H Respiratory Rate 26 H Blood Pressure 119/72 Pulse Oximetry 98 Intake & Output 03/17/18 03/18/18 03/18/18 18:59 06:59 18:59 Intake Total 1000 / 1000 340 / 340 Output Total 1275 / 1275 210 / 210 Balance -275 / -275 130 / 130 Weight 66 kg Intake: IV 1000 / 1000 100 / 100 D5W/1/2 NS Inj 1,000 ML @ 50 1000 / 1000 mls/hr IV.CONT .Q20H [facility] Rx#: [id number] Zosyn 3.375 GM Premix 3.375 gm 100 / 100 In 50 ml @ 100 mls/hr IV.SIG Q6H [facility] Rx#:[id number] Oral 240 / 240 Output: Urine Amount (Catheter) 225 / 225 200 / 200 Indwelling Urethral Catheter 225 / 225 200 / 200 Urine Amount (Stoma) 1050 / 1050 Nephrostomy Tube Left 1050 / 1050 Other: Date of Last Bowel Movement 03/17/18 03/18/18 03/18/18 # Bowel Movements 1 Narrative: GENERAL: Patient sitting up in bed. Appears uncomfortable. SKIN: Warm and dry. HEAD: Normocephalic. EYES: No scleral icterus. No injection or drainage. NECK: Supple, trachea midline. No JVD.. CARDIOVASCULAR: Regular rate and rhythm without murmurs, gallops, or rubs. RESPIRATORY: Breath sounds equal bilaterally. No accessory muscle use. GASTROINTESTINAL: Abdomen soft, non-tender, nondistended. Left flank with percutaneous nephrostomy tube in place. Slight surrounding ecchymosis nontender. Urine with hematuria, no clots. MUSCULOSKELETAL: No cyanosis, or edema. BACK: Nontender without obvious deformity. No CVA tenderness. Urinary Catheter Management Indwelling Urethral Catheter: Cath placed during this visit: yes Reason for continuing: Gross Hematuria Insertion date: 03/09/18 Results Labs CBC & Chem 7: 03/17/18 04:49 03/17/18 04:49 Labs: Microbiology 03/17/18 19:31 Blood - Peripheral Aerobic Blood Culture - Preliminary No growth in 1 day 03/17/18 19:31 Blood - Peripheral Anaerobic Blood Culture - Preliminary No growth in 1 day 03/17/18 19:24 Blood - Peripheral Aerobic Blood Culture - Preliminary No growth in 1 day 03/17/18 19:24 Blood - Peripheral Anaerobic Blood Culture - Preliminary No growth in 1 day Imaging Imaging: Impressions Abdomen/Pelvis CT 03/17/18 00:00 CONCLUSION: 1. Horseshoe kidney with stable percutaneous nephrostomy catheter in the left moiety. Stable large amount of evolving hemorrhage involving the left moiety which obscures the renal anatomy. 2. Subtle increased trace ascites and reactive inflammatory change. 3. Caldwell catheter in the bladder with mild distention of the bladder despite Caldwell presence. Small amount of blood products noted in the bladder. 4. Small bilateral pleural effusions with associated bibasilar airspace consolidation. 5. Additional stable ancillary findings, as above. Catheter Placement 03/17/18 00:00 CONCLUSION: 1. Uncomplicated right IJ Vas-Cath placement as above. 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 He was admitted and seen by urology who arranged for percutaneous nephrostomy tube by IR on 03/08. Subsequently, patient continued to have gross hematuria require transfusion 2 units on 03/08 first and then again 2 units on March 11. Patient also developed acute renal failure and symptoms of dysphagia Septic shock due to pyelonephritis status post 8 days of Zosyn, now discontinued last vancomycin dose was 03/11 and stopped due to acute renal failure blood cultures negative urine culture negative, currently off of antibiotics. Remains afebrile. Appreciate infectious disease consult Severe hydronephrosis with UPJ obstruction with left horseshoe kidney status post percutaneous nephrostomy tube placement by IR on 03/08. Subsequent pain in left flank, CT shows localized hemorrhage and inflammation Continue management per urology Acute renal failure likely due to acute tubular necrosis Etiology is possibly due to vancomycin, sepsis and previous obstruction Creatinine worsened following localized hemorrhage, patient placed on dialysis Avoid nephrotoxic agents such as NSAIDs and contrast Patient still has urine output, consider holding Lasix since we have dialysis to remove extra fluid BMP today shows creatinine slightly worse Continue IV fluids as recommended by nephrology Appreciate nephrology consult and management Anemia due to acute blood loss status post 4 units of total transfusion Hemoglobin is stable in the 9.6 range continue to monitor CBC and transfuse as needed. Severe protein calorie malnutrition with albumin 2.0 continue mighty shakes supplements, dietitian consultation Tolerating solid food Dysphagia normals barium swallow EGD showed showed esophageal stricture status post dilation EGD biopsy pending Tolerating solid food Gastroenterology has signed off Hypertension controlled, much of it may be due to pain continue hydralazine, metoprolol Bilateral pleural effusion with bibasilar atelectasis encourage incentive spirometry use Extra fluid removed with dialysis Placing Lasix on hold due to worsening of renal impairment h/o Asthma no acute exacerbation nebs as needed DVT prophylaxis SCDs, chemoprophylaxis contraindicated due to acute hemorrhage Progress Note: Quality VTE Deep Vein Thrombosis/Pulmonary Embolism Present on Admission: No _ (1) Dysphagia Qualifiers: Dysphagia type:
--- NOTE | 2018-03-18 15:15 | P.PNNP ---
Subjective Interval history: Patient is started on dialysis Physical Exam Vital signs: Vital Signs 03/17/18 15:22 03/17/18 16:00 03/17/18 16:22 Temperature Pulse Rate 81 79 85 Respiratory Rate 22 25 H 18 Blood Pressure 186/100 H Pulse Oximetry 99 99 99 03/17/18 16:23 03/17/18 16:45 03/17/18 17:00 Temperature Pulse Rate 86 69 65 Respiratory Rate 20 29 H 24 Blood Pressure 171/95 H Pulse Oximetry 98 99 99 03/17/18 17:30 03/17/18 17:45 03/17/18 18:00 Temperature 98.8 F Pulse Rate 72 71 117 H Respiratory Rate 31 H 36 H 47 H Blood Pressure 183/98 H 174/96 H 162/86 H Pulse Oximetry 98 99 97 03/17/18 18:15 03/17/18 18:30 03/17/18 18:36 Temperature Pulse Rate 75 71 73 Respiratory Rate 29 H 25 H 27 H Blood Pressure 178/104 H 213/115 H 199/105 H Pulse Oximetry 100 99 99 03/17/18 18:39 03/17/18 19:00 03/17/18 19:33 Temperature 98.1 F Pulse Rate 70 67 64 Respiratory Rate 25 H 23 18 Blood Pressure 184/89 H 219/100 H Pulse Oximetry 98 100 100 03/17/18 19:34 03/17/18 19:36 03/17/18 19:46 Temperature Pulse Rate 60 69 69 Respiratory Rate 19 17 21 Blood Pressure 214/101 H 198/99 H 202/100 H Pulse Oximetry 100 98 100 03/17/18 20:00 03/17/18 20:01 03/17/18 20:16 Temperature Pulse Rate 60 64 75 Respiratory Rate 19 20 17 Blood Pressure 194/110 H 187/91 H Pulse Oximetry 99 100 99 03/17/18 20:31 03/17/18 20:46 03/17/18 21:00 Temperature Pulse Rate 73 89 96 H Respiratory Rate 16 25 H 15 Blood Pressure 178/88 H 172/89 H Pulse Oximetry 98 100 98 03/17/18 21:01 03/17/18 21:16 03/17/18 21:31 Temperature Pulse Rate 98 H 92 H 106 H Respiratory Rate 17 18 17 Blood Pressure 173/92 H 170/96 H 156/87 H Pulse Oximetry 98 99 98 03/17/18 21:46 03/17/18 22:00 03/17/18 22:01 Temperature Pulse Rate 106 H 108 H 111 H Respiratory Rate 16 12 20 Blood Pressure 165/96 H 182/101 H Pulse Oximetry 97 98 98 03/17/18 22:16 03/17/18 22:31 03/17/18 22:46 Temperature Pulse Rate 100 H 111 H 111 H Respiratory Rate 16 16 12 Blood Pressure 171/94 H 153/86 H 154/92 H Pulse Oximetry 98 97 98 03/17/18 23:00 03/17/18 23:01 03/17/18 23:16 Temperature Pulse Rate 116 H 111 H 97 H Respiratory Rate 19 10 L 13 Blood Pressure 159/96 H 160/100 H Pulse Oximetry 98 97 98 03/17/18 23:31 03/17/18 23:46 03/18/18 00:00 Temperature Pulse Rate 95 H 105 H 89 Respiratory Rate 13 15 17 Blood Pressure 159/97 H 162/86 H Pulse Oximetry 97 97 97 03/18/18 00:01 03/18/18 00:16 03/18/18 00:31 Temperature Pulse Rate 90 88 98 H Respiratory Rate 16 14 19 Blood Pressure 165/94 H 152/84 H 148/86 H Pulse Oximetry 97 98 98 03/18/18 01:00 03/18/18 01:08 03/18/18 02:00 Temperature Pulse Rate 111 H 121 H 107 H Respiratory Rate 14 25 H 17 Blood Pressure 135/91 H Pulse Oximetry 97 97 03/18/18 03:00 03/18/18 03:47 03/18/18 04:00 Temperature 98.5 F Pulse Rate 103 H 99 H 99 H Respiratory Rate 19 18 21 Blood Pressure 133/81 121/76 Pulse Oximetry 97 97 97 03/18/18 05:00 03/18/18 06:00 03/18/18 07:00 Temperature Pulse Rate 97 H 95 H 94 H Respiratory Rate 20 19 22 Blood Pressure 119/72 114/72 114/70 Pulse Oximetry 97 98 97 03/18/18 07:38 03/18/18 07:57 03/18/18 08:00 Temperature Pulse Rate 79 90 Respiratory Rate 22 16 Blood Pressure 119/71 126/77 Pulse Oximetry 97 97 97 03/18/18 08:03 03/18/18 08:18 03/18/18 08:33 Temperature 98.8 F Pulse Rate 80 81 80 Respiratory Rate 16 12 17 Blood Pressure 125/75 142/85 H 133/83 Pulse Oximetry 98 99 99 03/18/18 08:48 03/18/18 09:00 03/18/18 09:03 Temperature Pulse Rate 80 116 H 83 Respiratory Rate 17 30 H 24 Blood Pressure 141/86 H 141/89 H Pulse Oximetry 98 99 97 03/18/18 09:18 03/18/18 09:33 03/18/18 09:48 Temperature Pulse Rate 75 81 92 H Respiratory Rate 22 25 H 23 Blood Pressure 132/76 133/75 138/83 Pulse Oximetry 97 97 97 03/18/18 10:00 03/18/18 10:03 03/18/18 10:18 Temperature Pulse Rate 117 H 102 H 104 H Respiratory Rate 36 H 28 H 24 Blood Pressure 141/77 H 133/61 Pulse Oximetry 99 98 98 03/18/18 10:33 03/18/18 10:48 03/18/18 11:00 Temperature Pulse Rate 97 H 105 H 114 H Respiratory Rate 26 H 27 H 29 H Blood Pressure 119/72 113/63 Pulse Oximetry 98 97 97 03/18/18 11:03 03/18/18 11:18 03/18/18 11:33 Temperature Pulse Rate 109 H 106 H 114 H Respiratory Rate 23 25 H 28 H Blood Pressure 103/58 L 112/61 112/61 Pulse Oximetry 97 97 98 03/18/18 11:48 03/18/18 12:00 03/18/18 12:03 Temperature 98.1 F Pulse Rate 115 H 112 H 113 H Respiratory Rate 20 21 20 Blood Pressure 106/60 110/60 Pulse Oximetry 97 97 97 03/18/18 12:18 03/18/18 12:33 03/18/18 12:48 Temperature Pulse Rate 109 H 107 H 109 H Respiratory Rate 30 H 27 H 27 H Blood Pressure 104/59 L 111/62 108/61 Pulse Oximetry 97 97 97 03/18/18 13:00 03/18/18 13:03 03/18/18 13:18 Temperature Pulse Rate 110 H 107 H 103 H Respiratory Rate 27 H 28 H 26 H Blood Pressure 109/56 L 117/65 Pulse Oximetry 97 96 96 03/18/18 13:33 03/18/18 13:48 02/09/19 14:00 Temperature Pulse Rate 112 H 108 H 107 H Respiratory Rate 19 21 18 Blood Pressure 116/65 116/69 Pulse Oximetry 96 96 97 03/18/18 14:03 03/18/18 14:18 03/18/18 14:33 Temperature Pulse Rate 113 H 116 H 97 H Respiratory Rate 20 31 H 24 Blood Pressure 122/75 127/60 122/70 Pulse Oximetry 97 97 97 03/18/18 14:48 03/18/18 15:00 03/18/18 15:03 Temperature Pulse Rate 99 H 105 H 103 H Respiratory Rate 23 22 19 Blood Pressure 114/62 127/74 Pulse Oximetry 97 97 97 Intake & Output 03/17/18 03/18/18 03/18/18 18:59 06:59 18:59 Intake Total 1000 / 1000 340 / 340 1000 / 1000 Output Total 1275 / 1275 210 / 210 1000 / 1000 Balance -275 / -275 130 / 130 0 / 0 Weight 66 kg Intake: IV 1000 / 1000 100 / 100 1000 / 1000 D5W/1/2 NS Inj 1,000 ML @ 50 1000 / 1000 1000 / 1000 mls/hr IV.CONT .Q20H [facility] Rx#: [id number] Zosyn 3.375 GM Premix 3.375 gm 100 / 100 In 50 ml @ 100 mls/hr IV.SIG Q6H [facility] Rx#:[id number] Oral 240 / 240 Output: Hemodialysis Amount 1000 / 1000 Urine Amount (Catheter) 225 / 225 200 / 200 Indwelling Urethral Catheter 225 / 225 200 / 200 Urine Amount (Stoma) 1050 / 1050 Nephrostomy Tube Left 1050 / 1050 Other: Date of Last Bowel Movement 03/17/18 03/18/18 03/18/18 # Bowel Movements 1 Narrative: Physical examination GENERAL: Patient is a well-nourished, well-developed male, awake and alert, not in respiratory distress. SKIN: Cool and dry. No generalized rash, no ecchymoses and no evidence of embolic lesions. HEAD: Atraumatic. Normocephalic. No temporal wasting, or tenderness. EYES: [place] conjunctiva. No petechia or hemorrhage. Pupils equal, round and reactive to light. Extraocular movements full and intact. No scleral icterus. No injection or drainage. EARS, NOSE AND THROAT: Nose without bleeding or purulent nasal discharge. No sinus tenderness. Mucous membranes pink and moist. No oral lesions noted. No exudate. No oral thrush. NECK: Trachea midline. Supple and not tender, no meningeal signs CARDIOVASCULAR: Regular rate and rhythm. No murmurs, rubs or gallops heard RESPIRATORY: Clear to auscultation. Breath sounds equal bilaterally. No rales , wheezing or rhonchi ABDOMEN: Soft, non-tender, nondistended. Bowel sounds present and normoactive. No guarding. No rebound. No organomegaly. L nephrostomy tube with bloody urine : Caldwell with bloody urine EXTREMITIES: No clubbing, cyanosis. has bilateral pedal edema. No calf tenderness. NEUROLOGICAL: Awake and alert. Cranial nerves grossly intact. Motor grossly within normal limits. PSYCHIATRIC: Normal affect, calm and cooperative. LINE: No evidence of infection - Urinary Catheter Management Indwelling Urethral Catheter Cath placed during this visit: yes Reason for continuing: Gross Hematuria Insertion date: 03/09/18 Assessment and Plan - Assessment (1) Acute kidney injury Code(s): N17.9 - Acute kidney failure, unspecified Status: Acute Plan: [place] possible ATN Urine EOS negative Repeat Renal ultrasound with known horseshoe kidney. There is no hydronephrosis on the right. There is moderate dilatation of the collecting system on the left with very poor delineation of the renal cortex. There is a 4 cm complex fluid collection around the nephrostomy. There is moderate free fluid present in the pelvis. Patient has been started on dialysis liters 1 L removed Continue to monitor progress follow BMP He has hematuria Follows with Dr. Scott Avoid nephrotoxins including IV contrast and NSAIDS (2) Hypertension Code(s): I10 - Essential (primary) hypertension Status: Acute Plan: On hydralazine and metoprolol. Will monitor. (3) Sepsis Code(s): A41.9 - Sepsis, unspecified organism Status: Acute Plan: On antibiotics, renal dose as indicated. (4) Hydronephrosis of left kidney Code(s): N13.30 - Unspecified hydronephrosis Status: Chronic Onset Date: Unknown Plan: S/p nephrostomy tube Urology managing. (5) Anemia Code(s): D64.9 - Anemia, unspecified Status: Acute Plan: HGB at 9.6 Transfuse for HGB less than 7.0 Epogen with dialysis
[2018-03-19] MEDS: Metoprolol Tartrate 25 MG Tablet PO SCH ×2 (08:19→20:58)
[2018-03-19] MEDS: Senna/Docusate Sodium 8.6/50 MG Tablet PO SCH ×2 (08:20→20:58)
[2018-03-19 09:42] LABS: Hematocrit 21.1 % (39.0-51.0); Hemoglobin 7.2 gm/dL (13.0-17.0); Mean Corpuscular HGB Conc 34.2 % (32.0-36.0); Mean Corpuscular Hemoglobin 29.1 pg (27.0-34.0); Mean Corpuscular Volume 85.3 fL (80.0-100.0); Mean Platelet Volume 8.8 fL (7.0-11.0); Platelet Count 411 th/mm3 (150-450); Red Blood Count 2.47 mil/mm3 (4.50-5.90); Red Cell Distribution Width 16.1 % (11.6-17.2)
[2018-03-19 09:43] LABS: Calcium 7.9 mg/dL (8.5-10.1); Carbon Dioxide 30.7 meq/L (21.0-32.0); Potassium 3.1 meq/L (3.5-5.1)
--- NOTE | 2018-03-19 13:07 | P.PNIM ---
Physical Exam Vital signs: Vital Signs 03/18/18 13:18 03/18/18 13:33 03/18/18 13:48 Temperature Pulse Rate 103 H 112 H 108 H Respiratory Rate 26 H 19 21 Blood Pressure 117/65 116/65 116/69 Pulse Oximetry 96 96 96 03/18/18 14:00 03/18/18 14:03 03/18/18 14:18 Temperature Pulse Rate 107 H 113 H 116 H Respiratory Rate 18 20 31 H Blood Pressure 122/75 127/60 Pulse Oximetry 97 97 97 03/18/18 14:33 03/18/18 14:48 03/18/18 15:00 Temperature Pulse Rate 97 H 99 H 105 H Respiratory Rate 24 23 22 Blood Pressure 122/70 114/62 Pulse Oximetry 97 97 97 03/18/18 15:03 03/18/18 15:18 03/18/18 15:33 Temperature Pulse Rate 103 H 106 H 107 H Respiratory Rate 19 22 18 Blood Pressure 127/74 128/77 127/72 Pulse Oximetry 97 97 97 03/18/18 15:48 03/18/18 16:00 03/18/18 16:03 Temperature 98.5 F Pulse Rate 110 H 101 H 103 H Respiratory Rate 19 26 H 25 H Blood Pressure 126/75 128/75 Pulse Oximetry 96 96 96 03/18/18 16:18 03/18/18 16:33 03/18/18 16:48 Temperature Pulse Rate 122 H 109 H 114 H Respiratory Rate 43 H 23 20 Blood Pressure 134/77 133/78 133/80 Pulse Oximetry 97 96 96 03/18/18 17:00 03/18/18 17:03 03/18/18 17:18 Temperature Pulse Rate 119 H 115 H 115 H Respiratory Rate 20 18 24 Blood Pressure 136/80 137/83 Pulse Oximetry 97 96 96 03/18/18 17:33 03/18/18 17:48 03/18/18 18:00 Temperature Pulse Rate 111 H 105 H 102 H Respiratory Rate 20 27 H 31 H Blood Pressure 136/81 133/82 Pulse Oximetry 96 96 95 03/18/18 18:03 03/18/18 18:18 03/18/18 18:33 Temperature Pulse Rate 104 H 110 H 110 H Respiratory Rate 25 H 23 23 Blood Pressure 136/82 135/79 135/82 Pulse Oximetry 95 96 95 03/18/18 18:48 03/18/18 19:00 03/18/18 19:03 Temperature Pulse Rate 111 H 112 H 111 H Respiratory Rate 23 22 31 H Blood Pressure 131/81 129/80 Pulse Oximetry 95 95 96 03/18/18 19:18 03/18/18 19:33 03/18/18 19:48 Temperature 99.2 F Pulse Rate 118 H 111 H 111 H Respiratory Rate 22 18 15 Blood Pressure 137/85 132/82 133/88 Pulse Oximetry 96 96 96 03/18/18 20:00 03/18/18 20:03 03/18/18 20:18 Temperature Pulse Rate 111 H 112 H 114 H Respiratory Rate 21 18 27 H Blood Pressure 136/85 134/83 Pulse Oximetry 96 96 96 03/18/18 20:33 03/18/18 21:01 03/18/18 21:03 Temperature Pulse Rate 112 H 125 H 118 H Respiratory Rate 38 H 30 H 19 Blood Pressure 153/78 H 123/84 130/86 Pulse Oximetry 97 97 03/18/18 21:18 03/18/18 21:33 03/18/18 21:48 Temperature Pulse Rate 106 H 104 H 102 H Respiratory Rate 19 17 16 Blood Pressure 127/82 127/78 125/82 Pulse Oximetry 95 97 97 03/18/18 22:00 03/18/18 22:03 03/18/18 22:18 Temperature Pulse Rate 102 H 102 H 100 H Respiratory Rate 18 18 16 Blood Pressure 130/79 118/76 Pulse Oximetry 96 96 95 03/18/18 22:33 03/18/18 22:48 03/18/18 23:00 Temperature Pulse Rate 99 H 95 H 92 H Respiratory Rate 17 16 19 Blood Pressure 123/75 118/74 Pulse Oximetry 95 94 L 95 03/18/18 23:03 03/18/18 23:18 03/18/18 23:33 Temperature Pulse Rate 91 H 91 H 91 H Respiratory Rate 22 18 21 Blood Pressure 126/78 119/74 129/71 Pulse Oximetry 94 L 97 97 03/18/18 23:48 03/19/18 00:00 03/19/18 00:03 Temperature 98.9 F Pulse Rate 98 H 108 H 100 H Respiratory Rate 23 23 19 Blood Pressure 133/77 132/80 Pulse Oximetry 97 97 97 03/19/18 00:18 03/19/18 00:33 02/10/19 00:48 Temperature Pulse Rate 98 H 94 H 101 H Respiratory Rate 18 18 21 Blood Pressure 131/82 131/77 144/78 H Pulse Oximetry 97 97 97 03/19/18 01:00 03/19/18 01:03 03/19/18 01:18 Temperature Pulse Rate 98 H 93 H 94 H Respiratory Rate 18 18 19 Blood Pressure 131/77 135/80 Pulse Oximetry 97 97 97 03/19/18 01:33 03/19/18 01:48 03/19/18 02:00 Temperature Pulse Rate 97 H 100 H 99 H Respiratory Rate 17 18 19 Blood Pressure 140/82 134/83 Pulse Oximetry 97 97 97 03/19/18 02:03 03/19/18 02:18 03/19/18 02:33 Temperature Pulse Rate 107 H 108 H 105 H Respiratory Rate 20 18 15 Blood Pressure 137/80 133/80 149/85 H Pulse Oximetry 98 96 97 03/19/18 02:48 03/19/18 03:00 03/19/18 03:03 Temperature 98.8 F Pulse Rate 119 H 102 H 98 H Respiratory Rate 40 H 20 19 Blood Pressure 140/97 H 144/93 H Pulse Oximetry 97 97 96 03/19/18 03:18 03/19/18 03:33 03/19/18 03:48 Temperature Pulse Rate 133 H 114 H 107 H Respiratory Rate 32 H 21 17 Blood Pressure 148/94 H 141/91 H 158/95 H Pulse Oximetry 96 97 98 03/19/18 04:00 03/19/18 04:03 03/19/18 04:27 Temperature Pulse Rate 108 H 115 H 100 H Respiratory Rate 16 26 H 25 H Blood Pressure 152/98 H 141/80 H Pulse Oximetry 98 99 97 03/19/18 04:33 03/19/18 04:48 03/19/18 05:00 Temperature Pulse Rate 92 H 100 H 106 H Respiratory Rate 25 H 27 H 22 Blood Pressure 142/83 H 146/84 H Pulse Oximetry 97 97 97 03/19/18 05:03 03/19/18 05:18 03/19/18 05:33 Temperature Pulse Rate 104 H 101 H 106 H Respiratory Rate 19 21 18 Blood Pressure 147/87 H 150/90 H 150/90 H Pulse Oximetry 97 97 97 03/19/18 05:48 03/19/18 06:00 03/19/18 06:03 Temperature Pulse Rate 103 H 103 H 101 H Respiratory Rate 20 19 22 Blood Pressure 148/92 H 151/93 H Pulse Oximetry 97 97 97 03/19/18 06:18 03/19/18 06:33 03/19/18 06:48 Temperature Pulse Rate 101 H 97 H 101 H Respiratory Rate 21 25 H 27 H Blood Pressure 148/91 H 148/84 H 152/92 H Pulse Oximetry 97 96 96 03/19/18 07:00 03/19/18 07:03 03/19/18 07:18 Temperature Pulse Rate 106 H 105 H 104 H Respiratory Rate 19 18 19 Blood Pressure 154/92 H 157/95 H Pulse Oximetry 96 97 96 03/19/18 07:33 03/19/18 07:40 03/19/18 07:48 Temperature Pulse Rate 104 H 108 H Respiratory Rate 17 19 Blood Pressure 146/92 H 147/90 H Pulse Oximetry 97 96 97 03/19/18 08:00 03/19/18 08:03 03/19/18 08:18 Temperature 99.7 F H Pulse Rate 119 H 110 H 113 H Respiratory Rate 18 15 30 H Blood Pressure 162/96 H 148/92 H Pulse Oximetry 97 98 97 03/19/18 08:33 03/19/18 08:48 03/19/18 09:00 Temperature Pulse Rate 104 H 116 H 115 H Respiratory Rate 17 29 H 20 Blood Pressure 151/95 H 164/98 H Pulse Oximetry 97 98 97 03/19/18 09:03 03/19/18 09:18 03/19/18 09:33 Temperature Pulse Rate 118 H 135 H 119 H Respiratory Rate 19 28 H 13 Blood Pressure 148/87 H 135/84 142/88 H Pulse Oximetry 97 97 98 03/19/18 09:48 03/19/18 10:00 03/19/18 10:03 Temperature Pulse Rate 103 H 101 H 99 H Respiratory Rate 23 22 25 H Blood Pressure 139/83 144/87 H Pulse Oximetry 98 98 98 03/19/18 10:18 03/19/18 10:33 03/19/18 10:48 Temperature Pulse Rate 102 H 106 H 104 H Respiratory Rate 20 19 20 Blood Pressure 132/82 137/84 140/86 Pulse Oximetry 98 98 98 03/19/18 11:00 03/19/18 11:03 03/19/18 11:18 Temperature Pulse Rate 109 H 104 H 109 H Respiratory Rate 20 20 21 Blood Pressure 137/86 137/89 Pulse Oximetry 98 98 98 03/19/18 11:33 Temperature Pulse Rate 99 H Respiratory Rate 20 Blood Pressure 138/87 Pulse Oximetry 98 Intake & Output 03/18/18 03/19/18 03/19/18 18:59 06:59 18:59 Intake Total 1600 / 1600 240 / 240 Output Total 1085 / 1085 50 / 50 Balance 515 / 515 190 / 190 Weight 67 kg Intake: IV 1000 / 1000 D5W/1/2 NS Inj 1,000 ML @ 50 1000 / 1000 mls/hr IV.CONT .Q20H [facility] Rx#: [id number] Oral 600 / 600 240 / 240 Output: Urine 50 / 50 Hemodialysis Amount 1000 / 1000 Urine Amount (Catheter) 60 / 60 Indwelling Urethral Catheter 60 / 60 Wound Drainage 25 / Left Posterior Chest 25 / Other: Bladder Irrigation Fluid - Amount Instilled Indwelling Urethral Catheter 40 Date of Last Bowel Movement 03/18/18 03/19/18 03/19/18 Narrative: GENERAL: Patient sitting up in bed. Appears uncomfortable. CARDIOVASCULAR: Regular rate and rhythm without murmurs, gallops, or rubs. RESPIRATORY: Breath sounds equal bilaterally. No accessory muscle use. GASTROINTESTINAL: Abdomen soft, non-tender, nondistended. Left flank with percutaneous nephrostomy tube in place. Slight surrounding ecchymosis nontender. Urine with hematuria, no clots. MUSCULOSKELETAL: No cyanosis, or edema. BACK: Nontender without obvious deformity. No CVA tenderness. Urinary Catheter Management Indwelling Urethral Catheter: Cath placed during this visit: yes Reason for continuing: Gross Hematuria Insertion date: 03/09/18 Results Labs CBC & Chem 7: 03/19/18 08:44 03/19/18 08:44 Labs: Microbiology 03/17/18 19:31 Blood - Peripheral Aerobic Blood Culture - Preliminary No growth in 2 days 03/17/18 19:31 Blood - Peripheral Anaerobic Blood Culture - Preliminary No growth in 2 days 03/17/18 19:24 Blood - Peripheral Aerobic Blood Culture - Preliminary No growth in 2 days 03/17/18 19:24 Blood - Peripheral Anaerobic Blood Culture - Preliminary No growth in 2 days Assessment and Plan (1) Dysphagia: Code(s): R13.10 - Dysphagia, unspecified Status: Acute Plan 37-year-old male presents with complaint of abdominal pain hematuria found to be septic due to pyelonephritis with 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 He was admitted and seen by urology who arranged for percutaneous nephrostomy tube by IR on 03/08. Subsequently, patient continued to have gross hematuria require transfusion 2 units on 03/08 first and then again 2 units on March 11. Patient also developed acute renal failure and symptoms of dysphagia Septic shock due to pyelonephritis status post 8 days of Zosyn, now discontinued last vancomycin dose was 03/11 and stopped due to acute renal failure blood cultures negative urine culture negative, currently off of antibiotics. Remains afebrile. Appreciate infectious disease consult Severe hydronephrosis with UPJ obstruction with left horseshoe kidney status post percutaneous nephrostomy tube placement by IR on 03/08. Subsequent pain in left flank, CT shows localized hemorrhage and inflammation Continue management per urology Acute renal failure likely due to acute tubular necrosis Etiology is possibly due to vancomycin, sepsis and previous obstruction Creatinine worsened following localized hemorrhage, patient placed on dialysis Avoid nephrotoxic agents such as NSAIDs and contrast Patient still has urine output, consider holding Lasix since we have dialysis to remove extra fluid BMP today shows creatinine slightly worse Continue IV fluids as recommended by nephrology Appreciate nephrology consult and management Anemia due to acute blood loss status post 4 units of total transfusion Hemoglobin is stable in the 9.6 range continue to monitor CBC and transfuse as needed. Severe protein calorie malnutrition with albumin 2.0 continue mighty shakes supplements, dietitian consultation Tolerating solid food Dysphagia normals barium swallow EGD showed showed esophageal stricture status post dilation EGD biopsy pending Tolerating solid food Gastroenterology has signed off Hypertension controlled, much of it may be due to pain continue hydralazine, metoprolol Bilateral pleural effusion with bibasilar atelectasis encourage incentive spirometry use Extra fluid removed with dialysis Placing Lasix on hold due to worsening of renal impairment h/o Asthma no acute exacerbation nebs as needed DVT prophylaxis SCDs, chemoprophylaxis contraindicated due to acute hemorrhage Progress Note: Quality VTE Deep Vein Thrombosis/Pulmonary Embolism Present on Admission: No _ (1) Dysphagia Qualifiers: Dysphagia type:
[2018-03-19] MEDS: Dextrose 5%/NaCl 0.45% Inj 1,000 ML IV.CONT SCH (14:00)
[2018-03-19] MEDS: Acetaminophen 325 MG Tablet PO PRN (17:41)
--- NOTE | 2018-03-19 19:26 | P.PNNP ---
Subjective Interval history: Patient feels tired Physical Exam Vital signs: Vital Signs 03/18/18 19:33 03/18/18 19:48 03/18/18 20:00 Temperature Pulse Rate 111 H 111 H 111 H Respiratory Rate 18 15 21 Blood Pressure 132/82 133/88 Pulse Oximetry 96 96 96 03/18/18 20:03 03/18/18 20:18 03/18/18 20:33 Temperature Pulse Rate 112 H 114 H 112 H Respiratory Rate 18 27 H 38 H Blood Pressure 136/85 134/83 153/78 H Pulse Oximetry 96 96 97 03/18/18 21:01 03/18/18 21:03 03/18/18 21:18 Temperature Pulse Rate 125 H 118 H 106 H Respiratory Rate 30 H 19 19 Blood Pressure 123/84 130/86 127/82 Pulse Oximetry 97 95 03/18/18 21:33 03/18/18 21:48 03/18/18 22:00 Temperature Pulse Rate 104 H 102 H 102 H Respiratory Rate 17 16 18 Blood Pressure 127/78 125/82 Pulse Oximetry 97 97 96 03/18/18 22:03 03/18/18 22:18 03/18/18 22:33 Temperature Pulse Rate 102 H 100 H 99 H Respiratory Rate 18 16 17 Blood Pressure 130/79 118/76 123/75 Pulse Oximetry 96 95 95 03/18/18 22:48 03/18/18 23:00 03/18/18 23:03 Temperature Pulse Rate 95 H 92 H 91 H Respiratory Rate 16 19 22 Blood Pressure 118/74 126/78 Pulse Oximetry 94 L 95 94 L 03/18/18 23:18 03/18/18 23:33 03/18/18 23:48 Temperature 98.9 F Pulse Rate 91 H 91 H 98 H Respiratory Rate 18 21 23 Blood Pressure 119/74 129/71 133/77 Pulse Oximetry 97 97 97 03/19/18 00:00 03/19/18 00:03 03/19/18 00:18 Temperature Pulse Rate 108 H 100 H 98 H Respiratory Rate 23 19 18 Blood Pressure 132/80 131/82 Pulse Oximetry 97 97 97 03/19/18 00:33 03/19/18 00:48 03/19/18 01:00 Temperature Pulse Rate 94 H 101 H 98 H Respiratory Rate 18 21 18 Blood Pressure 131/77 144/78 H Pulse Oximetry 97 97 97 03/19/18 01:03 03/19/18 01:18 03/19/18 01:33 Temperature Pulse Rate 93 H 94 H 97 H Respiratory Rate 18 19 17 Blood Pressure 131/77 135/80 140/82 Pulse Oximetry 97 97 97 03/19/18 01:48 03/19/18 02:00 03/19/18 02:03 Temperature Pulse Rate 100 H 99 H 107 H Respiratory Rate 18 19 20 Blood Pressure 134/83 137/80 Pulse Oximetry 97 97 98 03/19/18 02:18 03/19/18 02:33 03/19/18 02:48 Temperature Pulse Rate 108 H 105 H 119 H Respiratory Rate 18 15 40 H Blood Pressure 133/80 149/85 H 140/97 H Pulse Oximetry 96 97 97 03/19/18 03:00 03/19/18 03:03 03/19/18 03:18 Temperature 98.8 F Pulse Rate 102 H 98 H 133 H Respiratory Rate 20 19 32 H Blood Pressure 144/93 H 148/94 H Pulse Oximetry 97 96 96 03/19/18 03:33 03/19/18 03:48 03/19/18 04:00 Temperature Pulse Rate 114 H 107 H 108 H Respiratory Rate 21 17 16 Blood Pressure 141/91 H 158/95 H Pulse Oximetry 97 98 98 03/19/18 04:03 03/19/18 04:27 03/19/18 04:33 Temperature Pulse Rate 115 H 100 H 92 H Respiratory Rate 26 H 25 H 25 H Blood Pressure 152/98 H 141/80 H 142/83 H Pulse Oximetry 99 97 97 03/19/18 04:48 03/19/18 05:00 03/19/18 05:03 Temperature Pulse Rate 100 H 106 H 104 H Respiratory Rate 27 H 22 19 Blood Pressure 146/84 H 147/87 H Pulse Oximetry 97 97 97 03/19/18 05:18 03/19/18 05:33 03/19/18 05:48 Temperature Pulse Rate 101 H 106 H 103 H Respiratory Rate 21 18 20 Blood Pressure 150/90 H 150/90 H 148/92 H Pulse Oximetry 97 97 97 03/19/18 06:00 03/19/18 06:03 03/19/18 06:18 Temperature Pulse Rate 103 H 101 H 101 H Respiratory Rate 19 22 21 Blood Pressure 151/93 H 148/91 H Pulse Oximetry 97 97 97 03/19/18 06:33 03/19/18 06:48 03/19/18 07:00 Temperature Pulse Rate 97 H 101 H 106 H Respiratory Rate 25 H 27 H 19 Blood Pressure 148/84 H 152/92 H Pulse Oximetry 96 96 96 03/19/18 07:03 03/19/18 07:18 03/19/18 07:33 Temperature Pulse Rate 105 H 104 H 104 H Respiratory Rate 18 19 17 Blood Pressure 154/92 H 157/95 H 146/92 H Pulse Oximetry 97 96 97 03/19/18 07:40 03/19/18 07:48 03/19/18 08:00 Temperature 99.7 F H Pulse Rate 108 H 119 H Respiratory Rate 19 18 Blood Pressure 147/90 H Pulse Oximetry 96 97 97 03/19/18 08:03 03/19/18 08:18 03/19/18 08:33 Temperature Pulse Rate 110 H 113 H 104 H Respiratory Rate 15 30 H 17 Blood Pressure 162/96 H 148/92 H 151/95 H Pulse Oximetry 98 97 97 03/19/18 08:48 03/19/18 09:00 03/19/18 09:03 Temperature Pulse Rate 116 H 114 H 118 H Respiratory Rate 29 H 20 19 Blood Pressure 164/98 H 148/87 H Pulse Oximetry 98 97 97 03/19/18 09:18 03/19/18 09:33 03/19/18 09:48 Temperature Pulse Rate 135 H 119 H 103 H Respiratory Rate 28 H 13 23 Blood Pressure 135/84 142/88 H 139/83 Pulse Oximetry 97 98 98 03/19/18 10:00 03/19/18 10:03 03/19/18 10:18 Temperature Pulse Rate 101 H 99 H 102 H Respiratory Rate 22 25 H 20 Blood Pressure 144/87 H 132/82 Pulse Oximetry 98 98 98 03/19/18 10:33 03/19/18 10:48 03/19/18 11:00 Temperature Pulse Rate 106 H 104 H 109 H Respiratory Rate 19 20 20 Blood Pressure 137/84 140/86 Pulse Oximetry 98 98 98 03/19/18 11:03 03/19/18 11:18 03/19/18 11:33 Temperature Pulse Rate 104 H 109 H 99 H Respiratory Rate 20 21 20 Blood Pressure 137/86 137/89 138/87 Pulse Oximetry 98 98 98 03/19/18 13:03 03/19/18 13:18 03/19/18 13:33 Temperature 99.0 F Pulse Rate 95 H 112 H Respiratory Rate 28 H 28 H Blood Pressure 133/85 137/87 126/86 Pulse Oximetry 97 98 03/19/18 13:48 03/19/18 14:00 03/19/18 14:03 Temperature Pulse Rate 117 H 103 H 109 H Respiratory Rate 25 H 17 23 Blood Pressure 141/86 H 134/88 Pulse Oximetry 98 98 98 03/19/18 14:18 03/19/18 14:33 03/19/18 14:48 Temperature Pulse Rate 131 H 112 H 98 H Respiratory Rate 36 H 24 21 Blood Pressure 150/96 H 139/87 144/85 H Pulse Oximetry 97 97 97 03/19/18 15:00 03/19/18 15:03 03/19/18 15:18 Temperature Pulse Rate 101 H 99 H 100 H Respiratory Rate 20 19 24 Blood Pressure 154/85 H 141/83 H Pulse Oximetry 98 98 98 03/19/18 15:33 03/19/18 15:48 03/19/18 16:00 Temperature 98.9 F Pulse Rate 100 H 101 H 97 H Respiratory Rate 24 19 21 Blood Pressure 150/82 H 140/83 Pulse Oximetry 98 98 97 03/19/18 16:03 03/19/18 16:18 03/19/18 16:33 Temperature Pulse Rate 102 H 96 H 101 H Respiratory Rate 19 15 19 Blood Pressure 140/81 139/86 151/85 H Pulse Oximetry 97 98 97 03/19/18 16:48 03/19/18 17:00 03/19/18 17:03 Temperature Pulse Rate 97 H 98 H 101 H Respiratory Rate 16 16 17 Blood Pressure 153/81 H 151/86 H Pulse Oximetry 98 98 98 03/19/18 17:18 03/19/18 17:33 03/19/18 17:48 Temperature Pulse Rate 102 H 102 H 100 H Respiratory Rate 20 30 H 23 Blood Pressure 138/82 142/82 H 142/83 H Pulse Oximetry 98 97 97 03/19/18 18:00 03/19/18 18:03 03/19/18 18:18 Temperature Pulse Rate 97 H 98 H 104 H Respiratory Rate 20 24 21 Blood Pressure 138/82 134/79 Pulse Oximetry 97 97 98 03/19/18 18:33 Temperature Pulse Rate 108 H Respiratory Rate 19 Blood Pressure 136/78 Pulse Oximetry 97 Intake & Output 03/19/18 03/19/18 03/20/18 06:59 18:59 06:59 Intake Total 240 / 240 1750 / 1750 Output Total 50 / 50 400 / 400 Balance 190 / 190 1350 / 1350 Weight 67 kg Intake: IV 1000 / 1000 D5W/1/2 NS Inj 1,000 ML @ 50 1000 / 1000 mls/hr IV.CONT .Q20H [facility] Rx#: [id number] Oral 240 / 240 750 / 750 Output: Urine 50 / 50 Urine Amount (Catheter) 150 / 150 Indwelling Urethral Catheter 150 / 150 Wound Drainage 250 / 250 Left Posterior Chest 250 / 250 Other: Date of Last Bowel Movement 03/19/18 03/19/18 Narrative: Physical examination GENERAL: Patient is a well-nourished, well-developed male, awake and alert, not in respiratory distress. SKIN: Cool and dry. No generalized rash, no ecchymoses and no evidence of embolic lesions. HEAD: Atraumatic. Normocephalic. No temporal wasting, or tenderness. EYES: [place] conjunctiva. No petechia or hemorrhage. Pupils equal, round and reactive to light. Extraocular movements full and intact. No scleral icterus. No injection or drainage. EARS, NOSE AND THROAT: Nose without bleeding or purulent nasal discharge. No sinus tenderness. Mucous membranes pink and moist. No oral lesions noted. No exudate. No oral thrush. NECK: Trachea midline. Supple and not tender, no meningeal signs CARDIOVASCULAR: Regular rate and rhythm. No murmurs, rubs or gallops heard RESPIRATORY: Clear to auscultation. Breath sounds equal bilaterally. No rales , wheezing or rhonchi ABDOMEN: Soft, non-tender, nondistended. Bowel sounds present and normoactive. No guarding. No rebound. No organomegaly. L nephrostomy tube with bloody urine : [place] with bloody urine EXTREMITIES: No clubbing, cyanosis. has bilateral pedal edema. No calf tenderness. NEUROLOGICAL: Awake and alert. Cranial nerves grossly intact. Motor grossly within normal limits. PSYCHIATRIC: Normal affect, calm and cooperative. LINE: No evidence of infection - Urinary Catheter Management Indwelling Urethral Catheter Cath placed during this visit: yes Reason for continuing: Gross Hematuria Insertion date: 03/09/18 Assessment and Plan - Assessment (1) Acute kidney injury Code(s): N17.9 - Acute kidney failure, unspecified Status: Acute Plan: [place] possible ATN Urine EOS negative Repeat Renal ultrasound with known horseshoe kidney. There is no hydronephrosis on the right. There is moderate dilatation of the collecting system on the left with very poor delineation of the renal cortex. There is a 4 cm complex fluid collection around the nephrostomy. There is moderate free fluid present in the pelvis. Patient has been on dialysis liters 1 L removed Tuesday Continue to monitor progress follow BMP He has hematuria Follows with Dr. Scott Avoid nephrotoxins including IV contrast and NSAIDS (2) Hypertension Code(s): I10 - Essential (primary) hypertension Status: Acute Plan: On hydralazine and metoprolol. Will monitor. (3) Sepsis Code(s): A41.9 - Sepsis, unspecified organism Status: Acute Plan: On antibiotics, renal dose as indicated. (4) Hydronephrosis of left kidney Code(s): N13.30 - Unspecified hydronephrosis Status: Chronic Onset Date: Unknown Plan: S/p nephrostomy tube Urology managing. (5) Anemia Code(s): D64.9 - Anemia, unspecified Status: Acute Plan: HGB at 9.6 Transfuse for HGB less than 7.0 Epogen with dialysis
[2018-03-19] MEDS ORDERED: Potassium Bicarbonate 25 MEQ Effervescent Tablet PO ONE (20:00)
[2018-03-20 07:22] LABS: Baso # (Auto) 0.1 th/mm3 (0.0-0.2); Baso % (Auto) 0.6 % (0.0-2.0); Eos # (Auto) 0.2 th/mm3 (0.0-0.4); Eos % (Auto) 1.5 % (0.0-4.0); Lymph # (Auto) 1.4 th/mm3 (1.0-4.8); Lymph % (Auto) 9.4 % (9.0-44.0); Mean Corpuscular HGB Conc 34.1 % (32.0-36.0); Mean Corpuscular Hemoglobin 29.7 pg (27.0-34.0); Mean Corpuscular Volume 87.1 fL (80.0-100.0); Mean Platelet Volume 8.5 fL (7.0-11.0); Mono # (Auto) 1.2 th/mm3 (0.0-0.9); Mono % (Auto) 8.4 % (0.0-8.0); Neut # (Auto) 11.8 th/mm3 (1.8-7.7); Neut % (Auto) 80.1 % (16.0-70.0); Platelet Count 441 th/mm3 (150-450); Red Blood Count 2.18 mil/mm3 (4.50-5.90); Red Cell Distribution Width 15.8 % (11.6-17.2); White Blood Count 14.7 th/mm3 (4.0-11.0)
[2018-03-20 07:25] LABS: Hemoglobin 6.5 gm/dL (13.0-17.0)
[2018-03-20 07:34] LABS: Calcium 7.7 mg/dL (8.5-10.1); Carbon Dioxide 30.1 meq/L (21.0-32.0); Potassium 3.3 meq/L (3.5-5.1)
[2018-03-20] MEDS ORDERED: Acetaminophen 325 MG Tablet PO PRN (07:59)
[2018-03-20] MEDS ORDERED: Potassium Bicarbonate 25 MEQ Effervescent Tablet PO ONE (07:59)
[2018-03-20] MEDS ORDERED: Sodium Chlor 0.9% Inj 250 ML IV.SIG SCH (08:00)
[2018-03-20 08:33] LABS: Eosinophils 1 % (0-4); Lymphocytes 5 % (9-44); Monocytes 3 % (0-8); Platelet Estimate Normal (Normal); Platelet Morphology Normal (Normal)
[2018-03-20] MEDS: Metoprolol Tartrate 25 MG Tablet PO SCH ×2 (09:00→21:42)
[2018-03-20] MEDS: Senna/Docusate Sodium 8.6/50 MG Tablet PO SCH (09:01)
--- NOTE | 2018-03-20 09:04 | P.PNURO ---
Subjective Patient symptoms today: Pt seen and examined. Hgb continues to drop. Pt continues to receive Heparin during dialysis. Need to hold this to stop the bleeding. Objective Vital Signs: Vital Signs 03/19/18 09:03 03/19/18 09:18 03/19/18 09:33 Temperature Pulse Rate 118 H 135 H 119 H Respiratory Rate 19 28 H 13 Blood Pressure 148/87 H 135/84 142/88 H Pulse Oximetry 97 97 98 03/19/18 09:48 03/19/18 10:00 03/19/18 10:03 Temperature Pulse Rate 103 H 101 H 99 H Respiratory Rate 23 22 25 H Blood Pressure 139/83 144/87 H Pulse Oximetry 98 98 98 03/19/18 10:18 03/19/18 10:33 03/19/18 10:48 Temperature Pulse Rate 102 H 106 H 104 H Respiratory Rate 20 19 20 Blood Pressure 132/82 137/84 140/86 Pulse Oximetry 98 98 98 03/19/18 11:00 03/19/18 11:03 03/19/18 11:18 Temperature Pulse Rate 109 H 104 H 109 H Respiratory Rate 20 20 21 Blood Pressure 137/86 137/89 Pulse Oximetry 98 98 98 03/19/18 11:33 03/19/18 13:03 03/19/18 13:18 Temperature 99.0 F Pulse Rate 99 H 95 H Respiratory Rate 20 28 H Blood Pressure 138/87 133/85 137/87 Pulse Oximetry 98 97 03/19/18 13:33 03/19/18 13:48 03/19/18 14:00 Temperature Pulse Rate 112 H 117 H 103 H Respiratory Rate 28 H 25 H 17 Blood Pressure 126/86 141/86 H Pulse Oximetry 98 98 98 03/19/18 14:03 03/19/18 14:18 03/19/18 14:33 Temperature Pulse Rate 109 H 131 H 112 H Respiratory Rate 23 36 H 24 Blood Pressure 134/88 150/96 H 139/87 Pulse Oximetry 98 97 97 03/19/18 14:48 03/19/18 15:00 03/19/18 15:03 Temperature Pulse Rate 98 H 101 H 99 H Respiratory Rate 21 20 19 Blood Pressure 144/85 H 154/85 H Pulse Oximetry 97 98 98 03/19/18 15:18 03/19/18 15:33 03/19/18 15:48 Temperature Pulse Rate 100 H 100 H 101 H Respiratory Rate 24 24 19 Blood Pressure 141/83 H 150/82 H 140/83 Pulse Oximetry 98 98 98 03/19/18 16:00 03/19/18 16:03 03/19/18 16:18 Temperature 98.9 F Pulse Rate 97 H 102 H 96 H Respiratory Rate 21 19 15 Blood Pressure 140/81 139/86 Pulse Oximetry 97 97 98 03/19/18 16:33 03/19/18 16:48 03/19/18 17:00 Temperature Pulse Rate 101 H 97 H 98 H Respiratory Rate 19 16 16 Blood Pressure 151/85 H 153/81 H Pulse Oximetry 97 98 98 03/19/18 17:03 03/19/18 17:18 03/19/18 17:33 Temperature Pulse Rate 101 H 102 H 102 H Respiratory Rate 17 20 30 H Blood Pressure 151/86 H 138/82 142/82 H Pulse Oximetry 98 98 97 03/19/18 17:48 03/19/18 18:00 03/19/18 18:03 Temperature Pulse Rate 100 H 97 H 98 H Respiratory Rate 23 20 24 Blood Pressure 142/83 H 138/82 Pulse Oximetry 97 97 97 03/19/18 18:18 03/19/18 18:33 03/19/18 18:48 Temperature Pulse Rate 104 H 108 H 114 H Respiratory Rate 21 19 17 Blood Pressure 134/79 136/78 132/79 Pulse Oximetry 98 97 97 03/19/18 19:00 03/19/18 19:03 03/19/18 19:18 Temperature 98.4 F Pulse Rate 108 H 106 H 102 H Respiratory Rate 21 17 19 Blood Pressure 137/89 130/85 Pulse Oximetry 98 98 98 03/19/18 19:33 03/19/18 19:48 03/19/18 20:00 Temperature Pulse Rate 96 H 95 H 92 H Respiratory Rate 30 H 30 H 29 H Blood Pressure 127/80 132/79 Pulse Oximetry 97 98 98 03/19/18 20:03 03/19/18 20:18 03/19/18 20:33 Temperature Pulse Rate 94 H 93 H 92 H Respiratory Rate 20 27 H 20 Blood Pressure 136/79 135/79 130/83 Pulse Oximetry 98 98 97 03/19/18 20:48 03/19/18 21:00 02/10/19 21:03 Temperature Pulse Rate 96 H 98 H 100 H Respiratory Rate 17 18 20 Blood Pressure 134/85 140/87 Pulse Oximetry 97 97 98 03/19/18 21:18 03/19/18 21:33 03/19/18 21:48 Temperature Pulse Rate 96 H 104 H 93 H Respiratory Rate 16 26 H 17 Blood Pressure 130/83 128/82 131/80 Pulse Oximetry 97 97 97 03/19/18 22:00 03/19/18 22:03 03/19/18 22:18 Temperature Pulse Rate 91 H 89 91 H Respiratory Rate 16 19 16 Blood Pressure 131/82 130/82 Pulse Oximetry 98 97 96 03/19/18 22:33 03/19/18 22:48 03/19/18 23:00 Temperature Pulse Rate 89 91 H 89 Respiratory Rate 18 18 19 Blood Pressure 133/80 131/82 Pulse Oximetry 97 97 97 03/19/18 23:03 03/19/18 23:18 03/19/18 23:33 Temperature Pulse Rate 91 H 89 87 Respiratory Rate 18 18 13 Blood Pressure 121/79 113/74 122/81 Pulse Oximetry 97 97 97 03/19/18 23:48 03/20/18 00:00 03/20/18 00:03 Temperature Pulse Rate 87 90 87 Respiratory Rate 20 17 15 Blood Pressure 128/82 136/85 Pulse Oximetry 97 99 98 03/20/18 00:18 03/20/18 00:33 03/20/18 01:00 Temperature Pulse Rate 92 H 89 90 Respiratory Rate 15 18 19 Blood Pressure 132/86 136/86 Pulse Oximetry 98 97 96 03/20/18 01:03 03/20/18 01:18 03/20/18 01:33 Temperature Pulse Rate 89 88 92 H Respiratory Rate 15 15 17 Blood Pressure 130/84 133/82 128/87 Pulse Oximetry 98 97 97 03/20/18 01:48 03/20/18 02:00 03/20/18 02:03 Temperature Pulse Rate 88 88 89 Respiratory Rate 15 16 18 Blood Pressure 130/87 142/86 H Pulse Oximetry 96 97 97 03/20/18 02:18 03/20/18 02:33 03/20/18 02:48 Temperature Pulse Rate 90 88 87 Respiratory Rate 21 19 20 Blood Pressure 139/86 132/82 134/81 Pulse Oximetry 95 97 96 03/20/18 03:00 03/20/18 03:03 03/20/18 03:18 Temperature Pulse Rate 90 88 87 Respiratory Rate 16 16 16 Blood Pressure 140/82 140/83 Pulse Oximetry 96 96 96 03/20/18 03:33 03/20/18 03:48 03/20/18 04:00 Temperature 98.9 F Pulse Rate 90 90 90 Respiratory Rate 15 16 18 Blood Pressure 145/80 H 140/84 146/82 H Pulse Oximetry 97 97 97 03/20/18 04:03 03/20/18 04:18 03/20/18 04:33 Temperature Pulse Rate 95 H 89 92 H Respiratory Rate 17 15 15 Blood Pressure 146/82 H 144/82 H 137/82 Pulse Oximetry 98 97 97 03/20/18 04:48 03/20/18 05:00 03/20/18 05:03 Temperature Pulse Rate 95 H 91 H 91 H Respiratory Rate 19 17 17 Blood Pressure 141/84 H 143/85 H Pulse Oximetry 97 97 97 03/20/18 05:18 03/20/18 05:33 03/20/18 05:48 Temperature Pulse Rate 87 87 86 Respiratory Rate 14 15 16 Blood Pressure 138/85 155/83 H 151/87 H Pulse Oximetry 96 96 96 03/20/18 06:00 03/20/18 06:03 03/20/18 06:18 Temperature Pulse Rate 95 H 98 H 92 H Respiratory Rate 17 24 15 Blood Pressure 128/85 139/86 Pulse Oximetry 96 96 97 Intake & Output 03/19/18 03/20/18 03/20/18 18:59 06:59 18:59 Intake Total 1750 / 1750 240 / 240 Output Total 400 / 400 900 / 900 Balance 1350 / 1350 -660 / -660 Weight 67.6 kg Intake: IV 1000 / 1000 D5W/1/2 NS Inj 1,000 ML @ 50 1000 / 1000 mls/hr IV.CONT .Q20H [facility] Rx#: [id number] Oral 750 / 750 240 / 240 Output: Urine Amount (Catheter) 150 / 150 150 / 150 Indwelling Urethral Catheter 150 / 150 150 / 150 Urine Amount (Stoma) 750 / 750 Nephrostomy Tube Left 750 / 750 Wound Drainage 250 / 250 Left Posterior Chest 250 / 250 Other: Date of Last Bowel Movement 03/19/18 03/19/18 Result Diagrams: 03/20/18 07:01 03/20/18 07:01 Medications and IVs: Active Medications Generic Name Dose Route Start Last Admin Trade Name Freq PRN Reason Stop Dose Admin Acetaminophen 650 mg 03/20/18 07:59 Tylenol PO Q4H PRN SEE LABEL COMMENTS Acetaminophen 650 mg 03/07/18 23:05 03/19/18 17:41 Tylenol PO 650 mg Q4H PRN Administration Temp > 100.4 Acetaminophen 650 mg 03/17/18 11:03 Tylenol PO UNSCH PRN SEE LABEL COMMENTS Belladonna Alkaloids/Opium 60 mg 03/10/18 15:43 03/17/18 16:38 B & O Supp RECTAL 60 mg Q6HR PRN Administration BLADDER SPASM Diphenhydramine HCl 25 mg 03/20/18 07:59 Benadryl PO Q4H PRN SEE LABEL COMMENTS Diphenhydramine HCl 25 mg 03/17/18 11:03 Benadryl PO UNSCH PRN SEE LABEL COMMENTS Epoetin Brandt 6,000 unit 03/17/18 11:03 03/18/18 12:18 Epogen Inj IV.PUSH 6,000 unit UNSCH PRN Administration SEE LABEL COMMENTS Furosemide 40 mg 03/15/18 09:00 03/18/18 09:53 Lasix Inj IV.PUSH Not Given BID@0900,1800 [facility] Gelatin 1 foam 03/17/18 11:03 Gelfoam 12 Mm/7 Mm Topical TOPICAL PRN PRN help stop bleeding from site Gentamicin Sulfate 20 mg 03/17/18 11:03 03/18/18 12:18 Gentamicin Inj OTHER 20 mg WITH DIALYSIS PRN Administration Dwell Gentamycin Lock Heparin Sodium (Porcine) 8,000 units 03/17/18 11:03 Heparin Inj OTHER WITH DIALYSIS PRN for machine prime Heparin Sodium (Porcine) 1,000 units 03/17/18 11:03 03/18/18 12:18 Heparin Inj OTHER 1,000 units WITH DIALYSIS PRN Administration Dwell Heparin to Fill Catheter Hydralazine HCl 25 mg 03/12/18 19:23 Apresoline PO TID [facility] Hydralazine HCl 10 mg 03/17/18 18:44 03/17/18 19:59 Apresoline Inj IV.PUSH 10 mg Q30M PRN Administration SBP>180, DBP>110 Hydromorphone HCl 0.5 mg 03/18/18 10:15 Dilaudid Pf Inj IV.PUSH Q4H PRN BREAKTHROUGH PAIN Sodium Chloride 250 mls @ 15 mls/hr 03/20/18 08:00 Ns Inj IV.SIG 03/21/18 00:39 ONCE CHLOE Dextrose/Sodium Chloride 1,000 mls @ 50 mls/hr 03/15/18 17:06 03/19/18 14:00 D5w/1/2 Ns Inj IV.CONT 50 mls/hr .Q20H [facility]E Administration Albumin Human 100 mls @ 60 mls/hr 03/17/18 11:03 Flexbumin 25% Inj IV.SIG WITH DIALYSIS PRN hypotension / volume replace Sodium Chloride 1,000 mls @ 0 mls/hr 03/17/18 11:03 Ns Inj OTHER .Q0M PRN for prime and rinse back As Directed Sodium Chloride 1,000 mls @ 200 mls/hr 03/17/18 11:03 Ns Inj OTHER .Q5H PRN for dialyzer flush PRN Sodium Chloride 1,000 mls @ 0 mls/hr 03/17/18 11:03 Ns Inj IV.CONT .Q0M PRN hypotension / volume replace As Directed Mannitol 12.5 gm 03/17/18 11:03 Mannitol Inj IV.PUSH UNSCH PRN hypotension / volume replace Metoprolol Tartrate 12.5 mg 03/11/18 09:00 03/20/18 09:00 Lopressor PO 12.5 mg BID CHLOE Administration Miscellaneous 1 each 03/11/18 10:00 03/15/18 08:51 Pill Splitter OTHER 1 each UNSCH CHLOE Administration Naloxone HCl 0.4 mg 03/17/18 16:50 Narcan Inj IV.PUSH UNSCH PRN SEE LABEL COMMENTS Nitroglycerin 0.4 mg 03/17/18 11:03 Nitrostat Sl SL Q5M PRN CHEST PAIN Ondansetron HCl 4 mg 03/07/18 23:05 03/19/18 08:19 Zofran Inj IV.PUSH 4 mg Q6H PRN Administration NAUSEA OR VOMITING Ondansetron HCl 4 mg 03/17/18 11:03 Zofran Inj IV.PUSH UNSCH PRN NAUSEA OR VOMITING Oxybutynin Chloride 5 mg 03/17/18 21:00 03/20/18 09:01 Ditropan PO 5 mg BID CHLOE Administration Oxycodone HCl 5 mg 03/18/18 10:16 03/19/18 02:48 Roxicodone PO 5 mg Q4H PRN Administration Acute Pain 1-10 Pantoprazole Sodium 40 mg 03/13/18 15:45 03/20/18 09:00 Protonix PO 40 mg DAILY CHLOE Administration Polyethylene Glycol 17 gm 03/09/18 14:24 03/09/18 21:14 Miralax PO 17 gm DAILY PRN Administration Moderate-severe constipation Senna/Docusate Sodium 1 tab 03/09/18 21:00 03/20/18 09:01 Allyssa-Colace PO Not Given BID CHLOE Sodium Chloride 2 ml 03/08/18 09:00 03/20/18 09:01 Ns Flush IV.FLUSH 2 ml BID CHLOE Administration Sodium Chloride 2 ml 03/07/18 23:05 Ns Flush IV.FLUSH PRN PRN FLUSH AFTER USING IV ACCESS Sodium Chloride 5 ml 03/17/18 11:03 Ns Flush IV.FLUSH PRN PRN flush each lumen during HD Objective Remarks: CV: sinus tach Abd:soft, mild distension; no rebound Price: old dark blood Ext: neg C/C/E 03/10 CV: sinus tach Abd:soft,less tenderness and distension Price: blood tinged PCNT: bloody 03/10 16:00: SP pains. Bladder not palpable. No SP tenderness. Abd: now non tender LLQ. Bloody urine via nephrostomy, no clots. Bloody urine via price catheter, no clots. 03/11: Scant urine output via Nephrostomy tube. It may not be draining, will wait and see. Fairly good urine output via price catheter. Urine dark blood tinged, no clots. BP varies high to normal, Pulse varies, temp 99. 03/12: See "Subjective" for the Objective. Suspect Vancomycin toxicity causing deterioration in kidney function and decreased urine output. N tube draining dark burgundy urine. PLAN: Dr. Little following the labs. N tube irrigation by IR if needed. 03/13 Abd:soft,nt,nd Left PNCT with blood Price: hematuria 03/14 Abd:soft,nt,nd Left PCNT: bloody Price: blood tinged 03/15 Abd:soft,nt,nd Left PCNT: bloody Price: blood tinged 03/16 Abd:soft,nt,nd Left PCNT: bloody Price: blood tinged 03/17 Abd:soft,nt,nd Left PCNT: bloody Price: blood tinged 03/20 Abd:soft,nt,nd Left PCNT: bloody Price: blood tinged Assessment and Plan - Assessment (1) Sepsis due to urinary tract infection Code(s): A41.9 - Sepsis, unspecified organism; N39.0 - Urinary tract infection, site not specified Status: Acute Onset Date: ~03/07/18 (2) Hydronephrosis of left kidney Code(s): N13.30 - Unspecified hydronephrosis Status: Chronic (3) 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 Back up plan is to try to place a urinary stent cystoscopically in the OR. However, there is a great possibility that the presumed UPJ stenosis will prevent passage of guide wires and stent. 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 Discussed with Dr. Little. 03/11: N tube may or may not be draining. Sepsis improving. Still having bladder spasms, receiving Morphine. PLAN: Continue same. 03/12 See "Subjective", "Objective". 03/13 37 y.o male with sepsis and h/o horseshoe kidney s/p PCNT placement with hematuria Continue supportive measures for now Transfuse PRBC's today if repeat Hgb is below 8 Monitor u/o; avoid nephrotoxins Will follow. 03/14 37 y.o male with sepsis and horseshoe kidney s/p PCNT with hematuria and ARF Hgb stablized at 8.3 this AM. Creatinine rising to 5.7; u/o dropping Await Nephrology input Monitor u/o Continue conservative measures for now. 03/15 37 y.o male with sepsis and horseshoe kidney s/p PCNT with hematuria and worsening ARF. Creatinine up to 7.2 up from 5.7. Hgb down to 7.8. Will transfuse 1 unit PRBC's. Await Nephrology input Monitor u/o. 03/16 37 y.o male with sepsis and horseshoe kidney s/p PCNT with hematuria and worsening ARF probably due to ATN Continue conservative management from standpoint. No evidence of active bleeding. Will follow. 03/17 37 y.o male with sepsis s/p PCNT with hematuria and ARF Maintain price catheter- urine is clearing and less bloody Continue conservative measures. 03/20 37 y.o male with sepsis s/p PCNT with hematuria and ARF Transfuse [address] scan today Hold Heparin with dialysis.
--- NOTE | 2018-03-20 10:42 | P.PNID ---
Subjective Remarks: Patient is a 37-year-old male, initially presented at [facility] for evaluation of abdominal pain on the left side. He also had some nausea, as well as some hematuria. Evaluation revealed hydronephrosis on the left side. Patient was transferred to [facility] for further management. Patient had an elevated WBC and creatinine. 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 Patient underwent placement of a nephrostomy tube on the left side. Patient has had problem with significant hematuria, and has required PRBC transfusion. He had one low-grade temperature since admission. He was put on antibiotics for UTI, and was on Zosyn from March 08 - March 15. Patient's creatinine continued to increase although he has good urine output from the nephrostomy, and lower output in his Caldwell catheter. His creatinine has gone up to 8. Vas-Cath was placed today and hemodialysis is planned. Patient currently is complaining of pain in the right neck where he has the Vas-Cath. He has mild pain over the left nephrostomy. He continues to have significant hematuria. He has been afebrile. He has had a few loose stools today. His last urinalysis was from March 13 with some mild pyuria and the culture is negative. Patient has been off antibiotics since March 15. Infectious disease consultation has been requested to evaluate the patient for possible persistent infection. Notes reviewed Episode of rigors, tachycardia and fevers last Tuesday PM 03/[address] A/P noted - bladder with some distension and has clots Repeat BC ok UC negative Got Zosyn x 1 days, D/C Remains afebrile NO further rigors No flank pain, no suprapubic pain Hgb down to 6.5 - to get PRBC transfusion Antibiotics: NOne Past Medical History: Asthma Seizures Hx of tympanostomy tubes Pneumothorax Allergies/Adverse Reactions: Allergies meperidine [From Demerol] Allergy (Verified 03/09/18 04:22) Hives Objective Vital Signs 03/19/18 10:48 03/19/18 11:00 03/19/18 11:03 Temperature Pulse Rate 104 H 109 H 104 H Respiratory Rate 20 20 20 Blood Pressure 140/86 137/86 Pulse Oximetry 98 98 98 03/19/18 11:18 03/19/18 11:33 03/19/18 13:03 Temperature 99.0 F Pulse Rate 109 H 99 H Respiratory Rate 21 20 Blood Pressure 137/89 138/87 133/85 Pulse Oximetry 98 98 03/19/18 13:18 03/19/18 13:33 03/19/18 13:48 Temperature Pulse Rate 95 H 112 H 117 H Respiratory Rate 28 H 28 H 25 H Blood Pressure 137/87 126/86 141/86 H Pulse Oximetry 97 98 98 03/19/18 14:00 03/19/18 14:03 03/19/18 14:18 Temperature Pulse Rate 103 H 109 H 131 H Respiratory Rate 17 23 36 H Blood Pressure 134/88 150/96 H Pulse Oximetry 98 98 97 03/19/18 14:33 03/19/18 14:48 03/19/18 15:00 Temperature Pulse Rate 112 H 98 H 101 H Respiratory Rate 24 21 20 Blood Pressure 139/87 144/85 H Pulse Oximetry 97 97 98 03/19/18 15:03 03/19/18 15:18 03/19/18 15:33 Temperature Pulse Rate 99 H 100 H 100 H Respiratory Rate 19 24 24 Blood Pressure 154/85 H 141/83 H 150/82 H Pulse Oximetry 98 98 98 03/19/18 15:48 03/19/18 16:00 03/19/18 16:03 Temperature 98.9 F Pulse Rate 101 H 97 H 102 H Respiratory Rate 19 21 19 Blood Pressure 140/83 140/81 Pulse Oximetry 98 97 97 03/19/18 16:18 03/19/18 16:33 03/19/18 16:48 Temperature Pulse Rate 96 H 101 H 97 H Respiratory Rate 15 19 16 Blood Pressure 139/86 151/85 H 153/81 H Pulse Oximetry 98 97 98 03/19/18 17:00 03/19/18 17:03 03/19/18 17:18 Temperature Pulse Rate 98 H 101 H 102 H Respiratory Rate 16 17 20 Blood Pressure 151/86 H 138/82 Pulse Oximetry 98 98 98 03/19/18 17:33 03/19/18 17:48 03/19/18 18:00 Temperature Pulse Rate 102 H 100 H 97 H Respiratory Rate 30 H 23 20 Blood Pressure 142/82 H 142/83 H Pulse Oximetry 97 97 97 03/19/18 18:03 03/19/18 18:18 03/19/18 18:33 Temperature Pulse Rate 98 H 104 H 108 H Respiratory Rate 24 21 19 Blood Pressure 138/82 134/79 136/78 Pulse Oximetry 97 98 97 03/19/18 18:48 03/19/18 19:00 03/19/18 19:03 Temperature 98.4 F Pulse Rate 114 H 108 H 106 H Respiratory Rate 17 21 17 Blood Pressure 132/79 137/89 Pulse Oximetry 97 98 98 03/19/18 19:18 03/19/18 19:33 03/19/18 19:48 Temperature Pulse Rate 102 H 96 H 95 H Respiratory Rate 19 30 H 30 H Blood Pressure 130/85 127/80 132/79 Pulse Oximetry 98 97 98 03/19/18 20:00 03/19/18 20:03 03/19/18 20:18 Temperature Pulse Rate 92 H 94 H 93 H Respiratory Rate 29 H 20 27 H Blood Pressure 136/79 135/79 Pulse Oximetry 98 98 98 03/19/18 20:33 03/19/18 20:48 03/19/18 21:00 Temperature Pulse Rate 92 H 96 H 98 H Respiratory Rate 20 17 18 Blood Pressure 130/83 134/85 Pulse Oximetry 97 97 97 03/19/18 21:03 03/19/18 21:18 03/19/18 21:33 Temperature Pulse Rate 100 H 96 H 104 H Respiratory Rate 20 16 26 H Blood Pressure 140/87 130/83 128/82 Pulse Oximetry 98 97 97 03/19/18 21:48 03/19/18 22:00 03/19/18 22:03 Temperature Pulse Rate 93 H 91 H 89 Respiratory Rate 17 16 19 Blood Pressure 131/80 131/82 Pulse Oximetry 97 98 97 03/19/18 22:18 03/19/18 22:33 03/19/18 22:48 Temperature Pulse Rate 91 H 89 91 H Respiratory Rate 16 18 18 Blood Pressure 130/82 133/80 131/82 Pulse Oximetry 96 97 97 03/19/18 23:00 03/19/18 23:03 03/19/18 23:18 Temperature Pulse Rate 89 91 H 89 Respiratory Rate 19 18 18 Blood Pressure 121/79 113/74 Pulse Oximetry 97 97 97 03/19/18 23:33 03/19/18 23:48 03/20/18 00:00 Temperature Pulse Rate 87 87 90 Respiratory Rate 13 20 17 Blood Pressure 122/81 128/82 Pulse Oximetry 97 97 99 02/11/19 00:03 03/20/18 00:18 03/20/18 00:33 Temperature Pulse Rate 87 92 H 89 Respiratory Rate 15 15 18 Blood Pressure 136/85 132/86 136/86 Pulse Oximetry 98 98 97 03/20/18 01:00 03/20/18 01:03 03/20/18 01:18 Temperature Pulse Rate 90 89 88 Respiratory Rate 19 15 15 Blood Pressure 130/84 133/82 Pulse Oximetry 96 98 97 03/20/18 01:33 03/20/18 01:48 03/20/18 02:00 Temperature Pulse Rate 92 H 88 88 Respiratory Rate 17 15 16 Blood Pressure 128/87 130/87 142/86 H Pulse Oximetry 97 96 97 03/20/18 02:03 03/20/18 02:18 03/20/18 02:33 Temperature Pulse Rate 89 90 88 Respiratory Rate 18 21 19 Blood Pressure 139/86 132/82 Pulse Oximetry 97 95 97 03/20/18 02:48 03/20/18 03:00 03/20/18 03:03 Temperature Pulse Rate 87 90 88 Respiratory Rate 20 16 16 Blood Pressure 134/81 140/82 Pulse Oximetry 96 96 96 03/20/18 03:18 03/20/18 03:33 03/20/18 03:48 Temperature Pulse Rate 87 90 90 Respiratory Rate 16 15 16 Blood Pressure 140/83 145/80 H 140/84 Pulse Oximetry 96 97 97 03/20/18 04:00 03/20/18 04:03 03/20/18 04:18 Temperature 98.9 F Pulse Rate 90 95 H 89 Respiratory Rate 18 17 15 Blood Pressure 146/82 H 146/82 H 144/82 H Pulse Oximetry 97 98 97 03/20/18 04:33 03/20/18 04:48 03/20/18 05:00 Temperature Pulse Rate 92 H 95 H 91 H Respiratory Rate 15 19 17 Blood Pressure 137/82 141/84 H Pulse Oximetry 97 97 97 03/20/18 05:03 03/20/18 05:18 03/20/18 05:33 Temperature Pulse Rate 91 H 87 87 Respiratory Rate 17 14 15 Blood Pressure 143/85 H 138/85 155/83 H Pulse Oximetry 97 96 96 03/20/18 05:48 03/20/18 06:00 03/20/18 06:03 Temperature Pulse Rate 86 95 H 98 H Respiratory Rate 16 17 24 Blood Pressure 151/87 H 128/85 Pulse Oximetry 96 96 96 03/20/18 06:18 Temperature Pulse Rate 92 H Respiratory Rate 15 Blood Pressure 139/86 Pulse Oximetry 97 Intake & Output 03/19/18 03/20/18 03/20/18 18:59 06:59 18:59 Intake Total 1750 / 1750 240 / 240 Output Total 400 / 400 900 / 900 Balance 1350 / 1350 -660 / -660 Weight 67.6 kg Intake: IV 1000 / 1000 D5W/1/2 NS Inj 1,000 ML @ 50 1000 / 1000 mls/hr IV.CONT .Q20H [facility] Rx#: [id number] Oral 750 / 750 240 / 240 Output: Urine Amount (Catheter) 150 / 150 150 / 150 Indwelling Urethral Catheter 150 / 150 150 / 150 Urine Amount (Stoma) 750 / 750 Nephrostomy Tube Left 750 / 750 Wound Drainage 250 / 250 Left Posterior Chest 250 / 250 Other: Date of Last Bowel Movement 03/19/18 03/19/18 03/18/18 02:00 Catheterized Urine Urine Culture - Final No growth in 48 hours 03/17/18 19:31 Blood - Peripheral Aerobic Blood Culture - Preliminary No growth in 2 days 03/17/18 19:31 Blood - Peripheral Anaerobic Blood Culture - Preliminary No growth in 2 days 03/17/18 19:24 Blood - Peripheral Aerobic Blood Culture - Preliminary No growth in 2 days 03/17/18 19:24 Blood - Peripheral Anaerobic Blood Culture - Preliminary No growth in 2 days Lab - Hematology Results 03/19/18 03/20/18 08:44 07:01 WBC 18.0 H 14.7 H RBC 2.47 L 2.18 L Hgb 7.2 L 6.5 L* Hct 21.1 L 19.0 L* MCV 85.3 87.1 MCH 29.1 29.7 MCHC 34.2 34.1 RDW 16.1 15.8 Plt Count 411 441 MPV 8.8 8.5 Prelim Diff (Auto) Slide review pending Neut % (Auto) 80.1 H Lymph % (Auto) 9.4 [place] % (Auto) 8.4 H Eos % (Auto) 1.5 Baso % (Auto) 0.6 Neut # (Auto) 11.8 H Lymph # (Auto) 1.4 [place] # (Auto) 1.2 H Eos # (Auto) 0.2 Baso # (Auto) 0.1 WBC Differential Manual diff final Seg Neuts % (Manual) 91 H Lymphocytes % (Manual) 5 L Monocytes % (Manual) 3 Eosinophils % (Manual) 1 Abs Neuts (Manual) 13.4 H Differential Comment . Platelet Estimate Normal Platelet Morphology Normal Lab - Chemistry Results 03/19/18 03/20/18 08:44 07:01 Sodium 137 138 Potassium 3.1 L 3.3 L Chloride 100 101 Carbon Dioxide 30.7 30.1 Anion Gap 6 7 BUN 25 H 30 H Creatinine 5.66 H 6.62 H Estimated GFR 11 L 9 L Random Glucose 95 95 Calcium 7.9 L 7.7 L Imaging: ITS Impressions Nephrostomy 03/08/18 00:00 CONCLUSION: 1. Uncomplicated nephrostomy tube placement as above. CT scan will be repeated to evaluate the kidney following percutaneous drainage Abdomen/Bladder Ultrasound 03/13/18 00:00 CONCLUSION: 1. Markedly abnormal left kidney with nephrostomy tube in place. 2. Repeat noncontrast CT scan may be of benefit. Videofluoroscopic Swallow 03/14/18 15:40 CONCLUSION: Unremarkable modified swallow. See speech pathology report. Barium Swallow X-Ray 03/15/18 00:00 CONCLUSION: 1. Limited examination with no stricture or ulceration. 2. Small reducible hiatal hernia. Abdomen/Pelvis CT 03/17/18 00:00 CONCLUSION: 1. Horseshoe kidney with stable percutaneous nephrostomy catheter in the left moiety. Stable large amount of evolving hemorrhage involving the left moiety which obscures the renal anatomy. 2. Subtle increased trace ascites and reactive inflammatory change. 3. Caldwell catheter in the bladder with mild distention of the bladder despite Caldwell presence. Small amount of blood products noted in the bladder. 4. Small bilateral pleural effusions with associated bibasilar airspace consolidation. 5. Additional stable ancillary findings, as above. Catheter Placement 03/17/18 00:00 CONCLUSION: 1. Uncomplicated right IJ Vas-Cath placement as above. Physical Exam: GENERAL: awake and alert, not in respiratory distress. SKIN: Cool and dry. Pale. No generalized rash EYES: [place] conjunctiva. No petechia or hemorrhage. Pupils equal, round and reactive to light. Extraocular movements full and intact. No scleral icterus. No injection or drainage. EARS, NOSE AND THROAT: Nose without bleeding or purulent nasal discharge. No sinus tenderness. Mucous membranes pink and moist. No oral lesions noted. No exudate. No oral thrush. NECK: Trachea midline. Supple and not tender, no meningeal signs CARDIOVASCULAR: Regular rate and rhythm. No murmurs, rubs or gallops heard RESPIRATORY: Clear to auscultation. Breath sounds equal bilaterally. No rales , wheezing or rhonchi ABDOMEN: Soft, non-tender, nondistended. Bowel sounds present and normoactive. No guarding. No rebound. No organomegaly. L nephrostomy tube with bloody urine : Caldwell with bloody urine, looks less bloody EXTREMITIES: No clubbing, cyanosis. has bilateral pedal edema. No calf tenderness. NEUROLOGICAL: Non-focal. PSYCHIATRIC: Normal affect, calm and cooperative. LINE: No evidence of infection Assessment and Plan - Plan Impression Hematuria - has obstruction L kidney, with horse shoe kidnea - has nephrostomy on the left side Progressive renal failure, still nonoliguric - has been started on HD Status post treatment for UTI Episode of rigors, fever and tachy 2/8 possibly due to clots causing blockage - better Recommendation Will observe for any new evidence of infection, new S./Sxs of infection He has received about 8 days of Abx for presumed UTI when he was admitted Will not start any new Abx at this time Follow temps Monitor progress Explained plan to patient and mother D/W LISETTE
--- NOTE | 2018-03-20 15:35 | P.PNNP ---
Subjective Interval history: Seen in AM. No shortness of breath, nausea, vomiting or diarrhea. Creatinine elevated 6.62, non oliguric. <Wandy Pathak - Last Filed: 03/20/18 15:37> Physical Exam Vital signs: Vital Signs 03/19/18 15:48 03/19/18 16:00 03/19/18 16:03 Temperature 98.9 F Pulse Rate 101 H 97 H 102 H Respiratory Rate 19 21 19 Blood Pressure 140/83 140/81 Pulse Oximetry 98 97 97 03/19/18 16:18 03/19/18 16:33 03/19/18 16:48 Temperature Pulse Rate 96 H 101 H 97 H Respiratory Rate 15 19 16 Blood Pressure 139/86 151/85 H 153/81 H Pulse Oximetry 98 97 98 03/19/18 17:00 03/19/18 17:03 03/19/18 17:18 Temperature Pulse Rate 98 H 101 H 102 H Respiratory Rate 16 17 20 Blood Pressure 151/86 H 138/82 Pulse Oximetry 98 98 98 03/19/18 17:33 03/19/18 17:48 03/19/18 18:00 Temperature Pulse Rate 102 H 100 H 97 H Respiratory Rate 30 H 23 20 Blood Pressure 142/82 H 142/83 H Pulse Oximetry 97 97 97 03/19/18 18:03 03/19/18 18:18 03/19/18 18:33 Temperature Pulse Rate 98 H 104 H 108 H Respiratory Rate 24 21 19 Blood Pressure 138/82 134/79 136/78 Pulse Oximetry 97 98 97 03/19/18 18:48 03/19/18 19:00 03/19/18 19:03 Temperature 98.4 F Pulse Rate 114 H 108 H 106 H Respiratory Rate 17 21 17 Blood Pressure 132/79 137/89 Pulse Oximetry 97 98 98 03/19/18 19:18 03/19/18 19:33 03/19/18 19:48 Temperature Pulse Rate 102 H 96 H 95 H Respiratory Rate 19 30 H 30 H Blood Pressure 130/85 127/80 132/79 Pulse Oximetry 98 97 98 03/19/18 20:00 03/19/18 20:03 03/19/18 20:18 Temperature Pulse Rate 92 H 94 H 93 H Respiratory Rate 29 H 20 27 H Blood Pressure 136/79 135/79 Pulse Oximetry 98 98 98 03/19/18 20:33 02/10/19 20:48 03/19/18 21:00 Temperature Pulse Rate 92 H 96 H 98 H Respiratory Rate 20 17 18 Blood Pressure 130/83 134/85 Pulse Oximetry 97 97 97 03/19/18 21:03 03/19/18 21:18 03/19/18 21:33 Temperature Pulse Rate 100 H 96 H 104 H Respiratory Rate 20 16 26 H Blood Pressure 140/87 130/83 128/82 Pulse Oximetry 98 97 97 03/19/18 21:48 03/19/18 22:00 03/19/18 22:03 Temperature Pulse Rate 93 H 91 H 89 Respiratory Rate 17 16 19 Blood Pressure 131/80 131/82 Pulse Oximetry 97 98 97 03/19/18 22:18 03/19/18 22:33 03/19/18 22:48 Temperature Pulse Rate 91 H 89 91 H Respiratory Rate 16 18 18 Blood Pressure 130/82 133/80 131/82 Pulse Oximetry 96 97 97 03/19/18 23:00 03/19/18 23:03 03/19/18 23:18 Temperature Pulse Rate 89 91 H 89 Respiratory Rate 19 18 18 Blood Pressure 121/79 113/74 Pulse Oximetry 97 97 97 03/19/18 23:33 03/19/18 23:48 03/20/18 00:00 Temperature Pulse Rate 87 87 90 Respiratory Rate 13 20 17 Blood Pressure 122/81 128/82 Pulse Oximetry 97 97 99 03/20/18 00:03 03/20/18 00:18 03/20/18 00:33 Temperature Pulse Rate 87 92 H 89 Respiratory Rate 15 15 18 Blood Pressure 136/85 132/86 136/86 Pulse Oximetry 98 98 97 03/20/18 01:00 03/20/18 01:03 03/20/18 01:18 Temperature Pulse Rate 90 89 88 Respiratory Rate 19 15 15 Blood Pressure 130/84 133/82 Pulse Oximetry 96 98 97 03/20/18 01:33 03/20/18 01:48 03/20/18 02:00 Temperature Pulse Rate 92 H 88 88 Respiratory Rate 17 15 16 Blood Pressure 128/87 130/87 142/86 H Pulse Oximetry 97 96 97 03/20/18 02:03 03/20/18 02:18 03/20/18 02:33 Temperature Pulse Rate 89 90 88 Respiratory Rate 18 21 19 Blood Pressure 139/86 132/82 Pulse Oximetry 97 95 97 03/20/18 02:48 03/20/18 03:00 03/20/18 03:03 Temperature Pulse Rate 87 90 88 Respiratory Rate 20 16 16 Blood Pressure 134/81 140/82 Pulse Oximetry 96 96 96 03/20/18 03:18 03/20/18 03:33 03/20/18 03:48 Temperature Pulse Rate 87 90 90 Respiratory Rate 16 15 16 Blood Pressure 140/83 145/80 H 140/84 Pulse Oximetry 96 97 97 03/20/18 04:00 03/20/18 04:03 03/20/18 04:18 Temperature 98.9 F Pulse Rate 90 95 H 89 Respiratory Rate 18 17 15 Blood Pressure 146/82 H 146/82 H 144/82 H Pulse Oximetry 97 98 97 03/20/18 04:33 03/20/18 04:48 03/20/18 05:00 Temperature Pulse Rate 92 H 95 H 91 H Respiratory Rate 15 19 17 Blood Pressure 137/82 141/84 H Pulse Oximetry 97 97 97 03/20/18 05:03 03/20/18 05:18 03/20/18 05:33 Temperature Pulse Rate 91 H 87 87 Respiratory Rate 17 14 15 Blood Pressure 143/85 H 138/85 155/83 H Pulse Oximetry 97 96 96 03/20/18 05:48 03/20/18 06:00 03/20/18 06:03 Temperature Pulse Rate 86 95 H 98 H Respiratory Rate 16 17 24 Blood Pressure 151/87 H 128/85 Pulse Oximetry 96 96 96 03/20/18 06:18 03/20/18 08:00 03/20/18 08:18 Temperature 98.6 F Pulse Rate 92 H 92 H Respiratory Rate 15 16 Blood Pressure 139/86 138/86 Pulse Oximetry 97 97 97 03/20/18 08:33 03/20/18 08:48 03/20/18 09:00 Temperature Pulse Rate 92 H 101 H 90 Respiratory Rate 17 25 H 17 Blood Pressure 139/84 135/90 Pulse Oximetry 96 96 97 03/20/18 09:03 03/20/18 09:33 03/20/18 09:48 Temperature Pulse Rate 95 H 104 H 105 H Respiratory Rate 19 27 H 30 H Blood Pressure 131/86 144/98 H 139/87 Pulse Oximetry 97 03/20/18 10:00 02/11/19 10:03 03/20/18 10:18 Temperature Pulse Rate 105 H 98 H 103 H Respiratory Rate 22 15 25 H Blood Pressure 130/93 H 123/80 Pulse Oximetry 98 03/20/18 10:33 03/20/18 10:48 03/20/18 11:00 Temperature Pulse Rate 108 H 99 H 100 H Respiratory Rate 21 19 19 Blood Pressure 127/81 123/80 Pulse Oximetry 98 97 98 03/20/18 11:03 03/20/18 11:18 03/20/18 11:33 Temperature Pulse Rate 102 H 97 H 96 H Respiratory Rate 16 20 17 Blood Pressure 125/82 124/81 129/83 Pulse Oximetry 99 98 98 03/20/18 11:48 03/20/18 12:00 03/20/18 12:03 Temperature 98.8 F Pulse Rate 97 H 97 H 93 H Respiratory Rate 21 18 17 Blood Pressure 125/80 122/79 Pulse Oximetry 96 98 98 03/20/18 12:18 03/20/18 12:24 03/20/18 12:33 Temperature 98.8 F Pulse Rate 96 H 90 86 Respiratory Rate 19 21 20 Blood Pressure 118/80 118/80 122/86 Pulse Oximetry 97 98 99 03/20/18 12:48 03/20/18 13:00 03/20/18 13:03 Temperature Pulse Rate 89 86 87 Respiratory Rate 19 21 19 Blood Pressure 125/81 124/82 Pulse Oximetry 98 97 99 03/20/18 13:18 03/20/18 13:33 03/20/18 14:00 Temperature Pulse Rate 85 90 97 H Respiratory Rate 19 20 18 Blood Pressure 125/82 140/91 H Pulse Oximetry 98 98 03/20/18 14:03 03/20/18 15:18 Temperature 99.3 F Pulse Rate 89 86 Respiratory Rate 20 14 Blood Pressure 150/91 H 135/89 Pulse Oximetry Intake & Output 03/19/18 03/20/18 03/20/18 18:59 06:59 18:59 Intake Total 1750 / 1750 240 / 240 400 / 400 Output Total 400 / 400 900 / 900 Balance 1350 / 1350 -660 / -660 400 / 400 Weight 67.6 kg Intake: IV 1000 / 1000 D5W/1/2 NS Inj 1,000 ML @ 50 1000 / 1000 mls/hr IV.CONT .Q20H [facility] Rx#: [id number] Oral 750 / 750 240 / 240 Intake (Blood Product) Amt 400 / 400 Rbc As-3 Leukoreduced Unit 0 / 0 [id number] Rbc As-3 Leukoreduced Unit 400 / 400 [id number] Output: Urine Amount (Catheter) 150 / 150 150 / 150 Indwelling Urethral Catheter 150 / 150 150 / 150 Urine Amount (Stoma) 750 / 750 Nephrostomy Tube Left 750 / 750 Wound Drainage 250 / 250 Left Posterior Chest 250 / 250 Other: Date of Last Bowel Movement 03/19/18 03/19/18 03/19/18 Narrative: GENERAL: Alert and oriented. Thin SKIN: Warm and dry. NECK: Supple, trachea midline. No JVD CARDIOVASCULAR: Tachycardia. Regular rate and rhythm without murmurs, gallops, or rubs. RESPIRATORY: Breath sounds equal bilaterally. No accessory muscle use. GASTROINTESTINAL: Abdomen soft, non-tender, nondistended. +BS GI: Left nephrostomy tube and indwelling Caldwell catheter with bloody drainage. MUSCULOSKELETAL: No cyanosis, or edema. . - Urinary Catheter Management Indwelling Urethral Catheter Cath placed during this visit: yes Reason for continuing: Gross Hematuria Insertion date: 03/09/18 <Wandy Pathak - Last Filed: 03/20/18 15:37> Vital signs: Vital Signs 03/19/18 17:48 03/19/18 18:00 03/19/18 18:03 Temperature Pulse Rate 100 H 97 H 98 H Respiratory Rate 23 20 24 Blood Pressure 142/83 H 138/82 Pulse Oximetry 97 97 97 03/19/18 18:18 03/19/18 18:33 03/19/18 18:48 Temperature Pulse Rate 104 H 108 H 114 H Respiratory Rate 21 19 17 Blood Pressure 134/79 136/78 132/79 Pulse Oximetry 98 97 97 03/19/18 19:00 03/19/18 19:03 03/19/18 19:18 Temperature 98.4 F Pulse Rate 108 H 106 H 102 H Respiratory Rate 21 17 19 Blood Pressure 137/89 130/85 Pulse Oximetry 98 98 98 03/19/18 19:33 03/19/18 19:48 03/19/18 20:00 Temperature Pulse Rate 96 H 95 H 92 H Respiratory Rate 30 H 30 H 29 H Blood Pressure 127/80 132/79 Pulse Oximetry 97 98 98 03/19/18 20:03 03/19/18 20:18 03/19/18 20:33 Temperature Pulse Rate 94 H 93 H 92 H Respiratory Rate 20 27 H 20 Blood Pressure 136/79 135/79 130/83 Pulse Oximetry 98 98 97 03/19/18 20:48 03/19/18 21:00 03/19/18 21:03 Temperature Pulse Rate 96 H 98 H 100 H Respiratory Rate 17 18 20 Blood Pressure 134/85 140/87 Pulse Oximetry 97 97 98 03/19/18 21:18 03/19/18 21:33 03/19/18 21:48 Temperature Pulse Rate 96 H 104 H 93 H Respiratory Rate 16 26 H 17 Blood Pressure 130/83 128/82 131/80 Pulse Oximetry 97 97 97 03/19/18 22:00 03/19/18 22:03 03/19/18 22:18 Temperature Pulse Rate 91 H 89 91 H Respiratory Rate 16 19 16 Blood Pressure 131/82 130/82 Pulse Oximetry 98 97 96 03/19/18 22:33 03/19/18 22:48 03/19/18 23:00 Temperature Pulse Rate 89 91 H 89 Respiratory Rate 18 18 19 Blood Pressure 133/80 131/82 Pulse Oximetry 97 97 97 03/19/18 23:03 03/19/18 23:18 03/19/18 23:33 Temperature Pulse Rate 91 H 89 87 Respiratory Rate 18 18 13 Blood Pressure 121/79 113/74 122/81 Pulse Oximetry 97 97 97 03/19/18 23:48 03/20/18 00:00 03/20/18 00:03 Temperature Pulse Rate 87 90 87 Respiratory Rate 20 17 15 Blood Pressure 128/82 136/85 Pulse Oximetry 97 99 98 03/20/18 00:18 03/20/18 00:33 03/20/18 01:00 Temperature Pulse Rate 92 H 89 90 Respiratory Rate 15 18 19 Blood Pressure 132/86 136/86 Pulse Oximetry 98 97 96 03/20/18 01:03 03/20/18 01:18 03/20/18 01:33 Temperature Pulse Rate 89 88 92 H Respiratory Rate 15 15 17 Blood Pressure 130/84 133/82 128/87 Pulse Oximetry 98 97 97 03/20/18 01:48 03/20/18 02:00 03/20/18 02:03 Temperature Pulse Rate 88 88 89 Respiratory Rate 15 16 18 Blood Pressure 130/87 142/86 H Pulse Oximetry 96 97 97 03/20/18 02:18 03/20/18 02:33 03/20/18 02:48 Temperature Pulse Rate 90 88 87 Respiratory Rate 21 19 20 Blood Pressure 139/86 132/82 134/81 Pulse Oximetry 95 97 96 03/20/18 03:00 03/20/18 03:03 03/20/18 03:18 Temperature Pulse Rate 90 88 87 Respiratory Rate 16 16 16 Blood Pressure 140/82 140/83 Pulse Oximetry 96 96 96 03/20/18 03:33 03/20/18 03:48 03/20/18 04:00 Temperature 98.9 F Pulse Rate 90 90 90 Respiratory Rate 15 16 18 Blood Pressure 145/80 H 140/84 146/82 H Pulse Oximetry 97 97 97 03/20/18 04:03 03/20/18 04:18 03/20/18 04:33 Temperature Pulse Rate 95 H 89 92 H Respiratory Rate 17 15 15 Blood Pressure 146/82 H 144/82 H 137/82 Pulse Oximetry 98 97 97 03/20/18 04:48 03/20/18 05:00 03/20/18 05:03 Temperature Pulse Rate 95 H 91 H 91 H Respiratory Rate 19 17 17 Blood Pressure 141/84 H 143/85 H Pulse Oximetry 97 97 97 03/20/18 05:18 03/20/18 05:33 03/20/18 05:48 Temperature Pulse Rate 87 87 86 Respiratory Rate 14 15 16 Blood Pressure 138/85 155/83 H 151/87 H Pulse Oximetry 96 96 96 03/20/18 06:00 03/20/18 06:03 03/20/18 06:18 Temperature Pulse Rate 95 H 98 H 92 H Respiratory Rate 17 24 15 Blood Pressure 128/85 139/86 Pulse Oximetry 96 96 97 03/20/18 08:00 03/20/18 08:18 03/20/18 08:33 Temperature 98.6 F Pulse Rate 92 H 92 H Respiratory Rate 16 17 Blood Pressure 138/86 139/84 Pulse Oximetry 97 97 96 03/20/18 08:48 03/20/18 09:00 03/20/18 09:03 Temperature Pulse Rate 101 H 90 95 H Respiratory Rate 25 H 17 19 Blood Pressure 135/90 131/86 Pulse Oximetry 96 97 97 03/20/18 09:33 03/20/18 09:48 03/20/18 10:00 Temperature Pulse Rate 104 H 105 H 105 H Respiratory Rate 27 H 30 H 22 Blood Pressure 144/98 H 139/87 Pulse Oximetry 03/20/18 10:03 03/20/18 10:18 03/20/18 10:33 Temperature Pulse Rate 98 H 103 H 108 H Respiratory Rate 15 25 H 21 Blood Pressure 130/93 H 123/80 127/81 Pulse Oximetry 98 98 03/20/18 10:48 03/20/18 11:00 03/20/18 11:03 Temperature Pulse Rate 99 H 100 H 102 H Respiratory Rate 19 19 16 Blood Pressure 123/80 125/82 Pulse Oximetry 97 98 99 03/20/18 11:18 03/20/18 11:33 03/20/18 11:48 Temperature Pulse Rate 97 H 96 H 97 H Respiratory Rate 20 17 21 Blood Pressure 124/81 129/83 125/80 Pulse Oximetry 98 98 96 03/20/18 12:00 03/20/18 12:03 03/20/18 12:18 Temperature 98.8 F Pulse Rate 97 H 93 H 96 H Respiratory Rate 18 17 19 Blood Pressure 122/79 118/80 Pulse Oximetry 98 98 97 03/20/18 12:24 03/20/18 12:33 03/20/18 12:48 Temperature 98.8 F Pulse Rate 90 86 89 Respiratory Rate 21 20 19 Blood Pressure 118/80 122/86 125/81 Pulse Oximetry 98 99 98 03/20/18 13:00 03/20/18 13:03 03/20/18 13:18 Temperature Pulse Rate 86 87 85 Respiratory Rate 21 19 19 Blood Pressure 124/82 125/82 Pulse Oximetry 97 99 98 03/20/18 13:33 03/20/18 14:00 03/20/18 14:03 Temperature Pulse Rate 90 97 H 89 Respiratory Rate 20 18 20 Blood Pressure 140/91 H 150/91 H Pulse Oximetry 98 03/20/18 15:18 Temperature 99.3 F Pulse Rate 86 Respiratory Rate 14 Blood Pressure 135/89 Pulse Oximetry Intake & Output 03/19/18 03/20/18 03/20/18 18:59 06:59 18:59 Intake Total 1750 / 1750 240 / 240 400 / 400 Output Total 400 / 400 900 / 900 Balance 1350 / 1350 -660 / -660 400 / 400 Weight 67.6 kg Intake: IV 1000 / 1000 D5W/1/2 NS Inj 1,000 ML @ 50 1000 / 1000 mls/hr IV.CONT .Q20H [facility] Rx#: [id number] Oral 750 / 750 240 / 240 Intake (Blood Product) Amt 400 / 400 Rbc As-3 Leukoreduced Unit 0 / 0 [id number] Rbc As-3 Leukoreduced Unit 400 / 400 [id number] Output: Urine Amount (Catheter) 150 / 150 150 / 150 Indwelling Urethral Catheter 150 / 150 150 / 150 Urine Amount (Stoma) 750 / 750 Nephrostomy Tube Left 750 / 750 Wound Drainage 250 / 250 Left Posterior Chest 250 / 250 Other: Date of Last Bowel Movement 03/19/18 03/19/18 03/19/18 - Urinary Catheter Management Indwelling Urethral Catheter Cath placed during this visit: no <Jorge Luis Scott - Last Filed: 03/20/18 17:41> Assessment and Plan - Assessment (1) Acute kidney injury Code(s): N17.9 - Acute kidney failure, unspecified Status: Acute Plan: [place] possible ATN Urine EOS negative Repeat Renal ultrasound with known horseshoe kidney. There is no hydronephrosis on the right. There is moderate dilatation of the collecting system on the left with very poor delineation of the renal cortex. There is a 4 cm complex fluid collection around the nephrostomy. There is moderate free fluid present in the pelvis. Continue to monitor progress follow BMP He has hematuria, nephrostomy tube and indwelling. Avoid nephrotoxins including IV contrast and NSAIDS Hypokalemia, replacement given Started HD on 03/17, vas cath 03/17 Hemodialysis planned for tomorrow. (2) Hypertension Code(s): I10 - Essential (primary) hypertension Status: Acute Plan: Well controlled. Will monitor. (3) Sepsis Code(s): A41.9 - Sepsis, unspecified organism Status: Acute Plan: On antibiotics, renal dose as indicated. (4) Hydronephrosis of left kidney Code(s): N13.30 - Unspecified hydronephrosis Status: Chronic Onset Date: Unknown Plan: S/p nephrostomy tube Urology managing. (5) Anemia Code(s): D64.9 - Anemia, unspecified Status: Acute Plan: HGB at 6.5, Transfused PRBC Transfuse for HGB less than 7.0 Epogen with dialysis <Wandy Pathak - Last Filed: 03/20/18 15:37> - Assessment (1) Acute kidney injury Code(s): N17.9 - Acute kidney failure, unspecified Status: Acute Plan: Patient seen and examined, agree with above. Still has elevated Creatinine. Hgb. is low, getting transfusion. Urology to repeat CT and possible stent placement. HD will be in AM. (2) Hypertension Code(s): I10 - Essential (primary) hypertension Status: Acute (3) Sepsis Code(s): A41.9 - Sepsis, unspecified organism Status: Acute (4) Hydronephrosis of left kidney Code(s): N13.30 - Unspecified hydronephrosis Status: Chronic Onset Date: Unknown (5) Anemia Code(s): D64.9 - Anemia, unspecified Status: Acute <Jorge Luis Scott - Last Filed: 03/20/18 17:41>
--- NOTE | 2018-03-20 16:08 | CT ---
EXAM DATE: 03/20/2018 3:45 PM EST AGE/SEX: 37 years / Male INDICATIONS: Abdominal pain. CLINICAL DATA: This is the patient's initial encounter. Patient reports that signs and symptoms have been present for 4 - 6 days and indicates a pain score of 5/10. MEDICAL/SURGICAL HISTORY: Anemia. Sepsis. Hypertension. Asthma. Seizures. Horseshoe kidney. Hydronephrosis. None. RADIATION DOSE: 14.63 CTDI (mGy) COMPARISON: [facility] [place], CT ABDOMEN & PELVIS W/O CONTRAST, 03/17/2018. . TECHNIQUE: Multiple contiguous axial images were obtained through the abdomen. Images were obtained using multiple row detector helical technique. Using automated exposure control and adjustment of the mA and/or kV according to patient size, radiation dose was kept as low as reasonably achievable to o btain optimal diagnostic quality images. DICOM format image data is available electronically for rev iew and comparison. FINDINGS: Lower Lungs: Moderate size bilateral pleural effusions are slightly larger than on prior CT and there is persistent compressive atelectasis of the lower lungs. Liver: The appearance of the liver stable. Cyst in the anterior segment of the right lateral unchange d. The gallbladder is contracted without calcified stones. No definite biliary ductal dilatation. Spleen: Homogeneous density without enlargement. Pancreas: Unremarkable without mass or calcification. Kidneys: Stable appearance to the hemorrhagic enlargement of the left moiety of horseshoe kidney wit h percutaneous nephrostomy in place. The hemorrhagic enlargement is stable in size measuring 15.8 x 1 0.2 cm. There is obscuration of the anatomy of the left moiety of the horseshoe kidney. No hydronephr osis in the right moiety. Adrenal Glands: Unremarkable. Aorta: The aorta and proximal iliac vessels are grossly unremarkable without aneurysmal dilation. Bowel/Mesentery: No dilated loops of small or large bowel. Oral contrast from previous exam is prese nt in the colon down to the rectum. Persistent free fluid in the dependent pelvis similar in size and quantity. Abdominal Wall: Intact. Retroperitoneum: No evidence of adenopathy in the retrocrural, para-aortic, or deep pelvic regions. Bladder: Caldwell catheter in a mildly distended urinary bladder. Reproductive Organs: No abnormal masses or calcifications seen. Inguinal: The inguinal region is unremarkable without evidence of adenopathy. Bony Structures: Diffuse osteopenia. No acute findings.. CONCLUSION: 1. Stable appearance to the enlarged left moiety of horseshoe kidney with the evolving hemorrhage an d nephrostomy catheter in place. No significant interval change when compared to 03/17/2018. 2. Moderate free fluid in the dependent pelvis and moderate-sized bilateral pleural effusions, neela boss. Electronically signed by: Papi Hernandez MD Board Certified Radiologist 03/20/2018 4:07 PM EST
--- NOTE | 2018-03-20 21:18 | P.PNIM ---
Subjective Interval history: patient reports flank pain has somewhat improved. Denies any chest pain or shortness of breath. Physical Exam Vital signs: Vital Signs 03/19/18 21:18 03/19/18 21:33 03/19/18 21:48 Temperature Pulse Rate 96 H 104 H 93 H Respiratory Rate 16 26 H 17 Blood Pressure 130/83 128/82 131/80 Pulse Oximetry 97 97 97 03/19/18 22:00 03/19/18 22:03 03/19/18 22:18 Temperature Pulse Rate 91 H 89 91 H Respiratory Rate 16 19 16 Blood Pressure 131/82 130/82 Pulse Oximetry 98 97 96 03/19/18 22:33 03/19/18 22:48 03/19/18 23:00 Temperature Pulse Rate 89 91 H 89 Respiratory Rate 18 18 19 Blood Pressure 133/80 131/82 Pulse Oximetry 97 97 97 03/19/18 23:03 03/19/18 23:18 03/19/18 23:33 Temperature Pulse Rate 91 H 89 87 Respiratory Rate 18 18 13 Blood Pressure 121/79 113/74 122/81 Pulse Oximetry 97 97 97 03/19/18 23:48 03/20/18 00:00 03/20/18 00:03 Temperature Pulse Rate 87 90 87 Respiratory Rate 20 17 15 Blood Pressure 128/82 136/85 Pulse Oximetry 97 99 98 03/20/18 00:18 03/20/18 00:33 03/20/18 01:00 Temperature Pulse Rate 92 H 89 90 Respiratory Rate 15 18 19 Blood Pressure 132/86 136/86 Pulse Oximetry 98 97 96 03/20/18 01:03 03/20/18 01:18 03/20/18 01:33 Temperature Pulse Rate 89 88 92 H Respiratory Rate 15 15 17 Blood Pressure 130/84 133/82 128/87 Pulse Oximetry 98 97 97 03/20/18 01:48 03/20/18 02:00 03/20/18 02:03 Temperature Pulse Rate 88 88 89 Respiratory Rate 15 16 18 Blood Pressure 130/87 142/86 H Pulse Oximetry 96 97 97 03/20/18 02:18 03/20/18 02:33 03/20/18 02:48 Temperature Pulse Rate 90 88 87 Respiratory Rate 21 19 20 Blood Pressure 139/86 132/82 134/81 Pulse Oximetry 95 97 96 03/20/18 03:00 03/20/18 03:03 03/20/18 03:18 Temperature Pulse Rate 90 88 87 Respiratory Rate 16 16 16 Blood Pressure 140/82 140/83 Pulse Oximetry 96 96 96 03/20/18 03:33 03/20/18 03:48 03/20/18 04:00 Temperature 98.9 F Pulse Rate 90 90 90 Respiratory Rate 15 16 18 Blood Pressure 145/80 H 140/84 146/82 H Pulse Oximetry 97 97 97 03/20/18 04:03 03/20/18 04:18 03/20/18 04:33 Temperature Pulse Rate 95 H 89 92 H Respiratory Rate 17 15 15 Blood Pressure 146/82 H 144/82 H 137/82 Pulse Oximetry 98 97 97 03/20/18 04:48 03/20/18 05:00 03/20/18 05:03 Temperature Pulse Rate 95 H 91 H 91 H Respiratory Rate 19 17 17 Blood Pressure 141/84 H 143/85 H Pulse Oximetry 97 97 97 03/20/18 05:18 03/20/18 05:33 03/20/18 05:48 Temperature Pulse Rate 87 87 86 Respiratory Rate 14 15 16 Blood Pressure 138/85 155/83 H 151/87 H Pulse Oximetry 96 96 96 03/20/18 06:00 03/20/18 06:03 03/20/18 06:18 Temperature Pulse Rate 95 H 98 H 92 H Respiratory Rate 17 24 15 Blood Pressure 128/85 139/86 Pulse Oximetry 96 96 97 03/20/18 08:00 03/20/18 08:18 03/20/18 08:33 Temperature 98.6 F Pulse Rate 92 H 92 H Respiratory Rate 16 17 Blood Pressure 138/86 139/84 Pulse Oximetry 97 97 96 03/20/18 08:48 03/20/18 09:00 03/20/18 09:03 Temperature Pulse Rate 101 H 90 95 H Respiratory Rate 25 H 17 19 Blood Pressure 135/90 131/86 Pulse Oximetry 96 97 97 03/20/18 09:33 03/20/18 09:48 03/20/18 10:00 Temperature Pulse Rate 104 H 105 H 105 H Respiratory Rate 27 H 30 H 22 Blood Pressure 144/98 H 139/87 Pulse Oximetry 03/20/18 10:03 03/20/18 10:18 03/20/18 10:33 Temperature Pulse Rate 98 H 103 H 108 H Respiratory Rate 15 25 H 21 Blood Pressure 130/93 H 123/80 127/81 Pulse Oximetry 98 98 03/20/18 10:48 03/20/18 11:00 03/20/18 11:03 Temperature Pulse Rate 99 H 100 H 102 H Respiratory Rate 19 19 16 Blood Pressure 123/80 125/82 Pulse Oximetry 97 98 99 03/20/18 11:18 03/20/18 11:33 03/20/18 11:48 Temperature Pulse Rate 97 H 96 H 97 H Respiratory Rate 20 17 21 Blood Pressure 124/81 129/83 125/80 Pulse Oximetry 98 98 96 03/20/18 12:00 03/20/18 12:03 03/20/18 12:18 Temperature 98.8 F Pulse Rate 97 H 93 H 96 H Respiratory Rate 18 17 19 Blood Pressure 122/79 118/80 Pulse Oximetry 98 98 97 03/20/18 12:24 03/20/18 12:33 03/20/18 12:48 Temperature 98.8 F Pulse Rate 90 86 89 Respiratory Rate 21 20 19 Blood Pressure 118/80 122/86 125/81 Pulse Oximetry 98 99 98 03/20/18 13:00 03/20/18 13:03 03/20/18 13:18 Temperature Pulse Rate 86 87 85 Respiratory Rate 21 19 19 Blood Pressure 124/82 125/82 Pulse Oximetry 97 99 98 03/20/18 13:33 03/20/18 14:00 03/20/18 14:03 Temperature Pulse Rate 90 97 H 89 Respiratory Rate 20 18 20 Blood Pressure 140/91 H 150/91 H Pulse Oximetry 98 03/20/18 14:18 03/20/18 14:33 03/20/18 14:48 Temperature Pulse Rate 100 H 88 89 Respiratory Rate 25 H 24 21 Blood Pressure 142/89 H 141/89 H 137/90 Pulse Oximetry 99 100 03/20/18 15:00 03/20/18 15:03 03/20/18 15:18 Temperature 99.3 F Pulse Rate 89 88 87 Respiratory Rate 18 18 20 Blood Pressure 133/88 135/89 Pulse Oximetry 99 98 99 03/20/18 15:33 03/20/18 15:48 03/20/18 16:00 Temperature 99.3 F Pulse Rate 90 83 84 Respiratory Rate 22 19 22 Blood Pressure 139/94 H 149/95 H Pulse Oximetry 99 98 97 03/20/18 16:03 03/20/18 16:18 03/20/18 16:33 Temperature Pulse Rate 86 82 85 Respiratory Rate 19 18 21 Blood Pressure 137/88 140/90 132/92 H Pulse Oximetry 97 98 97 03/20/18 16:48 03/20/18 17:00 03/20/18 17:03 Temperature Pulse Rate 81 83 76 Respiratory Rate 18 19 19 Blood Pressure 136/96 H 141/91 H Pulse Oximetry 98 98 98 03/20/18 17:18 03/20/18 17:33 03/20/18 17:48 Temperature Pulse Rate 82 82 84 Respiratory Rate 20 19 18 Blood Pressure 150/95 H 141/91 H 146/95 H Pulse Oximetry 99 97 97 03/20/18 18:00 Temperature Pulse Rate 84 Respiratory Rate 15 Blood Pressure Pulse Oximetry 97 Intake & Output 03/20/18 03/20/18 03/21/18 06:59 18:59 06:59 Intake Total 240 / 240 1300 / 1300 Output Total 900 / 900 1100 / 1100 Balance -660 / -660 200 / 200 Weight 67.6 kg Intake: Oral 240 / 240 500 / 500 Intake (Blood Product) Amt 800 / 800 Rbc As-3 Leukoreduced Unit 400 / 400 [id number] Rbc As-3 Leukoreduced Unit 400 / 400 [id number] Output: Urine Amount (Catheter) 150 / 150 200 / 200 Indwelling Urethral Catheter 150 / 150 200 / 200 Urine Amount (Stoma) 750 / 750 Nephrostomy Tube Left 750 / 750 Wound Drainage 900 / 900 Left Posterior Chest 900 / 900 Other: Date of Last Bowel Movement 03/19/18 03/19/18 Narrative: GENERAL: Patient sitting up in bed. Appears uncomfortable.alert and oriented 3. CARDIOVASCULAR: Regular rate and rhythm without murmurs, gallops, or rubs. RESPIRATORY: Breath sounds equal bilaterally. No accessory muscle use. GASTROINTESTINAL: Abdomen soft, non-tender, nondistended. Left flank with percutaneous nephrostomy tube in place. Urine with hematuria, no clots. MUSCULOSKELETAL: No cyanosis, or edema. BACK: Nontender without obvious deformity. No CVA tenderness. Urinary Catheter Management Indwelling Urethral Catheter: Cath placed during this visit: yes Reason for continuing: Gross Hematuria Insertion date: 03/09/18 Results Labs CBC & Chem 7: 03/20/18 07:01 03/20/18 07:01 Labs: Microbiology 03/17/18 19:31 Blood - Peripheral Aerobic Blood Culture - Preliminary No growth in 3 days 03/17/18 19:31 Blood - Peripheral Anaerobic Blood Culture - Preliminary No growth in 3 days 03/17/18 19:24 Blood - Peripheral Aerobic Blood Culture - Preliminary No growth in 3 days 03/17/18 19:24 Blood - Peripheral Anaerobic Blood Culture - Preliminary No growth in 3 days 03/18/18 02:00 Catheterized Urine Urine Culture - Final No growth in 48 hours Imaging Imaging: Impressions Abdomen/Pelvis CT 03/20/18 00:00 CONCLUSION: 1. Stable appearance to the enlarged left moiety of horseshoe kidney with the evolving hemorrhage and nephrostomy catheter in place. No significant interval change when compared to 03/17/2018. 2. Moderate free fluid in the dependent pelvis and moderate-sized bilateral pleural effusions, stable. 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 He was admitted and seen by urology who arranged for percutaneous nephrostomy tube by IR on 03/08. Subsequently, patient continued to have gross hematuria require transfusion 2 units on 03/08 first and then again 2 units on March 11. Patient also developed acute renal failure and symptoms of dysphagia Septic shock due to pyelonephritis status post 8 days of Zosyn, now discontinued last vancomycin dose was / and stopped due to acute renal failure blood cultures negative urine culture negative, currently off of antibiotics. Remains afebrile. Appreciate infectious disease consult = Monitor for signs of infection. Off antibiotics. Severe hydronephrosis with UPJ obstruction with left horseshoe kidney status post percutaneous nephrostomy tube placement by IR on 03/08. Subsequent pain in left flank, CT shows localized hemorrhage and inflammation Continue management per urology = Repeat CT today with no change. So with hemorrhage. Urology may plan for cystoscopy. Appreciate assistance. Acute renal failure likely due to acute tubular necrosis Etiology is possibly due to vancomycin, sepsis and previous obstruction Creatinine worsened following localized hemorrhage, patient placed on dialysis Avoid nephrotoxic agents such as NSAIDs and contrast Patient still has urine output, consider holding Lasix since we have dialysis to remove extra fluid BMP today shows creatinine slightly worse Continue IV fluids as recommended by nephrology Appreciate nephrology consult and management Anemia due to acute blood loss status post 4 units of total transfusion Hemoglobin is stable in the 9.6 range continue to monitor CBC and transfuse as needed. = 03/20. Hemoglobin 6.5 from 7.2 yesterday. Transfuse 2 units and monitor. Severe protein calorie malnutrition with albumin 2.0 continue mighty shakes supplements, dietitian consultation Tolerating solid food. Nephro supplement. Dysphagia normals barium swallow EGD showed showed esophageal stricture status post dilation EGD biopsy pending Tolerating solid food Gastroenterology has signed off Hypertension controlled, much of it may be due to pain continue hydralazine, metoprolol Bilateral pleural effusion with bibasilar atelectasis encourage incentive spirometry use Extra fluid removed with dialysis -Likely secondary to fluid overload. Lasix on hold due to worsening of renal impairment h/o Asthma no acute exacerbation nebs as needed DVT prophylaxis SCDs, chemoprophylaxis contraindicated due to acute hemorrhage Discharge Planning: PT recommends rehab. Transfer to floor Progress Note: Quality VTE Deep Vein Thrombosis/Pulmonary Embolism Present on Admission: No _ (1) Hypertension Qualifiers: Hypertension type: (2) Sepsis Qualifiers: Sepsis type: (3) Anemia Qualifiers: Anemia type: Iron deficiency anemia type: Vitamin B12 deficiency anemia type: Folate deficiency anemia type: Bone marrow failure anemia type: Hemolytic anemia type: Other causes of anemia: Chronic kidney disease stage :
[2018-03-20] MEDS: Dextrose 5%/NaCl 0.45% Inj 1,000 ML IV.CONT SCH (21:40)
[2018-03-21 05:55] LABS: Baso # (Auto) 0.1 th/mm3 (0.0-0.2); Baso % (Auto) 0.7 % (0.0-2.0); Eos # (Auto) 0.2 th/mm3 (0.0-0.4); Eos % (Auto) 1.8 % (0.0-4.0); Hematocrit 26.5 % (39.0-51.0); Hemoglobin 9.1 gm/dL (13.0-17.0); Lymph # (Auto) 1.7 th/mm3 (1.0-4.8); Lymph % (Auto) 12.8 % (9.0-44.0); Mean Corpuscular HGB Conc 34.2 % (32.0-36.0); Mean Corpuscular Hemoglobin 29.6 pg (27.0-34.0); Mean Corpuscular Volume 86.4 fL (80.0-100.0); Mean Platelet Volume 8.3 fL (7.0-11.0); Mono # (Auto) 1.2 th/mm3 (0.0-0.9); Mono % (Auto) 8.9 % (0.0-8.0); Neut # (Auto) 9.8 th/mm3 (1.8-7.7); Neut % (Auto) 75.8 % (16.0-70.0); Platelet Count 459 th/mm3 (150-450); Red Blood Count 3.07 mil/mm3 (4.50-5.90); Red Cell Distribution Width 15.7 % (11.6-17.2); White Blood Count 12.9 th/mm3 (4.0-11.0)
[2018-03-21 06:03] LABS: INR 1.1 Ratio; Prothrombin Time 11.1 sec (9.8-11.6)
[2018-03-21 06:22] LABS: Albumin 2.4 g/dL (3.4-5.0); Carbon Dioxide 29.8 meq/L (21.0-32.0); Magnesium 1.9 mg/dL (1.5-2.5); Phosphorus 4.1 mg/dL (2.5-4.9); Potassium 3.9 meq/L (3.5-5.1)
[2018-03-21] MEDS: Senna/Docusate Sodium 8.6/50 MG Tablet PO SCH ×3 (07:42→21:08)
[2018-03-21] MEDS: Metoprolol Tartrate 25 MG Tablet PO SCH ×2 (09:00→21:07)
[2018-03-21] MEDS ORDERED: Neostigmine Inj 5 MG/5 ML Syringe IV.PUSH ONE (09:08)
[2018-03-21] MEDS ORDERED: Lidocaine PF 1% Inj 5 ML Syringe OTHER ONE (09:08)
[2018-03-21] MEDS ORDERED: Glycopyrrolate Inj 1 MG/5 ML Syringe IV.PUSH ONE (09:08)
[2018-03-21] MEDS ORDERED: Iohexol Inj 350 MG/ML 100 ML Bottle (for RAD Diag) IVCONTRAST ONE (09:55)
--- NOTE | 2018-03-21 10:11 | P.OP ---
- Preoperative Diagnosis (1) Gross hematuria (2) Horseshoe kidney (3) Acute kidney injury - Postoperative Diagnosis (1) Horseshoe kidney (2) Acute kidney injury (3) Gross hematuria Date of procedure: 03/21/18 Procedure: Cystoscopy with clot retention with bilateral retrograde studies, right ureteral dilatation, bilateral double-J stent insertion. Anesthesia: other (general LMA) Surgeon: Burak Turpin DO Estimated blood loss (mL): 5 Pathology: none sent Operation and Findings: 37-year-old male presented with a history of a horseshoe kidney and acute renal failure who underwent percutaneous nephrostomy tube. Patient has had ongoing gross hematuria and worsening renal function. CT scan showed a large hemorrhage within the horseshoe kidney after percutaneous tube placement. Decision made to bring the patient to the operating room to undergo cystoscopy with clot evacuation with bilateral retrograde pyelograms and possible bilateral double-J stent insertion. This was to provide better drainage for the kidney due to the clot sitting in the collecting system. Risk and benefits were discussed preoperatively with the patient and his mother at the bedside and they were willing to proceed. Patient brought the operating room identified by myself as Khoa Quinonez. He was placed in the dorsolithotomy position, prepped draped you sterile fashion, received preprocedure antibiotics and general LMA anesthesia was administered. 22 [place] cystoscope was inserted in the bladder and there was some clot noted. This was evacuated. A 5 [place] opening catheter was inserted into the distal left ureteral orifice and retrograde pyelogram was performed. Radiographic findings: Left retrograde pyelogram demonstrated normal contour of the left ureter with obscured left renal collecting system. A 0.35 sensor wire was then passed into the left collecting system portion of the horseshoe kidney and a 6 [place] 24 cm left double-J stent was passed over the wire and into the kidney. Blood was noted to drain from the end of the stent after placement. Then a 5 [place] ureteral catheter was inserted into the right ureteral orifice with some difficulty and retrograde pyelogram was performed. Radiographic findings: Right retrograde pyelogram demonstrated a nondilated collecting system with normal ureter noted. Attempt was then made to pass a 6 [place] 22 cm stent over the wire but this would not pass up into the ureter easily. Microvasive ureteral dilator was then used to dilate the lower ureter. Then a 4.8 22 cm stent was passed over the wire without difficulty with a good curl in the kidney and the bladder. The stent was placed in good position at this time. A 22 [place] three-way [place] catheter was inserted into the bladder and continuous bladder irrigation was started. The patient was awoken and extubated transferred recovery in stable condition. He tolerated the procedure well.
[2018-03-21] MEDS ORDERED: *HYDROmorphone PF Inj 1 MG/ML Ampul PERIprocedural Use ONLY ONE (10:25)
[2018-03-21] MEDS ORDERED: Morphine Inj 4 MG/ML Vial ONE (10:29)
[2018-03-21] MEDS ORDERED: fentaNYL Citrate Inj 100 MCG/2 ML Ampul ONE (10:29)
[2018-03-21] MEDS: Belladonna Alkaloid/Opium 60 MG Supp RECTAL PRN (10:40)
[2018-03-21] MEDS: HYDROmorphone PF Inj 0.5 MG/0.5 ML Syringe IV.PUSH PRN (11:20)
--- NOTE | 2018-03-21 13:38 | P.PNID ---
Subjective Remarks: Patient is a 37-year-old male, initially presented at [facility] for evaluation of abdominal pain on the left side. He also had some nausea, as well as some hematuria. Evaluation revealed hydronephrosis on the left side. Patient was transferred to [facility] for further management. Patient had an elevated WBC and creatinine. 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 Patient underwent placement of a nephrostomy tube on the left side. Patient has had problem with significant hematuria, and has required PRBC transfusion. He had one low-grade temperature since admission. He was put on antibiotics for UTI, and was on Zosyn from March 08 - March 15. Patient's creatinine continued to increase although he has good urine output from the nephrostomy, and lower output in his Caldwell catheter. His creatinine has gone up to 8. Vas-Cath was placed today and hemodialysis is planned. Patient currently is complaining of pain in the right neck where he has the Vas-Cath. He has mild pain over the left nephrostomy. He continues to have significant hematuria. He has been afebrile. He has had a few loose stools today. His last urinalysis was from March 13 with some mild pyuria and the culture is negative. Patient has been off antibiotics since March 15. Infectious disease consultation has been requested to evaluate the patient for possible persistent infection. Notes reviewed No fever Had urologic procedure this morning Still a little groggy Has some mild pain Getting HD Repeat BC ok UC negative Antibiotics: NOne Past Medical History: Asthma Seizures Hx of tympanostomy tubes Pneumothorax Allergies/Adverse Reactions: Allergies meperidine [From Demerol] Allergy (Verified 03/09/18 04:22) Hives Objective Vital Signs 03/20/18 14:00 03/20/18 14:03 03/20/18 14:18 Temperature Pulse Rate 97 H 89 100 H Respiratory Rate 18 20 25 H Blood Pressure 150/91 H 142/89 H Pulse Oximetry 03/20/18 14:33 03/20/18 14:48 03/20/18 15:00 Temperature Pulse Rate 88 89 89 Respiratory Rate 24 21 18 Blood Pressure 141/89 H 137/90 Pulse Oximetry 99 100 99 03/20/18 15:03 03/20/18 15:18 03/20/18 15:33 Temperature 99.3 F Pulse Rate 88 87 90 Respiratory Rate 18 20 22 Blood Pressure 133/88 135/89 139/94 H Pulse Oximetry 98 99 99 03/20/18 15:48 03/20/18 16:00 03/20/18 16:03 Temperature 99.3 F Pulse Rate 83 84 86 Respiratory Rate 19 22 19 Blood Pressure 149/95 H 137/88 Pulse Oximetry 98 97 97 03/20/18 16:18 03/20/18 16:33 03/20/18 16:48 Temperature Pulse Rate 82 85 81 Respiratory Rate 18 21 18 Blood Pressure 140/90 132/92 H 136/96 H Pulse Oximetry 98 97 98 03/20/18 17:00 03/20/18 17:03 03/20/18 17:18 Temperature Pulse Rate 83 76 82 Respiratory Rate 19 19 20 Blood Pressure 141/91 H 150/95 H Pulse Oximetry 98 98 99 03/20/18 17:33 03/20/18 17:48 03/20/18 18:00 Temperature Pulse Rate 82 84 84 Respiratory Rate 19 18 15 Blood Pressure 141/91 H 146/95 H Pulse Oximetry 97 97 97 03/20/18 18:03 03/20/18 18:18 03/20/18 18:33 Temperature Pulse Rate 83 82 90 Respiratory Rate 15 19 16 Blood Pressure 143/94 H 158/96 H 150/95 H Pulse Oximetry 96 97 98 03/20/18 18:48 03/20/18 19:00 03/20/18 19:03 Temperature Pulse Rate 86 88 94 H Respiratory Rate 22 21 20 Blood Pressure 152/98 H 142/87 H Pulse Oximetry 97 96 95 03/20/18 19:18 03/20/18 19:33 03/20/18 19:48 Temperature Pulse Rate 104 H 82 87 Respiratory Rate 25 H 18 18 Blood Pressure 148/88 H 147/90 H 140/90 Pulse Oximetry 95 97 96 03/20/18 20:00 03/20/18 20:03 03/20/18 20:18 Temperature 99.6 F Pulse Rate 91 H 85 86 Respiratory Rate 21 22 19 Blood Pressure 150/95 H 158/93 H Pulse Oximetry 97 98 97 03/20/18 20:33 03/20/18 20:48 03/20/18 21:00 Temperature Pulse Rate 90 90 94 H Respiratory Rate 20 19 20 Blood Pressure 151/85 H 149/90 H Pulse Oximetry 96 97 96 0211/19 21:03 03/20/18 21:18 03/20/18 21:33 Temperature Pulse Rate 87 84 85 Respiratory Rate 20 15 19 Blood Pressure 143/94 H 155/97 H 149/96 H Pulse Oximetry 97 97 97 03/20/18 21:48 03/20/18 22:00 03/20/18 22:03 Temperature Pulse Rate 98 H 83 84 Respiratory Rate 21 21 22 Blood Pressure 164/106 H 163/103 H Pulse Oximetry 99 97 97 03/20/18 22:18 03/20/18 22:33 03/20/18 22:48 Temperature Pulse Rate 93 H 93 H 88 Respiratory Rate 19 22 17 Blood Pressure 149/96 H 144/94 H 147/100 H Pulse Oximetry 97 96 96 03/20/18 23:48 03/21/18 00:00 03/21/18 00:03 Temperature 99.4 F Pulse Rate 79 78 77 Respiratory Rate 20 15 13 Blood Pressure 131/92 H 141/82 H Pulse Oximetry 96 96 96 03/21/18 00:18 03/21/18 00:33 03/21/18 00:48 Temperature Pulse Rate 74 82 80 Respiratory Rate 20 19 18 Blood Pressure 142/94 H 138/91 H 137/90 Pulse Oximetry 96 96 96 03/21/18 01:00 03/21/18 01:03 03/21/18 01:18 Temperature Pulse Rate 73 76 80 Respiratory Rate 19 20 21 Blood Pressure 128/85 134/91 H Pulse Oximetry 97 96 96 03/21/18 01:33 03/21/18 01:48 03/21/18 02:00 Temperature Pulse Rate 76 73 72 Respiratory Rate 22 14 16 Blood Pressure 142/92 H 130/90 Pulse Oximetry 96 97 96 03/21/18 02:03 03/21/18 02:18 03/21/18 02:33 Temperature Pulse Rate 72 74 71 Respiratory Rate 14 17 17 Blood Pressure 127/87 131/87 126/87 Pulse Oximetry 95 95 96 03/21/18 02:48 03/21/18 03:00 03/21/18 03:03 Temperature Pulse Rate 73 73 74 Respiratory Rate 20 16 15 Blood Pressure 131/92 H 145/92 H Pulse Oximetry 96 96 96 03/21/18 03:18 03/21/18 03:33 03/21/18 03:48 Temperature Pulse Rate 81 77 75 Respiratory Rate 23 18 21 Blood Pressure 138/87 144/88 H 132/86 Pulse Oximetry 95 97 96 03/21/18 04:00 03/21/18 04:03 03/21/18 04:18 Temperature 99.3 F Pulse Rate 69 69 67 Respiratory Rate 15 14 16 Blood Pressure 128/89 131/89 Pulse Oximetry 96 96 96 03/21/18 04:33 03/21/18 04:48 03/21/18 05:00 Temperature Pulse Rate 70 68 71 Respiratory Rate 19 22 15 Blood Pressure 128/90 128/92 H Pulse Oximetry 97 97 97 03/21/18 05:03 03/21/18 05:18 03/21/18 05:48 Temperature Pulse Rate 68 75 84 Respiratory Rate 17 16 23 Blood Pressure 149/88 H 132/85 123/94 H Pulse Oximetry 95 98 03/21/18 06:00 03/21/18 06:03 03/21/18 06:18 Temperature Pulse Rate 71 73 72 Respiratory Rate 20 20 17 Blood Pressure 152/86 H 135/91 H Pulse Oximetry 03/21/18 06:33 03/21/18 06:48 03/21/18 07:00 Temperature Pulse Rate 78 76 73 Respiratory Rate 21 20 16 Blood Pressure 147/92 H 136/82 Pulse Oximetry 03/21/18 07:03 03/21/18 07:18 03/21/18 08:00 Temperature 98.6 F Pulse Rate 73 72 76 Respiratory Rate 21 18 19 Blood Pressure 140/87 133/84 137/88 Pulse Oximetry 03/21/18 10:45 03/21/18 11:21 03/21/18 12:00 Temperature 98.1 F Pulse Rate 103 H 86 90 Respiratory Rate 17 21 13 Blood Pressure 154/93 H 170/93 H 153/84 H Pulse Oximetry 100 100 99 Intake & Output 03/20/18 03/21/18 03/21/18 18:59 06:59 18:59 Intake Total 2300 / 2300 320 / 320 250 / 250 Output Total 1100 / 1100 1400 / 1400 Balance 1200 / 1200 -1080 / -1080 249 / 249 Weight 66.7 kg Intake: IV 1000 / 1000 D5W/1/2 NS Inj 1,000 ML @ 50 1000 / 1000 mls/hr IV.CONT .Q20H [facility] Rx#: [id number] Oral 500 / 500 320 / 320 Anesthesia Amount 250 / 250 Intake (Blood Product) Amt 800 / 800 Rbc As-3 Leukoreduced Unit 400 / 400 [id number] Rbc As-3 Leukoreduced Unit 400 / 400 [id number] Output: Estimated Blood Loss Urine Amount (Catheter) 200 / 200 300 / 300 Indwelling Urethral Catheter 200 / 200 300 / 300 Urine Amount (Stoma) 1100 / 1100 Nephrostomy Tube Left 1100 / 1100 Wound Drainage 900 / 900 Left Posterior Chest 900 / 900 Other: Bladder Irrigation Fluid - Amount Instilled 3-way Urethral 900 Bladder Irrigation Fluid - Amount Drained 3-way Urethral 1,100 Date of Last Bowel Movement 03/19/18 03/21/18 03/21/18 # Bowel Movements 1 03/17/18 19:31 Blood - Peripheral Aerobic Blood Culture - Preliminary No growth in 4 days 03/17/18 19:31 Blood - Peripheral Anaerobic Blood Culture - Preliminary No growth in 4 days 03/17/18 19:24 Blood - Peripheral Aerobic Blood Culture - Preliminary No growth in 4 days 03/17/18 19:24 Blood - Peripheral Anaerobic Blood Culture - Preliminary No growth in 4 days 03/18/18 02:00 Catheterized Urine Urine Culture - Final No growth in 48 hours Lab - Hematology Results 03/20/18 03/21/18 07:01 05:30 WBC 14.7 H 12.9 H RBC 2.18 L 3.07 L Hgb 6.5 L* 9.1 L D Hct 19.0 L* 26.5 L MCV 87.1 86.4 MCH 29.7 29.6 MCHC 34.1 34.2 RDW 15.8 15.7 Plt Count 441 459 H MPV 8.5 8.3 Prelim Diff (Auto) Slide review pending Neut % (Auto) 80.1 H 75.8 H Lymph % (Auto) 9.4 12.8 [place]les % (Auto) 8.4 H 8.9 H Eos % (Auto) 1.5 1.8 Baso % (Auto) 0.6 0.7 Neut # (Auto) 11.8 H 9.8 H Lymph # (Auto) 1.4 1.7 [place]les # (Auto) 1.2 H 1.2 H Eos # (Auto) 0.2 0.2 Baso # (Auto) 0.1 0.1 WBC Differential Manual diff final . Seg Neuts % (Manual) 91 H Lymphocytes % (Manual) 5 L Monocytes % (Manual) 3 Eosinophils % (Manual) 1 Abs Neuts (Manual) 13.4 H Differential Comment . Auto diff final Platelet Estimate Normal Platelet Morphology Normal Lab - Chemistry Results 03/20/18 03/21/18 07:01 05:30 Sodium 138 140 Potassium 3.3 L 3.9 Chloride 101 103 Carbon Dioxide 30.1 29.8 Anion Gap 7 7 BUN 30 H 39 H Creatinine 6.62 H 7.34 H Estimated GFR 9 L 8 L Random Glucose 95 92 Calcium 7.7 L 8.0 L Phosphorus 4.1 Magnesium 1.9 Albumin 2.4 L Imaging: ITS Impressions Nephrostomy 03/08/18 00:00 CONCLUSION: 1. Uncomplicated nephrostomy tube placement as above. CT scan will be repeated to evaluate the kidney following percutaneous drainage Abdomen/Bladder Ultrasound 03/13/18 00:00 CONCLUSION: 1. Markedly abnormal left kidney with nephrostomy tube in place. 2. Repeat noncontrast CT scan may be of benefit. Videofluoroscopic Swallow 03/14/18 15:40 CONCLUSION: Unremarkable modified swallow. See speech pathology report. Barium Swallow X-Ray 03/15/18 00:00 CONCLUSION: 1. Limited examination with no stricture or ulceration. 2. Small reducible hiatal hernia. Catheter Placement 03/17/18 00:00 CONCLUSION: 1. Uncomplicated right IJ Vas-Cath placement as above. Abdomen/Pelvis CT 03/20/18 00:00 CONCLUSION: 1. Stable appearance to the enlarged left moiety of horseshoe kidney with the evolving hemorrhage and nephrostomy catheter in place. No significant interval change when compared to 03/17/2018. 2. Moderate free fluid in the dependent pelvis and moderate-sized bilateral pleural effusions, stable. Physical Exam: GENERAL: awake and alert, not in respiratory distress. SKIN: Cool and dry. Pale. No generalized rash EYES: [place] conjunctiva. No petechia or hemorrhage. Pupils equal, round and reactive to light. Extraocular movements full and intact. No scleral icterus. No injection or drainage. EARS, NOSE AND THROAT: Nose without bleeding or purulent nasal discharge. No sinus tenderness. Mucous membranes pink and moist. No oral lesions noted. No exudate. No oral thrush. NECK: Trachea midline. Supple and not tender, no meningeal signs CARDIOVASCULAR: Regular rate and rhythm. No murmurs, rubs or gallops heard RESPIRATORY: Clear to auscultation. Breath sounds equal bilaterally. No rales , wheezing or rhonchi ABDOMEN: Soft, non-tender, nondistended. Bowel sounds present and normoactive. No guarding. No rebound. No organomegaly. L nephrostomy tube with bloody urine : Caldwell with bloody urine, looks less bloody EXTREMITIES: No clubbing, cyanosis. has bilateral pedal edema. No calf tenderness. NEUROLOGICAL: Non-focal. PSYCHIATRIC: Normal affect, calm and cooperative. LINE: No evidence of infection Assessment and Plan - Plan Impression Hematuria - has obstruction L kidney, with horse shoe kidnea - has nephrostomy on the left side - s/p cysto, has bilateral stents Hematuria Progressive renal failure, still nonoliguric - has been started on HD Status post treatment for UTI Episode of rigors, fever and tachy 2/8 possibly due to clots causing blockage - better Recommendation Send new urine and C/S post procedure Not on any Abx currently Follow new urine studies Follow temps Monitor progress
[2018-03-21 14:40] LABS: Bacteria,Urine Many /hpf
[2018-03-21 14:52] LABS: Clarity,Urine Cloudy (Clear); Glucose,Urine (UA) 100 mg/dL (Negative); Leukocyte Esterase,Urine Large (Negative); Nitrite,Urine Negative (Negative)
[2018-03-21 14:54] LABS: Bilirubin,Urine Negative (Negative); Ictotest,Urine Negative (Negative)
[2018-03-21 14:55] LABS: Color,Urine Red (Yellw/Straw); Specific Gravity,Urine 1.015 (1.002-1.035)
--- NOTE | 2018-03-21 15:08 | P.PNNP ---
Subjective Interval history: Seen in AM. Plan for hemodialysis today after cystoscopy. No shortness of breath, nausea, or vomiting. <Wandy Pathak - Last Filed: 03/21/18 15:00> Physical Exam Vital signs: Vital Signs 03/20/18 15:03 03/20/18 15:18 03/20/18 15:33 Temperature 99.3 F Pulse Rate 88 87 90 Respiratory Rate 18 20 22 Blood Pressure 133/88 135/89 139/94 H Pulse Oximetry 98 99 99 03/20/18 15:48 03/20/18 16:00 03/20/18 16:03 Temperature 99.3 F Pulse Rate 83 84 86 Respiratory Rate 19 22 19 Blood Pressure 149/95 H 137/88 Pulse Oximetry 98 97 97 03/20/18 16:18 03/20/18 16:33 03/20/18 16:48 Temperature Pulse Rate 82 85 81 Respiratory Rate 18 21 18 Blood Pressure 140/90 132/92 H 136/96 H Pulse Oximetry 98 97 98 03/20/18 17:00 03/20/18 17:03 03/20/18 17:18 Temperature Pulse Rate 83 76 82 Respiratory Rate 19 19 20 Blood Pressure 141/91 H 150/95 H Pulse Oximetry 98 98 99 03/20/18 17:33 03/20/18 17:48 03/20/18 18:00 Temperature Pulse Rate 82 84 84 Respiratory Rate 19 18 15 Blood Pressure 141/91 H 146/95 H Pulse Oximetry 97 97 97 03/20/18 18:03 03/20/18 18:18 03/20/18 18:33 Temperature Pulse Rate 83 82 90 Respiratory Rate 15 19 16 Blood Pressure 143/94 H 158/96 H 150/95 H Pulse Oximetry 96 97 98 03/20/18 18:48 03/20/18 19:00 03/20/18 19:03 Temperature Pulse Rate 86 88 94 H Respiratory Rate 22 21 20 Blood Pressure 152/98 H 142/87 H Pulse Oximetry 97 96 95 03/20/18 19:18 03/20/18 19:33 03/20/18 19:48 Temperature Pulse Rate 104 H 82 87 Respiratory Rate 25 H 18 18 Blood Pressure 148/88 H 147/90 H 140/90 Pulse Oximetry 95 97 96 03/20/18 20:00 03/20/18 20:03 03/20/18 20:18 Temperature 99.6 F Pulse Rate 91 H 85 86 Respiratory Rate 21 22 19 Blood Pressure 150/95 H 158/93 H Pulse Oximetry 97 98 97 03/20/18 20:33 03/20/18 20:48 03/20/18 21:00 Temperature Pulse Rate 90 90 94 H Respiratory Rate 20 19 20 Blood Pressure 151/85 H 149/90 H Pulse Oximetry 96 97 96 03/20/18 21:03 03/20/18 21:18 03/20/18 21:33 Temperature Pulse Rate 87 84 85 Respiratory Rate 20 15 19 Blood Pressure 143/94 H 155/97 H 149/96 H Pulse Oximetry 97 97 97 03/20/18 21:48 03/20/18 22:00 03/20/18 22:03 Temperature Pulse Rate 98 H 83 84 Respiratory Rate 21 21 22 Blood Pressure 164/106 H 163/103 H Pulse Oximetry 99 97 97 03/20/18 22:18 03/20/18 22:33 03/20/18 22:48 Temperature Pulse Rate 93 H 93 H 88 Respiratory Rate 19 22 17 Blood Pressure 149/96 H 144/94 H 147/100 H Pulse Oximetry 97 96 96 03/20/18 23:48 03/21/18 00:00 03/21/18 00:03 Temperature 99.4 F Pulse Rate 79 78 77 Respiratory Rate 20 15 13 Blood Pressure 131/92 H 141/82 H Pulse Oximetry 96 96 96 03/21/18 00:18 03/21/18 00:33 03/21/18 00:48 Temperature Pulse Rate 74 82 80 Respiratory Rate 20 19 18 Blood Pressure 142/94 H 138/91 H 137/90 Pulse Oximetry 96 96 96 03/21/18 01:00 03/21/18 01:03 03/21/18 01:18 Temperature Pulse Rate 73 76 80 Respiratory Rate 19 20 21 Blood Pressure 128/85 134/91 H Pulse Oximetry 97 96 96 03/21/18 01:33 03/21/18 01:48 03/21/18 02:00 Temperature Pulse Rate 76 73 72 Respiratory Rate 22 14 16 Blood Pressure 142/92 H 130/90 Pulse Oximetry 96 97 96 03/21/18 02:03 03/21/18 02:18 03/21/18 02:33 Temperature Pulse Rate 72 74 71 Respiratory Rate 14 17 17 Blood Pressure 127/87 131/87 126/87 Pulse Oximetry 95 95 96 03/21/18 02:48 03/21/18 03:00 03/21/18 03:03 Temperature Pulse Rate 73 73 74 Respiratory Rate 20 16 15 Blood Pressure 131/92 H 145/92 H Pulse Oximetry 96 96 96 03/21/18 03:18 03/21/18 03:33 03/21/18 03:48 Temperature Pulse Rate 81 77 75 Respiratory Rate 23 18 21 Blood Pressure 138/87 144/88 H 132/86 Pulse Oximetry 95 97 96 03/21/18 04:00 03/21/18 04:03 03/21/18 04:18 Temperature 99.3 F Pulse Rate 69 69 67 Respiratory Rate 15 14 16 Blood Pressure 128/89 131/89 Pulse Oximetry 96 96 96 03/21/18 04:33 03/21/18 04:48 03/21/18 05:00 Temperature Pulse Rate 70 68 71 Respiratory Rate 19 22 15 Blood Pressure 128/90 128/92 H Pulse Oximetry 97 97 97 03/21/18 05:03 03/21/18 05:18 03/21/18 05:48 Temperature Pulse Rate 68 75 84 Respiratory Rate 17 16 23 Blood Pressure 149/88 H 132/85 123/94 H Pulse Oximetry 95 98 03/21/18 06:00 03/21/18 06:03 03/21/18 06:18 Temperature Pulse Rate 71 73 72 Respiratory Rate 20 20 17 Blood Pressure 152/86 H 135/91 H Pulse Oximetry 03/21/18 06:33 03/21/18 06:48 03/21/18 07:00 Temperature Pulse Rate 78 76 73 Respiratory Rate 21 20 16 Blood Pressure 147/92 H 136/82 Pulse Oximetry 03/21/18 07:03 03/21/18 07:18 03/21/18 08:00 Temperature 98.6 F Pulse Rate 73 72 76 Respiratory Rate 21 18 19 Blood Pressure 140/87 133/84 137/88 Pulse Oximetry 03/21/18 10:45 03/21/18 11:21 03/21/18 12:00 Temperature 98.1 F Pulse Rate 103 H 86 90 Respiratory Rate 17 21 13 Blood Pressure 154/93 H 170/93 H 153/84 H Pulse Oximetry 100 100 99 03/21/18 13:00 03/21/18 13:30 03/21/18 13:45 Temperature Pulse Rate 79 84 83 Respiratory Rate 14 22 15 Blood Pressure 148/90 H 139/91 H 139/91 H Pulse Oximetry 99 100 98 03/21/18 14:00 03/21/18 14:15 03/21/18 14:30 Temperature Pulse Rate 70 79 66 Respiratory Rate 15 22 17 Blood Pressure 138/92 H 167/101 H 147/88 H Pulse Oximetry 99 100 100 03/21/18 14:45 Temperature Pulse Rate 69 Respiratory Rate 16 Blood Pressure 150/86 H Pulse Oximetry 100 Intake & Output 03/20/18 03/21/18 03/21/18 18:59 06:59 18:59 Intake Total 2300 / 2300 320 / 320 250 / 250 Output Total 1100 / 1100 1400 / 1400 / Balance 1200 / 1200 -1080 / -1080 249 / 249 Weight 66.7 kg Intake: IV 1000 / 1000 D5W/1/2 NS Inj 1,000 ML @ 50 1000 / 1000 mls/hr IV.CONT .Q20H [facility] Rx#: [id number] Oral 500 / 500 320 / 320 Anesthesia Amount 250 / 250 Intake (Blood Product) Amt 800 / 800 Rbc As-3 Leukoreduced Unit 400 / 400 [id number] Rbc As-3 Leukoreduced Unit 400 / 400 [id number] Output: Estimated Blood Loss 1 / 1 Urine Amount (Catheter) 200 / 200 300 / 300 Indwelling Urethral Catheter 200 / 200 300 / 300 Urine Amount (Stoma) 1100 / 1100 Nephrostomy Tube Left 1100 / 1100 Wound Drainage 900 / 900 Left Posterior Chest 900 / 900 Other: Bladder Irrigation Fluid - Amount Instilled 3-way Urethral 900 Bladder Irrigation Fluid - Amount Drained 3-way Urethral 1,100 Date of Last Bowel Movement 03/19/18 03/21/18 03/21/18 # Bowel Movements 1 Narrative: GENERAL: Alert and oriented. Thin SKIN: Warm and dry. NECK: Supple, trachea midline. No JVD CARDIOVASCULAR: Tachycardia. Regular rate and rhythm without murmurs, gallops, or rubs. right IJ vas cath. RESPIRATORY: Breath sounds equal bilaterally. No accessory muscle use. GASTROINTESTINAL: Abdomen soft, non-tender, nondistended. +BS GI: Left nephrostomy tube and indwelling Price catheter with bloody drainage. MUSCULOSKELETAL: No cyanosis, or edema. . - Urinary Catheter Management Indwelling Urethral Catheter Cath placed during this visit: yes Reason for continuing: Gross Hematuria Insertion date: 03/21/18 Insertion time: 10:03 3-way Urethral Cath placed during this visit: yes Reason for continuing: Gross Hematuria Insertion date: 03/21/18 <Wandy Pathak - Last Filed: 03/21/18 15:00> Vital signs: Vital Signs 03/20/18 18:18 03/20/18 18:33 03/20/18 18:48 Temperature Pulse Rate 82 90 86 Respiratory Rate 19 16 22 Blood Pressure 158/96 H 150/95 H 152/98 H Pulse Oximetry 97 98 97 03/20/18 19:00 03/20/18 19:03 03/20/18 19:18 Temperature Pulse Rate 88 94 H 104 H Respiratory Rate 21 20 25 H Blood Pressure 142/87 H 148/88 H Pulse Oximetry 96 95 95 03/20/18 19:33 03/20/18 19:48 03/20/18 20:00 Temperature Pulse Rate 82 87 91 H Respiratory Rate 18 18 21 Blood Pressure 147/90 H 140/90 Pulse Oximetry 97 96 97 03/20/18 20:03 03/20/18 20:18 03/20/18 20:33 Temperature 99.6 F Pulse Rate 85 86 90 Respiratory Rate 22 19 20 Blood Pressure 150/95 H 158/93 H 151/85 H Pulse Oximetry 98 97 96 03/20/18 20:48 03/20/18 21:00 03/20/18 21:03 Temperature Pulse Rate 90 94 H 87 Respiratory Rate 19 20 20 Blood Pressure 149/90 H 143/94 H Pulse Oximetry 97 96 97 03/20/18 21:18 03/20/18 21:33 03/20/18 21:48 Temperature Pulse Rate 84 85 98 H Respiratory Rate 15 19 21 Blood Pressure 155/97 H 149/96 H 164/106 H Pulse Oximetry 97 97 99 03/20/18 22:00 03/20/18 22:03 03/20/18 22:18 Temperature Pulse Rate 83 84 93 H Respiratory Rate 21 22 19 Blood Pressure 163/103 H 149/96 H Pulse Oximetry 97 97 97 03/20/18 22:33 03/20/18 22:48 03/20/18 23:48 Temperature Pulse Rate 93 H 88 79 Respiratory Rate 22 17 20 Blood Pressure 144/94 H 147/100 H 131/92 H Pulse Oximetry 96 96 96 03/21/18 00:00 03/21/18 00:03 03/21/18 00:18 Temperature 99.4 F Pulse Rate 78 77 74 Respiratory Rate 15 13 20 Blood Pressure 141/82 H 142/94 H Pulse Oximetry 96 96 96 03/21/18 00:33 03/21/18 00:48 03/21/18 01:00 Temperature Pulse Rate 82 80 73 Respiratory Rate 19 18 19 Blood Pressure 138/91 H 137/90 Pulse Oximetry 96 96 97 03/21/18 01:03 03/21/18 01:18 03/21/18 01:33 Temperature Pulse Rate 76 80 76 Respiratory Rate 20 21 22 Blood Pressure 128/85 134/91 H 142/92 H Pulse Oximetry 96 96 96 03/21/18 01:48 03/21/18 02:00 03/21/18 02:03 Temperature Pulse Rate 73 72 72 Respiratory Rate 14 16 14 Blood Pressure 130/90 127/87 Pulse Oximetry 97 96 95 03/21/18 02:18 03/21/18 02:33 03/21/18 02:48 Temperature Pulse Rate 74 71 73 Respiratory Rate 17 17 20 Blood Pressure 131/87 126/87 131/92 H Pulse Oximetry 95 96 96 03/21/18 03:00 03/21/18 03:03 03/21/18 03:18 Temperature Pulse Rate 73 74 81 Respiratory Rate 16 15 23 Blood Pressure 145/92 H 138/87 Pulse Oximetry 96 96 95 03/21/18 03:33 03/21/18 03:48 03/21/18 04:00 Temperature 99.3 F Pulse Rate 77 75 69 Respiratory Rate 18 21 15 Blood Pressure 144/88 H 132/86 Pulse Oximetry 97 96 96 03/21/18 04:03 03/21/18 04:18 03/21/18 04:33 Temperature Pulse Rate 69 67 70 Respiratory Rate 14 16 19 Blood Pressure 128/89 131/89 128/90 Pulse Oximetry 96 96 97 03/21/18 04:48 03/21/18 05:00 03/21/18 05:03 Temperature Pulse Rate 68 71 68 Respiratory Rate 22 15 17 Blood Pressure 128/92 H 149/88 H Pulse Oximetry 97 97 95 03/21/18 05:18 03/21/18 05:48 03/21/18 06:00 Temperature Pulse Rate 75 84 71 Respiratory Rate 16 23 20 Blood Pressure 132/85 123/94 H Pulse Oximetry 98 03/21/18 06:03 03/21/18 06:18 03/21/18 06:33 Temperature Pulse Rate 73 72 78 Respiratory Rate 20 17 21 Blood Pressure 152/86 H 135/91 H 147/92 H Pulse Oximetry 03/21/18 06:48 03/21/18 07:00 03/21/18 07:03 Temperature Pulse Rate 76 73 73 Respiratory Rate 20 16 21 Blood Pressure 136/82 140/87 Pulse Oximetry 03/21/18 07:18 03/21/18 08:00 03/21/18 10:45 Temperature 98.6 F Pulse Rate 72 76 103 H Respiratory Rate 18 19 17 Blood Pressure 133/84 137/88 154/93 H Pulse Oximetry 100 03/21/18 11:21 03/21/18 12:00 03/21/18 13:00 Temperature 98.1 F Pulse Rate 86 90 79 Respiratory Rate 21 13 14 Blood Pressure 170/93 H 153/84 H 148/90 H Pulse Oximetry 100 99 99 03/21/18 13:30 03/21/18 13:45 03/21/18 14:00 Temperature Pulse Rate 84 83 70 Respiratory Rate 22 15 15 Blood Pressure 139/91 H 139/91 H 138/92 H Pulse Oximetry 100 98 99 03/21/18 14:15 03/21/18 14:30 03/21/18 14:45 Temperature Pulse Rate 79 66 69 Respiratory Rate 22 17 16 Blood Pressure 167/101 H 147/88 H 150/86 H Pulse Oximetry 100 100 100 03/21/18 15:00 03/21/18 15:15 03/21/18 15:30 Temperature Pulse Rate 68 67 67 Respiratory Rate 17 14 16 Blood Pressure 150/92 H 141/89 H 154/88 H Pulse Oximetry 100 100 100 03/21/18 15:45 03/21/18 16:00 03/21/18 16:30 Temperature 98.6 F Pulse Rate 70 66 75 Respiratory Rate 15 17 20 Blood Pressure 152/93 H 146/92 H 161/99 H Pulse Oximetry 100 100 100 03/21/18 17:00 03/21/18 18:00 Temperature Pulse Rate 72 79 Respiratory Rate 19 17 Blood Pressure 155/96 H 167/96 H Pulse Oximetry 100 100 Intake & Output 03/20/18 03/21/18 03/21/18 18:59 06:59 18:59 Intake Total 2300 / 2300 320 / 320 250 / 250 Output Total 1100 / 1100 1400 / 1400 2000 Balance 1200 / 1200 -1080 / -1080 -1751 / -1751 Weight 66.7 kg Intake: IV 1000 / 1000 D5W/1/2 NS Inj 1,000 ML @ 50 1000 / 1000 mls/hr IV.CONT .Q20H [facility] Rx#: [id number] Oral 500 / 500 320 / 320 Anesthesia Amount 250 / 250 Intake (Blood Product) Amt 800 / 800 Rbc As-3 Leukoreduced Unit 400 / 400 [id number] Rbc As-3 Leukoreduced Unit 400 / 400 [id number] Output: Hemodialysis Amount 1999 / 1999 Estimated Blood Loss Urine Amount (Catheter) 200 / 200 300 / 300 Indwelling Urethral Catheter 200 / 200 300 / 300 Urine Amount (Stoma) 1100 / 1100 Nephrostomy Tube Left 1100 / 1100 Wound Drainage 900 / 900 Left Posterior Chest 900 / 900 Other: Bladder Irrigation Fluid - Amount Instilled 3-way Urethral 900 Bladder Irrigation Fluid - Amount Drained 3-way Urethral 1,100 Date of Last Bowel Movement 03/19/18 03/21/18 03/21/18 # Bowel Movements 1 - Urinary Catheter Management Indwelling Urethral Catheter Cath placed during this visit: no 3-way Urethral Cath placed during this visit: no <Jorge Luis Scott - Last Filed: 03/21/18 18:17> Assessment and Plan - Assessment (1) Acute kidney injury Code(s): N17.9 - Acute kidney failure, unspecified Status: Acute Plan: [place] possible ATN Urine EOS negative Repeat Renal ultrasound with known horseshoe kidney. There is no hydronephrosis on the right. There is moderate dilatation of the collecting system on the left with very poor delineation of the renal cortex. There is a 4 cm complex fluid collection around the nephrostomy. There is moderate free fluid present in the pelvis. Continue to monitor progress follow BMP Avoid nephrotoxins including IV contrast and NSAIDS Started HD on 03/17, vas cath 03/17 S/p cysto with stent placement Three way price placed with continuos irrigation. HD planned for today will remove fluid as tolerated. will continue to follow lab, urinary output, and watch for renal recovery. Creatinine at 7.3, non oliguric. Labs in AM (2) Hypertension Code(s): I10 - Essential (primary) hypertension Status: Acute Plan: Well controlled. Will monitor. (3) Sepsis Code(s): A41.9 - Sepsis, unspecified organism Status: Acute Plan: On antibiotics, renal dose as indicated. ID consulted. UA ordered. (4) Hydronephrosis of left kidney Code(s): N13.30 - Unspecified hydronephrosis Status: Chronic Onset Date: Unknown Plan: Cysto today with stent placement. (5) Anemia Code(s): D64.9 - Anemia, unspecified Status: Acute Plan: HGB improved at 9.5, Transfused PRBC yesterday. Transfuse for HGB less than 7.0 Epogen with dialysis <Wandy Pathak - Last Filed: 03/21/18 15:00> - Assessment (1) Acute kidney injury Code(s): N17.9 - Acute kidney failure, unspecified Status: Acute Plan: Patient seen and examined, agree with above. Seen during HD, has still elevated BUN and Creatinine. Has stent done, and now with bladder irrigation. HD now, watch for renal recovery. (2) Hypertension Code(s): I10 - Essential (primary) hypertension Status: Acute (3) Sepsis Code(s): A41.9 - Sepsis, unspecified organism Status: Acute (4) Hydronephrosis of left kidney Code(s): N13.30 - Unspecified hydronephrosis Status: Chronic Onset Date: Unknown (5) Anemia Code(s): D64.9 - Anemia, unspecified Status: Acute <Jorge Luis Scott - Last Filed: 03/21/18 18:17>
--- NOTE | 2018-03-21 15:46 | P.PNIM ---
Subjective Interval history: Patient reports that left flank pain is controlled. Denies any chest pain or shortness of breath. Denies nausea or vomiting. Physical Exam Vital signs: Vital Signs 03/20/18 15:48 03/20/18 16:00 03/20/18 16:03 Temperature 99.3 F Pulse Rate 83 84 86 Respiratory Rate 19 22 19 Blood Pressure 149/95 H 137/88 Pulse Oximetry 98 97 97 03/20/18 16:18 03/20/18 16:33 03/20/18 16:48 Temperature Pulse Rate 82 85 81 Respiratory Rate 18 21 18 Blood Pressure 140/90 132/92 H 136/96 H Pulse Oximetry 98 97 98 03/20/18 17:00 03/20/18 17:03 03/20/18 17:18 Temperature Pulse Rate 83 76 82 Respiratory Rate 19 19 20 Blood Pressure 141/91 H 150/95 H Pulse Oximetry 98 98 99 03/20/18 17:33 03/20/18 17:48 03/20/18 18:00 Temperature Pulse Rate 82 84 84 Respiratory Rate 19 18 15 Blood Pressure 141/91 H 146/95 H Pulse Oximetry 97 97 97 03/20/18 18:03 03/20/18 18:18 03/20/18 18:33 Temperature Pulse Rate 83 82 90 Respiratory Rate 15 19 16 Blood Pressure 143/94 H 158/96 H 150/95 H Pulse Oximetry 96 97 98 03/20/18 18:48 03/20/18 19:00 03/20/18 19:03 Temperature Pulse Rate 86 88 94 H Respiratory Rate 22 21 20 Blood Pressure 152/98 H 142/87 H Pulse Oximetry 97 96 95 03/20/18 19:18 03/20/18 19:33 03/20/18 19:48 Temperature Pulse Rate 104 H 82 87 Respiratory Rate 25 H 18 18 Blood Pressure 148/88 H 147/90 H 140/90 Pulse Oximetry 95 97 96 03/20/18 20:00 03/20/18 20:03 03/20/18 20:18 Temperature 99.6 F Pulse Rate 91 H 85 86 Respiratory Rate 21 22 19 Blood Pressure 150/95 H 158/93 H Pulse Oximetry 97 98 97 03/20/18 20:33 03/20/18 20:48 03/20/18 21:00 Temperature Pulse Rate 90 90 94 H Respiratory Rate 20 19 20 Blood Pressure 151/85 H 149/90 H Pulse Oximetry 96 97 96 03/20/18 21:03 03/20/18 21:18 03/20/18 21:33 Temperature Pulse Rate 87 84 85 Respiratory Rate 20 15 19 Blood Pressure 143/94 H 155/97 H 149/96 H Pulse Oximetry 97 97 97 03/20/18 21:48 03/20/18 22:00 03/20/18 22:03 Temperature Pulse Rate 98 H 83 84 Respiratory Rate 21 21 22 Blood Pressure 164/106 H 163/103 H Pulse Oximetry 99 97 97 03/20/18 22:18 03/20/18 22:33 03/20/18 22:48 Temperature Pulse Rate 93 H 93 H 88 Respiratory Rate 19 22 17 Blood Pressure 149/96 H 144/94 H 147/100 H Pulse Oximetry 97 96 96 03/20/18 23:48 03/21/18 00:00 03/21/18 00:03 Temperature 99.4 F Pulse Rate 79 78 77 Respiratory Rate 20 15 13 Blood Pressure 131/92 H 141/82 H Pulse Oximetry 96 96 96 03/21/18 00:18 03/21/18 00:33 03/21/18 00:48 Temperature Pulse Rate 74 82 80 Respiratory Rate 20 19 18 Blood Pressure 142/94 H 138/91 H 137/90 Pulse Oximetry 96 96 96 03/21/18 01:00 03/21/18 01:03 03/21/18 01:18 Temperature Pulse Rate 73 76 80 Respiratory Rate 19 20 21 Blood Pressure 128/85 134/91 H Pulse Oximetry 97 96 96 03/21/18 01:33 03/21/18 01:48 03/21/18 02:00 Temperature Pulse Rate 76 73 72 Respiratory Rate 22 14 16 Blood Pressure 142/92 H 130/90 Pulse Oximetry 96 97 96 03/21/18 02:03 03/21/18 02:18 03/21/18 02:33 Temperature Pulse Rate 72 74 71 Respiratory Rate 14 17 17 Blood Pressure 127/87 131/87 126/87 Pulse Oximetry 95 95 96 03/21/18 02:48 03/21/18 03:00 03/21/18 03:03 Temperature Pulse Rate 73 73 74 Respiratory Rate 20 16 15 Blood Pressure 131/92 H 145/92 H Pulse Oximetry 96 96 96 03/21/18 03:18 03/21/18 03:33 03/21/18 03:48 Temperature Pulse Rate 81 77 75 Respiratory Rate 23 18 21 Blood Pressure 138/87 144/88 H 132/86 Pulse Oximetry 95 97 96 03/21/18 04:00 03/21/18 04:03 03/21/18 04:18 Temperature 99.3 F Pulse Rate 69 69 67 Respiratory Rate 15 14 16 Blood Pressure 128/89 131/89 Pulse Oximetry 96 96 96 03/21/18 04:33 03/21/18 04:48 03/21/18 05:00 Temperature Pulse Rate 70 68 71 Respiratory Rate 19 22 15 Blood Pressure 128/90 128/92 H Pulse Oximetry 97 97 97 03/21/18 05:03 03/21/18 05:18 03/21/18 05:48 Temperature Pulse Rate 68 75 84 Respiratory Rate 17 16 23 Blood Pressure 149/88 H 132/85 123/94 H Pulse Oximetry 95 98 03/21/18 06:00 03/21/18 06:03 03/21/18 06:18 Temperature Pulse Rate 71 73 72 Respiratory Rate 20 20 17 Blood Pressure 152/86 H 135/91 H Pulse Oximetry 03/21/18 06:33 03/21/18 06:48 03/21/18 07:00 Temperature Pulse Rate 78 76 73 Respiratory Rate 21 20 16 Blood Pressure 147/92 H 136/82 Pulse Oximetry 03/21/18 07:03 03/21/18 07:18 03/21/18 08:00 Temperature 98.6 F Pulse Rate 73 72 76 Respiratory Rate 21 18 19 Blood Pressure 140/87 133/84 137/88 Pulse Oximetry 03/21/18 10:45 03/21/18 11:21 03/21/18 12:00 Temperature 98.1 F Pulse Rate 103 H 86 90 Respiratory Rate 17 21 13 Blood Pressure 154/93 H 170/93 H 153/84 H Pulse Oximetry 100 100 99 03/21/18 13:00 03/21/18 13:30 03/21/18 13:45 Temperature Pulse Rate 79 84 83 Respiratory Rate 14 22 15 Blood Pressure 148/90 H 139/91 H 139/91 H Pulse Oximetry 99 100 98 03/21/18 14:00 03/21/18 14:15 03/21/18 14:30 Temperature Pulse Rate 70 79 66 Respiratory Rate 15 22 17 Blood Pressure 138/92 H 167/101 H 147/88 H Pulse Oximetry 99 100 100 03/21/18 14:45 Temperature Pulse Rate 69 Respiratory Rate 16 Blood Pressure 150/86 H Pulse Oximetry 100 Intake & Output 03/20/18 03/21/18 03/21/18 18:59 06:59 18:59 Intake Total 2300 / 2300 320 / 320 250 / 250 Output Total 1100 / 1100 1400 / 1400 1 / 1 Balance 1200 / 1200 -1080 / -1080 249 / 249 Weight 66.7 kg Intake: IV 1000 / 1000 D5W/1/2 NS Inj 1,000 ML @ 50 1000 / 1000 mls/hr IV.CONT .Q20H [facility] Rx#: [id number] Oral 500 / 500 320 / 320 Anesthesia Amount 250 / 250 Intake (Blood Product) Amt 800 / 800 Rbc As-3 Leukoreduced Unit 400 / 400 [id number] Rbc As-3 Leukoreduced Unit 400 / 400 [id number] Output: Estimated Blood Loss 1 / Urine Amount (Catheter) 200 / 200 300 / 300 Indwelling Urethral Catheter 200 / 200 300 / 300 Urine Amount (Stoma) 1100 / 1100 Nephrostomy Tube Left 1100 / 1100 Wound Drainage 900 / 900 Left Posterior Chest 900 / 900 Other: Bladder Irrigation Fluid - Amount Instilled 3-way Urethral 900 Bladder Irrigation Fluid - Amount Drained 3-way Urethral 1,100 Date of Last Bowel Movement 03/19/18 03/21/18 03/21/18 # Bowel Movements 1 Narrative: GENERAL: Patient sitting up in bed. Appears uncomfortable. Alert. CARDIOVASCULAR: Regular rate and rhythm without murmurs, gallops, or rubs. RESPIRATORY: Breath sounds equal bilaterally. No accessory muscle use. GASTROINTESTINAL: Abdomen soft, non-tender, nondistended. Left flank with percutaneous nephrostomy tube in place as before. Urine with hematuria, no clots. MUSCULOSKELETAL: No cyanosis, or edema. BACK: Nontender without obvious deformity. No CVA tenderness. Urinary Catheter Management Indwelling Urethral Catheter: Cath placed during this visit: yes Reason for continuing: Gross Hematuria Insertion date: 03/21/18 Insertion time: 10:03 3-way Urethral: Cath placed during this visit: yes Reason for continuing: Gross Hematuria Insertion date: 03/21/18 Results Labs CBC & Chem 7: 03/21/18 05:30 03/21/18 05:30 Labs: Microbiology 03/17/18 19:31 Blood - Peripheral Aerobic Blood Culture - Preliminary No growth in 4 days 03/17/18 19:31 Blood - Peripheral Anaerobic Blood Culture - Preliminary No growth in 4 days 03/17/18 19:24 Blood - Peripheral Aerobic Blood Culture - Preliminary No growth in 4 days 03/17/18 19:24 Blood - Peripheral Anaerobic Blood Culture - Preliminary No growth in 4 days Imaging Imaging: Impressions Abdomen/Pelvis CT 03/20/18 00:00 CONCLUSION: 1. Stable appearance to the enlarged left moiety of horseshoe kidney with the evolving hemorrhage and nephrostomy catheter in place. No significant interval change when compared to 03/17/2018. 2. Moderate free fluid in the dependent pelvis and moderate-sized bilateral pleural effusions, stable. 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 He was admitted and seen by urology who arranged for percutaneous nephrostomy tube by IR on 03/08. Subsequently, patient continued to have gross hematuria require transfusion 2 units on 03/08 first and then again 2 units on March 11. Patient also developed acute renal failure and symptoms of dysphagia Septic shock due to pyelonephritis status post 8 days of Zosyn, now discontinued last vancomycin dose was 03/11 and stopped due to acute renal failure blood cultures negative urine culture negative, currently off of antibiotics. Remains afebrile. Appreciate infectious disease consult = 03/21 continue to monitor for signs of infection. White count downtrending today in the 12's. Off antibiotics. Severe hydronephrosis with UPJ obstruction with left horseshoe kidney status post percutaneous nephrostomy tube placement by IR on 03/08. Subsequent pain in left flank, CT shows localized hemorrhage and inflammation Continue management per urology = 03/[address] today with no change. So with hemorrhage. Urology may plan for cystoscopy. Appreciate assistance. = 03/21. Status post cystoscopy with stenting by urology today. On continuous bladder irrigation. Appreciate assistance. Monitor for improvement in urine output. Acute renal failure likely due to acute tubular necrosis Etiology is possibly due to vancomycin, sepsis and previous obstruction Creatinine worsened following localized hemorrhage, patient placed on dialysis Avoid nephrotoxic agents such as NSAIDs and contrast Patient still has urine output, consider holding Lasix since we have dialysis to remove extra fluid BMP today shows creatinine slightly worse Continue IV fluids as recommended by nephrology Appreciate nephrology consult and management = Continues on dialysis. Hopefully kidney function improves stent placement. Anemia due to acute blood loss status post 4 units of total transfusion Hemoglobin is stable in the 9.6 range continue to monitor CBC and transfuse as needed. = 03/20. Hemoglobin 6.5 from 7.2 yesterday. Transfuse 2 units and monitor. Severe protein calorie malnutrition with albumin 2.0 continue mighty shakes supplements, dietitian consultation Tolerating solid food. Nephro supplement. Dysphagia normals barium swallow EGD showed showed esophageal stricture status post dilation EGD biopsy pending Tolerating solid food Gastroenterology has signed off Hypertension controlled, much of it may be due to pain continue hydralazine, metoprolol Bilateral pleural effusion with bibasilar atelectasis encourage incentive spirometry use Extra fluid removed with dialysis -Likely secondary to fluid overload. Lasix on hold due to worsening of renal impairment h/o Asthma no acute exacerbation nebs as needed DVT prophylaxis SCDs, chemoprophylaxis contraindicated due to acute hemorrhage Discharge Planning: PT recommends rehab. Transfer to floor Progress Note: Quality VTE Deep Vein Thrombosis/Pulmonary Embolism Present on Admission: No _ (1) Hypertension Qualifiers: Hypertension type: (2) Sepsis Qualifiers: Sepsis type: (3) Anemia Qualifiers: Anemia type: Iron deficiency anemia type: Vitamin B12 deficiency anemia type: Folate deficiency anemia type: Bone marrow failure anemia type: Hemolytic anemia type: Other causes of anemia: Chronic kidney disease stage :
[2018-03-21] MEDS: Dextrose 5%/NaCl 0.45% Inj 1,000 ML IV.CONT SCH (18:35)
[2018-03-22] MEDS: HYDROmorphone PF Inj 0.5 MG/0.5 ML Syringe IV.PUSH PRN (07:57)
[2018-03-22] MEDS: Metoprolol Tartrate 25 MG Tablet PO SCH ×2 (08:00→20:45)
[2018-03-22] MEDS: Senna/Docusate Sodium 8.6/50 MG Tablet PO SCH ×2 (08:01→20:44)
--- NOTE | 2018-03-22 08:39 | P.PNURO ---
Subjective Patient symptoms today: Pt seen and examined. S/P cysto with b/l JJ stent insertion; clot evacuation yesterday. Objective Vital Signs: Vital Signs 03/21/18 10:45 03/21/18 11:21 03/21/18 12:00 Temperature 98.1 F Pulse Rate 103 H 86 90 Respiratory Rate 17 21 13 Blood Pressure 154/93 H 170/93 H 153/84 H Pulse Oximetry 100 100 99 03/21/18 13:00 03/21/18 13:30 03/21/18 13:45 Temperature Pulse Rate 79 84 83 Respiratory Rate 14 22 15 Blood Pressure 148/90 H 139/91 H 139/91 H Pulse Oximetry 99 100 98 03/21/18 14:00 03/21/18 14:15 03/21/18 14:30 Temperature Pulse Rate 70 79 66 Respiratory Rate 15 22 17 Blood Pressure 138/92 H 167/101 H 147/88 H Pulse Oximetry 99 100 100 03/21/18 14:45 03/21/18 15:00 03/21/18 15:15 Temperature Pulse Rate 69 68 67 Respiratory Rate 16 17 14 Blood Pressure 150/86 H 150/92 H 141/89 H Pulse Oximetry 100 100 100 03/21/18 15:30 03/21/18 15:45 03/21/18 16:00 Temperature 98.6 F Pulse Rate 67 70 66 Respiratory Rate 16 15 17 Blood Pressure 154/88 H 152/93 H 146/92 H Pulse Oximetry 100 100 100 03/21/18 16:30 03/21/18 17:00 03/21/18 18:00 Temperature Pulse Rate 75 72 79 Respiratory Rate 20 19 17 Blood Pressure 161/99 H 155/96 H 167/96 H Pulse Oximetry 100 100 100 03/21/18 19:00 03/21/18 19:02 03/21/18 20:00 Temperature 98.5 F Pulse Rate 93 H 87 91 H Respiratory Rate 21 24 23 Blood Pressure 146/91 H Pulse Oximetry 96 97 98 03/21/18 20:04 03/21/18 21:00 03/21/18 21:02 Temperature Pulse Rate 92 H 71 75 Respiratory Rate 39 H 20 19 Blood Pressure 149/96 H 149/91 H Pulse Oximetry 97 96 96 03/21/18 22:00 03/21/18 22:02 03/21/18 23:00 Temperature Pulse Rate 78 75 75 Respiratory Rate 18 21 19 Blood Pressure 139/92 H Pulse Oximetry 96 96 96 03/21/18 23:02 03/22/18 00:00 03/22/18 00:02 Temperature 99.0 F Pulse Rate 77 74 82 Respiratory Rate 18 21 19 Blood Pressure 153/93 H 154/90 H Pulse Oximetry 96 95 95 03/22/18 01:00 03/22/18 01:02 03/22/18 02:00 Temperature Pulse Rate 82 78 73 Respiratory Rate 17 18 18 Blood Pressure 145/90 H Pulse Oximetry 95 96 96 03/22/18 02:02 03/22/18 03:00 03/22/18 03:02 Temperature Pulse Rate 75 73 73 Respiratory Rate 19 19 16 Blood Pressure 139/90 144/84 H Pulse Oximetry 96 97 97 03/22/18 04:00 03/22/18 04:02 03/22/18 05:00 Temperature 99.1 F Pulse Rate 79 88 92 H Respiratory Rate 26 H 37 H 21 Blood Pressure 157/92 H Pulse Oximetry 97 93 L 94 L 03/22/18 05:02 03/22/18 06:00 03/22/18 06:02 Temperature Pulse Rate 76 93 H 73 Respiratory Rate 17 24 20 Blood Pressure 155/93 H 164/88 H Pulse Oximetry 97 94 L 94 L Intake & Output 03/21/18 03/22/18 03/22/18 18:59 06:59 18:59 Intake Total 1310 / 1310 240 / 240 Output Total 2476 / 2476 1475 / 1475 Balance -1166 / -1166 -1235 / -1235 Weight 61.3 kg Intake: IV 1000 / 1000 D5W/1/2 NS Inj 1,000 ML @ 50 1000 / 1000 mls/hr IV.CONT .Q20H [facility] Rx#: [id number] Oral 60 / 60 240 / 240 Anesthesia Amount 250 / 250 Output: Hemodialysis Amount 1999 / 1999 Estimated Blood Loss Urine Amount (Catheter) 1200 / 1200 3-way Urethral 1200 / 1200 Urine Amount (Stoma) 275 / 275 Nephrostomy Tube Left 275 / 275 Wound Drainage 475 / 475 Left Posterior Chest 475 / 475 Other: Bladder Irrigation Fluid - Amount Instilled 3-way Urethral 2,700 5,700 Bladder Irrigation Fluid - Amount Drained 3-way Urethral 3,125 6,900 Date of Last Bowel Movement 03/21/18 03/21/18 # Bowel Movements 1 Result Diagrams: 03/21/18 05:30 03/21/18 05:30 Medications and IVs: Active Medications Generic Name Dose Route Start Last Admin Trade Name Freq PRN Reason Stop Dose Admin Acetaminophen 650 mg 03/20/18 07:59 Tylenol PO Q4H PRN SEE LABEL COMMENTS Acetaminophen 650 mg 03/07/18 23:05 03/19/18 17:41 Tylenol PO 650 mg Q4H PRN Administration Temp > 100.4 Acetaminophen 650 mg 03/17/18 11:03 Tylenol PO UNSCH PRN SEE LABEL COMMENTS Belladonna Alkaloids/Opium 60 mg 03/10/18 15:43 03/21/18 10:40 B & O Supp RECTAL 60 mg Q6HR PRN Administration BLADDER SPASM Diphenhydramine HCl 25 mg 03/20/18 07:59 Benadryl PO Q4H PRN SEE LABEL COMMENTS Diphenhydramine HCl 25 mg 03/17/18 11:03 Benadryl PO UNSCH PRN SEE LABEL COMMENTS Epoetin Brandt 6,000 unit 03/17/18 11:03 03/18/18 12:18 Epogen Inj IV.PUSH 6,000 unit UNSCH PRN Administration SEE LABEL COMMENTS Furosemide 40 mg 03/15/18 09:00 03/18/18 09:53 Lasix Inj IV.PUSH Not Given BID@0900,1800 [facility] Gelatin 1 foam 03/17/18 11:03 Gelfoam 12 Mm/7 Mm Topical TOPICAL PRN PRN help stop bleeding from site Gentamicin Sulfate 20 mg 03/17/18 11:03 03/18/18 12:18 Gentamicin Inj OTHER 20 mg WITH DIALYSIS PRN Administration Dwell Gentamycin Lock Hydralazine HCl 25 mg 03/12/18 19:23 Apresoline PO TID [facility] Hydralazine HCl 10 mg 03/17/18 18:44 03/17/18 19:59 Apresoline Inj IV.PUSH 10 mg Q30M PRN Administration SBP>180, DBP>110 Hydromorphone HCl 0.5 mg 03/18/18 10:15 03/22/18 07:57 Dilaudid Pf Inj IV.PUSH 0.5 mg Q4H PRN Administration BREAKTHROUGH PAIN Dextrose/Sodium Chloride 1,000 mls @ 50 mls/hr 03/15/18 17:06 03/21/18 18:35 D5w/1/2 Ns Inj IV.CONT 50 mls/hr .Q20H [facility] Administration Albumin Human 100 mls @ 60 mls/hr 03/17/18 11:03 Flexbumin 25% Inj IV.SIG WITH DIALYSIS PRN hypotension / volume replace Sodium Chloride 1,000 mls @ 0 mls/hr 03/17/18 11:03 Ns Inj OTHER .Q0M PRN for prime and rinse back As Directed Sodium Chloride 1,000 mls @ 200 mls/hr 03/17/18 11:03 Ns Inj OTHER .Q5H PRN for dialyzer flush PRN Sodium Chloride 1,000 mls @ 0 mls/hr 03/17/18 11:03 Ns Inj IV.CONT .Q0M PRN hypotension / volume replace As Directed Mannitol 12.5 gm 03/17/18 11:03 Mannitol Inj IV.PUSH UNSCH PRN hypotension / volume replace Metoprolol Tartrate 12.5 mg 03/11/18 09:00 03/22/18 08:00 Lopressor PO 12.5 mg BID [facility] Administration Miscellaneous 1 each 03/11/18 10:00 03/15/18 08:51 Pill Splitter OTHER 1 each UNSCH [facility] Administration Miscellaneous Information 1 each 03/21/18 10:41 Mis Nursing Information OTHER 03/22/18 10:41 UNSCH PRN SEE LABEL COMMENTS Naloxone HCl 0.4 mg 03/17/18 16:50 Narcan Inj IV.PUSH UNSCH PRN SEE LABEL COMMENTS Nitroglycerin 0.4 mg 03/17/18 11:03 Nitrostat Sl SL Q5M PRN CHEST PAIN Ondansetron HCl 4 mg 03/07/18 23:05 03/19/18 08:19 Zofran Inj IV.PUSH 4 mg Q6H PRN Administration NAUSEA OR VOMITING Ondansetron HCl 4 mg 03/17/18 11:03 Zofran Inj IV.PUSH UNSCH PRN NAUSEA OR VOMITING Oxybutynin Chloride 5 mg 03/17/18 21:00 03/22/18 08:01 Ditropan PO 5 mg BID [facility] Administration Oxycodone HCl 5 mg 03/18/18 10:16 03/21/18 21:20 Roxicodone PO 5 mg Q4H PRN Administration Acute Pain 1-10 Pantoprazole Sodium 40 mg 03/13/18 15:45 03/22/18 08:01 Protonix PO 40 mg DAILY [facility] Administration Polyethylene Glycol 17 gm 03/09/18 14:24 03/09/18 21:14 Miralax PO 17 gm DAILY PRN Administration Moderate-severe constipation Senna/Docusate Sodium 1 tab 03/09/18 21:00 03/22/18 08:01 Allyssa-Colace PO 1 tab BID [facility] Administration Sodium Chloride 2 ml 03/08/18 09:00 03/22/18 08:01 Ns Flush IV.FLUSH Not Given BID [facility] Sodium Chloride 2 ml 03/07/18 23:05 03/20/18 21:44 Ns Flush IV.FLUSH 2 ml PRN PRN Administration FLUSH AFTER USING IV ACCESS Sodium Chloride 5 ml 03/17/18 11:03 Ns Flush IV.FLUSH PRN PRN flush each lumen during HD Objective Remarks: CV: sinus tach Abd:soft, mild distension; no rebound Price: old dark blood Ext: neg C/C/E 03/10 CV: sinus tach Abd:soft,less tenderness and distension Price: blood tinged PCNT: bloody 03/10 16:00: SP pains. Bladder not palpable. No SP tenderness. Abd: now non tender LLQ. Bloody urine via nephrostomy, no clots. Bloody urine via price catheter, no clots. 03/11: Scant urine output via Nephrostomy tube. It may not be draining, will wait and see. Fairly good urine output via price catheter. Urine dark blood tinged, no clots. BP varies high to normal, Pulse varies, temp 99. 03/12: See "Subjective" for the Objective. Suspect Vancomycin toxicity causing deterioration in kidney function and decreased urine output. N tube draining dark burgundy urine. PLAN: Dr. Little following the labs. N tube irrigation by IR if needed. 03/13 Abd:soft,nt,nd Left PNCT with blood Price: hematuria 03/14 Abd:soft,nt,nd Left PCNT: bloody Price: blood tinged 03/15 Abd:soft,nt,nd Left PCNT: bloody Price: blood tinged 03/16 Abd:soft,nt,nd Left PCNT: bloody Price: blood tinged 03/17 Abd:soft,nt,nd Left PCNT: bloody Price: blood tinged 03/20 Abd:soft,nt,nd Left PCNT: bloody Price: blood tinged 03/22 Abd:soft,nt,nd Left PCNT: blood tinged Price: clear on slow CBI Assessment and Plan - Assessment (1) Sepsis due to urinary tract infection Code(s): A41.9 - Sepsis, unspecified organism; N39.0 - Urinary tract infection, site not specified Status: Acute Onset Date: ~03/07/18 (2) Hydronephrosis of left kidney Code(s): N13.30 - Unspecified hydronephrosis Status: Chronic (3) 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 Back up plan is to try to place a urinary stent cystoscopically in the OR. However, there is a great possibility that the presumed UPJ stenosis will prevent passage of guide wires and stent. 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 Discussed with Dr. Little. 03/11: N tube may or may not be draining. Sepsis improving. Still having bladder spasms, receiving Morphine. PLAN: Continue same. 03/12 See "Subjective", "Objective". 03/13 37 y.o male with sepsis and h/o horseshoe kidney s/p PCNT placement with hematuria Continue supportive measures for now Transfuse PRBC's today if repeat Hgb is below 8 Monitor u/o; avoid nephrotoxins Will follow. 03/14 37 y.o male with sepsis and horseshoe kidney s/p PCNT with hematuria and ARF Hgb stablized at 8.3 this AM. Creatinine rising to 5.7; u/o dropping Await Nephrology input Monitor u/o Continue conservative measures for now. 03/15 37 y.o male with sepsis and horseshoe kidney s/p PCNT with hematuria and worsening ARF. Creatinine up to 7.2 up from 5.7. Hgb down to 7.8. Will transfuse 1 unit PRBC's. Await Nephrology input Monitor u/o. 03/16 37 y.o male with sepsis and horseshoe kidney s/p PCNT with hematuria and worsening ARF probably due to ATN Continue conservative management from standpoint. No evidence of active bleeding. Will follow. 03/17 37 y.o male with sepsis s/p PCNT with hematuria and ARF Maintain price catheter- urine is clearing and less bloody Continue conservative measures. 03/20 37 y.o male with sepsis s/p PCNT with hematuria and ARF Transfuse [address] scan today Hold Heparin with dialysis. 03/22 37 y.o male s/p cysto with b/l JJ stent insertion with clot evacuation Maintain slow CBI Follow creatinine. Large amount of clot in left collecting system s/p PCNT Continue dialysis for now. Hold heparin with dialysis. Once urine clears will remove PCNT.
[2018-03-22 11:46] LABS: Baso # (Auto) 0.1 th/mm3 (0.0-0.2); Baso % (Auto) 0.6 % (0.0-2.0); Eos # (Auto) 0.2 th/mm3 (0.0-0.4); Eos % (Auto) 1.8 % (0.0-4.0); Hematocrit 27.2 % (39.0-51.0); Hemoglobin 9.2 gm/dL (13.0-17.0); Lymph # (Auto) 1.1 th/mm3 (1.0-4.8); Lymph % (Auto) 8.4 % (9.0-44.0); Mean Corpuscular HGB Conc 33.9 % (32.0-36.0); Mean Corpuscular Hemoglobin 29.6 pg (27.0-34.0); Mean Corpuscular Volume 87.3 fL (80.0-100.0); Mean Platelet Volume 8.1 fL (7.0-11.0); Neut # (Auto) 10.4 th/mm3 (1.8-7.7); Neut % (Auto) 81.2 % (16.0-70.0); Platelet Count 440 th/mm3 (150-450); Red Blood Count 3.12 mil/mm3 (4.50-5.90); Red Cell Distribution Width 15.7 % (11.6-17.2); White Blood Count 12.8 th/mm3 (4.0-11.0)
[2018-03-22 12:14] LABS: Calcium 7.9 mg/dL (8.5-10.1); Carbon Dioxide 31.9 meq/L (21.0-32.0); Potassium 3.7 meq/L (3.5-5.1)
[2018-03-22] MEDS: Dextrose 5%/NaCl 0.45% Inj 1,000 ML IV.CONT SCH ×2 (12:48→17:19)
--- NOTE | 2018-03-22 13:00 | P.PNID ---
Subjective Remarks: Patient is a 37-year-old male, initially presented at [facility] for evaluation of abdominal pain on the left side. He also had some nausea, as well as some hematuria. Evaluation revealed hydronephrosis on the left side. Patient was transferred to [facility] for further management. Patient had an elevated WBC and creatinine. 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 Patient underwent placement of a nephrostomy tube on the left side. Patient has had problem with significant hematuria, and has required PRBC transfusion. He had one low-grade temperature since admission. He was put on antibiotics for UTI, and was on Zosyn from March 08 - March 15. Patient's creatinine continued to increase although he has good urine output from the nephrostomy, and lower output in his Caldwell catheter. His creatinine has gone up to 8. Vas-Cath was placed today and hemodialysis is planned. Patient currently is complaining of pain in the right neck where he has the Vas-Cath. He has mild pain over the left nephrostomy. He continues to have significant hematuria. He has been afebrile. He has had a few loose stools today. His last urinalysis was from March 13 with some mild pyuria and the culture is negative. Patient has been off antibiotics since March 15. Infectious disease consultation has been requested to evaluate the patient for possible persistent infection. Notes reviewed D/W RN No fever D/W Dr Garcia this morning NO pain Getting CBI CReatinine lower Had red rash in trunk earlier - gone now UA from nephrostomy with many bacteria UC pending Antibiotics: NOne Past Medical History: Asthma Seizures Hx of tympanostomy tubes Pneumothorax Allergies/Adverse Reactions: Allergies meperidine [From Demerol] Allergy (Verified 03/09/18 04:22) Hives Objective Vital Signs 03/21/18 13:00 03/21/18 13:30 03/21/18 13:45 Temperature Pulse Rate 79 84 83 Respiratory Rate 14 22 15 Blood Pressure 148/90 H 139/91 H 139/91 H Pulse Oximetry 99 100 98 03/21/18 14:00 03/21/18 14:15 03/21/18 14:30 Temperature Pulse Rate 70 79 66 Respiratory Rate 15 22 17 Blood Pressure 138/92 H 167/101 H 147/88 H Pulse Oximetry 99 100 100 03/21/18 14:45 03/21/18 15:00 03/21/18 15:15 Temperature Pulse Rate 69 68 67 Respiratory Rate 16 17 14 Blood Pressure 150/86 H 150/92 H 141/89 H Pulse Oximetry 100 100 100 03/21/18 15:30 03/21/18 15:45 03/21/18 16:00 Temperature 98.6 F Pulse Rate 67 70 66 Respiratory Rate 16 15 17 Blood Pressure 154/88 H 152/93 H 146/92 H Pulse Oximetry 100 100 100 03/21/18 16:30 03/21/18 17:00 03/21/18 18:00 Temperature Pulse Rate 75 72 79 Respiratory Rate 20 19 17 Blood Pressure 161/99 H 155/96 H 167/96 H Pulse Oximetry 100 100 100 03/21/18 19:00 03/21/18 19:02 03/21/18 20:00 Temperature 98.5 F Pulse Rate 93 H 87 91 H Respiratory Rate 21 24 23 Blood Pressure 146/91 H Pulse Oximetry 96 97 98 03/21/18 20:04 03/21/18 21:00 03/21/18 21:02 Temperature Pulse Rate 92 H 71 75 Respiratory Rate 39 H 20 19 Blood Pressure 149/96 H 149/91 H Pulse Oximetry 97 96 96 03/21/18 22:00 03/21/18 22:02 03/21/18 23:00 Temperature Pulse Rate 78 75 75 Respiratory Rate 18 21 19 Blood Pressure 139/92 H Pulse Oximetry 96 96 96 03/21/18 23:02 03/22/18 00:00 03/22/18 00:02 Temperature 99.0 F Pulse Rate 77 74 82 Respiratory Rate 18 21 19 Blood Pressure 153/93 H 154/90 H Pulse Oximetry 96 95 95 03/22/18 01:00 03/22/18 01:02 03/22/18 02:00 Temperature Pulse Rate 82 78 73 Respiratory Rate 17 18 18 Blood Pressure 145/90 H Pulse Oximetry 95 96 96 03/22/18 02:02 03/22/18 03:00 03/22/18 03:02 Temperature Pulse Rate 75 73 73 Respiratory Rate 19 19 16 Blood Pressure 139/90 144/84 H Pulse Oximetry 96 97 97 03/22/18 04:00 03/22/18 04:02 03/22/18 05:00 Temperature 99.1 F Pulse Rate 79 88 92 H Respiratory Rate 26 H 37 H 21 Blood Pressure 157/92 H Pulse Oximetry 97 93 L 94 L 03/22/18 05:02 03/22/18 06:00 03/22/18 06:02 Temperature Pulse Rate 76 93 H 73 Respiratory Rate 17 24 20 Blood Pressure 155/93 H 164/88 H Pulse Oximetry 97 94 L 94 L 03/22/18 07:00 03/22/18 08:00 03/22/18 09:00 Temperature 98.9 F Pulse Rate 72 72 74 Respiratory Rate 18 20 16 Blood Pressure 167/100 H 163/107 H 163/101 H Pulse Oximetry 96 97 96 03/22/18 10:00 03/22/18 11:00 03/22/18 12:00 Temperature 98.3 F Pulse Rate 83 82 71 Respiratory Rate 18 17 15 Blood Pressure 148/105 H 162/100 H 144/98 H Pulse Oximetry 96 97 97 Intake & Output 03/21/18 03/22/18 03/22/18 18:59 06:59 18:59 Intake Total 1310 / 1310 240 / 240 1000 / 1000 Output Total 2476 / 2476 1475 / 1475 Balance -1166 / -1166 -1235 / -1235 1000 / 1000 Weight 61.3 kg Intake: IV 1000 / 1000 1000 / 1000 D5W/1/2 NS Inj 1,000 ML @ 50 1000 / 1000 1000 / 1000 mls/hr IV.CONT .Q20H [facility] Rx#: [id number] Oral 60 / 60 240 / 240 Anesthesia Amount 250 / 250 Output: Hemodialysis Amount 1999 / 1999 Estimated Blood Loss 1 / Urine Amount (Catheter) 1200 / 1200 3-way Urethral 1200 / 1200 Urine Amount (Stoma) 275 / 275 Nephrostomy Tube Left 275 / 275 Wound Drainage 475 / 475 Left Posterior Chest 475 / 475 Other: Bladder Irrigation Fluid - Amount Instilled 3-way Urethral 2,700 5,700 Bladder Irrigation Fluid - Amount Drained 3-way Urethral 3,125 6,900 Date of Last Bowel Movement 03/21/18 03/21/18 03/21/18 # Bowel Movements 1 03/17/18 19:31 Blood - Peripheral Aerobic Blood Culture - Final No growth in 5 days 03/17/18 19:31 Blood - Peripheral Anaerobic Blood Culture - Final No growth in 5 days 03/17/18 19:24 Blood - Peripheral Aerobic Blood Culture - Final No growth in 5 days 03/17/18 19:24 Blood - Peripheral Anaerobic Blood Culture - Final No growth in 5 days 03/21/18 14:05 Clean Catch Urine Urine Culture - Pending 03/18/18 02:00 Catheterized Urine Urine Culture - Final No growth in 48 hours Lab - Hematology Results 03/21/18 03/22/18 05:30 10:46 WBC 12.9 H 12.8 H RBC 3.07 L 3.12 L Hgb 9.1 L D 9.2 L Hct 26.5 L 27.2 L MCV 86.4 87.3 MCH 29.6 29.6 MCHC 34.2 33.9 RDW 15.7 15.7 Plt Count 459 H 440 MPV 8.3 8.1 Neut % (Auto) 75.8 H 81.2 H Lymph % (Auto) 12.8 8.4 L [place] % (Auto) 8.9 H 8.0 Eos % (Auto) 1.8 1.8 Baso % (Auto) 0.7 0.6 Neut # (Auto) 9.8 H 10.4 H Lymph # (Auto) 1.7 1.1 [place] # (Auto) 1.2 H 1.0 H Eos # (Auto) 0.2 0.2 Baso # (Auto) 0.1 0.1 WBC Differential . . Differential Comment Auto diff final Auto diff final Lab - Chemistry Results 03/21/18 03/22/18 05:30 10:46 Sodium 140 141 Potassium 3.9 3.7 Chloride 103 102 Carbon Dioxide 29.8 31.9 Anion Gap 7 7 BUN 39 H 19 H Creatinine 7.34 H 4.72 H Estimated GFR 8 L 14 L Random Glucose 92 96 Calcium 8.0 L 7.9 L Phosphorus 4.1 Magnesium 1.9 Albumin 2.4 L Imaging: ITS Impressions Nephrostomy 03/08/18 00:00 CONCLUSION: 1. Uncomplicated nephrostomy tube placement as above. CT scan will be repeated to evaluate the kidney following percutaneous drainage Abdomen/Bladder Ultrasound 03/13/18 00:00 CONCLUSION: 1. Markedly abnormal left kidney with nephrostomy tube in place. 2. Repeat noncontrast CT scan may be of benefit. Videofluoroscopic Swallow 03/14/18 15:40 CONCLUSION: Unremarkable modified swallow. See speech pathology report. Barium Swallow X-Ray 03/15/18 00:00 CONCLUSION: 1. Limited examination with no stricture or ulceration. 2. Small reducible hiatal hernia. Catheter Placement 03/17/18 00:00 CONCLUSION: 1. Uncomplicated right IJ Vas-Cath placement as above. Abdomen/Pelvis CT 03/20/18 00:00 CONCLUSION: 1. Stable appearance to the enlarged left moiety of horseshoe kidney with the evolving hemorrhage and nephrostomy catheter in place. No significant interval change when compared to 03/17/2018. 2. Moderate free fluid in the dependent pelvis and moderate-sized bilateral pleural effusions, stable. Physical Exam: GENERAL: awake and alert, not in respiratory distress. SKIN: Cool and dry. Pale. No generalized rash EYES: [place] conjunctiva. No petechia or hemorrhage. Pupils equal, round and reactive to light. Extraocular movements full and intact. No scleral icterus. No injection or drainage. EARS, NOSE AND THROAT: Nose without bleeding or purulent nasal discharge. No sinus tenderness. Mucous membranes pink and moist. No oral lesions noted. No exudate. No oral thrush. NECK: Trachea midline. Supple and not tender, no meningeal signs CARDIOVASCULAR: Regular rate and rhythm. No murmurs, rubs or gallops heard RESPIRATORY: Clear to auscultation. Breath sounds equal bilaterally. No rales , wheezing or rhonchi ABDOMEN: Soft, non-tender, nondistended. Bowel sounds present and normoactive. No guarding. No rebound. No organomegaly. L nephrostomy tube with bloody urine : Caldwell with blood tinged urine, lo0oks better EXTREMITIES: No clubbing, cyanosis. has bilateral pedal edema. No calf tenderness. NEUROLOGICAL: Non-focal. PSYCHIATRIC: Normal affect, calm and cooperative. LINE: No evidence of infection Assessment and Plan - Plan Impression Hematuria - has obstruction L kidney, with horse shoe kidnea - has nephrostomy on the left side - s/p cysto, has bilateral stents Hematuria Progressive renal failure, still nonoliguric - has been started on HD Status post treatment for UTI Episode of rigors, fever and tachy 03/17 possibly due to clots causing blockage - better Recommendation Follow new UC Not on any Abx currently MOnitor skin Follow temps Monitor progress D/W RN
--- NOTE | 2018-03-22 13:54 | P.DIET ---
Nutritional Evaluation Type of nutrition evaluation: follow-up (Patient transferred from [facility]) Nutrition consult regarding: Diet Evaluation Nutrition screening: [facility] Screening comments: 03/12 [facility] Malnutrition/diet evaluation 03/14 [facility] malnutrition Subjective Subjective Comments: Very poor po intake noted Objective - Diagnosis Abdominal pain, hydronephrosis - Objective % IBW: 81 (IBW:166lbs) Body Weight Used for Calculations: Actual (59.3kg) Energy Needs - Lower Range (kCal/kg): 30 Energy Needs - Upper Range (kCal/kg): 35 Lower Limit kCal/kg (kCals): 1,779 Upper Limit kCal/kg (kCals): 2,076 Lower Limit Protein Factor (Grams per Kg): 1.2 Upper Limit Protein Factor (Grams per Kg): 1.5 Lower Protein Needs (Protein): 71 Upper Protein Needs (Protein): 90 Dietitian Reviewed in Medical Record: Current diet, Curent medications, Intake & Output, Labs, Medical history Diet Order: Renal, 2 gm Na Oral Diet Intake Amount: Poor <50% Objective Comments: PMH: asthma, seizures 03/16 panendoscopy 03/21 cystoscopy, R ureteral dilation, B stents, clot evacuation Assessment Assessment: Pt remains at high nutrition risk 2' to poor po intake and low wt for ht with a BMI of 19.4. He has started hemodialysis on 03/18. Will send Nepro qd for added nutrition; each 8 oz serving provides 425 kcals and [address] will monitor acceptance. Labs, wts and clinical course reviewed: no wt loss noted when compared to admission wt. CBW = 61.3 kg Recommendations: Nepro qd Monitor acceptance Dietitian to Monitor: Lab values, Supplement acceptance, Intake & Output, Diet tolerance, Weight change, PO Intake, Medical course
--- NOTE | 2018-03-22 17:50 | P.PNNP ---
Subjective Interval history: Resting in bed. Reports generalized weakness and pain level of 2-3. Hemodialysis yesterday tolerated well. Creatinine at 4.7. <Wandy Pathak - Last Filed: 03/22/18 17:44> Physical Exam Vital signs: Vital Signs 03/21/18 18:00 03/21/18 19:00 03/21/18 19:02 Temperature Pulse Rate 79 93 H 87 Respiratory Rate 17 21 24 Blood Pressure 167/96 H 146/91 H Pulse Oximetry 100 96 97 03/21/18 20:00 03/21/18 20:04 03/21/18 21:00 Temperature 98.5 F Pulse Rate 91 H 92 H 71 Respiratory Rate 23 39 H 20 Blood Pressure 149/96 H Pulse Oximetry 98 97 96 03/21/18 21:02 03/21/18 22:00 03/21/18 22:02 Temperature Pulse Rate 75 78 75 Respiratory Rate 19 18 21 Blood Pressure 149/91 H 139/92 H Pulse Oximetry 96 96 96 03/21/18 23:00 03/21/18 23:02 03/22/18 00:00 Temperature 99.0 F Pulse Rate 75 77 74 Respiratory Rate 19 18 21 Blood Pressure 153/93 H Pulse Oximetry 96 96 95 03/22/18 00:02 03/22/18 01:00 03/22/18 01:02 Temperature Pulse Rate 82 82 78 Respiratory Rate 19 17 18 Blood Pressure 154/90 H 145/90 H Pulse Oximetry 95 95 96 03/22/18 02:00 03/22/18 02:02 03/22/18 03:00 Temperature Pulse Rate 73 75 73 Respiratory Rate 18 19 19 Blood Pressure 139/90 Pulse Oximetry 96 96 97 03/22/18 03:02 03/22/18 04:00 03/22/18 04:02 Temperature 99.1 F Pulse Rate 73 79 88 Respiratory Rate 16 26 H 37 H Blood Pressure 144/84 H 157/92 H Pulse Oximetry 97 97 93 L 03/22/18 05:00 03/22/18 05:02 03/22/18 06:00 Temperature Pulse Rate 92 H 76 93 H Respiratory Rate 21 17 24 Blood Pressure 155/93 H Pulse Oximetry 94 L 97 94 L 03/22/18 06:02 03/22/18 07:00 03/22/18 08:00 Temperature 98.9 F Pulse Rate 73 72 72 Respiratory Rate 20 18 20 Blood Pressure 164/88 H 167/100 H 163/107 H Pulse Oximetry 94 L 96 97 03/22/18 09:00 03/22/18 10:00 03/22/18 11:00 Temperature Pulse Rate 74 83 82 Respiratory Rate 16 18 17 Blood Pressure 163/101 H 148/105 H 162/100 H Pulse Oximetry 96 96 97 03/22/18 12:00 03/22/18 13:00 03/22/18 14:00 Temperature 98.3 F Pulse Rate 71 75 81 Respiratory Rate 15 18 17 Blood Pressure 144/98 H 168/96 H 148/99 H Pulse Oximetry 97 97 96 03/22/18 15:00 03/22/18 16:00 03/22/18 17:00 Temperature 98.6 F Pulse Rate 97 H 70 92 H Respiratory Rate 20 18 22 Blood Pressure 156/99 H 166/100 H 172/98 H Pulse Oximetry Intake & Output 03/21/18 03/22/18 03/22/18 18:59 06:59 18:59 Intake Total 1310 / 1310 240 / 240 1269 / 1269 Output Total 2476 / 2476 1475 / 1475 Balance -1166 / -1166 -1235 / -1235 1269 / 1269 Weight 61.3 kg Intake: IV 1000 / 1000 1269 / 1269 D5W/1/2 NS Inj 1,000 ML @ 50 1000 / 1000 1269 / 1269 mls/hr IV.CONT .Q20H [facility] Rx#: [id number] Oral 60 / 60 240 / 240 Anesthesia Amount 250 / 250 Output: Hemodialysis Amount 1999 Estimated Blood Loss Urine Amount (Catheter) 1200 / 1200 3-way Urethral 1200 / 1200 Urine Amount (Stoma) 275 / 275 Nephrostomy Tube Left 275 / 275 Wound Drainage 475 / 475 Left Posterior Chest 475 / 475 Other: Bladder Irrigation Fluid - Amount Instilled 3-way Urethral 2,700 5,700 Bladder Irrigation Fluid - Amount Drained 3-way Urethral 3,125 6,900 Date of Last Bowel Movement 03/21/18 03/21/18 03/21/18 # Bowel Movements 1 Narrative: GENERAL: Alert and oriented. Thin SKIN: Warm and dry. NECK: Supple, trachea midline. No JVD CARDIOVASCULAR: Tachycardia. Regular rate and rhythm without murmurs, gallops, or rubs. right IJ vas cath. RESPIRATORY: Breath sounds equal bilaterally. No accessory muscle use. GASTROINTESTINAL: Abdomen soft, non-tender, nondistended. +BS GI: Left nephrostomy tube and indwelling Price catheter MUSCULOSKELETAL: No cyanosis, or edema. . - Urinary Catheter Management Indwelling Urethral Catheter Cath placed during this visit: yes Reason for continuing: Gross Hematuria Insertion date: 03/21/18 Insertion time: 10:03 3-way Urethral Cath placed during this visit: yes Reason for continuing: Other continuation reason Insertion date: 03/21/18 <Wandy Pathak - Last Filed: 03/22/18 17:44> Vital signs: Vital Signs 03/21/18 22:00 03/21/18 22:02 03/21/18 23:00 Temperature Pulse Rate 78 75 75 Respiratory Rate 18 21 19 Blood Pressure 139/92 H Pulse Oximetry 96 96 96 03/21/18 23:02 03/22/18 00:00 03/22/18 00:02 Temperature 99.0 F Pulse Rate 77 74 82 Respiratory Rate 18 21 19 Blood Pressure 153/93 H 154/90 H Pulse Oximetry 96 95 95 03/22/18 01:00 03/22/18 01:02 03/22/18 02:00 Temperature Pulse Rate 82 78 73 Respiratory Rate 17 18 18 Blood Pressure 145/90 H Pulse Oximetry 95 96 96 03/22/18 02:02 03/22/18 03:00 03/22/18 03:02 Temperature Pulse Rate 75 73 73 Respiratory Rate 19 19 16 Blood Pressure 139/90 144/84 H Pulse Oximetry 96 97 97 03/22/18 04:00 03/22/18 04:02 03/22/18 05:00 Temperature 99.1 F Pulse Rate 79 88 92 H Respiratory Rate 26 H 37 H 21 Blood Pressure 157/92 H Pulse Oximetry 97 93 L 94 L 03/22/18 05:02 03/22/18 06:00 03/22/18 06:02 Temperature Pulse Rate 76 93 H 73 Respiratory Rate 17 24 20 Blood Pressure 155/93 H 164/88 H Pulse Oximetry 97 94 L 94 L 03/22/18 07:00 03/22/18 08:00 03/22/18 09:00 Temperature 98.9 F Pulse Rate 72 72 74 Respiratory Rate 18 20 16 Blood Pressure 167/100 H 163/107 H 163/101 H Pulse Oximetry 96 97 96 03/22/18 10:00 03/22/18 11:00 03/22/18 12:00 Temperature 98.3 F Pulse Rate 83 82 71 Respiratory Rate 18 17 15 Blood Pressure 148/105 H 162/100 H 144/98 H Pulse Oximetry 96 97 97 03/22/18 13:00 03/22/18 14:00 03/22/18 15:00 Temperature Pulse Rate 75 81 97 H Respiratory Rate 18 17 20 Blood Pressure 168/96 H 148/99 H 156/99 H Pulse Oximetry 97 96 03/22/18 16:00 03/22/18 17:00 03/22/18 18:00 Temperature 98.6 F Pulse Rate 70 92 H 78 Respiratory Rate 18 22 18 Blood Pressure 166/100 H 172/98 H 148/94 H Pulse Oximetry 97 Intake & Output 03/22/18 03/22/18 03/23/18 06:59 18:59 06:59 Intake Total 240 / 240 1389 / 1389 Output Total 1475 / 1475 875 / 875 Balance -1235 / -1235 514 / 514 Weight 61.3 kg Intake: IV 1269 / 1269 D5W/1/2 NS Inj 1,000 ML @ 50 1269 / 1269 mls/hr IV.CONT .Q20H [facility] Rx#: [id number] Oral 240 / 240 120 / 120 Output: Urine Amount (Catheter) 1200 / 1200 550 / 550 3-way Urethral 1200 / 1200 550 / 550 Urine Amount (Stoma) 275 / 275 Nephrostomy Tube Left 275 / 275 Wound Drainage 325 / 325 Left Posterior Chest 325 / 325 Other: Bladder Irrigation Fluid - Amount Instilled 3-way Urethral 5,700 6,000 Bladder Irrigation Fluid - Amount Drained 3-way Urethral 6,900 6,550 Date of Last Bowel Movement 03/21/18 03/21/18 # Bowel Movements 0 - Urinary Catheter Management Indwelling Urethral Catheter Cath placed during this visit: no 3-way Urethral Cath placed during this visit: no <Jorge Luis Scott - Last Filed: 03/22/18 21:21> Assessment and Plan - Assessment (1) Acute kidney injury Code(s): N17.9 - Acute kidney failure, unspecified Status: Acute Plan: [place] possible ATN from vancomycin toxicity. Repeat Renal ultrasound with known horseshoe kidney. There is no hydronephrosis on the right. There is moderate dilatation of the collecting system on the left with very poor delineation of the renal cortex. There is a 4 cm complex fluid collection around the nephrostomy. There is moderate free fluid present in the pelvis. Continue to monitor progress follow BMP Avoid nephrotoxins including IV contrast and NSAIDS Started HD on 03/17, vas cath 03/17 S/p cysto with stent placement Three way price placed with continuos irrigation. HD yesterday with removal of 2 liters of fluid will continue to follow lab, urinary output, and watch for renal recovery. Creatinine has improved today at 4.7 from 7.3, non oliguric Labs in AM HD planned for tomorrow. (2) Hypertension Code(s): I10 - Essential (primary) hypertension Status: Acute Plan: Well controlled. Will monitor. (3) Sepsis Code(s): A41.9 - Sepsis, unspecified organism Status: Acute Plan: On antibiotics, renal dose as indicated. ID consulted. (4) Hydronephrosis of left kidney Code(s): N13.30 - Unspecified hydronephrosis Status: Chronic Onset Date: Unknown Plan: Cysto today with stent placement. (5) Anemia Code(s): D64.9 - Anemia, unspecified Status: Acute Plan: HGB improved at 9.2, Transfused PRBC / Transfuse for HGB less than 7.0 Epogen with dialysis <Wandy Pathak - Last Filed: 03/22/18 17:44> - Assessment (1) Acute kidney injury Code(s): N17.9 - Acute kidney failure, unspecified Status: Acute Plan: Patient seen and examined, agree with above. Creatinine remain elevated. HD will be in AM. Continue CBI. (2) Hypertension Code(s): I10 - Essential (primary) hypertension Status: Acute (3) Sepsis Code(s): A41.9 - Sepsis, unspecified organism Status: Acute (4) Hydronephrosis of left kidney Code(s): N13.30 - Unspecified hydronephrosis Status: Chronic Onset Date: Unknown (5) Anemia Code(s): D64.9 - Anemia, unspecified Status: Acute <Jorge Luis Scott - Last Filed: 03/22/18 21:21>
--- NOTE | 2018-03-22 18:44 | P.PNIM ---
Subjective Interval history: Patient says he is feeling little better today. Reports left flank pain is controlled. Denies any chest pain or shortness of breath. Denies nausea or vomiting. Positive bowel movement. Physical Exam Vital signs: Vital Signs 03/21/18 19:00 03/21/18 19:02 03/21/18 20:00 Temperature 98.5 F Pulse Rate 93 H 87 91 H Respiratory Rate 21 24 23 Blood Pressure 146/91 H Pulse Oximetry 96 97 98 03/21/18 20:04 03/21/18 21:00 03/21/18 21:02 Temperature Pulse Rate 92 H 71 75 Respiratory Rate 39 H 20 19 Blood Pressure 149/96 H 149/91 H Pulse Oximetry 97 96 96 03/21/18 22:00 03/21/18 22:02 03/21/18 23:00 Temperature Pulse Rate 78 75 75 Respiratory Rate 18 21 19 Blood Pressure 139/92 H Pulse Oximetry 96 96 96 03/21/18 23:02 03/22/18 00:00 03/22/18 00:02 Temperature 99.0 F Pulse Rate 77 74 82 Respiratory Rate 18 21 19 Blood Pressure 153/93 H 154/90 H Pulse Oximetry 96 95 95 03/22/18 01:00 03/22/18 01:02 03/22/18 02:00 Temperature Pulse Rate 82 78 73 Respiratory Rate 17 18 18 Blood Pressure 145/90 H Pulse Oximetry 95 96 96 03/22/18 02:02 03/22/18 03:00 03/22/18 03:02 Temperature Pulse Rate 75 73 73 Respiratory Rate 19 19 16 Blood Pressure 139/90 144/84 H Pulse Oximetry 96 97 97 03/22/18 04:00 03/22/18 04:02 03/22/18 05:00 Temperature 99.1 F Pulse Rate 79 88 92 H Respiratory Rate 26 H 37 H 21 Blood Pressure 157/92 H Pulse Oximetry 97 93 L 94 L 03/22/18 05:02 03/22/18 06:00 03/22/18 06:02 Temperature Pulse Rate 76 93 H 73 Respiratory Rate 17 24 20 Blood Pressure 155/93 H 164/88 H Pulse Oximetry 97 94 L 94 L 03/22/18 07:00 03/22/18 08:00 03/22/18 09:00 Temperature 98.9 F Pulse Rate 72 72 74 Respiratory Rate 18 20 16 Blood Pressure 167/100 H 163/107 H 163/101 H Pulse Oximetry 96 97 96 03/22/18 10:00 03/22/18 11:00 03/22/18 12:00 Temperature 98.3 F Pulse Rate 83 82 71 Respiratory Rate 18 17 15 Blood Pressure 148/105 H 162/100 H 144/98 H Pulse Oximetry 96 97 97 03/22/18 13:00 03/22/18 14:00 03/22/18 15:00 Temperature Pulse Rate 75 81 97 H Respiratory Rate 18 17 20 Blood Pressure 168/96 H 148/99 H 156/99 H Pulse Oximetry 97 96 03/22/18 16:00 03/22/18 17:00 03/22/18 18:00 Temperature 98.6 F Pulse Rate 70 92 H 78 Respiratory Rate 18 22 18 Blood Pressure 166/100 H 172/98 H 148/94 H Pulse Oximetry 97 Intake & Output 03/21/18 03/22/18 03/22/18 18:59 06:59 18:59 Intake Total 1310 / 1310 240 / 240 1389 / 1389 Output Total 2901 / 2901 1475 / 1475 875 / 875 Balance -1591 / -1591 -1235 / -1235 514 / 514 Weight 61.3 kg Intake: IV 1000 / 1000 1269 / 1269 D5W/1/2 NS Inj 1,000 ML @ 50 1000 / 1000 1269 / 1269 mls/hr IV.CONT .Q20H [facility] Rx#: [id number] Oral 60 / 60 240 / 240 120 / 120 Anesthesia Amount 250 / 250 Output: Hemodialysis Amount 1999 Estimated Blood Loss 1 / Urine Amount (Catheter) 425 / 425 1200 / 1200 550 / 550 3-way Urethral 425 / 425 1200 / 1200 550 / 550 Urine Amount (Stoma) 275 / 275 Nephrostomy Tube Left 275 / 275 Wound Drainage 475 / 475 325 / 325 Left Posterior Chest 475 / 475 325 / 325 Other: Bladder Irrigation Fluid - Amount Instilled 3-way Urethral 2,700 5,700 6,000 Bladder Irrigation Fluid - Amount Drained 3-way Urethral 3,125 6,900 6,550 Date of Last Bowel Movement 03/21/18 03/21/18 03/21/18 # Bowel Movements 1 0 Narrative: GENERAL: Patient sitting up in bed. Appears comfortable today.. Alert. CARDIOVASCULAR: Regular rate and rhythm without murmurs, gallops, or rubs. RESPIRATORY: Breath sounds equal bilaterally. No accessory muscle use. GASTROINTESTINAL: Abdomen soft, non-tender, nondistended. Left flank with percutaneous nephrostomy tube in place as before. Urine with hematuria, no clots, no change from yesterday. [place] undergoing irrigation with light hematuria today. MUSCULOSKELETAL: No cyanosis, or edema. BACK: Nontender without obvious deformity. No CVA tenderness. Urinary Catheter Management Indwelling Urethral Catheter: Cath placed during this visit: yes Reason for continuing: Gross Hematuria Insertion date: 03/21/18 Insertion time: 10:03 3-way Urethral: Cath placed during this visit: yes Reason for continuing: Other continuation reason Insertion date: 03/21/18 Results Labs CBC & Chem 7: 03/22/18 10:46 03/22/18 10:46 Labs: Microbiology 03/21/18 14:05 Clean Catch Urine Urine Culture - Preliminary No growth in 24 hours 03/17/18 19:31 Blood - Peripheral Aerobic Blood Culture - Final No growth in 5 days 03/17/18 19:31 Blood - Peripheral Anaerobic Blood Culture - Final No growth in 5 days 03/17/18 19:24 Blood - Peripheral Aerobic Blood Culture - Final No growth in 5 days 03/17/18 19:24 Blood - Peripheral Anaerobic Blood Culture - Final No growth in 5 days Assessment and Plan (1) Acute kidney injury: Code(s): N17.9 - Acute kidney failure, unspecified Status: Acute (2) Hypertension: Code(s): I10 - Essential (primary) hypertension Status: Acute (3) Sepsis: Code(s): A41.9 - Sepsis, unspecified organism Status: Acute (4) Hydronephrosis of left kidney: Code(s): N13.30 - Unspecified hydronephrosis Status: Chronic Onset Date: Unknown (5) Anemia: Code(s): D64.9 - Anemia, unspecified Status: Acute Plan 37-year-old male presents with complaint of abdominal pain hematuria found to be septic due to pyelonephritis with 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 He was admitted and seen by urology who arranged for percutaneous nephrostomy tube by IR on 03/08. Subsequently, patient continued to have gross hematuria require transfusion 2 units on 03/08 first and then again 2 units on March 11. Patient also developed acute renal failure and symptoms of dysphagia Septic shock due to pyelonephritis status post 8 days of Zosyn, now discontinued last vancomycin dose was 03/11 and stopped due to acute renal failure blood cultures negative urine culture negative, currently off of antibiotics. Remains afebrile. Appreciate infectious disease consult = 03/22. Inflammatory signs and symptoms could be secondary to urinary bleeding. ID following. Continue to monitor off of antibiotics. Severe hydronephrosis with UPJ obstruction with left horseshoe kidney status post percutaneous nephrostomy tube placement by IR on 03/08. Subsequent pain in left flank, CT shows localized hemorrhage and inflammation Continue management per urology = 03/[address] today with no change. So with hemorrhage. Urology may plan for cystoscopy. Appreciate assistance. = 03/21. Status post cystoscopy with stenting by urology today. On continuous bladder irrigation. Appreciate assistance. Monitor for improvement in urine output. = 03/22. Creatinine down to 4.7 today, perhaps we will see some improvement after ureteral stenting. Continue to monitor. Acute renal failure likely due to acute tubular necrosis Etiology is possibly due to vancomycin, sepsis and previous obstruction Creatinine worsened following localized hemorrhage, patient placed on dialysis Avoid nephrotoxic agents such as NSAIDs and contrast Patient still has urine output, consider holding Lasix since we have dialysis to remove extra fluid BMP today shows creatinine slightly worse Continue IV fluids as recommended by nephrology Appreciate nephrology consult and management = Continues on dialysis. Hopefully kidney function improves stent placement. Anemia due to acute blood loss status post 4 units of total transfusion Hemoglobin is stable in the 9.6 range continue to monitor CBC and transfuse as needed. = 03/20. Hemoglobin 6.5 from 7.2 yesterday. Transfuse 2 units and monitor. = 03/22. Hemoglobin stable after transfusion at 9.2. Continue to monitor Severe protein calorie malnutrition with albumin 2.0 continue mighty shakes supplements, dietitian consultation Tolerating solid food. Nepro supplement. Dysphagia normals barium swallow EGD showed showed esophageal stricture status post dilation EGD biopsy pending Tolerating solid food Gastroenterology has signed off = we will need to follow-up with GI as outpatient. //Hypertension controlled, much of it may be due to pain continue hydralazine, metoprolol Bilateral pleural effusion with bibasilar atelectasis encourage incentive spirometry use Extra fluid removed with dialysis -Likely secondary to fluid overload. Lasix on hold due to worsening of renal impairment h/o Asthma no acute exacerbation nebs as needed DVT prophylaxis SCDs, chemoprophylaxis contraindicated due to acute hemorrhage, hematuria Discharge Planning: PT recommends rehab. Patient on continuous bladder irrigation. Intra-abdominal bleed. Continue close monitoring. Progress Note: Quality VTE Deep Vein Thrombosis/Pulmonary Embolism Present on Admission: No _ (1) Hypertension Qualifiers: Hypertension type: (2) Sepsis Qualifiers: Sepsis type: (3) Anemia Qualifiers: Anemia type: Iron deficiency anemia type: Vitamin B12 deficiency anemia type: Folate deficiency anemia type: Bone marrow failure anemia type: Hemolytic anemia type: Other causes of anemia: Chronic kidney disease stage :
[2018-03-23] MEDS: Acetaminophen 325 MG Tablet PO PRN ×2 (00:27→18:39)
[2018-03-23 05:36] LABS: Baso # (Auto) 0.1 th/mm3 (0.0-0.2); Baso % (Auto) 0.6 % (0.0-2.0); Eos # (Auto) 0.3 th/mm3 (0.0-0.4); Eos % (Auto) 2.2 % (0.0-4.0); Hematocrit 25.6 % (39.0-51.0); Hemoglobin 8.8 gm/dL (13.0-17.0); Lymph # (Auto) 1.4 th/mm3 (1.0-4.8); Lymph % (Auto) 11.4 % (9.0-44.0); Mean Corpuscular HGB Conc 34.3 % (32.0-36.0); Mean Corpuscular Hemoglobin 29.6 pg (27.0-34.0); Mean Corpuscular Volume 86.3 fL (80.0-100.0); Mean Platelet Volume 7.7 fL (7.0-11.0); Mono # (Auto) 1.2 th/mm3 (0.0-0.9); Mono % (Auto) 9.8 % (0.0-8.0); Neut # (Auto) 9.6 th/mm3 (1.8-7.7); Platelet Count 413 th/mm3 (150-450); Red Blood Count 2.97 mil/mm3 (4.50-5.90); Red Cell Distribution Width 15.2 % (11.6-17.2); White Blood Count 12.7 th/mm3 (4.0-11.0)
[2018-03-23 06:07] LABS: Albumin 2.3 g/dL (3.4-5.0); Calcium 7.9 mg/dL (8.5-10.1); Carbon Dioxide 30.6 meq/L (21.0-32.0); Potassium 3.5 meq/L (3.5-5.1)
[2018-03-23] MEDS: Dextrose 5%/NaCl 0.45% Inj 1,000 ML IV.CONT SCH ×2 (06:08→09:07)
[2018-03-23 06:12] LABS: Phosphorus 4.1 mg/dL (2.5-4.9); Total Protein 5.9 g/dL (6.4-8.2)
[2018-03-23] MEDS: Senna/Docusate Sodium 8.6/50 MG Tablet PO SCH ×2 (08:05→20:50)
[2018-03-23] MEDS: Metoprolol Tartrate 25 MG Tablet PO SCH ×2 (08:10→20:50)
--- NOTE | 2018-03-23 08:48 | P.PNURO ---
Subjective Patient symptoms today: Pt seen and examined. c/o left groin pain. Creatinine at 5.5 and Hgb at 8.8 today. Objective Vital Signs: Vital Signs 03/22/18 09:00 03/22/18 10:00 03/22/18 11:00 Temperature Pulse Rate 74 83 82 Respiratory Rate 16 18 17 Blood Pressure 163/101 H 148/105 H 162/100 H Pulse Oximetry 96 96 97 03/22/18 12:00 03/22/18 13:00 03/22/18 14:00 Temperature 98.3 F Pulse Rate 71 75 81 Respiratory Rate 15 18 17 Blood Pressure 144/98 H 168/96 H 148/99 H Pulse Oximetry 97 97 96 03/22/18 15:00 03/22/18 16:00 03/22/18 17:00 Temperature 98.6 F Pulse Rate 97 H 70 92 H Respiratory Rate 20 18 22 Blood Pressure 156/99 H 166/100 H 172/98 H Pulse Oximetry 03/22/18 18:00 03/22/18 19:00 03/22/18 19:02 Temperature Pulse Rate 78 74 74 Respiratory Rate 18 18 15 Blood Pressure 148/94 H 170/98 H Pulse Oximetry 97 97 98 03/22/18 20:00 03/22/18 20:02 03/22/18 21:22 Temperature 99.3 F Pulse Rate 70 67 84 Respiratory Rate 19 21 25 H Blood Pressure 156/99 H Pulse Oximetry 98 97 03/22/18 21:28 03/22/18 22:00 03/22/18 22:02 Temperature Pulse Rate 69 82 80 Respiratory Rate 25 H 21 21 Blood Pressure 183/102 H 152/97 H Pulse Oximetry 03/22/18 23:00 03/22/18 23:02 03/23/18 00:00 Temperature 100 F H Pulse Rate 68 67 82 Respiratory Rate 18 20 20 Blood Pressure 178/102 H Pulse Oximetry 03/23/18 00:02 03/23/18 01:00 03/23/18 01:02 Temperature Pulse Rate 82 77 80 Respiratory Rate 20 19 22 Blood Pressure 178/110 H 162/100 H Pulse Oximetry 03/23/18 02:00 03/23/18 02:11 03/23/18 03:00 Temperature Pulse Rate 84 79 80 Respiratory Rate 19 17 17 Blood Pressure 167/98 H Pulse Oximetry 03/23/18 03:02 03/23/18 04:00 03/23/18 04:02 Temperature 99 F Pulse Rate 81 75 74 Respiratory Rate 16 17 16 Blood Pressure 159/99 H 154/98 H Pulse Oximetry 03/23/18 05:00 03/23/18 05:02 03/23/18 06:00 Temperature Pulse Rate 79 75 73 Respiratory Rate 16 17 15 Blood Pressure 173/110 H Pulse Oximetry 03/23/18 06:02 Temperature Pulse Rate 71 Respiratory Rate 16 Blood Pressure 178/108 H Pulse Oximetry Intake & Output 03/22/18 03/23/18 03/23/18 18:59 06:59 18:59 Intake Total 1389 / 1389 599 / 599 Output Total 875 / 875 600 / 600 Balance 514 / 514 -1 / -1 Weight 65.9 kg Intake: IV 1269 / 1269 599 / 599 D5W/1/2 NS Inj 1,000 ML @ 50 1269 / 1269 599 / 599 mls/hr IV.CONT .Q20H [facility] Rx#: [id number] Oral 120 / 120 Output: Urine Amount (Catheter) 550 / 550 3-way Urethral 550 / 550 Urine Amount (Stoma) 600 / 600 Nephrostomy Tube Left 600 / 600 Wound Drainage 325 / 325 Left Posterior Chest 325 / 325 Other: Bladder Irrigation Fluid - Amount Instilled 3-way Urethral 6,000 3,300 Bladder Irrigation Fluid - Amount Drained 3-way Urethral 6,550 3,800 Date of Last Bowel Movement 03/21/18 03/22/18 # Bowel Movements 0 1 Result Diagrams: 03/23/18 05:11 03/23/18 05:11 Medications and IVs: Active Medications Generic Name Dose Route Start Last Admin Trade Name Freq PRN Reason Stop Dose Admin Acetaminophen 650 mg 03/20/18 07:59 Tylenol PO Q4H PRN SEE LABEL COMMENTS Acetaminophen 650 mg 03/07/18 23:05 03/23/18 00:27 Tylenol PO 650 mg Q4H PRN Administration Temp > 100.4 Acetaminophen 650 mg 03/17/18 11:03 Tylenol PO UNSCH PRN SEE LABEL COMMENTS Belladonna Alkaloids/Opium 60 mg 03/10/18 15:43 03/21/18 10:40 B & O Supp RECTAL 60 mg Q6HR PRN Administration BLADDER SPASM Diphenhydramine HCl 25 mg 03/20/18 07:59 Benadryl PO Q4H PRN SEE LABEL COMMENTS Diphenhydramine HCl 25 mg 03/17/18 11:03 03/22/18 12:53 Benadryl PO 25 mg UNSCH PRN Administration SEE LABEL COMMENTS Epoetin Brandt 6,000 unit 03/17/18 11:03 03/18/18 12:18 Epogen Inj IV.PUSH 6,000 unit UNSCH PRN Administration SEE LABEL COMMENTS Furosemide 40 mg 03/15/18 09:00 03/18/18 09:53 Lasix Inj IV.PUSH Not Given BID@0900,1800 [facility] Gelatin 1 foam 03/17/18 11:03 Gelfoam 12 Mm/7 Mm Topical TOPICAL PRN PRN help stop bleeding from site Gentamicin Sulfate 20 mg 03/17/18 11:03 03/18/18 12:18 Gentamicin Inj OTHER 20 mg WITH DIALYSIS PRN Administration Dwell Gentamycin Lock Hydralazine HCl 25 mg 03/12/18 19:23 Apresoline PO TID [facility]E Hydralazine HCl 10 mg 03/17/18 18:44 03/17/18 19:59 Apresoline Inj IV.PUSH 10 mg Q30M PRN Administration SBP>180, DBP>110 Hydromorphone HCl 0.5 mg 03/18/18 10:15 03/22/18 07:57 Dilaudid Pf Inj IV.PUSH 0.5 mg Q4H PRN Administration BREAKTHROUGH PAIN Dextrose/Sodium Chloride 1,000 mls @ 50 mls/hr 03/15/18 17:06 03/23/18 06:08 D5w/1/2 Ns Inj IV.CONT 50 mls/hr .Q20H [facility] Infusion Albumin Human 100 mls @ 60 mls/hr 03/17/18 11:03 Flexbumin 25% Inj IV.SIG WITH DIALYSIS PRN hypotension / volume replace Sodium Chloride 1,000 mls @ 0 mls/hr 03/17/18 11:03 Ns Inj OTHER .Q0M PRN for prime and rinse back As Directed Sodium Chloride 1,000 mls @ 200 mls/hr 03/17/18 11:03 Ns Inj OTHER .Q5H PRN for dialyzer flush PRN Sodium Chloride 1,000 mls @ 0 mls/hr 03/17/18 11:03 Ns Inj IV.CONT .Q0M PRN hypotension / volume replace As Directed Mannitol 12.5 gm 03/17/18 11:03 Mannitol Inj IV.PUSH UNSCH PRN hypotension / volume replace Metoprolol Tartrate 12.5 mg 03/11/18 09:00 03/23/18 08:10 Lopressor PO 12.5 mg BID [facility]LOE Administration Miscellaneous 1 each 03/11/18 10:00 03/22/18 08:00 Pill Splitter OTHER 1 each UNSCH [facility]E Administration Naloxone HCl 0.4 mg 03/17/18 16:50 Narcan Inj IV.PUSH UNSCH PRN SEE LABEL COMMENTS Nitroglycerin 0.4 mg 03/17/18 11:03 Nitrostat Sl SL Q5M PRN CHEST PAIN Ondansetron HCl 4 mg 03/07/18 23:05 03/19/18 08:19 Zofran Inj IV.PUSH 4 mg Q6H PRN Administration NAUSEA OR VOMITING Ondansetron HCl 4 mg 03/17/18 11:03 Zofran Inj IV.PUSH UNSCH PRN NAUSEA OR VOMITING Oxybutynin Chloride 5 mg 03/17/18 21:00 03/23/18 08:05 Ditropan PO 5 mg BID CHLOE Administration Oxycodone HCl 5 mg 03/18/18 10:16 03/21/18 21:20 Roxicodone PO 5 mg Q4H PRN Administration Acute Pain 1-10 Pantoprazole Sodium 40 mg 03/13/18 15:45 03/23/18 08:04 Protonix PO 40 mg DAILY [facility]E Administration Polyethylene Glycol 17 gm 03/09/18 14:24 03/09/18 21:14 Miralax PO 17 gm DAILY PRN Administration Moderate-severe constipation Senna/Docusate Sodium 1 tab 03/09/18 21:00 03/23/18 08:05 Allyssa-Colace PO 1 tab BID [facility]LOE Administration Sodium Chloride 2 ml 03/08/18 09:00 03/23/18 08:05 Ns Flush IV.FLUSH 2 ml BID [facility] Administration Sodium Chloride 2 ml 03/07/18 23:05 03/20/18 21:44 Ns Flush IV.FLUSH 2 ml PRN PRN Administration FLUSH AFTER USING IV ACCESS Sodium Chloride 5 ml 03/17/18 11:03 Ns Flush IV.FLUSH PRN PRN flush each lumen during HD Objective Remarks: CV: sinus tach Abd:soft, mild distension; no rebound Price: old dark blood Ext: neg C/C/E 03/10 CV: sinus tach Abd:soft,less tenderness and distension Price: blood tinged PCNT: bloody 03/10 16:00: SP pains. Bladder not palpable. No SP tenderness. Abd: now non tender LLQ. Bloody urine via nephrostomy, no clots. Bloody urine via price catheter, no clots. 03/11: Scant urine output via Nephrostomy tube. It may not be draining, will wait and see. Fairly good urine output via price catheter. Urine dark blood tinged, no clots. BP varies high to normal, Pulse varies, temp 99. 03/12: See "Subjective" for the Objective. Suspect Vancomycin toxicity causing deterioration in kidney function and decreased urine output. N tube draining dark burgundy urine. PLAN: Dr. Little following the labs. N tube irrigation by IR if needed. 03/13 Abd:soft,nt,nd Left PNCT with blood Price: hematuria 03/14 Abd:soft,nt,nd Left PCNT: bloody Price: blood tinged 03/15 Abd:soft,nt,nd Left PCNT: bloody Price: blood tinged 03/16 Abd:soft,nt,nd Left PCNT: bloody Price: blood tinged 03/17 Abd:soft,nt,nd Left PCNT: bloody Price: blood tinged 03/20 Abd:soft,nt,nd Left PCNT: bloody Price: blood tinged 03/22 Abd:soft,nt,nd Left PCNT: blood tinged Price: clear on slow CBI 03/23 Abd:soft,nt,nd Price: urine clearing on CBI Left PCNT: urine dark; bag leaking Assessment and Plan - Assessment (1) Sepsis due to urinary tract infection Code(s): A41.9 - Sepsis, unspecified organism; N39.0 - Urinary tract infection, site not specified Status: Acute Onset Date: ~03/07/18 (2) Hydronephrosis of left kidney Code(s): N13.30 - Unspecified hydronephrosis Status: Chronic (3) 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 Back up plan is to try to place a urinary stent cystoscopically in the OR. However, there is a great possibility that the presumed UPJ stenosis will prevent passage of guide wires and stent. 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 Discussed with Dr. Little. 03/11: N tube may or may not be draining. Sepsis improving. Still having bladder spasms, receiving Morphine. PLAN: Continue same. 03/12 See "Subjective", "Objective". 03/13 37 y.o male with sepsis and h/o horseshoe kidney s/p PCNT placement with hematuria Continue supportive measures for now Transfuse PRBC's today if repeat Hgb is below 8 Monitor u/o; avoid nephrotoxins Will follow. 03/14 37 y.o male with sepsis and horseshoe kidney s/p PCNT with hematuria and ARF Hgb stablized at 8.3 this AM. Creatinine rising to 5.7; u/o dropping Await Nephrology input Monitor u/o Continue conservative measures for now. 03/15 37 y.o male with sepsis and horseshoe kidney s/p PCNT with hematuria and worsening ARF. Creatinine up to 7.2 up from 5.7. Hgb down to 7.8. Will transfuse 1 unit PRBC's. Await Nephrology input Monitor u/o. 03/16 37 y.o male with sepsis and horseshoe kidney s/p PCNT with hematuria and worsening ARF probably due to ATN Continue conservative management from standpoint. No evidence of active bleeding. Will follow. 03/17 37 y.o male with sepsis s/p PCNT with hematuria and ARF Maintain price catheter- urine is clearing and less bloody Continue conservative measures. 03/20 37 y.o male with sepsis s/p PCNT with hematuria and ARF Transfuse [address] scan today Hold Heparin with dialysis. 03/22 37 y.o male s/p cysto with b/l JJ stent insertion with clot evacuation Maintain slow CBI Follow creatinine. Large amount of clot in left collecting system s/p PCNT Continue dialysis for now. Hold heparin with dialysis. Once urine clears will remove PCNT. 03/23 37 y.o male s/p cysto with b/l JJ stent insertion with clot evacuation Maintain slow CBI Continue conservative measures for now Follow labs. B&O suppository for bladder spasm.
[2018-03-23] MEDS: Belladonna Alkaloid/Opium 60 MG Supp RECTAL PRN (09:08)
[2018-03-23] MEDS: HYDROmorphone PF Inj 0.5 MG/0.5 ML Syringe IV.PUSH PRN (12:53)
--- NOTE | 2018-03-23 15:08 | P.PNNP ---
Subjective Interval history: Seen in AM. No shortness of breath, chest pain, nausea, or vomiting. Poor appetite and left groin pain, shaking. Hemodialysis today. Creatinine at 5.5. <Wandy Pathak - Last Filed: 03/23/18 15:09> Physical Exam Vital signs: Vital Signs 03/22/18 16:00 03/22/18 17:00 03/22/18 18:00 Temperature 98.6 F Pulse Rate 70 92 H 78 Respiratory Rate 18 22 18 Blood Pressure 166/100 H 172/98 H 148/94 H Pulse Oximetry 97 03/22/18 19:00 03/22/18 19:02 03/22/18 20:00 Temperature 99.3 F Pulse Rate 74 74 70 Respiratory Rate 18 15 19 Blood Pressure 170/98 H Pulse Oximetry 97 98 98 03/22/18 20:02 03/22/18 21:22 03/22/18 21:28 Temperature Pulse Rate 67 84 69 Respiratory Rate 21 25 H 25 H Blood Pressure 156/99 H 183/102 H Pulse Oximetry 97 03/22/18 22:00 03/22/18 22:02 03/22/18 23:00 Temperature Pulse Rate 82 80 68 Respiratory Rate 21 21 18 Blood Pressure 152/97 H Pulse Oximetry 03/22/18 23:02 03/23/18 00:00 03/23/18 00:02 Temperature 100 F H Pulse Rate 67 82 82 Respiratory Rate 20 20 20 Blood Pressure 178/102 H 178/110 H Pulse Oximetry 03/23/18 01:00 03/23/18 01:02 03/23/18 02:00 Temperature Pulse Rate 77 80 84 Respiratory Rate 19 22 19 Blood Pressure 162/100 H Pulse Oximetry 03/23/18 02:11 03/23/18 03:00 03/23/18 03:02 Temperature Pulse Rate 79 80 81 Respiratory Rate 17 17 16 Blood Pressure 167/98 H 159/99 H Pulse Oximetry 03/23/18 04:00 03/23/18 04:02 03/23/18 05:00 Temperature 99 F Pulse Rate 75 74 79 Respiratory Rate 17 16 16 Blood Pressure 154/98 H Pulse Oximetry 03/23/18 05:02 03/23/18 06:00 03/23/18 06:02 Temperature Pulse Rate 75 73 71 Respiratory Rate 17 15 16 Blood Pressure 173/110 H 178/108 H Pulse Oximetry 03/23/18 07:00 03/23/18 07:02 03/23/18 08:00 Temperature 98.6 F Pulse Rate 73 80 90 Respiratory Rate 16 16 36 H Blood Pressure 178/104 H Pulse Oximetry 03/23/18 08:02 03/23/18 09:00 03/23/18 09:02 Temperature Pulse Rate 69 98 H 84 Respiratory Rate 15 34 H 35 H Blood Pressure 183/109 H 188/103 H Pulse Oximetry 03/23/18 09:30 03/23/18 09:45 03/23/18 10:00 Temperature Pulse Rate 70 65 80 Respiratory Rate 16 12 30 H Blood Pressure 177/102 H 173/108 H 169/108 H Pulse Oximetry 03/23/18 10:15 03/23/18 10:30 03/23/18 10:45 Temperature Pulse Rate 58 L 69 55 L Respiratory Rate 14 13 14 Blood Pressure 178/108 H 170/100 H 182/100 H Pulse Oximetry 03/23/18 11:00 03/23/18 11:15 03/23/18 11:17 Temperature Pulse Rate 54 L 56 L 53 L Respiratory Rate 13 9 L 9 L Blood Pressure 177/103 H 197/107 H 182/103 H Pulse Oximetry 03/23/18 11:30 03/23/18 11:45 03/23/18 12:00 Temperature Pulse Rate 57 L 67 55 L Respiratory Rate 11 L 14 14 Blood Pressure 187/108 H 189/105 H 175/100 H Pulse Oximetry 03/23/18 12:15 03/23/18 12:30 03/23/18 12:45 Temperature 98.6 F Pulse Rate 54 L 57 L 72 Respiratory Rate 21 27 H 22 Blood Pressure 189/102 H 174/104 H 165/101 H Pulse Oximetry 03/23/18 13:00 03/23/18 13:08 Temperature Pulse Rate 75 70 Respiratory Rate 18 24 Blood Pressure 149/91 H 146/89 H Pulse Oximetry Intake & Output 03/22/18 03/23/18 03/23/18 18:59 06:59 18:59 Intake Total 1389 / 1389 599 / 599 132 / 132 Output Total 875 / 875 600 / 600 2500 / 2500 Balance 514 / 514 -1 / -1 -2368 / -2368 Weight 65.9 kg Intake: IV 1269 / 1269 599 / 599 132 / 132 D5W/1/2 NS Inj 1,000 ML @ 50 1269 / 1269 599 / 599 132 / 132 mls/hr IV.CONT .Q20H [facility] Rx#: [id number] Oral 120 / 120 Output: Hemodialysis Amount 2500 / 2500 Urine Amount (Catheter) 550 / 550 3-way Urethral 550 / 550 Urine Amount (Stoma) 600 / 600 Nephrostomy Tube Left 600 / 600 Wound Drainage 325 / 325 Left Posterior Chest 325 / 325 Other: Bladder Irrigation Fluid - Amount Instilled 3-way Urethral 6,000 3,300 Bladder Irrigation Fluid - Amount Drained 3-way Urethral 6,550 3,800 Date of Last Bowel Movement 03/21/18 03/22/18 03/22/18 # Bowel Movements 0 1 Narrative: GENERAL: Alert and oriented. Thin SKIN: Warm and dry. NECK: Supple, trachea midline. No JVD CARDIOVASCULAR: Tachycardia. Regular rate and rhythm without murmurs, gallops, or rubs. right IJ vas cath. RESPIRATORY: Breath sounds equal bilaterally. No accessory muscle use. GASTROINTESTINAL: Abdomen soft, non-tender, nondistended. +BS GI: Left nephrostomy tube and indwelling Price catheter/three way with irrigation MUSCULOSKELETAL: No cyanosis, or edema. . - Urinary Catheter Management Indwelling Urethral Catheter Cath placed during this visit: yes Reason for continuing: Gross Hematuria Insertion date: 03/21/18 Insertion time: 10:03 3-way Urethral Cath placed during this visit: yes Reason for continuing: Other continuation reason Insertion date: 03/21/18 <Wandy Pathak - Last Filed: 03/23/18 15:09> Vital signs: Vital Signs 03/24/18 22:00 03/24/18 23:00 03/25/18 00:00 Temperature Pulse Rate 78 88 73 Respiratory Rate 19 15 16 Blood Pressure 161/98 H 150/95 H 155/95 H Pulse Oximetry 98 96 97 03/25/18 01:00 03/25/18 02:00 03/25/18 02:48 Temperature Pulse Rate 98 H 76 78 Respiratory Rate 26 H 17 16 Blood Pressure 150/103 H 170/104 H 164/110 H Pulse Oximetry 98 98 98 03/25/18 03:00 03/25/18 04:00 03/25/18 05:00 Temperature Pulse Rate 76 83 79 Respiratory Rate 18 15 16 Blood Pressure 157/102 H 144/92 H 163/90 H Pulse Oximetry 97 97 96 03/25/18 06:00 03/25/18 07:00 03/25/18 08:00 Temperature 98.7 F Pulse Rate 81 74 80 Respiratory Rate 17 17 21 Blood Pressure 156/98 H 155/99 H 160/96 H Pulse Oximetry 96 97 97 03/25/18 09:00 03/25/18 10:00 03/25/18 11:00 Temperature Pulse Rate 98 H 83 89 Respiratory Rate 23 16 18 Blood Pressure 149/98 H 165/96 H 139/90 Pulse Oximetry 96 97 97 03/25/18 12:00 03/25/18 13:00 03/25/18 14:00 Temperature 98.3 F Pulse Rate 96 H 85 84 Respiratory Rate 15 17 21 Blood Pressure 129/85 130/89 150/95 H Pulse Oximetry 98 98 98 03/25/18 15:00 03/25/18 16:00 03/25/18 17:00 Temperature 98.5 F Pulse Rate 90 77 78 Respiratory Rate 18 24 20 Blood Pressure 154/98 H 169/99 H 153/99 H Pulse Oximetry 97 99 98 03/25/18 18:00 Temperature Pulse Rate 85 Respiratory Rate 17 Blood Pressure 151/94 H Pulse Oximetry 98 Intake & Output 03/25/18 03/25/18 03/26/18 06:59 18:59 06:59 Intake Total 1680 / 1680 450 / 450 Output Total 1100 / 1100 1025 / 1025 Balance 580 / 580 -575 / -575 Weight 63.1 kg Intake: IV 1000 / 1000 D5W/1/2 NS Inj 1,000 ML @ 50 1000 / 1000 mls/hr IV.CONT .Q20H [facility] Rx#: [id number] Oral 400 / 400 450 / 450 Bladder Irrigation Fluid - 280 / 280 Amount Retained 3-way Urethral 280 / 280 Output: Emesis 100 / 100 Urine Amount (Catheter) 200 / 200 3-way Urethral 200 / 200 Urine Amount (Stoma) 1000 / 1000 825 / 825 Nephrostomy Tube Left 1000 / 1000 825 / 825 Other: Bladder Irrigation Fluid - Amount Instilled 3-way Urethral 1,500 180 Bladder Irrigation Fluid - Amount Drained 3-way Urethral 1,280 Date of Last Bowel Movement 03/24/18 03/24/18 # Emes[place] 1 - Urinary Catheter Management Indwelling Urethral Catheter Cath placed during this visit: no 3-way Urethral Cath placed during this visit: no <Jorge Luis Scott - Last Filed: 03/25/18 21:02> Assessment and Plan - Assessment (1) Acute kidney injury Code(s): N17.9 - Acute kidney failure, unspecified Status: Acute Plan: PARISH possible ATN from vancomycin toxicity or post renal. Repeat Renal ultrasound with known horseshoe kidney. There is no hydronephrosis on the right. There is moderate dilatation of the collecting system on the left with very poor delineation of the renal cortex. There is a 4 cm complex fluid collection around the nephrostomy. There is moderate free fluid present in the pelvis. Continue to monitor progress follow BMP Avoid nephrotoxins including IV contrast and NSAIDS Started HD on 03/17, vas cath 03/17 S/p cysto with stent placement Three way price placed with continuos irrigation. Seen during HD, 3 K bath with plan to remove 2.5 liters of fluid Will continue to follow lab, urinary output, and watch for renal recovery. Creatinine continues to remain elevated at 5.5, non oliguric. Renal panel in AM (2) Hypertension Code(s): I10 - Essential (primary) hypertension Status: Acute Plan: Elevated, hydralazine resumed. (3) Hydronephrosis of left kidney Code(s): N13.30 - Unspecified hydronephrosis Status: Chronic Onset Date: Unknown Plan: Cysto with stent placement. (4) Anemia Code(s): D64.9 - Anemia, unspecified Status: Acute Plan: HGB at 8.8, Transfused PRBC 03/21 Transfuse for HGB less than 7.0 Epogen with dialysis <Wandy Pathak - Last Filed: 03/23/18 15:09> - Assessment (1) Acute kidney injury Code(s): N17.9 - Acute kidney failure, unspecified Status: Acute Plan: Patient seen and examined, agree with above. Continue HD as needed. Watch for renal recovery. On CBI, Urology following. (2) Hypertension Code(s): I10 - Essential (primary) hypertension Status: Acute (3) Hydronephrosis of left kidney Code(s): N13.30 - Unspecified hydronephrosis Status: Chronic Onset Date: Unknown (4) Anemia Code(s): D64.9 - Anemia, unspecified Status: Acute <Jorge Luis Scott - Last Filed: 03/25/18 21:02>
--- NOTE | 2018-03-23 18:15 | P.PNIM ---
Subjective Interval history: Patient says he is feeling right. Denies any chest pain shortness of breath. Reports abdominal pain is improving. Had some bladder spasms this morning which appears to be improving after belladonna suppository. Positive bowel movement last night Physical Exam Vital signs: Vital Signs 03/22/18 19:00 03/22/18 19:02 03/22/18 20:00 Temperature 99.3 F Pulse Rate 74 74 70 Respiratory Rate 18 15 19 Blood Pressure 170/98 H Pulse Oximetry 97 98 98 03/22/18 20:02 03/22/18 21:22 03/22/18 21:28 Temperature Pulse Rate 67 84 69 Respiratory Rate 21 25 H 25 H Blood Pressure 156/99 H 183/102 H Pulse Oximetry 97 03/22/18 22:00 03/22/18 22:02 03/22/18 23:00 Temperature Pulse Rate 82 80 68 Respiratory Rate 21 21 18 Blood Pressure 152/97 H Pulse Oximetry 03/22/18 23:02 03/23/18 00:00 03/23/18 00:02 Temperature 100 F H Pulse Rate 67 82 82 Respiratory Rate 20 20 20 Blood Pressure 178/102 H 178/110 H Pulse Oximetry 03/23/18 01:00 03/23/18 01:02 03/23/18 02:00 Temperature Pulse Rate 77 80 84 Respiratory Rate 19 22 19 Blood Pressure 162/100 H Pulse Oximetry 03/23/18 02:11 03/23/18 03:00 03/23/18 03:02 Temperature Pulse Rate 79 80 81 Respiratory Rate 17 17 16 Blood Pressure 167/98 H 159/99 H Pulse Oximetry 03/23/18 04:00 03/23/18 04:02 03/23/18 05:00 Temperature 99 F Pulse Rate 75 74 79 Respiratory Rate 17 16 16 Blood Pressure 154/98 H Pulse Oximetry 03/23/18 05:02 03/23/18 06:00 03/23/18 06:02 Temperature Pulse Rate 75 73 71 Respiratory Rate 17 15 16 Blood Pressure 173/110 H 178/108 H Pulse Oximetry 03/23/18 07:00 03/23/18 07:02 03/23/18 08:00 Temperature 98.6 F Pulse Rate 73 80 90 Respiratory Rate 16 16 36 H Blood Pressure 178/104 H Pulse Oximetry 03/23/18 08:02 03/23/18 09:00 02/14/19 09:02 Temperature Pulse Rate 69 98 H 84 Respiratory Rate 15 34 H 35 H Blood Pressure 183/109 H 188/103 H Pulse Oximetry 03/23/18 09:30 03/23/18 09:45 03/23/18 10:00 Temperature Pulse Rate 70 65 80 Respiratory Rate 16 12 30 H Blood Pressure 177/102 H 173/108 H 169/108 H Pulse Oximetry 03/23/18 10:15 03/23/18 10:30 03/23/18 10:45 Temperature Pulse Rate 58 L 69 55 L Respiratory Rate 14 13 14 Blood Pressure 178/108 H 170/100 H 182/100 H Pulse Oximetry 03/23/18 11:00 03/23/18 11:15 03/23/18 11:17 Temperature Pulse Rate 54 L 56 L 53 L Respiratory Rate 13 9 L 9 L Blood Pressure 177/103 H 197/107 H 182/103 H Pulse Oximetry 03/23/18 11:30 03/23/18 11:45 03/23/18 12:00 Temperature Pulse Rate 57 L 67 55 L Respiratory Rate 11 L 14 14 Blood Pressure 187/108 H 189/105 H 175/100 H Pulse Oximetry 03/23/18 12:15 03/23/18 12:30 03/23/18 12:45 Temperature 98.6 F Pulse Rate 54 L 57 L 72 Respiratory Rate 21 27 H 22 Blood Pressure 189/102 H 174/104 H 165/101 H Pulse Oximetry 03/23/18 13:00 03/23/18 13:08 03/23/18 14:00 Temperature Pulse Rate 75 70 104 H Respiratory Rate 18 24 22 Blood Pressure 149/91 H 146/89 H 141/90 H Pulse Oximetry 03/23/18 15:00 03/23/18 16:00 Temperature 98 F Pulse Rate 89 92 H Respiratory Rate 19 19 Blood Pressure 151/93 H Pulse Oximetry Intake & Output 03/22/18 03/23/18 03/23/18 18:59 06:59 18:59 Intake Total 1389 / 1389 599 / 599 132 / 132 Output Total 875 / 875 600 / 600 2500 / 2500 Balance 514 / 514 -1 / -1 -2368 / -2368 Weight 65.9 kg Intake: IV 1269 / 1269 599 / 599 132 / 132 D5W/1/2 NS Inj 1,000 ML @ 50 1269 / 1269 599 / 599 132 / 132 mls/hr IV.CONT .Q20H [facility] Rx#: [id number] Oral 120 / 120 Output: Hemodialysis Amount 2500 / 2500 Urine Amount (Catheter) 550 / 550 3-way Urethral 550 / 550 Urine Amount (Stoma) 600 / 600 Nephrostomy Tube Left 600 / 600 Wound Drainage 325 / 325 Left Posterior Chest 325 / 325 Other: Bladder Irrigation Fluid - Amount Instilled 3-way Urethral 6,000 3,300 Bladder Irrigation Fluid - Amount Drained 3-way Urethral 6,550 3,800 Date of Last Bowel Movement 03/21/18 03/22/18 03/22/18 # Bowel Movements 0 1 Narrative: GENERAL: Patient sitting up in bed. Appears comfortable today.. Alert. CARDIOVASCULAR: Regular rate and rhythm without murmurs, gallops, or rubs. RESPIRATORY: Breath sounds equal bilaterally. No accessory muscle use. GASTROINTESTINAL: Abdomen soft, non-tender, nondistended. Left flank with percutaneous nephrostomy tube in place as before. Urine with hematuria, no clots, much more translucent than yesterday. [place] undergoing irrigation with light hematuria today. MUSCULOSKELETAL: No cyanosis, or edema. BACK: Nontender without obvious deformity. No CVA tenderness. Urinary Catheter Management Indwelling Urethral Catheter: Cath placed during this visit: yes Reason for continuing: Gross Hematuria Insertion date: 03/21/18 Insertion time: 10:03 3-way Urethral: Cath placed during this visit: yes Reason for continuing: Other continuation reason Insertion date: 03/21/18 Results Labs CBC & Chem 7: 03/23/18 05:11 03/23/18 05:11 Labs: Microbiology 03/21/18 14:05 Clean Catch Urine Urine Culture - Final No growth in 48 hours Assessment and Plan (1) Acute kidney injury: Code(s): N17.9 - Acute kidney failure, unspecified Status: Acute (2) Hypertension: Code(s): I10 - Essential (primary) hypertension Status: Acute (3) Hydronephrosis of left kidney: Code(s): N13.30 - Unspecified hydronephrosis Status: Chronic Onset Date: Unknown (4) Anemia: Code(s): D64.9 - Anemia, unspecified Status: Acute Plan 37-year-old male presents with complaint of abdominal pain hematuria found to be septic due to pyelonephritis with 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 He was admitted and seen by urology who arranged for percutaneous nephrostomy tube by IR on 03/08. Subsequently, patient continued to have gross hematuria require transfusion 2 units on 03/08 first and then again 2 units on March 11. Patient also developed acute renal failure and symptoms of dysphagia Septic shock due to pyelonephritis status post 8 days of Zosyn, now discontinued last vancomycin dose was 03/11 and stopped due to acute renal failure blood cultures negative urine culture negative, currently off of antibiotics. Remains afebrile. Appreciate infectious disease consult = 03/22. Inflammatory signs and symptoms could be secondary to urinary bleeding. ID following. Continue to monitor off of antibiotics. Severe hydronephrosis with UPJ obstruction with left horseshoe kidney status post percutaneous nephrostomy tube placement by IR on 03/08. Subsequent pain in left flank, CT shows localized hemorrhage and inflammation Continue management per urology = 03/[address] today with no change. So with hemorrhage. Urology may plan for cystoscopy. Appreciate assistance. = 03/21. Status post cystoscopy with stenting by urology today. On continuous bladder irrigation. Appreciate assistance. Monitor for improvement in urine output. = 03/22. Creatinine down to 4.7 today, perhaps we will see some improvement after ureteral stenting. Continue to monitor. = 03/23. No appreciable improvement in renal function. Creatinine up to 5.5 today. Continue dialysis. Urology following. Appreciate assistance. Acute renal failure likely due to acute tubular necrosis Etiology is possibly due to vancomycin, sepsis and previous obstruction Creatinine worsened following localized hemorrhage, patient placed on dialysis Avoid nephrotoxic agents such as NSAIDs and contrast Patient still has urine output, consider holding Lasix since we have dialysis to remove extra fluid BMP today shows creatinine slightly worse Continue IV fluids as recommended by nephrology Appreciate nephrology consult and management = Continues on dialysis. Hopefully kidney function improves stent placement. = Continues on dialysis. Monitor for improvement. Anemia due to acute blood loss status post 4 units of total transfusion Hemoglobin is stable in the 9.6 range continue to monitor CBC and transfuse as needed. = 03/20. Hemoglobin 6.5 from 7.2 yesterday. Transfuse 2 units and monitor. = 03/22. Hemoglobin stable after transfusion at 9.2. Continue to monitor = 03/23. Hemoglobin 8.8. Hematuria improving. Continue to monitor. Severe protein calorie malnutrition with albumin 2.0 continue mighty shakes supplements, dietitian consultation Tolerating solid food. Nepro supplement. Dysphagia normals barium swallow EGD showed showed esophageal stricture status post dilation EGD biopsy pending Tolerating solid food Gastroenterology has signed off = we will need to follow-up with GI as outpatient. //Hypertension controlled, much of it may be due to pain continue hydralazine, metoprolol = Blood pressure acceptable. Continue to monitor. Bilateral pleural effusion with bibasilar atelectasis encourage incentive spirometry use Extra fluid removed with dialysis -Likely secondary to fluid overload. Lasix on hold due to worsening of renal impairment. = 03/23 we will repeat chest x-ray tomorrow morning. H/o Asthma no acute exacerbation nebs as needed DVT prophylaxis SCDs, chemoprophylaxis contraindicated due to acute hemorrhage, hematuria Discharge Planning: PT recommends rehab. Patient on continuous bladder irrigation. Intra-abdominal bleed. Dialysis. Continue close monitoring. Progress Note: Quality VTE Deep Vein Thrombosis/Pulmonary Embolism Present on Admission: No _ (1) Hypertension Qualifiers: Hypertension type: (2) Anemia Qualifiers: Anemia type: Iron deficiency anemia type: Vitamin B12 deficiency anemia type: Folate deficiency anemia type: Bone marrow failure anemia type: Hemolytic anemia type: Other causes of anemia: Chronic kidney disease stage :
--- NOTE | 2018-03-24 06:12 | XR ---
EXAM DATE: 03/24/2018 3:47 AM EST AGE/SEX: 37 years / Male INDICATIONS: Pleural effusion. CLINICAL DATA: This is the patient's initial encounter. Patient reports that signs and symptoms have been present for 1 day and indicates a pain score of 0/10. MEDICAL/SURGICAL HISTORY: . Asthma. Seizures. Horseshoe kidney, pneumothorax. . Left nephrosto my tube. COMPARISON: [facility], [facility]YS[facility] , 03/17/2018. . FINDINGS: Right neck dialysis catheter descends into the SVC. There is mild diffuse interstitial prominence wit hout evidence of focal alveolar consolidation. Likely tiny bilateral effusions. Cardiac contours are satisfactory for technique and projection. CONCLUSION: Small bilateral effusions. Diffuse interstitial prominence. Electronically signed by: Hema Gonzales MD Board Certified Radiologist 03/24/2018 6:10 AM EST
[2018-03-24 06:18] LABS: Baso # (Auto) 0.1 th/mm3 (0.0-0.2); Baso % (Auto) 0.9 % (0.0-2.0); Eos # (Auto) 0.2 th/mm3 (0.0-0.4); Eos % (Auto) 1.5 % (0.0-4.0); Hematocrit 29.1 % (39.0-51.0); Hemoglobin 9.7 gm/dL (13.0-17.0); Lymph # (Auto) 1.2 th/mm3 (1.0-4.8); Mean Corpuscular HGB Conc 33.1 % (32.0-36.0); Mean Corpuscular Hemoglobin 29.1 pg (27.0-34.0); Mean Corpuscular Volume 87.7 fL (80.0-100.0); Mean Platelet Volume 7.7 fL (7.0-11.0); Mono # (Auto) 1.3 th/mm3 (0.0-0.9); Mono % (Auto) 10.2 % (0.0-8.0); Neut % (Auto) 78.4 % (16.0-70.0); Platelet Count 417 th/mm3 (150-450); Red Blood Count 3.32 mil/mm3 (4.50-5.90); Red Cell Distribution Width 15.9 % (11.6-17.2); White Blood Count 12.8 th/mm3 (4.0-11.0)
[2018-03-24 06:56] LABS: Calcium 8.3 mg/dL (8.5-10.1); Carbon Dioxide 32.1 meq/L (21.0-32.0); Potassium 3.7 meq/L (3.5-5.1)
[2018-03-24] MEDS: Senna/Docusate Sodium 8.6/50 MG Tablet PO SCH ×2 (09:25→22:00)
[2018-03-24] MEDS: Metoprolol Tartrate 25 MG Tablet PO SCH ×2 (09:25→21:59)
[2018-03-24] MEDS: Dextrose 5%/NaCl 0.45% Inj 1,000 ML IV.CONT SCH ×2 (09:28→22:10)
--- NOTE | 2018-03-24 09:58 | P.PNURO ---
Subjective Patient symptoms today: Pt seen and examined. Creatinine improved after having dialysis yesterday. Hgb up to 9.7. HD removed 1.5 L yesterday. Objective Vital Signs: Vital Signs 03/23/18 10:00 03/23/18 10:15 03/23/18 10:30 Temperature Pulse Rate 80 58 L 69 Respiratory Rate 30 H 14 13 Blood Pressure 169/108 H 178/108 H 170/100 H Pulse Oximetry 03/23/18 10:45 03/23/18 11:00 03/23/18 11:15 Temperature Pulse Rate 55 L 54 L 56 L Respiratory Rate 14 13 9 L Blood Pressure 182/100 H 177/103 H 197/107 H Pulse Oximetry 03/23/18 11:17 03/23/18 11:30 03/23/18 11:45 Temperature Pulse Rate 53 L 57 L 67 Respiratory Rate 9 L 11 L 14 Blood Pressure 182/103 H 187/108 H 189/105 H Pulse Oximetry 03/23/18 12:00 03/23/18 12:15 03/23/18 12:30 Temperature 98.6 F Pulse Rate 55 L 54 L 57 L Respiratory Rate 14 21 27 H Blood Pressure 175/100 H 189/102 H 174/104 H Pulse Oximetry 03/23/18 12:45 03/23/18 13:00 03/23/18 13:08 Temperature Pulse Rate 72 75 70 Respiratory Rate 22 18 24 Blood Pressure 165/101 H 149/91 H 146/89 H Pulse Oximetry 03/23/18 14:00 03/23/18 15:00 03/23/18 16:00 Temperature 98 F Pulse Rate 104 H 89 92 H Respiratory Rate 22 19 19 Blood Pressure 141/90 H 151/93 H Pulse Oximetry 03/23/18 17:00 03/23/18 18:00 03/23/18 19:00 Temperature Pulse Rate 87 83 81 Respiratory Rate 16 18 18 Blood Pressure 151/96 H 159/98 H 170/102 H Pulse Oximetry 03/23/18 20:00 03/23/18 21:00 03/23/18 22:00 Temperature 99.3 F Pulse Rate 89 80 78 Respiratory Rate 16 18 16 Blood Pressure 148/98 H 154/95 H 170/102 H Pulse Oximetry 100 03/23/18 23:00 03/24/18 00:00 03/24/18 01:00 Temperature 99.2 F Pulse Rate 71 70 77 Respiratory Rate 16 16 19 Blood Pressure 182/95 H 149/102 H 153/102 H Pulse Oximetry 03/24/18 02:00 03/24/18 03:00 03/24/18 04:00 Temperature Pulse Rate 72 80 77 Respiratory Rate 21 16 20 Blood Pressure 171/99 H 153/103 H 162/104 H Pulse Oximetry 03/24/18 05:00 03/24/18 06:00 03/24/18 07:00 Temperature Pulse Rate 80 76 82 Respiratory Rate 19 19 20 Blood Pressure 172/100 H 165/95 H 169/102 H Pulse Oximetry Intake & Output 03/23/18 03/24/18 03/24/18 18:59 06:59 18:59 Intake Total 792 / 792 1000 / 1000 Output Total 3050 / 3050 350 / 350 Balance -2258 / -2258 650 / 650 Weight 64.1 kg Intake: IV 132 / 132 1000 / 1000 D5W/1/2 NS Inj 1,000 ML @ 50 132 / 132 1000 / 1000 mls/hr IV.CONT .Q20H [facility] Rx#: [id number] Oral 660 / 660 Output: Hemodialysis Amount 2500 / 2500 Urine Amount (Stoma) 350 / 350 Nephrostomy Tube Left 350 / 350 Wound Drainage 550 / 550 Left Posterior Chest 550 / 550 Other: Bladder Irrigation Fluid - Amount Instilled 3-way Urethral 2,600 2,500 Bladder Irrigation Fluid - Amount Drained 3-way Urethral 2,600 2,450 Date of Last Bowel Movement 03/22/18 03/22/18 Result Diagrams: 03/24/18 06:07 03/24/18 06:07 Imaging: Impressions Chest X-Ray 03/24/18 06:00 CONCLUSION: Small bilateral effusions. Diffuse interstitial prominence. Medications and IVs: Active Medications Generic Name Dose Route Start Last Admin Trade Name Freq PRN Reason Stop Dose Admin Acetaminophen 650 mg 03/20/18 07:59 Tylenol PO Q4H PRN SEE LABEL COMMENTS Acetaminophen 650 mg 03/07/18 23:05 03/23/18 18:39 Tylenol PO 650 mg Q4H PRN Administration Temp > 100.4 Acetaminophen 650 mg 03/17/18 11:03 Tylenol PO UNSCH PRN SEE LABEL COMMENTS Belladonna Alkaloids/Opium 60 mg 03/10/18 15:43 03/23/18 09:08 B & O Supp RECTAL 60 mg Q6HR PRN Administration BLADDER SPASM Diphenhydramine HCl 25 mg 03/20/18 07:59 Benadryl PO Q4H PRN SEE LABEL COMMENTS Diphenhydramine HCl 25 mg 03/17/18 11:03 03/22/18 12:53 Benadryl PO 25 mg UNSCH PRN Administration SEE LABEL COMMENTS Epoetin Brandt 6,000 unit 03/17/18 11:03 03/23/18 10:12 Epogen Inj IV.PUSH 6,000 unit UNSCH PRN Administration SEE LABEL COMMENTS Furosemide 40 mg 03/15/18 09:00 03/18/18 09:53 Lasix Inj IV.PUSH Not Given BID@0900,1800 [facility]E Gelatin 1 foam 03/17/18 11:03 Gelfoam 12 Mm/7 Mm Topical TOPICAL PRN PRN help stop bleeding from site Gentamicin Sulfate 20 mg 03/17/18 11:03 03/23/18 12:59 Gentamicin Inj OTHER 20 mg WITH DIALYSIS PRN Administration Dwell Gentamycin Lock Hydralazine HCl 25 mg 03/12/18 19:23 03/24/18 09:25 Apresoline PO 25 mg TID CHLOE Administration Hydralazine HCl 10 mg 03/17/18 18:44 03/17/18 19:59 Apresoline Inj IV.PUSH 10 mg Q30M PRN Administration SBP>180, DBP>110 Hydromorphone HCl 0.5 mg 03/18/18 10:15 03/23/18 12:53 Dilaudid Pf Inj IV.PUSH 0.5 mg Q4H PRN Administration BREAKTHROUGH PAIN Dextrose/Sodium Chloride 1,000 mls @ 50 mls/hr 03/15/18 17:06 03/24/18 09:28 D5w/1/2 Ns Inj IV.CONT 50 mls/hr .Q20H [facility] Administration Albumin Human 100 mls @ 60 mls/hr 03/17/18 11:03 Flexbumin 25% Inj IV.SIG WITH DIALYSIS PRN hypotension / volume replace Sodium Chloride 1,000 mls @ 0 mls/hr 03/17/18 11:03 Ns Inj OTHER .Q0M PRN for prime and rinse back As Directed Sodium Chloride 1,000 mls @ 200 mls/hr 03/17/18 11:03 Ns Inj OTHER .Q5H PRN for dialyzer flush PRN Sodium Chloride 1,000 mls @ 0 mls/hr 03/17/18 11:03 Ns Inj IV.CONT .Q0M PRN hypotension / volume replace As Directed Mannitol 12.5 gm 03/17/18 11:03 Mannitol Inj IV.PUSH UNSCH PRN hypotension / volume replace Metoprolol Tartrate 12.5 mg 03/11/18 09:00 03/24/18 09:25 Lopressor PO 12.5 mg BID CHLOE Administration Miscellaneous 1 each 03/11/18 10:00 03/22/18 08:00 Pill Splitter OTHER 1 each UNSCH CHLOE Administration Naloxone HCl 0.4 mg 03/17/18 16:50 Narcan Inj IV.PUSH UNSCH PRN SEE LABEL COMMENTS Nitroglycerin 0.4 mg 03/17/18 11:03 Nitrostat Sl SL Q5M PRN CHEST PAIN Ondansetron HCl 4 mg 03/07/18 23:05 03/23/18 10:12 Zofran Inj IV.PUSH 4 mg Q6H PRN Administration NAUSEA OR VOMITING Ondansetron HCl 4 mg 03/17/18 11:03 Zofran Inj IV.PUSH UNSCH PRN NAUSEA OR VOMITING Oxybutynin Chloride 5 mg 03/17/18 21:00 03/24/18 09:25 Ditropan PO 5 mg BID CHLOE Administration Oxycodone HCl 5 mg 03/18/18 10:16 03/23/18 10:22 Roxicodone PO 5 mg Q4H PRN Administration Acute Pain 1-10 Pantoprazole Sodium 40 mg 03/13/18 15:45 03/24/18 09:26 Protonix PO 40 mg DAILY CHLOE Administration Polyethylene Glycol 17 gm 03/09/18 14:24 03/09/18 21:14 Miralax PO 17 gm DAILY PRN Administration Moderate-severe constipation Senna/Docusate Sodium 1 tab 03/09/18 21:00 03/24/18 09:25 Allyssa-Colace PO 1 tab BID CHLOE Administration Sodium Chloride 2 ml 03/08/18 09:00 03/24/18 09:26 Ns Flush IV.FLUSH 2 ml BID CHLOE Administration Sodium Chloride 2 ml 03/07/18 23:05 03/20/18 21:44 Ns Flush IV.FLUSH 2 ml PRN PRN Administration FLUSH AFTER USING IV ACCESS Sodium Chloride 5 ml 03/17/18 11:03 Ns Flush IV.FLUSH PRN PRN flush each lumen during HD Objective Remarks: CV: sinus tach Abd:soft, mild distension; no rebound Price: old dark blood Ext: neg C/C/E 03/10 CV: sinus tach Abd:soft,less tenderness and distension Price: blood tinged PCNT: bloody 03/10 16:00: SP pains. Bladder not palpable. No SP tenderness. Abd: now non tender LLQ. Bloody urine via nephrostomy, no clots. Bloody urine via price catheter, no clots. 03/11: Scant urine output via Nephrostomy tube. It may not be draining, will wait and see. Fairly good urine output via price catheter. Urine dark blood tinged, no clots. BP varies high to normal, Pulse varies, temp 99. 03/12: See "Subjective" for the Objective. Suspect Vancomycin toxicity causing deterioration in kidney function and decreased urine output. N tube draining dark burgundy urine. PLAN: Dr. Little following the labs. N tube irrigation by IR if needed. 03/13 Abd:soft,nt,nd Left PNCT with blood Price: hematuria 03/14 Abd:soft,nt,nd Left PCNT: bloody Price: blood tinged 03/15 Abd:soft,nt,nd Left PCNT: bloody Price: blood tinged 03/16 Abd:soft,nt,nd Left PCNT: bloody Price: blood tinged 03/17 Abd:soft,nt,nd Left PCNT: bloody Price: blood tinged 03/20 Abd:soft,nt,nd Left PCNT: bloody Price: blood tinged 03/22 Abd:soft,nt,nd Left PCNT: blood tinged Price: clear on slow CBI 03/23 Abd:soft,nt,nd Price: urine clearing on CBI Left PCNT: urine dark; bag leaking 03/24 Abd:soft,nt,nd Price: urine clearing on CBI Left PCNT: urine dark; bag leaking Assessment and Plan - Assessment (1) Sepsis due to urinary tract infection Code(s): A41.9 - Sepsis, unspecified organism; N39.0 - Urinary tract infection, site not specified Status: Acute Onset Date: ~03/07/18 (2) Hydronephrosis of left kidney Code(s): N13.30 - Unspecified hydronephrosis Status: Chronic (3) 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 Back up plan is to try to place a urinary stent cystoscopically in the OR. However, there is a great possibility that the presumed UPJ stenosis will prevent passage of guide wires and stent. 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 Discussed with Dr. Little. 03/11: N tube may or may not be draining. Sepsis improving. Still having bladder spasms, receiving Morphine. PLAN: Continue same. 03/12 See "Subjective", "Objective". 03/13 37 y.o male with sepsis and h/o horseshoe kidney s/p PCNT placement with hematuria Continue supportive measures for now Transfuse PRBC's today if repeat Hgb is below 8 Monitor u/o; avoid nephrotoxins Will follow. 03/14 37 y.o male with sepsis and horseshoe kidney s/p PCNT with hematuria and ARF Hgb stablized at 8.3 this AM. Creatinine rising to 5.7; u/o dropping Await Nephrology input Monitor u/o Continue conservative measures for now. 03/15 37 y.o male with sepsis and horseshoe kidney s/p PCNT with hematuria and worsening ARF. Creatinine up to 7.2 up from 5.7. Hgb down to 7.8. Will transfuse 1 unit PRBC's. Await Nephrology input Monitor u/o. 03/16 37 y.o male with sepsis and horseshoe kidney s/p PCNT with hematuria and worsening ARF probably due to ATN Continue conservative management from standpoint. No evidence of active bleeding. Will follow. 03/17 37 y.o male with sepsis s/p PCNT with hematuria and ARF Maintain price catheter- urine is clearing and less bloody Continue conservative measures. 03/20 37 y.o male with sepsis s/p PCNT with hematuria and ARF Transfuse [address] scan today Hold Heparin with dialysis. 03/22 37 y.o male s/p cysto with b/l JJ stent insertion with clot evacuation Maintain slow CBI Follow creatinine. Large amount of clot in left collecting system s/p PCNT Continue dialysis for now. Hold heparin with dialysis. Once urine clears will remove PCNT. 03/23 37 y.o male s/p cysto with b/l JJ stent insertion with clot evacuation Maintain slow CBI Continue conservative measures for now Follow labs. B&O suppository for bladder spasm. 03/24 37 y.o male with ARF s/p left PCNT s/p cysto with b/l JJ stent insertion s/p HD yesterday with 1.5 L removed Continue price and PNCT drainage
[2018-03-24] MEDS: HYDROmorphone PF Inj 0.5 MG/0.5 ML Syringe IV.PUSH PRN ×2 (10:13→22:05)
--- NOTE | 2018-03-24 14:20 | P.PNNP ---
Subjective Interval history: Sitting up in bed. No shortness of breath, chest pain, nausea, or vomiting. Poor appetite. HD yesterday tolerated well. <Wandy Pathak - Last Filed: 03/24/18 14:10> Physical Exam Vital signs: Vital Signs 03/23/18 15:00 03/23/18 16:00 03/23/18 17:00 Temperature 98 F Pulse Rate 89 92 H 87 Respiratory Rate 19 19 16 Blood Pressure 151/93 H 151/96 H Pulse Oximetry 03/23/18 18:00 03/23/18 19:00 03/23/18 20:00 Temperature 99.3 F Pulse Rate 83 81 89 Respiratory Rate 18 18 16 Blood Pressure 159/98 H 170/102 H 148/98 H Pulse Oximetry 100 03/23/18 21:00 03/23/18 22:00 03/23/18 23:00 Temperature Pulse Rate 80 78 71 Respiratory Rate 18 16 16 Blood Pressure 154/95 H 170/102 H 182/95 H Pulse Oximetry 03/24/18 00:00 03/24/18 01:00 03/24/18 02:00 Temperature 99.2 F Pulse Rate 70 77 72 Respiratory Rate 16 19 21 Blood Pressure 149/102 H 153/102 H 171/99 H Pulse Oximetry 03/24/18 03:00 03/24/18 04:00 03/24/18 05:00 Temperature Pulse Rate 80 77 80 Respiratory Rate 16 20 19 Blood Pressure 153/103 H 162/104 H 172/100 H Pulse Oximetry 03/24/18 06:00 03/24/18 07:00 03/24/18 08:00 Temperature 98.3 F Pulse Rate 76 82 80 Respiratory Rate 19 20 19 Blood Pressure 165/95 H 169/102 H 160/103 H Pulse Oximetry 99 03/24/18 09:00 03/24/18 09:47 03/24/18 10:06 Temperature Pulse Rate 87 98 H 77 Respiratory Rate 25 H 23 Blood Pressure 149/101 H 157/103 H Pulse Oximetry 03/24/18 10:30 03/24/18 11:00 03/24/18 11:12 Temperature Pulse Rate 92 H 87 100 H Respiratory Rate 22 36 H 15 Blood Pressure 167/103 H 143/106 H Pulse Oximetry Intake & Output 03/23/18 03/24/18 03/24/18 18:59 06:59 18:59 Intake Total 792 / 792 1000 / 1000 Output Total 3050 / 3050 350 / 350 Balance -2258 / -2258 650 / 650 Weight 64.1 kg Intake: IV 132 / 132 1000 / 1000 D5W/1/2 NS Inj 1,000 ML @ 50 132 / 132 1000 / 1000 mls/hr IV.CONT .Q20H [facility] Rx#: [id number] Oral 660 / 660 Output: Hemodialysis Amount 2500 / 2500 Urine Amount (Stoma) 350 / 350 Nephrostomy Tube Left 350 / 350 Wound Drainage 550 / 550 Left Posterior Chest 550 / 550 Other: Bladder Irrigation Fluid - Amount Instilled 3-way Urethral 2,600 2,500 Bladder Irrigation Fluid - Amount Drained 3-way Urethral 2,600 2,450 Date of Last Bowel Movement 03/22/18 03/22/18 03/24/18 Narrative: GENERAL: Alert and oriented. Thin SKIN: Warm and dry. NECK: Supple, trachea midline. No JVD CARDIOVASCULAR: Tachycardia. Regular rate and rhythm without murmurs, gallops, or rubs. right IJ vas cath. RESPIRATORY: Breath sounds equal bilaterally. No accessory muscle use. GASTROINTESTINAL: Abdomen soft, non-tender, nondistended. +BS GI: Left nephrostomy tube and indwelling Price catheter/three way with irrigation MUSCULOSKELETAL: No cyanosis, or edema. . - Urinary Catheter Management Indwelling Urethral Catheter Cath placed during this visit: yes Reason for continuing: Gross Hematuria Insertion date: 03/21/18 Insertion time: 10:03 3-way Urethral Cath placed during this visit: yes Reason for continuing: Other continuation reason Insertion date: 03/21/18 <Wandy Pathak - Last Filed: 03/24/18 14:10> Vital signs: Vital Signs 03/24/18 00:00 03/24/18 01:00 03/24/18 02:00 Temperature 99.2 F Pulse Rate 70 77 72 Respiratory Rate 16 19 21 Blood Pressure 149/102 H 153/102 H 171/99 H Pulse Oximetry 03/24/18 03:00 03/24/18 04:00 03/24/18 05:00 Temperature Pulse Rate 80 77 80 Respiratory Rate 16 20 19 Blood Pressure 153/103 H 162/104 H 172/100 H Pulse Oximetry 03/24/18 06:00 03/24/18 07:00 03/24/18 08:00 Temperature 98.3 F Pulse Rate 76 82 80 Respiratory Rate 19 20 19 Blood Pressure 165/95 H 169/102 H 160/103 H Pulse Oximetry 99 03/24/18 09:00 03/24/18 09:47 03/24/18 10:06 Temperature Pulse Rate 87 98 H 77 Respiratory Rate 25 H 23 Blood Pressure 149/101 H 157/103 H Pulse Oximetry 03/24/18 10:30 03/24/18 11:00 03/24/18 11:12 Temperature Pulse Rate 92 H 87 100 H Respiratory Rate 22 36 H 15 Blood Pressure 167/103 H 143/106 H Pulse Oximetry 03/24/18 12:00 03/24/18 13:00 03/24/18 14:00 Temperature 98 F Pulse Rate 86 69 74 Respiratory Rate 30 H 25 H 27 H Blood Pressure 164/105 H 175/108 H 164/94 H Pulse Oximetry 98 97 03/24/18 15:00 03/24/18 16:00 03/24/18 17:00 Temperature 98.6 F Pulse Rate 95 H 76 75 Respiratory Rate 23 19 18 Blood Pressure 137/83 152/91 H 156/95 H Pulse Oximetry 98 97 98 03/24/18 18:00 Temperature Pulse Rate 91 H Respiratory Rate 19 Blood Pressure 158/102 H Pulse Oximetry 98 Intake & Output 03/24/18 03/24/18 03/25/18 06:59 18:59 06:59 Intake Total 1000 / 1000 1200 / 1200 Output Total 350 / 350 550 / 550 Balance 650 / 650 650 / 650 Weight 64.1 kg Intake: IV 1000 / 1000 D5W/1/2 NS Inj 1,000 ML @ 50 1000 / 1000 mls/hr IV.CONT .Q20H [facility] Rx#: [id number] Oral 1200 / 1200 Output: Urine Amount (Stoma) 350 / 350 Nephrostomy Tube Left 350 / 350 Wound Drainage 550 / 550 Left Posterior Chest 550 / 550 Other: Bladder Irrigation Fluid - Amount Instilled 3-way Urethral 2,500 1,700 Bladder Irrigation Fluid - Amount Drained 3-way Urethral 2,450 2,300 Date of Last Bowel Movement 03/22/18 03/24/18 - Urinary Catheter Management Indwelling Urethral Catheter Cath placed during this visit: no 3-way Urethral Cath placed during this visit: no <Jorge Luis Scott - Last Filed: 03/24/18 23:16> Assessment and Plan - Assessment (1) Acute kidney injury Code(s): N17.9 - Acute kidney failure, unspecified Status: Acute Plan: [place] possible ATN from vancomycin toxicity or post renal. Repeat Renal ultrasound with known horseshoe kidney. There is no hydronephrosis on the right. There is moderate dilatation of the collecting system on the left with very poor delineation of the renal cortex. There is a 4 cm complex fluid collection around the nephrostomy. There is moderate free fluid present in the pelvis. Continue to monitor progress follow BMP Avoid nephrotoxins including IV contrast and NSAIDS Started HD on 03/17, vas cath 03/17 S/p cysto with stent placement Three way price placed with continuos irrigation. HD yesterday with removal of 1.5 liters of fluid Will continue to follow lab, urinary output, and watch for renal recovery. Creatinine has improved at 3.9 from 5.5, decreased urinary output still HD planned for tomorrow will check labs prior to dialysis Labs in AM (2) Hypertension Code(s): I10 - Essential (primary) hypertension Status: Acute Plan: Elevated, hydralazine resumed. (3) Hydronephrosis of left kidney Code(s): N13.30 - Unspecified hydronephrosis Status: Chronic Onset Date: Unknown Plan: Cysto with stent placement. (4) Anemia Code(s): D64.9 - Anemia, unspecified Status: Acute Plan: HGB at 8.8, Transfused PRBC 03/21 Transfuse for HGB less than 7.0 Epogen with dialysis <Wandy Pathak - Last Filed: 03/24/18 14:10> - Assessment (1) Acute kidney injury Code(s): N17.9 - Acute kidney failure, unspecified Status: Acute Plan: Patient seen and examined, agree with above. HD was done yesterday. Creatinine is better, could be related to HD. Watch for renal recovery. Possible HD tomorrow. (2) Hypertension Code(s): I10 - Essential (primary) hypertension Status: Acute (3) Hydronephrosis of left kidney Code(s): N13.30 - Unspecified hydronephrosis Status: Chronic Onset Date: Unknown (4) Anemia Code(s): D64.9 - Anemia, unspecified Status: Acute <Jorge Luis Scott - Last Filed: 03/24/18 23:16>
--- NOTE | 2018-03-24 15:59 | P.PNID ---
Subjective Remarks: Patient is a 37-year-old male, initially presented at [facility] for evaluation of abdominal pain on the left side. He also had some nausea, as well as some hematuria. Evaluation revealed hydronephrosis on the left side. Patient was transferred to [facility] for further management. Patient had an elevated WBC and creatinine. 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 Patient underwent placement of a nephrostomy tube on the left side. Patient has had problem with significant hematuria, and has required PRBC transfusion. He had one low-grade temperature since admission. He was put on antibiotics for UTI, and was on Zosyn from March 08 - March 15. Patient's creatinine continued to increase although he has good urine output from the nephrostomy, and lower output in his Caldwell catheter. His creatinine has gone up to 8. Vas-Cath was placed today and hemodialysis is planned. Patient currently is complaining of pain in the right neck where he has the Vas-Cath. He has mild pain over the left nephrostomy. He continues to have significant hematuria. He has been afebrile. He has had a few loose stools today. His last urinalysis was from March 13 with some mild pyuria and the culture is negative. Patient has been off antibiotics since March 15. Infectious disease consultation has been requested to evaluate the patient for possible persistent infection. Notes reviewed No fever NO pain Getting CBI CReatinine lower Off Abx UA from nephrostomy with many bacteria UC negative Antibiotics: NOne Past Medical History: Asthma Seizures Hx of tympanostomy tubes Pneumothorax Allergies/Adverse Reactions: Allergies meperidine [From Demerol] Allergy (Verified 03/09/18 04:22) Hives Objective Vital Signs 03/23/18 16:00 03/23/18 17:00 03/23/18 18:00 Temperature 98 F Pulse Rate 92 H 87 83 Respiratory Rate 19 16 18 Blood Pressure 151/96 H 159/98 H Pulse Oximetry 03/23/18 19:00 03/23/18 20:00 03/23/18 21:00 Temperature 99.3 F Pulse Rate 81 89 80 Respiratory Rate 18 16 18 Blood Pressure 170/102 H 148/98 H 154/95 H Pulse Oximetry 100 03/23/18 22:00 03/23/18 23:00 03/24/18 00:00 Temperature 99.2 F Pulse Rate 78 71 70 Respiratory Rate 16 16 16 Blood Pressure 170/102 H 182/95 H 149/102 H Pulse Oximetry 03/24/18 01:00 03/24/18 02:00 03/24/18 03:00 Temperature Pulse Rate 77 72 80 Respiratory Rate 19 21 16 Blood Pressure 153/102 H 171/99 H 153/103 H Pulse Oximetry 03/24/18 04:00 03/24/18 05:00 03/24/18 06:00 Temperature Pulse Rate 77 80 76 Respiratory Rate 20 19 19 Blood Pressure 162/104 H 172/100 H 165/95 H Pulse Oximetry 03/24/18 07:00 03/24/18 08:00 03/24/18 09:00 Temperature 98.3 F Pulse Rate 82 80 87 Respiratory Rate 20 19 25 H Blood Pressure 169/102 H 160/103 H 149/101 H Pulse Oximetry 99 03/24/18 09:47 03/24/18 10:06 03/24/18 10:30 Temperature Pulse Rate 98 H 77 92 H Respiratory Rate 23 22 Blood Pressure 157/103 H 167/103 H Pulse Oximetry 03/24/18 11:00 03/24/18 11:12 Temperature Pulse Rate 87 100 H Respiratory Rate 36 H 15 Blood Pressure 143/106 H Pulse Oximetry Intake & Output 03/23/18 03/24/18 03/24/18 18:59 06:59 18:59 Intake Total 792 / 792 1000 / 1000 Output Total 3050 / 3050 350 / 350 Balance -2258 / -2258 650 / 650 Weight 64.1 kg Intake: IV 132 / 132 1000 / 1000 D5W/1/2 NS Inj 1,000 ML @ 50 132 / 132 1000 / 1000 mls/hr IV.CONT .Q20H [facility] Rx#: [id number] Oral 660 / 660 Output: Hemodialysis Amount 2500 / 2500 Urine Amount (Stoma) 350 / 350 Nephrostomy Tube Left 350 / 350 Wound Drainage 550 / 550 Left Posterior Chest 550 / 550 Other: Bladder Irrigation Fluid - Amount Instilled 3-way Urethral 2,600 2,500 Bladder Irrigation Fluid - Amount Drained 3-way Urethral 2,600 2,450 Date of Last Bowel Movement 03/22/18 03/22/18 03/24/18 03/21/18 14:05 Clean Catch Urine Urine Culture - Final No growth in 48 hours 03/17/18 19:31 Blood - Peripheral Aerobic Blood Culture - Final No growth in 5 days 03/17/18 19:31 Blood - Peripheral Anaerobic Blood Culture - Final No growth in 5 days 03/17/18 19:24 Blood - Peripheral Aerobic Blood Culture - Final No growth in 5 days 03/17/18 19:24 Blood - Peripheral Anaerobic Blood Culture - Final No growth in 5 days Lab - Hematology Results 03/23/18 03/24/18 05:11 06:07 WBC 12.7 H 12.8 H RBC 2.97 L 3.32 L Hgb 8.8 L 9.7 L Hct 25.6 L 29.1 L MCV 86.3 87.7 MCH 29.6 29.1 MCHC 34.3 33.1 RDW 15.2 15.9 Plt Count 413 417 MPV 7.7 7.7 Neut % (Auto) 76.0 H 78.4 H Lymph % (Auto) 11.4 9.0 Webster % (Auto) 9.8 H 10.2 H Eos % (Auto) 2.2 1.5 Baso % (Auto) 0.6 0.9 Neut # (Auto) 9.6 H 10.0 H Lymph # (Auto) 1.4 1.2 Webster # (Auto) 1.2 H 1.3 H Eos # (Auto) 0.3 0.2 Baso # (Auto) 0.1 0.1 WBC Differential . . Differential Comment Auto diff final Auto diff final Lab - Chemistry Results 03/23/18 03/24/18 05:11 06:07 Sodium 140 139 Potassium 3.5 3.7 Chloride 102 101 Carbon Dioxide 30.6 32.1 H Anion Gap 7 6 BUN 21 H 14 Creatinine 5.54 H 3.95 H Estimated GFR 12 L 17 L Random Glucose 93 95 Calcium 7.9 L 8.3 L Phosphorus 4.1 Total Bilirubin 0.4 Direct Bilirubin 0.1 Indirect Bilirubin 0.3 AST 14 L ALT 11 L Alkaline Phosphatase 54 Total Protein 5.9 L Albumin 2.3 L Imaging: ITS Impressions Nephrostomy 03/08/18 00:00 CONCLUSION: 1. Uncomplicated nephrostomy tube placement as above. CT scan will be repeated to evaluate the kidney following percutaneous drainage Abdomen/Bladder Ultrasound 03/13/18 00:00 CONCLUSION: 1. Markedly abnormal left kidney with nephrostomy tube in place. 2. Repeat noncontrast CT scan may be of benefit. Videofluoroscopic Swallow 03/14/18 15:40 CONCLUSION: Unremarkable modified swallow. See speech pathology report. Barium Swallow X-Ray 03/15/18 00:00 CONCLUSION: 1. Limited examination with no stricture or ulceration. 2. Small reducible hiatal hernia. Catheter Placement 03/17/18 00:00 CONCLUSION: 1. Uncomplicated right IJ Vas-Cath placement as above. Abdomen/Pelvis CT 03/20/18 00:00 CONCLUSION: 1. Stable appearance to the enlarged left moiety of horseshoe kidney with the evolving hemorrhage and nephrostomy catheter in place. No significant interval change when compared to 03/17/2018. 2. Moderate free fluid in the dependent pelvis and moderate-sized bilateral pleural effusions, stable. Chest X-Ray 03/24/18 06:00 CONCLUSION: Small bilateral effusions. Diffuse interstitial prominence. Physical Exam: GENERAL: awake and alert, not in respiratory distress. SKIN: Cool and dry. Pale. No generalized rash EYES: Blackgum conjunctiva. No petechia or hemorrhage. Pupils equal, round and reactive to light. Extraocular movements full and intact. No scleral icterus. No injection or drainage. EARS, NOSE AND THROAT: Nose without bleeding or purulent nasal discharge. No sinus tenderness. Mucous membranes pink and moist. No oral lesions noted. No exudate. No oral thrush. NECK: Trachea midline. Supple and not tender, no meningeal signs CARDIOVASCULAR: Regular rate and rhythm. No murmurs, rubs or gallops heard RESPIRATORY: Clear to auscultation. Breath sounds equal bilaterally. No rales , wheezing or rhonchi ABDOMEN: Soft, non-tender, nondistended. Bowel sounds present and normoactive. No guarding. No rebound. No organomegaly. L nephrostomy tube with bloody urine : Caldwell with blood tinged urine, lo0oks better EXTREMITIES: No clubbing, cyanosis. has bilateral pedal edema. No calf tenderness. NEUROLOGICAL: Non-focal. PSYCHIATRIC: Normal affect, calm and cooperative. LINE: No evidence of infection Assessment and Plan - Plan Impression Hematuria - has obstruction L kidney, with horse shoe kidnea - has nephrostomy on the left side - s/p cysto, has bilateral stents Hematuria Progressive renal failure, still nonoliguric - has been started on HD Status post treatment for UTI Episode of rigors, fever and tachy 03/17 possibly due to clots causing blockage - better Recommendation Not on any Abx currently Clinically doing well from ID standpoint I will sign off Please reconsult if with any new ID issue or question
[2018-03-24] MEDS: hydrALAZINE 50 MG Tablet PO SCH (17:32)
--- NOTE | 2018-03-24 17:44 | P.PNIM ---
Subjective Interval history: Patient reports no shortness of breath. Trying to eat more food. No pain at this time. Physical Exam Vital signs: Vital Signs 03/23/18 18:00 03/23/18 19:00 03/23/18 20:00 Temperature 99.3 F Pulse Rate 83 81 89 Respiratory Rate 18 18 16 Blood Pressure 159/98 H 170/102 H 148/98 H Pulse Oximetry 100 03/23/18 21:00 03/23/18 22:00 03/23/18 23:00 Temperature Pulse Rate 80 78 71 Respiratory Rate 18 16 16 Blood Pressure 154/95 H 170/102 H 182/95 H Pulse Oximetry 03/24/18 00:00 03/24/18 01:00 03/24/18 02:00 Temperature 99.2 F Pulse Rate 70 77 72 Respiratory Rate 16 19 21 Blood Pressure 149/102 H 153/102 H 171/99 H Pulse Oximetry 03/24/18 03:00 03/24/18 04:00 03/24/18 05:00 Temperature Pulse Rate 80 77 80 Respiratory Rate 16 20 19 Blood Pressure 153/103 H 162/104 H 172/100 H Pulse Oximetry 03/24/18 06:00 03/24/18 07:00 03/24/18 08:00 Temperature 98.3 F Pulse Rate 76 82 80 Respiratory Rate 19 20 19 Blood Pressure 165/95 H 169/102 H 160/103 H Pulse Oximetry 99 03/24/18 09:00 03/24/18 09:47 03/24/18 10:06 Temperature Pulse Rate 87 98 H 77 Respiratory Rate 25 H 23 Blood Pressure 149/101 H 157/103 H Pulse Oximetry 03/24/18 10:30 03/24/18 11:00 03/24/18 11:12 Temperature Pulse Rate 92 H 87 100 H Respiratory Rate 22 36 H 15 Blood Pressure 167/103 H 143/106 H Pulse Oximetry 03/24/18 12:00 03/24/18 13:00 03/24/18 14:00 Temperature 98 F Pulse Rate 86 69 74 Respiratory Rate 30 H 25 H 27 H Blood Pressure 164/105 H 175/108 H 164/94 H Pulse Oximetry 98 97 03/24/18 15:00 03/24/18 16:00 Temperature 98.6 F Pulse Rate 95 H 76 Respiratory Rate 23 19 Blood Pressure 137/83 152/91 H Pulse Oximetry 98 97 Intake & Output 03/23/18 03/24/18 03/24/18 18:59 06:59 18:59 Intake Total 792 / 792 1000 / 1000 Output Total 3050 / 3050 350 / 350 Balance -2258 / -2258 650 / 650 Weight 64.1 kg Intake: IV 132 / 132 1000 / 1000 D5W/1/2 NS Inj 1,000 ML @ 50 132 / 132 1000 / 1000 mls/hr IV.CONT .Q20H [facility] Rx#: [id number] Oral 660 / 660 Output: Hemodialysis Amount 2500 / 2500 Urine Amount (Stoma) 350 / 350 Nephrostomy Tube Left 350 / 350 Wound Drainage 550 / 550 Left Posterior Chest 550 / 550 Other: Bladder Irrigation Fluid - Amount Instilled 3-way Urethral 2,600 2,500 Bladder Irrigation Fluid - Amount Drained 3-way Urethral 2,600 2,450 Date of Last Bowel Movement 03/22/18 03/22/18 03/24/18 Narrative: GENERAL: Patient sitting up in bed. Appears comfortable today.. Alert and oriented x3. CARDIOVASCULAR: Regular rate and rhythm without murmurs, gallops, or rubs. RESPIRATORY: Breath sounds equal bilaterally. No accessory muscle use. GASTROINTESTINAL: Abdomen soft, non-tender, nondistended. Left flank with percutaneous nephrostomy tube in place as before. Urine with hematuria, no clots, Caldwell undergoing irrigation with light hematuria today. MUSCULOSKELETAL: No cyanosis, or edema. Urinary Catheter Management Indwelling Urethral Catheter: Cath placed during this visit: yes Reason for continuing: Gross Hematuria Insertion date: 03/21/18 Insertion time: 10:03 3-way Urethral: Cath placed during this visit: yes Reason for continuing: Other continuation reason Insertion date: 03/21/18 Results Labs CBC & Chem 7: 03/24/18 06:07 03/24/18 06:07 Imaging Imaging: Impressions Chest X-Ray 03/24/18 06:00 CONCLUSION: Small bilateral effusions. Diffuse interstitial prominence. Procedures Procedures: 03/08percutaneous nephrostomy in the left kidney 03/16 upper endoscopy 03/17 right IJ Vas-Cath 03/21 Cystoscopy with clot retention with bilateral retrograde studies, right ureteral dilatation, bilateral double-J stent insertio Assessment and Plan (1) Acute kidney injury: Code(s): N17.9 - Acute kidney failure, unspecified Status: Acute (2) Hypertension: Code(s): I10 - Essential (primary) hypertension Status: Acute (3) Hydronephrosis of left kidney: Code(s): N13.30 - Unspecified hydronephrosis Status: Chronic Onset Date: Unknown (4) Anemia: Code(s): D64.9 - Anemia, unspecified Status: Acute Plan 37-year-old male presents with complaint of abdominal pain hematuria found to be septic due to pyelonephritis with 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 He was admitted and seen by urology who arranged for percutaneous nephrostomy tube by IR on 03/08. Subsequently, patient continued to have gross hematuria require transfusion 2 units on 03/08 first and then again 2 units on March 11. Patient also developed acute renal failure and symptoms of dysphagia Septic shock with hypotension responsive to fluids with presenting lactic acid of 6.9 due to pyelonephritiscompleted Zosyn coourse, Last vancomycin dose was 03/11 and stopped due to acute renal failure, blood cultures negative, urine culture negative Severe hydronephrosis with UPJ obstruction with left horseshoe kidney status post percutaneous nephrostomy tube placement by IR on 03/08. Continue management per urology. Continuous irrigation. 03/21 status post cystoscope with stenting by urology on continuous bladder irrigation Acute renal failure likely due to acute tubular necrosis vancomycin and sepsis and previous obstruction with worsening creatinine to 7patient continues to have urine output. Hemodialysis yesterday Nephrology monitoring, on IV Lasixcreatinine has improved overnight. Continue IV fluids monitor I and O closely Continue monitor for improvement Anemia due to acute blood loss- status post total of 7 units of total transfusionwill monitor hemoglobin remained stable today Severe protein calorie malnutrition with albumin 2.0, generalized weakness continue mighty shakes supplements, dietitian consultation Dysphagianormals barium swallow, Continue Protonix EGD 03/16 showed esophageal stricture status post dilatation biopsy pending now tolerating solid food Hypertension history -controlled, continue hydralazine metoprolol Bilateral pleural effusion with bibasilar atelectasisencourage incentive spirometry usecurrently on Lasix, decrease IVF Fluid removed with dialysis Chest x-ray reviewed showed small pleural effusion with diffuse interstitial prominence Currently stable on room air Asthma history no acute exacerbation nebs as needed DVT prophylaxisno anticoagulation due to hematuria, SCD Physical therapy evaluation Progress Note: Quality VTE Deep Vein Thrombosis/Pulmonary Embolism Present on Admission: No _ (1) Hypertension Qualifiers: Hypertension type: (2) Anemia Qualifiers: Anemia type: Iron deficiency anemia type: Vitamin B12 deficiency anemia type: Folate deficiency anemia type: Bone marrow failure anemia type: Hemolytic anemia type: Other causes of anemia: Chronic kidney disease stage :
[2018-03-24] MEDS: Acetaminophen 325 MG Tablet PO PRN (19:01)
[2018-03-25 05:50] LABS: Baso # (Auto) 0.1 th/mm3 (0.0-0.2); Baso % (Auto) 0.6 % (0.0-2.0); Eos # (Auto) 0.2 th/mm3 (0.0-0.4); Eos % (Auto) 1.9 % (0.0-4.0); Hematocrit 29.1 % (39.0-51.0); Hemoglobin 9.6 gm/dL (13.0-17.0); Lymph # (Auto) 1.1 th/mm3 (1.0-4.8); Lymph % (Auto) 8.6 % (9.0-44.0); Mean Corpuscular HGB Conc 33.1 % (32.0-36.0); Mean Corpuscular Hemoglobin 28.8 pg (27.0-34.0); Mean Corpuscular Volume 87.1 fL (80.0-100.0); Mean Platelet Volume 8.5 fL (7.0-11.0); Mono # (Auto) 1.2 th/mm3 (0.0-0.9); Mono % (Auto) 9.8 % (0.0-8.0); Neut # (Auto) 9.7 th/mm3 (1.8-7.7); Neut % (Auto) 79.1 % (16.0-70.0); Platelet Count 370 th/mm3 (150-450); Red Blood Count 3.35 mil/mm3 (4.50-5.90); Red Cell Distribution Width 15.4 % (11.6-17.2); White Blood Count 12.2 th/mm3 (4.0-11.0)
[2018-03-25] MEDS: Dextrose 5%/NaCl 0.45% Inj 1,000 ML IV.CONT SCH ×2 (06:01→17:26)
[2018-03-25] MEDS: hydrALAZINE 50 MG Tablet PO SCH ×3 (08:33→17:30)
[2018-03-25] MEDS: Metoprolol Tartrate 25 MG Tablet PO SCH ×2 (08:34→22:18)
[2018-03-25] MEDS: Senna/Docusate Sodium 8.6/50 MG Tablet PO SCH ×2 (08:34→22:19)
[2018-03-25] MEDS: HYDROmorphone PF Inj 0.5 MG/0.5 ML Syringe IV.PUSH PRN ×2 (08:35→13:59)
--- NOTE | 2018-03-25 13:54 | P.PNIM ---
Subjective Interval history: Patient reports no vomiting. Trying to eat lunch. Still not much of an appetite. Physical Exam Vital signs: Vital Signs 03/24/18 14:00 03/24/18 15:00 03/24/18 16:00 Temperature 98.6 F Pulse Rate 74 95 H 76 Respiratory Rate 27 H 23 19 Blood Pressure 164/94 H 137/83 152/91 H Pulse Oximetry 97 98 97 03/24/18 17:00 03/24/18 18:00 03/24/18 19:00 Temperature 98.9 F Pulse Rate 75 91 H 78 Respiratory Rate 18 19 18 Blood Pressure 156/95 H 158/102 H 150/98 H Pulse Oximetry 98 98 96 03/24/18 20:00 03/24/18 21:00 03/24/18 22:00 Temperature Pulse Rate 88 96 H 78 Respiratory Rate 16 21 19 Blood Pressure 153/96 H 148/98 H 161/98 H Pulse Oximetry 98 98 98 03/24/18 23:00 03/25/18 00:00 03/25/18 01:00 Temperature Pulse Rate 88 73 98 H Respiratory Rate 15 16 26 H Blood Pressure 150/95 H 155/95 H 150/103 H Pulse Oximetry 96 97 98 03/25/18 02:00 03/25/18 02:48 03/25/18 03:00 Temperature Pulse Rate 76 78 76 Respiratory Rate 17 16 18 Blood Pressure 170/104 H 164/110 H 157/102 H Pulse Oximetry 98 98 97 03/25/18 04:00 03/25/18 05:00 03/25/18 06:00 Temperature Pulse Rate 83 79 81 Respiratory Rate 15 16 17 Blood Pressure 144/92 H 163/90 H 156/98 H Pulse Oximetry 97 96 96 03/25/18 07:00 03/25/18 08:00 03/25/18 09:00 Temperature 98.7 F Pulse Rate 74 80 98 H Respiratory Rate 17 21 23 Blood Pressure 155/99 H 160/96 H 149/98 H Pulse Oximetry 97 97 96 03/25/18 10:00 03/25/18 11:00 03/25/18 12:00 Temperature 98.3 F Pulse Rate 83 89 96 H Respiratory Rate 16 18 15 Blood Pressure 165/96 H 139/90 129/85 Pulse Oximetry 97 97 98 03/25/18 13:00 Temperature Pulse Rate 85 Respiratory Rate 17 Blood Pressure 130/89 Pulse Oximetry 98 Intake & Output 03/24/18 03/25/18 03/25/18 18:59 06:59 18:59 Intake Total 1200 / 1200 1680 / 1680 Output Total 550 / 550 1100 / 1100 Balance 650 / 650 580 / 580 Weight 63.1 kg Intake: IV 1000 / 1000 D5W/1/2 NS Inj 1,000 ML @ 50 1000 / 1000 mls/hr IV.CONT .Q20H [facility] Rx#: [id number] Oral 1200 / 1200 400 / 400 Bladder Irrigation Fluid - 280 / 280 Amount Retained 3-way Urethral 280 / 280 Output: Emesis 100 / 100 Urine Amount (Stoma) 1000 / 1000 Nephrostomy Tube Left 1000 / 1000 Wound Drainage 550 / 550 Left Posterior Chest 550 / 550 Other: Bladder Irrigation Fluid - Amount Instilled 3-way Urethral 1,700 1,500 Bladder Irrigation Fluid - Amount Drained 3-way Urethral 2,300 1,280 Date of Last Bowel Movement 03/24/18 03/24/18 03/24/18 # Emeses 1 Narrative: GENERAL: Patient sitting up in bed. Appears comfortable today.. Alert and oriented x3. CARDIOVASCULAR: Regular rate and rhythm without murmurs, gallops, or rubs. RESPIRATORY: Breath sounds equal bilaterally. No accessory muscle use. GASTROINTESTINAL: Abdomen soft, non-tender, nondistended. Left flank with percutaneous nephrostomy tube in place as before. Urine with hematuria, no clots, undergoing irrigation with light hematuria today. MUSCULOSKELETAL: No cyanosis, or edema. Neuro examalert and oriented x3 Urinary Catheter Management Indwelling Urethral Catheter: Cath placed during this visit: yes Reason for continuing: Gross Hematuria Insertion date: 03/21/18 Insertion time: 10:03 3-way Urethral: Cath placed during this visit: yes Reason for continuing: Hourly intake/output Insertion date: 03/21/18 Results Labs CBC & Chem 7: 03/25/18 04:19 03/24/18 06:07 Procedures Procedures: 03/08percutaneous nephrostomy in the left kidney 03/16 upper endoscopy 03/17 right IJ Vas-Cath 03/21 Cystoscopy with clot retention with bilateral retrograde studies, right ureteral dilatation, bilateral double-J stent insertio Assessment and Plan (1) Acute kidney injury: Code(s): N17.9 - Acute kidney failure, unspecified Status: Acute (2) Hypertension: Code(s): I10 - Essential (primary) hypertension Status: Acute (3) Hydronephrosis of left kidney: Code(s): N13.30 - Unspecified hydronephrosis Status: Chronic Onset Date: Unknown (4) Anemia: Code(s): D64.9 - Anemia, unspecified Status: Acute Plan 37-year-old male presents with complaint of abdominal pain hematuria found to be septic due to pyelonephritis with 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 He was admitted and seen by urology who arranged for percutaneous nephrostomy tube by IR on 03/08. Subsequently, patient continued to have gross hematuria require transfusion 2 units on 03/08 first and then again 2 units on March 11. 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 Continue management per urology. Continuous irrigation. 03/21 status post cystoscope with stenting by urology on continuous bladder irrigation Acute renal failure likely due to acute tubular necrosis vancomycin and sepsis and previous obstruction with worsening creatinine to 7patient continues to have urine output. Hemodialysis , await today's labs drawn at HD Nephrology monitoring, on IV Lasixcreatinine has improved 03/24. 5.54->3.95 monitor I and O closely Continue monitor for improvement Anemia due to acute blood loss- status post total of 7 units of total transfusionwill monitor hemoglobin remained stable today, 9.6 Severe protein calorie malnutrition with albumin 2.0, generalized weakness continue mighty shakes supplements, appreciate dietitian recommendations Dysphagianormals barium swallow, Continue Protonix EGD 03/16 showed esophageal stricture status post dilatation biopsy pending now tolerating solid food Hypertension history -controlled, continue hydralazine metoprolol Bilateral pleural effusion with bibasilar atelectasisencourage incentive spirometry usecurrently on Lasix, decrease IVF Fluid removed with dialysis Chest x-ray reviewed showed small pleural effusion with diffuse interstitial prominence Currently stable on room air Asthma history no acute exacerbation nebs as needed DVT prophylaxisno anticoagulation due to hematuria, SCD Physical therapy evaluation Progress Note: Quality VTE Deep Vein Thrombosis/Pulmonary Embolism Present on Admission: No _ (1) Hypertension Qualifiers: Hypertension type: (2) Anemia Qualifiers: Anemia type: Iron deficiency anemia type: Vitamin B12 deficiency anemia type: Folate deficiency anemia type: Bone marrow failure anemia type: Hemolytic anemia type: Other causes of anemia: Chronic kidney disease stage :
[2018-03-25 14:04] LABS: Carbon Dioxide 28.9 meq/L (21.0-32.0); Potassium 3.6 meq/L (3.5-5.1)
--- NOTE | 2018-03-25 21:08 | P.PNNP ---
Subjective Interval history: Patient seen in the afternoon, alert, mild abd. pain off and on. Physical Exam Vital signs: Vital Signs 03/24/18 22:00 03/24/18 23:00 03/25/18 00:00 Temperature Pulse Rate 78 88 73 Respiratory Rate 19 15 16 Blood Pressure 161/98 H 150/95 H 155/95 H Pulse Oximetry 98 96 97 03/25/18 01:00 03/25/18 02:00 03/25/18 02:48 Temperature Pulse Rate 98 H 76 78 Respiratory Rate 26 H 17 16 Blood Pressure 150/103 H 170/104 H 164/110 H Pulse Oximetry 98 98 98 03/25/18 03:00 03/25/18 04:00 03/25/18 05:00 Temperature Pulse Rate 76 83 79 Respiratory Rate 18 15 16 Blood Pressure 157/102 H 144/92 H 163/90 H Pulse Oximetry 97 97 96 03/25/18 06:00 03/25/18 07:00 03/25/18 08:00 Temperature 98.7 F Pulse Rate 81 74 80 Respiratory Rate 17 17 21 Blood Pressure 156/98 H 155/99 H 160/96 H Pulse Oximetry 96 97 97 03/25/18 09:00 03/25/18 10:00 03/25/18 11:00 Temperature Pulse Rate 98 H 83 89 Respiratory Rate 23 16 18 Blood Pressure 149/98 H 165/96 H 139/90 Pulse Oximetry 96 97 97 03/25/18 12:00 03/25/18 13:00 03/25/18 14:00 Temperature 98.3 F Pulse Rate 96 H 85 84 Respiratory Rate 15 17 21 Blood Pressure 129/85 130/89 150/95 H Pulse Oximetry 98 98 98 03/25/18 15:00 03/25/18 16:00 03/25/18 17:00 Temperature 98.5 F Pulse Rate 90 77 78 Respiratory Rate 18 24 20 Blood Pressure 154/98 H 169/99 H 153/99 H Pulse Oximetry 97 99 98 03/25/18 18:00 Temperature Pulse Rate 85 Respiratory Rate 17 Blood Pressure 151/94 H Pulse Oximetry 98 Intake & Output 03/25/18 03/25/18 03/26/18 06:59 18:59 06:59 Intake Total 1680 / 1680 450 / 450 Output Total 1100 / 1100 1025 / 1025 Balance 580 / 580 -575 / -575 Weight 63.1 kg Intake: IV 1000 / 1000 D5W/1/2 NS Inj 1,000 ML @ 50 1000 / 1000 mls/hr IV.CONT .Q20H [facility] Rx#: [id number] Oral 400 / 400 450 / 450 Bladder Irrigation Fluid - 280 / 280 Amount Retained 3-way Urethral 280 / 280 Output: Emesis 100 / 100 Urine Amount (Catheter) 200 / 200 3-way Urethral 200 / 200 Urine Amount (Stoma) 1000 / 1000 825 / 825 Nephrostomy Tube Left 1000 / 1000 825 / 825 Other: Bladder Irrigation Fluid - Amount Instilled 3-way Urethral 1,500 180 Bladder Irrigation Fluid - Amount Drained 3-way Urethral 1,280 Date of Last Bowel Movement 03/24/18 03/24/18 # Emeses 1 Narrative: GENERAL: Alert and oriented. Thin SKIN: Warm and dry. NECK: Supple, trachea midline. No JVD CARDIOVASCULAR: Tachycardia. Regular rate and rhythm without murmurs, gallops, or rubs. right IJ vas cath. RESPIRATORY: Breath sounds equal bilaterally. No accessory muscle use. GASTROINTESTINAL: Abdomen soft, non-tender, nondistended. +BS GI: Left nephrostomy tube and indwelling Caldwell catheter/three way with irrigation MUSCULOSKELETAL: No cyanosis, or edema. . - Urinary Catheter Management Indwelling Urethral Catheter Cath placed during this visit: yes Reason for continuing: Gross Hematuria Insertion date: 03/21/18 Insertion time: 10:03 3-way Urethral Cath placed during this visit: yes Reason for continuing: Hourly intake/output Insertion date: 03/21/18 Assessment and Plan - Assessment (1) Acute kidney injury Code(s): N17.9 - Acute kidney failure, unspecified Status: Acute Plan: Patient with Acute kidney injury, Creatinine is still elevated. HD today, Watch for renal recovery. On CBI, Urology following. (2) Hypertension Code(s): I10 - Essential (primary) hypertension Status: Acute Plan: Elevated, hydralazine resumed. (3) Hydronephrosis of left kidney Code(s): N13.30 - Unspecified hydronephrosis Status: Chronic Onset Date: Unknown Plan: Cysto with stent placement. (4) Anemia Code(s): D64.9 - Anemia, unspecified Status: Acute Plan: HGB at 8.8, Transfused PRBC / Transfuse for HGB less than 7.0 Epogen with dialysis
[2018-03-26 06:19] LABS: Calcium 8.2 mg/dL (8.5-10.1); Carbon Dioxide 29.3 meq/L (21.0-32.0); Potassium 3.4 meq/L (3.5-5.1)
[2018-03-26] MEDS: Senna/Docusate Sodium 8.6/50 MG Tablet PO SCH ×2 (09:11→21:21)
[2018-03-26] MEDS: hydrALAZINE 50 MG Tablet PO SCH ×3 (09:12→17:47)
[2018-03-26] MEDS: Metoprolol Tartrate 25 MG Tablet PO SCH ×2 (09:12→21:19)
[2018-03-26] MEDS: Dextrose 5%/NaCl 0.45% Inj 1,000 ML IV.CONT SCH ×2 (14:04→23:52)
--- NOTE | 2018-03-26 14:26 | P.PNIM ---
Subjective Interval history: Feeling nauseous, trying to eat. No significant current pain. Physical Exam Vital signs: Vital Signs 03/25/18 15:00 03/25/18 16:00 03/25/18 17:00 Temperature 98.5 F Pulse Rate 90 77 78 Respiratory Rate 18 24 20 Blood Pressure 154/98 H 169/99 H 153/99 H Pulse Oximetry 97 99 98 03/25/18 18:00 03/25/18 19:00 03/25/18 19:20 Temperature Pulse Rate 85 80 79 Respiratory Rate 17 19 18 Blood Pressure 151/94 H 150/101 H 158/98 H Pulse Oximetry 98 98 97 03/25/18 19:40 03/25/18 20:00 03/25/18 20:20 Temperature Pulse Rate 79 81 88 Respiratory Rate 19 17 18 Blood Pressure 167/103 H 174/108 H 165/102 H Pulse Oximetry 97 98 97 03/25/18 20:40 03/25/18 21:00 03/25/18 21:20 Temperature Pulse Rate 80 80 107 H Respiratory Rate 18 18 17 Blood Pressure 161/104 H 183/104 H 159/104 H Pulse Oximetry 98 98 98 03/25/18 21:40 03/25/18 22:00 03/25/18 22:08 Temperature Pulse Rate 83 118 H 107 H Respiratory Rate 18 21 19 Blood Pressure 173/103 H 156/100 H Pulse Oximetry 98 98 98 03/25/18 23:00 03/25/18 23:08 03/26/18 00:00 Temperature Pulse Rate 93 H 99 H 87 Respiratory Rate 27 H 23 24 Blood Pressure 144/91 H Pulse Oximetry 96 96 96 03/26/18 00:07 03/26/18 01:00 03/26/18 01:07 Temperature Pulse Rate 87 105 H 98 H Respiratory Rate 24 14 16 Blood Pressure 156/90 H 144/91 H Pulse Oximetry 96 97 96 03/26/18 02:00 03/26/18 02:07 03/26/18 03:00 Temperature 97.9 F Pulse Rate 116 H 87 115 H Respiratory Rate 30 H 23 30 H Blood Pressure 145/84 H Pulse Oximetry 96 96 95 03/26/18 03:07 03/26/18 04:00 03/26/18 04:08 Temperature 98.0 F Pulse Rate 93 H 83 85 Respiratory Rate 20 23 22 Blood Pressure 149/91 H 147/94 H Pulse Oximetry 96 96 96 03/26/18 05:00 03/26/18 05:08 03/26/18 06:00 Temperature Pulse Rate 83 83 88 Respiratory Rate 20 20 21 Blood Pressure 157/88 H Pulse Oximetry 96 97 97 03/26/18 06:07 03/26/18 07:00 03/26/18 07:07 Temperature Pulse Rate 84 75 84 Respiratory Rate 20 20 20 Blood Pressure 160/85 H 148/91 H Pulse Oximetry 97 96 97 03/26/18 08:00 03/26/18 08:07 03/26/18 09:00 Temperature 98.6 F Pulse Rate 78 77 80 Respiratory Rate 20 21 20 Blood Pressure 170/86 H Pulse Oximetry 97 97 97 03/26/18 09:07 03/26/18 10:00 03/26/18 10:07 Temperature Pulse Rate 78 83 81 Respiratory Rate 16 20 20 Blood Pressure 137/88 164/83 H Pulse Oximetry 97 97 97 03/26/18 11:00 03/26/18 11:08 03/26/18 12:00 Temperature Pulse Rate 87 90 99 H Respiratory Rate 18 18 17 Blood Pressure 133/87 Pulse Oximetry 97 97 97 03/26/18 12:08 03/26/18 13:00 03/26/18 13:14 Temperature Pulse Rate 91 H 104 H 95 H Respiratory Rate 19 19 15 Blood Pressure 131/85 143/81 H Pulse Oximetry 97 97 97 03/26/18 14:00 Temperature Pulse Rate 93 H Respiratory Rate 11 L Blood Pressure Pulse Oximetry 97 Intake & Output 03/25/18 03/26/18 03/26/18 18:59 06:59 18:59 Intake Total 450 / 450 1870 / 1870 Output Total 1025 / 1025 2600 / 2600 Balance -575 / -575 -730 / -730 Weight 63.1 kg Intake: IV 1000 / 1000 D5W/1/2 NS Inj 1,000 ML @ 50 1000 / 1000 mls/hr IV.CONT .Q20H [facility] Rx#: [id number] Oral 450 / 450 720 / 720 Bladder Irrigation Fluid - 150 / 150 Amount Retained 3-way Urethral 150 / 150 Output: Hemodialysis Amount 1999 / 1999 Urine Amount (Catheter) 200 / 200 200 / 200 3-way Urethral 200 / 200 200 / 200 Urine Amount (Stoma) 825 / 825 400 / 400 Nephrostomy Tube Left 825 / 825 400 / 400 Other: Bladder Irrigation Fluid - Amount Instilled 3-way Urethral 180 1,500 Bladder Irrigation Fluid - Amount Drained 3-way Urethral 1,350 Date of Last Bowel Movement 03/24/18 03/25/18 03/25/18 # Bowel Movements 1 # Emeses 2 Narrative: GENERAL: Patient sitting up in bed. Appears comfortable today.. Alert and oriented x3. CARDIOVASCULAR: Regular rate and rhythm RESPIRATORY: Breath sounds equal bilaterally. No accessory muscle use. GASTROINTESTINAL: Abdomen soft, non-tender, nondistended. Left flank with percutaneous nephrostomy tube in place as before. Urine with hematuria, no clots, undergoing irrigation with light hematuria today. MUSCULOSKELETAL: No cyanosis, or edema. Neuro examalert and oriented x3 Urinary Catheter Management Indwelling Urethral Catheter: Cath placed during this visit: yes Reason for continuing: Gross Hematuria Insertion date: 03/21/18 Insertion time: 10:03 3-way Urethral: Cath placed during this visit: yes Reason for continuing: Hourly intake/output Insertion date: 03/21/18 Results Labs CBC & Chem 7: 03/25/18 04:19 03/26/18 05:23 Procedures Procedures: 03/08percutaneous nephrostomy in the left kidney 03/16 upper endoscopy 03/17 right IJ Vas-Cath 03/21 Cystoscopy with clot retention with bilateral retrograde studies, right ureteral dilatation, bilateral double-J stent insertio Assessment and Plan (1) Acute kidney injury: Code(s): N17.9 - Acute kidney failure, unspecified Status: Acute (2) Hypertension: Code(s): I10 - Essential (primary) hypertension Status: Acute (3) Hydronephrosis of left kidney: Code(s): N13.30 - Unspecified hydronephrosis Status: Chronic Onset Date: Unknown (4) Anemia: Code(s): D64.9 - Anemia, unspecified Status: Acute Plan 37-year-old male presents with complaint of abdominal pain hematuria found to be septic due to pyelonephritis with 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 He was admitted and seen by urology who arranged for percutaneous nephrostomy tube by IR on 03/08. Subsequently, patient continued to have gross hematuria require transfusion 2 units on 03/08 first and then again 2 units on March 11. 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 Continue management per urology. Continuous irrigation. 03/21 status post cystoscope with stenting by urology on continuous bladder irrigation Acute renal failure likely due to acute tubular necrosis vancomycin and sepsis and previous obstruction with worsening creatinine to 7patient continues to have urine output. Hemodialysis yesterday, Nephrology monitoring, on IV Lasixcreatinine has improved 03/24. 4.85->3.52 monitor I and O closely Continue monitor for improvement Anemia due to acute blood loss- status post total of 7 units of total transfusionwill monitor hemoglobin remained stable 03/25, 9.6 Severe protein calorie malnutrition with albumin 2.0, generalized weakness continue mighty shakes supplements, appreciate dietitian recommendations Dysphagianormals barium swallow, Continue Protonix EGD 03/16 showed esophageal stricture status post dilatation biopsy pending now tolerating solid food Hypertension history -controlled, continue hydralazine metoprolol Bilateral pleural effusion with bibasilar atelectasisencourage incentive spirometry usecurrently on Lasix, decrease IVF Fluid removed with dialysis Chest x-ray reviewed showed small pleural effusion with diffuse interstitial prominence Currently stable on room air Asthma history no acute exacerbation nebs as needed DVT prophylaxisno anticoagulation due to hematuria, SCD Continue Physical therapy Progress Note: Quality VTE Deep Vein Thrombosis/Pulmonary Embolism Present on Admission: No _ (1) Hypertension Qualifiers: Hypertension type: (2) Anemia Qualifiers: Anemia type: Iron deficiency anemia type: Vitamin B12 deficiency anemia type: Folate deficiency anemia type: Bone marrow failure anemia type: Hemolytic anemia type: Other causes of anemia: Chronic kidney disease stage :
--- NOTE | 2018-03-26 19:01 | P.PNNP ---
Subjective Interval history: Patient seen in the afternoon, sitting in the chair, mild abd. pain,not in distress. Physical Exam Vital signs: Vital Signs 03/25/18 19:00 03/25/18 19:20 03/25/18 19:40 Temperature Pulse Rate 80 79 79 Respiratory Rate 19 18 19 Blood Pressure 150/101 H 158/98 H 167/103 H Pulse Oximetry 98 97 97 03/25/18 20:00 03/25/18 20:20 03/25/18 20:40 Temperature Pulse Rate 81 88 80 Respiratory Rate 17 18 18 Blood Pressure 174/108 H 165/102 H 161/104 H Pulse Oximetry 98 97 98 03/25/18 21:00 03/25/18 21:20 03/25/18 21:40 Temperature Pulse Rate 80 107 H 83 Respiratory Rate 18 17 18 Blood Pressure 183/104 H 159/104 H 173/103 H Pulse Oximetry 98 98 98 03/25/18 22:00 03/25/18 22:08 03/25/18 23:00 Temperature Pulse Rate 118 H 107 H 93 H Respiratory Rate 21 19 27 H Blood Pressure 156/100 H Pulse Oximetry 98 98 96 03/25/18 23:08 03/26/18 00:00 03/26/18 00:07 Temperature Pulse Rate 99 H 87 87 Respiratory Rate 23 24 24 Blood Pressure 144/91 H 156/90 H Pulse Oximetry 96 96 96 03/26/18 01:00 03/26/18 01:07 03/26/18 02:00 Temperature 97.9 F Pulse Rate 105 H 98 H 116 H Respiratory Rate 14 16 30 H Blood Pressure 144/91 H Pulse Oximetry 97 96 96 03/26/18 02:07 03/26/18 03:00 03/26/18 03:07 Temperature Pulse Rate 87 115 H 93 H Respiratory Rate 23 30 H 20 Blood Pressure 145/84 H 149/91 H Pulse Oximetry 96 95 96 03/26/18 04:00 03/26/18 04:08 03/26/18 05:00 Temperature 98.0 F Pulse Rate 83 85 83 Respiratory Rate 23 22 20 Blood Pressure 147/94 H Pulse Oximetry 96 96 96 03/26/18 05:08 03/26/18 06:00 03/26/18 06:07 Temperature Pulse Rate 83 88 84 Respiratory Rate 20 21 20 Blood Pressure 157/88 H 160/85 H Pulse Oximetry 97 97 97 03/26/18 07:00 03/26/18 07:07 03/26/18 08:00 Temperature 98.6 F Pulse Rate 75 84 78 Respiratory Rate 20 20 20 Blood Pressure 148/91 H Pulse Oximetry 96 97 97 03/26/18 08:07 03/26/18 09:00 03/26/18 09:07 Temperature Pulse Rate 77 80 78 Respiratory Rate 21 20 16 Blood Pressure 170/86 H 137/88 Pulse Oximetry 97 97 97 03/26/18 10:00 03/26/18 10:07 03/26/18 11:00 Temperature Pulse Rate 83 81 87 Respiratory Rate 20 20 18 Blood Pressure 164/83 H Pulse Oximetry 97 97 97 03/26/18 11:08 03/26/18 12:00 03/26/18 12:08 Temperature Pulse Rate 90 99 H 91 H Respiratory Rate 18 17 19 Blood Pressure 133/87 131/85 Pulse Oximetry 97 97 97 03/26/18 13:00 03/26/18 13:14 03/26/18 14:00 Temperature Pulse Rate 104 H 95 H 93 H Respiratory Rate 19 15 11 L Blood Pressure 143/81 H Pulse Oximetry 97 97 97 03/26/18 14:07 03/26/18 15:00 03/26/18 15:20 Temperature Pulse Rate 93 H 113 H 85 Respiratory Rate 12 23 20 Blood Pressure 140/82 156/88 H Pulse Oximetry 97 98 96 03/26/18 15:57 03/26/18 16:00 03/26/18 16:07 Temperature 98.1 F Pulse Rate 116 H 105 H Respiratory Rate 27 H 29 H Blood Pressure 144/87 H Pulse Oximetry 97 97 03/26/18 17:00 03/26/18 17:07 03/26/18 18:00 Temperature Pulse Rate 84 101 H 88 Respiratory Rate 18 21 21 Blood Pressure 138/86 Pulse Oximetry 97 97 97 Intake & Output 03/25/18 03/26/18 03/26/18 18:59 06:59 18:59 Intake Total 450 / 450 1870 / 1870 275 / 275 Output Total 1025 / 1025 2600 / 2600 2675 / 2675 Balance -575 / -575 -730 / -730 -2400 / -2400 Weight 63.1 kg Intake: IV 1000 / 1000 D5W/1/2 NS Inj 1,000 ML @ 50 1000 / 1000 mls/hr IV.CONT .Q20H [facility] Rx#: [id number] Oral 450 / 450 720 / 720 250 / 250 Bladder Irrigation Fluid - 150 / 150 25 / 25 Amount Retained 3-way Urethral 150 / 150 25 / 25 Output: Hemodialysis Amount 1999 / 1999 Urine Amount (Catheter) 200 / 200 200 / 200 2575 / 2575 3-way Urethral 200 / 200 200 / 200 2575 / 2575 Urine Amount (Stoma) 825 / 825 400 / 400 100 / 100 Nephrostomy Tube Left 825 / 825 400 / 400 100 / 100 Other: Bladder Irrigation Fluid - Amount Instilled 3-way Urethral 180 1,500 2,600 Bladder Irrigation Fluid - Amount Drained 3-way Urethral 1,350 2,575 Date of Last Bowel Movement 03/24/18 03/25/18 03/25/18 # Bowel Movements 1 # Emeses 2 Narrative: GENERAL: Alert and oriented. Thin SKIN: Warm and dry. NECK: Supple, trachea midline. No JVD CARDIOVASCULAR: Tachycardia. Regular rate and rhythm without murmurs, gallops, or rubs. right IJ vas cath. RESPIRATORY: Breath sounds equal bilaterally. No accessory muscle use. GASTROINTESTINAL: Abdomen soft, non-tender, nondistended. +BS GI: Left nephrostomy tube and indwelling Caldwell catheter/three way with irrigation MUSCULOSKELETAL: No cyanosis, or edema. . - Urinary Catheter Management Indwelling Urethral Catheter Cath placed during this visit: yes Reason for continuing: Other continuation reason Insertion date: 03/09/18 Insertion time: 10:03 3-way Urethral Cath placed during this visit: yes Reason for continuing: Hourly intake/output Insertion date: 03/21/18 Assessment and Plan - Assessment (1) Acute kidney injury Code(s): N17.9 - Acute kidney failure, unspecified Status: Acute Plan: Patient with Acute kidney injury, Post Left Nephrostomy and stent placement. On CBI, Urology following. HD done yesterday, Watch for renal recovery. Creatinine is better, could be due to HD. Continue HD as needed. (2) Hypertension Code(s): I10 - Essential (primary) hypertension Status: Acute Plan: Elevated, hydralazine resumed. (3) Hydronephrosis of left kidney Code(s): N13.30 - Unspecified hydronephrosis Status: Chronic Onset Date: Unknown Plan: Cysto with stent placement. (4) Anemia Code(s): D64.9 - Anemia, unspecified Status: Acute Plan: HGB at 8.8, Transfused PRBC /12 Transfuse for HGB less than 7.0 Epogen with dialysis
[2018-03-26] MEDS: HYDROmorphone PF Inj 0.5 MG/0.5 ML Syringe IV.PUSH PRN ×2 (19:12→23:51)
[2018-03-27 05:56] LABS: Calcium 8.1 mg/dL (8.5-10.1); Carbon Dioxide 29.1 meq/L (21.0-32.0); Potassium 3.3 meq/L (3.5-5.1)
[2018-03-27] MEDS: HYDROmorphone PF Inj 0.5 MG/0.5 ML Syringe IV.PUSH PRN ×4 (08:49→22:19)
[2018-03-27] MEDS: Metoprolol Tartrate 25 MG Tablet PO SCH ×2 (08:51→20:51)
[2018-03-27] MEDS: Senna/Docusate Sodium 8.6/50 MG Tablet PO SCH ×2 (08:51→20:51)
--- NOTE | 2018-03-27 08:57 | P.PNURO ---
Subjective Patient symptoms today: Pt seen and examined. Left PCNT fell out this AM. Objective Vital Signs: Vital Signs 03/26/18 09:00 03/26/18 09:07 03/26/18 10:00 Temperature Pulse Rate 80 78 83 Respiratory Rate 20 16 20 Blood Pressure 137/88 Pulse Oximetry 97 97 97 03/26/18 10:07 03/26/18 11:00 03/26/18 11:08 Temperature Pulse Rate 81 87 90 Respiratory Rate 20 18 18 Blood Pressure 164/83 H 133/87 Pulse Oximetry 97 97 97 03/26/18 12:00 03/26/18 12:08 03/26/18 13:00 Temperature Pulse Rate 99 H 91 H 104 H Respiratory Rate 17 19 19 Blood Pressure 131/85 Pulse Oximetry 97 97 97 03/26/18 13:14 03/26/18 14:00 03/26/18 14:07 Temperature Pulse Rate 95 H 93 H 93 H Respiratory Rate 15 11 L 12 Blood Pressure 143/81 H 140/82 Pulse Oximetry 97 97 97 03/26/18 15:00 03/26/18 15:20 03/26/18 15:57 Temperature 98.1 F Pulse Rate 113 H 85 Respiratory Rate 23 20 Blood Pressure 156/88 H Pulse Oximetry 98 96 03/26/18 16:00 03/26/18 16:07 03/26/18 17:00 Temperature Pulse Rate 116 H 105 H 84 Respiratory Rate 27 H 29 H 18 Blood Pressure 144/87 H Pulse Oximetry 97 97 97 03/26/18 17:07 03/26/18 18:00 03/26/18 18:08 Temperature Pulse Rate 101 H 88 101 H Respiratory Rate 21 21 14 Blood Pressure 138/86 139/93 H Pulse Oximetry 97 97 97 03/26/18 19:00 03/26/18 19:08 03/26/18 20:00 Temperature Pulse Rate 112 H 119 H 82 Respiratory Rate 17 27 H 22 Blood Pressure 152/85 H Pulse Oximetry 98 97 97 03/26/18 20:07 03/26/18 21:00 03/26/18 21:07 Temperature Pulse Rate 84 85 86 Respiratory Rate 16 19 20 Blood Pressure 145/81 H 167/86 H Pulse Oximetry 97 97 97 03/26/18 22:00 03/26/18 22:07 03/26/18 23:00 Temperature Pulse Rate 88 88 92 H Respiratory Rate 16 18 20 Blood Pressure 133/86 Pulse Oximetry 97 97 97 03/26/18 23:07 03/27/18 00:00 03/27/18 01:00 Temperature 98.2 F Pulse Rate 117 H 79 82 Respiratory Rate 16 13 18 Blood Pressure 145/85 H Pulse Oximetry 98 96 97 03/27/18 02:00 03/27/18 03:00 03/27/18 04:00 Temperature 98.4 F Pulse Rate 71 74 73 Respiratory Rate 16 15 16 Blood Pressure Pulse Oximetry 97 98 98 03/27/18 05:00 03/27/18 06:00 03/27/18 07:00 Temperature Pulse Rate 67 81 76 Respiratory Rate 21 17 18 Blood Pressure Pulse Oximetry 98 97 97 Intake & Output 03/26/18 03/27/18 03/27/18 18:59 06:59 18:59 Intake Total 275 / 275 745 / 745 Output Total 2675 / 2675 75 / 75 Balance -2400 / -2400 670 / 670 Weight 59.4 kg Intake: Oral 250 / 250 720 / 720 Bladder Irrigation Fluid - 25 / 25 25 / 25 Amount Retained 3-way Urethral 25 / 25 25 / 25 Output: Urine Amount (Catheter) 2575 / 2575 3-way Urethral 2575 / 2575 Urine Amount (Stoma) 100 / 100 75 / 75 Nephrostomy Tube Left 100 / 100 75 / 75 Other: Bladder Irrigation Fluid - Amount Instilled 3-way Urethral 2,600 2,000 Bladder Irrigation Fluid - Amount Drained 3-way Urethral 2,575 1,975 Date of Last Bowel Movement 03/25/18 03/27/18 # Bowel Movements 1 Result Diagrams: 03/25/18 04:19 03/27/18 05:11 Medications and IVs: Active Medications Generic Name Dose Route Start Last Admin Trade Name Freq PRN Reason Stop Dose Admin Acetaminophen 650 mg 03/20/18 07:59 Tylenol PO Q4H PRN SEE LABEL COMMENTS Acetaminophen 650 mg 03/07/18 23:05 03/24/18 19:01 Tylenol PO 650 mg Q4H PRN Administration Temp > 100.4 Acetaminophen 650 mg 03/17/18 11:03 Tylenol PO UNSCH PRN SEE LABEL COMMENTS Belladonna Alkaloids/Opium 60 mg 03/10/18 15:43 03/23/18 09:08 B & O Supp RECTAL 60 mg Q6HR PRN Administration BLADDER SPASM Diphenhydramine HCl 25 mg 03/20/18 07:59 Benadryl PO Q4H PRN SEE LABEL COMMENTS Diphenhydramine HCl 25 mg 03/17/18 11:03 03/22/18 12:53 Benadryl PO 25 mg UNSCH PRN Administration SEE LABEL COMMENTS Epoetin Brandt 6,000 unit 03/17/18 11:03 03/25/18 21:40 Epogen Inj IV.PUSH 6,000 unit UNSCH PRN Administration SEE LABEL COMMENTS Furosemide 40 mg 03/15/18 09:00 03/18/18 09:53 Lasix Inj IV.PUSH Not Given BID@0900,1800 [facility]LOE Gelatin 1 foam 03/17/18 11:03 Gelfoam 12 Mm/7 Mm Topical TOPICAL PRN PRN help stop bleeding from site Gentamicin Sulfate 20 mg 03/17/18 11:03 03/25/18 21:40 Gentamicin Inj OTHER 20 mg WITH DIALYSIS PRN Administration Dwell Gentamycin Lock Hydralazine HCl 50 mg 03/24/18 14:16 03/26/18 17:47 Apresoline PO 50 mg TID CHLOE Administration Hydralazine HCl 10 mg 03/17/18 18:44 03/17/18 19:59 Apresoline Inj IV.PUSH 10 mg Q30M PRN Administration SBP>180, DBP>110 Hydromorphone HCl 0.5 mg 03/18/18 10:15 03/26/18 23:51 Dilaudid Pf Inj IV.PUSH 0.5 mg Q4H PRN Administration BREAKTHROUGH PAIN Dextrose/Sodium Chloride 1,000 mls @ 50 mls/hr 03/15/18 17:06 03/26/18 23:52 D5w/1/2 Ns Inj IV.CONT 50 mls/hr .Q20H [facility]LOE Administration Albumin Human 100 mls @ 60 mls/hr 03/17/18 11:03 Flexbumin 25% Inj IV.SIG WITH DIALYSIS PRN hypotension / volume replace Sodium Chloride 1,000 mls @ 0 mls/hr 03/17/18 11:03 Ns Inj OTHER .Q0M PRN for prime and rinse back As Directed Sodium Chloride 1,000 mls @ 200 mls/hr 03/17/18 11:03 Ns Inj OTHER .Q5H PRN for dialyzer flush PRN Sodium Chloride 1,000 mls @ 0 mls/hr 03/17/18 11:03 Ns Inj IV.CONT .Q0M PRN hypotension / volume replace As Directed Mannitol 12.5 gm 03/17/18 11:03 Mannitol Inj IV.PUSH UNSCH PRN hypotension / volume replace Metoclopramide HCl 5 mg 03/26/18 22:00 03/27/18 05:32 Reglan Inj IV.PUSH 5 mg Q8HR CHLOE Administration Protocol Metoprolol Tartrate 12.5 mg 03/11/18 09:00 03/26/18 21:19 Lopressor PO 12.5 mg BID CHLOE Administration Miscellaneous 1 each 03/11/18 10:00 03/22/18 08:00 Pill Splitter OTHER 1 each UNSCH CHLOE Administration Naloxone HCl 0.4 mg 03/17/18 16:50 Narcan Inj IV.PUSH UNSCH PRN SEE LABEL COMMENTS Nitroglycerin 0.4 mg 03/17/18 11:03 Nitrostat Sl SL Q5M PRN CHEST PAIN Ondansetron HCl 4 mg 03/07/18 23:05 03/26/18 23:51 Zofran Inj IV.PUSH 4 mg Q6H PRN Administration NAUSEA OR VOMITING Oxybutynin Chloride 5 mg 03/17/18 21:00 03/26/18 21:19 Ditropan PO 5 mg BID CHLOE Administration Oxycodone HCl 5 mg 03/18/18 10:16 03/25/18 01:21 Roxicodone PO 5 mg Q4H PRN Administration Acute Pain 1-10 Pantoprazole Sodium 40 mg 03/13/18 15:45 03/26/18 09:11 Protonix PO 40 mg DAILY [facility] Administration Polyethylene Glycol 17 gm 03/09/18 14:24 03/09/18 21:14 Miralax PO 17 gm DAILY PRN Administration Moderate-severe constipation Prochlorperazine Edisylate 5 mg 03/26/18 17:27 03/26/18 17:47 Compazine Inj IV.PUSH 5 mg Q8H PRN Administration SEVERE NAUSEA Senna/Docusate Sodium 1 tab 03/09/18 21:00 03/26/18 21:21 Allyssa-Colace PO Not Given BID [facility] Sodium Chloride 2 ml 03/08/18 09:00 03/26/18 21:20 Ns Flush IV.FLUSH 2 ml BID [facility] Administration Sodium Chloride 2 ml 03/07/18 23:05 03/20/18 21:44 Ns Flush IV.FLUSH 2 ml PRN PRN Administration FLUSH AFTER USING IV ACCESS Sodium Chloride 5 ml 03/17/18 11:03 Ns Flush IV.FLUSH PRN PRN flush each lumen during HD Objective Remarks: CV: sinus tach Abd:soft, mild distension; no rebound Price: old dark blood Ext: neg C/C/E 03/10 CV: sinus tach Abd:soft,less tenderness and distension Price: blood tinged PCNT: bloody 03/10 16:00: SP pains. Bladder not palpable. No SP tenderness. Abd: now non tender LLQ. Bloody urine via nephrostomy, no clots. Bloody urine via price catheter, no clots. 03/11: Scant urine output via Nephrostomy tube. It may not be draining, will wait and see. Fairly good urine output via price catheter. Urine dark blood tinged, no clots. BP varies high to normal, Pulse varies, temp 99. 03/12: See "Subjective" for the Objective. Suspect Vancomycin toxicity causing deterioration in kidney function and decreased urine output. N tube draining dark burgundy urine. PLAN: Dr. Little following the labs. N tube irrigation by IR if needed. 03/13 Abd:soft,nt,nd Left PNCT with blood Price: hematuria 03/14 Abd:soft,nt,nd Left PCNT: bloody Price: blood tinged 03/15 Abd:soft,nt,nd Left PCNT: bloody Price: blood tinged 03/16 Abd:soft,nt,nd Left PCNT: bloody Price: blood tinged 03/17 Abd:soft,nt,nd Left PCNT: bloody Price: blood tinged 03/20 Abd:soft,nt,nd Left PCNT: bloody Price: blood tinged 03/22 Abd:soft,nt,nd Left PCNT: blood tinged Price: clear on slow CBI 03/23 Abd:soft,nt,nd Price: urine clearing on CBI Left PCNT: urine dark; bag leaking 03/24 Abd:soft,nt,nd Price: urine clearing on CBI Left PCNT: urine dark; bag leaking 03/27 Abd:soft,nt,nd Price: urine clearing on CBI Left PCNT: out; dressing applied Assessment and Plan - Assessment (1) Sepsis due to urinary tract infection Code(s): A41.9 - Sepsis, unspecified organism; N39.0 - Urinary tract infection, site not specified Status: Acute Onset Date: ~03/07/18 (2) Hydronephrosis of left kidney Code(s): N13.30 - Unspecified hydronephrosis Status: Chronic (3) 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 Back up plan is to try to place a urinary stent cystoscopically in the OR. However, there is a great possibility that the presumed UPJ stenosis will prevent passage of guide wires and stent. 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 Discussed with Dr. Little. 03/11: N tube may or may not be draining. Sepsis improving. Still having bladder spasms, receiving Morphine. PLAN: Continue same. 03/12 See "Subjective", "Objective". 03/13 37 y.o male with sepsis and h/o horseshoe kidney s/p PCNT placement with hematuria Continue supportive measures for now Transfuse PRBC's today if repeat Hgb is below 8 Monitor u/o; avoid nephrotoxins Will follow. 03/14 37 y.o male with sepsis and horseshoe kidney s/p PCNT with hematuria and ARF Hgb stablized at 8.3 this AM. Creatinine rising to 5.7; u/o dropping Await Nephrology input Monitor u/o Continue conservative measures for now. 03/15 37 y.o male with sepsis and horseshoe kidney s/p PCNT with hematuria and worsening ARF. Creatinine up to 7.2 up from 5.7. Hgb down to 7.8. Will transfuse 1 unit PRBC's. Await Nephrology input Monitor u/o. 03/16 37 y.o male with sepsis and horseshoe kidney s/p PCNT with hematuria and worsening ARF probably due to ATN Continue conservative management from standpoint. No evidence of active bleeding. Will follow. 03/17 37 y.o male with sepsis s/p PCNT with hematuria and ARF Maintain price catheter- urine is clearing and less bloody Continue conservative measures. 03/20 37 y.o male with sepsis s/p PCNT with hematuria and ARF Transfuse [address] scan today Hold Heparin with dialysis. 03/22 37 y.o male s/p cysto with b/l JJ stent insertion with clot evacuation Maintain slow CBI Follow creatinine. Large amount of clot in left collecting system s/p PCNT Continue dialysis for now. Hold heparin with dialysis. Once urine clears will remove PCNT. 03/23 37 y.o male s/p cysto with b/l JJ stent insertion with clot evacuation Maintain slow CBI Continue conservative measures for now Follow labs. B&O suppository for bladder spasm. 03/24 37 y.o male with ARF s/p left PCNT s/p cysto with b/l JJ stent insertion s/p HD yesterday with 1.5 L removed Continue price and PNCT drainage 03/27 37 y.o male with ARF s/p left PCNT s/p cysto with b/l JJ stent insertion. Left PCNT fell out Will leave left PCNT out for now as he has JJ stents in place Ween CBI to off. Will obtain CT scan to evaluate resolution of left renal hematoma.
--- NOTE | 2018-03-27 12:45 | CT ---
EXAM DATE: 03/27/2018 12:31 PM EST AGE/SEX: 37 years / Male INDICATIONS: Bleeding CLINICAL DATA: This is the patient's initial encounter. Patient reports that signs and symptoms have been present for 3 days and indicates a pain score of 5/10. MEDICAL/SURGICAL HISTORY: Seizures. Asthma. Non-responsive. RADIATION DOSE: 4.25 CTDI (mGy) [place] [facility] [place] 03/09/2018. . TECHNIQUE: Multiple contiguous axial images were obtained through the abdomen. Images were obtained using multiple row detector helical technique. Using automated exposure control and adjustment of the mA and/or kV according to patient size, radiation dose was kept as low as reasonably achievable to o btain optimal diagnostic quality images. DICOM format image data is available electronically for rev iew and comparison. FINDINGS: Small bilateral pleural effusions are evident; improvement in the interval Liver and spleen unremarkable. Double-J stents are seen in good position. There is no hydronephrosis on the right portion of the horseshoe kidney. Large hemorrhage persists on the left. Nephrostomy tube has been removed. Double-J stent is in good p osition without hydronephrosis. There is no free fluid in the abdomen. Double-J stents are in good position in the bladder which is decompressed by a Caldwell. Trace free fluid seen in the pelvis. CONCLUSION: 1. Again seen is a large hemorrhage on the left. Nephrostomy tube has been replaced by double-J sten ts. 2. Trace free fluid in the pelvis stable in the interval. 3. Pleural effusions have decreased in size. Electronically signed by: Finesse Arciniega MD Board Certified Radiologist 03/27/2018 12:44 PM EST
[2018-03-27] MEDS: hydrALAZINE 50 MG Tablet PO SCH ×3 (13:52→17:54)
[2018-03-27] MEDS: Dextrose 5%/NaCl 0.45% Inj 1,000 ML IV.CONT SCH (13:52)
--- NOTE | 2018-03-27 16:24 | P.PNNP ---
Subjective Interval history: Seen in AM. Left nephrostomy tube is out. Creatinine remains elevated at 4.4 today. CBI being weaned off. <Wandy Pathak - Last Filed: 03/27/18 16:19> Physical Exam Vital signs: Vital Signs 03/26/18 17:00 03/26/18 17:07 03/26/18 18:00 Temperature Pulse Rate 84 101 H 88 Respiratory Rate 18 21 21 Blood Pressure 138/86 Pulse Oximetry 97 97 97 03/26/18 18:08 03/26/18 19:00 03/26/18 19:08 Temperature Pulse Rate 101 H 112 H 119 H Respiratory Rate 14 17 27 H Blood Pressure 139/93 H 152/85 H Pulse Oximetry 97 98 97 03/26/18 20:00 03/26/18 20:07 03/26/18 21:00 Temperature Pulse Rate 82 84 85 Respiratory Rate 22 16 19 Blood Pressure 145/81 H Pulse Oximetry 97 97 97 03/26/18 21:07 03/26/18 22:00 03/26/18 22:07 Temperature Pulse Rate 86 88 88 Respiratory Rate 20 16 18 Blood Pressure 167/86 H 133/86 Pulse Oximetry 97 97 97 03/26/18 23:00 03/26/18 23:07 03/27/18 00:00 Temperature 98.2 F Pulse Rate 92 H 117 H 79 Respiratory Rate 20 16 13 Blood Pressure 145/85 H Pulse Oximetry 97 98 96 03/27/18 01:00 03/27/18 02:00 03/27/18 03:00 Temperature Pulse Rate 82 71 74 Respiratory Rate 18 16 15 Blood Pressure Pulse Oximetry 97 97 98 03/27/18 04:00 03/27/18 05:00 03/27/18 06:00 Temperature 98.4 F Pulse Rate 73 67 81 Respiratory Rate 16 21 17 Blood Pressure Pulse Oximetry 98 98 97 03/27/18 07:00 03/27/18 07:57 03/27/18 08:00 Temperature Pulse Rate 76 89 87 Respiratory Rate 18 17 20 Blood Pressure 145/91 H Pulse Oximetry 97 97 98 03/27/18 08:09 03/27/18 09:00 03/27/18 09:04 Temperature Pulse Rate 102 H 99 H Respiratory Rate 23 Blood Pressure Pulse Oximetry 99 97 03/27/18 10:00 03/27/18 11:00 03/27/18 12:00 Temperature Pulse Rate 104 H 85 89 Respiratory Rate 18 16 23 Blood Pressure 130/85 Pulse Oximetry 97 98 98 Intake & Output 03/26/18 03/27/18 03/27/18 18:59 06:59 18:59 Intake Total 275 / 275 745 / 745 Output Total 2675 / 2675 75 / 75 Balance -2400 / -2400 670 / 670 Weight 59.4 kg Intake: Oral 250 / 250 720 / 720 Bladder Irrigation Fluid - 25 / 25 25 / 25 Amount Retained 3-way Urethral 25 / 25 25 / 25 Output: Urine Amount (Catheter) 2575 / 2575 3-way Urethral 2575 / 2575 Urine Amount (Stoma) 100 / 100 75 / 75 Nephrostomy Tube Left 100 / 100 75 / 75 Other: Bladder Irrigation Fluid - Amount Instilled 3-way Urethral 2,600 2,000 Bladder Irrigation Fluid - Amount Drained 3-way Urethral 2,575 1,975 Date of Last Bowel Movement 03/25/18 03/27/18 03/26/18 # Bowel Movements 1 Narrative: GENERAL: Alert and oriented. Thin SKIN: Warm and dry. NECK: Supple, trachea midline. No JVD CARDIOVASCULAR: Tachycardia. Regular rate and rhythm without murmurs, gallops, or rubs. right IJ vas cath. RESPIRATORY: Breath sounds equal bilaterally. No accessory muscle use. GASTROINTESTINAL: Abdomen soft, non-tender, nondistended. +BS GI: Left nephrostomy tube and indwelling Caldwell catheter/three way with irrigation MUSCULOSKELETAL: No cyanosis, or edema. . - Urinary Catheter Management Indwelling Urethral Catheter Cath placed during this visit: yes Reason for continuing: Other continuation reason Insertion date: 03/09/18 Insertion time: 10:03 3-way Urethral Cath placed during this visit: yes Reason for continuing: Hourly intake/output Insertion date: 03/21/18 <Wandy Pathak - Last Filed: 03/27/18 16:19> Vital signs: Vital Signs 03/26/18 19:08 03/26/18 20:00 03/26/18 20:07 Temperature Pulse Rate 119 H 82 84 Respiratory Rate 27 H 22 16 Blood Pressure 152/85 H 145/81 H Pulse Oximetry 97 97 97 03/26/18 21:00 03/26/18 21:07 03/26/18 22:00 Temperature Pulse Rate 85 86 88 Respiratory Rate 19 20 16 Blood Pressure 167/86 H Pulse Oximetry 97 97 97 03/26/18 22:07 03/26/18 23:00 03/26/18 23:07 Temperature Pulse Rate 88 92 H 117 H Respiratory Rate 18 20 16 Blood Pressure 133/86 145/85 H Pulse Oximetry 97 97 98 03/27/18 00:00 03/27/18 01:00 03/27/18 02:00 Temperature 98.2 F Pulse Rate 79 82 71 Respiratory Rate 13 18 16 Blood Pressure Pulse Oximetry 96 97 97 03/27/18 03:00 03/27/18 04:00 03/27/18 05:00 Temperature 98.4 F Pulse Rate 74 73 67 Respiratory Rate 15 16 21 Blood Pressure Pulse Oximetry 98 98 98 03/27/18 06:00 03/27/18 07:00 03/27/18 07:57 Temperature Pulse Rate 81 76 89 Respiratory Rate 17 18 17 Blood Pressure 145/91 H Pulse Oximetry 97 97 97 03/27/18 08:00 03/27/18 08:09 03/27/18 09:00 Temperature Pulse Rate 87 102 H Respiratory Rate 20 23 Blood Pressure Pulse Oximetry 98 99 97 03/27/18 09:04 03/27/18 10:00 03/27/18 11:00 Temperature Pulse Rate 99 H 104 H 85 Respiratory Rate 18 16 Blood Pressure Pulse Oximetry 97 98 03/27/18 12:00 03/27/18 12:03 03/27/18 13:00 Temperature Pulse Rate 89 88 76 Respiratory Rate 23 26 H 17 Blood Pressure 130/85 130/85 Pulse Oximetry 98 98 97 03/27/18 14:00 03/27/18 15:00 03/27/18 16:00 Temperature Pulse Rate 101 H 82 105 H Respiratory Rate 22 16 19 Blood Pressure Pulse Oximetry 98 97 97 03/27/18 17:00 Temperature Pulse Rate 86 Respiratory Rate 17 Blood Pressure Pulse Oximetry 98 Intake & Output 03/27/18 03/27/18 03/28/18 06:59 18:59 06:59 Intake Total 745 / 745 660 / 660 Output Total 75 / 75 460 / 460 Balance 670 / 670 200 / 200 Weight 59.4 kg Intake: Oral 720 / 720 660 / 660 Bladder Irrigation Fluid - 25 / 25 Amount Retained 3-way Urethral 25 / 25 Output: Urine 460 / 460 Urine Amount (Stoma) 75 / 75 Nephrostomy Tube Left 75 / 75 Other: Bladder Irrigation Fluid - Amount Instilled 3-way Urethral 2,000 Bladder Irrigation Fluid - Amount Drained 3-way Urethral 1,975 Date of Last Bowel Movement 03/27/18 03/26/18 # Bowel Movements 1 - Urinary Catheter Management Indwelling Urethral Catheter Cath placed during this visit: no 3-way Urethral Cath placed during this visit: no <Jorge Luis Scott - Last Filed: 03/27/18 19:08> Assessment and Plan - Assessment (1) Acute kidney injury Code(s): N17.9 - Acute kidney failure, unspecified Status: Acute Plan: Patient with Acute kidney injury, Post Left Nephrostomy and stent placement. Started HD on 03/17, vas cath 03/17 S/p cysto with stent placement Continue to monitor progress follow BMP Avoid nephrotoxins including IV contrast and NSAIDS CBI will be weaned off, nephrostomy tube out Epogen with dialysis Hemodialysis as needed, plan for tomorrow, labs in AM Watch for renal recovery. (2) Hypertension Code(s): I10 - Essential (primary) hypertension Status: Acute Plan: continue to monitor. Better controlled. (3) Hydronephrosis of left kidney Code(s): N13.30 - Unspecified hydronephrosis Status: Chronic Onset Date: Unknown Plan: Cysto with stent placement. (4) Anemia Code(s): D64.9 - Anemia, unspecified Status: Acute Plan: HGB at stable Transfuse for HGB less than 7.0 Epogen with dialysis Labs in AM <Wandy Pathak - Last Filed: 03/27/18 16:19> - Assessment (1) Acute kidney injury Code(s): N17.9 - Acute kidney failure, unspecified Status: Acute Plan: Patient seen and examined, agree with above. Creatinine still increasing. Nephrostomy came out accidently. Urology following. HD will be in AM. (2) Hypertension Code(s): I10 - Essential (primary) hypertension Status: Acute (3) Hydronephrosis of left kidney Code(s): N13.30 - Unspecified hydronephrosis Status: Chronic Onset Date: Unknown (4) Anemia Code(s): D64.9 - Anemia, unspecified Status: Acute <Jorge Luis Scott - Last Filed: 03/27/18 19:08>
--- NOTE | 2018-03-27 16:28 | P.PNIM ---
Subjective Interval history: Follow up for left renal hemorrhage, acute renal failure. Patient is resting in bed, denies any acute concerns. No fever, chills. CBI is off but Price catheter has significant amount of bloodly fluid. Physical Exam Vital signs: Vital Signs 03/26/18 17:00 03/26/18 17:07 03/26/18 18:00 Temperature Pulse Rate 84 101 H 88 Respiratory Rate 18 21 21 Blood Pressure 138/86 Pulse Oximetry 97 97 97 03/26/18 18:08 03/26/18 19:00 03/26/18 19:08 Temperature Pulse Rate 101 H 112 H 119 H Respiratory Rate 14 17 27 H Blood Pressure 139/93 H 152/85 H Pulse Oximetry 97 98 97 03/26/18 20:00 03/26/18 20:07 03/26/18 21:00 Temperature Pulse Rate 82 84 85 Respiratory Rate 22 16 19 Blood Pressure 145/81 H Pulse Oximetry 97 97 97 03/26/18 21:07 03/26/18 22:00 03/26/18 22:07 Temperature Pulse Rate 86 88 88 Respiratory Rate 20 16 18 Blood Pressure 167/86 H 133/86 Pulse Oximetry 97 97 97 03/26/18 23:00 03/26/18 23:07 03/27/18 00:00 Temperature 98.2 F Pulse Rate 92 H 117 H 79 Respiratory Rate 20 16 13 Blood Pressure 145/85 H Pulse Oximetry 97 98 96 03/27/18 01:00 03/27/18 02:00 03/27/18 03:00 Temperature Pulse Rate 82 71 74 Respiratory Rate 18 16 15 Blood Pressure Pulse Oximetry 97 97 98 03/27/18 04:00 03/27/18 05:00 03/27/18 06:00 Temperature 98.4 F Pulse Rate 73 67 81 Respiratory Rate 16 21 17 Blood Pressure Pulse Oximetry 98 98 97 03/27/18 07:00 03/27/18 07:57 03/27/18 08:00 Temperature Pulse Rate 76 89 87 Respiratory Rate 18 17 20 Blood Pressure 145/91 H Pulse Oximetry 97 97 98 03/27/18 08:09 03/27/18 09:00 03/27/18 09:04 Temperature Pulse Rate 102 H 99 H Respiratory Rate 23 Blood Pressure Pulse Oximetry 99 97 03/27/18 10:00 03/27/18 11:00 03/27/18 12:00 Temperature Pulse Rate 104 H 85 89 Respiratory Rate 18 16 23 Blood Pressure 130/85 Pulse Oximetry 97 98 98 Intake & Output 03/26/18 03/27/18 03/27/18 18:59 06:59 18:59 Intake Total 275 / 275 745 / 745 Output Total 2675 / 2675 75 / 75 Balance -2400 / -2400 670 / 670 Weight 59.4 kg Intake: Oral 250 / 250 720 / 720 Bladder Irrigation Fluid - 25 / 25 25 / 25 Amount Retained 3-way Urethral 25 / 25 25 / 25 Output: Urine Amount (Catheter) 2575 / 2575 3-way Urethral 2575 / 2575 Urine Amount (Stoma) 100 / 100 75 / 75 Nephrostomy Tube Left 100 / 100 75 / 75 Other: Bladder Irrigation Fluid - Amount Instilled 3-way Urethral 2,600 2,000 Bladder Irrigation Fluid - Amount Drained 3-way Urethral 2,575 1,975 Date of Last Bowel Movement 03/25/18 03/27/18 03/26/18 # Bowel Movements 1 Narrative: GENERAL: Thin male resting in bed, NAD. SKIN: Warm and dry. HEENT: pale,anicteric NECK: Supple, trachea midline. No JVD or lymphadenopathy. CARDIOVASCULAR: Tachycardia,S1S2 normal,no murmurs. RESPIRATORY: CTAB,no rales GASTROINTESTINAL: Abdomen soft, non-tender, nondistended. GUN:price cath in situ, bloody fluid. MUSCULOSKELETAL: No cyanosis,1+ pedal edema. BACK: Nontender without obvious deformity. No CVA tenderness. Urinary Catheter Management Indwelling Urethral Catheter: Cath placed during this visit: yes Reason for continuing: Other continuation reason Insertion date: 03/09/18 Insertion time: 10:03 3-way Urethral: Cath placed during this visit: yes Reason for continuing: Hourly intake/output Insertion date: 03/21/18 Results Labs CBC & Chem 7: 03/25/18 04:19 03/27/18 05:11 Imaging Imaging: Impressions Abdomen/Pelvis CT 03/27/18 00:00 CONCLUSION: 1. Again seen is a large hemorrhage on the left. Nephrostomy tube has been replaced by double-J stents. 2. Trace free fluid in the pelvis stable in the interval. 3. Pleural effusions have decreased in size. Procedures Procedures: 03/08percutaneous nephrostomy in the left kidney 03/16 upper endoscopy 03/17 right IJ Vas-Cath 03/21 Cystoscopy with clot retention with bilateral retrograde studies, right ureteral dilatation, bilateral double-J stent insertio Assessment and Plan (1) Sepsis due to urinary tract infection: Code(s): A41.9 - Sepsis, unspecified organism; N39.0 - Urinary tract infection, site not specified Status: Acute Onset Date: ~03/07/18 (2) Hydronephrosis of left kidney: Code(s): N13.30 - Unspecified hydronephrosis Status: Chronic Onset Date: Unknown (3) Horseshoe kidney: Code(s): Q63.1 - Lobulated, fused and horseshoe kidney Status: Chronic Onset Date: Unknown (4) Painful bladder spasm: Code(s): R30.1 - Vesical tenesmus Status: Acute Onset Date: ~03/10/18 Plan 37-year-old male presents with complaint of abdominal pain hematuria found to be septic due to pyelonephritis with 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 He was admitted and seen by urology who arranged for percutaneous nephrostomy tube by IR on 03/08. Subsequently, patient continued to have gross hematuria require transfusion 2 units on 03/08 first and then again 2 units on March 11. Patient also developed acute renal failure and symptoms of dysphagia Septic shock with hypotension responsive to fluids with presenting lactic acid of 6.9 due to pyelonephritis completed Zosyn course, Last vancomycin dose was 2/2 and stopped due to acute renal failure, blood cultures negative, urine culture negative Severe hydronephrosis with UPJ obstruction with left horseshoe kidney status post percutaneous nephrostomy tube placement by IR on 03/08. -Discussed with urology. Repeat CT abd/pelvis shows significant hemorrhage inside the left kidney. -03/21 status post cystoscope with stenting by urology. Currently off CBI. Acute renal failure likely due to acute tubular necrosis vancomycin and sepsis and previous obstruction with worsening creatinine to 7 patient continues to have urine output. -Hemodialysis tomorrow. -Nephrology monitoring. Creatinine is slightly up from 3.52. Anemia due to acute blood loss - status post total of 7 units of total transfusionwill monitor hemoglobin remained stable 03/25, 9.6 - Labs in the AM. Severe protein calorie malnutrition with albumin 2.0, generalized weakness continue mighty shakes supplements, appreciate dietitian recommendations Dysphagianormal barium swallow, Continue Protonix EGD 03/16 showed esophageal stricture status post dilatation biopsy pending now tolerating solid food Hypertension history -controlled, continue hydralazine metoprolol Bilateral pleural effusion with bibasilar atelectasisencourage incentive spirometry usecurrently on Lasix, decrease IVF Fluid removed with dialysis Chest x-ray reviewed showed small pleural effusion with diffuse interstitial prominence Currently stable on room air Asthma history no acute exacerbation nebs as needed DVT prophylaxisno anticoagulation due to hematuria, SCD Continue Physical therapy Progress Note: Quality VTE Deep Vein Thrombosis/Pulmonary Embolism Present on Admission: No
[2018-03-28] MEDS: Belladonna Alkaloid/Opium 60 MG Supp RECTAL PRN (02:16)
[2018-03-28 06:20] LABS: Baso # (Auto) 0.1 th/mm3 (0.0-0.2); Baso % (Auto) 0.9 % (0.0-2.0); Eos # (Auto) 0.2 th/mm3 (0.0-0.4); Eos % (Auto) 1.1 % (0.0-4.0); Hematocrit 30.1 % (39.0-51.0); Hemoglobin 10.1 gm/dL (13.0-17.0); Lymph # (Auto) 0.9 th/mm3 (1.0-4.8); Lymph % (Auto) 6.2 % (9.0-44.0); Mean Corpuscular HGB Conc 33.6 % (32.0-36.0); Mean Corpuscular Hemoglobin 29.7 pg (27.0-34.0); Mean Corpuscular Volume 88.5 fL (80.0-100.0); Mean Platelet Volume 8.5 fL (7.0-11.0); Mono # (Auto) 1.2 th/mm3 (0.0-0.9); Mono % (Auto) 8.4 % (0.0-8.0); Neut # (Auto) 12.4 th/mm3 (1.8-7.7); Neut % (Auto) 83.4 % (16.0-70.0); Platelet Count 310 th/mm3 (150-450); Red Cell Distribution Width 16.2 % (11.6-17.2); White Blood Count 14.9 th/mm3 (4.0-11.0)
[2018-03-28 06:52] LABS: Albumin 2.9 g/dL (3.4-5.0); Calcium 8.3 mg/dL (8.5-10.1); Carbon Dioxide 27.5 meq/L (21.0-32.0); Phosphorus 3.8 mg/dL (2.5-4.9); Potassium 3.6 meq/L (3.5-5.1)
[2018-03-28] MEDS: Dextrose 5%/NaCl 0.45% Inj 1,000 ML IV.CONT SCH ×2 (07:45→08:09)
[2018-03-28] MEDS: HYDROmorphone PF Inj 0.5 MG/0.5 ML Syringe IV.PUSH PRN ×3 (08:07→23:51)
[2018-03-28] MEDS: hydrALAZINE 50 MG Tablet PO SCH ×3 (08:08→18:15)
[2018-03-28] MEDS: Senna/Docusate Sodium 8.6/50 MG Tablet PO SCH ×2 (08:08→21:28)
[2018-03-28] MEDS: Metoprolol Tartrate 25 MG Tablet PO SCH ×2 (08:08→21:28)
--- NOTE | 2018-03-28 13:02 | P.PNURO ---
Subjective Patient symptoms today: Pt seen and examined. Feels ok. No pain at present. CBI off. Objective Vital Signs: Vital Signs 03/27/18 13:00 03/27/18 14:00 03/27/18 15:00 Temperature Pulse Rate 76 101 H 82 Respiratory Rate 17 22 16 Blood Pressure Pulse Oximetry 97 98 97 03/27/18 16:00 03/27/18 17:00 03/27/18 18:40 Temperature Pulse Rate 105 H 86 Respiratory Rate 19 17 Blood Pressure 155/94 H Pulse Oximetry 97 98 03/27/18 18:41 03/27/18 19:00 03/27/18 20:00 Temperature 98.5 F Pulse Rate 93 H 78 81 Respiratory Rate 16 14 37 H Blood Pressure 146/88 H Pulse Oximetry 97 98 03/27/18 20:46 03/27/18 21:00 03/27/18 22:00 Temperature Pulse Rate 90 117 H 108 H Respiratory Rate 20 20 23 Blood Pressure 146/88 H 146/88 H Pulse Oximetry 98 98 97 03/27/18 23:00 03/27/18 23:43 03/28/18 00:00 Temperature Pulse Rate 75 98 H 94 H Respiratory Rate 20 15 15 Blood Pressure 152/88 H Pulse Oximetry 97 97 97 03/28/18 01:00 03/28/18 02:00 03/28/18 02:01 Temperature Pulse Rate 102 H 110 H 108 H Respiratory Rate 14 22 16 Blood Pressure 167/95 H Pulse Oximetry 97 98 97 03/28/18 03:00 03/28/18 04:00 03/28/18 05:00 Temperature 98.5 F Pulse Rate 108 H 76 79 Respiratory Rate 16 19 18 Blood Pressure 156/93 H Pulse Oximetry 97 97 97 03/28/18 05:19 03/28/18 06:00 03/28/18 07:00 Temperature Pulse Rate 85 80 100 H Respiratory Rate 19 18 23 Blood Pressure 156/93 H Pulse Oximetry 98 97 97 03/28/18 07:42 03/28/18 08:00 03/28/18 08:19 Temperature 98.7 F Pulse Rate 86 77 Respiratory Rate 20 17 Blood Pressure 159/90 H 159/90 H Pulse Oximetry 97 97 99 03/28/18 09:00 03/28/18 09:09 03/28/18 09:14 Temperature Pulse Rate 90 89 87 Respiratory Rate 15 17 Blood Pressure 126/81 Pulse Oximetry 97 97 03/28/18 10:00 03/28/18 10:40 03/28/18 10:51 Temperature Pulse Rate 92 H 105 H Respiratory Rate 16 19 Blood Pressure 136/84 Pulse Oximetry 97 97 03/28/18 11:00 Temperature Pulse Rate 85 Respiratory Rate 16 Blood Pressure Pulse Oximetry 97 Intake & Output 03/27/18 03/28/18 03/28/18 18:59 06:59 18:59 Intake Total 660 / 660 1000 / 1000 Output Total 460 / 460 600 / 600 Balance 200 / 200 -600 / -600 1000 / 1000 Weight 57.6 kg Intake: IV 1000 / 1000 D5W/1/2 NS Inj 1,000 ML @ 50 1000 / 1000 mls/hr IV.CONT .Q20H CHLOE Rx#: [id number] Oral 660 / 660 Output: Urine 460 / 460 Urine Amount (Catheter) 600 / 600 Indwelling Urethral Catheter 600 / 600 Other: Date of Last Bowel Movement 03/26/18 03/28/18 03/26/18 # Bowel Movements 1 Result Diagrams: 03/28/18 06:06 03/28/18 06:06 Medications and IVs: Active Medications Generic Name Dose Route Start Last Admin Trade Name Freq PRN Reason Stop Dose Admin Acetaminophen 650 mg 03/20/18 07:59 Tylenol PO Q4H PRN SEE LABEL COMMENTS Acetaminophen 650 mg 03/07/18 23:05 03/24/18 19:01 Tylenol PO 650 mg Q4H PRN Administration Temp > 100.4 Acetaminophen 650 mg 03/17/18 11:03 Tylenol PO UNSCH PRN SEE LABEL COMMENTS Belladonna Alkaloids/Opium 60 mg 03/10/18 15:43 03/28/18 02:16 B & O Supp RECTAL 60 mg Q6HR PRN Administration BLADDER SPASM Diphenhydramine HCl 25 mg 03/20/18 07:59 Benadryl PO Q4H PRN SEE LABEL COMMENTS Diphenhydramine HCl 25 mg 03/17/18 11:03 03/22/18 12:53 Benadryl PO 25 mg UNSCH PRN Administration SEE LABEL COMMENTS Epoetin Brandt 6,000 unit 03/17/18 11:03 03/25/18 21:40 Epogen Inj IV.PUSH 6,000 unit UNSCH PRN Administration SEE LABEL COMMENTS Furosemide 40 mg 03/15/18 09:00 03/18/18 09:53 Lasix Inj IV.PUSH Not Given BID@0900,1800 CHLOE Gelatin 1 foam 03/17/18 11:03 Gelfoam 12 Mm/7 Mm Topical TOPICAL PRN PRN help stop bleeding from site Gentamicin Sulfate 20 mg 03/17/18 11:03 03/25/18 21:40 Gentamicin Inj OTHER 20 mg WITH DIALYSIS PRN Administration Dwell Gentamycin Lock Hydralazine HCl 50 mg 03/24/18 14:16 03/28/18 08:08 Apresoline PO 50 mg TID CHLOE Administration Hydralazine HCl 10 mg 03/17/18 18:44 03/17/18 19:59 Apresoline Inj IV.PUSH 10 mg Q30M PRN Administration SBP>180, DBP>110 Hydromorphone HCl 0.5 mg 03/18/18 10:15 03/28/18 08:07 Dilaudid Pf Inj IV.PUSH 0.5 mg Q4H PRN Administration BREAKTHROUGH PAIN Dextrose/Sodium Chloride 1,000 mls @ 50 mls/hr 03/15/18 17:06 03/28/18 08:09 D5w/1/2 Ns Inj IV.CONT 50 mls/hr .Q20H CHLOE Administration Albumin Human 100 mls @ 60 mls/hr 03/17/18 11:03 Flexbumin 25% Inj IV.SIG WITH DIALYSIS PRN hypotension / volume replace Sodium Chloride 1,000 mls @ 0 mls/hr 03/17/18 11:03 Ns Inj OTHER .Q0M PRN for prime and rinse back As Directed Sodium Chloride 1,000 mls @ 200 mls/hr 03/17/18 11:03 Ns Inj OTHER .Q5H PRN for dialyzer flush PRN Sodium Chloride 1,000 mls @ 0 mls/hr 03/17/18 11:03 Ns Inj IV.CONT .Q0M PRN hypotension / volume replace As Directed Mannitol 12.5 gm 03/17/18 11:03 Mannitol Inj IV.PUSH UNSCH PRN hypotension / volume replace Metoclopramide HCl 5 mg 03/26/18 22:00 03/28/18 07:45 Reglan Inj IV.PUSH 5 mg Q8HR CHLOE Administration Protocol Metoprolol Tartrate 12.5 mg 03/11/18 09:00 03/28/18 08:08 Lopressor PO 12.5 mg BID CHLOE Administration Miscellaneous 1 each 03/11/18 10:00 03/22/18 08:00 Pill Splitter OTHER 1 each UNSCH CHLOE Administration Naloxone HCl 0.4 mg 03/17/18 16:50 Narcan Inj IV.PUSH UNSCH PRN SEE LABEL COMMENTS Nitroglycerin 0.4 mg 03/17/18 11:03 Nitrostat Sl SL Q5M PRN CHEST PAIN Ondansetron HCl 4 mg 03/07/18 23:05 03/27/18 18:46 Zofran Inj IV.PUSH 4 mg Q6H PRN Administration NAUSEA OR VOMITING Oxybutynin Chloride 5 mg 03/17/18 21:00 03/28/18 08:08 Ditropan PO 5 mg BID CHLOE Administration Oxycodone HCl 5 mg 03/18/18 10:16 03/27/18 23:45 Roxicodone PO 5 mg Q4H PRN Administration Acute Pain 1-10 Pantoprazole Sodium 40 mg 03/13/18 15:45 03/28/18 08:08 Protonix PO 40 mg DAILY CHLOE Administration Polyethylene Glycol 17 gm 03/09/18 14:24 03/09/18 21:14 Miralax PO 17 gm DAILY PRN Administration Moderate-severe constipation Prochlorperazine Edisylate 5 mg 03/26/18 17:27 03/27/18 18:48 Compazine Inj IV.PUSH 5 mg Q8H PRN Administration SEVERE NAUSEA Senna/Docusate Sodium 1 tab 03/09/18 21:00 03/28/18 08:08 Allyssa-Colace PO 1 tab BID CHLOE Administration Sodium Chloride 2 ml 03/08/18 09:00 03/28/18 08:08 Ns Flush IV.FLUSH 2 ml BID CHLOE Administration Sodium Chloride 2 ml 03/07/18 23:05 03/20/18 21:44 Ns Flush IV.FLUSH 2 ml PRN PRN Administration FLUSH AFTER USING IV ACCESS Sodium Chloride 5 ml 03/17/18 11:03 Ns Flush IV.FLUSH PRN PRN flush each lumen during HD Objective Remarks: CV: sinus tach Abd:soft, mild distension; no rebound Price: old dark blood Ext: neg C/C/E 2/ CV: sinus tach Abd:soft,less tenderness and distension Price: blood tinged PCNT: bloody 03/10 16:00: SP pains. Bladder not palpable. No SP tenderness. Abd: now non tender LLQ. Bloody urine via nephrostomy, no clots. Bloody urine via price catheter, no clots. 03/11: Scant urine output via Nephrostomy tube. It may not be draining, will wait and see. Fairly good urine output via price catheter. Urine dark blood tinged, no clots. BP varies high to normal, Pulse varies, temp 99. 03/12: See "Subjective" for the Objective. Suspect Vancomycin toxicity causing deterioration in kidney function and decreased urine output. N tube draining dark burgundy urine. PLAN: Dr. Little following the labs. N tube irrigation by IR if needed. 03/13 Abd:soft,nt,nd Left PNCT with blood Price: hematuria 03/14 Abd:soft,nt,nd Left PCNT: bloody Price: blood tinged 03/15 Abd:soft,nt,nd Left PCNT: bloody Price: blood tinged 03/16 Abd:soft,nt,nd Left PCNT: bloody Price: blood tinged 03/17 Abd:soft,nt,nd Left PCNT: bloody Price: blood tinged 03/20 Abd:soft,nt,nd Left PCNT: bloody Price: blood tinged 03/22 Abd:soft,nt,nd Left PCNT: blood tinged Price: clear on slow CBI 03/23 Abd:soft,nt,nd Price: urine clearing on CBI Left PCNT: urine dark; bag leaking 03/24 Abd:soft,nt,nd Price: urine clearing on CBI Left PCNT: urine dark; bag leaking 03/27 Abd:soft,nt,nd Price: urine clearing on CBI Left PCNT: out; dressing applied 03/28 Abd:soft,nt,nd Price: Dark bloody urine; no clots noted Assessment and Plan - Assessment (1) Sepsis due to urinary tract infection Code(s): A41.9 - Sepsis, unspecified organism; N39.0 - Urinary tract infection, site not specified Status: Acute Onset Date: ~03/07/18 (2) Hydronephrosis of left kidney Code(s): N13.30 - Unspecified hydronephrosis Status: Chronic (3) 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 Back up plan is to try to place a urinary stent cystoscopically in the OR. However, there is a great possibility that the presumed UPJ stenosis will prevent passage of guide wires and stent. 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 Discussed with Dr. Little. 03/11: N tube may or may not be draining. Sepsis improving. Still having bladder spasms, receiving Morphine. PLAN: Continue same. 03/12 See "Subjective", "Objective". 03/13 37 y.o male with sepsis and h/o horseshoe kidney s/p PCNT placement with hematuria Continue supportive measures for now Transfuse PRBC's today if repeat Hgb is below 8 Monitor u/o; avoid nephrotoxins Will follow. 03/14 37 y.o male with sepsis and horseshoe kidney s/p PCNT with hematuria and ARF Hgb stablized at 8.3 this AM. Creatinine rising to 5.7; u/o dropping Await Nephrology input Monitor u/o Continue conservative measures for now. 03/15 37 y.o male with sepsis and horseshoe kidney s/p PCNT with hematuria and worsening ARF. Creatinine up to 7.2 up from 5.7. Hgb down to 7.8. Will transfuse 1 unit PRBC's. Await Nephrology input Monitor u/o. 03/16 37 y.o male with sepsis and horseshoe kidney s/p PCNT with hematuria and worsening ARF probably due to ATN Continue conservative management from standpoint. No evidence of active bleeding. Will follow. 03/17 37 y.o male with sepsis s/p PCNT with hematuria and ARF Maintain price catheter- urine is clearing and less bloody Continue conservative measures. 03/20 37 y.o male with sepsis s/p PCNT with hematuria and ARF Transfuse [address] scan today Hold Heparin with dialysis. 03/22 37 y.o male s/p cysto with b/l JJ stent insertion with clot evacuation Maintain slow CBI Follow creatinine. Large amount of clot in left collecting system s/p PCNT Continue dialysis for now. Hold heparin with dialysis. Once urine clears will remove PCNT. 03/23 37 y.o male s/p cysto with b/l JJ stent insertion with clot evacuation Maintain slow CBI Continue conservative measures for now Follow labs. B&O suppository for bladder spasm. 03/24 37 y.o male with ARF s/p left PCNT s/p cysto with b/l JJ stent insertion s/p HD yesterday with 1.5 L removed Continue price and PNCT drainage 03/27 37 y.o male with ARF s/p left PCNT s/p cysto with b/l JJ stent insertion. Left PCNT fell out Will leave left PCNT out for now as he has JJ stents in place Ween CBI to off. Will obtain CT scan to evaluate resolution of left renal hematoma. 03/28 37 y.o male with ARF s/p left PCNT s/p cysto with b/l JJ stent insertion. Left PCNT fell out CT scan revealed persistent left renal hematoma s/p PCNT; JJ stents in place Follow Creatinine; HD per renal Continue conservative measures.
--- NOTE | 2018-03-28 15:27 | P.PNIM ---
Subjective Interval history: Follow up for left renal hemorrhage, acute renal failure. Patient has no acute concerns. Per nursing he does not have much appetite. He says that the food is too dry. Also he does not have much appetite. Denies any fever or chills. He continues to make urine. He is not on CBI currently. Likely hemodialysis today. Physical Exam Vital signs: Vital Signs 03/27/18 16:00 03/27/18 17:00 03/27/18 18:40 Temperature Pulse Rate 105 H 86 Respiratory Rate 19 17 Blood Pressure 155/94 H Pulse Oximetry 97 98 03/27/18 18:41 03/27/18 19:00 03/27/18 20:00 Temperature 98.5 F Pulse Rate 93 H 78 81 Respiratory Rate 16 14 37 H Blood Pressure 146/88 H Pulse Oximetry 97 98 03/27/18 20:46 03/27/18 21:00 03/27/18 22:00 Temperature Pulse Rate 90 117 H 108 H Respiratory Rate 20 20 23 Blood Pressure 146/88 H 146/88 H Pulse Oximetry 98 98 97 03/27/18 23:00 03/27/18 23:43 03/28/18 00:00 Temperature Pulse Rate 75 98 H 94 H Respiratory Rate 20 15 15 Blood Pressure 152/88 H Pulse Oximetry 97 97 97 03/28/18 01:00 03/28/18 02:00 03/28/18 02:01 Temperature Pulse Rate 102 H 110 H 108 H Respiratory Rate 14 22 16 Blood Pressure 167/95 H Pulse Oximetry 97 98 97 03/28/18 03:00 03/28/18 04:00 03/28/18 05:00 Temperature 98.5 F Pulse Rate 108 H 76 79 Respiratory Rate 16 19 18 Blood Pressure 156/93 H Pulse Oximetry 97 97 97 03/28/18 05:19 03/28/18 06:00 03/28/18 07:00 Temperature Pulse Rate 85 80 100 H Respiratory Rate 19 18 23 Blood Pressure 156/93 H Pulse Oximetry 98 97 97 03/28/18 07:42 03/28/18 08:00 03/28/18 08:19 Temperature 98.7 F Pulse Rate 86 77 Respiratory Rate 20 17 Blood Pressure 159/90 H 159/90 H Pulse Oximetry 97 97 99 03/28/18 09:00 03/28/18 09:09 03/28/18 09:14 Temperature Pulse Rate 90 89 87 Respiratory Rate 15 17 Blood Pressure 126/81 Pulse Oximetry 97 97 03/28/18 10:00 03/28/18 10:40 03/28/18 10:51 Temperature Pulse Rate 92 H 105 H Respiratory Rate 16 19 Blood Pressure 136/84 Pulse Oximetry 97 97 03/28/18 11:00 03/28/18 12:00 03/28/18 12:05 Temperature 99.0 F Pulse Rate 85 87 Respiratory Rate 16 20 18 Blood Pressure Pulse Oximetry 97 96 03/28/18 13:00 03/28/18 14:00 Temperature Pulse Rate 107 H 105 H Respiratory Rate 18 17 Blood Pressure Pulse Oximetry 97 97 Intake & Output 03/27/18 03/28/18 03/28/18 18:59 06:59 18:59 Intake Total 660 / 660 1000 / 1000 Output Total 460 / 460 600 / 600 Balance 200 / 200 -600 / -600 1000 / 1000 Weight 57.6 kg Intake: IV 1000 / 1000 D5W/1/2 NS Inj 1,000 ML @ 50 1000 / 1000 mls/hr IV.CONT .Q20H [facility] Rx#: [id number] Oral 660 / 660 Output: Urine 460 / 460 Urine Amount (Catheter) 600 / 600 Indwelling Urethral Catheter 600 / 600 Other: Date of Last Bowel Movement 03/26/18 03/28/18 03/26/18 # Bowel Movements 1 Narrative: GENERAL: Thin male resting in bed, NAD. SKIN: Warm and dry. HEENT: pale,anicteric NECK: Supple, trachea midline. No JVD or lymphadenopathy. CARDIOVASCULAR: Tachycardia,S1S2 normal,no murmurs. RESPIRATORY: CTAB,no rales GASTROINTESTINAL: Abdomen soft, non-tender, nondistended. GUN:price cath in situ, bloody fluid. MUSCULOSKELETAL: No cyanosis,1+ pedal edema. BACK: Nontender without obvious deformity. No CVA tenderness. Urinary Catheter Management Indwelling Urethral Catheter: Cath placed during this visit: yes Reason for continuing: Hourly intake/output Insertion date: 03/09/18 Insertion time: 10:03 3-way Urethral: Cath placed during this visit: yes Reason for continuing: Hourly intake/output Insertion date: 03/21/18 Results Labs CBC & Chem 7: 03/28/18 06:06 03/28/18 06:06 Procedures Procedures: 03/08percutaneous nephrostomy in the left kidney 03/16 upper endoscopy 03/17 right IJ Vas-Cath 03/21 Cystoscopy with clot retention with bilateral retrograde studies, right ureteral dilatation, bilateral double-J stent insertio Assessment and Plan (1) Sepsis due to urinary tract infection: Code(s): A41.9 - Sepsis, unspecified organism; N39.0 - Urinary tract infection, site not specified Status: Acute Onset Date: ~03/07/18 (2) Hydronephrosis of left kidney: Code(s): N13.30 - Unspecified hydronephrosis Status: Chronic Onset Date: Unknown (3) Horseshoe kidney: Code(s): Q63.1 - Lobulated, fused and horseshoe kidney Status: Chronic Onset Date: Unknown (4) Painful bladder spasm: Code(s): R30.1 - Vesical tenesmus Status: Acute Onset Date: ~03/10/18 Plan 37-year-old male presents with complaint of abdominal pain hematuria found to be septic due to pyelonephritis with 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 He was admitted and seen by urology who arranged for percutaneous nephrostomy tube by IR on 03/08. Subsequently, patient continued to have gross hematuria require transfusion 2 units on 03/08 first and then again 2 units on March 11. Patient also developed acute renal failure and symptoms of dysphagia Septic shock with hypotension responsive to fluids with presenting lactic acid of 6.9 due to pyelonephritis completed Zosyn course, Last vancomycin dose was / and stopped due to acute renal failure, blood cultures negative, urine culture negative Severe hydronephrosis with UPJ obstruction with left horseshoe kidney status post percutaneous nephrostomy tube placement by IR on 03/08. -Discussed with urology. Repeat CT abd/pelvis shows significant hemorrhage inside the left kidney. -03/21 status post cystoscope with stenting by urology. Currently off CBI. Acute renal failure likely due to acute tubular necrosis vancomycin and sepsis and previous obstruction with worsening creatinine to 7 patient continues to have urine output. -Hemodialysis today. -Nephrology monitoring. Creatinine is going up from 3.52 --> 4.88. Anemia due to acute blood loss - status post total of 7 units of total transfusionwill monitor hemoglobin remained stable 03/25, 9.6 --> 10.1. Severe protein calorie malnutrition with albumin 2.0, generalized weakness continue mighty shakes supplements, appreciate dietitian recommendations Dysphagianormal barium swallow, Continue Protonix EGD 03/16 showed esophageal stricture status post dilatation biopsy pending now tolerating solid food Hypertension history -controlled, continue hydralazine metoprolol Bilateral pleural effusion with bibasilar atelectasisencourage incentive spirometry usecurrently on Lasix, decrease IVF Fluid removed with dialysis Chest x-ray reviewed showed small pleural effusion with diffuse interstitial prominence Currently stable on room air Asthma history no acute exacerbation nebs as needed Full code. DVT prophylaxisno anticoagulation due to hematuria, SCD. Transfer to the floor which is okay with Urology as well. Progress Note: Quality VTE Deep Vein Thrombosis/Pulmonary Embolism Present on Admission: No
--- NOTE | 2018-03-28 17:13 | P.PNNP ---
Subjective Interval history: Seen in AM. Reports that he did not sleep well last night from back and lower leg pain. <GloryrobbMemeWandy - Last Filed: 03/28/18 17:01> Physical Exam Vital signs: Vital Signs 03/27/18 18:40 03/27/18 18:41 03/27/18 19:00 Temperature Pulse Rate 93 H 78 Respiratory Rate 16 14 Blood Pressure 155/94 H Pulse Oximetry 97 03/27/18 20:00 03/27/18 20:46 03/27/18 21:00 Temperature 98.5 F Pulse Rate 81 90 117 H Respiratory Rate 37 H 20 20 Blood Pressure 146/88 H 146/88 H Pulse Oximetry 98 98 98 03/27/18 22:00 03/27/18 23:00 03/27/18 23:43 Temperature Pulse Rate 108 H 75 98 H Respiratory Rate 23 20 15 Blood Pressure 146/88 H 152/88 H Pulse Oximetry 97 97 97 03/28/18 00:00 03/28/18 01:00 03/28/18 02:00 Temperature Pulse Rate 94 H 102 H 110 H Respiratory Rate 15 14 22 Blood Pressure Pulse Oximetry 97 97 98 03/28/18 02:01 03/28/18 03:00 03/28/18 04:00 Temperature 98.5 F Pulse Rate 108 H 108 H 76 Respiratory Rate 16 16 19 Blood Pressure 167/95 H 156/93 H Pulse Oximetry 97 97 97 03/28/18 05:00 03/28/18 05:19 03/28/18 06:00 Temperature Pulse Rate 79 85 80 Respiratory Rate 18 19 18 Blood Pressure 156/93 H Pulse Oximetry 97 98 97 03/28/18 07:00 03/28/18 07:42 03/28/18 08:00 Temperature 98.7 F Pulse Rate 100 H 86 77 Respiratory Rate 23 20 17 Blood Pressure 159/90 H 159/90 H Pulse Oximetry 97 97 97 03/28/18 08:19 03/28/18 09:00 03/28/18 09:09 Temperature Pulse Rate 90 89 Respiratory Rate 15 17 Blood Pressure 126/81 Pulse Oximetry 99 97 97 03/28/18 09:14 03/28/18 10:00 03/28/18 10:40 Temperature Pulse Rate 87 92 H 105 H Respiratory Rate 16 19 Blood Pressure Pulse Oximetry 97 97 03/28/18 10:51 03/28/18 11:00 03/28/18 12:00 Temperature 99.0 F Pulse Rate 85 87 Respiratory Rate 16 20 Blood Pressure 136/84 Pulse Oximetry 97 96 03/28/18 12:05 03/28/18 13:00 03/28/18 14:00 Temperature Pulse Rate 107 H 105 H Respiratory Rate 18 18 17 Blood Pressure Pulse Oximetry 97 97 03/28/18 14:34 03/28/18 14:45 03/28/18 15:00 Temperature Pulse Rate 103 H 107 H 90 Respiratory Rate 18 17 16 Blood Pressure 133/81 127/77 133/81 Pulse Oximetry 98 98 98 03/28/18 15:15 03/28/18 15:30 03/28/18 15:45 Temperature Pulse Rate 85 88 80 Respiratory Rate 16 17 17 Blood Pressure 136/72 142/73 H 141/77 H Pulse Oximetry 98 98 98 03/28/18 16:00 03/28/18 16:13 Temperature Pulse Rate 85 Respiratory Rate 18 18 Blood Pressure 139/87 Pulse Oximetry 98 Intake & Output 03/27/18 03/28/18 03/28/18 18:59 06:59 18:59 Intake Total 660 / 660 1000 / 1000 Output Total 460 / 460 600 / 600 Balance 200 / 200 -600 / -600 1000 / 1000 Weight 57.6 kg Intake: IV 1000 / 1000 D5W/1/2 NS Inj 1,000 ML @ 50 1000 / 1000 mls/hr IV.CONT .Q20H [facility] Rx#: [id number] Oral 660 / 660 Output: Urine 460 / 460 Urine Amount (Catheter) 600 / 600 Indwelling Urethral Catheter 600 / 600 Other: Date of Last Bowel Movement 03/26/18 03/28/18 03/26/18 # Bowel Movements 1 Narrative: GENERAL: Alert and oriented. Thin SKIN: Warm and dry. NECK: Supple, trachea midline. No JVD CARDIOVASCULAR: Tachycardia. Regular rate and rhythm without murmurs, gallops, or rubs. right IJ vas cath. RESPIRATORY: Breath sounds equal bilaterally. No accessory muscle use. GASTROINTESTINAL: Abdomen soft, non-tender, nondistended. +BS GI: Left nephrostomy tube and indwelling Caldwell catheter/three way with irrigation MUSCULOSKELETAL: No cyanosis, or edema. . - Urinary Catheter Management Indwelling Urethral Catheter Cath placed during this visit: yes Reason for continuing: Hourly intake/output Insertion date: 03/09/18 Insertion time: 10:03 3-way Urethral Cath placed during this visit: yes Reason for continuing: Hourly intake/output Insertion date: 03/21/18 <Wandy Pathak - Last Filed: 03/28/18 17:01> Vital signs: Vital Signs 03/27/18 21:00 03/27/18 22:00 03/27/18 23:00 Temperature Pulse Rate 117 H 108 H 75 Respiratory Rate 20 23 20 Blood Pressure 146/88 H Pulse Oximetry 98 97 97 03/27/18 23:43 03/28/18 00:00 03/28/18 01:00 Temperature Pulse Rate 98 H 94 H 102 H Respiratory Rate 15 15 14 Blood Pressure 152/88 H Pulse Oximetry 97 97 97 03/28/18 02:00 03/28/18 02:01 03/28/18 03:00 Temperature Pulse Rate 110 H 108 H 108 H Respiratory Rate 22 16 16 Blood Pressure 167/95 H Pulse Oximetry 98 97 97 03/28/18 04:00 03/28/18 05:00 03/28/18 05:19 Temperature 98.5 F Pulse Rate 76 79 85 Respiratory Rate 19 18 19 Blood Pressure 156/93 H 156/93 H Pulse Oximetry 97 97 98 03/28/18 06:00 03/28/18 07:00 03/28/18 07:42 Temperature Pulse Rate 80 100 H 86 Respiratory Rate 18 23 20 Blood Pressure 159/90 H Pulse Oximetry 97 97 97 03/28/18 08:00 03/28/18 08:19 03/28/18 09:00 Temperature 98.7 F Pulse Rate 77 90 Respiratory Rate 17 15 Blood Pressure 159/90 H Pulse Oximetry 97 99 97 03/28/18 09:09 03/28/18 09:14 03/28/18 10:00 Temperature Pulse Rate 89 87 92 H Respiratory Rate 17 16 Blood Pressure 126/81 Pulse Oximetry 97 97 03/28/18 10:40 03/28/18 10:51 03/28/18 11:00 Temperature Pulse Rate 105 H 85 Respiratory Rate 19 16 Blood Pressure 136/84 Pulse Oximetry 97 97 03/28/18 12:00 03/28/18 12:05 03/28/18 13:00 Temperature 99.0 F Pulse Rate 87 107 H Respiratory Rate 20 18 18 Blood Pressure Pulse Oximetry 96 97 03/28/18 14:00 03/28/18 14:34 03/28/18 14:45 Temperature Pulse Rate 105 H 103 H 107 H Respiratory Rate 17 18 17 Blood Pressure 133/81 127/77 Pulse Oximetry 97 98 98 03/28/18 15:00 03/28/18 15:15 03/28/18 15:30 Temperature Pulse Rate 90 85 88 Respiratory Rate 16 16 17 Blood Pressure 133/81 136/72 142/73 H Pulse Oximetry 98 98 98 03/28/18 15:45 03/28/18 16:00 03/28/18 16:13 Temperature Pulse Rate 80 85 Respiratory Rate 17 18 18 Blood Pressure 141/77 H 139/87 Pulse Oximetry 98 98 03/28/18 16:15 03/28/18 16:30 03/28/18 16:45 Temperature Pulse Rate 75 72 114 H Respiratory Rate 16 18 17 Blood Pressure 134/85 146/91 H 155/89 H Pulse Oximetry 97 97 98 03/28/18 17:00 03/28/18 17:15 03/28/18 17:30 Temperature 98.7 F Pulse Rate 71 97 H 67 Respiratory Rate 17 27 H 16 Blood Pressure 142/88 H 154/104 H 143/93 H Pulse Oximetry 97 97 98 03/28/18 17:45 03/28/18 18:00 Temperature Pulse Rate 75 105 H Respiratory Rate 16 23 Blood Pressure 154/94 H 157/91 H Pulse Oximetry 97 98 Intake & Output 03/28/18 03/28/18 03/29/18 06:59 18:59 06:59 Intake Total 1820 / 1820 Output Total 600 / 600 2900 / 2900 Balance -600 / -600 -1080 / -1080 Weight 57.6 kg Intake: IV 1000 / 1000 D5W/1/2 NS Inj 1,000 ML @ 50 1000 / 1000 mls/hr IV.CONT .Q20H [facility] Rx#: [id number] Oral 820 / 820 Output: Hemodialysis Amount 1999 / 1999 Urine Amount (Catheter) 600 / 600 900 / 900 Indwelling Urethral Catheter 600 / 600 900 / 900 Other: Date of Last Bowel Movement 03/28/18 03/28/18 # Bowel Movements 1 - Urinary Catheter Management Indwelling Urethral Catheter Cath placed during this visit: no 3-way Urethral Cath placed during this visit: no <Jorge Luis Scott - Last Filed: 03/28/18 21:00> Assessment and Plan - Assessment (1) Acute kidney injury Code(s): N17.9 - Acute kidney failure, unspecified Status: Acute Plan: Patient with Acute kidney injury, Post Left Nephrostomy and stent placement. Started HD on 03/17, vas cath 03/17 S/p cysto with stent placement Continue to monitor progress follow BMP Avoid nephrotoxins including IV contrast and NSAIDS Epogen with dialysis Hemodialysis planned for today will remove fluid as tolerated. Watch for renal recovery (2) Hypertension Code(s): I10 - Essential (primary) hypertension Status: Acute Plan: continue to monitor. Better controlled. (3) Hydronephrosis of left kidney Code(s): N13.30 - Unspecified hydronephrosis Status: Chronic Onset Date: Unknown Plan: Cysto with stent placement. (4) Anemia Code(s): D64.9 - Anemia, unspecified Status: Acute Plan: HGB at stable Transfuse for HGB less than 7.0 Epogen with dialysis Labs in AM <Wandy Pathak - Last Filed: 03/28/18 17:01> - Assessment (1) Acute kidney injury Code(s): N17.9 - Acute kidney failure, unspecified Status: Acute Plan: Patient seen and examined, agree with above. HD today, Watch for renal recovery. Continue CBI. (2) Hypertension Code(s): I10 - Essential (primary) hypertension Status: Acute (3) Hydronephrosis of left kidney Code(s): N13.30 - Unspecified hydronephrosis Status: Chronic Onset Date: Unknown (4) Anemia Code(s): D64.9 - Anemia, unspecified Status: Acute <Jorge Luis Scott - Last Filed: 03/28/18 21:00>
[2018-03-29] MEDS: Dextrose 5%/NaCl 0.45% Inj 1,000 ML IV.CONT SCH (03:01)
[2018-03-29] MEDS: Senna/Docusate Sodium 8.6/50 MG Tablet PO SCH ×2 (08:21→20:41)
[2018-03-29] MEDS: hydrALAZINE 50 MG Tablet PO SCH ×3 (08:21→17:16)
[2018-03-29] MEDS: Metoprolol Tartrate 25 MG Tablet PO SCH ×2 (08:22→20:42)
--- NOTE | 2018-03-29 11:17 | P.PNIM ---
Subjective Interval history: Patient sitting in a chair with his mother at bedside. Complains of occasional left sided flank pain. No other complaints from the patient at the moment. Physical Exam Vital signs: Vital Signs 03/28/18 12:00 03/28/18 12:05 03/28/18 13:00 Temperature 99.0 F Pulse Rate 87 107 H Respiratory Rate 20 18 18 Blood Pressure Pulse Oximetry 96 97 03/28/18 14:00 03/28/18 14:34 03/28/18 14:45 Temperature Pulse Rate 105 H 103 H 107 H Respiratory Rate 17 18 17 Blood Pressure 133/81 127/77 Pulse Oximetry 97 98 98 03/28/18 15:00 03/28/18 15:15 03/28/18 15:30 Temperature Pulse Rate 90 85 88 Respiratory Rate 16 16 17 Blood Pressure 133/81 136/72 142/73 H Pulse Oximetry 98 98 98 03/28/18 15:45 03/28/18 16:00 03/28/18 16:13 Temperature Pulse Rate 80 85 Respiratory Rate 17 18 18 Blood Pressure 141/77 H 139/87 Pulse Oximetry 98 98 03/28/18 16:15 03/28/18 16:30 03/28/18 16:45 Temperature Pulse Rate 75 72 114 H Respiratory Rate 16 18 17 Blood Pressure 134/85 146/91 H 155/89 H Pulse Oximetry 97 97 98 03/28/18 17:00 03/28/18 17:15 03/28/18 17:30 Temperature 98.7 F Pulse Rate 71 97 H 67 Respiratory Rate 17 27 H 16 Blood Pressure 142/88 H 154/104 H 143/93 H Pulse Oximetry 97 97 98 03/28/18 17:45 03/28/18 18:00 03/28/18 20:00 Temperature 99.1 F Pulse Rate 75 105 H 109 H Respiratory Rate 16 23 17 Blood Pressure 154/94 H 157/91 H 134/85 Pulse Oximetry 97 98 96 03/29/18 00:00 03/29/18 01:46 03/29/18 08:00 Temperature 98.5 F 98.4 F Pulse Rate 107 H 91 H Respiratory Rate 17 15 Blood Pressure 119/72 137/82 Pulse Oximetry 95 98 96 Intake & Output 03/28/18 03/29/18 03/29/18 18:59 06:59 18:59 Intake Total 1820 / 1820 1380 / 1380 Output Total 2900 / 2900 475 / 475 Balance -1080 / -1080 905 / 905 Intake: IV 1000 / 1000 1000 / 1000 D5W/1/2 NS Inj 1,000 ML @ 50 1000 / 1000 1000 / 1000 mls/hr IV.CONT .Q20H [facility] Rx#: [id number] Oral 820 / 820 380 / 380 Output: Urine 250 / 250 Hemodialysis Amount 1999 / 1999 Urine Amount (Catheter) 900 / 900 225 / 225 Indwelling Urethral Catheter 900 / 900 225 / 225 Other: Date of Last Bowel Movement 03/28/18 # Bowel Movements 0 Narrative: Patient sitting down in chair alert and oriented S1S2 CTA b/l Left sided nephrostomy tube with bloody urine in bag no edema of the exts no focal neuro deficits Urinary Catheter Management Indwelling Urethral Catheter: Cath placed during this visit: yes Reason for continuing: Hourly intake/output Insertion date: 03/09/18 Insertion time: 10:03 3-way Urethral: Cath placed during this visit: yes Reason for continuing: Hourly intake/output Insertion date: 03/21/18 Results Labs CBC & Chem 7: 03/28/18 06:06 03/29/18 06:24 Procedures Procedures: 03/08percutaneous nephrostomy in the left kidney 03/16 upper endoscopy 03/17 right IJ Vas-Cath 03/21 Cystoscopy with clot retention with bilateral retrograde studies, right ureteral dilatation, bilateral double-J stent insertio Assessment and Plan (1) Sepsis due to urinary tract infection: Code(s): A41.9 - Sepsis, unspecified organism; N39.0 - Urinary tract infection, site not specified Status: Acute Onset Date: ~03/07/18 (2) Hydronephrosis of left kidney: Code(s): N13.30 - Unspecified hydronephrosis Status: Chronic Onset Date: Unknown (3) Horseshoe kidney: Code(s): Q63.1 - Lobulated, fused and horseshoe kidney Status: Chronic Onset Date: Unknown (4) Painful bladder spasm: Code(s): R30.1 - Vesical tenesmus Status: Acute Onset Date: ~03/10/18 Plan This patient is a 37 y/o male with abd pain and hematuria who was found to be septic due to pyelonephritis with left horseshoe kidney and severe hydronephrosis and upj stenosis. He was admitted and evaluated by urology who set the patient up for percutaneous nephrostomy tube by IR on 03/08. Patient continued to have gross hematuria and required 2 units prbc on 03/08 and again on 03/11. Patient also had worsening renal failure and is being followed by nephrology. 1. Septic shock with hypotension and Lactic acidosis 03/11 pyelonephritis. Shock resolved, lactate was elevated at 6.9 initially. S/p tx with zosyn. Blood cxs negative, urine cx negative. 2. Severe hydronephrosis with upj obstruction with left horseshoe kidney s/p percutaneous nephrostomy tube placement 03/[address] scan abd/pelvis shows significant hemorrhage inside the left kidney. 03/21 status post cystoscope with stenting by urology. Urology following the patient, recommending conservative management for now. I will continue to follow their recs. F/u am labs. 3. PARISH likely due to ATN, vancomycin, sepsis, and previous obstruction Patient is having urine output HD was done yesterday. Continue to follow with Nephrology recs. Cr 4.88, slightly uptrending. Avoid nephrotoxic agents. F/u am labs 5. Dysphagia normal barium swallow, Continue Protonix EGD 03/16 showed esophageal stricture status post dilatation biopsy pending now tolerating solid food 6. Hypertension history controlled, continue hydralazine metoprolol Scds for dvt prophylaxis, no pharmacotherapy given current hemorrhage. Progress Note: Quality VTE Deep Vein Thrombosis/Pulmonary Embolism Present on Admission: No
--- NOTE | 2018-03-29 13:37 | P.PNURO ---
Subjective Patient symptoms today: Pt seen and examined. Urine dark blood; no clots. Received HD yesterday. Objective Vital Signs: Vital Signs 03/28/18 14:00 03/28/18 14:34 03/28/18 14:45 Temperature Pulse Rate 105 H 103 H 107 H Respiratory Rate 17 18 17 Blood Pressure 133/81 127/77 Pulse Oximetry 97 98 98 03/28/18 15:00 03/28/18 15:15 03/28/18 15:30 Temperature Pulse Rate 90 85 88 Respiratory Rate 16 16 17 Blood Pressure 133/81 136/72 142/73 H Pulse Oximetry 98 98 98 03/28/18 15:45 03/28/18 16:00 03/28/18 16:13 Temperature Pulse Rate 80 85 Respiratory Rate 17 18 18 Blood Pressure 141/77 H 139/87 Pulse Oximetry 98 98 03/28/18 16:15 03/28/18 16:30 03/28/18 16:45 Temperature Pulse Rate 75 72 114 H Respiratory Rate 16 18 17 Blood Pressure 134/85 146/91 H 155/89 H Pulse Oximetry 97 97 98 03/28/18 17:00 03/28/18 17:15 03/28/18 17:30 Temperature 98.7 F Pulse Rate 71 97 H 67 Respiratory Rate 17 27 H 16 Blood Pressure 142/88 H 154/104 H 143/93 H Pulse Oximetry 97 97 98 03/28/18 17:45 03/28/18 18:00 03/28/18 20:00 Temperature 99.1 F Pulse Rate 75 105 H 109 H Respiratory Rate 16 23 17 Blood Pressure 154/94 H 157/91 H 134/85 Pulse Oximetry 97 98 96 03/29/18 00:00 03/29/18 01:46 03/29/18 08:00 Temperature 98.5 F 98.4 F Pulse Rate 107 H 91 H Respiratory Rate 17 15 Blood Pressure 119/72 137/82 Pulse Oximetry 95 98 96 03/29/18 12:00 Temperature 98.4 F Pulse Rate 92 H Respiratory Rate 18 Blood Pressure 139/87 Pulse Oximetry 96 Intake & Output 03/28/18 03/29/18 03/29/18 18:59 06:59 18:59 Intake Total 1820 / 1820 1380 / 1380 Output Total 2900 / 2900 475 / 475 Balance -1080 / -1080 905 / 905 Intake: IV 1000 / 1000 1000 / 1000 D5W/1/2 NS Inj 1,000 ML @ 50 1000 / 1000 1000 / 1000 mls/hr IV.CONT .Q20H [facility] Rx#: [id number] Oral 820 / 820 380 / 380 Output: Urine 250 / 250 Hemodialysis Amount 1999 Urine Amount (Catheter) 900 / 900 225 / 225 Indwelling Urethral Catheter 900 / 900 225 / 225 Other: Date of Last Bowel Movement 03/28/18 # Bowel Movements 0 Result Diagrams: 03/28/18 06:06 03/29/18 06:24 Medications and IVs: Active Medications Generic Name Dose Route Start Last Admin Trade Name Freq PRN Reason Stop Dose Admin Acetaminophen 650 mg 03/20/18 07:59 Tylenol PO Q4H PRN SEE LABEL COMMENTS Acetaminophen 650 mg 03/07/18 23:05 03/24/18 19:01 Tylenol PO 650 mg Q4H PRN Administration Temp > 100.4 Acetaminophen 650 mg 03/17/18 11:03 Tylenol PO UNSCH PRN SEE LABEL COMMENTS Belladonna Alkaloids/Opium 60 mg 03/10/18 15:43 03/28/18 02:16 B & O Supp RECTAL 60 mg Q6HR PRN Administration BLADDER SPASM Diphenhydramine HCl 25 mg 03/20/18 07:59 Benadryl PO Q4H PRN SEE LABEL COMMENTS Diphenhydramine HCl 25 mg 03/17/18 11:03 03/22/18 12:53 Benadryl PO 25 mg UNSCH PRN Administration SEE LABEL COMMENTS Epoetin Brnadt 6,000 unit 03/17/18 11:03 03/28/18 15:04 Epogen Inj IV.PUSH 6,000 unit UNSCH PRN Administration SEE LABEL COMMENTS Furosemide 40 mg 03/15/18 09:00 03/18/18 09:53 Lasix Inj IV.PUSH Not Given BID@0900,1800 [facility] Gelatin 1 foam 03/17/18 11:03 Gelfoam 12 Mm/7 Mm Topical TOPICAL PRN PRN help stop bleeding from site Gentamicin Sulfate 20 mg 03/17/18 11:03 03/28/18 15:04 Gentamicin Inj OTHER 20 mg WITH DIALYSIS PRN Administration Dwell Gentamycin Lock Hydralazine HCl 50 mg 03/24/18 14:16 02/20/19 12:22 Apresoline PO 50 mg TID [facility] Administration Hydralazine HCl 10 mg 03/17/18 18:44 03/17/18 19:59 Apresoline Inj IV.PUSH 10 mg Q30M PRN Administration SBP>180, DBP>110 Hydromorphone HCl 0.5 mg 03/18/18 10:15 03/28/18 23:51 Dilaudid Pf Inj IV.PUSH 0.5 mg Q4H PRN Administration BREAKTHROUGH PAIN Dextrose/Sodium Chloride 1,000 mls @ 50 mls/hr 03/15/18 17:06 03/29/18 03:01 D5w/1/2 Ns Inj IV.CONT 50 mls/hr .Q20H [facility] Administration Albumin Human 100 mls @ 60 mls/hr 03/17/18 11:03 Flexbumin 25% Inj IV.SIG WITH DIALYSIS PRN hypotension / volume replace Sodium Chloride 1,000 mls @ 0 mls/hr 03/17/18 11:03 Ns Inj OTHER .Q0M PRN for prime and rinse back As Directed Sodium Chloride 1,000 mls @ 200 mls/hr 03/17/18 11:03 Ns Inj OTHER .Q5H PRN for dialyzer flush PRN Sodium Chloride 1,000 mls @ 0 mls/hr 03/17/18 11:03 Ns Inj IV.CONT .Q0M PRN hypotension / volume replace As Directed Mannitol 12.5 gm 03/17/18 11:03 Mannitol Inj IV.PUSH UNSCH PRN hypotension / volume replace Megestrol Acetate 40 mg 03/28/18 13:45 03/29/18 08:21 Megace PO 40 mg DAILY [facility] Administration Metoclopramide HCl 5 mg 03/26/18 22:00 03/29/18 05:15 Reglan Inj IV.PUSH 5 mg Q8HR [facility] Administration Protocol Metoprolol Tartrate 12.5 mg 03/11/18 09:00 03/29/18 08:22 Lopressor PO 12.5 mg BID [facility] Administration Miscellaneous 1 each 03/11/18 10:00 03/22/18 08:00 Pill Splitter OTHER 1 each UNSCH [facility] Administration Naloxone HCl 0.4 mg 03/17/18 16:50 Narcan Inj IV.PUSH UNSCH PRN SEE LABEL COMMENTS Nitroglycerin 0.4 mg 03/17/18 11:03 Nitrostat Sl SL Q5M PRN CHEST PAIN Ondansetron HCl 4 mg 03/07/18 23:05 03/29/18 11:01 Zofran Inj IV.PUSH 4 mg Q6H PRN Administration NAUSEA OR VOMITING Oxybutynin Chloride 5 mg 03/17/18 21:00 03/29/18 08:21 Ditropan PO 5 mg BID [facility] Administration Oxycodone HCl 5 mg 03/18/18 10:16 03/29/18 12:22 Roxicodone PO 5 mg Q4H PRN Administration Acute Pain 1-10 Pantoprazole Sodium 40 mg 03/13/18 15:45 03/29/18 08:21 Protonix PO 40 mg DAILY [facility] Administration Polyethylene Glycol 17 gm 03/09/18 14:24 03/09/18 21:14 Miralax PO 17 gm DAILY PRN Administration Moderate-severe constipation Prochlorperazine Edisylate 5 mg 03/26/18 17:27 03/28/18 13:19 Compazine Inj IV.PUSH 5 mg Q8H PRN Administration SEVERE NAUSEA Senna/Docusate Sodium 1 tab 03/09/18 21:00 03/29/18 08:21 Allyssa-Colace PO 1 tab BID [facility] Administration Sodium Chloride 2 ml 03/08/18 09:00 03/29/18 08:22 Ns Flush IV.FLUSH Not Given BID [facility] Sodium Chloride 2 ml 03/07/18 23:05 03/20/18 21:44 Ns Flush IV.FLUSH 2 ml PRN PRN Administration FLUSH AFTER USING IV ACCESS Sodium Chloride 5 ml 03/17/18 11:03 Ns Flush IV.FLUSH PRN PRN flush each lumen during HD Objective Remarks: CV: sinus tach Abd:soft, mild distension; no rebound Price: old dark blood Ext: neg C/C/E 03/10 CV: sinus tach Abd:soft,less tenderness and distension Price: blood tinged PCNT: bloody 03/10 16:00: SP pains. Bladder not palpable. No SP tenderness. Abd: now non tender LLQ. Bloody urine via nephrostomy, no clots. Bloody urine via price catheter, no clots. 03/11: Scant urine output via Nephrostomy tube. It may not be draining, will wait and see. Fairly good urine output via price catheter. Urine dark blood tinged, no clots. BP varies high to normal, Pulse varies, temp 99. 03/12: See "Subjective" for the Objective. Suspect Vancomycin toxicity causing deterioration in kidney function and decreased urine output. N tube draining dark burgundy urine. PLAN: Dr. Little following the labs. N tube irrigation by IR if needed. 03/13 Abd:soft,nt,nd Left PNCT with blood Price: hematuria 03/14 Abd:soft,nt,nd Left PCNT: bloody Price: blood tinged 03/15 Abd:soft,nt,nd Left PCNT: bloody Price: blood tinged 03/16 Abd:soft,nt,nd Left PCNT: bloody Price: blood tinged 03/17 Abd:soft,nt,nd Left PCNT: bloody Price: blood tinged 03/20 Abd:soft,nt,nd Left PCNT: bloody Price: blood tinged 03/22 Abd:soft,nt,nd Left PCNT: blood tinged Price: clear on slow CBI 03/23 Abd:soft,nt,nd Price: urine clearing on CBI Left PCNT: urine dark; bag leaking 03/24 Abd:soft,nt,nd Price: urine clearing on CBI Left PCNT: urine dark; bag leaking 03/27 Abd:soft,nt,nd Price: urine clearing on CBI Left PCNT: out; dressing applied 03/28 Abd:soft,nt,nd Price: Dark bloody urine; no clots noted 03/29 Abd:soft,nt,nd Price: Dark bloody urine; no clots noted Assessment and Plan - Assessment (1) Sepsis due to urinary tract infection Code(s): A41.9 - Sepsis, unspecified organism; N39.0 - Urinary tract infection, site not specified Status: Acute Onset Date: ~03/07/18 (2) Hydronephrosis of left kidney Code(s): N13.30 - Unspecified hydronephrosis Status: Chronic (3) 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 Back up plan is to try to place a urinary stent cystoscopically in the OR. However, there is a great possibility that the presumed UPJ stenosis will prevent passage of guide wires and stent. 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 Discussed with Dr. Little. 03/11: N tube may or may not be draining. Sepsis improving. Still having bladder spasms, receiving Morphine. PLAN: Continue same. 03/12 See "Subjective", "Objective". 03/13 37 y.o male with sepsis and h/o horseshoe kidney s/p PCNT placement with hematuria Continue supportive measures for now Transfuse PRBC's today if repeat Hgb is below 8 Monitor u/o; avoid nephrotoxins Will follow. 03/14 37 y.o male with sepsis and horseshoe kidney s/p PCNT with hematuria and ARF Hgb stablized at 8.3 this AM. Creatinine rising to 5.7; u/o dropping Await Nephrology input Monitor u/o Continue conservative measures for now. 03/15 37 y.o male with sepsis and horseshoe kidney s/p PCNT with hematuria and worsening ARF. Creatinine up to 7.2 up from 5.7. Hgb down to 7.8. Will transfuse 1 unit PRBC's. Await Nephrology input Monitor u/o. 03/16 37 y.o male with sepsis and horseshoe kidney s/p PCNT with hematuria and worsening ARF probably due to ATN Continue conservative management from standpoint. No evidence of active bleeding. Will follow. 03/17 37 y.o male with sepsis s/p PCNT with hematuria and ARF Maintain price catheter- urine is clearing and less bloody Continue conservative measures. 03/20 37 y.o male with sepsis s/p PCNT with hematuria and ARF Transfuse [address] scan today Hold Heparin with dialysis. 03/22 37 y.o male s/p cysto with b/l JJ stent insertion with clot evacuation Maintain slow CBI Follow creatinine. Large amount of clot in left collecting system s/p PCNT Continue dialysis for now. Hold heparin with dialysis. Once urine clears will remove PCNT. 03/23 37 y.o male s/p cysto with b/l JJ stent insertion with clot evacuation Maintain slow CBI Continue conservative measures for now Follow labs. B&O suppository for bladder spasm. 03/24 37 y.o male with ARF s/p left PCNT s/p cysto with b/l JJ stent insertion s/p HD yesterday with 1.5 L removed Continue price and PNCT drainage 03/27 37 y.o male with ARF s/p left PCNT s/p cysto with b/l JJ stent insertion. Left PCNT fell out Will leave left PCNT out for now as he has JJ stents in place Ween CBI to off. Will obtain CT scan to evaluate resolution of left renal hematoma. 03/28 37 y.o male with ARF s/p left PCNT s/p cysto with b/l JJ stent insertion. Left PCNT fell out CT scan revealed persistent left renal hematoma s/p PCNT; JJ stents in place Follow Creatinine; HD per renal Continue conservative measures. 03/29 37 y.o male with ARF s/p left PCNT s/p cysto with b/l JJ stent insertion. Left PCNT fell out Follow Creatinine; HD per renal Continue conservative measures.
--- NOTE | 2018-03-29 14:37 | P.DIET ---
Nutritional Evaluation Type of nutrition evaluation: follow-up (Patient transferred from [facility] [place]) Nutrition consult regarding: Diet Evaluation Nutrition screening: [facility] [place]: 03/12 [facility] [place] Malnutrition/diet evaluation 03/14 [facility] [place] malnutrition Subjective Barriers to Nutrition: Swallowing problem Oral Diet Tolerance Assessment Indicates: Poor intake due to pain Subjective Comments: Very poor po intake noted. Only eating 0-25%. Objective - Diagnosis Abdominal pain, hydronephrosis - Objective % IBW: 81 (IBW:166lbs) Body Weight Used for Calculations: Actual (59.3kg) Energy Needs - Lower Range (kCal/kg): 30 Energy Needs - Upper Range (kCal/kg): 35 Lower Limit kCal/kg (kCals): 1,779 Upper Limit kCal/kg (kCals): 2,076 Lower Limit Protein Factor (Grams per Kg): 1.2 Upper Limit Protein Factor (Grams per Kg): 1.5 Lower Protein Needs (Protein): 71 Upper Protein Needs (Protein): 90 Dietitian Reviewed in Medical Record: Current diet, Curent medications, Intake & Output, Labs, Medical history Diet Order: Renal, 2 gm Na Oral Diet Intake Amount: Poor <50% Objective Comments: PMH: asthma, seizures 03/16 panendoscopy 03/21 cystoscopy, R ureteral dilation, B stents, clot evacuation Assessment Assessment: Pt remains at high nutrition risk 2' to poor po intake and low wt for ht with a BMI of 18.2. He started hemodialysis on 03/18. Will continue to send Nepro qd for added nutrition; each 8 oz serving provides 425 kcals and [address] will monitor acceptance. Labs, wts and clinical course reviewed: no wt loss noted when compared to admission wt. CBW = 57.6 kg Recommendations: Nepro qd Monitor acceptance Dietitian to Monitor: Lab values, Supplement acceptance, Intake & Output, Diet tolerance, Weight change, PO Intake, Medical course
--- NOTE | 2018-03-29 15:27 | P.PNNP ---
Subjective Interval history: Seen in AM, up out of bed in chair. No shortness of breath, nausea, or vomiting. <Wandy Pathak - Last Filed: 03/29/18 15:36> Physical Exam Vital signs: Vital Signs 03/28/18 15:30 03/28/18 15:45 03/28/18 16:00 Temperature Pulse Rate 88 80 85 Respiratory Rate 17 17 18 Blood Pressure 142/73 H 141/77 H 139/87 Pulse Oximetry 98 98 98 03/28/18 16:13 03/28/18 16:15 03/28/18 16:30 Temperature Pulse Rate 75 72 Respiratory Rate 18 16 18 Blood Pressure 134/85 146/91 H Pulse Oximetry 97 97 03/28/18 16:45 03/28/18 17:00 03/28/18 17:15 Temperature 98.7 F Pulse Rate 114 H 71 97 H Respiratory Rate 17 17 27 H Blood Pressure 155/89 H 142/88 H 154/104 H Pulse Oximetry 98 97 97 03/28/18 17:30 03/28/18 17:45 03/28/18 18:00 Temperature Pulse Rate 67 75 105 H Respiratory Rate 16 16 23 Blood Pressure 143/93 H 154/94 H 157/91 H Pulse Oximetry 98 97 98 03/28/18 20:00 03/29/18 00:00 03/29/18 01:46 Temperature 99.1 F 98.5 F Pulse Rate 109 H 107 H Respiratory Rate 17 17 Blood Pressure 134/85 119/72 Pulse Oximetry 96 95 98 03/29/18 08:00 03/29/18 12:00 Temperature 98.4 F 98.4 F Pulse Rate 91 H 92 H Respiratory Rate 15 18 Blood Pressure 137/82 139/87 Pulse Oximetry 96 96 Intake & Output 03/28/18 03/29/18 03/29/18 18:59 06:59 18:59 Intake Total 1820 / 1820 1380 / 1380 Output Total 2900 / 2900 475 / 475 Balance -1080 / -1080 905 / 905 Intake: IV 1000 / 1000 1000 / 1000 D5W/1/2 NS Inj 1,000 ML @ 50 1000 / 1000 1000 / 1000 mls/hr IV.CONT .Q20H [facility] Rx#: [id number] Oral 820 / 820 380 / 380 Output: Urine 250 / 250 Hemodialysis Amount 1999 Urine Amount (Catheter) 900 / 900 225 / 225 Indwelling Urethral Catheter 900 / 900 225 / 225 Other: Date of Last Bowel Movement 03/28/18 # Bowel Movements 0 Narrative: GENERAL: Alert and oriented. Thin SKIN: Warm and dry. NECK: Supple, trachea midline. No JVD CARDIOVASCULAR: Tachycardia. Regular rate and rhythm without murmurs, gallops, or rubs. right IJ vas cath. RESPIRATORY: Breath sounds equal bilaterally. No accessory muscle use. GASTROINTESTINAL: Abdomen soft, non-tender, nondistended. +BS GI: Indwelling price catheter with red colored urine. MUSCULOSKELETAL: No cyanosis, or edema. . - Urinary Catheter Management Indwelling Urethral Catheter Cath placed during this visit: yes Reason for continuing: Hourly intake/output Insertion date: 03/09/18 Insertion time: 10:03 3-way Urethral Cath placed during this visit: yes Reason for continuing: Hourly intake/output Insertion date: 03/21/18 <Wandy Pathak - Last Filed: 03/29/18 15:36> Vital signs: Vital Signs 03/29/18 00:00 03/29/18 01:46 03/29/18 08:00 Temperature 98.5 F 98.4 F Pulse Rate 107 H 91 H Respiratory Rate 17 15 Blood Pressure 119/72 137/82 Pulse Oximetry 95 98 96 03/29/18 12:00 03/29/18 16:00 03/29/18 20:43 Temperature 98.4 F 98.1 F Pulse Rate 92 H 88 Respiratory Rate 18 18 18 Blood Pressure 139/87 134/82 Pulse Oximetry 96 97 Intake & Output 03/29/18 03/29/18 03/30/18 06:59 18:59 06:59 Intake Total 1380 / 1380 Output Total 475 / 475 Balance 905 / 905 Intake: IV 1000 / 1000 D5W/1/2 NS Inj 1,000 ML @ 50 1000 / 1000 mls/hr IV.CONT .Q20H [facility] Rx#: [id number] Oral 380 / 380 Output: Urine 250 / 250 Urine Amount (Catheter) 225 / 225 Indwelling Urethral Catheter 225 / 225 Other: # Bowel Movements 0 - Urinary Catheter Management Indwelling Urethral Catheter Cath placed during this visit: no 3-way Urethral Cath placed during this visit: no <Jorge Luis Scott - Last Filed: 03/29/18 21:42> Assessment and Plan - Assessment (1) Acute kidney injury Code(s): N17.9 - Acute kidney failure, unspecified Status: Acute Plan: Patient with Acute kidney injury, Post Left Nephrostomy and stent placement. Started HD on 03/17, vas cath 03/17 S/p cysto with stent placement Continue to monitor progress follow BMP Avoid nephrotoxins including IV contrast and NSAIDS Epogen with dialysis Hemodialysis yesterday with removal of 2 liters of fluid Watch for renal recovery Labs in AM, plan for hemodialysis tomorrow. (2) Hypertension Code(s): I10 - Essential (primary) hypertension Status: Acute Plan: continue to monitor. Better controlled. (3) Hydronephrosis of left kidney Code(s): N13.30 - Unspecified hydronephrosis Status: Chronic Onset Date: Unknown Plan: Cysto with stent placement. (4) Anemia Code(s): D64.9 - Anemia, unspecified Status: Acute Plan: HGB at stable Transfuse for HGB less than 7.0 Epogen with dialysis Labs in AM <Wandy Pathak - Last Filed: 03/29/18 15:36> - Assessment (1) Acute kidney injury Code(s): N17.9 - Acute kidney failure, unspecified Status: Acute Plan: Patient seen and examined, agree with above. Creatinine still elevated. Has hematuria, off CBI. Follow the BMP , HD as needed. (2) Hypertension Code(s): I10 - Essential (primary) hypertension Status: Acute (3) Hydronephrosis of left kidney Code(s): N13.30 - Unspecified hydronephrosis Status: Chronic Onset Date: Unknown (4) Anemia Code(s): D64.9 - Anemia, unspecified Status: Acute <Jorge Luis Scott - Last Filed: 03/29/18 21:42>
[2018-03-30 07:24] LABS: Hematocrit 31.5 % (39.0-51.0); Hemoglobin 10.4 gm/dL (13.0-17.0)
[2018-03-30 07:47] LABS: Calcium 8.6 mg/dL (8.5-10.1); Carbon Dioxide 27.7 meq/L (21.0-32.0); Magnesium 1.7 mg/dL (1.5-2.5); Phosphorus 3.5 mg/dL (2.5-4.9); Potassium 3.7 meq/L (3.5-5.1)
[2018-03-30] MEDS: HYDROmorphone PF Inj 0.5 MG/0.5 ML Syringe IV.PUSH PRN ×2 (09:42→22:29)
--- NOTE | 2018-03-30 11:08 | P.PNNP ---
Subjective Interval history: Creatinine continues to be elevated at 4.2, non oliguric. No shortness of breath, nausea, or vomiting. Poor appetite. Plan for HD today. <Wandy Pathak - Last Filed: 03/30/18 11:05> Physical Exam Vital signs: Vital Signs 03/29/18 12:00 03/29/18 16:00 03/29/18 20:00 Temperature 98.4 F 98.1 F 98.5 F Pulse Rate 92 H 88 108 H Respiratory Rate 18 18 17 Blood Pressure 139/87 134/82 127/78 Pulse Oximetry 96 97 96 03/29/18 20:43 03/30/18 00:00 03/30/18 08:00 Temperature 98.8 F 98.6 F Pulse Rate 92 H 91 H Respiratory Rate 18 17 18 Blood Pressure 124/58 L 148/88 H Pulse Oximetry 96 96 03/30/18 09:45 Temperature Pulse Rate Respiratory Rate Blood Pressure Pulse Oximetry 96 Intake & Output 03/29/18 03/30/18 03/30/18 18:59 06:59 18:59 Intake Total 480 / 480 Output Total 1350 / 1350 Balance -870 / -870 Weight 52.8 kg Intake: Oral 480 / 480 Output: Urine 1350 / 1350 Other: Date of Last Bowel Movement 03/28/18 03/30/18 # Bowel Movements 0 2 Narrative: GENERAL: Alert and oriented. Thin SKIN: Warm and dry. NECK: Supple, trachea midline. No JVD CARDIOVASCULAR: Tachycardia. Regular rate and rhythm without murmurs, gallops, or rubs. right IJ vas cath. RESPIRATORY: Breath sounds equal bilaterally. No accessory muscle use. GASTROINTESTINAL: Abdomen soft, non-tender, nondistended. +BS GI: Indwelling price catheter with red colored urine. MUSCULOSKELETAL: No cyanosis, or edema. . - Urinary Catheter Management Indwelling Urethral Catheter Cath placed during this visit: yes Reason for continuing: Hourly intake/output Insertion date: 03/09/18 Insertion time: 10:03 3-way Urethral Cath placed during this visit: yes Reason for continuing: Hourly intake/output Insertion date: 03/21/18 <Wandy Pathak - Last Filed: 03/30/18 11:05> Vital signs: Vital Signs 03/30/18 00:00 03/30/18 08:00 03/30/18 09:45 Temperature 98.8 F 98.6 F Pulse Rate 92 H 91 H Respiratory Rate 17 18 Blood Pressure 124/58 L 148/88 H Pulse Oximetry 96 96 96 03/30/18 10:12 03/30/18 12:00 03/30/18 15:41 Temperature 98.1 F Pulse Rate 92 H Respiratory Rate 18 18 18 Blood Pressure 142/94 H Pulse Oximetry 97 03/30/18 16:00 Temperature 98.8 F Pulse Rate 98 H Respiratory Rate 19 Blood Pressure 127/84 Pulse Oximetry 97 Intake & Output 03/30/18 03/30/18 03/31/18 06:59 18:59 06:59 Intake Total 480 / 480 1200 / 1200 Output Total 1350 / 1350 500 / 500 Balance -870 / -870 700 / 700 Weight 52.8 kg Intake: Oral 480 / 480 1200 / 1200 Output: Urine 1350 / 1350 500 / 500 Other: Date of Last Bowel Movement 03/28/18 03/30/18 # Bowel Movements 0 2 - Urinary Catheter Management Indwelling Urethral Catheter Cath placed during this visit: no 3-way Urethral Cath placed during this visit: no <Jorge Luis Scott - Last Filed: 03/30/18 20:45> Assessment and Plan - Assessment (1) Acute kidney injury Code(s): N17.9 - Acute kidney failure, unspecified Status: Acute Plan: Patient with Acute kidney injury, Post Left Nephrostomy and stent placement. Started HD on 03/17, vas cath 03/17 S/p cysto with stent placement Continue to monitor progress follow BMP Avoid nephrotoxins including IV contrast and NSAIDS Epogen with dialysis Creatinine remains elevated at 4.2, hemodialysis today will remove fluid as tolerated. (2) Hypertension Code(s): I10 - Essential (primary) hypertension Status: Acute Plan: continue to monitor. Better controlled. (3) Hydronephrosis of left kidney Code(s): N13.30 - Unspecified hydronephrosis Status: Chronic Onset Date: Unknown Plan: Cysto with stent placement. (4) Anemia Code(s): D64.9 - Anemia, unspecified Status: Acute Plan: HGB at stable Transfuse for HGB less than 7.0 Epogen with dialysis Labs in AM <Wandy Pathak - Last Filed: 03/30/18 11:05> - Assessment (1) Acute kidney injury Code(s): N17.9 - Acute kidney failure, unspecified Status: Acute Plan: Patient seen and examined, agree with above. Creatinine is 4.2, will hold HD today. Watch for renal recovery. Possible HD if worse. (2) Hypertension Code(s): I10 - Essential (primary) hypertension Status: Acute (3) Hydronephrosis of left kidney Code(s): N13.30 - Unspecified hydronephrosis Status: Chronic Onset Date: Unknown (4) Anemia Code(s): D64.9 - Anemia, unspecified Status: Acute <Jorge Luis Scott - Last Filed: 03/30/18 20:45>
[2018-03-30] MEDS: Senna/Docusate Sodium 8.6/50 MG Tablet PO SCH ×2 (11:43→20:39)
[2018-03-30] MEDS: Metoprolol Tartrate 25 MG Tablet PO SCH ×2 (11:43→20:39)
[2018-03-30] MEDS: hydrALAZINE 50 MG Tablet PO SCH ×3 (11:43→18:13)
--- NOTE | 2018-03-30 12:01 | P.PNIM ---
Subjective Interval history: Patient sitting upright in chair. Still has occasional pain near left flank. No other complaints. Physical Exam Vital signs: Vital Signs 03/29/18 12:00 03/29/18 16:00 03/29/18 20:00 Temperature 98.4 F 98.1 F 98.5 F Pulse Rate 92 H 88 108 H Respiratory Rate 18 18 17 Blood Pressure 139/87 134/82 127/78 Pulse Oximetry 96 97 96 03/29/18 20:43 03/30/18 00:00 03/30/18 08:00 Temperature 98.8 F 98.6 F Pulse Rate 92 H 91 H Respiratory Rate 18 17 18 Blood Pressure 124/58 L 148/88 H Pulse Oximetry 96 96 03/30/18 09:45 Temperature Pulse Rate Respiratory Rate Blood Pressure Pulse Oximetry 96 Intake & Output 03/29/18 03/30/18 03/30/18 18:59 06:59 18:59 Intake Total 480 / 480 Output Total 1350 / 1350 Balance -870 / -870 Weight 52.8 kg Intake: Oral 480 / 480 Output: Urine 1350 / 1350 Other: Date of Last Bowel Movement 03/28/18 03/30/18 # Bowel Movements 0 2 Narrative: Patient sitting down in chair alert and oriented S1S2 CTA b/l Left sided nephrostomy tube with bloody urine in bag no edema of the exts no focal neuro deficits Urinary Catheter Management Indwelling Urethral Catheter: Cath placed during this visit: yes Reason for continuing: Hourly intake/output Insertion date: 03/09/18 Insertion time: 10:03 3-way Urethral: Cath placed during this visit: yes Reason for continuing: Hourly intake/output Insertion date: 03/21/18 Results Labs CBC & Chem 7: 03/30/18 06:55 03/30/18 06:55 Procedures Procedures: 03/08percutaneous nephrostomy in the left kidney 03/16 upper endoscopy 03/17 right IJ Vas-Cath 03/21 Cystoscopy with clot retention with bilateral retrograde studies, right ureteral dilatation, bilateral double-J stent insertio Assessment and Plan (1) Acute kidney injury: Code(s): N17.9 - Acute kidney failure, unspecified Status: Acute (2) Hypertension: Code(s): I10 - Essential (primary) hypertension Status: Acute (3) Hydronephrosis of left kidney: Code(s): N13.30 - Unspecified hydronephrosis Status: Chronic Onset Date: Unknown (4) Anemia: Code(s): D64.9 - Anemia, unspecified Status: Acute Plan This patient is a 37 y/o male with abd pain and hematuria who was found to be septic due to pyelonephritis with left horseshoe kidney and severe hydronephrosis and upj stenosis. He was admitted and evaluated by urology who set the patient up for percutaneous nephrostomy tube by IR on 03/08. Patient continued to have gross hematuria and required 2 units prbc on 03/08 and again on 03/11. Patient also had worsening renal failure and is being followed by nephrology. 1. Septic shock with hypotension and Lactic acidosis 03/11 pyelonephritis. Shock resolved, lactate was elevated at 6.9 initially. S/p tx with zosyn. Blood cxs negative, urine cx negative. 2. Severe hydronephrosis with upj obstruction with left horseshoe kidney s/p percutaneous nephrostomy tube placement 03/[address] scan abd/pelvis shows significant hemorrhage inside the left kidney. 03/21 status post cystoscope with stenting by urology. Urology following the patient, recommending conservative management for now. Urology is recommending conservative management for now. Hgb is stable 10.4 today, nephrostomy tube shows bloody urine. F/u am labs. 3. PARISH likely due to ATN, vancomycin, sepsis, and previous obstruction Patient is having urine output HD will be done again today as per Nephrology note. Continue to follow with Nephrology recs. Cr 4.2, slightly downtrended. Avoid nephrotoxic agents. F/u am labs 5. Dysphagia normal barium swallow, Continue Protonix EGD 03/16 showed esophageal stricture status post dilatation biopsy pending now tolerating solid food 6. Hypertension history controlled, continue hydralazine metoprolol Scds for dvt prophylaxis, no pharmacotherapy given current hemorrhage. Progress Note: Quality VTE Deep Vein Thrombosis/Pulmonary Embolism Present on Admission: No _ (1) Hypertension Qualifiers: Hypertension type: (2) Anemia Qualifiers: Anemia type: Iron deficiency anemia type: Vitamin B12 deficiency anemia type: Folate deficiency anemia type: Bone marrow failure anemia type: Hemolytic anemia type: Other causes of anemia: Chronic kidney disease stage :
--- NOTE | 2018-03-30 17:07 | P.DCO ---
Diagnosis (1) Acute kidney injury: Status: Acute (2) Hypertension: Status: Acute (3) Hydronephrosis of left kidney: Status: Chronic (4) Anemia: Status: Acute Physical Therapy Order: Evaluate and treat Home Health Nursing Order: Medical education and Nursing assessment with vital signs Case Management Consult Case Management Consult-Home Health: Yes I have seen patient Khoa Quinonez on 03/30/18. My clinical findings support the need for the requested home health care services because: Deconditioned with increased weakness and Need for psychosocial assistance I certify that my clinical findings support that this patient is homebound because: _ (1) Hypertension Qualifiers: Hypertension type: (2) Anemia Qualifiers: Anemia type: Iron deficiency anemia type: Vitamin B12 deficiency anemia type: Folate deficiency anemia type: Bone marrow failure anemia type: Hemolytic anemia type: Other causes of anemia: Chronic kidney disease stage :
[2018-03-31 07:59] LABS: Albumin 3.1 g/dL (3.4-5.0); Calcium 8.6 mg/dL (8.5-10.1); Carbon Dioxide 28.5 meq/L (21.0-32.0); Phosphorus 4.1 mg/dL (2.5-4.9); Potassium 3.9 meq/L (3.5-5.1)
[2018-03-31] MEDS: hydrALAZINE 50 MG Tablet PO SCH ×3 (09:29→17:24)
[2018-03-31] MEDS: Senna/Docusate Sodium 8.6/50 MG Tablet PO SCH ×2 (09:29→21:57)
[2018-03-31] MEDS: Metoprolol Tartrate 25 MG Tablet PO SCH ×2 (09:29→21:57)
[2018-03-31] MEDS: HYDROmorphone PF Inj 0.5 MG/0.5 ML Syringe IV.PUSH PRN (09:53)
--- NOTE | 2018-03-31 14:45 | P.PNIM ---
Subjective Interval history: Patient ambulating around the unit with PT. Occasionally has left sided flank pain. No other complaints. Physical Exam Vital signs: Vital Signs 03/30/18 15:41 03/30/18 16:00 03/30/18 20:40 Temperature 98.8 F 99.5 F Pulse Rate 98 H 84 Respiratory Rate 18 19 18 Blood Pressure 127/84 131/80 Pulse Oximetry 97 97 03/30/18 21:19 03/31/18 00:05 03/31/18 04:00 Temperature 98.4 F Pulse Rate 82 Respiratory Rate 16 18 18 Blood Pressure 128/80 Pulse Oximetry 97 03/31/18 05:15 03/31/18 07:45 03/31/18 07:46 Temperature 97.9 F 97.8 F Pulse Rate 89 80 Respiratory Rate 18 17 Blood Pressure 132/87 130/80 Pulse Oximetry 96 97 97 03/31/18 10:23 03/31/18 13:00 Temperature 97.9 F Pulse Rate 82 Respiratory Rate 20 16 Blood Pressure 132/86 Pulse Oximetry Intake & Output 03/30/18 03/31/18 03/31/18 18:59 06:59 18:59 Intake Total 1200 / 1200 Output Total 500 / 500 1300 / 1300 Balance 700 / 700 -1300 / -1300 Weight 59.9 kg Intake: Oral 1200 / 1200 Output: Urine 500 / 500 1300 / 1300 Other: Date of Last Bowel Movement 03/30/18 03/30/18 03/30/18 # Bowel Movements 2 Narrative: Patient sitting down in chair alert and oriented S1S2 CTA b/l Left sided nephrostomy tube with bloody urine in bag no edema of the exts no focal neuro deficits Urinary Catheter Management Indwelling Urethral Catheter: Cath placed during this visit: yes Reason for continuing: Gross Hematuria Insertion date: 03/09/18 Insertion time: 10:03 3-way Urethral: Cath placed during this visit: yes Reason for continuing: Gross Hematuria Insertion date: 03/21/18 Results Labs CBC & Chem 7: 03/30/18 06:55 03/31/18 07:12 Procedures Procedures: 03/08percutaneous nephrostomy in the left kidney 03/16 upper endoscopy 03/17 right IJ Vas-Cath 03/21 Cystoscopy with clot retention with bilateral retrograde studies, right ureteral dilatation, bilateral double-J stent insertio Assessment and Plan (1) Acute kidney injury: Code(s): N17.9 - Acute kidney failure, unspecified Status: Acute (2) Hypertension: Code(s): I10 - Essential (primary) hypertension Status: Acute (3) Hydronephrosis of left kidney: Code(s): N13.30 - Unspecified hydronephrosis Status: Chronic Onset Date: Unknown (4) Anemia: Code(s): D64.9 - Anemia, unspecified Status: Acute Plan This patient is a 37 y/o male with abd pain and hematuria who was found to be septic due to pyelonephritis with left horseshoe kidney and severe hydronephrosis and upj stenosis. He was admitted and evaluated by urology who set the patient up for percutaneous nephrostomy tube by IR on 03/08. Patient continued to have gross hematuria and required 2 units prbc on 03/08 and again on 03/11. Patient also had worsening renal failure and is being followed by nephrology. 1. Septic shock with hypotension and Lactic acidosis 03/11 pyelonephritis. Resolved. Shock resolved, lactate was elevated at 6.9 initially. S/p tx with zosyn. Blood cxs negative, urine cx negative. 2. Severe hydronephrosis with upj obstruction with left horseshoe kidney s/p percutaneous nephrostomy tube placement 03/[address] scan abd/pelvis shows significant hemorrhage inside the left kidney. 03/21 status post cystoscope with stenting by urology. Urology following the patient, recommending conservative management for now. Urology is recommending conservative management for now. Hgb is stable 10.4 yesterday, nephrostomy tube shows bloody urine. F/u am labs. Patient will need clearance from Urology prior to discharge. 3. PARISH likely due to ATN, vancomycin, sepsis, and previous obstruction Patient is having urine output HD will be done again today as per Nephrology note. Continue to follow with Nephrology recs. Cr 4.2 F/u am labs Avoid nephrotoxic agents. Patient will need clearance from nephrology prior to discharge. 5. Dysphagia normal barium swallow, Continue Protonix EGD 03/16 showed esophageal stricture status post dilatation biopsy pending now tolerating solid food 6. Hypertension history controlled, continue hydralazine metoprolol Scds for dvt prophylaxis, no pharmacotherapy given current hemorrhage. Discharge planning: Patient will need clearance from Nephrology and Urology prior to discharge. Progress Note: Quality VTE Deep Vein Thrombosis/Pulmonary Embolism Present on Admission: No _ (1) Hypertension Qualifiers: Hypertension type: (2) Anemia Qualifiers: Anemia type: Iron deficiency anemia type: Vitamin B12 deficiency anemia type: Folate deficiency anemia type: Bone marrow failure anemia type: Hemolytic anemia type: Other causes of anemia: Chronic kidney disease stage :
--- NOTE | 2018-03-31 17:10 | P.PNNP ---
Subjective Interval history: Patient is alert, occ. nausea and abd. pain,not in distress. Physical Exam Vital signs: Vital Signs 03/30/18 20:40 03/30/18 21:19 03/31/18 00:05 Temperature 99.5 F 98.4 F Pulse Rate 84 82 Respiratory Rate 18 16 18 Blood Pressure 131/80 128/80 Pulse Oximetry 97 97 03/31/18 04:00 03/31/18 05:15 03/31/18 07:45 Temperature 97.9 F 97.8 F Pulse Rate 89 80 Respiratory Rate 18 18 17 Blood Pressure 132/87 130/80 Pulse Oximetry 96 97 03/31/18 07:46 03/31/18 10:23 03/31/18 13:00 Temperature 97.9 F Pulse Rate 82 Respiratory Rate 20 16 Blood Pressure 132/86 Pulse Oximetry 97 03/31/18 16:48 Temperature 98.3 F Pulse Rate 83 Respiratory Rate 18 Blood Pressure 117/75 Pulse Oximetry 96 Intake & Output 03/30/18 03/31/18 03/31/18 18:59 06:59 18:59 Intake Total 1200 / 1200 Output Total 500 / 500 1300 / 1300 Balance 700 / 700 -1300 / -1300 Weight 59.9 kg Intake: Oral 1200 / 1200 Output: Urine 500 / 500 1300 / 1300 Other: Date of Last Bowel Movement 03/30/18 03/30/18 03/30/18 # Bowel Movements 2 Narrative: GENERAL: Alert and oriented. Thin SKIN: Warm and dry. NECK: Supple, trachea midline. No JVD CARDIOVASCULAR: Tachycardia. Regular rate and rhythm without murmurs, gallops, or rubs. right IJ vas cath. RESPIRATORY: Breath sounds equal bilaterally. No accessory muscle use. GASTROINTESTINAL: Abdomen soft, non-tender, nondistended. +BS GI: Indwelling price catheter with red colored urine. MUSCULOSKELETAL: No cyanosis, or edema. . - Urinary Catheter Management Indwelling Urethral Catheter Cath placed during this visit: yes Reason for continuing: Gross Hematuria Insertion date: 03/09/18 Insertion time: 10:03 3-way Urethral Cath placed during this visit: yes Reason for continuing: Gross Hematuria Insertion date: 03/21/18 Assessment and Plan - Assessment (1) Acute kidney injury Code(s): N17.9 - Acute kidney failure, unspecified Status: Acute Plan: Patient with horse shoe kidney, and develop PARISH. Creatinine is 4.2, remain same. HD is on hold. Non oliguric, has still hematuria. Urology following. Watch for renal recovery. Continue to hold HD for now. (2) Hypertension Code(s): I10 - Essential (primary) hypertension Status: Acute Plan: continue to monitor. Better controlled. (3) Hydronephrosis of left kidney Code(s): N13.30 - Unspecified hydronephrosis Status: Chronic Onset Date: Unknown Plan: Cysto with stent placement. (4) Anemia Code(s): D64.9 - Anemia, unspecified Status: Acute Plan: HGB at stable Transfuse for HGB less than 7.0 Epogen with dialysis Labs in AM
[2018-03-31] MEDS: Sod Chloride 0.9% Inj 1,000 ML IV.CONT SCH (17:24)
[2018-04-01] MEDS: Sod Chloride 0.9% Inj 1,000 ML IV.CONT SCH ×2 (06:22→18:11)
[2018-04-01] MEDS: hydrALAZINE 50 MG Tablet PO SCH ×3 (08:58→18:11)
[2018-04-01] MEDS: Metoprolol Tartrate 25 MG Tablet PO SCH ×2 (08:58→20:42)
[2018-04-01] MEDS: Senna/Docusate Sodium 8.6/50 MG Tablet PO SCH ×2 (08:58→20:42)
[2018-04-01 09:28] LABS: Hematocrit 33.4 % (39.0-51.0)
[2018-04-01 09:48] LABS: Albumin 3.3 g/dL (3.4-5.0); Calcium 8.8 mg/dL (8.5-10.1); Carbon Dioxide 26.4 meq/L (21.0-32.0); Magnesium 1.7 mg/dL (1.5-2.5); Potassium 4.2 meq/L (3.5-5.1)
--- NOTE | 2018-04-01 17:32 | P.PNIM ---
Subjective Interval history: Patient sitting in bed watching tv. Complains of occasional left sided flank pain. He says he is wondering if he will need another session of HD. No other complaints. Physical Exam Vital signs: Vital Signs 03/31/18 20:00 04/01/18 00:00 04/01/18 00:14 Temperature 98.9 F 99.1 F Pulse Rate 95 H 77 Respiratory Rate 16 16 16 Blood Pressure 126/67 118/73 Pulse Oximetry 98 96 04/01/18 04:00 04/01/18 07:10 04/01/18 07:59 Temperature 99.5 F 98.4 F Pulse Rate 87 78 Respiratory Rate 16 16 18 Blood Pressure 134/85 139/92 H Pulse Oximetry 95 97 04/01/18 10:59 04/01/18 12:00 04/01/18 15:51 Temperature 98.3 F 98.3 F Pulse Rate 86 98 H Respiratory Rate 16 16 18 Blood Pressure 136/86 130/81 Pulse Oximetry 97 97 Intake & Output 03/31/18 04/01/18 04/01/18 18:59 06:59 18:59 Intake Total 1240 / 1240 Output Total 1000 / 1000 1305 / 1305 Balance -1000 / -1000 -65 / -65 Weight 60 kg Intake: IV 1000 / 1000 NS Inj 1,000 ML @ 84 mls/hr IV. 1000 / 1000 CONT .[id number] [facility] Rx#:[id number] Oral 240 / 240 Output: Urine Amount (Catheter) 1000 / 1000 1305 / 1305 3-way Urethral 1000 / 1000 1305 / 1305 Other: Bladder Irrigation Fluid - Amount Instilled 3-way Urethral 0 Date of Last Bowel Movement 03/30/18 # Bowel Movements 0 Narrative: Patient sitting down in chair alert and oriented S1S2 CTA b/l Left sided nephrostomy tube with bloody urine in bag no edema of the exts no focal neuro deficits Urinary Catheter Management Indwelling Urethral Catheter: Cath placed during this visit: yes Reason for continuing: Gross Hematuria Insertion date: 03/09/18 Insertion time: 10:03 3-way Urethral: Cath placed during this visit: yes Reason for continuing: Gross Hematuria Insertion date: 03/21/18 Results Labs CBC & Chem 7: 04/01/18 09:08 04/01/18 09:08 Procedures Procedures: 03/08percutaneous nephrostomy in the left kidney 03/16 upper endoscopy 03/17 right IJ Vas-Cath 03/21 Cystoscopy with clot retention with bilateral retrograde studies, right ureteral dilatation, bilateral double-J stent insertio Assessment and Plan (1) Acute kidney injury: Code(s): N17.9 - Acute kidney failure, unspecified Status: Acute (2) Hypertension: Code(s): I10 - Essential (primary) hypertension Status: Acute (3) Hydronephrosis of left kidney: Code(s): N13.30 - Unspecified hydronephrosis Status: Chronic Onset Date: Unknown (4) Anemia: Code(s): D64.9 - Anemia, unspecified Status: Acute Plan This patient is a 37 y/o male with abd pain and hematuria who was found to be septic due to pyelonephritis with left horseshoe kidney and severe hydronephrosis and upj stenosis. He was admitted and evaluated by urology who set the patient up for percutaneous nephrostomy tube by IR on 03/08. Patient continued to have gross hematuria and required 2 units prbc on 03/08 and again on 03/11. Patient also had worsening renal failure and is being followed by nephrology. 04/01/18 Patient examined, labs and vitals reviewed. Nephrology following the patient. Holding HD for now. Monitoring the patient closely for need for another session of HD. Patient will need clearance from Nephrology prior to discharge. Hgb stable, at 11 today. Still hematuria from left nephrostomy tube. Urology following. Once clear from nephrology and Urology will make a discharge plan. 1. Septic shock with hypotension and Lactic acidosis 03/11 pyelonephritis. Resolved. Shock resolved, lactate was elevated at 6.9 initially. S/p tx with zosyn. Blood cxs negative, urine cx negative. 2. Severe hydronephrosis with upj obstruction with left horseshoe kidney s/p percutaneous nephrostomy tube placement 03/[address] scan abd/pelvis shows significant hemorrhage inside the left kidney. 03/21 status post cystoscope with stenting by urology. Urology following the patient, recommending conservative management for now. Urology is recommending conservative management for now. Hgb is stable 10.4 yesterday, nephrostomy tube shows bloody urine. F/u am labs. Patient will need clearance from Urology prior to discharge. 3. PARISH likely due to ATN, vancomycin, sepsis, and previous obstruction Patient is having urine output HD will be done again today as per Nephrology note. Continue to follow with Nephrology recs. Cr 4.2 F/u am labs Avoid nephrotoxic agents. Patient will need clearance from nephrology prior to discharge. 5. Dysphagia normal barium swallow, Continue Protonix EGD 03/16 showed esophageal stricture status post dilatation biopsy pending now tolerating solid food 6. Hypertension history controlled, continue hydralazine metoprolol Scds for dvt prophylaxis, no pharmacotherapy given current hemorrhage. Discharge planning: Patient will need clearance from Nephrology and Urology prior to discharge. Progress Note: Quality VTE Deep Vein Thrombosis/Pulmonary Embolism Present on Admission: No _ (1) Hypertension Qualifiers: Hypertension type: (2) Anemia Qualifiers: Anemia type: Iron deficiency anemia type: Vitamin B12 deficiency anemia type: Folate deficiency anemia type: Bone marrow failure anemia type: Hemolytic anemia type: Other causes of anemia: Chronic kidney disease stage :
--- NOTE | 2018-04-01 19:33 | P.PNNP ---
Subjective Interval history: Patient was seen Physical Exam Vital signs: Vital Signs 03/31/18 20:00 04/01/18 00:00 04/01/18 00:14 Temperature 98.9 F 99.1 F Pulse Rate 95 H 77 Respiratory Rate 16 16 16 Blood Pressure 126/67 118/73 Pulse Oximetry 98 96 04/01/18 04:00 04/01/18 07:10 04/01/18 07:59 Temperature 99.5 F 98.4 F Pulse Rate 87 78 Respiratory Rate 16 16 18 Blood Pressure 134/85 139/92 H Pulse Oximetry 95 97 04/01/18 10:59 04/01/18 12:00 04/01/18 15:51 Temperature 98.3 F 98.3 F Pulse Rate 86 98 H Respiratory Rate 16 16 18 Blood Pressure 136/86 130/81 Pulse Oximetry 97 97 Intake & Output 04/01/18 04/01/18 04/02/18 06:59 18:59 06:59 Intake Total 1240 / 1240 1780 / 1780 Output Total 1305 / 1305 1050 / 1050 Balance -65 / -65 730 / 730 Weight 60 kg Intake: IV 1000 / 1000 1000 / 1000 NS Inj 1,000 ML @ 84 mls/hr IV. 1000 / 1000 1000 / 1000 CONT .[id number] [facility] Rx#:[id number] Oral 240 / 240 780 / 780 Output: Urine Amount (Catheter) 1305 / 1305 1050 / 1050 3-way Urethral 1305 / 1305 1050 / 1050 Other: Bladder Irrigation Fluid - Amount Instilled 3-way Urethral 0 # Bowel Movements 1 Narrative: GENERAL: Alert and oriented. Thin SKIN: Warm and dry. NECK: Supple, trachea midline. No JVD CARDIOVASCULAR: Tachycardia. Regular rate and rhythm without murmurs, gallops, or rubs. right IJ vas cath. RESPIRATORY: Breath sounds equal bilaterally. No accessory muscle use. GASTROINTESTINAL: Abdomen soft, non-tender, nondistended. +BS GI: Indwelling price catheter with red colored urine. MUSCULOSKELETAL: No cyanosis, or edema. . - Urinary Catheter Management Indwelling Urethral Catheter Cath placed during this visit: yes Reason for continuing: Gross Hematuria Insertion date: 03/09/18 Insertion time: 10:03 3-way Urethral Cath placed during this visit: yes Reason for continuing: Gross Hematuria Insertion date: 03/21/18 Assessment and Plan - Assessment (1) Acute kidney injury Code(s): N17.9 - Acute kidney failure, unspecified Status: Acute Plan: Patient seen and examined, agree with above. Creatinine is 4.02 slow improvement, hold HD since yesterday Watch for renal recovery. Possible HD if worse. (2) Hypertension Code(s): I10 - Essential (primary) hypertension Status: Acute Plan: continue to monitor. Better controlled. (3) Hydronephrosis of left kidney Code(s): N13.30 - Unspecified hydronephrosis Status: Chronic Onset Date: Unknown Plan: Cysto with stent placement. (4) Anemia Code(s): D64.9 - Anemia, unspecified Status: Acute Plan: HGB at stable Transfuse for HGB less than 7.0 Epogen with dialysis Labs in AM
[2018-04-02] MEDS: Sod Chloride 0.9% Inj 1,000 ML IV.CONT SCH ×2 (05:05→16:32)
[2018-04-02 07:48] LABS: Calcium 8.3 mg/dL (8.5-10.1); Carbon Dioxide 22.4 meq/L (21.0-32.0); Phosphorus 3.5 mg/dL (2.5-4.9)
[2018-04-02] MEDS: Senna/Docusate Sodium 8.6/50 MG Tablet PO SCH ×2 (08:47→20:30)
[2018-04-02] MEDS: Metoprolol Tartrate 25 MG Tablet PO SCH ×2 (08:47→20:30)
[2018-04-02] MEDS: hydrALAZINE 50 MG Tablet PO SCH ×3 (08:47→17:36)
--- NOTE | 2018-04-02 13:55 | P.PNIM ---
Subjective Interval history: Patient layin in bed. No acute distress. He is asking about future HD. No other complaints. Physical Exam Vital signs: Vital Signs 04/01/18 15:51 04/01/18 20:00 04/01/18 20:47 Temperature 98.3 F 99.1 F Pulse Rate 98 H 96 H Respiratory Rate 18 17 Blood Pressure 130/81 146/87 H Pulse Oximetry 97 96 96 04/01/18 20:55 04/02/18 00:00 04/02/18 04:00 Temperature 99.2 F 98.9 F Pulse Rate 93 H 86 93 H Respiratory Rate 18 16 Blood Pressure 130/76 134/87 Pulse Oximetry 96 96 04/02/18 04:13 04/02/18 08:00 04/02/18 09:21 Temperature 98.7 F Pulse Rate 73 Respiratory Rate 18 17 16 Blood Pressure 149/90 H Pulse Oximetry 96 04/02/18 12:00 Temperature 98.8 F Pulse Rate 100 H Respiratory Rate 18 Blood Pressure 138/87 Pulse Oximetry 96 Intake & Output 04/01/18 04/02/18 04/02/18 18:59 06:59 18:59 Intake Total 1780 / 1780 1240 / 1240 Output Total 1050 / 1050 1200 / 1200 Balance 730 / 730 40 / 40 Weight 60 kg Intake: IV 1000 / 1000 1000 / 1000 NS Inj 1,000 ML @ 84 mls/hr IV. 1000 / 1000 1000 / 1000 CONT .[id number] [facility] Rx#:[id number] Oral 780 / 780 240 / 240 Output: Urine Amount (Catheter) 1050 / 1050 1200 / 1200 3-way Urethral 1050 / 1050 1200 / 1200 Other: Date of Last Bowel Movement 04/01/18 # Bowel Movements 1 Narrative: Patient sitting down in chair alert and oriented S1S2 CTA b/l Left sided nephrostomy tube with bloody urine in bag no edema of the exts no focal neuro deficits Urinary Catheter Management Indwelling Urethral Catheter: Cath placed during this visit: yes Reason for continuing: Gross Hematuria Insertion date: 03/09/18 Insertion time: 10:03 3-way Urethral: Cath placed during this visit: yes Reason for continuing: Gross Hematuria Insertion date: 03/21/18 Results Labs CBC & Chem 7: 04/03/18 06:58 04/03/18 06:58 Procedures Procedures: 03/08percutaneous nephrostomy in the left kidney 03/16 upper endoscopy 03/17 right IJ Vas-Cath 03/21 Cystoscopy with clot retention with bilateral retrograde studies, right ureteral dilatation, bilateral double-J stent insertio Assessment and Plan (1) Acute kidney injury: Code(s): N17.9 - Acute kidney failure, unspecified Status: Acute (2) Hypertension: Code(s): I10 - Essential (primary) hypertension Status: Acute (3) Hydronephrosis of left kidney: Code(s): N13.30 - Unspecified hydronephrosis Status: Chronic Onset Date: Unknown (4) Anemia: Code(s): D64.9 - Anemia, unspecified Status: Acute Plan This patient is a 37 y/o male with abd pain and hematuria who was found to be septic due to pyelonephritis with left horseshoe kidney and severe hydronephrosis and upj stenosis. He was admitted and evaluated by urology who set the patient up for percutaneous nephrostomy tube by IR on 03/08. Patient continued to have gross hematuria and required 2 units prbc on 03/08 and again on 03/11. Patient also had worsening renal failure and is being followed by nephrology. 04/02/18 Patient examined, labs and vitals reviewed. Nephrology following the patient. Holding HD for now. I will follow up with nephrology regarding further HD. Cr improved to 3.5 as of today. Patient will need clearance from Nephrology prior to discharge. Hgb stable, at 11 yesterday, follow up am labs. Still hematuria from left nephrostomy tube. Urology following. Once clear from nephrology and Urology pt will be discharged. 1. Septic shock with hypotension and Lactic acidosis / pyelonephritis. Resolved. Shock resolved, lactate was elevated at 6.9 initially. S/p tx with zosyn. Blood cxs negative, urine cx negative. 2. Severe hydronephrosis with upj obstruction with left horseshoe kidney s/p percutaneous nephrostomy tube placement 03/[address] scan abd/pelvis shows significant hemorrhage inside the left kidney. 03/21 status post cystoscope with stenting by urology. Urology following the patient, recommending conservative management for now. Urology is recommending conservative management for now. Hgb is stable 10.4 yesterday, nephrostomy tube shows bloody urine. F/u am labs. Patient will need clearance from Urology prior to discharge. 3. PARISH likely due to ATN, vancomycin, sepsis, and previous obstruction Patient is having urine output HD will be done again today as per Nephrology note. Continue to follow with Nephrology recs. Cr 4.2 F/u am labs Avoid nephrotoxic agents. Patient will need clearance from nephrology prior to discharge. 5. Dysphagia normal barium swallow, Continue Protonix EGD 03/16 showed esophageal stricture status post dilatation biopsy pending now tolerating solid food 6. Hypertension history controlled, continue hydralazine metoprolol Scds for dvt prophylaxis, no pharmacotherapy given current hemorrhage. Discharge planning: Patient will need clearance from Nephrology and Urology prior to discharge. Progress Note: Quality VTE Deep Vein Thrombosis/Pulmonary Embolism Present on Admission: No _ (1) Anemia Qualifiers: Anemia type: Bone marrow failure anemia type: Chronic kidney disease stage : Folate deficiency anemia type: Hemolytic anemia type: Iron deficiency anemia type: Other causes of anemia: Vitamin B12 deficiency anemia type: (2) Hypertension Qualifiers: Hypertension type:
--- NOTE | 2018-04-02 15:42 | P.PNNP ---
Subjective Interval history: Patient doing okay Physical Exam Vital signs: Vital Signs 04/01/18 15:51 04/01/18 20:00 04/01/18 20:47 Temperature 98.3 F 99.1 F Pulse Rate 98 H 96 H Respiratory Rate 18 17 Blood Pressure 130/81 146/87 H Pulse Oximetry 97 96 96 04/01/18 20:55 04/02/18 00:00 04/02/18 04:00 Temperature 99.2 F 98.9 F Pulse Rate 93 H 86 93 H Respiratory Rate 18 16 Blood Pressure 130/76 134/87 Pulse Oximetry 96 96 04/02/18 04:13 04/02/18 08:00 04/02/18 09:21 Temperature 98.7 F Pulse Rate 73 Respiratory Rate 18 17 16 Blood Pressure 149/90 H Pulse Oximetry 96 04/02/18 12:00 Temperature 98.8 F Pulse Rate 100 H Respiratory Rate 18 Blood Pressure 138/87 Pulse Oximetry 96 Intake & Output 04/01/18 04/02/18 04/02/18 18:59 06:59 18:59 Intake Total 1780 / 1780 1240 / 1240 Output Total 1050 / 1050 1200 / 1200 Balance 730 / 730 40 / 40 Weight 60 kg Intake: IV 1000 / 1000 1000 / 1000 NS Inj 1,000 ML @ 84 mls/hr IV. 1000 / 1000 1000 / 1000 CONT .[id number] [facility] Rx#:[id number] Oral 780 / 780 240 / 240 Output: Urine Amount (Catheter) 1050 / 1050 1200 / 1200 3-way Urethral 1050 / 1050 1200 / 1200 Other: Date of Last Bowel Movement 04/01/18 # Bowel Movements 1 Narrative: GENERAL: Alert and oriented. Thin SKIN: Warm and dry. NECK: Supple, trachea midline. No JVD CARDIOVASCULAR: Tachycardia. Regular rate and rhythm without murmurs, gallops, or rubs. right IJ vas cath. RESPIRATORY: Breath sounds equal bilaterally. No accessory muscle use. GASTROINTESTINAL: Abdomen soft, non-tender, nondistended. +BS GI: Indwelling price catheter with red colored urine. MUSCULOSKELETAL: No cyanosis, or edema. . - Urinary Catheter Management Indwelling Urethral Catheter Cath placed during this visit: yes Reason for continuing: Gross Hematuria Insertion date: 03/09/18 Insertion time: 10:03 3-way Urethral Cath placed during this visit: yes Reason for continuing: Gross Hematuria Insertion date: 03/21/18 Assessment and Plan - Assessment (1) Acute kidney injury Code(s): N17.9 - Acute kidney failure, unspecified Status: Acute Plan: Patient seen and examined, agree with above. Creatinine is 3.52 slow improvement, hold HD since Tuesday Watch for renal recovery. Dr. Scott to follow. (2) Hypertension Code(s): I10 - Essential (primary) hypertension Status: Acute Plan: continue to monitor. Better controlled. (3) Hydronephrosis of left kidney Code(s): N13.30 - Unspecified hydronephrosis Status: Chronic Onset Date: Unknown Plan: Cysto with stent placement. (4) Anemia Code(s): D64.9 - Anemia, unspecified Status: Acute Plan: HGB at stable Transfuse for HGB less than 7.0 Epogen with dialysis Labs in AM
[2018-04-02] MEDS: Acetaminophen 325 MG Tablet PO PRN (20:30)
[2018-04-03] MEDS: Acetaminophen 325 MG Tablet PO PRN ×2 (00:31→10:35)
[2018-04-03 01:32] LABS: Baso # (Auto) 0.1 th/mm3 (0.0-0.2); Baso % (Auto) 0.6 % (0.0-2.0); Eos # (Auto) 0.3 th/mm3 (0.0-0.4); Eos % (Auto) 1.8 % (0.0-4.0); Hematocrit 30.3 % (39.0-51.0); Hemoglobin 9.7 gm/dL (13.0-17.0); Lymph # (Auto) 0.9 th/mm3 (1.0-4.8); Mean Corpuscular HGB Conc 32.2 % (32.0-36.0); Mean Corpuscular Hemoglobin 28.6 pg (27.0-34.0); Mean Platelet Volume 8.4 fL (7.0-11.0); Mono # (Auto) 1.5 th/mm3 (0.0-0.9); Mono % (Auto) 10.6 % (0.0-8.0); Neut # (Auto) 11.6 th/mm3 (1.8-7.7); Platelet Count 197 th/mm3 (150-450); Red Cell Distribution Width 15.9 % (11.6-17.2); White Blood Count 14.3 th/mm3 (4.0-11.0)
[2018-04-03 01:51] LABS: Alanine Aminotransferase 10 U/L (12-78); Albumin 2.9 g/dL (3.4-5.0); Anion Gap 8 meq/L (5-15); Aspartate Aminotransferase 8 U/L (15-37); Blood Urea Nitrogen 24 mg/dL (7-18); Calcium 7.8 mg/dL (8.5-10.1); Carbon Dioxide 23.2 meq/L (21.0-32.0); Chloride 111 meq/L (98-107); Glomerular Filtration Rate 20 mL/min (>89); Glucose,Random 101 mg/dL (74-106); Magnesium 1.3 mg/dL (1.5-2.5); Potassium 4.2 meq/L (3.5-5.1); Sodium 142 meq/L (136-145)
[2018-04-03 01:53] LABS: Alkaline Phosphatase 53 U/L (45-117); Total Protein 6.2 g/dL (6.4-8.2)
[2018-04-03 01:56] LABS: Bacteria,Urine Occasional /hpf; Bilirubin,Urine Negative (Negative); Clarity,Urine Cloudy (Clear); Color,Urine Red (Yellw/Straw); Glucose,Urine (UA) 50 mg/dL (Negative); Leukocyte Esterase,Urine Moderate (Negative); Nitrite,Urine Positive (Negative); Specific Gravity,Urine 1.012 (1.002-1.035)
[2018-04-03] MEDS: Sod Chloride 0.9% Inj 1,000 ML IV.CONT SCH (05:07)
[2018-04-03 07:20] LABS: Hematocrit 31.5 % (39.0-51.0); Hemoglobin 10.4 gm/dL (13.0-17.0)
[2018-04-03] MEDS: Belladonna Alkaloid/Opium 60 MG Supp RECTAL PRN (07:35)
[2018-04-03 07:50] LABS: Calcium 7.9 mg/dL (8.5-10.1); Carbon Dioxide 21.4 meq/L (21.0-32.0); Magnesium 1.3 mg/dL (1.5-2.5); Potassium 4.1 meq/L (3.5-5.1)
--- NOTE | 2018-04-03 09:03 | P.PNIM ---
Subjective Interval history: Patient sitting down in a chair. Says he had a few fevers last night. Still has hematuria from the left nephrostomy tube. No other complaints. Physical Exam Vital signs: Vital Signs 04/02/18 09:21 04/02/18 12:00 04/02/18 13:54 Temperature 98.8 F Pulse Rate 100 H Respiratory Rate 16 18 18 Blood Pressure 138/87 Pulse Oximetry 96 04/02/18 15:52 04/02/18 20:00 04/02/18 22:04 Temperature 98.4 F 100.7 F H Pulse Rate 78 88 Respiratory Rate 18 16 Blood Pressure 120/79 132/84 Pulse Oximetry 97 97 97 04/03/18 00:00 04/03/18 00:04 04/03/18 01:31 Temperature 101.2 F H 100.6 F H Pulse Rate 99 H 97 H Respiratory Rate 16 Blood Pressure 128/82 Pulse Oximetry 96 04/03/18 04:01 04/03/18 04:06 04/03/18 05:00 Temperature 98.1 F Pulse Rate 88 90 Respiratory Rate 18 16 Blood Pressure 139/91 H Pulse Oximetry 97 Intake & Output 04/02/18 04/03/18 04/03/18 18:59 06:59 18:59 Intake Total 1960 / 1960 1100 / 1100 Output Total 1050 / 1050 1100 / 1100 Balance 910 / 910 0 / 0 Weight 59.2 kg Intake: IV 1000 / 1000 1100 / 1100 NS Inj 1,000 ML @ 84 mls/hr IV. 1000 / 1000 1000 / 1000 CONT .[id number] [facility] Rx#:[id number] Rocephin Inj 1,000 MG In NS Inj 100 / 100 100 ML @ 200 mls/hr IV.SIG ONCE ONE Rx#:[id number] Oral 960 / 960 Output: Urine Amount (Catheter) 1050 / 1050 1100 / 1100 3-way Urethral 1050 / 1050 1100 / 1100 Other: Date of Last Bowel Movement 04/02/18 Narrative: Patient sitting down in chair alert and oriented S1S2 CTA b/l Left sided nephrostomy tube with bloody urine in bag no edema of the exts no focal neuro deficits Urinary Catheter Management Indwelling Urethral Catheter: Cath placed during this visit: yes Reason for continuing: Gross Hematuria Insertion date: 03/09/18 Insertion time: 10:03 3-way Urethral: Cath placed during this visit: yes Reason for continuing: Gross Hematuria Insertion date: 03/21/18 Results Labs CBC & Chem 7: 04/03/18 06:58 04/03/18 06:58 Procedures Procedures: 03/08percutaneous nephrostomy in the left kidney 03/16 upper endoscopy 03/17 right IJ Vas-Cath 03/21 Cystoscopy with clot retention with bilateral retrograde studies, right ureteral dilatation, bilateral double-J stent insertio Assessment and Plan (1) Acute kidney injury: Code(s): N17.9 - Acute kidney failure, unspecified Status: Acute (2) Hypertension: Code(s): I10 - Essential (primary) hypertension Status: Acute (3) Hydronephrosis of left kidney: Code(s): N13.30 - Unspecified hydronephrosis Status: Chronic Onset Date: Unknown (4) Anemia: Code(s): D64.9 - Anemia, unspecified Status: Acute Plan This patient is a 37 y/o male with abd pain and hematuria who was found to be septic due to pyelonephritis with left horseshoe kidney and severe hydronephrosis and upj stenosis. He was admitted and evaluated by urology who set the patient up for percutaneous nephrostomy tube by IR on 03/08. Patient continued to have gross hematuria and required 2 units prbc on 03/08 and again on 03/11. Patient also had worsening renal failure and is being followed by nephrology. 04/03/18 Patient examined, labs and vitals reviewed. Case discussed with Dr. Turpin. Patient has had a few febrile episodes since last night. He has a price catheter in place. U/A is positive for UTI. I discussed this with Dr. Turpin from Urology and it would be best to remove the price catheter as his fevers are likely caused by a UTI. Will start IV antibiotics. Nephrology following the patient. I will be cautious with IV antibiotics given his improving PARISH and HD. Follow up all cxs. I will follow up with nephrology regarding further HD. Cr improved to 3.2 as of today. Patient will need clearance from Nephrology prior to discharge. Hgb stable, at 10.4 today. follow up am labs. Still hematuria from left nephrostomy tube. Tolerating po diet. Discharge planning: will need clearance from nephrology and Urology prior to discharge. Now spiking fevers. 1. Septic shock with hypotension and Lactic acidosis 2/2 pyelonephritis. Resolved. Shock resolved, lactate was elevated at 6.9 initially. S/p tx with zosyn. Blood cxs negative, urine cx negative. 2. Severe hydronephrosis with upj obstruction with left horseshoe kidney s/p percutaneous nephrostomy tube placement 03/[address] scan abd/pelvis shows significant hemorrhage inside the left kidney. 03/21 status post cystoscope with stenting by urology. Urology following the patient, recommending conservative management for now. Urology is recommending conservative management for now. Hgb is stable 10.4 yesterday, nephrostomy tube shows bloody urine. F/u am labs. Patient will need clearance from Urology prior to discharge. 3. PARISH likely due to ATN, vancomycin, sepsis, and previous obstruction Patient is having urine output HD will be done again today as per Nephrology note. Continue to follow with Nephrology recs. Cr 4.2 downtrending....3.2 today. F/u am labs Avoid nephrotoxic agents. Patient will need clearance from nephrology prior to discharge. 5. Dysphagia normal barium swallow, Continue Protonix EGD 03/16 showed esophageal stricture status post dilatation biopsy pending now tolerating solid food 6. Hypertension history controlled, continue hydralazine metoprolol Scds for dvt prophylaxis, no pharmacotherapy given current hemorrhage. Discharge planning: Patient will need clearance from Nephrology and Urology prior to discharge. Progress Note: Quality VTE Deep Vein Thrombosis/Pulmonary Embolism Present on Admission: No _ (1) Hypertension Qualifiers: Hypertension type: (2) Anemia Qualifiers: Anemia type: Iron deficiency anemia type: Vitamin B12 deficiency anemia type: Folate deficiency anemia type: Bone marrow failure anemia type: Hemolytic anemia type: Other causes of anemia: Chronic kidney disease stage :
--- NOTE | 2018-04-03 09:04 | P.PNURO ---
Subjective Patient symptoms today: Pt seen and examined. Low grade fever noted. Objective Vital Signs: Vital Signs 04/02/18 09:21 04/02/18 12:00 04/02/18 13:54 Temperature 98.8 F Pulse Rate 100 H Respiratory Rate 16 18 18 Blood Pressure 138/87 Pulse Oximetry 96 04/02/18 15:52 04/02/18 20:00 04/02/18 22:04 Temperature 98.4 F 100.7 F H Pulse Rate 78 88 Respiratory Rate 18 16 Blood Pressure 120/79 132/84 Pulse Oximetry 97 97 97 04/03/18 00:00 04/03/18 00:04 04/03/18 01:31 Temperature 101.2 F H 100.6 F H Pulse Rate 99 H 97 H Respiratory Rate 16 Blood Pressure 128/82 Pulse Oximetry 96 04/03/18 04:01 04/03/18 04:06 04/03/18 05:00 Temperature 98.1 F Pulse Rate 88 90 Respiratory Rate 18 16 Blood Pressure 139/91 H Pulse Oximetry 97 Intake & Output 04/02/18 04/03/18 04/03/18 18:59 06:59 18:59 Intake Total 1960 / 1960 1100 / 1100 Output Total 1050 / 1050 1100 / 1100 Balance 910 / 910 0 / 0 Weight 59.2 kg Intake: IV 1000 / 1000 1100 / 1100 NS Inj 1,000 ML @ 84 mls/hr IV. 1000 / 1000 1000 / 1000 CONT .[id number] [facility] Rx#:[id number] Rocephin Inj 1,000 MG In NS Inj 100 / 100 100 ML @ 200 mls/hr IV.SIG ONCE ONE Rx#:[id number] Oral 960 / 960 Output: Urine Amount (Catheter) 1050 / 1050 1100 / 1100 3-way Urethral 1050 / 1050 1100 / 1100 Other: Date of Last Bowel Movement 04/02/18 Result Diagrams: 04/03/18 06:58 04/03/18 06:58 Medications and IVs: Active Medications Generic Name Dose Route Start Last Admin Trade Name Freq PRN Reason Stop Dose Admin Acetaminophen 650 mg 03/20/18 07:59 Tylenol PO Q4H PRN SEE LABEL COMMENTS Acetaminophen 650 mg 03/07/18 23:05 04/03/18 00:31 Tylenol PO 650 mg Q4H PRN Administration Temp > 100.4 Belladonna Alkaloids/Opium 60 mg 03/10/18 15:43 04/03/18 07:35 B & O Supp RECTAL 60 mg Q6HR PRN Administration BLADDER SPASM Diphenhydramine HCl 25 mg 03/20/18 07:59 Benadryl PO Q4H PRN SEE LABEL COMMENTS Diphenhydramine HCl 25 mg 03/17/18 11:03 03/22/18 12:53 Benadryl PO 25 mg UNSCH PRN Administration SEE LABEL COMMENTS Epoetin Brandt 6,000 unit 03/17/18 11:03 03/28/18 15:04 Epogen Inj IV.PUSH 6,000 unit UNSCH PRN Administration SEE LABEL COMMENTS Furosemide 40 mg 03/15/18 09:00 03/18/18 09:53 Lasix Inj IV.PUSH Not Given BID@0900,1800 [facility] Gelatin 1 foam 03/17/18 11:03 Gelfoam 12 Mm/7 Mm Topical TOPICAL PRN PRN help stop bleeding from site Gentamicin Sulfate 20 mg 03/17/18 11:03 03/28/18 15:04 Gentamicin Inj OTHER 20 mg WITH DIALYSIS PRN Administration Dwell Gentamycin Lock Hydralazine HCl 50 mg 03/24/18 14:16 04/02/18 17:36 Apresoline PO 50 mg TID [facility] Administration Hydralazine HCl 10 mg 03/17/18 18:44 03/17/18 19:59 Apresoline Inj IV.PUSH 10 mg Q30M PRN Administration SBP>180, DBP>110 Hydromorphone HCl 0.5 mg 03/18/18 10:15 03/31/18 09:53 Dilaudid Pf Inj IV.PUSH 0.5 mg Q4H PRN Administration BREAKTHROUGH PAIN Sodium Chloride 1,000 mls @ 84 mls/hr 03/31/18 16:45 04/03/18 05:07 Ns Inj IV.CONT 84 mls/hr .[id number] [facility] Administration Magnesium Sulfate 4 gm/ 108 mls @ 25 mls/hr 04/03/18 10:00 Dextrose IV.SIG 04/03/18 14:19 ONCE ONE Cefepime HCl 1,000 mg/ Sodium 100 mls @ 200 mls/hr 04/03/18 09:00 Chloride IV.SIG Q24H [facility] Vancomycin HCl 1,000 mg/ 250 mls @ 250 mls/hr 04/03/18 08:56 Sodium Chloride IV.SIG 04/03/18 09:55 ONCE ONE Albumin Human 100 mls @ 60 mls/hr 03/17/18 11:03 Flexbumin 25% Inj IV.SIG WITH DIALYSIS PRN hypotension / volume replace Sodium Chloride 1,000 mls @ 0 mls/hr 03/17/18 11:03 Ns Inj OTHER .Q0M PRN for prime and rinse back As Directed Sodium Chloride 1,000 mls @ 200 mls/hr 03/17/18 11:03 Ns Inj OTHER .Q5H PRN for dialyzer flush PRN Sodium Chloride 1,000 mls @ 0 mls/hr 03/17/18 11:03 Ns Inj IV.CONT .Q0M PRN hypotension / volume replace As Directed Mannitol 12.5 gm 03/17/18 11:03 Mannitol Inj IV.PUSH UNSCH PRN hypotension / volume replace Megestrol Acetate 40 mg 03/28/18 13:45 04/02/18 08:48 Megace PO 40 mg DAILY [facility] Administration Metoclopramide HCl 2.5 mg 04/01/18 22:00 04/03/18 05:08 Reglan Inj IV.PUSH 2.5 mg Q8HR [facility] Administration Protocol Metoprolol Tartrate 12.5 mg 03/11/18 09:00 04/02/18 20:30 Lopressor PO 12.5 mg BID [facility] Administration Miscellaneous 1 each 03/11/18 10:00 03/22/18 08:00 Pill Splitter OTHER 1 each UNSCH [facility] Administration Naloxone HCl 0.4 mg 03/17/18 16:50 Narcan Inj IV.PUSH UNSCH PRN SEE LABEL COMMENTS Nitroglycerin 0.4 mg 03/17/18 11:03 Nitrostat Sl SL Q5M PRN CHEST PAIN Ondansetron HCl 4 mg 03/07/18 23:05 04/02/18 13:24 Zofran Inj IV.PUSH 4 mg Q6H PRN Administration NAUSEA OR VOMITING Oxybutynin Chloride 5 mg 03/17/18 21:00 04/02/18 20:30 Ditropan PO 5 mg BID [facility] Administration Oxycodone HCl 5 mg 03/18/18 10:16 04/02/18 13:24 Roxicodone PO 5 mg Q4H PRN Administration Acute Pain 1-10 Pantoprazole Sodium 40 mg 03/13/18 15:45 04/02/18 08:47 Protonix PO 40 mg DAILY [facility] Administration Polyethylene Glycol 17 gm 03/09/18 14:24 03/09/18 21:14 Miralax PO 17 gm DAILY PRN Administration Moderate-severe constipation Prochlorperazine Edisylate 5 mg 03/26/18 17:27 03/28/18 13:19 Compazine Inj IV.PUSH 5 mg Q8H PRN Administration SEVERE NAUSEA Senna/Docusate Sodium 1 tab 03/09/18 21:00 04/02/18 20:30 Allyssa-Colace PO 1 tab BID [facility] Administration Sodium Chloride 2 ml 03/08/18 09:00 04/02/18 20:30 Ns Flush IV.FLUSH Not Given BID [facility] Sodium Chloride 2 ml 03/07/18 23:05 03/20/18 21:44 Ns Flush IV.FLUSH 2 ml PRN PRN Administration FLUSH AFTER USING IV ACCESS Sodium Chloride 5 ml 03/17/18 11:03 Ns Flush IV.FLUSH PRN PRN flush each lumen during HD Objective Remarks: CV: sinus tach Abd:soft, mild distension; no rebound Price: old dark blood Ext: neg C/C/E 03/10 CV: sinus tach Abd:soft,less tenderness and distension Price: blood tinged PCNT: bloody 03/10 16:00: SP pains. Bladder not palpable. No SP tenderness. Abd: now non tender LLQ. Bloody urine via nephrostomy, no clots. Bloody urine via price catheter, no clots. 03/11: Scant urine output via Nephrostomy tube. It may not be draining, will wait and see. Fairly good urine output via price catheter. Urine dark blood tinged, no clots. BP varies high to normal, Pulse varies, temp 99. 03/12: See "Subjective" for the Objective. Suspect Vancomycin toxicity causing deterioration in kidney function and decreased urine output. N tube draining dark burgundy urine. PLAN: Dr. Little following the labs. N tube irrigation by IR if needed. 03/13 Abd:soft,nt,nd Left PNCT with blood Price: hematuria 03/14 Abd:soft,nt,nd Left PCNT: bloody Price: blood tinged 03/15 Abd:soft,nt,nd Left PCNT: bloody Price: blood tinged 03/16 Abd:soft,nt,nd Left PCNT: bloody Price: blood tinged 03/17 Abd:soft,nt,nd Left PCNT: bloody Price: blood tinged 03/20 Abd:soft,nt,nd Left PCNT: bloody Price: blood tinged 03/22 Abd:soft,nt,nd Left PCNT: blood tinged Price: clear on slow CBI 03/23 Abd:soft,nt,nd Price: urine clearing on CBI Left PCNT: urine dark; bag leaking 03/24 Abd:soft,nt,nd Price: urine clearing on CBI Left PCNT: urine dark; bag leaking 03/27 Abd:soft,nt,nd Price: urine clearing on CBI Left PCNT: out; dressing applied 03/28 Abd:soft,nt,nd Price: Dark bloody urine; no clots noted 03/29 Abd:soft,nt,nd Price: Dark bloody urine; no clots noted 04/03 Abd:soft,nt,nd Price: bloody urine noted. No clots. 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 Back up plan is to try to place a urinary stent cystoscopically in the OR. However, there is a great possibility that the presumed UPJ stenosis will prevent passage of guide wires and stent. 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 Discussed with Dr. Little. 03/11: N tube may or may not be draining. Sepsis improving. Still having bladder spasms, receiving Morphine. PLAN: Continue same. 03/12 See "Subjective", "Objective". 03/13 37 y.o male with sepsis and h/o horseshoe kidney s/p PCNT placement with hematuria Continue supportive measures for now Transfuse PRBC's today if repeat Hgb is below 8 Monitor u/o; avoid nephrotoxins Will follow. 03/14 37 y.o male with sepsis and horseshoe kidney s/p PCNT with hematuria and ARF Hgb stablized at 8.3 this AM. Creatinine rising to 5.7; u/o dropping Await Nephrology input Monitor u/o Continue conservative measures for now. 03/15 37 y.o male with sepsis and horseshoe kidney s/p PCNT with hematuria and worsening ARF. Creatinine up to 7.2 up from 5.7. Hgb down to 7.8. Will transfuse 1 unit PRBC's. Await Nephrology input Monitor u/o. 03/16 37 y.o male with sepsis and horseshoe kidney s/p PCNT with hematuria and worsening ARF probably due to ATN Continue conservative management from standpoint. No evidence of active bleeding. Will follow. 03/17 37 y.o male with sepsis s/p PCNT with hematuria and ARF Maintain price catheter- urine is clearing and less bloody Continue conservative measures. 03/20 37 y.o male with sepsis s/p PCNT with hematuria and ARF Transfuse [address] scan today Hold Heparin with dialysis. 03/22 37 y.o male s/p cysto with b/l JJ stent insertion with clot evacuation Maintain slow CBI Follow creatinine. Large amount of clot in left collecting system s/p PCNT Continue dialysis for now. Hold heparin with dialysis. Once urine clears will remove PCNT. 03/23 37 y.o male s/p cysto with b/l JJ stent insertion with clot evacuation Maintain slow CBI Continue conservative measures for now Follow labs. B&O suppository for bladder spasm. 03/24 37 y.o male with ARF s/p left PCNT s/p cysto with b/l JJ stent insertion s/p HD yesterday with 1.5 L removed Continue price and PNCT drainage 03/27 37 y.o male with ARF s/p left PCNT s/p cysto with b/l JJ stent insertion. Left PCNT fell out Will leave left PCNT out for now as he has JJ stents in place Ween CBI to off. Will obtain CT scan to evaluate resolution of left renal hematoma. 03/28 37 y.o male with ARF s/p left PCNT s/p cysto with b/l JJ stent insertion. Left PCNT fell out CT scan revealed persistent left renal hematoma s/p PCNT; JJ stents in place Follow Creatinine; HD per renal Continue conservative measures. 03/29 37 y.o male with ARF s/p left PCNT s/p cysto with b/l JJ stent insertion. Left PCNT fell out Follow Creatinine; HD per renal Continue conservative measures. 04/03 37 y.o male with ARF s/p left PCNT s/p cysto with b/l JJ stent insertion. Left PCNT fell out Follow Creatinine; Recommend void trial. Continue conservative measures.
[2018-04-03] MEDS ORDERED: Magnesium Sulfate Inj 4 GM in Dextrose 5% in Water Inj 100 ML IV.SIG ONE ×2 (10:00)
[2018-04-03] MEDS ORDERED: Vancomycin Inj 1,000 MG in Sodium Chlor 0.9% Inj 250 ML IV.SIG ONE (10:00)
[2018-04-03] MEDS: Metoprolol Tartrate 25 MG Tablet PO SCH ×2 (10:43→21:41)
[2018-04-03] MEDS: hydrALAZINE 50 MG Tablet PO SCH ×3 (10:43→19:50)
[2018-04-03] MEDS: Senna/Docusate Sodium 8.6/50 MG Tablet PO SCH ×2 (10:44→21:42)
[2018-04-03] MEDS: Cefepime Inj 500 MG in Sodium Chlor 0.9% Inj 100 ML IV.SIG SCH (14:01)
[2018-04-03 16:04] LABS: Bacteria,Urine Few /hpf; Bilirubin,Urine Negative (Negative); Clarity,Urine Cloudy (Clear); Color,Urine Red (Yellw/Straw); Glucose,Urine (UA) 50 mg/dL (Negative); Leukocyte Esterase,Urine Negative (Negative); Nitrite,Urine Negative (Negative); Specific Gravity,Urine 1.018 (1.002-1.035)
--- NOTE | 2018-04-03 22:14 | P.PNNP ---
Subjective Interval history: Patient is alert, has fever, now afebrile, mild nausea, not in distress. Physical Exam Vital signs: Vital Signs 04/03/18 00:00 04/03/18 00:04 04/03/18 01:31 Temperature 101.2 F H 100.6 F H Pulse Rate 99 H 97 H Respiratory Rate 16 Blood Pressure 128/82 Pulse Oximetry 96 04/03/18 04:01 04/03/18 04:06 04/03/18 05:00 Temperature 98.1 F Pulse Rate 88 90 Respiratory Rate 18 16 Blood Pressure 139/91 H Pulse Oximetry 97 04/03/18 08:00 04/03/18 12:00 04/03/18 16:00 Temperature 100.4 F H 98.4 F 98.8 F Pulse Rate 82 95 H 98 H Respiratory Rate 18 20 20 Blood Pressure 159/94 H 140/85 117/81 Pulse Oximetry 98 99 98 04/03/18 20:00 Temperature 97.7 F Pulse Rate 100 H Respiratory Rate 16 Blood Pressure 126/78 Pulse Oximetry 95 Intake & Output 04/03/18 04/03/18 04/04/18 06:59 18:59 06:59 Intake Total 1100 / 1100 1010 / 1010 108 / 108 Output Total 1100 / 1100 1075 / 1075 Balance 0 / 0 -65 / -65 108 / 108 Weight 59.2 kg Intake: IV 1100 / 1100 350 / 350 108 / 108 NS Inj 1,000 ML @ 84 mls/hr IV. 1000 / 1000 CONT .[id number] [facility] Rx#:[id number] Maxipime Inj 500 MG In NS Inj 100 / 100 100 ML @ 200 mls/hr IV.SIG Q24H [facility] Rx#:[id number] Magnesium Sulfate Inj 4 GM In 108 / 108 D5W Inj 100 ML @ 25 mls/hr IV. SIG ONCE ONE Rx#:[id number] Vancomycin Inj 1,000 MG In NS 250 / 250 Inj 250 ML @ 250 mls/hr IV.SIG ONCE ONE Rx#:[id number] Rocephin Inj 1,000 MG In NS Inj 100 / 100 100 ML @ 200 mls/hr IV.SIG ONCE ONE Rx#:[id number] Oral 660 / 660 Output: Urine 1075 / 1075 Urine Amount (Catheter) 1100 / 1100 3-way Urethral 1100 / 1099 Other: # Voids 1 Date of Last Bowel Movement 04/02/18 04/02/18 # Bowel Movements 1 Narrative: GENERAL: Alert and oriented. Thin SKIN: Warm and dry. NECK: Supple, trachea midline. No JVD CARDIOVASCULAR: Tachycardia. Regular rate and rhythm without murmurs, gallops, or rubs. right IJ vas cath. RESPIRATORY: Breath sounds equal bilaterally. No accessory muscle use. GASTROINTESTINAL: Abdomen soft, non-tender, nondistended. +BS GI: Indwelling price catheter with red colored urine. MUSCULOSKELETAL: No cyanosis, or edema. . - Urinary Catheter Management Indwelling Urethral Catheter Cath placed during this visit: yes Reason for continuing: Gross Hematuria Insertion date: 03/09/18 Insertion time: 10:03 3-way Urethral Cath placed during this visit: yes, but has since been removed by the nurse Reason for continuing: Gross Hematuria Insertion date: 03/21/18 Removal date: 04/03/18 Removal time: 10:45 Assessment and Plan - Assessment (1) Acute kidney injury Code(s): N17.9 - Acute kidney failure, unspecified Status: Acute Plan: Patient with horse shoe kidney, and develop PARISH. Creatinine continue to improve slowly, now 3.2 HD is on hold. Non oliguric, has still hematuria. Has fever, now afebrile. Follow the cultures. Urology following. Watch for renal recovery. Continue to hold HD for now. (2) Hypertension Code(s): I10 - Essential (primary) hypertension Status: Acute Plan: continue to monitor. Better controlled. (3) Hydronephrosis of left kidney Code(s): N13.30 - Unspecified hydronephrosis Status: Chronic Onset Date: Unknown Plan: Cysto with stent placement. (4) Anemia Code(s): D64.9 - Anemia, unspecified Status: Acute Plan: HGB at stable Transfuse for HGB less than 7.0 Epogen with dialysis Labs in AM
[2018-04-04] MEDS: Sod Chloride 0.9% Inj 1,000 ML IV.CONT SCH ×2 (06:30→13:03)
[2018-04-04] MEDS: Senna/Docusate Sodium 8.6/50 MG Tablet PO SCH ×2 (10:20→20:30)
[2018-04-04] MEDS: Metoprolol Tartrate 25 MG Tablet PO SCH ×2 (10:20→20:31)
[2018-04-04] MEDS: hydrALAZINE 50 MG Tablet PO SCH ×3 (10:21→17:51)
--- NOTE | 2018-04-04 12:04 | P.PNURO ---
Subjective Patient symptoms today: Pt seen and examined. Feeling better. Urine with dark old blood. Creatinine continues to improve. Off HD for now. Objective Vital Signs: Vital Signs 04/03/18 16:00 04/03/18 20:00 04/04/18 00:00 Temperature 98.8 F 97.7 F 97.7 F Pulse Rate 98 H 85 92 H Respiratory Rate 20 16 16 Blood Pressure 117/81 126/78 136/89 Pulse Oximetry 98 95 96 04/04/18 04:00 04/04/18 04:35 04/04/18 08:00 Temperature 99.2 F 98.2 F Pulse Rate 98 H 95 H 91 H Respiratory Rate 16 18 Blood Pressure 128/80 128/88 Pulse Oximetry 96 97 Intake & Output 04/03/18 04/04/18 04/04/18 18:59 06:59 18:59 Intake Total 1010 / 1010 1388 / 1388 Output Total 1075 / 1075 800 / 800 Balance -65 / -65 588 / 588 Weight 59 kg Intake: IV 350 / 350 1108 / 1108 NS Inj 1,000 ML @ 84 mls/hr IV. 1000 / 1000 CONT .[id number] [facility] Rx#:[id number] Maxipime Inj 500 MG In NS Inj 100 / 100 100 ML @ 200 mls/hr IV.SIG Q24H [facility] Rx#:[id number] Magnesium Sulfate Inj 4 GM In 108 / 108 D5W Inj 100 ML @ 25 mls/hr IV. SIG ONCE ONE Rx#:[id number] Vancomycin Inj 1,000 MG In NS 250 / 250 Inj 250 ML @ 250 mls/hr IV.SIG ONCE ONE Rx#:[id number] Oral 660 / 660 280 / 280 Output: Urine 1075 / 1075 800 / 800 Other: # Voids 1 Date of Last Bowel Movement 04/02/18 # Bowel Movements 1 Result Diagrams: 04/03/18 06:58 04/03/18 06:58 Medications and IVs: Active Medications Generic Name Dose Route Start Last Admin Trade Name Freq PRN Reason Stop Dose Admin Acetaminophen 650 mg 03/20/18 07:59 Tylenol PO Q4H PRN SEE LABEL COMMENTS Acetaminophen 650 mg 03/07/18 23:05 04/03/18 10:35 Tylenol PO 650 mg Q4H PRN Administration Temp > 100.4 Belladonna Alkaloids/Opium 60 mg 03/10/18 15:43 04/03/18 07:35 B & O Supp RECTAL 60 mg Q6HR PRN Administration BLADDER SPASM Diphenhydramine HCl 25 mg 03/20/18 07:59 Benadryl PO Q4H PRN SEE LABEL COMMENTS Diphenhydramine HCl 25 mg 03/17/18 11:03 03/22/18 12:53 Benadryl PO 25 mg UNSCH PRN Administration SEE LABEL COMMENTS Epoetin Brandt 6,000 unit 03/17/18 11:03 03/28/18 15:04 Epogen Inj IV.PUSH 6,000 unit UNSCH PRN Administration SEE LABEL COMMENTS Furosemide 40 mg 03/15/18 09:00 03/18/18 09:53 Lasix Inj IV.PUSH Not Given BID@0900,1800 [facility] Gelatin 1 foam 03/17/18 11:03 Gelfoam 12 Mm/7 Mm Topical TOPICAL PRN PRN help stop bleeding from site Gentamicin Sulfate 20 mg 03/17/18 11:03 03/28/18 15:04 Gentamicin Inj OTHER 20 mg WITH DIALYSIS PRN Administration Dwell Gentamycin Lock Hydralazine HCl 50 mg 03/24/18 14:16 04/04/18 10:21 Apresoline PO 50 mg TID [facility] Administration Hydralazine HCl 10 mg 03/17/18 18:44 03/17/18 19:59 Apresoline Inj IV.PUSH 10 mg Q30M PRN Administration SBP>180, DBP>110 Hydromorphone HCl 0.5 mg 03/18/18 10:15 03/31/18 09:53 Dilaudid Pf Inj IV.PUSH 0.5 mg Q4H PRN Administration BREAKTHROUGH PAIN Sodium Chloride 1,000 mls @ 84 mls/hr 03/31/18 16:45 04/04/18 06:30 Ns Inj IV.CONT 84 mls/hr .[id number] [facility] Administration Cefepime HCl 500 mg/ Sodium 100 mls @ 200 mls/hr 04/03/18 11:00 04/03/18 17: 29 Chloride IV.SIG Infused Q24H [facility] Infusion Albumin Human 100 mls @ 60 mls/hr 03/17/18 11:03 Flexbumin 25% Inj IV.SIG WITH DIALYSIS PRN hypotension / volume replace Sodium Chloride 1,000 mls @ 0 mls/hr 03/17/18 11:03 Ns Inj OTHER .Q0M PRN for prime and rinse back As Directed Sodium Chloride 1,000 mls @ 200 mls/hr 03/17/18 11:03 Ns Inj OTHER .Q5H PRN for dialyzer flush PRN Sodium Chloride 1,000 mls @ 0 mls/hr 03/17/18 11:03 Ns Inj IV.CONT .Q0M PRN hypotension / volume replace As Directed Mannitol 12.5 gm 03/17/18 11:03 Mannitol Inj IV.PUSH UNSCH PRN hypotension / volume replace Megestrol Acetate 40 mg 03/28/18 13:45 04/04/18 10:21 Megace PO 40 mg DAILY [facility] Administration Metoclopramide HCl 2.5 mg 04/01/18 22:00 04/04/18 06:30 Reglan Inj IV.PUSH 2.5 mg Q8HR [facility] Administration Protocol Metoprolol Tartrate 12.5 mg 03/11/18 09:00 04/04/18 10:20 Lopressor PO 12.5 mg BID [facility] Administration Miscellaneous 1 each 03/11/18 10:00 03/22/18 08:00 Pill Splitter OTHER 1 each UNSCH [facility] Administration Naloxone HCl 0.4 mg 03/17/18 16:50 Narcan Inj IV.PUSH UNSCH PRN SEE LABEL COMMENTS Nitroglycerin 0.4 mg 03/17/18 11:03 Nitrostat Sl SL Q5M PRN CHEST PAIN Ondansetron HCl 4 mg 03/07/18 23:05 04/03/18 10:36 Zofran Inj IV.PUSH 4 mg Q6H PRN Administration NAUSEA OR VOMITING Oxybutynin Chloride 5 mg 03/17/18 21:00 04/04/18 10:21 Ditropan PO 5 mg BID [facility] Administration Oxycodone HCl 5 mg 03/18/18 10:16 04/03/18 10:35 Roxicodone PO 5 mg Q4H PRN Administration Acute Pain 1-10 Pantoprazole Sodium 40 mg 03/13/18 15:45 04/04/18 10:21 Protonix PO 40 mg DAILY [facility] Administration Polyethylene Glycol 17 gm 03/09/18 14:24 03/09/18 21:14 Miralax PO 17 gm DAILY PRN Administration Moderate-severe constipation Prochlorperazine Edisylate 5 mg 03/26/18 17:27 04/03/18 14:01 Compazine Inj IV.PUSH 5 mg Q8H PRN Administration SEVERE NAUSEA Senna/Docusate Sodium 1 tab 03/09/18 21:00 04/04/18 10:20 Allyssa-Colace PO 1 tab BID [facility] Administration Sodium Chloride 2 ml 03/08/18 09:00 04/04/18 10:22 Ns Flush IV.FLUSH 2 ml BID [facility] Administration Sodium Chloride 2 ml 03/07/18 23:05 03/20/18 21:44 Ns Flush IV.FLUSH 2 ml PRN PRN Administration FLUSH AFTER USING IV ACCESS Sodium Chloride 5 ml 03/17/18 11:03 Ns Flush IV.FLUSH PRN PRN flush each lumen during HD Objective Remarks: CV: sinus tach Abd:soft, mild distension; no rebound Price: old dark blood Ext: neg C/C/E 03/10 CV: sinus tach Abd:soft,less tenderness and distension Price: blood tinged PCNT: bloody 03/10 16:00: SP pains. Bladder not palpable. No SP tenderness. Abd: now non tender LLQ. Bloody urine via nephrostomy, no clots. Bloody urine via price catheter, no clots. 03/11: Scant urine output via Nephrostomy tube. It may not be draining, will wait and see. Fairly good urine output via price catheter. Urine dark blood tinged, no clots. BP varies high to normal, Pulse varies, temp 99. 03/12: See "Subjective" for the Objective. Suspect Vancomycin toxicity causing deterioration in kidney function and decreased urine output. N tube draining dark burgundy urine. PLAN: Dr. Little following the labs. N tube irrigation by IR if needed. 03/13 Abd:soft,nt,nd Left PNCT with blood Price: hematuria 03/14 Abd:soft,nt,nd Left PCNT: bloody Price: blood tinged 03/15 Abd:soft,nt,nd Left PCNT: bloody Price: blood tinged 03/16 Abd:soft,nt,nd Left PCNT: bloody Price: blood tinged 03/17 Abd:soft,nt,nd Left PCNT: bloody Price: blood tinged 03/20 Abd:soft,nt,nd Left PCNT: bloody Price: blood tinged 03/22 Abd:soft,nt,nd Left PCNT: blood tinged Price: clear on slow CBI 03/23 Abd:soft,nt,nd Price: urine clearing on CBI Left PCNT: urine dark; bag leaking 03/24 Abd:soft,nt,nd Price: urine clearing on CBI Left PCNT: urine dark; bag leaking 03/27 Abd:soft,nt,nd Price: urine clearing on CBI Left PCNT: out; dressing applied 03/28 Abd:soft,nt,nd Price: Dark bloody urine; no clots noted 03/29 Abd:soft,nt,nd Price: Dark bloody urine; no clots noted 04/03 Abd:soft,nt,nd Price: bloody urine noted. No clots. 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 Back up plan is to try to place a urinary stent cystoscopically in the OR. However, there is a great possibility that the presumed UPJ stenosis will prevent passage of guide wires and stent. 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 Discussed with Dr. Little. 03/11: N tube may or may not be draining. Sepsis improving. Still having bladder spasms, receiving Morphine. PLAN: Continue same. 03/12 See "Subjective", "Objective". 03/13 37 y.o male with sepsis and h/o horseshoe kidney s/p PCNT placement with hematuria Continue supportive measures for now Transfuse PRBC's today if repeat Hgb is below 8 Monitor u/o; avoid nephrotoxins Will follow. 03/14 37 y.o male with sepsis and horseshoe kidney s/p PCNT with hematuria and ARF Hgb stablized at 8.3 this AM. Creatinine rising to 5.7; u/o dropping Await Nephrology input Monitor u/o Continue conservative measures for now. 03/15 37 y.o male with sepsis and horseshoe kidney s/p PCNT with hematuria and worsening ARF. Creatinine up to 7.2 up from 5.7. Hgb down to 7.8. Will transfuse 1 unit PRBC's. Await Nephrology input Monitor u/o. 03/16 37 y.o male with sepsis and horseshoe kidney s/p PCNT with hematuria and worsening ARF probably due to ATN Continue conservative management from standpoint. No evidence of active bleeding. Will follow. 03/17 37 y.o male with sepsis s/p PCNT with hematuria and ARF Maintain price catheter- urine is clearing and less bloody Continue conservative measures. 03/20 37 y.o male with sepsis s/p PCNT with hematuria and ARF Transfuse [address] scan today Hold Heparin with dialysis. 03/22 37 y.o male s/p cysto with b/l JJ stent insertion with clot evacuation Maintain slow CBI Follow creatinine. Large amount of clot in left collecting system s/p PCNT Continue dialysis for now. Hold heparin with dialysis. Once urine clears will remove PCNT. 03/23 37 y.o male s/p cysto with b/l JJ stent insertion with clot evacuation Maintain slow CBI Continue conservative measures for now Follow labs. B&O suppository for bladder spasm. 03/24 37 y.o male with ARF s/p left PCNT s/p cysto with b/l JJ stent insertion s/p HD yesterday with 1.5 L removed Continue price and PNCT drainage 03/27 37 y.o male with ARF s/p left PCNT s/p cysto with b/l JJ stent insertion. Left PCNT fell out Will leave left PCNT out for now as he has JJ stents in place Ween CBI to off. Will obtain CT scan to evaluate resolution of left renal hematoma. 03/28 37 y.o male with ARF s/p left PCNT s/p cysto with b/l JJ stent insertion. Left PCNT fell out CT scan revealed persistent left renal hematoma s/p PCNT; JJ stents in place Follow Creatinine; HD per renal Continue conservative measures. 03/29 37 y.o male with ARF s/p left PCNT s/p cysto with b/l JJ stent insertion. Left PCNT fell out Follow Creatinine; HD per renal Continue conservative measures. 04/03 37 y.o male with ARF s/p left PCNT s/p cysto with b/l JJ stent insertion. Left PCNT fell out Follow Creatinine; Recommend void trial. Continue conservative measures. 04/04 37 y.o male with ARF s/p left PCNT s/p cysto with b/l JJ stent insertion. Left PCNT fell out Creatinine at 3.2. Price out and voiding. Record u/o. Continue conservative measures.
[2018-04-04] MEDS: Cefepime Inj 500 MG in Sodium Chlor 0.9% Inj 100 ML IV.SIG SCH (13:02)
--- NOTE | 2018-04-04 16:20 | P.PNIM ---
Subjective Interval history: Patient sitting in chair. No acute distress. He is ambulating around the unit. No other complaints from him. Physical Exam Vital signs: Vital Signs 04/03/18 20:00 04/04/18 00:00 04/04/18 04:00 Temperature 97.7 F 97.7 F Pulse Rate 85 92 H 98 H Respiratory Rate 16 16 Blood Pressure 126/78 136/89 Pulse Oximetry 95 96 04/04/18 04:35 04/04/18 08:00 04/04/18 12:00 Temperature 99.2 F 98.2 F 98.6 F Pulse Rate 95 H 91 H 82 Respiratory Rate 16 18 21 Blood Pressure 128/80 128/88 138/85 Pulse Oximetry 96 97 99 Intake & Output 04/03/18 04/04/18 04/04/18 18:59 06:59 18:59 Intake Total 1010 / 1010 1388 / 1388 1100 / 1100 Output Total 1075 / 1075 800 / 800 Balance -65 / -65 588 / 588 1100 / 1100 Weight 59 kg Intake: IV 350 / 350 1108 / 1108 1100 / 1100 NS Inj 1,000 ML @ 84 mls/hr IV. 1000 / 1000 1000 / 1000 CONT .[id number] [facility] Rx#:[id number] Maxipime Inj 500 MG In NS Inj 100 / 100 100 / 100 100 ML @ 200 mls/hr IV.SIG Q24H [facility] Rx#:[id number] Magnesium Sulfate Inj 4 GM In 108 / 108 D5W Inj 100 ML @ 25 mls/hr IV. SIG ONCE ONE Rx#:[id number] Vancomycin Inj 1,000 MG In NS 250 / 250 Inj 250 ML @ 250 mls/hr IV.SIG ONCE ONE Rx#:[id number] Oral 660 / 660 280 / 280 Output: Urine 1075 / 1075 800 / 800 Other: # Voids 1 Date of Last Bowel Movement 04/02/18 # Bowel Movements 1 Narrative: Patient sitting down in chair alert and oriented S1S2 CTA b/l Left sided nephrostomy tube with bloody urine in bag no edema of the exts no focal neuro deficits Urinary Catheter Management Indwelling Urethral Catheter: Cath placed during this visit: yes Reason for continuing: Gross Hematuria Insertion date: 03/09/18 Insertion time: 10:03 3-way Urethral: Cath placed during this visit: yes, but has since been removed by the nurse Reason for continuing: Gross Hematuria Insertion date: 03/21/18 Removal date: 04/03/18 Removal time: 10:45 Results Labs CBC & Chem 7: 04/05/18 07:35 04/05/18 07:35 Labs: Microbiology 04/03/18 14:43 Clean Catch Urine Urine Culture - Preliminary gram negative rods 04/03/18 01:10 Catheterized Urine Urine Culture - Preliminary gram negative rods 04/03/18 01:23 Blood - Peripheral Aerobic Blood Culture - Preliminary No growth in 1 day 04/03/18 01:23 Blood - Peripheral Anaerobic Blood Culture - Preliminary No growth in 1 day 04/03/18 01:15 Blood - Peripheral Aerobic Blood Culture - Preliminary No growth in 1 day 04/03/18 01:15 Blood - Peripheral Anaerobic Blood Culture - Preliminary No growth in 1 day Procedures Procedures: 03/08percutaneous nephrostomy in the left kidney 03/16 upper endoscopy 03/17 right IJ Vas-Cath 03/21 Cystoscopy with clot retention with bilateral retrograde studies, right ureteral dilatation, bilateral double-J stent insertio Assessment and Plan (1) Acute kidney injury: Code(s): N17.9 - Acute kidney failure, unspecified Status: Acute (2) Hypertension: Code(s): I10 - Essential (primary) hypertension Status: Acute (3) Hydronephrosis of left kidney: Code(s): N13.30 - Unspecified hydronephrosis Status: Chronic Onset Date: Unknown (4) Anemia: Code(s): D64.9 - Anemia, unspecified Status: Acute Plan This patient is a 37 y/o male with abd pain and hematuria who was found to be septic due to pyelonephritis with left horseshoe kidney and severe hydronephrosis and upj stenosis. He was admitted and evaluated by urology who set the patient up for percutaneous nephrostomy tube by IR on 03/08. Patient continued to have gross hematuria and required 2 units prbc on 03/08 and again on 03/11. Patient also had worsening renal failure and is being followed by nephrology. 04/04/18 Patient examined, labs and vitals reviewed. Patient without fevers overnight. Urine cx growing gram neg rods, will follow up final cx. Continue Cefepime Nephrology following the patient. Holding HD for now. I will follow up with nephrology regarding further HD. Cr improved to around 3. Patient will need clearance from Nephrology prior to discharge. Hgb stable. follow up am labs. Still hematuria from left nephrostomy tube. Urology following. Once clear from nephrology and Urology pt will be discharged. 1. Septic shock with hypotension and Lactic acidosis 2/2 pyelonephritis. Resolved. Shock resolved, lactate was elevated at 6.9 initially. S/p tx with zosyn. Blood cxs negative, urine cx negative. 2. Severe hydronephrosis with upj obstruction with left horseshoe kidney s/p percutaneous nephrostomy tube placement 03/[address] scan abd/pelvis shows significant hemorrhage inside the left kidney. 03/21 status post cystoscope with stenting by urology. Urology following the patient, recommending conservative management for now. Urology is recommending conservative management for now. Hgb is stable 10.4 yesterday, nephrostomy tube shows bloody urine. F/u am labs. Patient will need clearance from Urology prior to discharge. 3. PARISH likely due to ATN, vancomycin, sepsis, and previous obstruction Patient is having urine output HD will be done again today as per Nephrology note. Continue to follow with Nephrology recs. Cr 4.2 F/u am labs Avoid nephrotoxic agents. Patient will need clearance from nephrology prior to discharge. 5. Dysphagia normal barium swallow, Continue Protonix EGD 03/16 showed esophageal stricture status post dilatation biopsy pending now tolerating solid food 6. Hypertension history controlled, continue hydralazine metoprolol Scds for dvt prophylaxis, no pharmacotherapy given current hemorrhage. Discharge planning: Patient will need clearance from Nephrology and Urology prior to discharge. Progress Note: Quality VTE Deep Vein Thrombosis/Pulmonary Embolism Present on Admission: No _ (1) Anemia Qualifiers: Anemia type: Bone marrow failure anemia type: Chronic kidney disease stage : Folate deficiency anemia type: Hemolytic anemia type: Iron deficiency anemia type: Other causes of anemia: Vitamin B12 deficiency anemia type: (2) Hypertension Qualifiers: Hypertension type:
--- NOTE | 2018-04-04 16:21 | P.PNNP ---
Subjective Interval history: Seen in AM with family at bedside. No shortness of breath, nausea, or vomiting. HD on hold. <Wandy Pathak - Last Filed: 04/04/18 16:16> Physical Exam Vital signs: Vital Signs 04/03/18 20:00 04/04/18 00:00 04/04/18 04:00 Temperature 97.7 F 97.7 F Pulse Rate 85 92 H 98 H Respiratory Rate 16 16 Blood Pressure 126/78 136/89 Pulse Oximetry 95 96 04/04/18 04:35 04/04/18 08:00 04/04/18 12:00 Temperature 99.2 F 98.2 F 98.6 F Pulse Rate 95 H 91 H 82 Respiratory Rate 16 18 21 Blood Pressure 128/80 128/88 138/85 Pulse Oximetry 96 97 99 Intake & Output 04/03/18 04/04/18 04/04/18 18:59 06:59 18:59 Intake Total 1010 / 1010 1388 / 1388 1100 / 1100 Output Total 1075 / 1075 800 / 800 Balance -65 / -65 588 / 588 1100 / 1100 Weight 59 kg Intake: IV 350 / 350 1108 / 1108 1100 / 1100 NS Inj 1,000 ML @ 84 mls/hr IV. 1000 / 1000 1000 / 1000 CONT .[id number] [facility] Rx#:[id number] Maxipime Inj 500 MG In NS Inj 100 / 100 100 / 100 100 ML @ 200 mls/hr IV.SIG Q24H [facility] Rx#:[id number] Magnesium Sulfate Inj 4 GM In 108 / 108 D5W Inj 100 ML @ 25 mls/hr IV. SIG ONCE ONE Rx#:[id number] Vancomycin Inj 1,000 MG In NS 250 / 250 Inj 250 ML @ 250 mls/hr IV.SIG ONCE ONE Rx#:[id number] Oral 660 / 660 280 / 280 Output: Urine 1075 / 1075 800 / 800 Other: # Voids 1 Date of Last Bowel Movement 04/02/18 # Bowel Movements 1 Narrative: GENERAL: Alert and oriented. Thin SKIN: Warm and dry. NECK: Supple, trachea midline. No JVD CARDIOVASCULAR: Tachycardia. Regular rate and rhythm without murmurs, gallops, or rubs. right IJ vas cath. RESPIRATORY: Breath sounds equal bilaterally. No accessory muscle use. GASTROINTESTINAL: Abdomen soft, non-tender, nondistended. +BS GI: Indwelling price catheter with red colored urine. MUSCULOSKELETAL: No cyanosis, or edema. . - Urinary Catheter Management Indwelling Urethral Catheter Cath placed during this visit: yes Reason for continuing: Gross Hematuria Insertion date: 03/09/18 Insertion time: 10:03 3-way Urethral Cath placed during this visit: yes, but has since been removed by the nurse Reason for continuing: Gross Hematuria Insertion date: 03/21/18 Removal date: 04/03/18 Removal time: 10:45 <Wandy Pathak - Last Filed: 04/04/18 16:16> Vital signs: Vital Signs 04/04/18 00:00 04/04/18 04:00 04/04/18 04:35 Temperature 97.7 F 99.2 F Pulse Rate 92 H 98 H 95 H Respiratory Rate 16 16 Blood Pressure 136/89 128/80 Pulse Oximetry 96 96 04/04/18 08:00 04/04/18 12:00 04/04/18 16:00 Temperature 98.2 F 98.6 F 97.9 F Pulse Rate 91 H 82 76 Respiratory Rate 18 21 17 Blood Pressure 128/88 138/85 130/72 Pulse Oximetry 97 99 98 04/04/18 20:00 Temperature 98.2 F Pulse Rate 96 H Respiratory Rate 16 Blood Pressure 117/65 Pulse Oximetry 96 Intake & Output 04/04/18 04/04/18 04/05/18 06:59 18:59 06:59 Intake Total 1388 / 1388 1100 / 1100 Output Total 800 / 800 Balance 588 / 588 1100 / 1100 Weight 59 kg Intake: IV 1108 / 1108 1100 / 1100 NS Inj 1,000 ML @ 84 mls/hr IV. 1000 / 1000 1000 / 1000 CONT .[id number] [facility] Rx#:[id number] Maxipime Inj 500 MG In NS Inj 100 / 100 100 ML @ 200 mls/hr IV.SIG Q24H [facility] Rx#:[id number] Magnesium Sulfate Inj 4 GM In 108 / 108 D5W Inj 100 ML @ 25 mls/hr IV. SIG ONCE ONE Rx#:[id number] Oral 280 / 280 Output: Urine 800 / 800 - Urinary Catheter Management Indwelling Urethral Catheter Cath placed during this visit: no 3-way Urethral Cath placed during this visit: no <Jorge Luis Scott - Last Filed: 04/04/18 22:27> Assessment and Plan - Assessment (1) Acute kidney injury Code(s): N17.9 - Acute kidney failure, unspecified Status: Acute Plan: Patient with horse shoe kidney, and develop PARISH. Post Left Nephrostomy and stent placement. Started HD on 03/17, vas cath 03/17.... HD on hold now. S/p cysto with stent placement Creatinine continue to improve slowly, HD is on hold. Non oliguric, has still hematuria. Avoid nephrotoxins including IV contrast and NSAIDS Continue to hold HD for now. Labs ordered for AM, if continues to improve vas cath can be removed. (2) Hypertension Code(s): I10 - Essential (primary) hypertension Status: Acute Plan: continue to monitor. Better controlled. (3) Hydronephrosis of left kidney Code(s): N13.30 - Unspecified hydronephrosis Status: Chronic Onset Date: Unknown Plan: Cysto with stent placement. (4) Anemia Code(s): D64.9 - Anemia, unspecified Status: Acute Plan: HGB at stable Transfuse for HGB less than 7.0 Epogen with dialysis Labs in AM <Wandy Pathak - Last Filed: 04/04/18 16:16> - Assessment (1) Acute kidney injury Code(s): N17.9 - Acute kidney failure, unspecified Status: Acute Plan: Patient seen and examined, agree with above. No new BMP. Remain afebrile, Price's removed. Follow the BMP in AM. (2) Hypertension Code(s): I10 - Essential (primary) hypertension Status: Acute (3) Hydronephrosis of left kidney Code(s): N13.30 - Unspecified hydronephrosis Status: Chronic Onset Date: Unknown (4) Anemia Code(s): D64.9 - Anemia, unspecified Status: Acute <Jorge Luis Scott - Last Filed: 04/04/18 22:27>
[2018-04-04] MEDS ORDERED: Acetaminophen 325 MG Tablet PO PRN (20:10)
[2018-04-05] MEDS: Sod Chloride 0.9% Inj 1,000 ML IV.CONT SCH ×2 (00:18→05:44)
[2018-04-05 08:08] LABS: Baso # (Auto) 0.1 th/mm3 (0.0-0.2); Baso % (Auto) 1.3 % (0.0-2.0); Eos # (Auto) 0.3 th/mm3 (0.0-0.4); Eos % (Auto) 3.8 % (0.0-4.0); Hematocrit 29.2 % (39.0-51.0); Hemoglobin 9.6 gm/dL (13.0-17.0); Lymph # (Auto) 1.2 th/mm3 (1.0-4.8); Mean Corpuscular HGB Conc 32.9 % (32.0-36.0); Mean Corpuscular Hemoglobin 29.3 pg (27.0-34.0); Mean Corpuscular Volume 89.1 fL (80.0-100.0); Mean Platelet Volume 9.3 fL (7.0-11.0); Mono # (Auto) 1.1 th/mm3 (0.0-0.9); Mono % (Auto) 12.8 % (0.0-8.0); Neut # (Auto) 5.7 th/mm3 (1.8-7.7); Neut % (Auto) 68.1 % (16.0-70.0); Platelet Count 179 th/mm3 (150-450); Red Blood Count 3.27 mil/mm3 (4.50-5.90); Red Cell Distribution Width 16.3 % (11.6-17.2); White Blood Count 8.3 th/mm3 (4.0-11.0)
[2018-04-05 08:38] LABS: Calcium 8.1 mg/dL (8.5-10.1); Carbon Dioxide 21.5 meq/L (21.0-32.0); Magnesium 1.8 mg/dL (1.5-2.5); Potassium 3.9 meq/L (3.5-5.1)
[2018-04-05] MEDS: Senna/Docusate Sodium 8.6/50 MG Tablet PO SCH ×2 (10:40→22:26)
[2018-04-05] MEDS: hydrALAZINE 50 MG Tablet PO SCH ×3 (10:40→18:21)
[2018-04-05] MEDS: Metoprolol Tartrate 25 MG Tablet PO SCH ×2 (10:41→22:25)
--- NOTE | 2018-04-05 11:09 | P.PNURO ---
Subjective Patient symptoms today: Pt seen and examined. Feels ok. Hematuria still present. Old blood. Objective Vital Signs: Vital Signs 04/04/18 12:00 04/04/18 16:00 04/04/18 20:00 Temperature 98.6 F 97.9 F 98.2 F Pulse Rate 82 76 96 H Respiratory Rate 21 17 16 Blood Pressure 138/85 130/72 117/65 Pulse Oximetry 99 98 96 04/05/18 00:00 04/05/18 04:37 04/05/18 08:00 Temperature 98.9 F 98.3 F 98.1 F Pulse Rate 107 H 87 77 Respiratory Rate 16 16 18 Blood Pressure 125/66 117/68 133/82 Pulse Oximetry 96 95 99 Intake & Output 04/04/18 04/05/18 04/05/18 18:59 06:59 18:59 Intake Total 1100 / 1100 2340 / 2340 Output Total 1100 / 1100 Balance 1100 / 1100 1240 / 1240 Weight 60 kg Intake: IV 1100 / 1100 1999 NS Inj 1,000 ML @ 84 mls/hr IV. 1000 / 1000 1999 CONT .[id number] [facility] Rx#:[id number] Maxipime Inj 500 MG In NS Inj 100 / 100 100 ML @ 200 mls/hr IV.SIG Q24H [facility] Rx#:[id number] Oral 340 / 340 Output: Urine 1100 / 1100 Result Diagrams: 04/05/18 07:35 04/05/18 07:35 Medications and IVs: Active Medications Generic Name Dose Route Start Last Admin Trade Name Freq PRN Reason Stop Dose Admin Acetaminophen 650 mg 03/20/18 07:59 04/04/18 20:30 Tylenol PO 650 mg Q4H PRN Administration SEE LABEL COMMENTS Acetaminophen 650 mg 04/04/18 20:10 Tylenol PO Q4H PRN fever or headache Belladonna Alkaloids/Opium 60 mg 03/10/18 15:43 04/03/18 07:35 B & O Supp RECTAL 60 mg Q6HR PRN Administration BLADDER SPASM Diphenhydramine HCl 25 mg 03/20/18 07:59 Benadryl PO Q4H PRN SEE LABEL COMMENTS Diphenhydramine HCl 25 mg 03/17/18 11:03 03/22/18 12:53 Benadryl PO 25 mg UNSCH PRN Administration SEE LABEL COMMENTS Epoetin Brandt 6,000 unit 03/17/18 11:03 03/28/18 15:04 Epogen Inj IV.PUSH 6,000 unit UNSCH PRN Administration SEE LABEL COMMENTS Furosemide 40 mg 03/15/18 09:00 03/18/18 09:53 Lasix Inj IV.PUSH Not Given BID@0900,1800 [facility] Gelatin 1 foam 03/17/18 11:03 Gelfoam 12 Mm/7 Mm Topical TOPICAL PRN PRN help stop bleeding from site Gentamicin Sulfate 20 mg 03/17/18 11:03 03/28/18 15:04 Gentamicin Inj OTHER 20 mg WITH DIALYSIS PRN Administration Dwell Gentamycin Lock Hydralazine HCl 50 mg 03/24/18 14:16 04/05/18 10:40 Apresoline PO 50 mg TID [facility] Administration Hydralazine HCl 10 mg 03/17/18 18:44 03/17/18 19:59 Apresoline Inj IV.PUSH 10 mg Q30M PRN Administration SBP>180, DBP>110 Hydromorphone HCl 0.5 mg 03/18/18 10:15 03/31/18 09:53 Dilaudid Pf Inj IV.PUSH 0.5 mg Q4H PRN Administration BREAKTHROUGH PAIN Cefepime HCl 500 mg/ Sodium 100 mls @ 200 mls/hr 04/03/18 11:00 04/04/18 15: 00 Chloride IV.SIG Infused Q24H [facility] Infusion Albumin Human 100 mls @ 60 mls/hr 03/17/18 11:03 Flexbumin 25% Inj IV.SIG WITH DIALYSIS PRN hypotension / volume replace Sodium Chloride 1,000 mls @ 0 mls/hr 03/17/18 11:03 Ns Inj OTHER .Q0M PRN for prime and rinse back As Directed Sodium Chloride 1,000 mls @ 200 mls/hr 03/17/18 11:03 Ns Inj OTHER .Q5H PRN for dialyzer flush PRN Sodium Chloride 1,000 mls @ 0 mls/hr 03/17/18 11:03 Ns Inj IV.CONT .Q0M PRN hypotension / volume replace As Directed Mannitol 12.5 gm 03/17/18 11:03 Mannitol Inj IV.PUSH UNSCH PRN hypotension / volume replace Megestrol Acetate 40 mg 03/28/18 13:45 04/05/18 10:41 Megace PO 40 mg DAILY [facility] Administration Metoclopramide HCl 2.5 mg 04/01/18 22:00 04/05/18 05:44 Reglan Inj IV.PUSH 2.5 mg Q8HR [facility] Administration Protocol Metoprolol Tartrate 12.5 mg 03/11/18 09:00 04/05/18 10:41 Lopressor PO 12.5 mg BID [facility] Administration Miscellaneous 1 each 03/11/18 10:00 03/22/18 08:00 Pill Splitter OTHER 1 each UNSCH [facility] Administration Naloxone HCl 0.4 mg 03/17/18 16:50 Narcan Inj IV.PUSH UNSCH PRN SEE LABEL COMMENTS Nitroglycerin 0.4 mg 03/17/18 11:03 Nitrostat Sl SL Q5M PRN CHEST PAIN Ondansetron HCl 4 mg 03/07/18 23:05 04/03/18 10:36 Zofran Inj IV.PUSH 4 mg Q6H PRN Administration NAUSEA OR VOMITING Oxybutynin Chloride 5 mg 03/17/18 21:00 04/05/18 10:40 Ditropan PO 5 mg BID [facility] Administration Oxycodone HCl 5 mg 03/18/18 10:16 04/05/18 00:18 Roxicodone PO 5 mg Q4H PRN Administration Acute Pain 1-10 Pantoprazole Sodium 40 mg 03/13/18 15:45 04/05/18 10:40 Protonix PO 40 mg DAILY [facility] Administration Polyethylene Glycol 17 gm 03/09/18 14:24 03/09/18 21:14 Miralax PO 17 gm DAILY PRN Administration Moderate-severe constipation Prochlorperazine Edisylate 5 mg 03/26/18 17:27 04/03/18 14:01 Compazine Inj IV.PUSH 5 mg Q8H PRN Administration SEVERE NAUSEA Senna/Docusate Sodium 1 tab 03/09/18 21:00 04/05/18 10:40 Allyssa-Colace PO 1 tab BID [facility] Administration Sodium Chloride 2 ml 03/08/18 09:00 04/05/18 10:43 Ns Flush IV.FLUSH Not Given BID [facility] Sodium Chloride 2 ml 03/07/18 23:05 03/20/18 21:44 Ns Flush IV.FLUSH 2 ml PRN PRN Administration FLUSH AFTER USING IV ACCESS Sodium Chloride 5 ml 03/17/18 11:03 Ns Flush IV.FLUSH PRN PRN flush each lumen during HD Objective Remarks: CV: sinus tach Abd:soft, mild distension; no rebound Price: old dark blood Ext: neg C/C/E 03/10 CV: sinus tach Abd:soft,less tenderness and distension Price: blood tinged PCNT: bloody 03/10 16:00: SP pains. Bladder not palpable. No SP tenderness. Abd: now non tender LLQ. Bloody urine via nephrostomy, no clots. Bloody urine via price catheter, no clots. 03/11: Scant urine output via Nephrostomy tube. It may not be draining, will wait and see. Fairly good urine output via price catheter. Urine dark blood tinged, no clots. BP varies high to normal, Pulse varies, temp 99. 03/12: See "Subjective" for the Objective. Suspect Vancomycin toxicity causing deterioration in kidney function and decreased urine output. N tube draining dark burgundy urine. PLAN: Dr. Little following the labs. N tube irrigation by IR if needed. 03/13 Abd:soft,nt,nd Left PNCT with blood Price: hematuria 03/14 Abd:soft,nt,nd Left PCNT: bloody Price: blood tinged 03/15 Abd:soft,nt,nd Left PCNT: bloody Price: blood tinged 03/16 Abd:soft,nt,nd Left PCNT: bloody Price: blood tinged 03/17 Abd:soft,nt,nd Left PCNT: bloody Price: blood tinged 03/20 Abd:soft,nt,nd Left PCNT: bloody Price: blood tinged 03/22 Abd:soft,nt,nd Left PCNT: blood tinged Price: clear on slow CBI 03/23 Abd:soft,nt,nd Price: urine clearing on CBI Left PCNT: urine dark; bag leaking 03/24 Abd:soft,nt,nd Price: urine clearing on CBI Left PCNT: urine dark; bag leaking 03/27 Abd:soft,nt,nd Price: urine clearing on CBI Left PCNT: out; dressing applied 03/28 Abd:soft,nt,nd Price: Dark bloody urine; no clots noted 03/29 Abd:soft,nt,nd Priec: Dark bloody urine; no clots noted 04/03 Abd:soft,nt,nd Price: bloody urine noted. No clots. 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 Back up plan is to try to place a urinary stent cystoscopically in the OR. However, there is a great possibility that the presumed UPJ stenosis will prevent passage of guide wires and stent. 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 Discussed with Dr. Little. 03/11: N tube may or may not be draining. Sepsis improving. Still having bladder spasms, receiving Morphine. PLAN: Continue same. 03/12 See "Subjective", "Objective". 03/13 37 y.o male with sepsis and h/o horseshoe kidney s/p PCNT placement with hematuria Continue supportive measures for now Transfuse PRBC's today if repeat Hgb is below 8 Monitor u/o; avoid nephrotoxins Will follow. 03/14 37 y.o male with sepsis and horseshoe kidney s/p PCNT with hematuria and ARF Hgb stablized at 8.3 this AM. Creatinine rising to 5.7; u/o dropping Await Nephrology input Monitor u/o Continue conservative measures for now. 03/15 37 y.o male with sepsis and horseshoe kidney s/p PCNT with hematuria and worsening ARF. Creatinine up to 7.2 up from 5.7. Hgb down to 7.8. Will transfuse 1 unit PRBC's. Await Nephrology input Monitor u/o. 03/16 37 y.o male with sepsis and horseshoe kidney s/p PCNT with hematuria and worsening ARF probably due to ATN Continue conservative management from standpoint. No evidence of active bleeding. Will follow. 03/17 37 y.o male with sepsis s/p PCNT with hematuria and ARF Maintain price catheter- urine is clearing and less bloody Continue conservative measures. 03/20 37 y.o male with sepsis s/p PCNT with hematuria and ARF Transfuse [address] scan today Hold Heparin with dialysis. 03/22 37 y.o male s/p cysto with b/l JJ stent insertion with clot evacuation Maintain slow CBI Follow creatinine. Large amount of clot in left collecting system s/p PCNT Continue dialysis for now. Hold heparin with dialysis. Once urine clears will remove PCNT. 03/23 37 y.o male s/p cysto with b/l JJ stent insertion with clot evacuation Maintain slow CBI Continue conservative measures for now Follow labs. B&O suppository for bladder spasm. 03/24 37 y.o male with ARF s/p left PCNT s/p cysto with b/l JJ stent insertion s/p HD yesterday with 1.5 L removed Continue price and PNCT drainage 03/27 37 y.o male with ARF s/p left PCNT s/p cysto with b/l JJ stent insertion. Left PCNT fell out Will leave left PCNT out for now as he has JJ stents in place Ween CBI to off. Will obtain CT scan to evaluate resolution of left renal hematoma. 03/28 37 y.o male with ARF s/p left PCNT s/p cysto with b/l JJ stent insertion. Left PCNT fell out CT scan revealed persistent left renal hematoma s/p PCNT; JJ stents in place Follow Creatinine; HD per renal Continue conservative measures. 03/29 37 y.o male with ARF s/p left PCNT s/p cysto with b/l JJ stent insertion. Left PCNT fell out Follow Creatinine; HD per renal Continue conservative measures. 04/03 37 y.o male with ARF s/p left PCNT s/p cysto with b/l JJ stent insertion. Left PCNT fell out Follow Creatinine; Recommend void trial. Continue conservative measures. 04/04 37 y.o male with ARF s/p left PCNT s/p cysto with b/l JJ stent insertion. Left PCNT fell out Creatinine at 3.2. Price out and voiding. Record u/o. Continue conservative measures. 04/05 37 y.o male with ARF s/p left PCNT s/p cysto with b/l JJ stent insertion. Left PCNT fell out Creatinine down to 2.3. Continues to improve clinically. Continue conservative measures.
[2018-04-05] MEDS: Cefepime Inj 500 MG in Sodium Chlor 0.9% Inj 100 ML IV.SIG SCH (11:29)
--- NOTE | 2018-04-05 13:41 | P.DIET ---
Nutritional Evaluation Type of nutrition evaluation: follow-up (Patient transferred from [facility]) Nutrition consult regarding: Diet Evaluation Nutrition screening: [facility] Screening comments: 03/12 [facility] Malnutrition/diet evaluation 03/14 [facility] malnutrition Subjective Subjective Comments: Ate 75% of bkfst and 25% of lunch today. Objective - Diagnosis Abdominal pain, hydronephrosis - Objective % IBW: 81 (IBW:166lbs) Body Weight Used for Calculations: Actual (59.3kg) Energy Needs - Lower Range (kCal/kg): 30 Energy Needs - Upper Range (kCal/kg): 35 Lower Limit kCal/kg (kCals): 1,779 Upper Limit kCal/kg (kCals): 2,076 Lower Limit Protein Factor (Grams per Kg): 1.2 Upper Limit Protein Factor (Grams per Kg): 1.5 Lower Protein Needs (Protein): 71 Upper Protein Needs (Protein): 90 Dietitian Reviewed in Medical Record: Current diet, Curent medications, Intake & Output, Labs, Medical history Diet Order: Renal, 2 gm Na Oral Diet Intake Amount: Poor <50% Objective Comments: PMH: asthma, seizures 03/16 panendoscopy 03/21 cystoscopy, R ureteral dilation, B stents, clot evacuation Assessment Assessment: Pt remains at high nutrition risk 2' to poor po intake and low wt for ht with a BMI of 19.0. He started hemodialysis on 03/18. Will continue to send Nepro qd for added nutrition; each 8 oz serving provides 425 kcals and [address] will monitor acceptance. Labs, wts and clinical course reviewed: no wt loss noted when compared to admission wt. CBW = 60. 0 kg Recommendations: Nepro qd Monitor acceptance Dietitian to Monitor: Lab values, Supplement acceptance, Intake & Output, Diet tolerance, Weight change, PO Intake, Medical course
--- NOTE | 2018-04-05 15:39 | P.PNIM ---
Subjective Interval history: Patient evaluated. He says he is feeling a little better today. He is happy that his kidney function is improving. Physical Exam Vital signs: Vital Signs 04/04/18 16:00 04/04/18 20:00 04/05/18 00:00 Temperature 97.9 F 98.2 F 98.9 F Pulse Rate 76 96 H 107 H Respiratory Rate 17 16 16 Blood Pressure 130/72 117/65 125/66 Pulse Oximetry 98 96 96 04/05/18 04:37 04/05/18 08:00 04/05/18 12:00 Temperature 98.3 F 98.1 F 98.3 F Pulse Rate 87 77 77 Respiratory Rate 16 18 18 Blood Pressure 117/68 133/82 124/83 Pulse Oximetry 95 99 97 04/05/18 15:00 Temperature Pulse Rate 67 Respiratory Rate Blood Pressure Pulse Oximetry Intake & Output 04/04/18 04/05/18 04/05/18 18:59 06:59 18:59 Intake Total 1100 / 1100 2340 / 2340 Output Total 1100 / 1100 Balance 1100 / 1100 1240 / 1240 Weight 60 kg Intake: IV 1100 / 1100 2000 / 1999 NS Inj 1,000 ML @ 84 mls/hr IV. 1000 / 1000 2000 / 2000 CONT .[id number] [facility] Rx#:[id number] Maxipime Inj 500 MG In NS Inj 100 / 100 100 ML @ 200 mls/hr IV.SIG Q24H [facility] Rx#:[id number] Oral 340 / 340 Output: Urine 1100 / 1100 Other: Date of Last Bowel Movement 04/02/18 Narrative: Patient sitting down in chair alert and oriented S1S2 CTA b/l no edema of the exts no focal neuro deficits Urinary Catheter Management Indwelling Urethral Catheter: Cath placed during this visit: yes Reason for continuing: Gross Hematuria Insertion date: 03/09/18 Insertion time: 10:03 3-way Urethral: Cath placed during this visit: yes, but has since been removed by the nurse Reason for continuing: Gross Hematuria Insertion date: 03/21/18 Removal date: 04/03/18 Removal time: 10:45 Results Labs CBC & Chem 7: 04/06/18 06:43 04/06/18 06:43 Labs: Microbiology 04/03/18 01:23 Blood - Peripheral Aerobic Blood Culture - Preliminary No growth in 2 days 04/03/18 01:23 Blood - Peripheral Anaerobic Blood Culture - Preliminary No growth in 2 days 04/03/18 01:15 Blood - Peripheral Aerobic Blood Culture - Preliminary No growth in 2 days 04/03/18 01:15 Blood - Peripheral Anaerobic Blood Culture - Preliminary No growth in 2 days 04/03/18 14:43 Clean Catch Urine Urine Culture - Final Pseudomonas aeruginosa 04/03/18 01:10 Catheterized Urine Urine Culture - Final Pseudomonas aeruginosa Procedures Procedures: 03/08percutaneous nephrostomy in the left kidney 03/16 upper endoscopy 03/17 right IJ Vas-Cath 03/21 Cystoscopy with clot retention with bilateral retrograde studies, right ureteral dilatation, bilateral double-J stent insertio Assessment and Plan (1) Acute kidney injury: Code(s): N17.9 - Acute kidney failure, unspecified Status: Acute (2) Hypertension: Code(s): I10 - Essential (primary) hypertension Status: Acute (3) Hydronephrosis of left kidney: Code(s): N13.30 - Unspecified hydronephrosis Status: Chronic Onset Date: Unknown (4) Anemia: Code(s): D64.9 - Anemia, unspecified Status: Acute Plan This patient is a 37 y/o male with abd pain and hematuria who was found to be septic due to pyelonephritis with left horseshoe kidney and severe hydronephrosis and upj stenosis. He was admitted and evaluated by urology who set the patient up for percutaneous nephrostomy tube by IR on 03/08. Patient continued to have gross hematuria and required 2 units prbc on 03/08 and again on 03/11. Patient also had worsening renal failure and is being followed by nephrology. 04/05/18 Patient examined, labs and vitals reviewed. Patient without fevers overnight. Urine cx growing pseudomonas Continue Cefepime Nephrology following the patient. Holding HD for now. I will follow up with nephrology regarding further HD. Cr improved to around 2 today. Once nephrology is ok with removing the patient's trialysis catheter we will discharge the patient. Patient will need clearance from Nephrology prior to discharge. Hgb stable. follow up am labs. Still hematuria from left nephrostomy tube. Urology following. Once clear from nephrology and Urology pt will be discharged. F/u am labs 1. Septic shock with hypotension and Lactic acidosis 2/2 pyelonephritis. Resolved. Shock resolved, lactate was elevated at 6.9 initially. S/p tx with zosyn. Blood cxs negative, urine cx negative. 2. Severe hydronephrosis with upj obstruction with left horseshoe kidney s/p percutaneous nephrostomy tube placement 03/[address] scan abd/pelvis shows significant hemorrhage inside the left kidney. 03/21 status post cystoscope with stenting by urology. Urology following the patient, recommending conservative management for now. Urology is recommending conservative management for now. Hgb is stable 10.4 yesterday, nephrostomy tube shows bloody urine. F/u am labs. Patient will need clearance from Urology prior to discharge. 3. PARISH likely due to ATN, vancomycin, sepsis, and previous obstruction Patient is having urine output HD will be done again today as per Nephrology note. Continue to follow with Nephrology recs. Cr 4.2 F/u am labs Avoid nephrotoxic agents. Patient will need clearance from nephrology prior to discharge. 5. Dysphagia normal barium swallow, Continue Protonix EGD 03/16 showed esophageal stricture status post dilatation biopsy pending now tolerating solid food 6. Hypertension history controlled, continue hydralazine metoprolol Scds for dvt prophylaxis, no pharmacotherapy given current hemorrhage. Discharge planning: Patient will need clearance from Nephrology and Urology prior to discharge. Progress Note: Quality VTE Deep Vein Thrombosis/Pulmonary Embolism Present on Admission: No _ (1) Anemia Qualifiers: Anemia type: Bone marrow failure anemia type: Chronic kidney disease stage : Folate deficiency anemia type: Hemolytic anemia type: Iron deficiency anemia type: Other causes of anemia: Vitamin B12 deficiency anemia type: (2) Hypertension Qualifiers: Hypertension type:
--- NOTE | 2018-04-05 17:32 | P.PNNP ---
Subjective Interval history: Seen in AM. No acute events overnight. Creatinine has improved at 2.30 today. <Wandy Pathak - Last Filed: 04/05/18 17:28> Physical Exam Vital signs: Vital Signs 04/04/18 20:00 04/05/18 00:00 04/05/18 04:37 Temperature 98.2 F 98.9 F 98.3 F Pulse Rate 96 H 107 H 87 Respiratory Rate 16 16 16 Blood Pressure 117/65 125/66 117/68 Pulse Oximetry 96 96 95 04/05/18 08:00 04/05/18 12:00 04/05/18 15:00 Temperature 98.1 F 98.3 F Pulse Rate 77 77 67 Respiratory Rate 18 18 Blood Pressure 133/82 124/83 Pulse Oximetry 99 97 04/05/18 16:00 Temperature 99.3 F Pulse Rate 75 Respiratory Rate 18 Blood Pressure 117/75 Pulse Oximetry 98 Intake & Output 04/04/18 04/05/18 04/05/18 18:59 06:59 18:59 Intake Total 1100 / 1100 2340 / 2340 Output Total 1100 / 1100 Balance 1100 / 1100 1240 / 1240 Weight 60 kg Intake: IV 1100 / 1100 1999 / 1999 NS Inj 1,000 ML @ 84 mls/hr IV. 1000 / 1000 1999 / 1999 CONT .[id number] [facility] Rx#:[id number] Maxipime Inj 500 MG In NS Inj 100 / 100 100 ML @ 200 mls/hr IV.SIG Q24H [facility] Rx#:[id number] Oral 340 / 340 Output: Urine 1100 / 1100 Other: Date of Last Bowel Movement 04/02/18 Narrative: GENERAL: Alert and oriented. Thin SKIN: Warm and dry. NECK: Supple, trachea midline. No JVD CARDIOVASCULAR: Tachycardia. Regular rate and rhythm without murmurs, gallops, or rubs. right IJ vas cath. RESPIRATORY: Breath sounds equal bilaterally. No accessory muscle use. GASTROINTESTINAL: Abdomen soft, non-tender, nondistended. +BS GI: Indwelling price catheter with red colored urine. MUSCULOSKELETAL: No cyanosis, or edema. . - Urinary Catheter Management Indwelling Urethral Catheter Cath placed during this visit: yes Reason for continuing: Gross Hematuria Insertion date: 03/09/18 Insertion time: 10:03 3-way Urethral Cath placed during this visit: yes, but has since been removed by the nurse Reason for continuing: Gross Hematuria Insertion date: 03/21/18 Removal date: 04/03/18 Removal time: 10:45 <Wandy Pathak - Last Filed: 04/05/18 17:28> Vital signs: Vital Signs 04/05/18 00:00 04/05/18 04:37 04/05/18 08:00 Temperature 98.9 F 98.3 F 98.1 F Pulse Rate 107 H 87 77 Respiratory Rate 16 16 18 Blood Pressure 125/66 117/68 133/82 Pulse Oximetry 96 95 99 04/05/18 12:00 04/05/18 15:00 04/05/18 16:00 Temperature 98.3 F 99.3 F Pulse Rate 77 67 75 Respiratory Rate 18 18 Blood Pressure 124/83 117/75 Pulse Oximetry 97 98 04/05/18 20:00 Temperature 98.1 F Pulse Rate 80 Respiratory Rate 19 Blood Pressure 136/75 Pulse Oximetry 98 Intake & Output 04/05/18 04/05/18 04/06/18 06:59 18:59 06:59 Intake Total 2340 / 2340 720 / 720 Output Total 1100 / 1100 1500 / 1500 Balance 1240 / 1240 -780 / -780 Weight 60 kg Intake: IV 1999 NS Inj 1,000 ML @ 84 mls/hr IV. 1999 CONT .[id number] [facility] Rx#:[id number] Oral 340 / 340 720 / 720 Output: Urine 1100 / 1100 1500 / 1500 Other: Date of Last Bowel Movement 04/02/18 - Urinary Catheter Management Indwelling Urethral Catheter Cath placed during this visit: no 3-way Urethral Cath placed during this visit: no <Jorge Luis Scott - Last Filed: 04/05/18 22:26> Assessment and Plan - Assessment (1) Acute kidney injury Code(s): N17.9 - Acute kidney failure, unspecified Status: Acute Plan: Patient with horse shoe kidney, and develop PARISH. Post Left Nephrostomy and stent placement. Started HD on 03/17, vas cath 03/17.... HD on hold now. S/p cysto with stent placement Creatinine continue to improve at 2.3 Non oliguric Avoid nephrotoxins including IV contrast and NSAIDS With improvement in creatinine will discontinue IVF and vas cath Per nephrology patient is cleared for discharge will need follow up outpatient with nephrology. (2) Hypertension Code(s): I10 - Essential (primary) hypertension Status: Acute Plan: continue to monitor. Better controlled. (3) Hydronephrosis of left kidney Code(s): N13.30 - Unspecified hydronephrosis Status: Chronic Onset Date: Unknown Plan: Cysto with stent placement. (4) Anemia Code(s): D64.9 - Anemia, unspecified Status: Acute Plan: HGB at stable Transfuse for HGB less than 7.0 <Wandy Pathak - Last Filed: 04/05/18 17:28> - Assessment (1) Acute kidney injury Code(s): N17.9 - Acute kidney failure, unspecified Status: Acute Plan: Patient seen and examined, agree with above. Creatinine continue to improve, now 2.3. D/C Vascath, encourage oral fluids. (2) Hypertension Code(s): I10 - Essential (primary) hypertension Status: Acute (3) Hydronephrosis of left kidney Code(s): N13.30 - Unspecified hydronephrosis Status: Chronic Onset Date: Unknown (4) Anemia Code(s): D64.9 - Anemia, unspecified Status: Acute <Jorge Luis Scott - Last Filed: 04/05/18 22:26>
[2018-04-06 07:07] LABS: Hematocrit 28.9 % (39.0-51.0); Hemoglobin 9.6 gm/dL (13.0-17.0)
[2018-04-06 07:32] LABS: Calcium 8.5 mg/dL (8.5-10.1); Carbon Dioxide 20.8 meq/L (21.0-32.0); Magnesium 1.6 mg/dL (1.5-2.5); Potassium 4.3 meq/L (3.5-5.1)
[2018-04-06 08:12] VITALS: RESP 17; O2SAT 98
--- NOTE | 2018-04-06 08:23 | P.DCO ---
Diagnosis (1) Acute kidney injury: Status: Acute (2) Hypertension: Status: Acute (3) Hydronephrosis of left kidney: Status: Chronic (4) Anemia: Status: Acute Physical Therapy Order: Evaluate and treat Home Health Nursing Order: Medical education and Nursing assessment with vital signs Case Management Consult Case Management Consult-Home Health: Yes I have seen patient Khoa Quinonez on 04/06/18. My clinical findings support the need for the requested home health care services because: Deconditioned with increased weakness I certify that my clinical findings support that this patient is homebound because: _ (1) Hypertension Qualifiers: Hypertension type: (2) Anemia Qualifiers: Anemia type: Iron deficiency anemia type: Vitamin B12 deficiency anemia type: Folate deficiency anemia type: Bone marrow failure anemia type: Hemolytic anemia type: Other causes of anemia: Chronic kidney disease stage :
[2018-04-06] MEDS: Cefepime Inj 500 MG in Sodium Chlor 0.9% Inj 100 ML IV.SIG SCH ×2 (08:58→12:21)
[2018-04-06] MEDS: hydrALAZINE 50 MG Tablet PO SCH (09:00)
[2018-04-06] MEDS: Metoprolol Tartrate 25 MG Tablet PO SCH (09:00)
[2018-04-06] MEDS: Senna/Docusate Sodium 8.6/50 MG Tablet PO SCH (09:01)
[2018-04-06 12:08] VITALS: BP 129/85; PULSE 86; TEMP 98.8
--- NOTE | 2018-04-06 12:23 | P.DS ---
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 37 yo m presented with left horse shoe kidney stone,hydronephrosis, sepsis. He is s/p nephrostomy with initial resolution of Parish. Now again with elevated cr. Kindly evaluate.thank you Notified:: Service Spoke with:: Delemr Date Notified:: 03/12/18 Time Notified:: 19:36 Ordering Provider: LORIN 03/13/18 12:47 Consult to Gastroenterology Routine Consulting Provider: Wilfred Ortiz Reason for Consultation: dysphagia, has been evaluated by filling machine operator, recommend GI eval. thank you Notified:: Office Spoke with:: glenn Date Notified:: 03/13/18 Time Notified:: 13:48 Ordering Provider: LORIN 03/17/18 14:23 Consult to Infectious Diseases Routine Consulting Provider: Naomie Rucker Reason for Consultation: possible pyelonephritis on admission. Have stopped antibiotics. Renal failure now needing dialysis. is there an infection? Notified:: Service Spoke with:: DAIV Date Notified:: 03/17/18 Time Notified:: 14:47 Ordering Provider: BHAVIN Brief History from admission: 37 y/o male with a history of asthma, and seizures (as a child, not on medication) was a transfer from [facility] due to abdominal pain resulting in hydronephrosis of the left side. Patient states he has had abdominal pain on his left side that started this morning. He states the pain is an 8/10, constant, throbbing, with radiation to his back, with associated nausea and hematuria, worse with movement, better with pain medication. Denies any chest pain, sob, fever or chills. no history of kidney stones. DS: Diagnosis Discharge Diagnosis (1) Acute kidney injury: Status: Acute (2) Hypertension: Status: Acute (3) Hydronephrosis of left kidney: Status: Chronic (4) Anemia: Status: Acute DS: Summary This patient is a 37 y/o male with abd pain and hematuria who was found to be septic due to pyelonephritis with left horseshoe kidney and severe hydronephrosis and upj stenosis. He was admitted and evaluated by urology who set the patient up for percutaneous nephrostomy tube by IR on 03/08. Patient continued to have gross hematuria and required 2 units prbc on 03/08 and again on 03/11. Patient also had worsening renal failure and is being followed by nephrology. 04/06/18 1. Septic shock with hypotension and Lactic acidosis 2/2 pyelonephritis. 2. Severe hydronephrosis with upj obstruction with left horseshoe kidney s/p percutaneous nephrostomy tube placement 03/08 3. PARISH likely due to ATN, vancomycin, sepsis, and previous obstruction Patient examined, labs and vitals reviewed. Patient without fevers overnight. Urine cx growing pseudomonas, we will give the patient Cipro on discharge for one more week. GFR greater than 30 currently. Blood cxs negative. Patient was cleared for discharge from nephrology. Cr continues to downtrend and is currently at around 2. Dialysis catheter will be removed today prior to his discharge. Patient needs to follow up with pcp in one week. F/u with nephrology within two weeks. Repeat renal panel within a week. 03/21 status post cystoscope with stenting by urology. Patient had a left nephrostomy tube placed which ended up falling out on 03/27. Patient is urinating well, hgb stable around 9.6. Still has hematuria. I discussed the case with Dr. Turpin, pt can be discharged and he may still continue to have hematuria from the large hematoma seen on CT imaging. F/u with Dr. Turpin in 2 weeks. 1. Septic shock with hypotension and Lactic acidosis 2/2 pyelonephritis. Resolved. Shock resolved, lactate was elevated at 6.9 initially. S/p tx with zosyn. Blood cxs negative, urine cx negative. 2. Severe hydronephrosis with upj obstruction with left horseshoe kidney s/p percutaneous nephrostomy tube placement 03/[address] scan abd/pelvis shows significant hemorrhage inside the left kidney. 03/21 status post cystoscope with stenting by urology. Urology following the patient, recommending conservative management for now. Urology is recommending conservative management for now. Hgb is stable 10.4 yesterday, nephrostomy tube shows bloody urine. F/u am labs. Patient will need clearance from Urology prior to discharge. 3. PARISH likely due to ATN, vancomycin, sepsis, and previous obstruction Patient is having urine output HD will be done again today as per Nephrology note. Continue to follow with Nephrology recs. Cr 4.2 F/u am labs Avoid nephrotoxic agents. Patient will need clearance from nephrology prior to discharge. 5. Dysphagia normal barium swallow, Continue Protonix EGD 03/16 showed esophageal stricture status post dilatation biopsy pending now tolerating solid food 6. Hypertension history controlled, continue hydralazine metoprolol Scds for dvt prophylaxis, no pharmacotherapy given current hemorrhage. Time Spent with Patient Total time spent providing and/or coordinating discharge services: Quality: VTE Deep Vein Thrombosis/Pulmonary Embolism Present on Admission: No Exam Narrative Exam Narrative: alert and oriented S1S2 CTA b/l no edema of the exts no focal neuro deficits Results Procedures completed during hospitalization: 03/08percutaneous nephrostomy in the left kidney 03/16 upper endoscopy 03/17 right IJ Vas-Cath 03/21 Cystoscopy with clot retention with bilateral retrograde studies, right ureteral dilatation, bilateral double-J stent insertio Completed studies during hospitalization: Pending at discharge 03/16/18 13:00 Surgical [PTH] Routine Labs on day of discharge: Labs from last 24 hours 04/06/18 04/06/18 06:43 06:43 Hgb 9.6 L Hct 28.9 L Sodium 140 Potassium 4.3 Chloride 112 H Carbon Dioxide 20.8 L Anion Gap 7 BUN 20 H Creatinine 2.04 H Estimated GFR 37 L Random Glucose 77 Calcium 8.5 Magnesium 1.6 Preliminary micro results at discharge 04/03/18 01:23 Aerobic Blood Culture - Preliminary Blood - Peripheral No growth in 3 days Anaerobic Blood Culture - Preliminary No growth in 3 days 04/03/18 01:15 Aerobic Blood Culture - Preliminary Blood - Peripheral No growth in 3 days Anaerobic Blood Culture - Preliminary No growth in 3 days Impressions ITS Impressions Nephrostomy 03/08/18 00:00 CONCLUSION: 1. Uncomplicated nephrostomy tube placement as above. CT scan will be repeated to evaluate the kidney following percutaneous drainage Abdomen/Bladder Ultrasound 03/13/18 00:00 CONCLUSION: 1. Markedly abnormal left kidney with nephrostomy tube in place. 2. Repeat noncontrast CT scan may be of benefit. Videofluoroscopic Swallow 03/14/18 15:40 CONCLUSION: Unremarkable modified swallow. See speech pathology report. Barium Swallow X-Ray 03/15/18 00:00 CONCLUSION: 1. Limited examination with no stricture or ulceration. 2. Small reducible hiatal hernia. Catheter Placement 03/17/18 00:00 CONCLUSION: 1. Uncomplicated right IJ Vas-Cath placement as above. Chest X-Ray 03/24/18 06:00 CONCLUSION: Small bilateral effusions. Diffuse interstitial prominence. Abdomen/Pelvis CT 03/27/18 00:00 CONCLUSION: 1. Again seen is a large hemorrhage on the left. Nephrostomy tube has been replaced by double-J stents. 2. Trace free fluid in the pelvis stable in the interval. 3. Pleural effusions have decreased in size. Discharge Plan Discharge Disposition Patient Disposition: /Home Health Service Discharge Order Discharge Orders: Discharge Order (Routine); Ordered 04/06/18 Ordered By: Rustam Feliciano Discharge Details Discharge Comment: Remove dialysis catheter prior to discharge. Physicians Team Attending Provider: Rustam Feliciano Other Providers: Hema Bolton ; Jorge Luis Scott ; Wilfred Ortiz ; Naomie Rucker Rxs /Orders / Referrals /Forms Prescriptions: New megestrol 40 mg Tablet 40 mg PO DAILY Qty: 30 RF: 0 hydralazine 50 mg Tablet 50 mg PO TID Qty: 90 RF: 0 oxybutynin chloride 5 mg Tablet 5 mg PO BID Qty: 60 RF: 0 metoprolol tartrate 25 mg Tablet 12.5 mg PO BID Qty: 60 RF: 0 ciprofloxacin HCl 500 mg tablet 500 mg PO Q12H Qty: 14 RF: 0 Ambulatory Orders / Order Sets / DME: Walker With Front Wheels (1 each) (Routine) Location: Determined by Patient Ordered By: Rustam Feliciano Referrals: Reginald Mays [Other] - 04/10/18 2:00 pm (Please bring your discharge packet with you to appointment) Jorge Luis Scott MD [Physician] - See Instructions Burak Turpin DO [UROLOGY] - See Instructions Discharge Instructions Patient Printed Instructions: Oxybutynin (By mouth), Cystoscopy (DC) Additional Instructions: Follow up with urology in 2 weeks. F/u with nephrology in 1-2 weeks. F/u with pcp in one week. Renal panel should be checked during next clinic visit with pcp.
--- NOTE | 2018-04-06 16:43 | P.PNNP ---
Subjective Interval history: Seen in AM. No acute events overnight. No shortness of breath, nausea, or vomiting. Creatinine continues to improve. <Wandy Pathak - Last Filed: 04/06/18 16:40> Physical Exam Vital signs: Vital Signs 04/05/18 20:00 04/05/18 23:54 04/06/18 04:00 Temperature 98.1 F 98.3 F 98.3 F Pulse Rate 80 84 90 Respiratory Rate 19 19 18 Blood Pressure 136/75 129/78 126/81 Pulse Oximetry 98 97 97 04/06/18 08:00 04/06/18 12:00 Temperature 98.0 F 98.8 F Pulse Rate 66 86 Respiratory Rate 17 17 Blood Pressure 132/84 129/85 Pulse Oximetry 98 98 Intake & Output 04/05/18 04/06/18 04/06/18 18:59 06:59 18:59 Intake Total 820 / 820 800 / 800 100 / 100 Output Total 1500 / 1500 Balance -680 / -680 800 / 800 100 / 100 Weight 60.1 kg Intake: IV 100 / 100 100 / 100 Maxipime Inj 500 MG In NS Inj 100 / 100 100 / 100 100 ML @ 200 mls/hr IV.SIG Q24H CHLOE Rx#:[id number] Oral 720 / 720 800 / 800 Output: Urine 1500 / 1500 Other: # Voids 3 Date of Last Bowel Movement 04/02/18 04/02/18 04/03/18 Narrative: GENERAL: Alert and oriented. Thin SKIN: Warm and dry. NECK: Supple, trachea midline. No JVD CARDIOVASCULAR: Tachycardia. Regular rate and rhythm without murmurs, gallops, or rubs. right IJ vas cath. RESPIRATORY: Breath sounds equal bilaterally. No accessory muscle use. GASTROINTESTINAL: Abdomen soft, non-tender, nondistended. +BS GI: Indwelling price catheter with red colored urine. MUSCULOSKELETAL: No cyanosis, or edema. . - Urinary Catheter Management Indwelling Urethral Catheter Cath placed during this visit: yes Reason for continuing: Gross Hematuria Insertion date: 03/09/18 Insertion time: 10:03 3-way Urethral Cath placed during this visit: yes, but has since been removed by the nurse Reason for continuing: Gross Hematuria Insertion date: 03/21/18 Removal date: 04/03/18 Removal time: 10:45 <Wandy Pathak - Last Filed: 04/06/18 16:40> Vital signs: Vital Signs 04/05/18 23:54 04/06/18 04:00 04/06/18 08:00 Temperature 98.3 F 98.3 F 98.0 F Pulse Rate 84 90 66 Respiratory Rate 19 18 17 Blood Pressure 129/78 126/81 132/84 Pulse Oximetry 97 97 98 04/06/18 12:00 Temperature 98.8 F Pulse Rate 86 Respiratory Rate 17 Blood Pressure 129/85 Pulse Oximetry 98 Intake & Output 04/06/18 04/06/18 04/07/18 06:59 18:59 06:59 Intake Total 800 / 800 100 / 100 Balance 800 / 800 100 / 100 Weight 60.1 kg Intake: IV 100 / 100 Maxipime Inj 500 MG In NS Inj 100 / 100 100 ML @ 200 mls/hr IV.SIG Q24H CHLOE Rx#:[id number] Oral 800 / 800 Other: # Voids 3 Date of Last Bowel Movement 04/02/18 04/03/18 - Urinary Catheter Management Indwelling Urethral Catheter Cath placed during this visit: no 3-way Urethral Cath placed during this visit: no <Jorge Luis Scott - Last Filed: 04/06/18 21:39> Assessment and Plan - Assessment (1) Acute kidney injury Code(s): N17.9 - Acute kidney failure, unspecified Status: Acute Plan: Patient with horse shoe kidney, and develop PARISH. Post Left Nephrostomy and stent placement. Started HD on 03/17 for 5 sessions with last HD on the . S/p cysto with stent placement Creatinine continue to improve at 2.0, Non oliguric Discussed avoiding NSAIDS outpatient and other nephrotoxins. Per nephrology patient is cleared for discharge will need follow up outpatient with nephrology. (2) Hypertension Code(s): I10 - Essential (primary) hypertension Status: Acute Plan: continue to monitor. Better controlled. (3) Hydronephrosis of left kidney Code(s): N13.30 - Unspecified hydronephrosis Status: Chronic Onset Date: Unknown Plan: Cysto with stent placement. (4) Anemia Code(s): D64.9 - Anemia, unspecified Status: Acute Plan: HGB at stable <Wandy Pathak - Last Filed: 04/06/18 16:40> - Assessment (1) Acute kidney injury Code(s): N17.9 - Acute kidney failure, unspecified Status: Acute Plan: Patient with PARISH, and post stent with hematuria. Creatinine improving, now 2.0. For discharge, to follow as out patient. (2) Hypertension Code(s): I10 - Essential (primary) hypertension Status: Acute (3) Hydronephrosis of left kidney Code(s): N13.30 - Unspecified hydronephrosis Status: Chronic Onset Date: Unknown (4) Anemia Code(s): D64.9 - Anemia, unspecified Status: Acute <Jorge Luis Scott - Last Filed: 04/06/18 21:39>
== END 2018-04-06 13:09 | disposition home health service (06) | DRG 853 ==
LOC: N06 22:20 → N03 03-08 12:05 → N07 03-28 19:49
PROVIDERS: ADMIT Hospitalist; ATTEND Hospitalist
PROC: PANENDO (2018-03-16 10:30)
DX: N17.0 Acute kidney failure with tubular necrosis; R31.0 Gross hematuria; R13.14 Dysphagia, pharyngoesophageal phase; Z87.891 Personal history of nicotine dependence; K21.9 Gastro-esophageal reflux disease without esophagitis; N18.9 Chronic kidney disease, unspecified; Z87.440 Personal history of urinary (tract) infections; Y92.230 Patient room in hospital as the place of occurrence of the external cause; Z68.1 Body mass index [BMI] 19.9 or less, adult; J98.11 Atelectasis; E87.70 Fluid overload, unspecified; J90 Pleural effusion, not elsewhere classified; Q63.1 Lobulated, fused and horseshoe kidney; E43 Unspecified severe protein-calorie malnutrition; R30.1 Vesical tenesmus; E87.6 Hypokalemia; J45.909 Unspecified asthma, uncomplicated; N13.6 Pyonephrosis; D62 Acute posthemorrhagic anemia; R65.21 Severe sepsis with septic shock; A41.9 Sepsis, unspecified organism; K29.50 Unspecified chronic gastritis without bleeding; N32.89 Other specified disorders of bladder; T36.8X5A Adverse effect of other systemic antibiotics, initial encounter; I12.9 Hypertensive chronic kidney disease with stage 1 through stage 4 chronic kidney disease, or unspecified chronic kidney disease; D63.1 Anemia in chronic kidney disease; K22.2 Esophageal obstruction; E87.2 Acidosis
CPT/HCPCS: 36430; 36556; 50432; 71010; 71045; 74176; 74230; 74420; 75998; 76775; 76937; 77001; 80048; 80053; 80069; 80074; 80076; 80202; 81001; 83605; 83735; 83935; 84100; 84132; 84300; 85014; 85018; 85025; 85027; 85384; 85610; 85730; 86021; 86038; 86850; 86900; 86901; 86923; 87040; 87077; 87086; 87186; 87205; 87493; 88305; 88312; 90774; 90775; 90784; 90935; 92526; 92610; 92611; 93005; 94150; 96374; 96375; 97110; 97116; 97162; 97530; 99145; 99152; 99153; A4646; C1729; C1752; C1758; C1765; C1769; C1894; C2617; C8952; G0195; G0196; J0360; J0690; J0692; J0696; J0780; J0886; J1170; J1580; J1644; J1940; J2250; J2270; J2405; J2543; J2704; J2710; J2765; J3010; J3370; J3475; J3480; J7030; J7050; J7120; P9016; Q4055; Q4081; Q9950; Q9963; Q9965; Q9967